=== PATIENT | male | born 1950 | race Caucasian/White ===

== ENCOUNTER 2023-10-03 12:11 | Outpatient (OUT) | payer MEDICARE, SELFPAY ==
[2023-10-03 14:02] LABS: Prostate Specific Antigen Dx <0.13 ng/mL (<=4.00)
== END 2023-10-03 12:12 | disposition home or self-care (01) ==
LOC: LAB 12:11
PROVIDERS: PCP Internal Medicine
DX: C61 Malignant neoplasm of prostate (principal)
CPT/HCPCS: 36415; 84153

== ENCOUNTER 2024-05-30 13:17 | Outpatient (OUT) | payer MEDICARE, SELFPAY ==
--- NOTE | 2024-05-30 | CT_ITS ---
[address] [address] Patient Name: BRIAN BARNARD MRN: [id number] date: 1950 Sex: M Assigned Patient Location: LAB Current Patient Location: Accession/Order Number: [id number] Exam Date: 05/30/2024 14:25 Report Date: 06/01/2024 10:20 At the request of: ADEBAYO CARVALHO Procedure: CT abdomen pelvis w con EXAMINATION: CT abdomen pelvis w con HISTORY: Distended abdomen COMPARISON: CT abdomen pelvis 03/16/2022 TECHNIQUE: Axial, Coronal, and Sagittal images were obtained without and/or with IV contrast as indicated by examination type. Dose reduction techniques were achieved by using automated exposure control and/or adjustment of mA and/or kV according to patient size and/or use of iterative reconstruction technique. FINDINGS: LUNG BASES: No visible pulmonary or pleural disease. LIVER: No enlargement, atrophy, suspicious density, or significant focal lesion. BILIARY: No dilatation or calcification. PANCREAS: No lesion, fluid collection, or abnormal duct dilatation. SPLEEN: No enlargement or focal lesion. ADRENALS: No mass or enlargement. KIDNEYS: No mass, obstruction, or calcification. BOWEL/MESENTERY: No visible mass, obstruction, or bowel wall thickening. AORTA/VASCULAR: No aneurysm or dissection. RETROPERITONEUM: No mass or adenopathy. LYMPH NODES: No adenopathy. URINARY BLADDER: No visible focal wall thickening, lesion, or calculus. PELVIC ORGANS: No visible mass. Pelvic organs appropriate for patient age. ABDOMINAL WALL: No mass or hernia. BONES: L5-S1 moderate disc space narrowing. No bony lesion or fracture. OTHER: Negative. CT/CT abdomen pelvis w con IMPRESSION: 1. No abnormal or suspicious findings to account for patient's symptoms. 2. L5-S1 moderate degenerative disc disease. Electronically authenticated by: BLAYNE YOUNG Date: 06/01/2024 10:20
--- NOTE | 2024-05-30 | XR_ITS ---
The [address] [address] Patient Name: BRIAN BARNARD MRN: [id number] date: 1950 Sex: M Assigned Patient Location: LAB Current Patient Location: LAB Accession/Order Number: [id number] Exam Date: 05/30/2024 14:20 Report Date: 06/02/2024 04:37 At the request of: ADEBAYO CARVALHO Procedure: XR chest 2V EXAMINATION: XR chest 2V HISTORY: COPD exacerbation J44.1 , shortness breath COMPARISON: XR chest 05/31/2019 FINDINGS: LUNGS: Hyperexpanded lungs with coarsening of interstitial markings compatible with COPD. VASCULATURE: No increased pulmonary vasculature. PLEURA: No pneumothorax, effusion, or pleural thickening. CARDIAC: No cardiomegaly or cardiac silhouette abnormality. MEDIASTINUM: No visible mass or adenopathy. BONES: No fracture or visible bone lesion. OTHER: Negative. XR/XR chest 2V IMPRESSION: 1. No acute cardiopulmonary process. 2. Grossly stable chronic changes compatible with COPD. Electronically authenticated by: BLAYNE YOUNG Date: 06/02/2024 04:37
--- OUTSIDE RECORDS SUMMARY | 2024-05-30 13:32 | XMS_ITS | CCD ---
Author Organization [facility] Inform ion Partnership [facility] Care Team Providers Care Rail Bender Name Role Phone Radames Mart MD Primary Care Provider MAYDA CASTRO Admitting Unavailable MAYDA CASTRO Attending Unavailable RADAMES MART Primary Care Unavailable MAYDA CASTRO Referring Unavailable RADAMES MART Primary Care Unavailable RADAMES MART Primary Care Unavailable MAYDA CASTRO Referring Unavailable Orlando Valencia Unavailable MISC, DR LAU Admitting Unavailable MAIA, DR FIORE Primary Care Unavailable MISC, DR LAU Attending Unavailable MISC, DR LAU Consulting Unavailable MAIA, DR FIORE Primary Care Unavailable MISC, DR LAU Attending Unavailable MISC, DR LAU Consulting Unavailable MISC, DR LAU Admitting Unavailable ZIEBER, DR BLAYNE Mendez Consulting Unavailable MISC, DR LAU Admitting Unavailable MAIA, DR FIORE Primary Care Unavailable MISC, DR LAU Attending Unavailable MISC, DR LAU Consulting Unavailable MISC, DR LAU Admitting Unavailable MAIA, DR FIORE Consulting Unavailable MART, DR FIORE Primary Care Unavailable MISC, DR LAU Attending Unavailable RADAMES MART Attending Unavailable Allergies Allergy Classification Reported Allergen(s) Allergy Type Date of Onset Reaction(s) Facility (1 source) Theophylline Drug Allergy [facility] Shoobs Other Medications Current Medications Medication Drug Class(es) Dates Sig (Normalized) Sig (Original) 30 actuat aclidinium bromide 0.4 mg/actuat dry powder inhaler (3 sources) take 1 puff(s) by mo uth twice daily aclidinium (TUDORZA PRESSAIR) 400 MCG/ACT AEPB inhaler INHALE 1 PUFF BY MOUTH 2 TIMES A DAY 0 Active take 1 puff(s) by inhalation at bedtime ACLIDINIUM BROMIDE IN Inhale 1 puff into the lungs in the morning and at bedtime 0 Active Aclidinium Hortense 400 MCG/ACT (1 source) take 1 puff(s) by inhalation once daily Aclidinium Hortense 400 MCG/ACT 1 puff Inhalation daily Active [id number] actuat albuterol 0.09 mg/actuat metered dose inhaler (3 sources) beta2-Adrenergic Agonist take 2 puff(s) by inhalation four times daily Albuterol Sulfate HFA 108 (90 Base) MCG/ACT 2 puffs Inhalation four times a day Active take 2 puff(s) by in halation every six hours as needed ALBUTEROL IN Inhale 2 puffs into the lungs every 6 hours PRN 0 Active bicalutamide 50 mg oral tablet (1 source) Androgen Receptor Inhibitor take 1 tablet by mouth every twenty-four hours Bicalutamide 50 MG 1 tablet Orally Once a day Active 120 actuat budesonide 0.16 mg/actuat / formoterol fumarate 0.0045 mg/actuat metered dose inhaler (1 source) Corticosteroid, beta2-Adrenergic Agonist take 2 puff(s) by inhalation twice daily Budesonide-Formotero l Fumarate 160-4.5 MCG/ACT 2 puffs Inhalation Twice a day Active calcium chloride 0.0014 meq/ml / potassium chloride 0.004 meq/ml / sodium chloride 0.103 meq/ml / sodium lactate 0.028 meq/ml injectable solution (1 source) Start: 05-04-20 lactated ringers infusion Start: 05-04-2022 lactated ringe rs infusion clopidogrel 75 mg oral tablet (3 sources) P2Y12 Platelet Inhibitor take 1 tablet by mouth every twenty-four hours Plavix 75 MG 1 tablet Orally Once a day Active Doxazosin (2 sources) alpha-Adrenergic Alex Start: DOXAZOSIN MESYLATE PO take 1 tablet by shirlene th every twenty-four hours Doxazosin Mesylate 2 MG 1 tablet Orally Once a day Active 60 actuat fluticasone propionate 0.25 mg/actuat / salmeterol 0.05 mg/actuat dry powder inhaler (2 sources) Corticosteroid, beta2-Adrenergic Agonist take 1 puff(s) by inhalation every twelve hours fluticasone-salmeterol (ADVAIR) 250-50 MCG/ACT AEPB diskus inhaler Inhale 1 puff into the lungs every 12 hours 0 Active 10 ml lidocaine hydrochloride 10 mg/ml injection (1 source) Antiarrhythmic, Amide Local Anesthetic Start : 05-04 End: 05-04 lidocaine PF 1 % injection 1 mL linaclotide (1 source) Guanylate Cyclase-C Agonist Linzess PRN Active mirtazapine 30 mg oral tablet (4 sources) take 1 tablet by mouth every twenty-four hours Mirtazapine 30 MG 1 tablet at bedtime Orally Once a day Active mirtazapine (REM JAYNA) 15 MG tablet 1 tablet 0 Active take 1 tablet by mouth once raya y mirtazapine (REMERON JESSE-TAB) 30 MG disintegrating tablet Take 30 mg by mouth nightly 0 Active omeprazole 20 mg delayed release oral capsule (3 sources) Proton Pump Inhibitor take 1 capsule by mouth once daily PriLOSEC 20 MG 1 capsule Orally Once a day for 30 day(s) Active Oxygen 2 liters (1 source) Oxygen 2 liters Active simvastatin 40 mg oral tablet (3 sources) HMG-CoA Reductase Inhibitor take 1 tablet by mouth once daily in the evening Simvastatin 40 MG 1 tablet in the evening Orally Once a day Active 5 ml sodium chloride 9 mg/ml injection (3 sources) Start: 0.9 % sodium chloride infusion Start: 05-03-2022 sodium chlorid e flush 0.9 % injection 5-40 mL Wixela Inhub 500-50 MCG/DOSE (1 source) Start: 05-02-2019 take 1 puff(s) by inhalation twice daily Wixela Inhub 500-50 MCG/DOSE 1 puff Inhalation Twice a day for 30 days Apr, Active Problems Problem Classification Problem Date Documented Da te Episodic/Chronic Cancer of prostate (4 sources) Malignant neoplasm of prostate; Translations: [MALIGNANT NEOPLASM OF PROSTATE] Onset: 04-04-2023 Chronic Chronic obstructive pulmonary disease and bronchiectasis (1 source) Emphysema; Translations: [Emphysema, unspecified] Chronic Immunizations and screening for infectious disease (1 source) Contact with and (suspected) exposure to tuberculosis; Translations: [Exposure to tuberculosis (event)] Episodic Other gastrointestinal disorders (1 source) Flatulence, eructation and gas pain; Translations: [Abdominal distension (gaseous)] Episodic Other gastrointestinal disorders (1 source) Constipation; Translations: [Constipation, unspecified] Episodic Other gastrointestinal disorders (1 source) Abdominal distension (gaseous) Episodic Other gastrointestinal disorders (1 source) Constipation, unspecified Episodic Other lower respiratory disease (1 source) Multiple nodules of lung; Translations: [Other nonspecific abnormal finding of lung field] Episodic Other screening for suspected conditions (not mental disorders or infectious disease) (1 source) Raised prostate specific antigen; Translations: [Elevated prostate specific antigen [PSA]] Episodic Results Test Name Value Interpretation Reference Range Facility [place] BONE SC BODYon 022 NM BONE [facility] BODY EXAMINATION: NM BONE SC BODY HISTORY: Primary malignant neoplasm of prostate COMPARISON: No relevant comparison available. TECHNIQUE: After obtaining the patient's consent, 25.5 mCi Technetium 99m MDP was injected intravenously. Images were obtained approximately two hours later. FINDINGS: ABNORMALITIES: No abnormal or suspicious radiotracer accumulation. OTHER: Negative. IMPRESSION: 1. No evidence of skeletal metastasis. Electronically authenticated by: BLAYNE YOUNG Date: 2022-07-26 14:47 Normal [facility] Surgical Pathologyon 022 Surgical Pathology (NOTE) -- Diagnosis -- A. PROSTATE, RIGHT BASE LATERAL, NEEDLE CORE BIOPSY: - BENIGN PROSTATIC TISSUE. B. PROSTATE, AREA OF INTEREST, NEEDLE CORE BIOPSIES: - PROSTATIC ADENOCARCINOMA, LACY SCORE 4+3 = 7 (GRADE GROUP 3), 3 FOCI (5, 5 AND 8 MM) IN 3 OF 3 NEEDLE CORE BIOPSIES (46%). - SEE COMMENT. C. PROSTATE, LEFT APEX MEDIAL, NEEDLE CORE BIOPSY: - BENIGN PROSTATIC TISSUE. D. PROSTATE, LEFT APEX LATERAL, NEEDLE CORE BIOPSY: - ATYPICAL SMALL ACINAR PROLIFERATION (BRADEN). E. PROSTATE, LEFT MID MEDIAL, NEEDLE CORE BIOPSY: - BENIGN PROSTATIC TISSUE. F. PROSTATE, LEFT MID LATERAL, NEEDLE CORE BIOPSY: - PROSTATIC ADENOCARCINOMA, LACY SCORE 4+3 = 7 (GRADE GROUP 3), 9 MM IN 1 NEEDLE CORE BIOPSY (75%). G. PROSTATE, LEFT BASE MEDIAL, NEEDLE CORE BIOPSY: - PROSTATIC ADENOCARCINOMA, LACY SCORE 3+4 = 7 (GRADE GROUP 2), 0.5 MM FOCUS IN 1 NEEDLE CORE BIOPSY (3%). H. PROSTATE, LEFT BASE LATERAL, NEEDLE CORE BIOPSY: - PROSTATIC ADENOCARCINOMA, LACY SCORE 4+3 = 7 (GRADE GROUP 3), 4.5 MM IN 1 NEEDLE CORE BIOPSY (30%). I. PROSTATE, RIGHT APEX MEDIAL, NEEDLE CORE BIOPSY: - BENIGN PROSTATIC TISSUE. J. PROSTATE, RIGHT BASE MEDIAL, NEEDLE CORE BIOPSY: - BENIGN PROSTATIC TISSUE. K. PROSTATE, RIGHT MID LATERAL, NEEDLE CORE BIOPSY: - BENIGN PROSTATIC TISSUE. L. PROSTATE, RIGHT APEX LATERAL, NEEDLE CORE BIOPSY: - BENIGN PROSTATIC TISSUE. M. PROSTATE, RIGHT MID MEDIAL, NEEDLE CORE BIOPSY: - BENIGN PROSTATIC TISSUE. -- Diagnosis Comment -- SPECIMEN B WAS EVALUATED WITH IMMUNOSTAIN FOR P504S/HMW CK/P63 (TRIPLE STAIN*, CONTROL APPROPRIATE), WHICH DEMONSTRATES RACEMASE EXPRESSION AND LACK OF A BASAL CELL LAYER IN THE ABNORMAL GLANDS, CONSISTENT WITH ADENOCARCINOMA. THE LACY GRADE 4 COMPONENT COMPRISES APPROXIMATELY 60-70% OF THE ADENOCARCINOMA IN THE INVOLVED BIOPSIES. FOR CARDING SUPERVISOR THE SLIDES OF SPECIMEN B WERE REVIEWED BY A SECOND PATHOLOGIST (FERNANDO). * THIS TEST WAS DEVELOPED AND ITS PERFORMANCE CHARACTERISTICS DETERMINED BY [facility]. IT HAS NOT BEEN CLEARED OR APPROVED BY THE [place] FOOD AND DRUG ADMINISTRATION. THE FDA HAS DETERMINED THAT SUCH CLEARANCE OR APPROVAL IS NOT NECESSARY. THIS TEST IS USED FOR CLINICAL PURPOSES. IT SHOULD NOT BE REGARDED INVESTIGATIONAL OR FOR RESEARCH. THIS LABORATORY IS CERTIFIED UNDER THE CLINICAL LABORATORY IMPROVEMENT AMENDMENTS OF 1988 (CLIA) QUALIFIED TO PERFORM HIGH COMPLEXITY CLINICAL LABORATORY TESTING. Jean-Pierre Gallardo M.D. Electronically Signed Out 05/05/2022 Clinical Information Pre-op Diagnosis: ELEVATED PSA Operative Findings: PROSTATE BIOPSIES Operation Performed: FUSION PROSTATE BIOPSY WITH ULTRASOUND Source of Specimen A: RIGHT BASE LATERAL B: AREA OF INTEREST C: LEFT APEX MEDIAL D: LEFT APEX LATERAL E: LEFT MID MEDIAL F: LEFT MID LATERAL G: LEFT BASE MEDIAL H: LEFT BASE LATERAL I: RIGHT APEX MEDIAL J: RIGHT BASE MEDIAL K: RIGHT MID LATERAL L: RIGHT APEX LATERAL M: RIGHT MID MEDIAL Gross Description BRIAN QUEZADA, PROSTATE BIOPSIES All specimens are received on sponges and are reid-white needle core biopsies less than < 0.1 cm in diameter with the following lengths: A. RIGHT BASE LATERAL Two cores, 0.5 and 0.6 cm in length. Entirely 1cs. B. AREA OF INTEREST Three cores, 1.0, 1.3 and 1.6 cm in length. Entirely 2cs. C. LEFT APEX MEDIAL One core, 1.5 cm in length. Entirely 1cs. D. LEFT APEX LATERAL One core, 0.8 cm in length. Entirely 1cs. E. LEFT MID MEDIAL One core, 1.3 cm in length. Entirely 1cs. F. LEFT MID LATERAL One fragmented core, 1.2 cm in length. Entirely 1cs. G. LEFT BASE MEDIAL One core, 1.5 cm in length. Entirely 1cs. H. LEFT BASE LATERAL One core, 1.5 cm in length. Entirely 1cs. I. RIGHT APEX MEDIAL Two cores, 0.4 and 0.6 cm in length. Entirely 1cs. J. RIGHT BASE MEDIAL One core, 1.5 cm in length. Entirely 1cs. K. RIGHT MID LATERAL Two cores, 0.5 and 0.7 cm in length. Entirely 1cs. L. RIGHT APEX LATERAL One core, 1.9 cm in length. Entirely 1cs. M. RIGHT MID MEDIAL Two core, 0.4 and 0.6 cm in length. Entirely 1cs. yr tm Microscopic Description A-M. Microscopic examination performed. SURGICAL PATHOLOGY CONSULTATION Patient Name: BRIAN QUEZADA [facility] Rec: [id number] Path Number: [id number] [facility] [address] [place] [id number] Normal [facility] Comment on above: Performed By: #### P PPVS #### [employer] [address] [place] [id number] Delivery Aide: Brady Wilkes MD EKG 12 LeadOrdered By: Ney Ferrara on 04-24-2022 Atrial Rate 91 BPM [employer] Phone: P Parchman 88 degrees [employer] Phone: P-R Interval 158 ms [employer] Phone: Q-T Interval 334 ms [employer] Phone: QRS Duration 90 ms [employer] Phone: QTc Calculation (Bazett) 410 ms [employer] Phone: R Parchman 42 degrees [employer] Phone: T Parchman 81 degrees [employer] Phone: Ventricular Rate 91 BPM KATHLEEN QUINONEZ [employer] Work Phone: [facility] [employer] Work Phone: EKG 12 Leadon 04-24-2022 Normal sinus rhythm Low voltage QRS Borderline ECG No previous ECGs available [facility] Ney Cohn MD - 04/24/2022 Normal sinus rhythm Low voltage QRS Borderline ECG No previous ECGs available [facility] [employer] Work Phone: BUN & Creatinineon 2 Creatinine [Mass/Vol] 0.93 mg/dL 0.70 - 1.20 mg/dL [facility] [employer] GFR >60 >60 mL/min [facility] GFR Non- >60 >60 mL/min [facility] GFR/1.73 sq M.predicted MDRD (S/P/Bld) [Vol rate/Area] [facility] Comment on above: Average GFR for 60-6 9 years old: 85 mL/min/1.73sq m Chronic Kidney Disease: <60 mL/min/1.73sq m Kidney failure: <15 mL/min/1.73sq m eGFR calculated using average adult body mass. Additional eGFR calculator available at: http://www.[employer]/multiple_crcl_2011.htm Urea nitrogen (BldV) [Mass/Vol] 10 mg/dL 8 - 23 mg/dL [facility] BUN + Creatinineon 2 (cont.) Normal [facility] Comment on above: Result Comment: Aver age GFR for 60-69 years old: 85 mL/min/1.73sq m Chronic Kidney Disease: <60 mL/min/1.73sq m Kidney failure: <15 mL/min/1.73sq m eGFR calculated using average adult body mass. Additional eGFR calculator available at: http://www.[employer]/multiple_crcl_2012.htm Performed By: #### C BC, BUNCRT, LYTE #### [facility] [address] [facility] [place] [address] Delivery Aide: Jean-Pierre Gallardo MD Creatinine [Mass/Vol] 0.93 mg/dL Normal 0.70-1.20 [facility] Comment on above: Performed By: #### C BC, BUNCRT, LYTE #### [facility] [address] [place] [address]. [place] [address] Delivery Aide: Jean-Pierre Gallardo MD GFR, Amer >60 Normal >60 [facility] Comment on above: Performed By: #### C BC, BUNCRT, LYTE #### [facility] [address] [place] [address]. [place] [address] Delivery Aide: Jean-Pierre Gallardo MD GFR,non Amer >60 Normal >60 [facility] Comment on above: Performed By: #### C BC, BUNCRT, LYTE #### [facility] [address] [place] [address]. [place] [address] Delivery Aide: Jean-Pierre Gallardo MD Urea nitrogen [Mass/Vol] 10 mg/dL Normal 8-23 [facility] Comment on above: Performed By: #### C BC, BUNCRT, LYTE #### [facility] [address] [place] [address]. [place] [address] Delivery Aide: Jean-Pierre Gallardo MD CBCon 04-23-2022 Erythrocyte distribution width (RBC) [Ratio] 11.9 % Normal 11.8-14.4 [facility] Comment on above: Performed By: #### C BC, BUNCRT, LYTE #### [facility] [address] [place] [address]. [place] [address] Delivery Aide: Jean-Pierre Gallardo MD Hematocrit (Bld) [Volume fraction] 45.0 % Normal 40.7-50.3 [facility] Comment on above: Performed By: #### C BC, BUNCRT, LYTE #### [facility] [address] [place] [address] Delivery Aide: Jean-Pierre Gallardo MD Hemoglobin (Bld) [Mass/Vol] 14.1 g/dL Normal 13.0-17.0 [facility] Comment on above: Performed By: #### Allan ROMERO BUNHEATHER, LYTE #### [facility] [address] [facility] [place] [address] Delivery Aide: Jean-Pierre Gallardo MD MCH (RBC) [Entitic mass] 30.5 pg Normal 25.2-33.5 [facility] Comment on above: Performed By: #### Allan ROMERO BUNCRT, LYTE #### [facility] [address] [place] [address]. [place] [address] Delivery Aide: Jean-Pierre Gallardo MD MCHC (RBC) [Mass/Vol] 31.3 g/dL Normal 28.4-34.8 [facility] Comment on above: Performed By: #### TONY HART LYTE #### [facility] [address] [place] [address]. [place] [address] Delivery Aide: Jean-Pierre Gallardo MD MCV (RBC) [Entitic vol] 97.4 fL Normal 82.6-102.9 [facility] Comment on above: Performed By: #### TONY HART, LYTE #### [facility] [facility] [place] [address] Delivery Aide: Jean-Pierre Gallardo MD NRBC Automated 0.0 per 100 WBC Normal 0.0 [facility] Comment on above: Performed By: #### Allan ROMERO BUNCRT, LYTE #### [facility] [address] [place] [address]. [place] [address] Delivery Aide: Jean-Pierre Gallardo MD Platelet mean volume (Bld) [Entitic vol] 9.9 fL Normal 8.1-13.5 [facility] Comment on above: Performed By: #### TONY HART LYTE #### [facility] [address] [place] [address] Delivery Aide: Jean-Pierre Gallardo MD Platelets (Bld) [#/Vol] 162 10*3/uL Normal 138-453 [facility] Comment on above: Performed By: #### TONY HART LYTE #### [facility] [address] [facility] [place] [address] Delivery Aide: Jean-Pierre Gallardo MD RBC (Bld) [#/Vol] 4.62 10*6/uL Normal 4.21-5.77 [facility] Comment on above: Performed By: #### TONY HART LYTE #### [facility] [address] [facility] [place] [address] Delivery Aide: Jean-Pierre Gallardo MD WBC (Bld) [#/Vol] 9.2 10*3/uL Normal 3.5-11.3 [facility] Comment on above: Performed By: #### TONY HART LYTE #### [facility] [facility] [place] [address] Delivery Aide: Jean-Pierre Gallardo MD Hematocrit (Bld) [Volume fraction] 45.0 % 40.7 - 50.3 % [facility] Hemoglobin.gastrointes tinal spec 1 Ql (Stl) 14.1 g/dL 13.0 - 17.0 g/dL [facility] MCH (RBC) [Entitic mass] 30.5 pg 25.2 - 33.5 pg [facility] MCHC (RBC) [Mass/Vol] 31.3 g/dL 28.4 - 34.8 g/dL [facility] MCV (RBC) [Entitic vol] 97.4 fL 82.6 - 102.9 fL [facility] NRBC Automated 0.0 0.0 per 100 WBC [facility] Platelet distribution width (Bld) [Ratio] 11.9 % 11.8 - 14.4 % [facility] Platelet mean volume (Bld) [Entitic vol] 9.9 fL 8.1 - 13.5 fL [facility] Platelets (Bld) [#/Vol] 162 10*3/uL [facility] RBC (Bld) [#/Vol] 4.62 10*6/uL 4.21 - 5.7 7 m/uL [facility] WBC (Bld) [#/Vol] 9.2 10*3/uL [facility] Electrolyte Panelon 04-23-20 Anion gap [Moles/Vol] 6 mmol/L Low 9 - 17 mmol/L [facility] Chloride [Moles/Vol] 101 mmol/L 98 - 10 7 mmol/L [facility] CO2 [Moles/Vol] 35 mmol/L High 20 - 31 mmol/L [facility] Interpretation and review of laboratory results Abnormal [facility] Potassium [Moles/Vol] 4.6 mmol/L 3.7 - 5.3 mmol/L [facility] Sodium [Moles/Vol] 142 mmol/L 135 - 144 mmol/L [facility] Electrolyteson 04-23-2022 Anion gap [Moles/Vol] 6 mmol/L Low 9-17 [facility] Comment on above: Performed By: #### C NICK BUNHEATHER, LYTE #### [facility] [address] [place] [address] Delivery Aide: Jean-Pierre Gallardo MD Chloride [Moles/Vol] 101 mmol/L Normal 98-107 [facility] Comment on above: Performed By: #### C NICK BUNCRT, LYTE #### [facility] [address] [place] [address] Delivery Aide: Jean-Pierre Gallardo MD CO2 [Moles/Vol] 35 mmol/L High 20-31 [facility] Comment on above: Performed By: #### TONY HART, LYTE #### [facility] [address] [place] [address] Delivery Aide: Jean-Pierre Gallardo MD Potassium [Moles/Vol] 4.6 mmol/L Normal 3.7-5.3 [facility] Comment on above: Performed By: #### C NICK BUNCRT, LYTE #### [facility] [address] [place] [address] Delivery Aide: Jean-Pierre Gallardo MD Sodium [Moles/Vol] 142 mmol/L Normal 135-144 [facility] Comment on above: Performed By: #### TONY HART LYTE #### [facility] [address] [place] [address] Delivery Aide: Jean-Pierre Gallardo MD No Panel Informationon 04-23 [facility] Chronic pulmonary change without acute cardiopulmonary process. [facility] RIS CONSOLIDATED EXAMINATION: TWO XRAY VIEWS OF THE CHEST 04/23/2022 9:14 am COMPARISON: None. HISTORY: ORDERING SYSTEM PROVIDED HISTORY: pre-op TECHNOLOGIST PROVIDED HISTORY: Pt in [facility] pre-op Reason for Exam: Pre op prostate surg, May 03, 2022. COPD FINDINGS: There is chronic pulmonary change. There is no acute consolidation or effusion. There is no pneumothorax. The mediastinal structures are unremarkable. The upper abdomen unremarkable. The extrathoracic soft tissues are unremarkable. [facility]IS [facility] Frank Roque MD - 04/23/2022 EXAMINATION: TWO XRAY VIEWS OF THE CHEST 04/23/2022 9:14 am COMPARISON: None. HISTORY: ORDERING SYSTEM PROVIDED HISTORY: pre-op TECHNOLOGIST PROVIDED HISTORY: Pt in [facility] pre-op Reason for Exam: Pre op prostate surg, May 03, 2022. COPD FINDINGS: There is chronic pulmonary change. There is no acute consolidation or effusion. There is no pneumothorax. The mediastinal structures are unremarkable. The upper abdomen unremarkable. The extrathoracic soft tissues are unremarkable. IMPRESSION: Chronic pulmonary change without acute cardiopulmonary process. [facility] [employer] Phone: Radiology Study observation (narrative) [facility] [employer] Phone: No Panel InformationOrdered By: Frank Roque on 04-23-2022 [email or web address] Phone: XR CHEST (2 VW)on 04-23-2022 XR CHEST (2 VW) EXAMINATION: TWO XRAY VIEWS OF THE CHEST 04/23/2022 9:14 am COMPARISON: None. HISTORY: ORDERING SYSTEM PROVIDED HISTORY: pre-op TECHNOLOGIST PROVIDED HISTORY: Pt in [facility] pre-op Reason for Exam: Pre op prostate surg, May 03, 2022. COPD FINDINGS: There is chronic pulmonary change. There is no acute consolidation or effusion. There is no pneumothorax. The mediastinal structures are unremarkable. The upper abdomen unremarkable. The extrathoracic soft tissues are unremarkable. IMPRESSION: Chronic pulmonary change without acute cardiopulmonary process. Interpreted by: Frank Roque MD Signed by: Frank Roque MD 04/23/22 Final result Normal [facility] Q - PSA (FREE AND TOTAL)on 0 02-02-2022 PSA, % FREE 13 % (calc) Low >25 [facility] Comment on above: Order Comment: [facility] Testing performed at: [employer], [address] [place] [address], [address] [place] [address], [phone], Manager Quality Systems: Fermín Aj MD [facility] Collection Date/Time: [id number] [facility] Results Received Date/Time: [id number] [facility] Reported Date/Time: Result Comment: PSA(ng/mL) Free PSA(%) Estimated(x) Probability of Cancer(as%) 0-2.5 (*) Approx. 1 2.6-4.0(1) 0-27(2) 24(3) 4.1-10(4) 0-10 56 11-15 28 16-20 20 21-25 16 >or =26 8 >10(+) N/A >50 References:(1)Kevin et al.:Urology 60: 469-474 (2002) (2)Kevin et al.:J.Urol 168: 922-925 (2001) Free PSA(%) Sensitivity(%) Specificity(%) < or = 25 85 19 < or = 30 93 9 (3)Hangona et al.:PAVAN 277: 7257-7389 (1996) (4)Catalona et al.:PAVAN 279: 6322-0327 (1997) (x)These estimates vary with age, ethnicity, family history and LEIF results. (*)The diagnostic usefulness of % Free PSA has not been established in patients with total PSA below 2.6 ng/mL (+)In men with PSA above 10 ng/mL, prostate cancer risk is determined by total PSA alone. The Total PSA value from this assay system is standardized against the equimolar PSA standard. The test result will be approximately 20% higher when compared to the WHO-standardized Total PSA (Siemens assay). Comparison of serial PSA results should be interpreted with this fact in mind. PSA was performed using the Jett Maggie Immunoassay method. Values obtained from different assay methods cannot be used interchangeably. PSA levels, regardless of value, should not be interpreted as absolute evidence of the presence or absence of disease. Performed By: #### 3 [id number] #### [facility] [address] [place] [address] PSA, FREE 0.9 ng/mL Normal [facility] [place] Comment on above: Order Comment: [facility] Testing performed at: [employer] [facility], [address] [place] [address], [address] [place] [address], [id number], Manager Quality Systems: Fermín Aj MD [facility] Collection Date/Time: [facility] Results Received Date/Time: [facility] Reported Date/Time: Performed By: #### 3 [id number] #### [facility] [address] [place] [address] PSA, TOTAL 7.0 ng/mL High < OR = 4.0 [facility] Comment on above: Order Comment: [facility] Testing performed at: [employer] [facility], [address] [place] [address], [address] [place], [address], Manager Quality Systems: Fermín Aj MD [facility] Collection Date/Time: [facility] Results Received Date/Time: [facility] Reported Date/Time: Performed By: #### 3 [id number] #### [facility] [address] [place] [address] Complete Blood Count with Au to Diffon 01-25-2022 Basophils (Bld) [#/Vol] 0.07 10*3/uL Normal 0.00-0.20 [facility] [place] Comment on above: Performed By: #### C BCAD, CMP, LIPD #### [facility] [address] [place], [place] [id number] Basophils/100 WBC (Bld) 1.0 % Normal [facility] [place] Comment on above: Performed By: #### C BCAD, CMP, LIPD #### [facility] [address] [place], [place] [id number] Eosinophils (Bld) [#/Vol] 0.23 10*3/uL Normal 0.02-0.50 [facility] [place] Comment on above: Performed By: #### C BCAD, CMP, LIPD #### [facility] [address] [place], [place] [id number] Eosinophils/100 WBC (Bld) 3.2 % Normal [facility] [place] Comment on above: Performed By: #### C BCAD, CMP, LIPD #### [facility] [address] [place], [place] [id number] Erythrocyte distribution width (RBC) [Ratio] 11.9 % Normal 11.0-15.0 [facility] [place] Comment on above: Performed By: #### C BCAD, CMP, LIPD #### [facility] [address] [place], [place] [id number] Hematocrit (Bld) [Volume fraction] 43.2 % Normal 38.5-50.0 [facility] [place] Comment on above: Performed By: #### C BCAD, CMP, LIPD #### [facility] [address] [place], [place] [id number] Hemoglobin (Bld) [Mass/Vol] 14.3 g/dL Normal 13.0-17.1 [facility] Comment on above: Performed By: #### C BCAD, CMP, LIPD #### [facility] [address] [place], [place] [id number] Lymphocytes (Bld) [#/Vol] 2.0 10*3/uL Normal 0.9-3.9 [facility] Comment on above: Performed By: #### C BCAD, CMP, LIPD #### [facility] [address] [place], [place] [id number] Lymphocytes/100 WBC (Bld) 28.0 % Normal [facility] Comment on above: Performed By: #### C BCAD, CMP, LIPD #### [facility] [address] [place], [place] [id number] MCH (RBC) [Entitic mass] 31.0 pg Normal 27.0-33.0 [facility] Comment on above: Performed By: #### C BCAD, CMP, LIPD #### [facility] [address] [place], [place] [id number] MCHC (RBC) [Mass/Vol] 33.1 g/dL Normal 32.0-36.0 [facility] Comment on above: Performed By: #### C BCAD, CMP, LIPD #### [facility] [address] [place], [place] [id number] MCV (RBC) [Entitic vol] 94 fL Normal 80-100 [facility] Comment on above: Performed By: #### C BCAD, CMP, LIPD #### [facility] [address] [place], [place] [id number] Monocytes (Bld) [#/Vol] 0.7 10*3/uL Normal 0.2-0.9 [facility] Comment on above: Performed By: #### C BCAD, CMP, LIPD #### [facility] [address] [place], [place] [id number] Monocytes/100 WBC (Bld) 9.3 % Normal [facility] Comment on above: Performed By: #### C BCAD, CMP, LIPD #### [facility] [address] [place], [place] [id number] Neutrophils (Bld) [#/Vol] 4.2 10*3/uL Normal 1.5-7.8 [facility] Comment on above: Performed By: #### C BCAD, CMP, LIPD #### [facility] [address] [place], [place] [id number] Neutrophils/100 WBC (Bld) 58.4 % Normal [facility] Comment on above: Performed By: #### C BCAD, CMP, LIPD #### [facility] [address] [place], [place] [id number] Platelet mean volume (Bld) [Entitic vol] 10.20 fL Normal 7.50-12.50 [facility] Comment on above: Performed By: #### C BCAD, CMP, LIPD #### [facility] [address] [place], [place] [id number] Platelets (Bld) [#/Vol] 151 10*3/uL Normal 140-400 [facility] Comment on above: Performed By: #### C BCAD, CMP, LIPD #### [facility] [address] [place], [place] [id number] RBC (Bld) [#/Vol] 4.61 10*6/uL Normal 4.20-5.80 [facility] [place] Comment on above: Performed By: #### C BCAD, CMP, LIPD #### [facility] [address] [place], [place] [id number] RDW-SD 41.6 fL Normal 37.0-50.0 [facility] Comment on above: Performed By: #### C BCAD, CMP, LIPD #### [facility] [address] [place], [place] [id number] WBC (Bld) [#/Vol] 7.2 10*3/uL Normal 3.8-11.0 [facility] [place] Comment on above: Performed By: #### C BCAD, CMP, LIPD #### [facility] [address] [place], [place] [id number] Comprehensive Metabolic Pane champ 01-25-2022 Albumin [Mass/Vol] 4.5 g/dL Normal 3.6-5.1 [place] [place] Comment on above: Performed By: #### C BCAD, CMP, LIPD #### [facility] [address] [place], [place] [id number] Albumin/Globulin [Mass ratio] 2.0 {ratio} Normal 1.0-2.5 [facility] Comment on above: Performed By: #### C BCAD, CMP, LIPD #### [facility] [address] [place], [place] [id number] ALP [Catalytic activity/Vol] 78 U/L Normal 40-129 [facility] Comment on above: Performed By: #### C BCAD, CMP, LIPD #### [facility] [address] [place], [place] [id number] ALT [Catalytic activity/Vol] 17 U/L Normal 9-46 [facility] Comment on above: Result Comment: 10/28 Female reference range changed. Performed By: #### C BCAD, CMP, LIPD #### [facility] [address] [place], [place] [id number] Anion gap [Moles/Vol] 15 mmol/L Normal 12-20 [facility] Comment on above: Result Comment: Effe ctive 12/03/2019 reference range changed. Performed By: #### C BCAD, CMP, LIPD #### [facility] [address] [place], [place] [id number] AST [Catalytic activity/Vol] 20 U/L Normal 10-40 [facility] Comment on above: Performed By: #### C BCAD, CMP, LIPD #### [facility] [address] [place], [place] [id number] Bilirubin [Mass/Vol] 0.53 mg/dL Normal 0.30-1.20 [facility] Comment on above: Performed By: #### C BCAD, CMP, LIPD #### [facility] [address] [place], [place] [id number] BUN/CREA 11 Ratio Normal 6-22 [facility] Comment on above: Performed By: #### C BCAD, CMP, LIPD #### [facility] [address] [place], [place] [id number] Calcium [Mass/Vol] 10.0 mg/dL Normal 8.6-10.2 [facility] [place] Comment on above: Performed By: #### C BCAD, CMP, LIPD #### [facility] [address] [place], [place] [id number] Chloride [Moles/Vol] 103 mmol/L Normal 98-107 [facility] Comment on above: Performed By: #### C BCAD, CMP, LIPD #### [facility] [address] [place], [place] [id number] CO2 [Moles/Vol] 30 mmol/L Normal 20-31 [facility] Comment on above: Performed By: #### C BCAD, CMP, LIPD #### [facility] [address] [place], [place] [id number] Creatinine [Mass/Vol] 1.1 mg/dL Normal 0.7-1.4 [facility] Comment on above: Performed By: #### C BCAD, CMP, LIPD #### [facility] [address] [place], [place] [id number] eGFRAA 81 mL/min/1.73m2 Normal >60 [facility] Comment on above: Performed By: #### C BCAD, CMP, LIPD #### [facility] [address] [place], [place] [id number] eGFRNAA 67 mL/min/1.73m2 Normal >60 [facility] Comment on above: Performed By: #### C BCAD, CMP, LIPD #### [facility] [address] [place], [place] [id number] Globulin (S) [Mass/Vol] 2.3 g/dL Normal 1.9-3.7 [facility] [place] Comment on above: Performed By: #### C BCAD, CMP, LIPD #### [facility] [address] [place], [place] [id number] Glucose [Mass/Vol] 96 mg/dL Normal 65-99 [facility] [place] Comment on above: Result Comment: For FASTING Glucose --- ADA reference ranges: Normal 65-99 mg/dl Prediabetes 100-125 Diabetes >/= 126 Performed By: #### C BCAD, CMP, LIPD #### [facility] [address] [place], [place] [id number] Potassium [Moles/Vol] 4.3 mmol/L Normal 3.5-5.5 [facility] Comment on above: Performed By: #### C BCAD, CMP, LIPD #### [facility] [address] [place], [place] [id number] Protein [Mass/Vol] 6.8 g/dL Normal 6.1-8.1 [facility] Specialist Comment on above: Performed By: #### C BCAD, CMP, LIPD #### [facility] [address] [facility] [place] [id number] Sodium [Moles/Vol] 143 mmol/L Normal 135-146 [facility] Specialist Comment on above: Performed By: #### C BCAD, CMP, LIPD #### [facility] [address] [place], [place] [id number] Urea nitrogen [Mass/Vol] 12 mg/dL Normal 7-25 [facility] Comment on above: Performed By: #### C BCAD, CMP, LIPD #### [facility] [address] [place], [place] [id number] Lipid Panelon 01-25-2022 Cholesterol [Mass/Vol] 162 mg/dL Normal 125-200 No [facility] Comment on above: Result Comment: Low risk < 200mg/dL Borderline risk 201-239 mg/dl High risk > or equal to 240 Performed By: #### C BCAD, CMP, LIPD #### [facility] [address] [place], [place] [id number] Cholesterol in HDL [Mass/Vol] 59 mg/dL Normal >40 [facility] Comment on above: Result Comment: High Cardiovascular Risk HDL <40 mg/dL Low Cardiovascular Risk HDL > or equal to 60 mg/dl Performed By: #### C BCAD, CMP, LIPD #### [facility] [address] [place], [place] [id number] Cholesterol in LDL [Mass/Vol] 79 mg/dL Normal [facility] Comment on above: Result Comment: LDL ATP III CLASSIFICATION LDL less than 100 mg/dl Optimal LDL 100-129 mg/dl Near or above optimal LDL 130-159 Borderline high LDL 160-189 High LDL greater than 189 mg/dl Very High Performed By: #### C BCAD, CMP, LIPD #### [facility] [address] [place], [place] [id number] Cholesterol in VLDL [Mass/Vol] 24 mg/dL Normal [facility] [place] Comment on above: Performed By: #### C BCAD, CMP, LIPD #### [facility] [address] [place], [place] [id number] Cholesterol.total/Chol esterol in HDL [Mass ratio] 3 {ratio} Normal [facility] [place] Comment on above: Performed By: #### C BCAD, CMP, LIPD #### [facility] [address] [place], [place] [id number] Triglyceride [Mass/Vol] 121 mg/dL Normal 30-150 [facility] [place] Comment on above: Result Comment: TRIG ATPIII CLASSIFICATIONS TRIG less than 150 mg/dl Normal TRIG 150-199 mg/dl Borderline High TRIG 200-500 mg/dl High TRIG greather than 500 mg/dl Very High Performed By: #### C BCAD, CMP, LIPD #### [facility] [address] [place], [place] [id number] PSA SCREEN (MEDICARE)on 12-30 TPSA 5.940 ng/mL High <4.000 [facility] [place] Comment on above: Result Comment: PSA Test Method: ECLIA/Gilberto e 601 Performed By: #### P SA MC #### [facility] [address] [place], [place] [id number] Vital Signs Date Time Vital Sign Value Performing Clinician Facility 08-24-2022 10:30-0400 Body height 177.8 cm Orlando Valencia Other [facility] Other 08-24-2022 10:30-0400 Body mass index (BMI) [Ratio] 22.67 kg/m2 Orlando Valencia Other [facility] Other 08-24-2022 10:30-0400 Body weight 71.67 kg Orlando Valencia Other [facility] Other 08-24-2022 10:30-0400 Diastolic blood pressure 86 mm[Hg] Orlando Valencia Other [facility] Other 08-24-2022 10:30-0400 Systolic blood pressure 118 mm[Hg] Orlando Valencia Other [facility] Other 05-03-2022 12:15-0400 Body temperature 98.2 [degF] Mayda Castro MD Work Phone: [facility] 05-03-2022 12:15-0400 Diastolic blood pressure 89 mm[Hg] Mayda Castro MD Work Phone: [facility] 05-03-2022 12:15-0400 Heart rate 77 /min Mayda Castro MD Work Phone: [facility] 05-03-2022 12:15-0400 Respiratory rate 15 /min Mayda Castro MD Work Phone: [facility] 05-03-2022 12:15-0400 SaO2% (BldA) [Mass fraction] 98 % Mayda Castro MD Work Phone: [facility] 05-03-2022 12:15-0400 Systolic blood pressure 115 mm[Hg] Mayda Castro MD Work Phone: [facility] 05-03-2022 10:06-0400 Body height 177.8 cm Mayda Castro MD Work Phone: [facility] 05-03-2022 10:06-0400 Body mass index (BMI) [Ratio] 22.96 kg/m2 Mayda Castro MD Work Phone: [employer] 05-03-2022 10:06-0400 Body weight 72.58 kg Mayda Castro MD Work Phone: [facility] 04-23-2022 08:05-0400 SaO2% (BldA) [Mass fraction] 95 % Sta 1 [facility] 04-23-2022 08:02-0400 Body height 177.8 cm Sta 1 [facility] 04-23-2022 08:02-0400 Body mass index (BMI) [Ratio] 22.96 kg/m2 Sta 1 [facility] 04-23-2022 08:02-0400 Body temperature 97.7 [degF] Sta 1 [facility] 04-23-2022 08:02-0400 Body weight 72.58 kg Sta 1 [facility] 04-23-2022 08:02-0400 Diastolic blood pressure 68 mm[Hg] Sta 1 [facility] 04-23-2022 08:02-0400 Heart rate 100 /min Sta 1 [facility] 04-23-2022 08:02-0400 Respiratory rate 24 /min Sta 1 [facility] [employer] 04-23-2022 08:02-0400 Systolic blood pressure 132 mm[Hg] Sta 1 [facility] Encounters Encounter Date Encounter Type Care Provider Facility Start: 05-23-2024 End: 05-23-2024 ambulatory RADAMES MART Not Available Start: 04-04-2023 End: 04-05-[address] DOCTOR GARZON Facility:[facility] Start: 02-05-2023 End: 02-06-[address] DOCTOR GARZON Facility:[facility] Start: 08-24-2022 End: 08-24-2022 ambulatory Orlando Erik Other [place] [employer] Other Start: 08-24-2022 [facility] visit new patient Orlando Valencia [facility] Start: 08-04-2022 End: 08-05-[address] DOCTOR GARZON Facility:[facility] Start: 07-26-2022 End: 07-27-[address] RADAMES MART Facility:[facility] Start: 05-03-2022 End: 05-03-2022 ambulatory MAYDA CASTRO [facility] Start: 05-03-2022 End: 05-03-2022 Subsequent hospital visit by physician Mayda Castro MD Work Phone: [facility] Comment on above: PSA elevation Start: 04-23-2022 End: 04-26-2022 [facility] Start: 04-23-2022 End: 04-28-2022 ambulatory RADAMES MART [facility] Start: 04-23-2022 End: 04-25-2022 Subsequent hospital visit by physician Rina X-Ray [facility] Comment on above: Arrived Start: 04-23-2022 End: 04-27-2022 Subsequent hospital visit by physician Rina Pat 1 [facility] PRE-ADMIT TESTING Procedures Date Procedure Procedure Detail Performing Clinician Start: 04-04-[address] DOCTOR GARZON Comment on above: Performed By: #### P SAD #### [facility] [address] [place] [address] Dr. Mireya Tabor Start: 02-05-[address] DOCTOR GARZON Comment on above: Performed By: #### P SAD #### [facility] [address] [address] [address] Mireya Tabor Start: 08-04-[address] DOCTOR GARZON Comment on above: Performed By: #### P SAD #### [facility] [address] [address] [address] Mireya Tabor Start: 04-23-2022 Radiologic exam ches t 2 views Fish Rider MD Work Phone: Start: 04-23-2022 Electrolyte panel Fish Rider MD Work Phone: Start: 04-23-2022 Ecg routine ecg w/le ast 12 lds w/i&r Fish Rider MD Work Phone: Plan of Treatment Date Care Activity Detail Author Start: 01-25-2023 Lipid panel Lipids [facility] Start: 07-29-2022 Influenza vaccination Flu vacc ine (Season Ended) [facility] Start: 05-03-2022 End: 05-03-2022 Admission to same day surgery center 05/03/2022 Surgery IP Unit Mayda Castro MD [address] [place] [address] FUSION PROSTATE BIOPSY WITH ULTRASOUND MRI WAS AT [facility] ON 03/12 [facility] Comment on above: FUSION PROSTATE BIOP SY WITH ULTRASOUND MRI WAS AT [facility] ON 03/12 Start: 05-03-2022 End: 05-03-2022 Anesthesia consultation 05/03/2022 Anesthesia Event IP Unit Fish Rider MD [address] [place] [address] [facility] Start: 05-03-2022 Subsequent hospital visit by physician 05/03/2022 Hospital Encounter IP Unit Mayda Castro MD [address] [place] [address] [facility] Start: 05-03-2022 End: 05-03-2022 Biopsy prostate incisional any approach [facility] Start: 05-31-2020 Pneumococcal 65+ yea rs Vaccine (2 - PCV) Pneumococcal 65+ years Vaccine (2 - PCV) [facility] Start: 2017 Abdominal aortic aneurysm screening AAA screen [facility] Start: 2002 Shingles vaccine (1 of 2) Shingles vaccine (1 of 2) [facility] Start: 1997 Screening for malign ant neoplasm of colon [facility] Start: 1992 Prostate specific antigen measurement Prostate Specific Antigen (PSA) Screening or Monitoring [facility] Start: 1971 DTaP/Tdap/Td vaccine (1 - Tdap) DTaP/Tdap/Td vaccine (1 - Tdap) [facility] Start: 1970 Hepatitis C screening Hepatitis C sc reen [facility] Start: 1964 Depression Screen Depression Screen [facility] Start: 1952 Annual Wellness Visi t (AWV) Annual Wellness Visit (AWV) [facility] Continuous pulse oximetry Pulse oximetry, continuous Respiratory Care Routine Every 4hr until discontinued starting 05/04/2022 [employer] Phone: Comment on above: Every 4hr until disc ontinued starting 05/04/2022 Surgical Pathology Surgical Path ology Lab Routine PSA elevation Release Upon Ordering for 1 Occurrences starting 05/03/2022 [employer] Phone: Comment on above: Release Upon Orderin g for 1 Occurrences starting 05/03/2022 End: 05-03-2022 SURGICAL PATHOLOGY REPORT SURGICAL PATHOLOGY REPORT Lab Routine Once for 1 Occurrences starting 05/03/2022 until 05/03/2022 [employer] [facility] Phone: Comment on above: Once for 1 Occurrenc es starting 05/03/2022 until 05/03/2022 Immunizations Immunization Date Immunization Notes Care Provider [facility] 02-02-2022 COVID-19, Pfizer Pur ple top, DILUTE for use, 12+ yrs, 30mcg/0.3mL dose Sta [facility] Phone: 01-29-2021 COVID-19, Pfizer Pur ple top, DILUTE for use, 12+ yrs, 30mcg/0.3mL dose Sta R[facility] Phone: 01-08-2021 COVID-19, Pfizer Pur ple top, DILUTE for use, 12+ yrs, 30mcg/0.3mL dose Sta Rm [employer] Phone: Payers Date Payer Category Payer Medicare [id number] 1959 Private Health Insurance [id number] 1950 Unknown [id number] 2.16.8 [id number] 1950 Unknown [id number] 2.16.8 [id number] 1950 Unknown [id number] 2.16.8 [id number] 1950 Unknown [id number] 2.16.84 [id number] 1950 Unknown [id number] 2.16.84 [id number] 1952 Unknown [id number] 2.16.84 [id number] 1950 Unknown [id number] 2.16.84 [id number] 1950 Unknown [id number] 2.16.84 [id number] Social History Date Type Detail Facility Start: 04-23-2022 Tobacco smoking status [facility] Ex-smoker [facility] Phone: End: 11-28-2006 History of tobacco use Current smoker [facility] Phone: Start: 04-23-2022 Tobacco use and exposure Smokeless tobacco non-user [facility] Phone: Start: 04-23-2022 End: 05-03-2022 Alcohol intake Current drinker of alcohol (finding) [facility] Phone: Start: 04-23-2022 End: 05-03-2022 Alcohol intake [facility] [employer] Phone: Start: 1950 Sex Assigned At Not on file [facility] [employer] Phone: Start: 04-23-2022 End: 05-03-2022 Exposure to SARS-CoV-2 (event) Not sure [facility] Phone: Sex Assigned At Sex Assigned At [facility] Other Evaluation note 08-24-2022 Note Date & Type Note Facility 08-24-2022 Evaluation note Encounter Date Diagnosis Assessment Notes Jul, Abdominal distension (ICD-10 - R14.0) Jul, Constipation (ICD-10 - K59.00) OBTAIN COLONOSCOPY FROM [facility] MAY USE LINZESS NEEDED F/U PRN [facility] Other Hospital Discharge instructions 05-03-2022 Instructions Note Date & Type Note Facility 05-03-2022 Hospital Discharg e instructions Mayda Castro MD - 05/03/2022 Patricio, Everything went excellent today. Biopsy results will come back in 1 to 1.5 weeks. We will sit down and discuss this in my office. Please resume your Plavix on Tuesday. Okay to resume all other home medications today. Regular activity. No restrictions. Regular diet. Best, Dr. Mayda Castro MD documented in this encounter [facility] [employer] Phone: History of Present illness Narrative 04-23-2022 Erin Mclaughlin, [employer] - 04/23/2022 8:00 AM EDT Note Date & Type Note Facility 04-23-2022 History of Present illness Narrative PAT Progress Note Pt Name: Brian Quezada Birthdate: 1950 Date of evaluation: 04/23/2022 [x] Called to PAT. I spoke to the patient, Brian Quezada, a 71 y.o. male, who is scheduled for an upcoming FUSION PROSTATE BIOPSY WITH ULTRASOUND MRI WAS AT [facility] ON 03/12 by Mayda Castro MD for DX ELEVATED PSA on 05/03/2022 at 1200. [x] I reviewed the hard copy urology progress note by Dr. Castro for an Interval History and Physical Note the day of surgery. History of coronary artery disease with 6 stents, COPD, hyperlipidemia. Patient uses 2L continuous home oxygen. Patient has shortness of breath with exertion. He states he uses inhaler and nebulizer as needed and has not used them in 3-4 months. Patient monitors his SpO2 at home and states it is in the 80's after getting up in the morning. After 10 minutes or so, it goes back up to low 90's. Patient has occasional palpitations with exertion. He states primary care manages his COPD. Patient denies chest pain, dizziness, syncope. Functional Capacity per pt: 1) Pt is not able to walk 2 city blocks on level ground without SOB. 2) Pt is not able to climb 2 flights of stairs without SOB. 3) Pt is not able to walk up a hill for 1-2 city blocks without SOB. Vital signs: BP 132/68 Pulse 100 Temp 97.7 F (36.5 C) (Temporal) Resp 24 Ht 5' 10 (1.778 m) Wt 160 lb (72.6 kg) SpO2 95% BMI 22.96 kg/m Physical Exam: General Appearance: Alert, well appearing, and in no acute distress. Mental status: Oriented to person, place, and time. Lungs: Inspiratory and expiratory wheezing, diminished to auscultation. Bilateral equal air entry, no rales or rhonchi, and normal effort. Cardiovascular: Normal rate, regular rhythm, no murmur, gallop, or rub. Investigations: Laboratory Testing: Recent Results (from the past 24 hour(s)) EKG 12 Lead Collection Time: 04/23/22 8:44 AM Result Value Ref Range Ventricular Rate 91 BPM Atrial Rate 91 BPM P-R Interval 158 ms QRS Duration 90 ms Q-T Interval 334 ms QTc Calculation (Bazett) 410 ms P Parch[place] 88 degrees R Parchman 42 degrees T Parch[place] 81 degrees CBC Collection Time: 04/23/22 9:11 AM Result Value Ref Range WBC 9.2 3.5 - 11.3 k/uL RBC 4.62 4.21 - 5.77 m/uL Hemoglobin 14.1 13.0 - 17.0 g/dL Hematocrit 45.0 40.7 - 50.3 % MCV 97.4 82.6 - 102.9 fL MCH 30.5 25.2 - 33.5 pg MCHC 31.3 28.4 - 34.8 g/dL RDW 11.9 11.8 - 14.4 % Platelets 162 138 - 453 k/uL MPV 9.9 8.1 - 13.5 fL NRBC Automated 0.0 0.0 per 100 WBC Electrolyte Panel Collection Time: 04/23/22 9:11 AM Result Value Ref Range Sodium 142 135 - 144 mmol/L Potassium 4.6 3.7 - 5.3 mmol/L Chloride 101 98 - 107 mmol/L CO2 35 (H) 20 - 31 mmol/L Anion Gap 6 (L) 9 - 17 mmol/L BUN & Creatinine Collection Time: 04/23/22 9:11 AM Result Value Ref Range BUN 10 8 - 23 mg/dL CREATININE 0.93 0.70 - 1.20 mg/dL GFR Non- >60 >60 mL/min GFR >60 >60 mL/min GFR Comment Recent Labs 04/23/22 0911 HGB 14.1 HCT 45.0 WBC 9.2 MCV 97.4 NA 142 K 4.6 CL 101 CO2 35* BUN 10 CREATININE 0.93 No results for input(s): COVID19 in the last 720 hours. Narrative EXAMINATION: TWO XRAY VIEWS OF THE CHEST 04/23/2022 9:14 am COMPARISON: None. HISTORY: ORDERING SYSTEM PROVIDED HISTORY: pre-op TECHNOLOGIST PROVIDED HISTORY: Pt in PAT pre-op Reason for Exam: Pre op prostate surg, May 03, 2022. COPD FINDINGS: There is chronic pulmonary change. There is no acute consolidation or effusion. There is no pneumothorax. The mediastinal structures are unremarkable. The upper abdomen unremarkable. The extrathoracic soft tissues are unremarkable. Impression Chronic pulmonary change without acute cardiopulmonary process. FAITH Negron CNP Electronically signed 04/23/2022 at 1:55 PM documented in this encounter [employer] Phone: Evaluation note Note Date & Type Note Facility Evaluation note Diagnosis PSA elevation Elevated prostate specific antigen (PSA) documented in this encounter [facility] [employer] Phone: History general Narrative - Reported Note Date & Type Note Facility History general Narrative - Reported Type Medical History Hypercholesterolemia Medical History Heart disease Medical History Anxiety Medical History Depression Medical History GERD (gastroesophageal reflux di sease) Medical History COPD (chronic obstru ctive pulmonary disease) Medical History emphysema Medical History lung chest nodule Medical History prostate cancer Surgical History hernia Surgical History cardiac stent Surgical History wisdom teeth Hospitalization History see above [facility] Other Reason for visit Narrative Auth/Cert Note Date & Type Note Facility Reason for visit Narrative Specialty Diagnoses / Procedures Referred By Dat yadav Referred To Contact Diagnoses Elevated PSA DX ELEVATED PSA Procedures WI BIOPSY OF PROSTATE,INCISIONAL FUSION PROSTATE BIOPSY WITH ULTRASOUND MRI WAS AT [facility] ON 03/12 Mayda Castro MD [address] [facility] [address] [place] [address] [employer] [address] [place] [address] Referral ID Status Reason Start Date Expiration Date Visits Re quested Visits Authorized [id number] 1 1 [employer] Work Phone: Summary Purpose Family History No Family History Records FoundNo Family History Records FoundNo Family History Records FoundNo Family History Records Found Advance Directives No Advanced Directives Records FoundNo Advanced Directives Records FoundNo Advanced Directives Records FoundNo Advanced Directives Records Found Additional Source Comments (unrecognized sect ion and content) No Status Records FoundNo Status Records FoundNo Status Records FoundNo Status Records Found INFORMATION SOURCE (unrecogn ized section and content) DATE CREATED AUTHOR 02/05/2022 [facility] Special[facility] DATE CREATED AUTHOR AUTHOR'S ORGANIZ ATION 05/07/2022 [facility] DATE CREATED AUTHOR AUTHOR'S ORGANIZ ATION 04/08/2023 [facility] DATE CREATED AUTHOR AUTHOR'S ORGANIZ ATION 05/25/2024 [facility] dical Specialists EPIC Care Teams (unrecognized sec tion and content) Rail Bender Relationship Specialty Start Date End Date Radames Mart MD [address] [facility] [address] [place] [address] PCP - General Internal Medicine 04/23/22 Rail Bender Relationship Specialty Start Date End Date Radames Mart MD [address] [facility] [address] [place] [address] PCP - General Internal Medicine 04/23/22 Rail Bender Relationship Specialty Start Date End Date Radames Mart MD [address] [place] [address] [address] [place] [address] PCP - General Internal Medicine 04/23/22 Scheduled Active and Recently Administ ered Medications (unrecognized section and content) Medication Order 05/01/2022 05/02/2022 05/03/2022 ceFAZolin (ANCEF) 2000 mg in dextrose 5 % 50 mL IVPB (COMPLETED) 2,000 mg, IntraVENous, ONCE, 1 dose, On Tue05/03/22 at 1130, Antimicrobial Indications: Surgical Prophylaxis, Pre-op (day of surgery), STAT 1120 (Given - Provid er: FAITH Stanton CRNA) sodium chloride flush 0.9 % injection 5-40 mL 5-40 mL, IntraVENous, EVERY 12 HOURS SCHEDULED (2 times per day), First dose on Tue05/03/22 at 1030, Until Discontinued, For Line Patency: Peripheral IV = 5 mL; Midline or Central Line = 10 mL/lumen. If following IV push medication, administer flush at same rate as the IV push. Flush volume is determined by type of infusion therapy being given. For non-viscous solutions use: Peripheral IV = 5 mL Midline or Central Line = 10 mL/lumen For viscous solutions (i.e. blood components, parenteral nutrition, contrast media, or after obtaining blood sample) use: Peripheral IV = 10 mL Midline or Central Line = 20 mL/lumen, Pre-op (day of surgery) 1030 (Due)2100 (Due) Continuous Medication Order 05/01/2022 05/02/2022 05/03/2022 lactated ringers infusion IntraVENous, at 50 mL/hr, CONTINUOUS, Starting on Tue05/04/22 at 0000, Substitute normal saline for patients with renal insufficiency/failure, Pre-op (day of surgery) 1035 (New Bag - Prov ider: Sofi Lemus RN)1115 (NoRateChange - Provider: FAITH Stanton CRNA)1133 (Rate/Dose Change - Provider: FAITH Stanton CRNA)1215 (Stopped - Provider: Drea Keyes RN) PRN Medication Order 05/01/2022 05/02/2022 05/03/2022 0.9 % sodium chloride infusion IntraVENous, at 5-250 mL/hr, PRN, if patient receiving piggyback infusions and maintenance fluids are not ordered OR KVO fluids to protect IV site / prevent frequent line interruptions/ long duration, Starting on Tue05/03/22 at 1009, For piggyback infusion, administer at same rate as piggyback for a total of 25 mL. Enter 25 mL into dose field and piggyback rate into rate field of order. If piggyback is infusing at a rate less than 100 mL/hr, enter 25 mL into dose field and 100 mL/hr into rate field of order. For KVO fluids, enter rate of 20 mL/hr or less into rate field of order., Pre-op (day of surgery) lidocaine PF 1 % injection 1 mL 1 mL, IntraDERmal, ONCE PRN, 1 dose, Starting on Tue05/04/22 at 0000, Until Tue05/04/22 at 2359, IV start, Pre-op (day of surgery) sodium chloride flush 0.9 % injection 5-40 mL 5-40 mL, IntraVENous, PRN, Starting on Tue05/03/22 at 1009, Until Discontinued, Line Care, After every IV line use, For Line Patency: Peripheral IV = 5 mL; Midline or Central Line = 10 mL/lumen. If following IV push medication, administer flush at same rate as the IV push. Flush volume is determined by type of infusion therapy being given. For non-viscous solutions use: Peripheral IV = 5 mL Midline or Central Line = 10 mL/lumen For viscous solutions (i.e. blood components, parenteral nutrition, contrast media, or after obtaining blood sample) use: Peripheral IV = 10 mL Midline or Central Line = 20 mL/lumen, Pre-op (day of surgery) REASON FOR VISIT (unrecogniz ed section and content) PATIENT HERE AT THE REQUEST OF DR MART FOR ABDOMINAL DISTENSTION AND CONSTIPATION FOR RECORDS PERTAINING TO PATIENTS WHO ARE OR HAVE BEEN ENROLLED IN A CHEMICAL DEPENDENCY/SUBSTANCEABUSE PROGRAM, SOME INFORMATION MAY BE OMITTED. This clinical summary was aggregated from multiple sources. Caution should be exercised in using it in the provision of clinical care. This summary normalizes information from multiple sources, and as a consequence, information in this document may materially change the coding, format and clinical context of patient data. In addition, data may be omitted in some cases. CLINICAL DECISIONS SHOULD BE BASED ON THE PRIMARY CLINICAL RECORDS. [facility] provides no warranty or guarantee of the accuracy or completeness of information in this document.
[2024-05-30 13:49] LABS: Alanine Aminotransferase 15 U/L (16-63); Albumin Globulin Ratio 0.9; Albumin Level 3.4 g/dL (3.4-5.0); Alkaline Phosphatase 76 U/L (46-116); Anion Gap 7.9; Aspartate Amino Transferase 13 U/L (15-37); BUN Creatinine Ratio 17.1; Bilirubin Total 0.6 mg/dL (0.2-1.0); Carbon Dioxide 37.1 mmol/L (21.0-32.0); Chloride 103 mmol/L (98-107); Estimated GFR (African America >60 (>=60); Estimated GFR (Non-African Ame >60 (>=60); Globulin 3.8 g/dL; Glucose 107 mg/dL (74-106); Sodium 144 mmol/L (136-145); Total Protein 7.2 g/dL (6.4-8.2)
[2024-05-30 13:59] LABS: TSH W/ REFLEX FT4 2.404 uIU/mL (0.358-3.740)
== END 2024-05-30 13:18 | disposition home or self-care (01) ==
LOC: LAB 13:19
PROVIDERS: PCP Internal Medicine; Visit Provider Internal Medicine
DX: R14.0 Abdominal distension (gaseous) (principal); J44.1 Chronic obstructive pulmonary disease with (acute) exacerbation
CPT/HCPCS: 36415; 71046; 74177; 80053; 84443; Q9967

== ENCOUNTER 2025-09-06 22:07 | Inpatient (IN) | payer MEDICARE, SELFPAY ==
--- OUTSIDE RECORDS SUMMARY | 2024-04-26 05:50 | XMS_ITS ---
Author Organization [facility] in [place] Address [address] [place] [address] Care Team Providers Care Parts Department Manager Name Role Phone Barron CARRION, Radames Primary Care Provider Unavailab Josue Vazquez [facility] [phone] REASON FOR VISIT 6 month f/u w/ PSA prior Encounters Encounter Location Date Provider Diagnosis Urology [facility] [address] [address] 04/26/2024 Josue Castro Plan Of Treatment No Information Progress Notes * Tunde BARNARD RDOB:1950 (75 yo M)Acc No.[id number]:04/26/2024 UNLOCKED PROGRESS NOTE Patient: Tunde KEATING Provider: Olimpia Castro MD :1950 A ge:73 Y S ex:Male Date:04/26/2024 Address:[address] [place] [id number] Pcp:Radames Mart MD Subjective: * Chief Complaints: * 1 . 6 month f/u w/ PSA prior. * Medical History: Objective: * Vitals: Assessment: Plan: * Treatment: * * Electronic signature of Rusty Castro MD, [id number] on 09/14/2025 at 11:18 AM EDT Sign off status: Pending Visit Status: R /S (Rescheduled) * Provider: Olimpia Castro MD Date: 04/26/2024 Generated for Printi /Maty/Shakila on: 1 11:18 AM EDT
--- OUTSIDE RECORDS SUMMARY | 2024-04-26 05:50 | XMS_ITS ---
Author Organization [facility] in [place] Address [address] [place] [address] Care Team Providers Care Travelift Operator Name Role Phone Barron CARRION, Radames Primary Care Provider Unavailab Josue Vazquez [phone] REASON FOR VISIT 6 month f/u w/ PSA prior Encounters Encounter Location Date Provider Diagnosis Urology [facility] [address] [address] 04/26/2024 Josue Castro Plan Of Treatment No Information Progress Notes * Tunde BARNARD RDOB:1950 (75 yo M)Acc No.[id number]:04/26/2024 UNLOCKED PROGRESS NOTE Patient:?Tunde BARNARD :?BUTCH AtkinsOB:1950???Age:73 Y ???Sex:MaleDate:4Phone:[phone]:[address] [place], [place] [phone]:Radames Mart MD Subjective: * Chief Complaints: * 1 . 6 month f/u w/ PSA prior. * Medical History: Objective: * Vitals: Assessment: Plan: * Treatment: * * Electronic signature of Josue Castro MD, [id number] on 09/17/2025 at 02:26 PM EDTSign off status: PendingVisit Status:?R/S (Rescheduled) * Provider: Olimpia Castro MD Date: 0 04/26/2024 Generated for Printing/Faxing/eTransmitting on:?09/17/2025 02:26 PM EDT
--- OUTSIDE RECORDS SUMMARY | 2024-05-07 10:10 | XMS_ITS ---
Author Organization [facility] in [place] Address [address] [place] [address] Care Team Providers Care Casting Sorter Name Role Phone Barron CARRION, Radames Primary Care Provider Unavailab Josue Vazquez [facility] [phone] REASON FOR VISIT 6 month f/u w/ PSA prior Encounters Encounter Location Date Provider Diagnosis U[facility] [address] [address] 05/07/2024 Josue Castro Plan Of Treatment No Information Progress Notes * Tunde BARNARD RDOB:1950 (75 yo M)Acc No.[id number]:05/07/2024 UNLOCKED PROGRESS NOTE Patient: Tunde KEATING Provider: Olimpia Castro MD :1950 A ge:73 Y S ex:Male Date:05/07/2024 Address:[address] [place] [phone] Pcp:Radames Mart MD Subjective: * Chief Complaints: * 1 . 6 month f/u w/ PSA prior. * Medical History: Objective: * Vitals: Assessment: Plan: * Treatment: * * Electronic signature of Rusty Castro MD, [id number] on 09/14/2025 at 11:18 AM EDT Sign off status: Pending Visit Status: R /S (Rescheduled) * Provider: Olimpia Castro MD Date: 0 05/07/2024 Generated for Printi /Maty/Shakila on: 1 11:18 AM EDT
--- OUTSIDE RECORDS SUMMARY | 2024-05-07 10:10 | XMS_ITS ---
Author Organization [facility] in [place] Address [address] [place] [address] Care Team Providers Care Emergency Dispatcher Name Role Phone Barron CARRION, Radames Primary Care Provider Unavailab Josue Vazquez [phone] REASON FOR VISIT 6 month f/u w/ PSA prior Encounters Encounter Location Date Provider Diagnosis U[facility] [address] [address] 05/07/2024 Josue Castro Plan Of Treatment No Information Progress Notes * Tunde BARNARD RDOB:1950 (75 yo M)Acc No.[id number]:05/07/2024 UNLOCKED PROGRESS NOTE Patient:?Tunde BARNARD :?BUTCH AtkinsOB:1950???Age:73 Y ???Sex:MaleDate:4Phone:[phone]:[address] [place], [place] [phone]:Radames Mart MD Subjective: * Chief Complaints: * 1 . 6 month f/u w/ PSA prior. * Medical History: Objective: * Vitals: Assessment: Plan: * Treatment: * * Electronic signature of Josue Castro MD, [id number] on 09/17/2025 at 02:26 PM EDTSign off status: PendingVisit Status:?R/S (Rescheduled) * Provider: Olimpia Castro MD Date: 0 05/07/2024 Generated for Printing/Faxing/eTransmitting on:?09/17/2025 02:26 PM EDT
--- OUTSIDE RECORDS SUMMARY | 2024-10-16 08:20 | XMS_ITS ---
Author Organization [facility] in [place] Address [address] [place] [address] Care Team Providers Care Founder President And Ceo Name Role Phone Barron CARRION, Radames Primary Care Provider Unavailab Josue Vazquez [phone] REASON FOR VISIT 4 mo w/ psa Encounters Encounter Location Date Provider Diagnosis [facility] [address] [address] 10/16/2024 Josue Castro Plan Of Treatment No Information Progress Notes * Tunde BARNARD RDOB:1950 (75 yo M)Acc No.[id number]:10/16/2024 UNLOCKED PROGRESS NOTE Patient:?Tunde BARNARD :?Josue Castro MDDOB:1950???Age:74 Y ???Sex:MaleDate:4Phone:[phone]:[address] [place], [place] [address]Pcp:Radames Mart MD Subjective: * Chief Complaints: * 1 . 4 mo w/ psa. * Medical History: Objective: * Vitals: Assessment: Plan: * Treatment: * * Electronic signature of Josue Castro MD, [id number] on 09/17/2025 at 02:30 PM EDTSign off status: PendingVisit Status:?R/S (Rescheduled) * Provider: Olimpia Castro MD Date: 12/16/2023 Generated for Printing/Faxing/eTransmitting on:?09/17/2025 02:30 PM EDT
--- OUTSIDE RECORDS SUMMARY | 2024-10-16 08:20 | XMS_ITS ---
Author Organization The [facility] in [place] Address [address] [place] [address] Care Team Providers Care Creative Project Manager Name Role Phone Barron CARRION, Radames Primary Care Provider Unavailab Josue Vazquez [phone] REASON FOR VISIT 4 mo w/ psa Encounters Encounter Location Date Provider Diagnosis [facility] [address] [address] 10/16/2024 Josue Castro Plan Of Treatment No Information Progress Notes * Tunde BARNARD RDOB:1950 (75 yo M)Acc No.[id number]:10/16/2024 UNLOCKED PROGRESS NOTE Patient: Tunde KEATING Provider: Olimpia Castro MD :1950 A ge:74 Y S ex:Male Date:10/16/2024 Address:[address] [place], [place] [phone] Pcp:Radames Mart MD Subjective: * Chief Complaints: * 1 . 4 mo w/ psa. * Medical History: Objective: * Vitals: Assessment: Plan: * Treatment: * * Electronic signature of Rusty Castro MD, [id number] on 09/14/2025 at 11:20 AM EDT Sign off status: Pending Visit Status: R /S (Rescheduled) * Provider: Olimpia Castro MD Date: 12/16/2023 Generated for Printi ng/Faxing/eTransmitting on: 1 11:20 AM EDT
--- OUTSIDE RECORDS SUMMARY | 2024-11-13 09:30 | XMS_ITS ---
Author Organization The [facility] in [place] Address [address] [place] [address] Care Team Providers Care Test Worker Name Role Phone Barron CARRION, Radames Primary Care Provider Unavailab Josue Vazquez [phone] REASON FOR VISIT 4 mo w/ psa Encounters Encounter Location Date Provider Diagnosis [facility] [address] [address] 11/13/2024 Josue Castro Plan Of Treatment No Information Progress Notes * Tunde BARNARD RDOB:1950 (75 yo M)Acc No.[id number]:11/13/2024 UNLOCKED PROGRESS NOTE Patient:?Tunde BARNARD :?Josue Castro MDDOB:1950???Age:74 Y ???Sex:MaleDate:4Phone:[phone]:[address] [place], [place] [phone]:Radames Mart MD Subjective: * Chief Complaints: * 1 . 4 mo w/ psa. * Medical History: Objective: * Vitals: Assessment: Plan: * Treatment: * * Electronic signature of Josue Castro MD, [id number] on 09/17/2025 at 02:26 PM EDTSign off status: PendingVisit Status:?R/S (Rescheduled) * Provider: Olimpia Castro MD Date: 1 01/14/2024 Generated for Printing/Faxing/eTransmitting on:?09/17/2025 02:26 PM EDT
--- OUTSIDE RECORDS SUMMARY | 2024-11-13 09:30 | XMS_ITS ---
Author Organization The [facility] in [place] Address [address] [place] [address] Care Team Providers Care Nursing Unit Coordinator Name Role Phone Barron CARRION, Radames Primary Care Provider Unavailab Josue Vazquez [phone] REASON FOR VISIT 4 mo w/ psa Encounters Encounter Location Date Provider Diagnosis [facility] [address] [address] 11/13/2024 Josue Castro Plan Of Treatment No Information Progress Notes * Tunde BARNARD RDOB:1950 (75 yo M)Acc No.[id number]:11/13/2024 UNLOCKED PROGRESS NOTE Patient: Tunde KEATING Provider: Olimpia Castro MD :1950 A ge:74 Y S ex:Male Date:11/13/2024 Address:[address] [place], [place] [phone] Pcp:Radames Mart MD Subjective: * Chief Complaints: * 1 . 4 mo w/ psa. * Medical History: Objective: * Vitals: Assessment: Plan: * Treatment: * * Electronic signature of Rusty Castro MD, [id number] on 09/14/2025 at 11:18 AM EDT Sign off status: Pending Visit Status: R /S (Rescheduled) * Provider: Olimpia Castro MD Date: 01/14/2024 Generated for Printi ng/Faxing/eTransmitting on: 1 11:18 AM EDT
--- OUTSIDE RECORDS SUMMARY | 2025-01-03 10:10 | XMS_ITS ---
Author Organization The [facility] in [place] Address [address] [place] [address] Care Team Providers Care Asphalt Tile Floor Layer Name Role Phone Barron CARRION, Radames Primary Care Provider Unavailab Josue Vazquez [facility] [phone] REASON FOR VISIT 4 mo w/ psa - NOMS Encounters Encounter Location Date Provider Diagnosis [facility] [address] [address] 01/03/2025 Josue Castro Plan Of Treatment No Information Progress Notes * Tunde BARNARD RDOB:1950 (75 yo M)Acc No.[id number]:01/03/2025 UNLOCKED PROGRESS NOTE Patient: Tunde KEATING Provider: Olimpia Castro MD :1950 A ge:74 Y S ex:Male Date:01/03/2025 Address:[address] [place], [place] [phone] Pcp:Radames Mart MD Subjective: * Chief Complaints: * 1 . 4 mo w/ psa - NOMS. * Medical History: Objective: * Vitals: Assessment: Plan: * Treatment: * * Electronic signature of Rusty Castro MD, [id number] on 09/14/2025 at 11:19 AM EDT Sign off status: Pending Visit Status: R /S (Rescheduled) * Provider: Olimpia Castro MD Date: 0 01/03/2025 Generated for Ashleigh garcía/Maty/Abbeitting on: 1 11:19 AM EDT
--- OUTSIDE RECORDS SUMMARY | 2025-01-03 10:10 | XMS_ITS ---
Author Organization The [facility] in [place] Address [address] [place] [address] Care Team Providers Care Crop Duster Helper Name Role Phone Barron CARRION, Radames Primary Care Provider Unavailab Josue Vazquez [phone] REASON FOR VISIT 4 mo w/ psa - NOMS Encounters Encounter Location Date Provider Diagnosis [facility] [address] [address] 01/03/2025 Josue Castro Plan Of Treatment No Information Progress Notes * Tunde BARNARD RDOB:1950 (75 yo M)Acc No.[id number]:01/03/2025 UNLOCKED PROGRESS NOTE Patient:?Tunde BARNARD :?BUTCH AtkinsOB:1950???Age:74 Y ???Sex:MaleDate:01/03/2025Phone:[phone]:[address] [place], [place] [phone]:Radames Mart MD Subjective: * Chief Complaints: * 1 . 4 mo w/ psa - NOMS. * Medical History: Objective: * Vitals: Assessment: Plan: * Treatment: * * Electronic signature of Josue Castro MD, [id number] on 09/17/2025 at 02:28 PM EDTSign off status: PendingVisit Status:?R/S (Rescheduled) * Provider: Olimpia Castro MD Date: 0 01/03/2025 Generated for Printing/Faxing/eTransmitting on:?09/17/2025 02:28 PM DONI
--- OUTSIDE RECORDS SUMMARY | 2025-02-12 08:30 | XMS_ITS ---
Author Organization The [facility] in [place] Address [address] [place] [address] Care Team Providers Care Chip Separator Name Role Phone Barron CARRION, Radames Primary Care Provider Unavailab Josue Vazquez [phone] REASON FOR VISIT 4 mo w/ psa - NOMS, verbally reminded PT of PSA 3/13 Encounters Encounter Location Date Provider Diagnosis Urology [facility] [place] [address] [place] [address] 02/12/2025 Josue Castro Plan Of Treatment No Information Progress Notes * Tunde BARNARD RDOB:1950 (75 yo M)Acc No.[id number]:02/12/2025 UNLOCKED PROGRESS NOTE Patient:?Tunde BARNARD :?Josue Castro, MDDOB:1950???Age:74 Y ???Sex:MaleDate:02/12/2025Phone:[phone]:[address] [place], [place] [address]Pcp:Radames Mart MD Subjective: * Chief Complaints: * 1 . 4 mo w/ psa - NOMS. 2. verbally reminded PT of PSA 3/13. * Medical History: Objective: * Vitals: Assessment: Plan: * Treatment: * * Electronic signature of Josue Castro MD, [id number] on 09/17/2025 at 02:29 PM EDTSign off status: PendingVisit Status:?R/S (Rescheduled) * Provider: Olimpia Castro MD Date: 0 02/12/2025 Generated for Printing/Faxing/eTransmitting on:?09/17/2025 02:29 PM EDT
--- OUTSIDE RECORDS SUMMARY | 2025-02-12 08:30 | XMS_ITS ---
Author Organization The [facility] in [place] Address [address] [place] [address] Care Team Providers Care Technical Artist Name Role Phone Barron CARRION, Radames Primary Care Provider Unavailab Josue Vazquez [facility] [phone] REASON FOR VISIT 4 mo w/ psa - NOMS, verbally reminded PT of PSA 3/ Encounters Encounter Location Date Provider Diagnosis Urology [facility] [place] [address] [place] [address] 02/12/2025 Josue Castro Plan Of Treatment No Information Progress Notes * Tunde BARNARD RDOB:1950 (75 yo M)Acc No.[id number]:02/12/2025 UNLOCKED PROGRESS NOTE Patient: Tunde KEATING Provider: Olimpia Castro MD :1950 A ge:74 Y S ex:Male Date:02/12/2025 Address:[address] [place] [address] Pcp:Radames Mart MD Subjective: * Chief Complaints: * 1 . 4 mo w/ psa - NOMS. 2. verbally reminded PT of PSA 313. * Medical History: Objective: * Vitals: Assessment: Plan: * Treatment: * * Electronic signature of Rusty Castro MD, [id number] on 09/14/2025 at 11:19 AM EDT Sign off status: Pending Visit Status: R /S (Rescheduled) * Provider: Olimpia Castro MD Date: 0 02/12/2025 Generated for Ashleigh garcía/Maty/Abbeitting on: 1 11:19 AM EDT
--- OUTSIDE RECORDS SUMMARY | 2025-03-28 10:10 | XMS_ITS ---
Author Organization The [facility] in [place] Address [address] [place] [address] Care Team Providers Care Stone Hand Name Role Phone Barron CARRION, Radaems Primary Care Provider Unavailab Josue Vazquez [phone] REASON FOR VISIT 4 mo w/ psa - NOMS, verbally reminded PT of PSA 3/13 Encounters Encounter Location Date Provider Diagnosis Urology [facility] [place] [address] [place] [address] 03/28/2025 Josue Castro Plan Of Treatment No Information Progress Notes * Tunde BARNARD RDOB:1950 (75 yo M)Acc No.[id number]:03/28/2025 UNLOCKED PROGRESS NOTE Patient:?Tunde BARNARD :?Josue Castro, MDDOB:1950???Age:74 Y ???Sex:MaleDate:03/28/2025Phone:[phone]:[address] [place], [place] [address]Pcp:Radames Mart MD Subjective: * Chief Complaints: * 1 . 4 mo w/ psa - NOMS. 2. verbally reminded PT of PSA 3/13. * Medical History: Objective: * Vitals: Assessment: Plan: * Treatment: * * Electronic signature of Josue Castro MD, [id number] on 09/17/2025 at 02:27 PM EDTSign off status: PendingVisit Status:?R/S (Rescheduled) * Provider: Olimpia Castro MD Date: 0 03/28/2025 Generated for Printing/Faxing/eTransmitting on:?09/17/2025 02:27 PM EDT
--- OUTSIDE RECORDS SUMMARY | 2025-03-28 10:10 | XMS_ITS ---
Author Organization The [facility] in [place] Address [address] [place] [address] Care Team Providers Care Assembler Mechanical Ordnance Name Role Phone Barron CARRION, Radames Primary Care Provider Unavailab Josue Vazquez [facility] [phone] REASON FOR VISIT 4 mo w/ psa - NOMS, verbally reminded PT of PSA 3/ Encounters Encounter Location Date Provider Diagnosis Urology [facility] [place] [address] [place] [address] 03/28/2025 Josue Castro Plan Of Treatment No Information Progress Notes * Tunde BARNARD RDOB:1950 (75 yo M)Acc No.[id number]:03/28/2025 UNLOCKED PROGRESS NOTE Patient: Tunde KEATING Provider: Olimpia Castro MD :1950 A ge:74 Y S ex:Male Date:03/28/2025 Address:[address] [place] [address] Pcp:Radames Mart MD Subjective: * Chief Complaints: * 1 . 4 mo w/ psa - NOMS. 2. verbally reminded PT of PSA 3/13. * Medical History: Objective: * Vitals: Assessment: Plan: * Treatment: * * Electronic signature of Rusty Castro MD, [id number] on 09/14/2025 at 11:19 AM EDT Sign off status: Pending Visit Status: R /S (Rescheduled) * Provider: Olimpia Castro MD Date: 0 03/28/2025 Generated for Ashleigh garcía/Maty/Shakila on: 1 11:19 AM EDT
--- OUTSIDE RECORDS SUMMARY | 2025-05-07 09:10 | XMS_ITS ---
Author Organization The [facility] in [place] Address [address] [place] [address] Care Team Providers Care Packaging Clerk Name Role Phone Barron CARRION, Radames Primary Care Provider Unavailab Josue Vazquez [phone] REASON FOR VISIT 4 mo w/ psa - NOMS, verbally reminded PT of PSA 3/13 Encounters Encounter Location Date Provider Diagnosis Urology [facility] [place] [address] [place] [address] 05/07/2025 Josue Castro Plan Of Treatment No Information Progress Notes * Tunde BARNARD RDOB:1950 (75 yo M)Acc No.[id number]:05/07/2025 UNLOCKED PROGRESS NOTE Patient:?Tunde BARNARD :?Josue Castro, MDDOB:1950???Age:74 Y ???Sex:MaleDate:05/07/2025Phone:[phone]:[address] [place], [place] [address]Pcp:Radames Mart MD Subjective: * Chief Complaints: * 1 . 4 mo w/ psa - NOMS. 2. verbally reminded PT of PSA 3/13. * Medical History: Objective: * Vitals: Assessment: Plan: * Treatment: * * Electronic signature of Josue Castro MD, [id number] on 09/17/2025 at 02:30 PM EDTSign off status: PendingVisit Status:?R/S (Rescheduled) * Provider: Olimpia Castro MD Date: 0 05/07/2025 Generated for Printing/Faxing/eTransmitting on:?09/17/2025 02:30 PM EDT
--- OUTSIDE RECORDS SUMMARY | 2025-05-07 09:10 | XMS_ITS ---
Author Organization The [facility] in [place] Address [address] [place] [address] Care Team Providers Care Paper Roller Name Role Phone Barron CARRION, Radames Primary Care Provider Unavailab Josue Vazquez [facility] [phone] REASON FOR VISIT 4 mo w/ psa - NOMS, verbally reminded PT of PSA 3/13 Encounters Encounter Location Date Provider Diagnosis Urology [facility] [place] [address] [place] [address] 05/07/2025 Josue Castro Plan Of Treatment No Information Progress Notes * Tunde BARNARD RDOB:1950 (75 yo M)Acc No.[id number]:05/07/2025 UNLOCKED PROGRESS NOTE Patient: Tunde KEATING Provider: Olimpia Castro MD :1950 A ge:74 Y S ex:Male Date:05/07/2025 Address:[address] [place] [address] Pcp:Radames Mart MD Subjective: * Chief Complaints: * 1 . 4 mo w/ psa - NOMS. 2. verbally reminded PT of PSA 3/13. * Medical History: Objective: * Vitals: Assessment: Plan: * Treatment: * * Electronic signature of Rusty Castro MD, [id number] on 09/14/2025 at 11:19 AM EDT Sign off status: Pending Visit Status: R /S (Rescheduled) * Provider: Olimpia Castro MD Date: 0 05/07/2025 Generated for Ashleigh garcía/Maty/Shakila on: 1 11:19 AM EDT
--- OUTSIDE RECORDS SUMMARY | 2025-07-16 09:20 | XMS_ITS ---
Author Organization The [facility] in [place] Address [address] [place] [address] Care Team Providers Care Consulting Actuary Name Role Phone Barron CARRION, Radames Primary Care Provider Unavailab Josue Vazquez [phone] REASON FOR VISIT 4 mo w/ psa - NOMS, verbally reminded PT of PSA 3/13 Encounters Encounter Location Date Provider Diagnosis Urology [facility] [place] [address] [place] [address] 07/16/2025 Josue Castro Plan Of Treatment No Information Progress Notes * Tunde BARNARD RDOB:1950 (75 yo M)Acc No.[id number]:07/16/2025 UNLOCKED PROGRESS NOTE Patient:?Tunde BARNARD :?Josue Castro, MDDOB:1950???Age:74 Y ???Sex:MaleDate:07/16/2025Phone:[phone]:[address] [place], [place] [address]Pcp:Radames Mart MD Subjective: * Chief Complaints: * 1 . 4 mo w/ psa - NOMS. 2. verbally reminded PT of PSA 3/13. * Medical History: Objective: * Vitals: Assessment: Plan: * Treatment: * * Electronic signature of Josue Castro MD, [id number] on 09/17/2025 at 02:28 PM EDTSign off status: PendingVisit Status:?CANC (Cancelled) * Provider: Olimpia Castro MD Date: 0 07/16/2025 Generated for Printing/Faxing/eTransmitting on:?09/17/2025 02:28 PM EDT
--- OUTSIDE RECORDS SUMMARY | 2025-07-16 09:20 | XMS_ITS ---
Author Organization The [facility] in [place] Address [address] [place] [address] Care Team Providers Care Classics Teacher Name Role Phone Barron CARRION, aRdames Primary Care Provider Unavailab Josue Vazquez [facility] [phone] REASON FOR VISIT 4 mo w/ psa - NOMS, verbally reminded PT of PSA 3/ Encounters Encounter Location Date Provider Diagnosis Urology [facility] [place] [address] [place] [address] 07/16/2025 Josue Castro Plan Of Treatment No Information Progress Notes * Tunde BARNARD RDOB:1950 (75 yo M)Acc No.[id number]:07/16/2025 UNLOCKED PROGRESS NOTE Patient: Tunde KEATING Provider: Olimpia Castro MD :1950 A ge:74 Y S ex:Male Date:07/16/2025 Address:[address] [place] [address] Pcp:Radames Mart MD Subjective: * Chief Complaints: * 1 . 4 mo w/ psa - NOMS. 2. verbally reminded PT of PSA 3/13. * Medical History: Objective: * Vitals: Assessment: Plan: * Treatment: * * Electronic signature of Rusty Castro MD, [id number] on 09/14/2025 at 11:19 AM EDT Sign off status: Pending Visit Status: C ANC (Cancelled) * Provider: Olimpia Castro MD Date: 0 07/16/2025 Generated for Ashleigh garcía/Maty/Abbeitting on: 1 11:19 AM EDT
[2025-09-06 22:11] VITALS: PULSE 101; RESP 14; O2SAT 96
--- NOTE | 2025-09-06 22:11 | XR_ITS ---
The [place] [id number] Patient Name: BRIAN BARNARD MRN: [id number] date: 1950 Sex: M Assigned Patient Location: ED.MAIN Current Patient Location: ED.MAIN Accession/Order Number: [id number] Exam Date: 09/06/2025 22:15 Report Date: 09/06/2025 22:35 At the request of: GOLDEN AUGUSTINE DO Procedure: XR chest 1V PA CHEST: CLINICAL HISTORY: SOB COMPARISON: 05/30/2024 Unremarkable cardiomediastinal silhouette. Left lung is clear. Minimal hazy right lung base opacity. No effusion or pneumothorax. XR/XR chest 1V IMPRESSION: Hazy right lung base opacity. Follow-up to resolution recommended. Impression dictated by: Atul Locke M.D. 09/06/2025 10:35 PM Dictation Location: [place] [address] Electronically authenticated by: [id number] Y Date: 09/06/2025 22:35
[2025-09-06 22:12] VITALS: BP 134/77; PULSE 101; TEMP 36.7; O2SAT 93; BMI 26.6
--- NOTE | 2025-09-06 22:12 | ECG_ITS ---
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 Measurements Intervals [place] Rate: 123 P: -[id number] MD: 150 QRS: 50 QRSD: 90 T: 74 QT: 340 QTc: 413 Interpretive Statements SINUS TACHYCARDIA ARTIFACT IN LEAD(S) Poor R wave progression abnormal ECG Compared to ECG 05/28/2019 12:15:17 Sinus tachycardia still present Electronically Signed On 09-07-2025 5:48:57 EDT by JUSTIN NASH M.D.
[2025-09-06 22:14] VITALS: O2SAT 97
--- OUTSIDE RECORDS SUMMARY | 2025-09-06 22:20 | XMS_ITS | CCD ---
Author Organization [facility] Care Team Providers Care 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 Name Role Phone Radames Mart MD Primary [...] Admitting Unavailable MAIA, DR FIORE Consulting Unavailable MAIA, DR FIORE Primary Care Unavailable MISC, DR LAU Attending Unavailable Radames Mart MD Unavailable Radames Mart MD Primary Care Provider [phone] IRINA BOWMAN Attending Unavailable RADAMES MART Attending Unavailable RADAMES MART Attending Unavailable Mayda Castro Attending Unavailable RADAMES MART Primary Care Unavailable Mayda Castro Attending Unavailable RADAMES MART Primary Care Unavailable RADAMES MART Primary Care Unavailable Mayda Castro Attending Unavailable Allergies Allergy Classification Reported Allergen(s) Allergy Type Date of Onset Reaction(s) Facility (1 source) Theophylline Drug Allergy [facility] Other (1 source) Dust; Translations: [Dust] Propensity to adverse reactions (disorder) [facility] Repository Medications Current Medications Medication Drug Class(es) Dates Sig (Normalized) Sig (Original) 30 actuat aclidinium bromide 0.4 mg/actuat dry powder inhaler (4 sources) Start: 02-09-2024 Tudorza Pressair 400 MCG/ACT inhaler Indications: Centrilobular emphysema (CMS/HCC) INHALE 1 PUFF BY MOUTH TWICE DAILY. *Discard inhaler ONCE EMPTY OR 45 DAYS AFTER opening from sealed bag* 3 each 4 02/09/2024 Active take 1 puff(s) by mouth twice da konstantin aclidinium (TUDORZA PRESSAIR) 400 MCG/ACT AEPB inhaler INHALE 1 PUFF BY MOUTH 2 TIMES A DAY 0 Active take 1 puff(s) by inhalation at bedtime ACLIDINIUM BROMIDE IN Inhale 1 puff into the lungs in the morning and at bedtime 0 Active Aclidinium [place] 400 MCG/ACT (1 source) take 1 puff(s) by inhalation once daily Aclidinium [place] 400 MCG/ACT 1 puff Inhalation daily Active albuterol 0.83 mg/ml inhalation solution (4 sources) beta2-Adrenergic Agonist Start: albuterol (2.5 MG/3ML) 0.083% nebulizer solution Indications: Centrilobular emphysema (CMS/HCC) INHALE 1 VIAL VIA NEBULIZER EVERY 6 HOURS NEEDED FOR WHEEZE 75 mL 2 01/28/2025 Active take 2 puff(s) by in halation four times daily Albuterol Sulfate HFA 108 (90 Base) MCG/ACT 2 puffs Inhalation four times a day Active take 2 puff(s) by in halation every six hours as needed ALBUTEROL IN Inhale 2 puffs into the lungs every 6 hours PRN 0 Active albuterol 0.833 mg/ml / ipratropium bromide 0.167 mg/ml inhalation solution (1 source) Anticholinergic, beta2-Adrenergic Agonist Start: 02-07-2025 ipratropium-albuterol (Duo-Neb) 0.5-2.5 mg/3 mL nebulizer solution Indications: Centrilobular emphysema (HCC) Take 3 mL by nebulization 4 (four) times a day as needed for wheezing or shortness of breath 150 mL 5 02/07/2025 Active bicalutamide 50 mg oral tablet (1 source) Androgen Receptor Inhibitor take 1 tablet by mouth every twenty-four hours Bicalutamide 50 MG 1 tablet Orally Once a day Active 120 actuat budesonide 0.16 mg/actuat / formoterol fumarate 0.0045 mg/actuat metered dose inhaler (1 source) Corticosteroid, beta2-Adrenergic Agonist take 2 puff(s) by inhalation twice daily Budesonide-Formoterol Fumarate 160-4.5 MCG/ACT 2 puffs Inhalation Twice a day Active 120 actuat budesonide 0.16 mg/actuat / formoterol fumarate 0.0048 mg/actuat / glycopyrrolate 0.009 mg/actuat metered dose inhaler (1 source) Corticosteroid, beta2-Adrenergic Agonist Start: 02-07-2025 take 2 puff(s) by inhalation in the morning Sqhuhsg-Ipfnprdxivg-Kvi moterol (Breztri Aerosphere) 160-9-4.8 MCG/ACT aerosol Indications: Chronic obstructive pulmonary disease, unspecified COPD type (HCC) Inhale 2 puffs in the morning and 2 puffs before bedtime. 10.7 g 5 02/07/2025 Active calcium chloride 0.0014 meq/ml / potassium chloride 0.004 meq/ml / sodium chloride 0.103 meq/ml / sodium lactate 0.028 meq/ml injectable solution (1 source) Start: 05-04-2022 lactated ringers infusion Start: 05-04-2022 lactated ringe rs infusion clopidogrel 75 mg oral tablet (5 sources) P2Y12 Platelet Inhibitor clopidogrel (Plavix) 75 MG tablet 1 (one) time each day at the same time. Active doxazosin 2 mg oral tablet (4 sources) alpha-Adrenergic Alex Start: take 1 tablet by mouth at bedtime doxazosin (Cardura) 2 MG tablet Take 2 mg by mouth at bedtime 02/03/2024 Active Start: 05-02-2022 DOXAZOSIN MESY LATE PO take 1 tablet by shirlene th every twenty-four hours Doxazosin Mesylate 2 MG 1 tablet Orally Once a day Active ezetimibe 10 mg / simvastatin 40 mg oral tablet (2 sources) HMG-CoA Reductase Inhibitor, Dietary Cholesterol Absorption Inhibitor ezetimibe-simvastati n (Vytorin) 10-40 MG tablet 1 (one) time each day at the same time. Active 60 actuat fluticasone propionate 0.25 mg/actuat / salmeterol 0.05 mg/actuat dry powder inhaler (2 sources) Corticosteroid, beta2-Adrenergic Agonist take 1 puff(s) by inhalation every twelve hours fluticasone-salmeterol (ADVAIR) 250-50 MCG/ACT AEPB diskus inhaler Inhale 1 puff into the lungs every 12 hours 0 Active 10 ml lidocaine hydrochloride 10 mg/ml injection (1 source) Antiarrhythmic, Amide Local Anesthetic Start: 2021 End: 2021 lidocaine PF 1 % injection 1 mL linaclotide 0.145 mg oral capsule (2 sources) Guanylate Cyclase-C Agonist Start: 2023 take 1 capsule by mouth before mealtime linaCLOtide (Linzess) 145 MCG capsule Indications: Chronic idiopathic constipation Take 1 capsule (145 mcg) by mouth in the morning. Take before meals. Do not crush or chew.. 30 capsule 11 01/24/2024 Active Linzess PRN Acti ve mirtazapine 30 mg oral tablet (6 sources) Start: 06-21-2023 take 1 tablet by mouth at bedtime mirtazapine (Remeron) 30 MG tablet Indications: Insomnia due to medical condition 1 tablet Orally at bedtime 90 tablet 3 06/21/2023 Active take 1 tablet by shirlene th every twenty-four hours Mirtazapine 30 MG 1 tablet at bedtime Orally Once a day Active mirtazapine (REM JAYNA) 15 MG tablet 1 tablet 0 Active take 1 tablet by mouth once raya y mirtazapine (REMERON JESSE-TAB) 30 MG disintegrating tablet Take 30 mg by mouth nightly 0 Active omeprazole 20 mg delayed release oral tablet (5 sources) Proton Pump Inhibitor Start: 02-03-2024 take 1 tablet by mouth before mealtime omeprazole OTC (PriLOSEC OTC) 20 MG EC tablet Take 20 mg by mouth in the morning. Take before meals. 02/03/2024 Active take 1 capsule by mouth once mavis ly PriLOSEC 20 MG 1 capsule Orally Once a day for 30 day(s) Active Oxygen (2 sources) oxygen (O2) gas Inhale 2 L/min continuously. Active Oxygen 2 liters (1 source) Oxygen 2 liters Active prazosin 5 mg oral capsule (1 source) alpha-Adrenergic Alex take 1 capsule by mouth at bedtime prazosin (Minipress) 5 MG capsule Take 5 mg by mouth at bedtime Active Respiratory Therapy Supplies (Nebulizer/Tubing/Mo uthpiece) kit (1 source) Start: 5 Respiratory Therapy Supplies (Nebulizer/Tubing/Mout hpiece) kit Indications: Centrilobular emphysema (HCC) 1 kit Daily 1 kit 03/25/2025 Active simvastatin 40 mg oral tablet (3 sources) HMG-CoA Reductase Inhibitor take 1 tablet by mouth once daily in the evening Simvastatin 40 MG 1 tablet in the evening Orally Once a day Active 5 ml sodium chloride 9 mg/ml injection (3 sources) Start: 2 0.9 % sodium chloride infusion Start: 05-03-2022 sodium chlorid e flush 0.9 % injection 5-40 mL triamcinolone acetonide 0.055 mg/actuat metered dose nasal spray (2 sources) Corticosteroid triamcinolone (Nasacort Allergy 24HR) 55 MCG/ACT nasal inhaler 1 (one) time each day at the same time. Active Wixela Inhub 500-50 MCG/DOSE (1 source) Start: 9 take 1 puff(s) by inhalation twice daily Wixela Inhub 500-50 MCG/DOSE 1 puff Inhalation Twice a day for 30 days Apr, Active Problems Active Problems Problem Classification Problem Date Documented Da te Episodic/Chronic Anxiety disorders (4 sources) Anxiety; Translations: [Anxiety disorder, unspecified] Onset: 3 06-15-2023 Chronic Cancer of prostate (7 sources) Malignant neoplasm of prostate; Translations: [Malignant tumor of prostate] Onset: 3 Chronic Cataract (2 sources) Bilateral age-related nuclear cataracts; Translations: [Age-related nuclear cataract, bilateral] Onset: 4 03-29-2024 Chronic Chronic obstructive pulmonary disease and bronchiectasis (5 sources) Emphysema; Translations: [Emphysema, unspecified] Onset: 3 06-15-2023 Chronic Coronary atherosclerosis and other heart disease (2 sources) Coronary atherosclerosis; Translations: [Atherosclerotic heart disease of [place] coronary artery without angina pectoris] Onset: 3 06-15-2023 Chronic Disorders of lipid metabolism (4 sources) Pure hypercholesterolemia; Translations: [Pure hypercholesterolemia, unspecified] Onset: 3 06-15-2023 Chronic Esophageal disorders (2 sources) Gastroesophageal reflux disease; Translations: [Gastro-esophageal reflux disease without esophagitis] Onset: 3 06-15-2023 Chronic Hyperplasia of prostate (1 source) Benign prostatic hyperplasia with lower urinary tract symptoms; Translations: [Benign prostatic hyperplasia with lower urinary tract symptoms] Onset: 5 Chronic Immunizations and screening for infectious disease (1 source) Contact with and (suspected) exposure to tuberculosis; Translations: [Exposure to tuberculosis (event)] Episodic Mood disorders (2 sources) Major depressive disorder; Translations: [Major depressive disorder, single episode, unspecified] Onset: 4 03-29-2024 Chronic Other connective tissue disease (2 sources) Cramp in lower limb; Translations: [Sleep related leg cramps] Onset: 3 06-15-2023 Chronic Other diseases of kidney and ureters (1 source) Other obstructive and reflux uropathy; Translations: [Other obstructive and reflux uropathy] Onset: 5 Episodic Other gastrointestinal disorders (1 source) Flatulence, eructation and gas pain; Translations: [Abdominal distension (gaseous)] Episodic Other gastrointestinal disorders (1 source) Abdominal distension (gaseous) Episodic Other gastrointestinal disorders (1 source) Constipation, unspecified Episodic Other lower respiratory disease (1 source) Multiple nodules of lung; Translations: [Other nonspecific abnormal finding of lung field] Episodic Peripheral and visceral atherosclerosis (2 sources) Peripheral vascular disease; Translations: [Peripheral vascular disease, unspecified] Onset: 3 06-15-2023 Chronic Respiratory failure; insufficiency; arrest (adult) (2 sources) Dependence on supplemental oxygen; Translations: [Dependence on supplemental oxygen] Onset: 3 06-15-2023 Chronic Past or Other Problems Problem Classification Problem Date Documented Da te Episodic/Chronic Other and unspecified benign neoplasm (2 sources) History of polyp of colon; Translations: [History of colonic polyps] Onset: 02-26-2022 06-28-2023 Episodic Other connective tissue disease (2 sources) Cramp in lower leg associated with rest; Translations: [Cramp and spasm] Onset: 06-27-2018 06-28-2023 Episodic Other gastrointestinal disorders (3 sources) Constipation; Translations: [Constipation, unspecified] Onset: 06-15-2023 06-15-2023 Episodic Other lower respiratory disease (2 sources) Nodule of lung; Translations: [Solitary pulmonary nodule] Onset: 06-15-2023 06-15-2023 Episodic Other screening for suspected conditions (not mental disorders or infectious disease) (3 sources) Raised prostate specific antigen; Translations: [Elevated prostate specific antigen [PSA]] Onset: 06-15-2023 Episodic Residual codes; unclassified (1 source) Contact with and (suspected) exposure to other hazardous substances; Translations: [Contact with and (suspected) exposure to other potentially hazardous substances] Onset: 02-07-2025 02-07-2025 Episodic Results Test Name Value Interpretation Reference Range Facility Lab - Other Lab [facility] Lab - Other Lab Results [id number] [facility] BODYon 022 [place] [facility] BODY EXAMINATION: [place] [facility] BODY HISTORY: Primary malignant neoplasm of prostate COMPARISON: No relevant comparison available. TECHNIQUE: After obtaining the patient's consent, 25.5 mCi Technetium 99m MDP was injected intravenously. Images were obtained approximately two hours later. FINDINGS: ABNORMALITIES: No abnormal or suspicious radiotracer accumulation. OTHER: Negative. IMPRESSION: 1. No evidence of skeletal metastasis. Electronically authenticated by: BLAYNE YOUNG Date: 2022-07-26 14:47 Normal [facility] Surgical Pathologyon 022 Surgical Pathology (NOTE) -- [...] THE ADENOCARCINOMA IN THE INVOLVED BIOPSIES. FOR INCIDENT RESPONSE COORDINATOR THE SLIDES OF SPECIMEN B WERE REVIEWED BY A SECOND PATHOLOGIST (FERNANDO). * THIS TEST WAS DEVELOPED AND ITS PERFORMANCE CHARACTERISTICS DETERMINED BY [facility] ANATOMIC PATHOLOGY. IT HAS NOT BEEN CLEARED [...] Name: BRIAN QUEZADA [facility] Rec: [id number] Path Number: [id number] [facility] ANATOMIC PATHOLOGY [address] [place] [id number] Normal [facility] Comment on above: Performed By: #### P PPVS #### [employer] [address] [place] [id number] Proofing Machine Operator: Brady Wilkes MD EKG 12 LeadOrdered By: Ney Ferrara on 04-24-2022 Atrial Rate 91 BPM KATHLEEN O-COD[employer] Work Phone: P [place] 88 degrees KATHLEEN O-CODES Work Phone: P-R Interval 158 ms [employer] Work Phone: Q-T Interval 334 ms [employer] Work Phone: QRS Duration 90 ms KATHLEEN O-CODES Work Phone: QTc Calculation (Bazett) 410 ms [employer] Work Phone: R [place] 42 degrees KATHLEEN O-CODES Work Phone: T [place] 81 degrees [employer] Work Phone: Ventricular Rate 91 BPM KATHLEEN EDANGlo [employer] Work Phone: [employer] Work Phone: EKG 12 Leadon 04-24-2022 Normal sinus rhythm Low voltage QRS Borderline ECG No previous ECGs available [facility] Ney Quezada MD - 04/24/2022 Normal sinus rhythm Low voltage QRS Borderline ECG No previous ECGs available [employer] Work Phone: BUN & Creatinineon 2 Creatinine [Mass/Vol] 0.93 mg/dL 0.70 - 1.20 mg/dL [employer] GFR >60 >60 mL/min [employer] GFR Non- >60 >60 mL/min [employer] GFR/1.73 sq M.predicted MDRD (S/P/Bld) [Vol rate/Area] [employer] Comment on above: Average GFR for 60-6 9 years old: 85 mL/min/1.73sq m Chronic Kidney Disease: <60 mL/min/1.73sq m Kidney failure: <15 mL/min/1.73sq m eGFR calculated using average adult body mass. Additional eGFR calculator available at: http://www.[employer]/multiple_crcl_2012.htm Urea nitrogen (BldV) [Mass/Vol] 10 mg/dL 8 - 23 mg/dL [facility] BUN + Creatinineon 2 (cont.) Normal [facility] Comment on above: Result Comment: Aver age GFR for 60-69 years old: 85 mL/min/1.73sq m Chronic Kidney Disease: <60 mL/min/1.73sq m Kidney failure: <15 mL/min/1.73sq m eGFR calculated using average adult body mass. Additional eGFR calculator available at: http://www.[employer]/multiple_crcl_2011.htm Performed By: #### C BC, BUNCRT, LYTE #### [facility] [address] [facility] [place] [address] Proofing Machine Operator: Jean-Pierre Gallardo MD Creatinine [Mass/Vol] 0.93 mg/dL Normal 0.70-1.20 [facility] Comment on above: Performed By: #### C BC, BUNCRT, LYTE #### [facility] [address] [facility] [place] [address] Proofing Machine Operator: Jean-Pierre Gallardo MD GFR, Amer >60 Normal >60 [facility] Comment on above: Performed By: #### C BC, BUNCRT, LYTE #### [facility] [address] [facility] [place] [address] Proofing Machine Operator: Jean-Pierre Gallardo MD GFR,non Amer >60 Normal >60 [facility] Comment on above: Performed By: #### C BC, BUNCRT, LYTE #### [facility] [address] [facility] [place] [address] Proofing Machine Operator: Jean-Pierre Gallardo MD Urea nitrogen [Mass/Vol] 10 mg/dL Normal 8-23 [facility] Comment on above: Performed By: #### C BC, BUNCRT, LYTE #### [facility] [address] [place] [address] Proofing Machine Operator: Jean-Pierre Gallardo MD CBCon 04-23-2022 Erythrocyte distribution width (RBC) [Ratio] 11.9 % Normal 11.8-14.4 [facility] Comment on above: Performed By: #### C NICK BUNCRT, LYTE #### [facility] [address] [place] [address] Proofing Machine Operator: Jean-Pierre Gallardo MD Hematocrit (Bld) [Volume fraction] 45.0 % Normal 40.7-50.3 [facility] Comment on above: Performed By: #### Allan ROMERO BUNCRT, LYTE #### [facility] [facility] [place] [address] Proofing Machine Operator: Jean-Pierre Gallardo MD Hemoglobin (Bld) [Mass/Vol] 14.1 g/dL Normal 13.0-17.0 [facility] Comment on above: Performed By: #### Allan ROMERO BUNCRT, LYTE #### [facility] [address] [place], [place] [address] [facility] [place] [address] Proofing Machine Operator: Jean-Pierre Gallardo MD MCH (RBC) [Entitic mass] 30.5 pg Normal 25.2-33.5 [facility] Comment on above: Performed By: #### Allan ROMERO BUNCRT, LYTE #### [facility] [place] [address] Proofing Machine Operator: Jean-Pierre Gallardo MD MCHC (RBC) [Mass/Vol] 31.3 g/dL Normal 28.4-34.8 [facility] Comment on above: Performed By: #### C NICK BUNCRT, LYTE #### [facility] [place] [address] Proofing Machine Operator: Jean-Pierre Gallardo MD MCV (RBC) [Entitic vol] 97.4 fL Normal 82.6-102.9 [facility] Comment on above: Performed By: #### C TONY ROMERO, LYTE #### [facility] [facility] [place] [address] Proofing Machine Operator: Jean-Pierre Gallardo MD NRBC Automated 0.0 per 100 WBC Normal 0.0 [facility] Comment on above: Performed By: #### C NICK BUNCRT, LYTE #### [facility] [address] [place] [address] Proofing Machine Operator: Jean-Pierre Gallardo MD Platelet mean volume (Bld) [Entitic vol] 9.9 fL Normal 8.1-13.5 [facility] Comment on above: Performed By: #### TONY HART, LYTE #### [facility] [address] [place] [address]. [place] [address] Proofing Machine Operator: Jean-Pierre Gallardo MD Platelets (Bld) [#/Vol] 162 10*3/uL Normal 138-453 [facility] Comment on above: Performed By: #### TONY HART, LYTE #### [facility] [address] [place] [address] Proofing Machine Operator: Jean-Pierre Gallardo MD RBC (Bld) [#/Vol] 4.62 10*6/uL Normal 4.21-5.77 [facility] Comment on above: Performed By: #### Allan ROMERO BUNCRT, LYTE #### [facility] [address] [place] [address]. [place] [address] Proofing Machine Operator: Jean-Pierre Gallardo MD WBC (Bld) [#/Vol] 9.2 10*3/uL Normal 3.5-11.3 [facility] Comment on above: Performed By: #### YOGI HARTCRT, LYTE #### [facility] [address] [place], [place] [id number] Proofing Machine Operator: Jean-Pierre Gallardo MD Hematocrit (Bld) [Volume fraction] 45.0 % 40.7 - 50.3 % [facility] Hemoglobin.gastrointes tinal spec 1 Ql (Stl) 14.1 g/dL 13.0 - 17.0 g/dL [facility] MCH (RBC) [Entitic mass] 30.5 pg 25.2 - 33.5 pg [facility] MCHC (RBC) [Mass/Vol] 31.3 g/dL 28.4 - 34.8 g/dL [facility] MCV (RBC) [Entitic vol] 97.4 fL 82.6 - 102.9 fL [facility] NRBC Automated 0.0 0.0 per 100 WBC [facility] Platelet distribution width (Bld) [Ratio] 11.9 % 11.8 - 14.4 % [facility] Platelet mean volume (Bld) [Entitic vol] 9.9 fL 8.1 - 13.5 fL [facility] Platelets (Bld) [#/Vol] 162 10*3/uL [facility] RBC (Bld) [#/Vol] 4.62 10*6/uL 4.21 - 5.7 7 m/uL [facility] WBC (Bld) [#/Vol] 9.2 10*3/uL [facility] Electrolyte Panelon 04-23-20 22 Anion gap [Moles/Vol] 6 mmol/L Low 9 - 17 mmol/L [facility] Chloride [Moles/Vol] 101 mmol/L 98 - 10 7 mmol/L [facility] CO2 [Moles/Vol] 35 mmol/L High 20 - 31 mmol/L [facility] Interpretation and review of laboratory results Abnormal [facility] Potassium [Moles/Vol] 4.6 mmol/L 3.7 - 5.3 mmol/L [facility] Sodium [Moles/Vol] 142 mmol/L 135 - 144 mmol/L [facility] Electrolyteson 04-23-2022 Anion gap [Moles/Vol] 6 mmol/L Low 9-17 [facility] Comment on above: Performed By: #### C TONY ROMERO, LYTE #### [facility] [address] [place] [address] Proofing Machine Operator: Jean-Pierre Gallardo MD Chloride [Moles/Vol] 101 mmol/L Normal 98-107 [facility] Comment on above: Performed By: #### C NICK BUNCRT, LYTE #### [facility] [address] [place] [address] Proofing Machine Operator: Jean-Pierre Gallardo MD CO2 [Moles/Vol] 35 mmol/L High 20-31 [facility] Comment on above: Performed By: #### TONY HART, LYTE #### [facility] [address] [place] [address] Proofing Machine Operator: Jean-Pierre Gallardo MD Potassium [Moles/Vol] 4.6 mmol/L Normal 3.7-5.3 [facility] Comment on above: Performed By: #### Allan ROMERO BUNCRT, LYTE #### [facility] [address] [place] [address] Proofing Machine Operator: Jean-Pierre Gallardo MD Sodium [Moles/Vol] 142 mmol/L Normal 135-144 [facility] Comment on above: Performed By: #### Allan ROMERO BUNCRT, LYTE #### [facility] [address] [place] [address] Proofing Machine Operator: Jean-Pierre Gallardo MD No Panel Informationon 04-23 [facility] Chronic pulmonary change without acute cardiopulmonary process. [facility] RIS CONSOLIDATED EXAMINATION: TWO XRAY VIEWS OF THE CHEST 04/23/2022 9:14 am COMPARISON: None. HISTORY: ORDERING SYSTEM PROVIDED HISTORY: pre-op TECHNOLOGIST PROVIDED HISTORY: Pt in [facility] pre-op Reason for Exam: Pre op prostate surg, May 03, 2022. COPD FINDINGS: There is chronic pulmonary change. There is no acute consolidation or effusion. There is no pneumothorax. The mediastinal structures are unremarkable. The upper abdomen unremarkable. The extrathoracic soft tissues are unremarkable. [facility] Frank Farrar MD - 04/23/2022 EXAMINATION: TWO XRAY VIEWS OF THE CHEST 04/23/2022 9:14 am COMPARISON: None. HISTORY: ORDERING SYSTEM PROVIDED HISTORY: pre-op TECHNOLOGIST PROVIDED HISTORY: Pt in [facility] pre-op Reason for Exam: Pre op prostate surg, May 03, 2022. COPD FINDINGS: There is chronic pulmonary change. There is no acute consolidation or effusion. There is no pneumothorax. The mediastinal structures are unremarkable. The upper abdomen unremarkable. The extrathoracic soft tissues are unremarkable. IMPRESSION: Chronic pulmonary change without acute cardiopulmonary process. [employer] Phone: Radiology Study observation (narrative) [employer] Phone: No Panel InformationOrdered By: Frank Roque on 04-23-2022 [employer] Phone: XR CHEST (2 VW)on 04-23-2022 XR CHEST (2 VW) EXAMINATION: TWO XRAY VIEWS OF THE CHEST 04/23/2022 9:14 am COMPARISON: None. HISTORY: ORDERING SYSTEM PROVIDED HISTORY: pre-op TECHNOLOGIST PROVIDED HISTORY: Pt in [facility] pre-op Reason for Exam: Pre op prostate [...] Frank Roque MD 04/23/22 Final result Normal [facility] Q - PSA (FREE AND TOTAL)on 0 02-02-2022 PSA, % FREE 13 % (calc) Low >25 [facility] Investigator Internal Revenue Comment on above: Order Comment: [facility] Testing performed at: [facility], [facility], [address], [address] [facility], [place], [address], Stock Dealer: Fermín Aj MD [facility] Collection Date/Time: [facility] Results Received Date/Time: [facility] Reported Date/Time: Result Comment: PSA(ng/mL) Free PSA(%) Estimated(x) Probability of Cancer(as%) 0-2.5 (*) Approx. 1 2.6-4.0(1) 0-27(2) 24(3) 4.1-10(4) 0-10 56 11-15 28 16-20 20 21-25 16 >or =26 8 >10(+) N/A >50 References:(1)Kevin et al.:Urology 60: 469-474 (2001) (2)Kevin et al.:J.Urol 168: 922-925 (2001) Free PSA(%) Sensitivity(%) Specificity(%) < or = 25 85 19 < or = 30 93 9 (3)Catalona et al.:PAVAN 277: 5292-2945 (1996) (4)Catalona et al.:PAVAN 279: 3498-1925 (1997) (x)These estimates vary with age, ethnicity, [...] mind. PSA was performed using the Jett Harts Immunoassay method. Values obtained from different assay methods cannot be used interchangeably. PSA levels, regardless of value, should not be interpreted as absolute evidence of the presence or absence of disease. Performed By: #### 3 [id number] #### [facility] Default [address] [place] [address] PSA, FREE 0.9 ng/mL Normal [facility] Investigator Internal Revenue Comment on above: Order Comment: [facility] Testing performed at: [facility], [employer] [facility], [address], [address] [place] [address], [id number], Stock Dealer: Fermín Aj MD [facility] Collection Date/Time: [facility] Results Received Date/Time: [facility] Reported Date/Time: Performed By: #### 3 [id number] #### [facility] Default [address] [place] [address] PSA, TOTAL 7.0 ng/mL High < OR = 4.0 [facility] Investigator Internal Revenue Comment on above: Order Comment: [facility] Testing performed at: [facility], [facility], [address] , [address] [place] [address], [phone], Stock Dealer: Fermín Aj MD [facility] Collection Date/Time: [facility] Results Received Date/Time: [facility] Reported Date/Time: Performed By: #### 3 [id number] #### [facility] Default [address] [place] [address] Complete Blood Count with Au to Diffon 01-25-2022 Basophils (Bld) [#/Vol] 0.07 10*3/uL Normal 0.00-0.20 [facility] Investigator Internal Revenue Comment on above: Performed By: #### C BCAD, CMP, LIPD #### [facility] [address] [place] [id number] Basophils/100 WBC (Bld) 1.0 % Normal [facility] Investigator Internal Revenue Comment on above: Performed By: #### C BCAD, CMP, LIPD #### [facility] [address] [place], [place] [id number] Eosinophils (Bld) [#/Vol] 0.23 10*3/uL Normal 0.02-0.50 [facility] Investigator Internal Revenue Comment on above: Performed By: #### C BCAD, CMP, LIPD #### [facility] [address] [place] [id number] Eosinophils/100 WBC (Bld) 3.2 % Normal [facility] Investigator Internal Revenue Comment on above: Performed By: #### C BCAD, CMP, LIPD #### [facility] [address] [place], [place] [id number] Erythrocyte distribution width (RBC) [Ratio] 11.9 % Normal 11.0-15.0 [facility] Comment on above: Performed By: #### C BCAD, CMP, LIPD #### [facility] [address] [place], [place] [id number] Hematocrit (Bld) [Volume fraction] 43.2 % Normal 38.5-50.0 [facility] Comment on above: Performed By: #### C BCAD, CMP, LIPD #### [facility] [address] [place], [place] [id number] Hemoglobin (Bld) [Mass/Vol] 14.3 g/dL Normal 13.0-17.1 [facility] Specialist Comment on above: Performed By: #### C BCAD, CMP, LIPD #### [facility] [address] [place], [place] [id number] Lymphocytes (Bld) [#/Vol] 2.0 10*3/uL Normal 0.9-3.9 [facility] Comment on above: Performed By: #### C BCAD, CMP, LIPD #### [facility] [address] [place], [place] [id number] Lymphocytes/100 WBC (Bld) 28.0 % Normal [facility] Comment on above: Performed By: #### C BCAD, CMP, LIPD #### [facility] [address] [place], [place] [id number] MCH (RBC) [Entitic mass] 31.0 pg Normal 27.0-33.0 [facility] Specialist Comment on above: Performed By: #### C BCAD, CMP, LIPD #### [facility] [address] [place], [place] [id number] MCHC (RBC) [Mass/Vol] 33.1 g/dL Normal 32.0-36.0 [facility] Comment on above: Performed By: #### C BCAD, CMP, LIPD #### [facility] [address] [place], [place] [id number] MCV (RBC) [Entitic vol] 94 fL Normal 80-100 [facility] Specialist Comment on above: Performed By: #### C BCAD, CMP, LIPD #### [facility] [address] [place], [place] [id number] Monocytes (Bld) [#/Vol] 0.7 10*3/uL Normal 0.2-0.9 [facility] Specialist Comment on above: Performed By: #### C BCAD, CMP, LIPD #### [facility] [address] [place], [place] [id number] Monocytes/100 WBC (Bld) 9.3 % Normal [facility] Specialist Comment on above: Performed By: #### C BCAD, CMP, LIPD #### [facility] [address] [place], [place] [id number] Neutrophils (Bld) [#/Vol] 4.2 10*3/uL Normal 1.5-7.8 [facility] Specialist Comment on above: Performed By: #### C BCAD, CMP, LIPD #### [facility] [address] [place], [place] [id number] Neutrophils/100 WBC (Bld) 58.4 % Normal [facility] Specialist Comment on above: Performed By: #### C BCAD, CMP, LIPD #### [facility] [address] [place], [place] [id number] Platelet mean volume (Bld) [Entitic vol] 10.20 fL Normal 7.50-12.50 [facility] Comment on above: Performed By: #### C BCAD, CMP, LIPD #### [facility] [address] [place], [place] [id number] Platelets (Bld) [#/Vol] 151 10*3/uL Normal 140-400 [facility] Specialist Comment on above: Performed By: #### C BCAD, CMP, LIPD #### [facility] [address] [place], [place] [id number] RBC (Bld) [#/Vol] 4.61 10*6/uL Normal 4.20-5.80 [facility] Specialist Comment on above: Performed By: #### C BCAD, CMP, LIPD #### [facility] [address] [place], [place] [id number] RDW-SD 41.6 fL Normal 37.0-50.0 [facility] Specialist Comment on above: Performed By: #### C BCAD, CMP, LIPD #### [facility] [address] [place], [place] [id number] WBC (Bld) [#/Vol] 7.2 10*3/uL Normal 3.8-11.0 [place] Investigator Internal Revenue Comment on above: Performed By: #### C BCAD, CMP, LIPD #### [facility] [address] [place], [place] [id number] Comprehensive Metabolic Pane champ 01-25-2022 Albumin [Mass/Vol] 4.5 g/dL Normal 3.6-5.1 [place] Investigator Internal Revenue Comment on above: Performed By: #### C BCAD, CMP, LIPD #### [facility] [address] [place], [place] [id number] Albumin/Globulin [Mass ratio] 2.0 {ratio} Normal 1.0-2.5 [facility] Investigator Internal Revenue Comment on above: Performed By: #### C BCAD, CMP, LIPD #### [facility] [address] [place], [place] [id number] ALP [Catalytic activity/Vol] 78 U/L Normal 40-129 [facility] Specialist Comment on above: Performed By: #### C BCAD, CMP, LIPD #### [facility] [address] [place], [place] [id number] ALT [Catalytic activity/Vol] 17 U/L Normal 9-46 [facility] Specialist Comment on above: Result Comment: 10/28 Female reference range changed. Performed By: #### C BCAD, CMP, LIPD #### [facility] [address] [place], [place] [id number] Anion gap [Moles/Vol] 15 mmol/L Normal 12-20 [facility] Specialist Comment on above: Result Comment: Effe ctive 12/03/2019 reference range changed. Performed By: #### C BCAD, CMP, LIPD #### [facility] [address] [place], [place] [id number] AST [Catalytic activity/Vol] 20 U/L Normal 10-40 [facility] Comment on above: Performed By: #### C BCAD, CMP, LIPD #### [facility] [address] [place], [place] [id number] Bilirubin [Mass/Vol] 0.53 mg/dL Normal 0.30-1.20 [facility] Comment on above: Performed By: #### C BCAD, CMP, LIPD #### [facility] [address] [place], [place] [id number] BUN/CREA 11 Ratio Normal 6-22 [facility] Comment on above: Performed By: #### C BCAD, CMP, LIPD #### [facility] [address] [place], [place] [id number] Calcium [Mass/Vol] 10.0 mg/dL Normal 8.6-10.2 [facility] Comment on above: Performed By: #### C BCAD, CMP, LIPD #### [facility] [address] [place], [place] [id number] Chloride [Moles/Vol] 103 mmol/L Normal 98-107 [facility] Comment on above: Performed By: #### C BCAD, CMP, LIPD #### [facility] [address] [place], [place] [id number] CO2 [Moles/Vol] 30 mmol/L Normal 20-31 [facility] Comment on above: Performed By: #### C BCAD, CMP, LIPD #### [facility] [address] [place], [place] [id number] Creatinine [Mass/Vol] 1.1 mg/dL Normal 0.7-1.4 [facility] Comment on above: Performed By: #### C BCAD, CMP, LIPD #### [facility] [address] [place], [place] [id number] eGFRAA 81 mL/min/1.73m2 Normal >60 [facility] Comment on above: Performed By: #### C BCAD, CMP, LIPD #### [facility] [address] [place], [place] [id number] eGFRNAA 67 mL/min/1.73m2 Normal >60 [place] Investigator Internal Revenue Comment on above: Performed By: #### C BCAD, CMP, LIPD #### [facility] [address] [place], [place] [id number] Globulin (S) [Mass/Vol] 2.3 g/dL Normal 1.9-3.7 [facility] Investigator Internal Revenue Comment on above: Performed By: #### C BCAD, CMP, LIPD #### [facility] [address] [place], [place] [id number] Glucose [Mass/Vol] 96 mg/dL Normal 65-99 [place] Investigator Internal Revenue Comment on above: Result Comment: For FASTING Glucose --- ADA reference ranges: Normal 65-99 mg/dl Prediabetes 100-125 Diabetes >/= 126 Performed By: #### C BCAD, CMP, LIPD #### [facility] [address] [place], [place] [id number] Potassium [Moles/Vol] 4.3 mmol/L Normal 3.5-5.5 [facility] Specialist Comment on above: Performed By: #### C BCAD, CMP, LIPD #### [facility] [address] [place], [place] [id number] Protein [Mass/Vol] 6.8 g/dL Normal 6.1-8.1 [place] Investigator Internal Revenue Comment on above: Performed By: #### C BCAD, CMP, LIPD #### [facility] [address] [place], [place] [id number] Sodium [Moles/Vol] 143 mmol/L Normal 135-146 [place] Investigator Internal Revenue Comment on above: Performed By: #### C BCAD, CMP, LIPD #### [facility] [address] [place], [place] [id number] Urea nitrogen [Mass/Vol] 12 mg/dL Normal 7-25 [facility] Investigator Internal Revenue Comment on above: Performed By: #### C BCAD, CMP, LIPD #### [facility] [address] [place], [place] [id number] Lipid Panelon 01-25-2022 Cholesterol [Mass/Vol] 162 mg/dL Normal 125-200 No [facility] Investigator Internal Revenue Comment on above: Result Comment: Low risk < 200mg/dL Borderline risk 201-239 mg/dl High risk > or equal to 240 Performed By: #### C BCAD, CMP, LIPD #### [facility] [address] [place], [place] [id number] Cholesterol in HDL [Mass/Vol] 59 mg/dL Normal >40 [facility] Specialist Comment on above: Result Comment: High Cardiovascular Risk HDL <40 mg/dL Low Cardiovascular Risk HDL > or equal to 60 mg/dl Performed By: #### C BCAD, CMP, LIPD #### [facility] [address] [place], [place] [id number] Cholesterol in LDL [Mass/Vol] 79 mg/dL Normal [facility] Specialist Comment on above: Result Comment: LDL ATP III CLASSIFICATION LDL less than 100 mg/dl Optimal LDL 100-129 mg/dl Near or above optimal LDL 130-159 Borderline high LDL 160-189 High LDL greater than 189 mg/dl Very High Performed By: #### C BCAD, CMP, LIPD #### [facility] [address] [place], [place] [id number] Cholesterol in VLDL [Mass/Vol] 24 mg/dL Normal [facility] Investigator Internal Revenue Comment on above: Performed By: #### C BCAD, CMP, LIPD #### [facility] [address] [place], [place] [id number] Cholesterol.total/Chol esterol in HDL [Mass ratio] 3 {ratio} Normal [facility] Specialist Comment on above: Performed By: #### C BCAD, CMP, LIPD #### [facility] [address] [place], [place] [id number] Triglyceride [Mass/Vol] 121 mg/dL Normal 30-150 [facility] Investigator Internal Revenue Comment on above: Result Comment: TRIG ATPIII CLASSIFICATIONS TRIG less than 150 mg/dl Normal TRIG 150-199 mg/dl Borderline High TRIG 200-500 mg/dl High TRIG greather than 500 mg/dl Very High Performed By: #### C BCAD, CMP, LIPD #### [facility] [address] [place], [place] [id number] PSA SCREEN (MEDICARE)on 12-30 TPSA 5.940 ng/mL High <4.000 [facility] Investigator Internal Revenue Comment on above: Result Comment: PSA Test Method: ECLIA/Gilberto e 601 Performed By: #### P #### [facility] [address] [facility] [place] [id number] Vital Signs Date Time Vital Sign Value Performing Clinician Facility 08-24-2022 10:30-0400 Body height 177.8 cm Orlando Reedgloria Other [facility] Other 08-24-2022 10:30-0400 Body mass index (BMI) [Ratio] 22.67 kg/m2 Orlando Reedgloria Other [facility] Other 08-24-2022 10:30-0400 Body weight 71.67 kg Orlando Valencia Other [facility] Other 08-24-2022 10:30-0400 Diastolic blood pressure 86 mm[Hg] Orlando Dittgloria Other [facility] Other 08-24-2022 10:30-0400 Systolic blood pressure 118 mm[Hg] Orlando Reedgloria Other [facility] Other 05-03-2022 12:15-0400 Body temperature 98.2 [degF] Mayda Castro MD Work Phone: [facility] 05-03-2022 12:15-0400 Diastolic blood pressure 89 mm[Hg] Mayda Castro MD Work Phone: [facility] 05-03-2022 12:15-0400 Heart rate 77 /min Mayda Castro MD Work Phone: [facility] 05-03-2022 12:15-0400 Respiratory rate 15 /min Mayda Castro MD Work Phone: [facility] 05-03-2022 12:15-0400 SaO2% (BldA) [Mass fraction] 98 % Mayda Castro MD Work Phone: [facility] 05-03-2022 12:15-0400 Systolic blood pressure 115 mm[Hg] Mayda Castro MD Work Phone: [facility] 05-03-2022 10:06-0400 Body height 177.8 cm Mayda Castro MD Work Phone: [facility] 05-03-2022 10:06-0400 Body mass index (BMI) [Ratio] 22.96 kg/m2 Mayda Castro MD Work Phone: [facility] 05-03-2022 10:06-0400 Body weight 72.58 kg Mayda Castro MD [facility] Phone: [facility] 04-23-2022 08:05-0400 SaO2% (BldA) [Mass fraction] 95 % Sta 1 [facility] 04-23-2022 08:02-0400 Body height 177.8 cm Sta 1 [facility] [email or web address] 04-23-2022 08:02-0400 Body mass index (BMI) [Ratio] 22.96 kg/m2 Sta 1 [facility] 04-23-2022 08:02-0400 Body temperature 97.7 [degF] Sta [facility] 04-23-2022 08:02-0400 Body weight 72.58 kg Sta 1 [email or web address] 04-23-2022 08:02-0400 Diastolic blood pressure 68 mm[Hg] Sta 1 [facility] 04-23-2022 08:02-0400 Heart rate 100 /min Sta 1 [facility] [email or web address] 04-23-2022 08:02-0400 Respiratory rate 24 /min Sta 1 [facility] [employer] 04-23-2022 08:02-0400 Systolic blood pressure 132 mm[Hg] Sta 1 [facility] Encounters Encounter Date Encounter Type Care Provider Facility Start: 08-01-2025 End: 08-01-2025 ambulatory Mayda Castro Facility: [facility] Start: 07-23-2025 ambulatory Mayda Castro Facility [facility] Start: 07-16-2025 End: 07-16-2025 ambulatory RADAMES MART Facility:[facility] Start: 05-13-2025 End: 05-29-2025 Telephone encounter Radames Mart MD Work Phone: [facility] Start: 02-07-2025 End: 02-07-2025 Bamboo flowsheet Irina Bowman PA Work Phone: [facility] Start: 02-07-2025 End: 02-07-2025 Bamboo flowsheet Irina Bowman PA Work Phone: [facility] Start: 02-07-2025 End: 02-07-2025 ambulatory IRINA BOWMAN Not Available Start: 06-04-2024 End: 06-04-2024 ambulatory RADAMES MART Not Available Start: 05-23-2024 End: 05-23-2024 ambulatory RADAMES MART Not Available Start: 04-04-2023 End: 04-05-[address] DOCTOR GARZON Facility:[facility] Start: 02-05-2023 End: 02-06-[address] DOCTOR GARZON Facility:[facility] Start: 08-24-2022 End: 08-24-2022 ambulatory Orlando Valencia Other [place] [facility] Other Start: 08-24-2022 [facility] visit new patient Orlando Valencia [facility] Start: 08-04-2022 End: 08-05-[address] DOCTOR GARZON Facility:[facility] Start: 07-26-2022 End: 07-27-[address] RADAMES MART Facility:[facility] Start: 05-03-2022 End: 05-03-2022 [facility]ulatory [facility] Start: 05-03-2022 End: 05-03-2022 Subsequent hospital visit by physician Mayda Castro MD Work Phone: [facility] Comment on above: PSA elevation Start: 04-23-2022 End: 04-26-2022 ambulatory MAYDA Donald [facility] Start: 04-23-2022 End: 04-28-2022 ambulatory RADAMES B MART [facility] Start: 04-23-2022 End: 04-25-2022 Subsequent hospital visit by physician Rina X-Ray [facility] Comment on above: Arrived Start: 04-23-2022 End: 04-27-2022 Subsequent hospital visit by physician Rina Pat Rm 1 [facility] PRE-ADMIT TESTING Procedures Date Procedure Procedure Detail Performing Clinician Start: 04-04-[address] DOCTOR GARZON Comment on above: Performed By: #### P SAD #### [facility] [address] [place] [address] Dr. Mireya Tabor Start: 02-05-[address] DOCTOR GARZON Comment on above: Performed By: #### P SAD #### [facility] [address] [place] [address] Dr. Mireya Tabor Start: 08-04-[address] DOCTOR GARZON Comment on above: Performed By: #### P SAD #### [facility] [address] [place] [address] Dr. Mrieya Tabor Start: 04-23-2022 Radiologic exam ches t 2 views Fish Rider MD Work Phone: Start: 04-23-2022 Electrolyte panel Fish Rider MD Work Phone: Start: 04-23-2022 Ecg routine ecg w/le ast 12 lds w/i&r Fsih Rider MD Work Phone: Start: 03-04-2022 Colonoscopy Irina OBRIEN Work Phone: Plan of Treatment Date Care Activity Detail Author Start: 03-04-2032 Screening for malign ant neoplasm of colon [facility] Start: 07-29-2025 Influenza vaccination Influenza Vacc ine (#1) [facility] Start: 02-07-2025 End: 02-07-2025 Patient encounter procedure 02/07/2025 1:00 PM EDT Office Visit [facility] [address] [place] [id number] Irina Bowman PA [address] [place] [address] Arrived [facility] Comment on above: Arrived Start: 07-29-2024 Influenza vaccination Influenza Vacc ine (#1) [facility] Start: 01-25-2023 Lipid panel Lipids [facility] Start: 07-29-2022 Influenza vaccination Flu vacc ine (Season Ended) [facility] Start: 05-03-2022 End: 05-03-2022 Admission to same day surgery center 05/03/2022 Surgery IP Unit Mayda Castro MD [address] [place] [address] FUSION PROSTATE BIOPSY WITH ULTRASOUND MRI WAS AT [facility] ON 03/12 [facility] Comment on above: FUSION PROSTATE BIOP SY WITH ULTRASOUND MRI WAS AT [facility] ON 03/12 Start: 05-03-2022 End: 05-03-2022 Anesthesia consultation 05/03/2022 Anesthesia Event IP Unit Fish Rider MD [address] [place] [address] [facility] Start: 05-03-2022 Subsequent hospital visit by physician 05/03/2022 Hospital Encounter IP Unit Mayda Castro MD [address] [place] [address] [facility] Start: 05-03-2022 End: 05-03-2022 Biopsy prostate incisional any approach [facility] Start: 05-31-2020 Pneumococcal 65+ yea rs Vaccine (2 - PCV) Pneumococcal 65+ years Vaccine (2 - PCV) [facility] Start: 2017 Abdominal aortic aneurysm screening AAA screen [facility] Start: 2002 Shingles vaccine (1 of 2) Shingles vaccine (1 of 2) [facility] Start: 1997 Screening for malign ant neoplasm of colon [facility] Start: 1992 Prostate specific antigen measurement Prostate Specific Antigen (PSA) Screening or Monitoring [facility] Start: 1971 DTaP/Tdap/Td vaccine (1 - Tdap) DTaP/Tdap/Td vaccine (1 - Tdap) [facility] Start: 1970 Hepatitis C screening Hepatitis C sc reen [facility] Start: 1964 Depression Screen Depression Screen [facility] [employer] Start: 1952 Annual Wellness Visi t (AWV) Annual Wellness Visit (AWV) [facility] Start: 1952 Screening for malign ant neoplasm of colon [facility] Continuous pulse oximetry Pulse oximetry, continuous Respiratory Care Routine Every 4hr until discontinued starting 05/04/2022 [facility] Work Phone: Comment on above: Every 4hr until disc ontinued starting 05/04/2022 Surgical Pathology Surgical Path ology Lab Routine PSA elevation Release Upon Ordering for 1 Occurrences starting 05/03/2022 [facility] Phone: Comment on above: Release Upon Orderin g for 1 Occurrences starting 05/03/2022 End: 05-03-2022 SURGICAL PATHOLOGY REPORT SURGICAL PATHOLOGY REPORT Lab Routine Once for 1 Occurrences starting 05/03/2022 until 05/03/2022 [facility] Work Phone: Comment on above: Once for 1 Occurrenc es starting 05/03/2022 until 05/03/2022 Immunizations Immunization Date Immunization Notes Care Provider [facility] 02-03-2024 Influenza, High-dose Seasonal, Quadrivalent, Preservative Free Irina OBRIEN Work Phone: [facility] 02-03-2024 Pneumococcal Conjuga te PCV 20 Irina OBRIEN Work Phone: [facility] 02-03-2024 influenza virus vacc ine, unspecified formulation Irina OBRIEN Work Phone: [facility] 10-19-2022 Influenza, Seasonal, Quadrivalent, Adjuvanted Irina OBRIEN Work Phone: [facility] 02-12-2022 Influenza, Seasonal, Quadrivalent, Adjuvanted Irina OBRIEN Work Phone: [facility] 02-02-2022 COVID-19, Pfizer Pur ple top, DILUTE for use, 12+ yrs, 30mcg/0.3mL dose Sta Rm [facility] [employer] Work Phone: 01-29-2021 COVID-19, Pfizer Pur ple top, DILUTE for use, 12+ yrs, 30mcg/0.3mL dose Sta Rm [facility] [employer] Work Phone: 01-08-2021 COVID-19, Pfizer Pur ple top, DILUTE for use, 12+ yrs, 30mcg/0.3mL dose Sta Rm [facility] [employer] Work Phone: 09-20-2020 influenza, high dose seasonal, preservative-free Irina Hemmer PA Work Phone: [facility] 09-20-2020 Influenza, High-dose Seasonal, Quadrivalent, Preservative Free Irina Hemmer PA Work Phone: [facility] 06-25-2020 zoster vaccine recombinant Irina Hemmer PA Work Phone: [facility] 01-28-2020 pneumococcal polysaccharide vaccine, 23 valent Irina Hemmer PA Work Phone: [facility] 01-28-2020 zoster vaccine recombinant Irina Hemmer PA Work Phone: [facility] 10-31-2019 influenza, high dose seasonal, preservative-free Irina Hemmer PA Work Phone: [facility] 10-31-2019 Influenza, High-dose Seasonal, Quadrivalent, Preservative Free Irina Hemmer PA Work Phone: [facility] 05-31-2019 pneumococcal polysaccharide vaccine, 23 valent Irina Hemmer PA Work Phone: [facility] 09-29-2017 influenza, high dose seasonal, preservative-free Irina Hemmer PA Work Phone: [facility] 09-14-2016 influenza, injectabl e, quadrivalent, contains preservative Irina Hemmer PA Work Phone: [facility] 09-14-2016 influenza, injectabl e, quadrivalent, preservative free Irina Hemadrien PA Work Phone: [facility] 09-06-2015 influenza virus vacc ine, unspecified formulation Irina Hemmer PA Work Phone: [facility] 08-28-2014 influenza virus vacc ine, unspecified formulation Irina Hemmer PA Work Phone: [facility] 11-08-2013 influenza virus vacc ine, unspecified formulation Irina Hemmer PA Work Phone: [facility] 10-28-2012 pneumococcal polysaccharide vaccine, 23 valent Irina Hemmer PA Work Phone: [facility] 02-27-1992 tetanus toxoid, redu franchesca diphtheria toxoid, and acellular pertussis vaccine, adsorbed Irina Hemmer PA Work Phone: [facility] Healthcare Payers Date Payer Category Payer Private Health Insurance [facility] [id number] 2017 Medicare MEDICARE .[id number] 1959 Medicare [id number] 1959 Private Health Insurance [id number] [id number] .[id number] 1952 Unknown [id number] 2.16.840.1.764359.3.579.2 .177 1952 Unknown [id number] 2.16.840.1.388633.3.579.2 .177 1952 Unknown [id number] 2.16.840.1.598705.3.579.2 .177 1952 Unknown [id number] 2.16.840.1.479031.3.579.2 .593 1952 Unknown [id number] 2.16.840.1.401695.3.579.2 .593 1952 Unknown [id number] 2.16.840.1.977558.3.579.2 .593 1952 Unknown [id number] 2.16.840.1.792153.3.579.2 .593 1952 Unknown [id number] 2.16.840.1.704296.3.579.2 .1259 1952 Unknown [id number] 2.16.840.1.945777.3.579.2 .1259 1952 Unknown [id number] 2.16.840.1.959057.3.579.2 .1259 1950 Unknown [id number] 2.16.840.1.661260.3.579.2 .718 1950 Unknown [id number] 2.16.840.1.120516.3.579.2 .718 1950 Unknown [id number] 2.16.840.1.954926.3.579.2 .718 Social History Date Type Detail Facility Start: 04-23-2022 End: 06-15-2023 Tobacco smoking status MNIS Ex-smoker [employer] Phone: End: 11-28-2006 History of tobacco use Current smoker [employer] Phone: Start: 04-23-2022 End: 06-15-2023 Tobacco use and exposure Smokeless tobacco non-user [employer] Phone: Start: 04-23-2022 End: 02-07-2025 Alcohol intake Current drinker of alcohol (finding) [employer] Phone: Start: 04-23-2022 End: 02-07-2025 Alcohol intake [employer] Phone: Start: 1950 Sex Assigned At Not on file B ON [employer] Phone: Start: 04-23-2022 End: 05-03-2022 Exposure to SARS-CoV-2 (event) Not sure [employer] Phone: Start: 05-23-2024 End: 02-07-2025 Sex Assigned At [facility] Other History of tobacco use Cigarette Smoker [facility] Start: 06-21-2023 Alcohol Comment caffeine 1-2 c ups per day [facility] Clinical Notes 04-23-2022 to 07-31-2025 Telephone Encounter - Lolita Mccoy - 05/29/2025 1:52 PM EDTTelephone Encounter - Lolita Allison - 05/29/2025 1:52 PM EDTTelephone Encounter - Lolita Allison - 05/20/2025 9:28 AM EDT Note Date & Type Note Facility 07-31-2025 Note - From: Drea Chopra (Urology Clinical Pool ([facility] Sent: 07/31/2025 14:24:29 EDT Subject: General Message Caller Name: BRIAN QUEZADA; Caller Number: H , M Pt called stated had not received medication Orgovyx sent to [facility]. Spoke with Pharmacist Arlette, who stated she was waiting for insurance coverage ID # and pt should be receiving medication soon by delivery. Pt called and notified. [facility] 07-17-2025 Note - From: Drea Chopra Sent: 07/17/2025 08:14:01 EDT Subject: General Message Caller Name: BRIAN QUEZADA; Caller Number: H , M Refill request Orgovyx (Relugolix) 120mg tablet, 1 tablet orally once a day, #30, 11 refills. Sent to [facility] Needs to be seen in office in 3-4 months. Pt next appointment must kept for more refills per Dr. Castro. [facility] 05-29-2025 Telephone encounter Note Form atting of this note might be different from the original. Lvm 3rd attempt to contact no contact letter sent [facility] 05-29-2025 Miscellaneous Notes Formattin g of this note might be different from the original. Lvm 3rd attempt to contact no contact letter sent Patient stated they will call back and schedule within the next couple of days Kenyt is overdue for sandeep middleton trying to schedule appt documented in this encounter [facility] 05-20-2025 Telephone encounter Note Form atting of this note might be different from the original. Patient stated they will call back and schedule within the next couple of days [facility] 05-13-2025 Telephone encounter Note Form atting of this note might be different from the original. Bryson is overdue for mawv - lvm trying to schedule appt [facility] 08-24-2022 Evaluation note Encounter Date Diagnosis Assessment Notes Jul, Abdominal distension (ICD-10 - R14.0) Jul, Constipation (ICD-10 - K59.00) OBTAIN COLONOSCOPY FROM [facility] MAY USE LINZESS NEEDED F/U PRN [facility] Other 06-06-2022 Hospital Discharge instructions* Instructions* Mayda Castro MD - 05/03/2022 Patricio, Everything went excellent today. Biopsy results will come back in 1 to 1.5 weeks. We will sit down and discuss this in my office. Please resume your Plavix on Tuesday. Okay to resume all other homemedications today. Regular activity. No restrictions. Regular diet. Best, Dr. Mayda Castro MD documented in this [facility] Work Phone: [phone]) 143-390405-27-2022 History of Present illness Narrative* Erin Mclaughlin, FAITH - SUPERVISOR [employer] - 04/23/2022 8:00 AM EDT PAT Progress Note Pt Name: Brian Quezada Birthdate: 1950 Date of evaluation: 04/23/2022 [x] Called to PAT. I spoke to the patient, Brian Quezada, a 71 y.o. male, who is scheduled for an upcoming FUSION PROSTATE BIOPSY WITH ULTRASOUND MRI WAS AT [facility] ON 03/12 by Mayda Castro MD for DX ELEVATED PSA on 05/03/2022 at 1200. [x] I reviewed the hard copy urology progress note by Dr. Castro for an Interval History and PhysicalNote the day of surgery. History of coronary [...] ms QTc Calculation (Bazett) 410 ms P [place] 88 degrees R [place] 42 degrees T [place] 81 degrees CBC Collection Time: 04/23/22 9:11 [...] 04/23/2022 at 1:55 PM [facility] [employer] Phone: evaluation note* Diagnosis PSA elevation Elevated prostate specific antigen (PSA) documented in this encounter [facility] [employer] Phone: History general Narrative - Reported* Type Description Date Medical History Hypercholesterolemia Medical History Heart disease Medical History Anxiety Medical History Depression Medical History GERD (gastroesophageal reflux di sease) Medical History COPD (chronic obstructive pulmon thor disease) Medical History emphysema Medical History lung chest nodule Medical History prostate cancer Surgical History hernia Surgical History cardiac stent Surgical History wisdom teeth Hospitalization History see above [facility] Other Reason for visit Narrative* Auth/Cert Specialty Diagnoses / Procedures Referred By Dat yadav Referred To Contact Diagnoses Elevated PSA DX ELEVATED PSA Procedures [place] BIOPSY OF PROSTATE,INCISIONAL FUSION PROSTATE BIOPSY WITH ULTRASOUND MRI WAS AT [facility] ON 03/12 Mayda Castro MD [address] [facility] [place] [address] [employer] [address] [place] [address] Referral ID Status Reason Start Date Expiration Date Visits Re quested Visits Authorized [employer] Work Phone: Summary Purpose Family History No [...] section and content) DATE CREATED AUTHOR 02/05/2022 [facility] dical Specialist DATE CREATED AUTHOR AUTHOR'S ORGANIZ ATION 05/07/2022 [facility] DATE CREATED AUTHOR AUTHOR'S ORGANIZ ATION 04/08/[address] 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 Relationship Specialty Start Date End Date Radames Mart MD [address] [facility] [address] [place] [address] PCP - General Internal Medicine 04/23/22 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 Relationship Specialty Start Date End Date Radames Mart MD [address] [place] [address] PCP - General Internal Medicine 04/23/22 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 Relationship Specialty Start Date End Date Radames Mart MD [address] [place] [address] PCP - ACO Reach 04/21/23 Radames Mart MD [address] [place] [address] PCP - General Internal Medicine 06/16/23 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 Relationship Specialty Start Date End Date Radames Mart MD [address] [place] [address] PCP - ACO Reach 04/21/23 Radames Mart MD [address] [facility] [address] [place] [address] PCP - General Internal Medicine 06/16/23 Scheduled Active and Recently Administ ered Medications (unrecognized section and content) Medication Order 05/01/2022 05/02/2022 05/03/2022 ceFAZolin (ANCEF) 2000 mg in dextrose 5 % 50 mL IVPB (COMPLETED) 2,000 mg, IntraVENous, ONCE, 1 dose, On Tue05/03/22 at 1130, Antimicrobial Indications: Surgical Prophylaxis, Pre-op (day of surgery), STAT 1120 (Given - Provid er: Luna Barfield, CT SCAN TECHNOLOGIST - SUPERVISOR PA[employer] DEPARTMENT) sodium chloride flush 0.9 % injection 5-40 [...] ider: Sofi Lemus RN)1115 (NoRateChange - Provider: Luna Barfield APRN - SUPERVISOR PA[employer] DE[employer]MENT)1133 (Rate/Dose Change - Provider: FAITH Stanton CRNA)1215 [...] BE BASED ON THE PRIMARY CLINICAL RECORDS. [employer] provides no warranty or guarantee of the accuracy or completeness of information in this document.
[2025-09-06 22:22] LABS: Hematocrit 41.0 % (42.0-54.0); Hemoglobin 12.8 g/dL (14.0-18.0); Immature Granulocytes Abs Auto 0.02 10^3/uL (0.00-0.03); Immature Granulocytes Pct Auto 0.2 % (0.0-0.5); Lymphocytes Absolute Auto 1.8 10^3/uL (1.2-3.8); Mean Corpuscular HGB Conc 31.2 g/dL (29.9-35.2); Mean Corpuscular Hemoglobin 29.4 pg (25.9-34.0); Mean Corpuscular Volume 94.0 fL (80.0-94.0); Platelet Count 190 10^3/uL (150-450); Red Blood Count 4.36 10^6/uL (4.70-6.10); White Blood Count 9.6 10^3/uL (4.0-11.0)
[2025-09-06 22:33] VITALS: PULSE 92; O2SAT 95
[2025-09-06] MEDS: IPRATROPIUM/ALBUTEROL SULFATE 3 ML AMPUL.NEB IH (22:35)
[2025-09-06 22:42] LABS: Alanine Aminotransferase 19 U/L (16-63); Albumin Globulin Ratio 0.7; Albumin Level 3.1 g/dL (3.4-5.0); Alkaline Phosphatase 71 U/L (46-116); Anion Gap 8.7; Aspartate Amino Transferase 16 U/L (15-37); Blood Urea Nitrogen 17.0 mg/dL (7.0-18.0); Calcium 9.2 mg/dL (8.5-10.1); Carbon Dioxide 36.7 mmol/L (21.0-32.0); Chloride 102 mmol/L (98-107); Estimated GFR (African America >60 (>=60 mL/min/1.73m^2); Estimated GFR (Non-African Ame >60 (>=60 mL/min/1.73m^2); Globulin 4.4 g/dL; Glucose 115 mg/dL (74-106); NT Pro B Type Natriuretic Pept 91.0 pg/mL (<=900.0); Potassium 4.4 mmol/L (3.5-5.1); Sodium 143 mmol/L (136-145); Total Protein 7.5 g/dL (6.4-8.2)
[2025-09-06 23:03] LABS: Lactate/Lactic Acid 1.1 mmol/L (0.4-2.0)
[2025-09-06] MEDS: METHYLPREDNISOLONE SOD SUCC PF 40 MG/ML VIAL IVP (23:03)
[2025-09-06 23:35] LABS: SARS-CoV-2 Ag NEGATIVE (NEGATIVE)
[2025-09-06] MEDS: 0.9 % SODIUM CHLORIDE 1,000 ML 1000 ML IV (23:51)
[2025-09-07] VITALS (89 sets, daily range): BP systolic 94–132; BP diastolic 75–87; PULSE 74–135; RESP 14; TEMP 36.1–36.8; O2SAT 82–99; BMI 25.1
[2025-09-07] MEDS: DOXYCYCLINE HYCLATE 100 MG in 0.9 % SODIUM CHLORIDE 100 ML IV ×2 (01:04→11:24)
--- NOTE | 2025-09-07 01:57 | PC.NURSE ---
Audible crackles noted
[2025-09-07 03:47] LABS: ABG PCO2 52.3 mmHg (35.0-45.0); PO2 ABG 77.9 mmHg (80.0-100.0)
[2025-09-07 03:48] LABS: Allen Test POSITIVE (POSITIVE); BIPAP Pressure 16/8; HCO3 ABG 31.2 mmol/L (22.0-26.0); O2 Mode BIPAP; Oxygen Saturation ABG 96.8 %; Puncture Site RR
--- NOTE | 2025-09-07 03:51 | PC.NURSE ---
aware of ABG results.
--- OUTSIDE RECORDS SUMMARY | 2025-09-07 03:58 | XMS_ITS | CCD ---
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 Name Role Phone Radames Mart MD Primary Care Provider [phone] MAYDA CASTRO Admitting Unavailable MAYDA CASTRO Attending [...] DR BLAYNE Mendez Consulting Unavailable MISC, DR LUA Admitting Unavailable MAIA, DR FIORE Primary Care Unavailable MISC, DR LAU Attending Unavailable MISC, DR LAU Consulting Unavailable MISC, DR LAU Admitting Unavailable MAIA, DR FIORE Consulting Unavailable MAIA, DR FIORE Primary Care Unavailable MISC, DR LAU Attending Unavailable Radames Mart MD Unavailable [phone] Radames Mart MD Primary Care Provider IRINA BOWMAN Attending Unavailable RADAMES MART Attending Unavailable RADAMES MART Attending Unavailable Mayda Castro Attending Unavailable RADAMES MART Primary Care Unavailable Mayda Castro Attending Unavailable RADAMES MART Primary Care Unavailable RADAMES MART Primary Care Unavailable Mayda Castro Attending Unavailable Allergies Allergy Classification Reported Allergen(s) Allergy Type Date of Onset Reaction(s) Facility (1 source) Theophylline Drug Allergy [facility] ESILLAGE Other (1 source) Dust; Translations: [Dust] Propensity to adverse reactions (disorder) [facility] Repository Medications Current Medications Medication Drug [...] morning and at bedtime 0 Active Aclidinium [place] 400 MCG/ACT (1 source) take 1 puff(s) by inhalation once daily Aclidinium [place] 400 MCG/ACT 1 puff Inhalation daily Active [...] 2 puff(s) by inhalation in the morning Dqxxsos-Hdvzpfblubl-Mbe moterol (Breztri Aerosphere) 160-9-4.8 MCG/ACT aerosol Indications: [...] Coronary atherosclerosis; Translations: [Atherosclerotic heart disease of [place] coronary artery without angina pectoris] Onset: 3 [...] [facility] - Other Lab Results [id number] [facility] BONE [facility] BODYon 022 HI BONE [facility] BODY EXAMINATION: HI BONE [facility] BODY HISTORY: Primary malignant neoplasm of prostate COMPARISON: No relevant comparison available. TECHNIQUE: After obtaining the patient's consent, 25.5 mCi Technetium 99m MDP was injected intravenously. Images were obtained approximately two hours later. FINDINGS: ABNORMALITIES: No abnormal or suspicious radiotracer accumulation. OTHER: Negative. IMPRESSION: 1. No evidence of skeletal metastasis. Electronically authenticated by: BLAYNE YOUNG Date: 2022-07-26 14:47 Normal [facility] Surgical Pathologyon 022 Surgical Pathology (NOTE) -- [...] THE ADENOCARCINOMA IN THE INVOLVED BIOPSIES. FOR MANAGER EQUIPMENT THE SLIDES OF SPECIMEN B WERE REVIEWED BY A SECOND PATHOLOGIST (FERNANDO). * THIS TEST WAS DEVELOPED AND ITS PERFORMANCE CHARACTERISTICS DETERMINED BY [facility] ANATOMIC PATHOLOGY. IT HAS NOT [...] SURGICAL PATHOLOGY CONSULTATION Patient Name: BRIAN QUEZADA [facility] Rec: [id number] Path Number: [id number] [employer] [facility] ANATOMIC PATHOLOGY [address] [place] [phone] Normal [facility] Comment on above: Performed By: #### P PPVS #### Consulted [address] [place] [address] Youth Care Professional: Brady Wilkes MD EKG 12 LeadOrdered By: Ney Ferrara on 04-24-2022 Atrial Rate 91 BPM KATHLEEN [employer] Work Phone: P [place] 88 degrees KATHLEEN [employer] Work Phone: P-R Interval 158 ms [employer] Work Phone: Q-T Interval 334 ms [employer] Work Phone: QRS Duration 90 ms KATHLEEN [employer] Work Phone: QTc Calculation (Bazett) 410 ms [employer] Work Phone: R [place] 42 degrees KATHLEEN [employer] Work Phone: T [place] 81 degrees [employer] Work Phone: Ventricular Rate 91 BPM KATHLEEN [employer] Work Phone: [employer] Work Phone: EKG 12 Leadon 04-24-2022 Normal sinus rhythm Low voltage QRS Borderline ECG No previous ECGs available [facility] Ney Quezada MD - 04/24/2022 Normal sinus rhythm Low voltage QRS Borderline ECG No previous ECGs available [employer] Work Phone: BUN & Creatinineon 2 Creatinine [Mass/Vol] 0.93 mg/dL 0.70 - 1.20 mg/dL [employer] GFR >60 >60 mL/min [employer] GFR Non- >60 >60 mL/min [employer] GFR/1.73 sq M.predicted MDRD (S/P/Bld) [Vol rate/Area] [employer] Comment on above: Average GFR for 60-6 9 years old: 85 mL/min/1.73sq m Chronic Kidney Disease: <60 mL/min/1.73sq m Kidney failure: <15 mL/min/1.73sq m eGFR calculated using average adult body mass. Additional eGFR calculator available at: http://www.Lamsa/multiple_crcl_2012.htm Urea nitrogen (BldV) [Mass/Vol] 10 mg/dL 8 - 23 mg/dL [facility] BUN + Creatinineon 2 (cont.) Normal [facility] Comment on above: Result Comment: Aver age GFR for 60-69 years old: 85 mL/min/1.73sq m Chronic Kidney Disease: <60 mL/min/1.73sq m Kidney failure: <15 mL/min/1.73sq m eGFR calculated using average adult body mass. Additional eGFR calculator available at: http://www.Lamsa/multiple_crcl_2011.htm Performed By: #### C BC, BUNCRT, LYTE #### [facility] [address] [facility] [place] [address] Youth Care Professional: Jean-Pierre Gallardo MD Creatinine [Mass/Vol] 0.93 mg/dL Normal 0.70-1.20 [facility] Comment on above: Performed By: #### C BC, BUNCRT, LYTE #### [facility] [address] [facility] [place] [address] Youth Care Professional: Jean-Pierre Gallardo MD GFR, Amer >60 Normal >60 [facility] Comment on above: Performed By: #### C BC, BUNCRT, LYTE #### [facility] [address] [facility] [place] [address] Youth Care Professional: Jean-Pierre Gallardo MD GFR,non Amer >60 Normal >60 [facility] Comment on above: Performed By: #### C BC, BUNCRT, LYTE #### [facility] [address] [facility] [place] [address] Youth Care Professional: Jean-Pierre Gallardo MD Urea nitrogen [Mass/Vol] 10 mg/dL Normal 8-23 [facility] Comment on above: Performed By: #### C BC, BUNCRT, LYTE #### [facility] [address] [place] [address] Youth Care Professional: Jean-Pierre Gallardo MD CBCon 04-23-2022 Erythrocyte distribution width (RBC) [Ratio] 11.9 % Normal 11.8-14.4 [facility] Comment on above: Performed By: #### C NICK BUNCRT, LYTE #### [facility] [address] [place] [address] Youth Care Professional: Jean-Pierre Gallarod MD Hematocrit (Bld) [Volume fraction] 45.0 % Normal 40.7-50.3 [facility] Comment on above: Performed By: #### Allan ROMERO BUNCRT, LYTE #### [facility] [facility] [place] [address] Youth Care Professional: Jean-Pierre Gallardo MD Hemoglobin (Bld) [Mass/Vol] 14.1 g/dL Normal 13.0-17.0 [facility] Comment on above: Performed By: #### Allan ROMERO BUNCRT, LYTE #### [facility] [address] [place], [place] [address]ia [facility] [place] [address] Youth Care Professional: Jean-Pierre Gallardo MD MCH (RBC) [Entitic mass] 30.5 pg Normal 25.2-33.5 [facility] Comment on above: Performed By: #### Allan ROMERO BUNCRT, LYTE #### [facility] [place] [address] Youth Care Professional: Jean-Pierre Gallardo MD MCHC (RBC) [Mass/Vol] 31.3 g/dL Normal 28.4-34.8 [facility] Comment on above: Performed By: #### C NICK BUNCRT, LYTE #### [facility] [place] [address] Youth Care Professional: Jean-Pierre Gallardo MD MCV (RBC) [Entitic vol] 97.4 fL Normal 82.6-102.9 [facility] Comment on above: Performed By: #### C TONY ROMERO, LYTE #### [facility] [place] [address] Youth Care Professional: Jean-Pierre Gallardo MD NRBC Automated 0.0 per 100 WBC Normal 0.0 [facility] Comment on above: Performed By: #### C NICK BUNCRT, LYTE #### [facility] [address] [place] [address] Youth Care Professional: Jean-Pierre Gallardo MD Platelet mean volume (Bld) [Entitic vol] 9.9 fL Normal 8.1-13.5 [facility] Comment on above: Performed By: #### TONY HART, LYTE #### [facility] [address] [place] [address]. [place] [address] Youth Care Professional: Jean-Pierre Gallardo MD Platelets (Bld) [#/Vol] 162 10*3/uL Normal 138-453 [facility] Comment on above: Performed By: #### TONY HART, LYTE #### [facility] [address] [place] [address] Youth Care Professional: Jean-Pierre Gallardo MD RBC (Bld) [#/Vol] 4.62 10*6/uL Normal 4.21-5.77 [facility] Comment on above: Performed By: #### Allan ROMERO BUNCRT, LYTE #### [facility] [address] [place] [address]. [place] [address] Youth Care Professional: Jean-Pierre Gallardo MD WBC (Bld) [#/Vol] 9.2 10*3/uL Normal 3.5-11.3 [facility] Comment on above: Performed By: #### YOGI HARTCRT, LYTE #### [facility] [address] [place], [place] [id number] Youth Care Professional: Jean-Pierre Gallardo MD Hematocrit (Bld) [Volume fraction] 45.0 % 40.7 - 50.3 % [facility] Hemoglobin.gastrointes tinal spec 1 Ql (Stl) 14.1 g/dL 13.0 - 17.0 g/dL [facility] MCH (RBC) [Entitic mass] 30.5 pg 25.2 - 33.5 pg [facility] MCHC (RBC) [Mass/Vol] 31.3 g/dL 28.4 - 34.8 g/dL [facility] MCV (RBC) [Entitic vol] 97.4 fL 82.6 - 102.9 fL [facility] NRBC Automated 0.0 0.0 per 100 WBC [facility] Platelet distribution width (Bld) [Ratio] 11.9 % 11.8 - 14.4 % [facility] Platelet mean volume (Bld) [Entitic vol] 9.9 fL 8.1 - 13.5 fL [facility] Platelets (Bld) [#/Vol] 162 10*3/uL [facility] RBC (Bld) [#/Vol] 4.62 10*6/uL 4.21 - 5.7 7 m/uL [facility] WBC (Bld) [#/Vol] 9.2 10*3/uL [facility] Electrolyte Panelon 04-23-20 22 Anion gap [Moles/Vol] 6 mmol/L Low 9 - 17 mmol/L [facility] Chloride [Moles/Vol] 101 mmol/L 98 - 10 7 mmol/L [facility] CO2 [Moles/Vol] 35 mmol/L High 20 - 31 mmol/L [facility] Interpretation and review of laboratory results Abnormal [facility] Potassium [Moles/Vol] 4.6 mmol/L 3.7 - 5.3 mmol/L [facility] Sodium [Moles/Vol] 142 mmol/L 135 - 144 mmol/L [facility] Electrolyteson 04-23-2022 Anion gap [Moles/Vol] 6 mmol/L Low 9-17 [facility] Comment on above: Performed By: #### C TONY ROMERO, LYTE #### [facility] [address] [place] [address] Youth Care Professional: Jean-Pierre Gallardo MD Chloride [Moles/Vol] 101 mmol/L Normal 98-107 [facility] Comment on above: Performed By: #### C NICK BUNCRT, LYTE #### [facility] [address] [place] [address] Youth Care Professional: Jean-Pierre Gallardo MD CO2 [Moles/Vol] 35 mmol/L High 20-31 [facility] Comment on above: Performed By: #### TONY HART, LYTE #### [facility] [address] [place] [address] Youth Care Professional: Jean-Pierre Gallardo MD Potassium [Moles/Vol] 4.6 mmol/L Normal 3.7-5.3 [facility] Comment on above: Performed By: #### Allan ROMERO BUNCRT, LYTE #### [facility] [address] [place] [address] Youth Care Professional: Jean-Pierre Gallardo MD Sodium [Moles/Vol] 142 mmol/L Normal 135-144 [facility] Comment on above: Performed By: #### Allan ROMERO BUNCRT, LYTE #### [facility] [address] [place] [address] Youth Care Professional: Jean-Pierre Gallardo MD No Panel Informationon 04-23 [facility] Chronic pulmonary change without acute cardiopulmonary process. [facility] RIS CONSOLIDATED EXAMINATION: TWO XRAY VIEWS OF THE CHEST 04/23/2022 9:14 am COMPARISON: None. HISTORY: ORDERING SYSTEM PROVIDED HISTORY: pre-op TECHNOLOGIST PROVIDED HISTORY: Pt in [facility] pre-op Reason for Exam: Pre op prostate surg, May 03, 2022. COPD FINDINGS: There is chronic pulmonary change. There is no acute consolidation or effusion. There is no pneumothorax. The mediastinal structures are unremarkable. The upper abdomen unremarkable. The extrathoracic soft tissues are unremarkable. [facility] Frank Farrar MD - 04/23/2022 EXAMINATION: TWO XRAY VIEWS OF THE CHEST 04/23/2022 9:14 am COMPARISON: None. HISTORY: ORDERING SYSTEM PROVIDED HISTORY: pre-op TECHNOLOGIST PROVIDED HISTORY: Pt in [facility] pre-op Reason for Exam: Pre op prostate surg, May 03, 2022. COPD FINDINGS: There is chronic pulmonary change. There is no acute consolidation or effusion. There is no pneumothorax. The mediastinal structures are unremarkable. The upper abdomen unremarkable. The extrathoracic soft tissues are unremarkable. IMPRESSION: Chronic pulmonary change without acute cardiopulmonary process. [facility] Phone: Radiology Study observation (narrative) [facility] Phone: No Panel InformationOrdered By: Frank Roque on 04-23-2022 [facility] Phone: XR CHEST (2 VW)on 04-23-2022 XR CHEST (2 VW) EXAMINATION: TWO XRAY VIEWS OF THE CHEST 04/23/2022 9:14 am COMPARISON: None. HISTORY: ORDERING SYSTEM PROVIDED HISTORY: pre-op TECHNOLOGIST PROVIDED HISTORY: Pt in [facility] pre-op Reason for Exam: Pre op [...] Frank Roque MD 04/23/22 Final result Normal [facility] Q - PSA (FREE AND TOTAL)on 0 02-02-2022 PSA, % FREE 13 % (calc) Low >25 [facility] Program Manager Comment on above: Order Comment: [facility] performed at: [employer], [employer] [facility] [facility], [address], [address], [place], [address], Wood And Hardware Outfitter: Fermín Aj MD [facility] Date/Time: [facility] [...] 30 93 9 (3)Catalona et al.:PAVAN 277: 6255-0949 (1996) (4)Catalona et al.:PAVAN 279: 3167-0675 (1997) (x)These estimates vary with age, ethnicity, [...] mind. PSA was performed using the [place] Immunoassay method. Values obtained from different assay methods cannot be used interchangeably. PSA levels, regardless of value, should not be interpreted as absolute evidence of the presence or absence of disease. Performed By: #### 3 [id number] #### [facility] Default [address] [place] [address] PSA, FREE 0.9 ng/mL Normal [facility] Program Manager Comment on above: Order Comment: [facility] performed at: [facility] [employer] [facility], [address], [address] [place] [address], [phone], Wood And Hardware Outfitter: Fermín Aj MD [facility] Date/Time: [facility] Results Received Date/Time: [facility] Reported Date/Time: Performed By: #### 3 [id number] #### [facility] [address] [place] [address] PSA, TOTAL 7.0 ng/mL High < OR = 4.0 [facility] Program Manager Comment on above: Order Comment: [facility] performed at: [facility], [employer] [facility], [address] [place] [address], [phone], Wood And Hardware Outfitter: Fermín Aj MD [facility] Date/Time: [facility] Results Received Date/Time: [facility] Reported Date/Time: Performed By: #### 3 [id number] #### [facility] [address] [place] [address] Complete Blood Count with Au to Diffon 01-25-2022 Basophils (Bld) [#/Vol] 0.07 10*3/uL Normal 0.00-0.20 [facility] Program Manager Comment on above: Performed By: #### C BCAD, CMP, LIPD #### [facility] [address] [place] [id number] Basophils/100 WBC (Bld) 1.0 % Normal [facility] Program Manager Comment on above: Performed By: #### C BCAD, CMP, LIPD #### [facility] [address] [place] [id number] Eosinophils (Bld) [#/Vol] 0.23 10*3/uL Normal 0.02-0.50 [facility] Program Manager Comment on above: Performed By: #### C BCAD, CMP, LIPD #### [facility] [address] [place] [id number] Eosinophils/100 WBC (Bld) 3.2 % Normal [facility] Program Manager Comment on above: Performed By: #### C BCAD, CMP, LIPD #### [facility] [address] [place], [place] [id number] Erythrocyte distribution width (RBC) [Ratio] 11.9 % Normal 11.0-15.0 [facility] Comment on above: Performed By: #### C BCAD, CMP, LIPD #### [facility] [address] [place], [place] [id number] Hematocrit (Bld) [Volume fraction] 43.2 % Normal 38.5-50.0 [facility] Comment on above: Performed By: #### C BCAD, CMP, LIPD #### [facility] [address] [place], [place] [id number] Hemoglobin (Bld) [Mass/Vol] 14.3 g/dL Normal 13.0-17.1 [facility] Comment on above: Performed By: #### C BCAD, CMP, LIPD #### [facility] [address] [place], [place] [id number] Lymphocytes (Bld) [#/Vol] 2.0 10*3/uL Normal 0.9-3.9 [facility] Comment on above: Performed By: #### C BCAD, CMP, LIPD #### [facility] [address] [place], [place] [id number] Lymphocytes/100 WBC (Bld) 28.0 % Normal [facility] Comment on above: Performed By: #### C BCAD, CMP, LIPD #### [facility] [address] [place], [place] [id number] MCH (RBC) [Entitic mass] 31.0 pg Normal 27.0-33.0 [facility] Comment on above: Performed By: #### C BCAD, CMP, LIPD #### [facility] [address] [place], [place] [id number] MCHC (RBC) [Mass/Vol] 33.1 g/dL Normal 32.0-36.0 [facility] Comment on above: Performed By: #### C BCAD, CMP, LIPD #### [facility] [address] [place], [place] [id number] MCV (RBC) [Entitic vol] 94 fL Normal 80-100 [facility] Comment on above: Performed By: #### C BCAD, CMP, LIPD #### [facility] [address] [place], [place] [id number] Monocytes (Bld) [#/Vol] 0.7 10*3/uL Normal 0.2-0.9 [facility] Comment on above: Performed By: #### C BCAD, CMP, LIPD #### [facility] [address] [place], [place] [id number] Monocytes/100 WBC (Bld) 9.3 % Normal [facility] Comment on above: Performed By: #### C BCAD, CMP, LIPD #### [facility] [address] [place], [place] [id number] Neutrophils (Bld) [#/Vol] 4.2 10*3/uL Normal 1.5-7.8 [facility] Comment on above: Performed By: #### C BCAD, CMP, LIPD #### [facility] [address] [place], [place] [id number] Neutrophils/100 WBC (Bld) 58.4 % Normal [facility] Comment on above: Performed By: #### C BCAD, CMP, LIPD #### [facility] [address] [place], [place] [id number] Platelet mean volume (Bld) [Entitic vol] 10.20 fL Normal 7.50-12.50 [facility] Comment on above: Performed By: #### C BCAD, CMP, LIPD #### [facility] [address] [place], [place] [id number] Platelets (Bld) [#/Vol] 151 10*3/uL Normal 140-400 [facility] Comment on above: Performed By: #### C BCAD, CMP, LIPD #### [facility] [address] [place], [place] [id number] RBC (Bld) [#/Vol] 4.61 10*6/uL Normal 4.20-5.80 [facility] Specialist Comment on above: Performed By: #### C BCAD, CMP, LIPD #### [facility] [address] [place], [place] [id number] RDW-SD 41.6 fL Normal 37.0-50.0 [facility] Comment on above: Performed By: #### C BCAD, CMP, LIPD #### [facility] [address] [place], [place] [id number] WBC (Bld) [#/Vol] 7.2 10*3/uL Normal 3.8-11.0 [facility] Program Manager Comment on above: Performed By: #### C BCAD, CMP, LIPD #### [facility] [address] [place], [place] [id number] Comprehensive Metabolic Pane champ 01-25-2022 Albumin [Mass/Vol] 4.5 g/dL Normal 3.6-5.1 [facility] Program Manager Comment on above: Performed By: #### C BCAD, CMP, LIPD #### [facility] [address] [place], [place] [id number] Albumin/Globulin [Mass ratio] 2.0 {ratio} Normal 1.0-2.5 [facility] Program Manager Comment on above: Performed By: #### C BCAD, CMP, LIPD #### [facility] [address] [place], [place] [id number] ALP [Catalytic activity/Vol] 78 U/L Normal 40-129 [facility] Comment on above: Performed By: #### C BCAD, CMP, LIPD #### [facility] [address] [place], [place] [id number] ALT [Catalytic activity/Vol] 17 U/L Normal 9-46 [facility] Comment on above: Result Comment: 10/28 Female reference range changed. Performed By: #### C BCAD, CMP, LIPD #### [facility] [address] [place], [place] [id number] Anion gap [Moles/Vol] 15 mmol/L Normal 12-20 [facility] Specialist Comment on above: Result Comment: Effe ctive 12/03/2019 reference range changed. Performed By: #### C BCAD, CMP, LIPD #### [facility] [address] [place], [place] [id number] AST [Catalytic activity/Vol] 20 U/L Normal 10-40 [facility] Comment on above: Performed By: #### C BCAD, CMP, LIPD #### [facility] [address] [place], [place] [id number] Bilirubin [Mass/Vol] 0.53 mg/dL Normal 0.30-1.20 [facility] Comment on above: Performed By: #### C BCAD, CMP, LIPD #### [facility] [address] [place], [place] [id number] BUN/CREA 11 Ratio Normal 6-22 [facility] Comment on above: Performed By: #### C BCAD, CMP, LIPD #### [facility] [address] [place], [place] [id number] Calcium [Mass/Vol] 10.0 mg/dL Normal 8.6-10.2 [facility] Comment on above: Performed By: #### C BCAD, CMP, LIPD #### [facility] [address] [place], [place] [id number] Chloride [Moles/Vol] 103 mmol/L Normal 98-107 [facility] Comment on above: Performed By: #### C BCAD, CMP, LIPD #### [facility] [address] [place], [place] [id number] CO2 [Moles/Vol] 30 mmol/L Normal 20-31 [facility] Comment on above: Performed By: #### C BCAD, CMP, LIPD #### [facility] [address] [place], [place] [id number] Creatinine [Mass/Vol] 1.1 mg/dL Normal 0.7-1.4 [facility] Comment on above: Performed By: #### C BCAD, CMP, LIPD #### [facility] [address] [place], [place] [id number] eGFRAA 81 mL/min/1.73m2 Normal >60 [facility] Comment on above: Performed By: #### C BCAD, CMP, LIPD #### [facility] [address] [place], [place] [id number] eGFRNAA 67 mL/min/1.73m2 Normal >60 [facility] Program Manager Comment on above: Performed By: #### C BCAD, CMP, LIPD #### [facility] [address] [place], [place] [id number] Globulin (S) [Mass/Vol] 2.3 g/dL Normal 1.9-3.7 [facility] Program Manager Comment on above: Performed By: #### C BCAD, CMP, LIPD #### [facility] [address] [place], [place] [id number] Glucose [Mass/Vol] 96 mg/dL Normal 65-99 [facility] [place] [facility] Program Manager Comment on above: Result Comment: For FASTING Glucose --- ADA reference ranges: Normal 65-99 mg/dl Prediabetes 100-125 Diabetes >/= 126 Performed By: #### C BCAD, CMP, LIPD #### [facility] [address] [place], [place] [id number] Potassium [Moles/Vol] 4.3 mmol/L Normal 3.5-5.5 [facility] Specialist Comment on above: Performed By: #### C BCAD, CMP, LIPD #### [facility] [address] [place], [place] [id number] Protein [Mass/Vol] 6.8 g/dL Normal 6.1-8.1 [facility] [place] [facility] Program Manager Comment on above: Performed By: #### C BCAD, CMP, LIPD #### [facility] [address] [place], [place] [id number] Sodium [Moles/Vol] 143 mmol/L Normal 135-146 [facility] [place] [facility] Program Manager Comment on above: Performed By: #### C BCAD, CMP, LIPD #### [facility] [address] [place], [place] [id number] Urea nitrogen [Mass/Vol] 12 mg/dL Normal 7-25 [facility] Program Manager Comment on above: Performed By: #### C BCAD, CMP, LIPD #### [facility] [address] [place], [place] [id number] Lipid Panelon 01-25-2022 Cholesterol [Mass/Vol] 162 mg/dL Normal 125-200 No [facility] Program Manager Comment on above: Result Comment: Low risk < 200mg/dL Borderline risk 201-239 mg/dl High risk > or equal to 240 Performed By: #### C BCAD, CMP, LIPD #### [facility] [address] [place], [place] [id number] Cholesterol in HDL [Mass/Vol] 59 mg/dL Normal >40 [facility] Comment on above: Result Comment: High Cardiovascular Risk HDL <40 mg/dL Low Cardiovascular Risk HDL > or equal to 60 mg/dl Performed By: #### C BCAD, CMP, LIPD #### [facility] [address] [place], [place] [id number] Cholesterol in LDL [Mass/Vol] 79 mg/dL Normal [facility] Comment on above: Result Comment: LDL ATP III CLASSIFICATION LDL less than 100 mg/dl Optimal LDL 100-129 mg/dl Near or above optimal LDL 130-159 Borderline high LDL 160-189 High LDL greater than 189 mg/dl Very High Performed By: #### C BCAD, CMP, LIPD #### [facility] [address] [place], [place] [id number] Cholesterol in VLDL [Mass/Vol] 24 mg/dL Normal [facility] Program Manager Comment on above: Performed By: #### C BCAD, CMP, LIPD #### [facility] [address] [place], [place] [id number] Cholesterol.total/Chol esterol in HDL [Mass ratio] 3 {ratio} Normal [facility] Comment on above: Performed By: #### C BCAD, CMP, LIPD #### [facility] [address] [place], [place] [id number] Triglyceride [Mass/Vol] 121 mg/dL Normal 30-150 [facility] Program Manager Comment on above: Result Comment: TRIG ATPIII CLASSIFICATIONS TRIG less than 150 mg/dl Normal TRIG 150-199 mg/dl Borderline High TRIG 200-500 mg/dl High TRIG greather than 500 mg/dl Very High Performed By: #### C BCAD, CMP, LIPD #### [facility] [address] [place], [place] [id number] PSA SCREEN (MEDICARE)on 12-30 TPSA 5.940 ng/mL High <4.000 [facility] Program Manager Comment on above: Result Comment: PSA Test Method: ECLIA/Gilberto e 601 Performed By: #### P #### [facility] [address] [facility] [place] [id number] Vital Signs Date Time Vital Sign Value Performing Clinician Facility 08-24-2022 10:30-0400 Body height 177.8 cm Orlando Reedgloria Other [facility] Other 08-24-2022 10:30-0400 Body mass index (BMI) [Ratio] 22.67 kg/m2 Orlando Reedgloria Other [facility] Other 08-24-2022 10:30-0400 Body weight 71.67 kg Orlando Valencia Other [facility] Other 08-24-2022 10:30-0400 Diastolic blood pressure 86 mm[Hg] Orlando Dittgloria Other [facility] Other 08-24-2022 10:30-0400 Systolic blood pressure 118 mm[Hg] Orlando Reedgloria Other [facility] Other 05-03-2022 12:15-0400 Body temperature 98.2 [degF] Mayda Castro MD Work Phone: [facility] 05-03-2022 12:15-0400 Diastolic blood pressure 89 mm[Hg] Mayda Castro MD Work Phone: [facility] 05-03-2022 12:15-0400 Heart rate 77 /min Mayda Castro MD Work Phone: [facility] 05-03-2022 12:15-0400 Respiratory rate 15 /min Mayda Castro MD Work Phone: [facility] 05-03-2022 12:15-0400 SaO2% (BldA) [Mass fraction] 98 % Mayda Castro MD Work Phone: [facility] [employer] 05-03-2022 12:15-0400 Systolic blood pressure 115 mm[Hg] Mayda Castro MD Work Phone: [facility] [employer] 05-03-2022 10:06-0400 Body height 177.8 cm Mayda Castro MD Work Phone: [facility] [employer] 05-03-2022 10:06-0400 Body mass index (BMI) [Ratio] 22.96 kg/m2 Mayda Castro MD Work Phone: [facility] [employer] 05-03-2022 10:06-0400 Body weight 72.58 kg Mayda Castro MD [facility] 04-23-2022 08:05-0400 SaO2% (BldA) [Mass fraction] 95 % Sta 1 [facility] 04-23-2022 08:02-0400 Body height 177.8 cm Sta 1 [facility] [employer] 04-23-2022 08:02-0400 Body mass index (BMI) [Ratio] 22.96 kg/m2 Sta 1 [facility] 04-23-2022 08:02-0400 Body temperature 97.7 [degF] Sta [facility] 04-23-2022 08:02-0400 Body weight 72.58 kg Sta 1 [employer] 04-23-2022 08:02-0400 Diastolic blood pressure 68 mm[Hg] Sta 1 [facility] [employer] 04-23-2022 08:02-0400 Heart rate 100 /min Sta 1 [facility] [employer] 04-23-2022 08:02-0400 Respiratory rate 24 /min Sta 1 [facility] [employer] 04-23-2022 08:02-0400 Systolic blood pressure 132 mm[Hg] Sta 1 [facility] Encounters Encounter Date Encounter Type Care Provider [...] 08-24-2022 End: 08-24-2022 ambulatory Orlando Valencia Other [place] Other Start: 08-24-2022 [facility] visit new patient Orlando Valencia [facility] Start: 08-04-2022 End: 08-05-[address] DOCTOR GARZON Facility:[facility] Start: 07-26-2022 End: 07-27-[address] RADAMES MART Facility:[facility] Start: 05-03-2022 End: 05-03-2022 [facility] Start: 05-03-2022 End: 05-03-2022 Subsequent hospital visit by physician Mayda Castro MD Work Phone: [facility] Comment on above: PSA elevation Start: 04-23-2022 End: 04-26-2022 ambulatory MAYDA Donald [facility] Start: 04-23-2022 End: 04-28-2022 ambulatory RADAMES B MART [facility] Start: 04-23-2022 End: 04-25-2022 Subsequent hospital visit by physician Rina X-Ray [facility] Comment on above: Arrived Start: 04-23-2022 End: 04-27-2022 Subsequent hospital visit by physician Rina Pat Rm 1 [facility] PRE-ADMIT TESTING Procedures Date Procedure Procedure Detail Performing Clinician Start: 04-04-[address] DOCTOR GARZON Comment on above: Performed By: #### P SAD #### [facility] [address] [place] [address] Dr. Mireya Tabor Start: 02-05-[address] DOCTOR GARZON Comment on above: Performed By: #### P SAD #### [facility] [address] [place] [address] Dr. Mireya Tabor Start: 08-04-[address] DOCTOR GARZON Comment on above: Performed By: #### P SAD #### [facility] [address] [place] [address] Dr. Mireya Tabor Start: 04-23-2022 Radiologic exam ches t 2 views Fish Rider MD Work Phone: Start: 04-23-2022 Electrolyte panel Fish Rider MD Work Phone: Start: 04-23-2022 Ecg routine ecg w/le ast 12 lds w/i&r Fish Rider MD Work Phone: Start: 03-04-2022 Colonoscopy Irina OBRIEN Work Phone: Plan of Treatment Date Care Activity Detail Author Start: 03-04-2032 Screening for malign ant neoplasm of colon [facility] Start: 07-29-2025 Influenza vaccination Influenza Vacc ine (#1) [facility] Start: 02-07-2025 End: 02-07-2025 Patient encounter procedure 02/07/2025 1:00 PM EDT Office Visit [facility] [address] [place] [id number] Irina Bowman PA [address] [place] [address] Arrived [facility] Comment on above: Arrived Start: 07-29-2024 Influenza vaccination Influenza Vacc ine (#1) [facility] Start: 01-25-2023 Lipid panel Lipids [facility] Start: 07-29-2022 Influenza vaccination Flu vacc ine (Season Ended) [facility] Start: 05-03-2022 End: 05-03-2022 Admission to same day surgery center 05/03/2022 Surgery IP Unit Mayda Castro MD [address] [place] [address] FUSION PROSTATE BIOPSY WITH ULTRASOUND MRI WAS AT [facility] ON 03/12 [facility] Comment on above: FUSION PROSTATE BIOP SY WITH ULTRASOUND MRI WAS AT [facility] ON 03/12 Start: 05-03-2022 End: 05-03-2022 Anesthesia consultation 05/03/2022 Anesthesia Event IP Unit Fish Rider MD [address] [place] [address] [facility] Start: 05-03-2022 Subsequent hospital visit by physician 05/03/2022 Hospital Encounter IP Unit Mayda Castro MD [address] [place] [address] [facility] Start: 05-03-2022 End: 05-03-2022 Biopsy prostate incisional any approach [facility] Start: 05-31-2020 Pneumococcal 65+ yea rs Vaccine (2 - PCV) Pneumococcal 65+ years Vaccine (2 - PCV) [facility] Start: 2017 Abdominal aortic aneurysm screening AAA screen [facility] Start: 2002 Shingles vaccine (1 of 2) Shingles vaccine (1 of 2) [facility] Start: 1997 Screening for malign ant neoplasm of colon [facility] Start: 1992 Prostate specific antigen measurement Prostate Specific Antigen (PSA) Screening or Monitoring [facility] Start: 1971 DTaP/Tdap/Td vaccine (1 - Tdap) DTaP/Tdap/Td vaccine (1 - Tdap) [facility] Start: 1970 Hepatitis C screening Hepatitis C sc reen [facility] [employer] Start: 1964 Depression Screen Depression Screen [facility] [employer] Start: 1952 Annual Wellness Visi t (AWV) Annual Wellness Visit (AWV) [facility] Start: 1952 Screening for malign ant neoplasm of colon [facility] Continuous pulse oximetry Pulse oximetry, continuous Respiratory Care Routine Every 4hr until discontinued starting 05/04/2022 [facility] Work Phone: Comment on above: Every 4hr until disc ontinued starting 05/04/2022 Surgical Pathology Surgical Path ology Lab Routine PSA elevation Release Upon Ordering for 1 Occurrences starting 05/03/2022 [facility] Phone: Comment on above: Release Upon Orderin g for 1 Occurrences starting 05/03/2022 End: 05-03-2022 SURGICAL PATHOLOGY REPORT SURGICAL PATHOLOGY REPORT Lab Routine Once for 1 Occurrences starting 05/03/2022 until 05/03/2022 [facility] Work Phone: Comment on above: Once for 1 Occurrenc es starting 05/03/2022 until 05/03/2022 Immunizations Immunization Date Immunization Notes Care Provider [facility] 02-03-2024 Influenza, High-dose Seasonal, Quadrivalent, Preservative Free Irina OBRIEN Work Phone: [facility] 02-03-2024 Pneumococcal Conjuga te PCV 20 Irina OBRIEN Work Phone: [facility] 02-03-2024 influenza virus vacc ine, unspecified formulation Irina OBRIEN Work Phone: [facility] 10-19-2022 Influenza, Seasonal, Quadrivalent, Adjuvanted Irina OBRIEN Work Phone: [facility] 02-12-2022 Influenza, Seasonal, Quadrivalent, Adjuvanted Irina OBRIEN Work Phone: [facility] 02-02-2022 COVID-19, Pfizer Pur ple top, DILUTE for use, 12+ yrs, 30mcg/0.3mL dose Sta Rm [facility] [employer] Work Phone: 01-29-2021 COVID-19, Pfizer Pur ple top, DILUTE for use, 12+ yrs, 30mcg/0.3mL dose Sta Rm [facility] [employer] Work Phone: 01-08-2021 COVID-19, Pfizer Pur ple top, DILUTE for use, 12+ yrs, 30mcg/0.3mL dose Sta Rm [facility] [employer] Work Phone: 09-20-2020 influenza, high dose seasonal, preservative-free Irina Hemmer PA Work Phone: [facility] 09-20-2020 Influenza, High-dose Seasonal, Quadrivalent, Preservative Free Irina Hemmer PA Work Phone: [facility] 06-25-2020 zoster vaccine recombinant Irina Hemmer PA Work Phone: [facility] 01-28-2020 pneumococcal polysaccharide vaccine, 23 valent Irina Hemmer PA Work Phone: [facility] 01-28-2020 zoster vaccine recombinant Irina Hemmer PA Work Phone: [facility] 10-31-2019 influenza, high dose seasonal, preservative-free Irina Hemmer PA Work Phone: [facility] 10-31-2019 Influenza, High-dose Seasonal, Quadrivalent, Preservative Free Irina Hemmer PA Work Phone: [facility] 05-31-2019 pneumococcal polysaccharide vaccine, 23 valent Irina Hemmer PA Work Phone: [facility] 09-29-2017 influenza, high dose seasonal, preservative-free Irina Hemmer PA Work Phone: [facility] 09-14-2016 influenza, injectabl e, quadrivalent, contains preservative Irina Hemmer PA Work Phone: [facility] 09-14-2016 influenza, injectabl e, quadrivalent, preservative free Irina Hemadrien PA Work Phone: [facility] 09-06-2015 influenza virus vacc ine, unspecified formulation Irina Hemmer PA Work Phone: [facility] 08-28-2014 influenza virus vacc ine, unspecified formulation Irina Hemmer PA Work Phone: [facility] 11-08-2013 influenza virus vacc ine, unspecified formulation Irina Hemmer PA Work Phone: [facility] 10-28-2012 pneumococcal polysaccharide vaccine, 23 valent Irina Hemmer PA Work Phone: [facility] 02-27-1992 tetanus toxoid, redu franchesca diphtheria toxoid, and acellular pertussis vaccine, adsorbed Irina Hemmer PA Work Phone: [facility] Healthcare Payers Date Payer Category Payer Private Health Insurance [facility] [id number] 2017 Medicare MEDICARE [id number] 1959 Medicare [id number] 1959 Private Health Insurance [id number] 1952 Unknown [id number] .177 1952 Unknown [id number] .177 1952 Unknown [id number] [id number] .177 1952 Unknown [id number] [id number] .593 1952 Unknown [id number] [id number] .593 1952 Unknown [id number] [id number] .593 1952 Unknown [id number] [id number] .593 1952 Unknown [id number] [id number] .1259 1952 Unknown [id number] [id number] .1259 1952 Unknown [id number] [id number] .1259 1952 Unknown [id number] [id number] .718 1950 Unknown [id number] [id number] .718 1950 Unknown [id number] .718 Social History Date Type Detail Facility Start: 04-23-2022 End: 06-15-2023 Tobacco smoking status HIIS Ex-smoker [facility] Phone: End: 11-28-2006 History of tobacco use Current smoker [facility] Phone: Start: 04-23-2022 End: 06-15-2023 Tobacco use and exposure Smokeless tobacco non-user [facility] Phone: Start: 04-23-2022 End: 02-07-2025 Alcohol intake Current drinker of alcohol (finding) [facility] Phone: Start: 04-23-2022 End: 02-07-2025 Alcohol intake [facility] Phone: Start: 1950 Sex Assigned At Not on file B ON [email or web address] Phone: Start: 04-23-2022 End: 05-03-2022 Exposure to SARS-CoV-2 (event) Not sure [facility] Phone: Start: 05-23-2024 End: 02-07-2025 Sex Assigned At [facility] [email or web address] Other History of tobacco use Cigarette Smoker [facility] Start: 06-21-2023 Alcohol Comment caffeine 1-2 c ups per day [facility] Clinical Notes 04-23-2022 to 07-31-2025 Telephone Encounter - Lolita Mccoy - 05/29/2025 1:52 PM EDTTelephone Encounter - Lolita Allison - 05/29/2025 1:52 PM EDTTelephone Encounter - Lolita Allison - 05/20/2025 9:28 AM EDT Note Date & Type Note Facility 07-31-2025 Note - From: Drea Chopra (Urology Clinical Pool ([facility] Sent: 07/31/2025 14:24:29 EDT Subject: General Message Caller Name: BRIAN QUEZADA; Caller Number: H , M Pt called stated had not received medication Orgovyx sent to [facility]. Spoke with Pharmacist Arlette, who stated she was waiting for insurance coverage ID # and pt should be receiving medication soon by delivery. Pt called and notified. [facility] 07-17-2025 Note - From: Drea Chopra Sent: 07/17/2025 08:14:01 EDT Subject: General Message Caller Name: BRIAN QUEZAAD; Caller Number: H , M Refill request Orgovyx (Relugolix) 120mg tablet, 1 tablet orally once a day, #30, 11 refills. Sent to [facility] Needs to be seen in office in 3-4 months. Pt next appointment must kept for more refills per Dr. Castro. [facility] 05-29-2025 Telephone encounter Note Form atting of this note might be different from the original. Lvm 3rd attempt to contact no contact letter sent [facility] 05-29-2025 Miscellaneous Notes Formattin g of this note might be different from the original. Lvm 3rd attempt to contact no contact letter sent Patient stated they will call back and schedule within the next couple of days Kenyt is overdue for sandeep middleton trying to schedule appt documented in this encounter [facility] 05-20-2025 Telephone encounter Note Form atting of this note might be different from the original. Patient stated they will call back and schedule within the next couple of days [facility] 05-13-2025 Telephone encounter Note Form atting of this note might be different from the original. Bryson is overdue for mawv - lvm trying to schedule appt [facility] 08-24-2022 Evaluation note Encounter Date Diagnosis Assessment Notes Jul, Abdominal distension (ICD-10 - R14.0) Jul, Constipation (ICD-10 - K59.00) OBTAIN COLONOSCOPY FROM [facility] MAY USE LINZESS NEEDED F/U PRN [facility] Other 06-06-2022 Hospital Discharge instructions* Instructions* Mayda [...] Mayda Castro MD documented in this encounterBON [employer] Work Phone: 1(290) 523-377305-27-2022 History of Present illness Narrative* Erin Mclaughlin, FAITH - PARKING ENFORCEMENT TECHNICIAN - 04/23/2022 8:00 AM EDT PAT Progress Note Pt Name: Brian Quezada Birthdate: 1950 Date of evaluation: 04/23/2022 [x] Called to PAT. I spoke to the patient, Brian Quezada, a 71 y.o. male, who is scheduled for an upcoming FUSION PROSTATE BIOPSY WITH ULTRASOUND MRI WAS AT [facility] ON 03/12 by Mayda Castro MD [...] ms QTc Calculation (Bazett) 410 ms P [place] 88 degrees R [place] 42 degrees T [place] 81 degrees CBC Collection Time: 04/23/22 9:11 [...] 04/23/2022 at 1:55 PM [facility] [email or web address] Phone: evaluation note* Diagnosis PSA elevation Elevated prostate specific antigen (PSA) documented in this encounter [facility] [email or web address] Phone: History general Narrative - Reported* Type [...] History wisdom teeth Hospitalization History see above [facility] Other Reason for visit Narrative* Auth/Cert Specialty Diagnoses / Procedures Referred By Dat yadav Referred To Contact Diagnoses Elevated PSA DX ELEVATED PSA Procedures SD BIOPSY OF PROSTATE,INCISIONAL FUSION PROSTATE BIOPSY WITH ULTRASOUND MRI WAS AT [facility] ON 03/12 Mayda Castro MD [address] [facility] [address] [place] [address] [facility] [address] [place] [address] Referral ID Status Reason Start Date Expiration Date Visits Re quested Visits Authorized [facility] Work Phone: Summary Purpose Family History No [...] section and content) DATE CREATED AUTHOR 02/05/2022 [facility] dical Specialist DATE CREATED AUTHOR AUTHOR'S ORGANIZ ATION 05/07/2022 [facility] DATE CREATED AUTHOR AUTHOR'S ORGANIZ ATION 04/08/2023 [facility] pital DATE CREATED AUTHOR AUTHOR'S ORGANIZ ATION 02/10/2025 [facility] dical Specialists EPIC DATE CREATED AUTHOR AUTHOR'S ORGANIZ ATION 08/02/2025 [facility] Care Teams (unrecognized sec tion and content) 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 Relationship Specialty Start Date End Date Radames Mart MD [address] [facility] [address] [place] [address] PCP - General Internal Medicine 04/23/22 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 Relationship Specialty Start Date End Date Radames Mart MD [address] [facility] [address] [place] [address] PCP - General Internal Medicine 04/23/22 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 Relationship Specialty Start Date End Date Radames Mart MD [address] [place] [address] PCP - General Internal Medicine 04/23/22 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 Relationship Specialty Start Date End Date Radames Mart MD [address] [place] [address] PCP - ACO Reach 04/21/23 Radames Mart MD [address] [place] [address] PCP - General Internal Medicine 06/16/23 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 Relationship Specialty Start Date End Date Radames Mart MD [address] [place] [address] PCP - ACO Reach 04/21/23 Radames Mart MD [address] [facility] [address] [place] [address] PCP - General Internal Medicine 06/16/23 Scheduled Active and Recently Administ ered Medications (unrecognized section and content) Medication Order 05/01/2022 05/02/2022 05/03/2022 ceFAZolin (ANCEF) 2000 mg in dextrose 5 % 50 mL IVPB (COMPLETED) 2,000 mg, IntraVENous, ONCE, 1 dose, On Tue05/03/22 at 1130, Antimicrobial Indications: Surgical Prophylaxis, Pre-op (day of surgery), STAT 1120 (Given - Provid er: Luna Barfield, BONE DRIER OPERATOR - PURIFYING PLANT OPERATOR) sodium chloride flush 0.9 % injection 5-40 [...] (NoRateChange - Provider: Luna Barfield APRN - PURIFYING PLANT OPERATOR)1133 (Rate/Dose Change - Provider: FAITH Stanton CRNA)1215 [...] BE BASED ON THE PRIMARY CLINICAL RECORDS. [employer] provides no warranty or guarantee of the accuracy or completeness of information in this document.
--- NOTE | 2025-09-07 04:34 | ED.GENADUL1 ---
HPI HPI - General Adult General Chief complaint: Shortness of Breath/Dyspnea Stated complaint: RESPIRATORY DISTRESS Time Seen by Provider: 09/06/25 22:11 Source: patient Mode of arrival: ambulance Limitations: no limitations History of Present Illness HPI narrative: Patient is a 75-year-old male, history significant for COPD on 3 L home oxygen and CAD s/p coronary stenting, presenting to the emergency department for evaluation of shortness of breath. The patient has been short of breath for the last 24 hours, worsening tonight. He states he has chronic lung problems secondary to agent orange. He no longer smokes. Other than feeling short of breath, he denies any other symptoms. He denies URI symptoms such as cough, congestion. He denies chest pain. No history of DVT/PE, hemoptysis, or recent surgical seizures or immobilizations. Denies being on anticoagulation, though he is on Plavix for his coronary stents. Related Data Home Medications ?Medication ?Instructions ?Recorded ?Confirmed albuterol sulfate 2.5 mg/3 mL 2.5 mg inhalation Q6H PRN 09/06/25 09/06/25 (0.083 %) solution for nebulization shortness of breath or wheezing budesonide 160 mcg-glycopyr 9 2 inh inhalation BID 09/06/25 09/06/25 mcg-formot 4.8 mcg/actuation HFA inhaler (Breztri Aerosphere) clopidogrel 75 mg tablet (Plavix) 75 mg PO DAILY 09/06/25 09/06/25 doxazosin 2 mg tablet (Cardura) 2 mg PO DAILY 09/06/25 09/06/25 ezetimibe 10 mg-simvastatin 40 mg 1 tab PO DAILY 09/06/25 09/06/25 tablet (Vytorin) ipratropium 0.5 mg-albuterol 3 mg 3 ml inhalation Q4H PRN shortness 09/06/25 09/06/25 (2.5 mg base)/3 mL nebulization of breath or wheezing soln linaclotide 145 mcg capsule 145 mcg PO DAILY 09/06/25 09/06/25 mirtazapine 30 mg tablet 30 mg PO HS 09/06/25 09/06/25 omeprazole 20 mg capsule,delayed 20 mg PO .unknown 09/06/25 09/06/25 release Allergies Allergy/AdvReac Type Severity Reaction Status Date / Time No Known Drug Allergies Allergy Verified 09/06/25 22:23 Review of Systems ROS Status of ROS 10 or more systems reviewed and unremarkable except as noted in history and below PFSH PFSH Social History Little interest or pleasure in doing things: not at all Feeling down, depressed, or hopeless: not at all Exam Narrative Exam Narrative: CONSTITUTIONAL: In mild distress secondary to shortness of breath, speaking in truncated sentences, answering questions and following commands appropriately SKIN: Was warm and dry. EYES: No scleral icterus. EARS, NOSE, THROAT: No JVD. RESPIRATORY: Bilateral expiratory wheezing. Positive use of accessory muscles and dyspneic. CARDIOVASCULAR: Tachycardic rate and regular rhythm. There is no S3, S4, murmur, rub. GASTROINTESTINAL: Abdomen was soft, non-tender, and non-distended. There is no guarding or rebound tenderness MUSCULOSKELETAL: There was no lower extremity edema, erythema, or tenderness. NEUROLOGIC: Patient is awake and alert. Facies were symmetrical. Constitutional Vital Signs, click to edit/add: Last Vital Signs Temp 97.7 F 09/07/25 00:21 Pulse 128 H 09/07/25 04:32 Resp 28 H 09/07/25 00:21 BP 112/86 09/07/25 00:21 Pulse Ox 94 L 09/07/25 04:32 O2 Del Method Nasal Cannula 09/07/25 03:20 O2 Flow Rate 4 09/07/25 03:20 FiO2 40 09/07/25 00:21 Course Vital Signs Vital signs: Vital Signs Pulse Rate 101 H 09/06/25 22:11 Pulse Oximetry 96 09/06/25 22:11 Fraction of Inspired Oxygen 40 09/06/25 22:11 Temperature 97.7 F 09/07/25 00:21 Pulse Rate 128 H 09/07/25 04:32 Respiratory Rate 28 H 09/07/25 00:21 Blood Pressure 112/86 09/07/25 00:21 Pulse Oximetry 94 L 09/07/25 04:32 Oxygen Delivery Method Nasal Cannula 09/07/25 03:20 Oxygen Delivery Flow Rate 4 09/07/25 03:20 Fraction of Inspired Oxygen 40 09/07/25 00:21 Medical Decision Making [facility] Narrative Medical decision making narrative: Patient is a 75-year-old male, history significant for COPD on 3 L home O2, presented to the emergency department via EMS for shortness of breath over the last 24 hours. Vital signs per EMS are significant for hypoxia to 74% on room air. On arrival to our ED, the patient was placed on the private tutor that demonstrated sinus tachycardia by my interpretation. He was tachypneic with significant use of accessory muscles. He was transition to BiPAP 16/8, 40%. Saturations improved to 94% and his work of breathing started to room as well. Differential diagnosis includes COPD exacerbation, pneumonia, pneumothorax, PE, interstitial lung disease, ACS, or other electrolyte/metabolic derangement. IV was established and laboratory studies were obtained. CT angiogram was ordered. He was given nebulized albuterol/ipratropium and IV Solu-Medrol. Laboratory studies were significant for mild anemia. No leukocytosis. No significant electrolyte or metabolic derangement. He has a chronically elevated bicarb secondary to his history of COPD. No lactic acidosis. No transaminitis or hyperbilirubinemia. Troponin and BNP not elevated. COVID and flu were negative. 12 Lead EKG: Sinus tachycardia at a rate of 115. Normal axis. No ST segment elevations. QRS, [place], and QTc interval within normal limits. Final impression: Sinus tachycardia without evidence of acute myocardial ischemia CT angiogram independently reviewed and interpreted myself and radiology was negative for acute PE, pneumothorax, or pneumonia. On reevaluation, the patient is awake and alert. He states he feels significant improved since his arrival to the ED. His work of breathing is improved. I did trial him off of BiPAP, however quickly desaturated and required 6 L of nasal cannula to maintain his saturation to 94%. Therefore, he was placed back on BiPAP. Arterial blood gas after 3 hours of BiPAP demonstrated a normal pH, elevated pCO2 (which may be chronic with his history of COPD), normal ABG O2 saturation, slightly low PaO2. I discussed the patient with hospitalist, Dr. Gomez, who accepted the patient to his service for further care. FINAL IMPRESSION: #Acute hypoxic respiratory failure secondary to COPD exacerbation DISPOSITION: Admitted to the hospital CONDITION: Fair Medical Records Medical records reviewed: Yes I reviewed the patient's medical records Lab Data Lab results reviewed: Yes I reviewed the patient's lab results Labs: Lab Results 09/06/25 09/06/25 09/07/25 Range/Units 22:14 23:20 02:20 WBC 9.6 (4.0-11.0) 10^3/uL RBC 4.36 L (4.70-6.10) 10^6/uL Hgb 12.8 L (14.0-18.0) g/dL Hct 41.0 L (42.0-54.0) % MCV 94.0 (80.0-94.0) fL MCH 29.4 (25.9-34.0) pg MCHC 31.2 (29.9-35.2) g/dL RDW 13.2 (11.0-15.0) % Plt Count 190 (150-450) 10^3/uL MPV 10.1 (9.5-13.5) fL Neut % (Auto) 71.3 (43.0-75.0) % Lymph % (Auto) 18.5 L (20.5-60.0) % [place] % (Auto) 7.9 (1.7-12.0) % Eos % (Auto) 1.6 (0.9-7.0) % Baso % (Auto) 0.5 (0.2-2.0) % Neut # (Auto) 6.9 H (1.4-6.5) 10^3/uL Lymph # (Auto) 1.8 (1.2-3.8) 10^3/uL [place] # (Auto) 0.8 (0.3-0.8) 10^3/uL Eos # (Auto) 0.2 (0.0-0.7) 10^3/uL Baso # (Auto) 0.1 (0.0-0.1) 10^3/uL Abs Immat Gran (auto) 0.02 (0.00-0.03) 10^3/uL Imm/Tot Granulo (auto) 0.2 (0.0-0.5) % Puncture Site Rr ABG pH 7.385 (7.350-7.450) ABG pCO2 52.3 H* (35.0-45.0) mmHg ABG pO2 77.9 L (80.0-100.0) mmHg ABG HCO3 31.2 H (22.0-26.0) mmol/L ABG O2 Saturation 96.8 % ABG Base Excess 6.2 H (-2.0-2.0) mmol/L Hemant Test Positive (POSITIVE) FiO2 40 % BiPAP 16/8 Sodium 143 (136-145) mmol/L Potassium 4.4 (3.5-5.1) mmol/L Chloride 102 (98-107) mmol/L Carbon Dioxide 36.7 H (21.0-32.0) mmol/L Anion Gap 8.7 BUN 17.0 (7.0-18.0) mg/dL Creatinine 0.98 (0.70-1.30) mg/dL Est GFR ( Amer) >60 (>=60 mL/min/1.73m^2) Est GFR (Non-Af Amer) >60 (>=60 mL/min/1.73m^2) BUN/Creatinine Ratio 17.3 Glucose 115 H (74-106) mg/dL Lactate 1.1 (0.4-2.0) mmol/L Calcium 9.2 (8.5-10.1) mg/dL Total Bilirubin 0.3 (0.2-1.0) mg/dL AST 16 (15-37) U/L ALT 19 (16-63) U/L Alkaline Phosphatase 71 (46-116) U/L Troponin I High Sens 5.4 (4.0-76.1) pg/mL NT-Pro-B Natriuret Pep 91.0 (<=900.0) pg/mL Total Protein 7.5 (6.4-8.2) g/dL Albumin 3.1 L (3.4-5.0) g/dL Globulin 4.4 g/dL Albumin/Globulin Ratio 0.7 Influenza Type A Ag Negative Influenza Type B Ag Negative SARS-CoV-2 Ag (CV2AG) Negative (NEGATIVE) Imaging Data CT angio chest: Attestation: I personally reviewed and interpreted this imaging study as follows: Radiologist's impression: ITS Impressions Chest X-Ray 09/06/25 22:11 IMPRESSION: Hazy right lung base opacity. Follow-up to resolution recommended. Impression dictated by: Atul Locke M.D. 09/06/2025 10:35 PM Dictation Location: [place] [id number] Electronically authenticated by: [id number] Y Date: 09/06/2025 22:35 ECG Data Attestation: I personally reviewed and interpreted this ECG as follows: Critical Care Time Critical Care Time Critical Care Time: Yes Total Critical Care Time: 32 Attestation: Due to a high probability of clinically significant, life threatening deterioration, the patient required my highest level of preparedness to intervene emergently and I personally spent this critical care time directly and personally managing the patient. This critical care time included obtaining a history; examining the patient; pulse oximetry; ordering and review of studies; arranging urgent treatment with development of a management plan; evaluation of patient's response to treatment; frequent reassessment; and, discussions with other providers. This critical care time was performed to assess and manage the high probability of imminent, life-threatening deterioration that could result in multi-organ failure. It was exclusive of separately billable procedures and treating other patients and teaching time. Discharge Plan Discharge Chief Complaint: Shortness of Breath/Dyspnea Clinical Impression: Hypoxic respiratory failure, COPD exacerbation Patient Disposition: Admitted As Inpatient Time of Disposition Decision: 04:36 Condition: Fair
[2025-09-07] MEDS: METHYLPREDNISOLONE SOD SUCC PF 40 MG/ML VIAL IVP ×3 (06:48→23:53)
[2025-09-07] MEDS: DILTIAZEM HCL 60 MG TABLET PO (06:48)
[2025-09-07] MEDS: DOXAZOSIN MESYLATE 2 MG TABLET PO (08:05)
[2025-09-07] MEDS: ENOXAPARIN SODIUM 80 MG/0.8 ML SYRINGE 75 MG SUBQ (08:05)
[2025-09-07] MEDS: CLOPIDOGREL BISULFATE 75 MG TABLET PO (08:05)
[2025-09-07] MEDS: ATORVASTATIN CALCIUM 20 MG TABLET PO (08:06)
[2025-09-07] MEDS: EZETIMIBE 10 MG TABLET PO (08:06)
[2025-09-07] MEDS: PANTOPRAZOLE SODIUM 40 MG TABLET.DR PO (08:06)
[2025-09-07] MEDS: IPRATROPIUM/ALBUTEROL SULFATE 3 ML AMPUL.NEB IH ×3 (09:04→20:36)
--- NOTE | 2025-09-07 10:58 | P.HP_ITS ---
HPI H&P: HPI History of Present Illness Chief complaint: exacerbation COPD Narrative: Mr. Donovan is a 75-year-old gentleman with a known diagnosis of COPD on oxygen. Came in with progressive cough, wheezing and congestion. Cough productive to whitish milky sputum. No fever or chills. No chest pain or palpitation. No abdominal pain. Patient has oxygen at home. He quit smoking 10 years ago after smoking for 40 years. He reported drinking alcohol when asked however he is very. He said sometimes he drinks 4-5 beer daily and sometimes only 1 or 2. Opioid HPI Opioid Management Most Recent Pain and Opioid Data: Last Pain Assessment Today, 05:00 Last ORT Total Score 0 Today, 04:32 Last ORT Risk Category Low Risk Today, 04:32 PFSH PFSH Medical History (Updated 09/07/25 @ 06:06 by Koko Garza RN) Cancer ?C80.1 - Malignant (primary) neoplasm, unspecified (ICD-10) Family History (Updated 09/07/25 @ 06:06 by Koko Garza RN) Son No problems noted. Sister Cancer Sister Cancer Stroke Mother Myocardial infarct Father Myocardial infarct Social History (Updated 09/07/25 @ 06:07 by Koko Garza RN) Within the past year, how often did you have a drink containing alcohol: never Within the past year, how often did you have six or more drinks on one occasion: never Score interpretation: A score less than 4 is consistent with normal alcohol consumption. 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 Known occupational exposures/hazards: Yes Highest level of school completed/degree received: GED or equivalent Are you now , , , , never or living with a partner: Little interest or pleasure in doing things: not at all Feeling down, depressed, or hopeless: not at all Meds Home Medications and Allergies Home Medications ?Medication ?Instructions ?Recorded ?Confirmed ?Type albuterol sulfate 2.5 mg/3 mL 2.5 mg inhalation Q6H DC N 09/06/25 09/06/25 History (0.083 %) solution for nebulization shortness of breat h or wheezing budesonide 160 mcg-glycopyr 9 2 inh inhalation BID 09/2109/06/25 History mcg-formot 4.8 mcg/actuation HFA inhaler (Breztri Aerosphere) clopidogrel 75 mg tablet (Plavix) 75 mg PO DAILY 09/0609/06/25 History doxazosin 2 mg tablet (Cardura) 2 mg PO DAILY 09/06/25 09/06/25 History ezetimibe 10 mg-simvastatin 40 mg 1 tab PO DAILY 09/0609/06/25 History tablet (Vytorin) ipratropium 0.5 mg-albuterol 3 mg 3 ml inhalation Q4H PRN shortness 09/06/25 09/06/25 History (2.5 mg base)/3 mL nebulization of breath or wheezing soln linaclotide 145 mcg capsule 145 mcg PO DAILY 09/06/25 09/06/25 History mirtazapine 30 mg tablet 30 mg PO HS 09/06/25 5 History omeprazole 20 mg capsule,delayed 20 mg PO .unknown 09/2109/06/25 History release Allergies Allergy/AdvReac Type Severity Reaction Status Date / Time No Known Drug Allergies Allergy Verified 09/06/25 22:23 Exam Narrative Exam Narrative: [pt is awake and alert. oriented to place, time and person, moderate respiratory distress. Cachectic and frail in appearance. HEENT: [place] conjunctiva and NL buccal mucosa. Bitemporal muscle wasting. Neck: Supple, no tenderness Endocrine: No Thyromegaly. Vascular: No JVD or carotid bruit. Lymphatic: No cervical lymphadenopathy. Chest: Bilateral wheezing or rhonchi. Heart regular and tachycardic. Abd: Soft, no tenderness, no rebound and no rigidity. Increase abd girth therefore clinically I could not exclude the possibility of intra abd mass or organomegaly. LE: No cyanosis or clubbing, no varices or edema. Upper and lower extremities muscle wasting atrophy. Neuro: A A O. Nl speech, comprehension and attention. Nl and symetrical motor and tone examination through out. []] Constitutional Vital Signs, click to edit/add: Last Vital Signs Temp 98.2 F 09/07/25 07:30 Pulse 80 09/07/25 10:00 Resp 20 09/07/25 09:06 BP 122/79 09/07/25 07:30 Pulse Ox 93 L 09/07/25 10:00 O2 Del Method Nasal Cannula 09/07/25 09:06 O2 Flow Rate 4 09/07/25 09:06 FiO2 40 09/07/25 00:21 Results Labs Labs: Short CBC 09/06/25 Range/Units 22:14 WBC 9.6 (4.0-11.0) 10^3/uL Hgb 12.8 L (14.0-18.0) g/dL Hct 41.0 L (42.0-54.0) % Plt Count 190 (150-450) 10^3/uL BMP 09/06/25 22:14 Sodium 143 Potassium 4.4 Chloride 102 Carbon Dioxide 36.7 H BUN 17.0 Creatinine 0.98 Glucose 115 H Calcium 9.2 Liver Function 09/06/25 Range/Units 22:14 Total Bilirubin 0.3 (0.2-1.0) mg/dL AST 16 (15-37) U/L ALT 19 (16-63) U/L Alkaline Phosphatase 71 (46-116) U/L Albumin 3.1 L (3.4-5.0) g/dL ABG ABG results: 09/07/25 02:20 ABG pH 7.385 ABG pCO2 52.3 H* ABG pO2 77.9 L ABG HCO3 31.2 H ABG O2 Saturation 96.8 ABG Base Excess 6.2 H Assessment and Plan Assessment and Plan (1) COPD exacerbation: (2) Hypoxic respiratory failure: Plan Acute COPD exacerbation. Basilar community-acquired pneumonia. Acute on chronic hypoxic respiratory failure. Acute on chronic hypercapnic respiratory failure. CTA showed extensive COPD, no pulmonary embolism. I reviewed CAT scan imaging. Patient has extensive upper lobe emphysema. Basilar infiltration. Start patient on albuterol, Atrovent, Solu-Medrol, ceftriaxone and doxycycline. Influenza and COVID are negative. Requested RSV. Other viruses such as adenovirus, parainfluenza, human [place] pneumo virus, others could not be tested at [place]. Thus far, patient is requiring high flow oxygen. Saturation drops to 88% on 6 L of oxygen. Patient may qualify for lung reduction surgery given the predominantly upper lobe severe emphysema. He does not follow-up with pulmonary. He may need the PFTs to assess the severity of his emphysema which I suspect is significant. Patient also is at risk having lung cancer. I would recommend the patient to have yearly low-dose radiation CAT scan of the chest to screen for lung cancer to be addressed by PCP. Alcohol consumption. Patient is vague about the amount of alcohol consumption he drinks. I suspect that the patient is minimizing his alcohol intake. I started patient on thiamine and folic acid. Thiamine intravenously 200 twice a day to reduce risk of having Warnicke encephalopathy. Cachexia, frailty, muscle wasting, failure to thrive, moderate protein calorie mentation. 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 Patient will likely require investigation for his cachexia and weight loss. This may include but not limited to cancer screening such as prostate exam, EGD, colonoscopy and others to be 100 in the outpatient setting. Meanwhile I would start patient on oral protein supplementation. Subtle hallucination. I suspect that this could be related to his hypoxemia and hypercapnia as well as decompensation of respiratory status I suspect that the patient may be having Warnicke or Korsakoff encephalopathy I started patient on thiamine intravenously as listed above. Requested CAT scan of the brain when patient is safe to go down to the department. Check urine tox screen. Tachycardia which is likely secondary to his respiratory compromise Hypertension I started patient Cardizem 60 mg 3 times daily with improvement of his heart rate. Continue to monitor and adjust accordingly. Discontinued alpha-jorge. CAD. History of cardiac stenting in 2005. Continue Plavix. No clinical evidence of ACS at this time. I suspect that the patient has had a progression of CAD since 2005.
[2025-09-07 11:12] LABS: Magnesium 2.0 mg/dL (1.8-2.4)
[2025-09-07] MEDS: DIAZEPAM 10 MG/2 ML SYRINGE 2 MG IV (11:23)
[2025-09-07] MEDS: THIAMINE HCL 200 MG/2 ML VIAL IVP ×2 (11:24→21:45)
[2025-09-07] MEDS: FOLIC ACID 50 MG/10 ML VIAL IVP (11:24)
--- NOTE | 2025-09-07 11:38 | PC.NURSE ---
patient very anxious and agitated. RR 36 with audible exp wheezes. Patient cont to hallucinate. Resp present. BIPAP applied
--- OUTSIDE RECORDS SUMMARY | 2025-09-07 12:11 | XMS_ITS | CCD ---
Author Organization [facility] Care Team Providers Care Senior Clinical Data Analyst Name Role Phone Radames Mart MD Primary [...] DR FIORE Primary Care Unavailable MISC, DR LUA Attending Unavailable Radames Mart MD Unavailable [phone] Radames Mart MD Primary Care Provider IRINA BOWMAN Attending Unavailable RADAMES MART Attending Unavailable RADAMES MART Attending Unavailable Mayda Castro Attending Unavailable RADAMES MART Primary Care Unavailable Mayda Castro Attending Unavailable RADAMES MART Primary Care Unavailable RADAMES MART Primary Care Unavailable Mayda Castro Attending Unavailable Allergies Allergy Classification Reported Allergen(s) Allergy Type Date of Onset Reaction(s) Facility (1 source) Theophylline Drug Allergy [facility] Other (1 source) Dust; Translations: [Dust] Propensity to adverse reactions (disorder) 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 TECHNIQUE: After obtaining the patient's consent, 25.5 mCi Technetium 99m MDP was injected intravenously. Images were obtained approximately two hours later. FINDINGS: ABNORMALITIES: No abnormal or suspicious radiotracer accumulation. OTHER: Negative. IMPRESSION: 1. No evidence of skeletal metastasis. Electronically authenticated by: BLAYNE YOUNG Date: 2022-07-26 14:47 Normal [facility] Surgical Pathologyon 022 Surgical Pathology [...] THE ADENOCARCINOMA IN THE INVOLVED BIOPSIES. FOR PROTOTYPE MACHINIST THE SLIDES OF SPECIMEN B WERE REVIEWED BY A SECOND PATHOLOGIST (FERNANDO). * THIS TEST WAS DEVELOPED AND ITS PERFORMANCE CHARACTERISTICS DETERMINED BY [facility] ANATOMIC PATHOLOGY. IT HAS NOT [...] SURGICAL PATHOLOGY CONSULTATION Patient Name: BRIAN QUEZADA [facility] Rec: [id number] Path Number: [id number] [facility] ANATOMIC PATHOLOGY [address] [place] [id number] Normal [facility] Comment on above: Performed By: #### P PPVS #### [employer] [address] [place] [address] Canvas Marker: Brady Wilkes MD EKG 12 LeadOrdered By: Ney Ferrara on 04-24-2022 Atrial Rate 91 BPM KATH[facility] [employer] Work Phone: P [place] 88 degrees [facility]ATH[facility] [employer] Work Phone: P-R Interval 158 ms [employer] Work Phone: Q-T Interval 334 ms [employer] Work Phone: QRS Duration 90 ms KATHLEEN [employer] Work Phone: QTc Calculation (Bazett) 410 ms [employer] Work Phone: R [place] 42 degrees KATHLEEN [employer] Work Phone: T [place] 81 degrees [employer] Work Phone: Ventricular Rate 91 BPM KATHLEEN [employer] Work Phone: [employer] Work Phone: EKG 12 Leadon 04-24-2022 Normal sinus rhythm Low voltage QRS Borderline ECG No previous ECGs available [facility] Ney Quezada MD - 04/24/2022 Normal sinus rhythm Low voltage QRS Borderline ECG No previous ECGs available [employer] Work Phone: BUN & Creatinineon 2 Creatinine [Mass/Vol] 0.93 mg/dL 0.70 - 1.20 mg/dL [employer] GFR >60 >60 mL/min [employer] GFR Non- >60 >60 mL/min [employer] GFR/1.73 sq M.predicted MDRD (S/P/Bld) [Vol rate/Area] [employer] Comment on above: Average GFR for 60-6 9 years old: 85 mL/min/1.73sq m Chronic Kidney Disease: <60 mL/min/1.73sq m Kidney failure: <15 mL/min/1.73sq m eGFR calculated using average adult body mass. Additional eGFR calculator available at: http://www.AdXpose/multiple_crcl_2012.htm Urea nitrogen (BldV) [Mass/Vol] 10 mg/dL 8 - 23 mg/dL [facility] BUN + Creatinineon 2 (cont.) Normal [facility] Comment on above: Result Comment: Aver age GFR for 60-69 years old: 85 mL/min/1.73sq m Chronic Kidney Disease: <60 mL/min/1.73sq m Kidney failure: <15 mL/min/1.73sq m eGFR calculated using average adult body mass. Additional eGFR calculator available at: http://www.AdXpose/multiple_crcl_2011.htm Performed By: #### C BC, BUNCRT, LYTE #### [facility] [address] [facility] [place] [address] Canvas Marker: Jean-Pierre Gallardo MD Creatinine [Mass/Vol] 0.93 mg/dL Normal 0.70-1.20 [facility] Comment on above: Performed By: #### C BC, BUNCRT, LYTE #### [facility] [address] [place] [address] Canvas Marker: Jean-Pierre Gallardo MD GFR, Amer >60 Normal >60 [facility] Comment on above: Performed By: #### C BC, BUNCRT, LYTE #### [facility] [address] [place] [address] Canvas Marker: Jean-Pierre Gallardo MD GFR,non Amer >60 Normal >60 [facility] Comment on above: Performed By: #### C BC, BUNCRT, LYTE #### [facility] [address] [place] [address] Canvas Marker: Jean-Pierre Gallardo MD Urea nitrogen [Mass/Vol] 10 mg/dL Normal 8-23 [facility] Comment on above: Performed By: #### C BC, BUNCRT, LYTE #### [facility] [address] [place] [address] Canvas Marker: Jean-Pierre Gallardo MD CBCon 04-23-2022 Erythrocyte distribution width (RBC) [Ratio] 11.9 % Normal 11.8-14.4 [facility] Comment on above: Performed By: #### C NICK BUNCRT, LYTE #### [facility] [address] [place] [address] Canvas Marker: Jean-Pierre Gallardo MD Hematocrit (Bld) [Volume fraction] 45.0 % Normal 40.7-50.3 [facility] Comment on above: Performed By: #### Allan ROMERO BUNCRT, LYTE #### [facility] [facility] [place] [address] Canvas Marker: Jean-Pierre Gallardo MD Hemoglobin (Bld) [Mass/Vol] 14.1 g/dL Normal 13.0-17.0 [facility] Comment on above: Performed By: #### Allan ROMERO BUNCRT, LYTE #### [facility] [address] [place], [place] [address]ia [facility] [place] [address] Canvas Marker: Jean-Pierre Gallardo MD MCH (RBC) [Entitic mass] 30.5 pg Normal 25.2-33.5 [facility] Comment on above: Performed By: #### Allan ROMERO BUNCRT, LYTE #### [facility] [place] [address] Canvas Marker: Jean-Pierre Gallardo MD MCHC (RBC) [Mass/Vol] 31.3 g/dL Normal 28.4-34.8 [facility] Comment on above: Performed By: #### C NICK BUNCRT, LYTE #### [facility] [place] [address] Canvas Marker: Jean-Pierre Gallardo MD MCV (RBC) [Entitic vol] 97.4 fL Normal 82.6-102.9 [facility] Comment on above: Performed By: #### C TONY ROMERO, LYTE #### [facility] [facility] [place] [address] Canvas Marker: Jean-Pierre Gallardo MD NRBC Automated 0.0 per 100 WBC Normal 0.0 [facility] Comment on above: Performed By: #### C NICK BUNCRT, LYTE #### [facility] [address] [place] [address] Canvas Marker: Jean-Pierre Gallardo MD Platelet mean volume (Bld) [Entitic vol] 9.9 fL Normal 8.1-13.5 [facility] Comment on above: Performed By: #### TONY HART, LYTE #### [facility] [address] [place] [address]. [place] [address] Canvas Marker: Jean-Pierre Gallardo MD Platelets (Bld) [#/Vol] 162 10*3/uL Normal 138-453 [facility] Comment on above: Performed By: #### TONY HART, LYTE #### [facility] [address] [place] [address] Canvas Marker: Jean-Pierre Gallardo MD RBC (Bld) [#/Vol] 4.62 10*6/uL Normal 4.21-5.77 [facility] Comment on above: Performed By: #### Allan ROMERO BUNCRT, LYTE #### [facility] [address] [place] [address]. [place] [address] Canvas Marker: Jean-Pierre Gallardo MD WBC (Bld) [#/Vol] 9.2 10*3/uL Normal 3.5-11.3 [facility] Comment on above: Performed By: #### YOGI HARTCRT, LYTE #### [facility] [address] [place], [place] [address] Canvas Marker: Jean-Pierre Gallardo MD Hematocrit (Bld) [Volume fraction] 45.0 % 40.7 - 50.3 % [facility] Hemoglobin.gastrointes tinal spec 1 Ql (Stl) 14.1 g/dL 13.0 - 17.0 g/dL [facility] MCH (RBC) [Entitic mass] 30.5 pg 25.2 - 33.5 pg [facility] MCHC (RBC) [Mass/Vol] 31.3 g/dL 28.4 - 34.8 g/dL [facility] MCV (RBC) [Entitic vol] 97.4 fL 82.6 - 102.9 fL [facility] NRBC Automated 0.0 0.0 per 100 WBC [facility] Platelet distribution width (Bld) [Ratio] 11.9 % 11.8 - 14.4 % [facility] Platelet mean volume (Bld) [Entitic vol] 9.9 fL 8.1 - 13.5 fL [facility] Platelets (Bld) [#/Vol] 162 10*3/uL [facility] RBC (Bld) [#/Vol] 4.62 10*6/uL 4.21 - 5.7 7 m/uL [facility] WBC (Bld) [#/Vol] 9.2 10*3/uL [facility] Electrolyte Panelon 04-23-20 22 Anion gap [Moles/Vol] 6 mmol/L Low 9 - 17 mmol/L [facility] Chloride [Moles/Vol] 101 mmol/L 98 - 10 7 mmol/L [facility] CO2 [Moles/Vol] 35 mmol/L High 20 - 31 mmol/L [facility] Interpretation and review of laboratory results Abnormal [facility] Potassium [Moles/Vol] 4.6 mmol/L 3.7 - 5.3 mmol/L [facility] Sodium [Moles/Vol] 142 mmol/L 135 - 144 mmol/L [facility] Electrolyteson 04-23-2022 Anion gap [Moles/Vol] 6 mmol/L Low 9-17 [facility] Comment on above: Performed By: #### C TONY ROMERO, LYTE #### [facility] [address] [place] [address] Canvas Marker: Jean-Pierre Gallardo MD Chloride [Moles/Vol] 101 mmol/L Normal 98-107 [facility] Comment on above: Performed By: #### C NICK BUNCRT, LYTE #### [facility] [address] [place] [address] Canvas Marker: Jean-Pierre Gallardo MD CO2 [Moles/Vol] 35 mmol/L High 20-31 [facility] Comment on above: Performed By: #### TONY HART, LYTE #### [facility] [address] [place] [address] Canvas Marker: Jean-Pierre Gallardo MD Potassium [Moles/Vol] 4.6 mmol/L Normal 3.7-5.3 [facility] Comment on above: Performed By: #### Allan ROMERO BUNCRT, LYTE #### [facility] [address] [place] [address] Canvas Marker: Jean-Pierre Gallardo MD Sodium [Moles/Vol] 142 mmol/L Normal 135-144 [facility] Comment on above: Performed By: #### Allan ROMERO BUNCRT, LYTE #### [facility] [address] [place] [address] Canvas Marker: Jean-Pierre Gallardo MD No Panel Informationon 04-23 [facility] Chronic pulmonary change without acute cardiopulmonary process. [facility] RIS CONSOLIDATED EXAMINATION: TWO XRAY VIEWS OF THE CHEST 04/23/2022 9:14 am COMPARISON: None. HISTORY: ORDERING SYSTEM PROVIDED HISTORY: pre-op TECHNOLOGIST PROVIDED HISTORY: Pt in [facility] pre-op Reason for Exam: Pre op prostate surg, May 03, 2022. COPD FINDINGS: There is chronic pulmonary change. There is no acute consolidation or effusion. There is no pneumothorax. The mediastinal structures are unremarkable. The upper abdomen unremarkable. The extrathoracic soft tissues are unremarkable. [facility] Frank Farrar MD - 04/23/2022 EXAMINATION: TWO XRAY VIEWS OF THE CHEST 04/23/2022 9:14 am COMPARISON: None. HISTORY: ORDERING SYSTEM PROVIDED HISTORY: pre-op TECHNOLOGIST PROVIDED HISTORY: Pt in [facility] pre-op Reason for Exam: Pre op prostate surg, May 03, 2022. COPD FINDINGS: There is chronic pulmonary change. There is no acute consolidation or effusion. There is no pneumothorax. The mediastinal structures are unremarkable. The upper abdomen unremarkable. The extrathoracic soft tissues are unremarkable. IMPRESSION: Chronic pulmonary change without acute cardiopulmonary process. [facility] Phone: Radiology Study observation (narrative) [facility] Phone: No Panel InformationOrdered By: Frank Roque on 04-23-2022 [facility] Phone: XR CHEST (2 VW)on 04-23-2022 XR CHEST (2 VW) EXAMINATION: TWO XRAY VIEWS OF THE CHEST 04/23/2022 9:14 am COMPARISON: None. HISTORY: ORDERING SYSTEM PROVIDED HISTORY: pre-op TECHNOLOGIST PROVIDED HISTORY: Pt in [facility] pre-op Reason for Exam: Pre op [...] Frank Roque MD 04/23/22 Final result Normal [facility] Q - PSA (FREE AND TOTAL)on 0 02-02-2022 PSA, % FREE 13 % (calc) Low >25 [facility] Big Data Software Engineer Comment on above: Order Comment: [facility] performed at: [employer] [employer], [address], [address] [facility], [place], [address], Envelope Machine Adjuster: Fermín Aj MD [facility] Collection Date/Time: [facility] [...] 30 93 9 (3)Catalona et al.:PAVAN 277: 4156-9878 (1996) (4)Catalona et al.:PAVAN 279: [phone] (1997) (x)These estimates vary with age, ethnicity, [...] mind. PSA was performed using the Jett Petty Immunoassay method. Values obtained from different assay methods cannot be used interchangeably. PSA levels, regardless of value, should not be interpreted as absolute evidence of the presence or absence of disease. Performed By: #### 3 [id number] #### [facility] [address] [place] [address] PSA, FREE 0.9 ng/mL Normal [facility] Big Data Software Engineer Comment on above: Order Comment: [facility] performed at: [employer] [facility], [address], [address] [place] [address], [phone], Envelope Machine Adjuster: Fermín Aj MD [facility] Date/Time: [facility] Results Received Date/Time: [facility] Reported Date/Time: Performed By: #### 3 [id number] #### [facility] [address] [place] [address] PSA, TOTAL 7.0 ng/mL High < OR = 4.0 [facility] Big Data Software Engineer Comment on above: Order Comment: [facility] performed at: [employer] [employer], [address] [place] [address], [phone], Envelope Machine Adjuster: Fermín Aj MD [facility] Date/Time: [facility] Results Received Date/Time: [facility] Reported Date/Time: Performed By: #### 3 [id number] #### [facility] [address] [place] [address] Complete Blood Count with Au to Diffon 01-25-2022 Basophils (Bld) [#/Vol] 0.07 10*3/uL Normal 0.00-0.20 [facility] [employer] Data [employer] Engineer Comment on above: Performed By: #### C BCAD, CMP, LIPD #### [facility] [address] [place] [id number] Basophils/100 WBC (Bld) 1.0 % Normal [facility] [employer] Data Software Engineer Comment on above: Performed By: #### C BCAD, CMP, LIPD #### [facility] [address] [place] [id number] Eosinophils (Bld) [#/Vol] 0.23 10*3/uL Normal 0.02-0.50 [facility] Big Data Software Engineer Comment on above: Performed By: #### C BCAD, CMP, LIPD #### [facility] [address] [place] [id number] Eosinophils/100 WBC (Bld) 3.2 % Normal [facility] Big Data Software Engineer Comment on above: Performed By: #### C BCAD, CMP, LIPD #### [facility] [address] [place], [place] [id number] Erythrocyte distribution width (RBC) [Ratio] 11.9 % Normal 11.0-15.0 [facility] Comment on above: Performed By: #### C BCAD, CMP, LIPD #### [facility] [address] [place], [place] [id number] Hematocrit (Bld) [Volume fraction] 43.2 % Normal 38.5-50.0 [facility] Comment on above: Performed By: #### C BCAD, CMP, LIPD #### [facility] [address] [place], [place] [id number] Hemoglobin (Bld) [Mass/Vol] 14.3 g/dL Normal 13.0-17.1 [facility] Specialist Comment on above: Performed By: #### C BCAD, CMP, LIPD #### [facility] [address] [place], [place] [id number] Lymphocytes (Bld) [#/Vol] 2.0 10*3/uL Normal 0.9-3.9 [facility] Comment on above: Performed By: #### C BCAD, CMP, LIPD #### [facility] [address] [place], [place] [id number] Lymphocytes/100 WBC (Bld) 28.0 % Normal [facility] Comment on above: Performed By: #### C BCAD, CMP, LIPD #### [facility] [address] [place], [place] [id number] MCH (RBC) [Entitic mass] 31.0 pg Normal 27.0-33.0 [facility] Specialist Comment on above: Performed By: #### C BCAD, CMP, LIPD #### [facility] [address] [place], [place] [id number] MCHC (RBC) [Mass/Vol] 33.1 g/dL Normal 32.0-36.0 [facility] Comment on above: Performed By: #### C BCAD, CMP, LIPD #### [facility] [address] [place], [place] [id number] MCV (RBC) [Entitic vol] 94 fL Normal 80-100 [facility] Specialist Comment on above: Performed By: #### C BCAD, CMP, LIPD #### [facility] [address] [place], [place] [id number] Monocytes (Bld) [#/Vol] 0.7 10*3/uL Normal 0.2-0.9 [facility] Specialist Comment on above: Performed By: #### C BCAD, CMP, LIPD #### [facility] [address] [place], [place] [id number] Monocytes/100 WBC (Bld) 9.3 % Normal [facility] Specialist Comment on above: Performed By: #### C BCAD, CMP, LIPD #### [facility] [address] [place], [place] [id number] Neutrophils (Bld) [#/Vol] 4.2 10*3/uL Normal 1.5-7.8 [facility] Specialist Comment on above: Performed By: #### C BCAD, CMP, LIPD #### [facility] [address] [place], [place] [id number] Neutrophils/100 WBC (Bld) 58.4 % Normal [facility] Specialist Comment on above: Performed By: #### C BCAD, CMP, LIPD #### [facility] [address] [place], [place] [id number] Platelet mean volume (Bld) [Entitic vol] 10.20 fL Normal 7.50-12.50 [facility] Comment on above: Performed By: #### C BCAD, CMP, LIPD #### [facility] [address] [place], [place] [id number] Platelets (Bld) [#/Vol] 151 10*3/uL Normal 140-400 [facility] Specialist Comment on above: Performed By: #### C BCAD, CMP, LIPD #### [facility] [address] [place], [place] [id number] RBC (Bld) [#/Vol] 4.61 10*6/uL Normal 4.20-5.80 [facility] Specialist Comment on above: Performed By: #### C BCAD, CMP, LIPD #### [facility] [address] [place], [place] [id number] RDW-SD 41.6 fL Normal 37.0-50.0 [facility] Specialist Comment on above: Performed By: #### C BCAD, CMP, LIPD #### [facility] [address] [place], [place] [id number] WBC (Bld) [#/Vol] 7.2 10*3/uL Normal 3.8-11.0 [place] [employer] Data Software Engineer Comment on above: Performed By: #### C BCAD, CMP, LIPD #### [facility] [address] [place], [place] [id number] Comprehensive Metabolic Pane champ 01-25-2022 Albumin [Mass/Vol] 4.5 g/dL Normal 3.6-5.1 [employer] [place] [employer] Data Software Engineer Comment on above: Performed By: #### C BCAD, CMP, LIPD #### [facility] [address] [place], [place] [id number] Albumin/Globulin [Mass ratio] 2.0 {ratio} Normal 1.0-2.5 [facility] Big Data Software Engineer Comment on above: Performed By: #### C BCAD, CMP, LIPD #### [facility] [address] [place], [place] [id number] ALP [Catalytic activity/Vol] 78 U/L Normal 40-129 [facility] Specialist Comment on above: Performed By: #### C BCAD, CMP, LIPD #### [facility] [address] [place], [place] [id number] ALT [Catalytic activity/Vol] 17 U/L Normal 9-46 [facility] Specialist Comment on above: Result Comment: 10/28 Female reference range changed. Performed By: #### C BCAD, CMP, LIPD #### [facility] [address] [place], [place] [id number] Anion gap [Moles/Vol] 15 mmol/L Normal 12-20 [facility] Specialist Comment on above: Result Comment: Effe ctive 12/03/2019 reference range changed. Performed By: #### C BCAD, CMP, LIPD #### [facility] [address] [place], [place] [id number] AST [Catalytic activity/Vol] 20 U/L Normal 10-40 [facility] Comment on above: Performed By: #### C BCAD, CMP, LIPD #### [facility] [address] [place], [place] [id number] Bilirubin [Mass/Vol] 0.53 mg/dL Normal 0.30-1.20 [facility] Comment on above: Performed By: #### C BCAD, CMP, LIPD #### [facility] [address] [place], [place] [id number] BUN/CREA 11 Ratio Normal 6-22 [facility] Comment on above: Performed By: #### C BCAD, CMP, LIPD #### [facility] [address] [place], [place] [id number] Calcium [Mass/Vol] 10.0 mg/dL Normal 8.6-10.2 [facility] Comment on above: Performed By: #### C BCAD, CMP, LIPD #### [facility] [address] [place], [place] [id number] Chloride [Moles/Vol] 103 mmol/L Normal 98-107 [facility] Comment on above: Performed By: #### C BCAD, CMP, LIPD #### [facility] [address] [place], [place] [id number] CO2 [Moles/Vol] 30 mmol/L Normal 20-31 [facility] Comment on above: Performed By: #### C BCAD, CMP, LIPD #### [facility] [address] [place], [place] [id number] Creatinine [Mass/Vol] 1.1 mg/dL Normal 0.7-1.4 [facility] Comment on above: Performed By: #### C BCAD, CMP, LIPD #### [facility] [address] [place], [place] [id number] eGFRAA 81 mL/min/1.73m2 Normal >60 [facility] Comment on above: Performed By: #### C BCAD, CMP, LIPD #### [facility] [address] [place], [place] [id number] eGFRNAA 67 mL/min/1.73m2 Normal >60 [place] Big Data Software Engineer Comment on above: Performed By: #### C BCAD, CMP, LIPD #### [facility] [address] [place], [place] [id number] Globulin (S) [Mass/Vol] 2.3 g/dL Normal 1.9-3.7 [facility] Big Data Software Engineer Comment on above: Performed By: #### C BCAD, CMP, LIPD #### [facility] [address] [place], [place] [id number] Glucose [Mass/Vol] 96 mg/dL Normal 65-99 [place] Big Data Software Engineer Comment on above: Result Comment: For FASTING Glucose --- ADA reference ranges: Normal 65-99 mg/dl Prediabetes 100-125 Diabetes >/= 126 Performed By: #### C BCAD, CMP, LIPD #### [facility] [address] [place], [place] [id number] Potassium [Moles/Vol] 4.3 mmol/L Normal 3.5-5.5 [facility] Specialist Comment on above: Performed By: #### C BCAD, CMP, LIPD #### [facility] [address] [place], [place] [id number] Protein [Mass/Vol] 6.8 g/dL Normal 6.1-8.1 [place] Big Data Software Engineer Comment on above: Performed By: #### C BCAD, CMP, LIPD #### [facility] [address] [place], [place] [id number] Sodium [Moles/Vol] 143 mmol/L Normal 135-146 [place] [employer] Data Software Engineer Comment on above: Performed By: #### C BCAD, CMP, LIPD #### [facility] [address] [place], [place] [id number] Urea nitrogen [Mass/Vol] 12 mg/dL Normal 7-25 [facility] Big Data Software Engineer Comment on above: Performed By: #### C BCAD, CMP, LIPD #### [facility] [address] [place], [place] [id number] Lipid Panelon 01-25-2022 Cholesterol [Mass/Vol] 162 mg/dL Normal 125-200 No [facility] Big Data Software Engineer Comment on above: Result Comment: Low risk < 200mg/dL Borderline risk 201-239 mg/dl High risk > or equal to 240 Performed By: #### C BCAD, CMP, LIPD #### [facility] [address], [place] [id number] Cholesterol in HDL [Mass/Vol] 59 mg/dL Normal >40 [facility] Specialist Comment on above: Result Comment: High Cardiovascular Risk HDL <40 mg/dL Low Cardiovascular Risk HDL > or equal to 60 mg/dl Performed By: #### C BCAD, CMP, LIPD #### [facility] [address], [place] [id number] Cholesterol in LDL [Mass/Vol] 79 mg/dL Normal [facility] Specialist Comment on above: Result Comment: LDL ATP III CLASSIFICATION LDL less than 100 mg/dl Optimal LDL 100-129 mg/dl Near or above optimal LDL 130-159 Borderline high LDL 160-189 High LDL greater than 189 mg/dl Very High Performed By: #### C BCAD, CMP, LIPD #### [facility] [address], [place] [id number] Cholesterol in VLDL [Mass/Vol] 24 mg/dL Normal [facility] [employer] Data Software Engineer Comment on above: Performed By: #### C BCAD, CMP, LIPD #### [facility] [address], [place] [id number] Cholesterol.total/Chol esterol in HDL [Mass ratio] 3 {ratio} Normal [facility] Specialist Comment on above: Performed By: #### C BCAD, CMP, LIPD #### [facility] [address], [place] [id number] Triglyceride [Mass/Vol] 121 mg/dL Normal 30-150 [facility] [employer] Software Engineer Comment on above: Result Comment: TRIG ATPIII CLASSIFICATIONS TRIG less than 150 mg/dl Normal TRIG 150-199 mg/dl Borderline High TRIG 200-500 mg/dl High TRIG greather than 500 mg/dl Very High Performed By: #### C BCAD, CMP, LIPD #### [facility] [address], [place] [id number] PSA SCREEN (MEDICARE)on 12-30 TPSA 5.940 ng/mL High <4.000 [facility] Big Data Software Engineer Comment on above: Result Comment: PSA Test Method: ECLIA/Gilberto e 601 Performed By: #### P #### [facility] [address] [facility] [place] [id number] Vital Signs Date Time Vital Sign Value Performing Clinician Facility 08-24-2022 10:30-0400 Body height 177.8 cm Orlando Reedgloria Other [facility] Other 08-24-2022 10:30-0400 Body mass index (BMI) [Ratio] 22.67 kg/m2 Orlando Reedgloria Other [facility] Other 08-24-2022 10:30-0400 Body weight 71.67 kg Orlando Valencia Other [facility] Other 08-24-2022 10:30-0400 Diastolic blood pressure 86 mm[Hg] Orlando Dittgloria Other [facility] Other 08-24-2022 10:30-0400 Systolic blood pressure 118 mm[Hg] Orlando Reedgloria Other [facility] Other 05-03-2022 12:15-0400 Body temperature 98.2 [degF] Mayda Castro MD Work Phone: [employer] 05-03-2022 12:15-0400 Diastolic blood pressure 89 mm[Hg] Mayda Castro MD Work Phone: [employer] 05-03-2022 12:15-0400 Heart rate 77 /min Mayda Castro MD Work Phone: [employer] 05-03-2022 12:15-0400 Respiratory rate 15 /min Mayda Castro MD Work Phone: [employer] 05-03-2022 12:15-0400 SaO2% (BldA) [Mass fraction] 98 % Mayda Castro MD Work Phone: [facility] 05-03-2022 12:15-0400 Systolic blood pressure 115 mm[Hg] Mayda Castro MD Work Phone: [facility] [employer] [facility] 05-03-2022 10:06-0400 Body height 177.8 cm Myada Castro MD Work Phone: [facility] [facility] 05-03-2022 10:06-0400 Body mass index (BMI) [Ratio] 22.96 kg/m2 Mayda Castro MD Work Phone: [facility] 05-03-2022 10:06-0400 Body weight 72.58 kg Mayda Castro MD [facility] 04-23-2022 08:05-0400 SaO2% (BldA) [Mass fraction] 95 % Sta 1 [employer] 04-23-2022 08:02-0400 Body height 177.8 cm Sta 1 [facility] [employer] 04-23-2022 08:02-0400 Body mass index (BMI) [Ratio] 22.96 kg/m2 Sta 1 [employer] 04-23-2022 08:02-0400 Body temperature 97.7 [degF] Sta 1 [facility] 04-23-2022 08:02-0400 Body weight 72.58 kg Sta 1 [employer] 04-23-2022 08:02-0400 Diastolic blood pressure 68 mm[Hg] Sta 1 [facility] 04-23-2022 08:02-0400 Heart rate 100 /min Sta 1 [facility] [employer] 04-23-2022 08:02-0400 Respiratory rate 24 /min Sta 1 [facility] [employer] 04-23-2022 08:02-0400 Systolic blood pressure 132 mm[Hg] Sta 1 [employer] Encounters Encounter Date Encounter Type Care Provider [...] 08-24-2022 End: 08-24-2022 ambulatory Orlando Valencia Other [employer] Other Start: 08-24-2022 [facility] visit new patient Orlando Valencia [facility] Start: 08-04-2022 End: 08-05-[address] DOCTOR GARZON Facility:[facility] Start: 07-26-2022 End: 07-27-[address] RADAMES MART Facility:[facility] Start: 05-03-2022 End: 05-03-2022 [facility] Start: 05-03-2022 End: 05-03-2022 Subsequent hospital visit by physician Mayda Castro MD Work Phone: [facility] Comment on above: PSA elevation Start: 04-23-2022 End: 04-26-2022 ambulatory MAYDA [facility] Start: 04-23-2022 End: 04-28-2022 ambulatory RADAMES B MART [facility] Start: 04-23-2022 End: 04-25-2022 Subsequent hospital visit by physician Rina X-Ray [facility] Radiology Comment on above: Arrived Start: 04-23-2022 End: 04-27-2022 Subsequent hospital visit by physician Rina Pat Rm 1 [facility] PRE-ADMIT TESTING Procedures Date Procedure Procedure Detail Performing Clinician Start: 04-04-[address] DOCTOR GARZON Comment on above: Performed By: #### P SAD #### [facility] [address] [place] [address] Dr. Mireya Tabor Start: 02-05-[address] DOCTOR GARZON Comment on above: Performed By: #### P SAD #### [facility] [address] [place] [address] Dr. Mireya Tabor Start: 08-04-[address] DOCTOR GARZON Comment on above: Performed By: #### P SAD #### [facility] [address] [place] [address] Dr. Mireya Tabor Start: 04-23-2022 Radiologic exam [...] CI [facility] [address] [place] [id number] Irina Bowman PA [address] [place] [address] Arrived [facility] Comment on above: Arrived Start: 07-29-2024 Influenza vaccination Influenza Vacc ine (#1) [facility] Start: 01-25-2023 [facility]id [facility] Start: 07-29-2022 Influenza vaccination Flu vacc ine (Season Ended) [facility] Start: 05-03-2022 End: 05-03-2022 Admission to same day surgery center 05/03/2022 Surgery IP Unit Mayda Castro MD [address] [place] [address] FUSION PROSTATE BIOPSY WITH ULTRASOUND MRI WAS AT [facility] ON 03/12 [facility] Comment on above: FUSION PROSTATE BIOP SY WITH ULTRASOUND MRI WAS AT [facility] ON 03/12 Start: 05-03-2022 End: 05-03-2022 Anesthesia consultation 05/03/2022 Anesthesia Event IP Unit Fish Rider MD [address] [place] [address] [facility] Start: 05-03-2022 Subsequent hospital visit by physician 05/03/2022 Hospital Encounter IP Unit Mayda Castro MD [address] [place] [address] [facility] Start: 05-03-2022 End: 05-03-2022 Biopsy prostate incisional any approach [facility] Start: 05-31-2020 Pneumococcal 65+ yea rs Vaccine (2 - PCV) Pneumococcal 65+ years Vaccine (2 - PCV) [facility] Start: 2017 Abdominal aortic aneurysm screening AAA screen [facility] Start: 2002 Shingles vaccine (1 of 2) Shingles vaccine (1 of 2) [facility] Start: 1997 Screening for malign ant neoplasm of colon [facility] Start: 1992 Prostate specific antigen measurement Prostate Specific Antigen (PSA) Screening or Monitoring [facility] Start: 1971 DTaP/Tdap/Td vaccine (1 - Tdap) DTaP/Tdap/Td vaccine (1 - Tdap) [facility] Start: 1970 Hepatitis C screening Hepatitis C sc reen [facility] Start: 1964 Depression Screen Depression Screen [facility] [employer] Start: 1952 Annual Wellness Visi t (AWV) Annual Wellness Visit (AWV) [facility] Start: 1952 Screening for malign ant neoplasm of colon [facility] Continuous pulse oximetry Pulse oximetry, continuous Respiratory Care Routine Every 4hr until discontinued starting 05/04/2022 [facility] Work Phone: Comment on above: Every 4hr until disc ontinued starting 05/04/2022 Surgical Pathology Surgical Path ology Lab Routine PSA elevation Release Upon Ordering for 1 Occurrences starting 05/03/2022 [facility] Phone: Comment on above: Release Upon Orderin g for 1 Occurrences starting 05/03/2022 End: 05-03-2022 SURGICAL PATHOLOGY REPORT SURGICAL PATHOLOGY REPORT Lab Routine Once for 1 Occurrences starting 05/03/2022 until 05/03/2022 [facility] Work Phone: Comment on above: Once for 1 Occurrenc es starting 05/03/2022 until 05/03/2022 Immunizations Immunization Date Immunization Notes Care Provider [facility] 02-03-2024 Influenza, High-dose Seasonal, Quadrivalent, Preservative Free Irina OBRIEN Work Phone: [facility] 02-03-2024 Pneumococcal Conjuga te PCV 20 Irina OBRIEN Work Phone: [facility] 02-03-2024 influenza virus vacc ine, unspecified formulation Irina OBRIEN Work Phone: [facility] 10-19-2022 Influenza, Seasonal, Quadrivalent, Adjuvanted Irina OBRIEN Work Phone: [facility] 02-12-2022 Influenza, Seasonal, Quadrivalent, Adjuvanted Irina OBRIEN Work Phone: [facility] 02-02-2022 COVID-19, Pfizer Pur ple top, DILUTE for use, 12+ yrs, 30mcg/0.3mL dose Sta Rm [facility] Work Phone: 01-29-2021 COVID-19, Pfizer Pur ple top, DILUTE for use, 12+ yrs, 30mcg/0.3mL dose Sta Rm [facility] Work Phone: 01-08-2021 COVID-19, Pfizer Pur ple top, DILUTE for use, 12+ yrs, 30mcg/0.3mL dose Sta Rm [facility] [employer] Work Phone: 09-20-2020 influenza, high dose seasonal, preservative-free Irina Hemmer PA Work Phone: [facility] 09-20-2020 Influenza, High-dose Seasonal, Quadrivalent, Preservative Free Irina Hemmer PA Work Phone: [facility] 06-25-2020 zoster vaccine recombinant Irina Hemmer PA Work Phone: [facility] 01-28-2020 pneumococcal polysaccharide vaccine, 23 valent Irina Hemmer PA Work Phone: [facility] 01-28-2020 zoster vaccine recombinant Irina Hemmer PA Work Phone: [facility] 10-31-2019 influenza, high dose seasonal, preservative-free Irina Hemmer PA Work Phone: [facility] 10-31-2019 Influenza, High-dose Seasonal, Quadrivalent, Preservative Free Irina Hemmer PA Work Phone: [facility] 05-31-2019 pneumococcal polysaccharide vaccine, 23 valent Irina Hemmer PA Work Phone: [facility] 09-29-2017 influenza, high dose seasonal, preservative-free Irina Hemmer PA Work Phone: [facility] 09-14-2016 influenza, injectabl e, quadrivalent, contains preservative Irina Hemmer PA Work Phone: [facility] 09-14-2016 influenza, injectabl e, quadrivalent, preservative free Irina Hemadrien PA Work Phone: [facility] 09-06-2015 influenza virus vacc ine, unspecified formulation Irina Hemmer PA Work Phone: [facility] 08-28-2014 influenza virus vacc ine, unspecified formulation Irina Hemmer PA Work Phone: [facility] 11-08-2013 influenza virus vacc ine, unspecified formulation Irina Hemmer PA Work Phone: [facility] 10-28-2012 pneumococcal polysaccharide vaccine, 23 valent Irina Hemmer PA Work Phone: [facility] 02-27-1992 tetanus toxoid, redu franchesca diphtheria toxoid, and acellular pertussis vaccine, adsorbed Irina Hemmer PA Work Phone: [facility] Healthcare Payers Date Payer Category Payer Private Health [facility] [id number] 2017 Medicare MEDICARE [id number] 1959 Medicare [id number] 1959 Private Health Insurance [id number] 1952 Unknown [id number] .177 1952 Unknown [id number] .177 1952 Unknown [id number] [id number] .177 1952 Unknown [id number] [id number] .593 1952 Unknown [id number] [id number] .593 1952 Unknown [id number] [id number] .593 1952 Unknown [id number] [id number] .593 1952 Unknown [id number] [id number] .1259 1952 Unknown [id number] [id number] .1259 1952 Unknown [id number] [id number] .1259 1952 Unknown [id number] [id number] .718 1952 Unknown [id number] [id number] .718 1950 Unknown [id number] .718 Social History Date Type Detail Facility Start: 04-23-2022 End: 06-15-2023 Tobacco smoking status HIIS Ex-smoker [facility] Phone: End: 11-28-2006 History of tobacco use Current smoker [facility] Phone: Start: 04-23-2022 End: 06-15-2023 Tobacco use and exposure Smokeless tobacco non-user [facility] Phone: Start: 04-23-2022 End: 02-07-2025 Alcohol intake Current drinker of alcohol (finding) [facility] Phone: Start: 04-23-2022 End: 02-07-2025 Alcohol intake [employer] Phone: Start: 1950 Sex Assigned At Not on file B ON [employer] Phone: Start: 04-23-2022 End: 05-03-2022 Exposure to SARS-CoV-2 (event) Not sure [facility] Phone: Start: 05-23-2024 End: 02-07-2025 Sex Assigned At [facility] [email or web address] Other History of tobacco use Cigarette Smoker [facility] Healthcare Start: 06-21-2023 Alcohol Comment caffeine 1-2 c ups per day [facility] Healthcare Clinical Notes 04-23-2022 to 07-31-2025 Telephone Encounter - Lolita Mccoy - 05/29/2025 1:52 PM EDTTelephone Encounter - Lolita Allison - 05/29/2025 1:52 PM EDTTelephone Encounter - Lolita Allison - 05/20/2025 9:28 AM EDT Note Date & Type Note Facility 07-31-2025 Note - From: Drea Chopra (Urology Clinical Pool ([facility] Sent: 07/31/2025 14:24:29 EDT Subject: General Message Caller Name: BRIAN QUEZADA; Caller Number: H , M Pt called stated had not received medication Orgovyx sent to [facility]. Spoke with Pharmacist Arlette, who stated she was waiting for insurance coverage ID # and pt should be receiving medication soon by delivery. Pt called and notified. [facility] 07-17-2025 Note - From: Drea Chopra Sent: 07/17/2025 08:14:01 EDT Subject: General Message Caller Name: BRIAN QUEZADA; Caller Number: H , M Refill request Orgovyx (Relugolix) 120mg tablet, 1 tablet orally once a day, #30, 11 refills. Sent to [facility] Needs to be seen in office in 3-4 months. Pt next appointment must kept for more refills per Dr. Castro. [facility] 05-29-2025 Telephone encounter Note Form atting of this note might be different from the original. Lvm 3rd attempt to contact no contact letter sent [facility] 05-29-2025 Miscellaneous Notes Formattin g of this note might be different from the original. Lvm 3rd attempt to contact no contact letter sent Patient stated they will call back and schedule within the next couple of days Kenyt is overdue for sandeep middleton trying to schedule appt documented in this encounter [facility] 05-20-2025 Telephone encounter Note Form atting of this note might be different from the original. Patient stated they will call back and schedule within the next couple of days [facility] 05-13-2025 Telephone encounter Note Form atting of this note might be different from the original. Bryson is overdue for mawv - lvm trying to schedule appt [facility] 08-24-2022 Evaluation note Encounter Date Diagnosis Assessment Notes Jul, Abdominal distension (ICD-10 - R14.0) Jul, Constipation (ICD-10 - K59.00) OBTAIN COLONOSCOPY FROM [facility] MAY USE LINZESS NEEDED F/U PRN [facility] Other 06-06-2022 Hospital Discharge instructions* Instructions* Mayda [...] Mayda Castro MD documented in this encounterBON [facility] Work Phone: 1(665) 643-945005-27-2022 History of Present illness Narrative* Erin Mclaughlin, FAITH - MANUFACTURING MACHINE OPERATOR - 04/23/2022 8:00 AM EDT PAT Progress Note Pt Name: Brian Quezada Birthdate: 1950 Date of evaluation: 04/23/2022 [x] Called to PAT. I spoke to the patient, Brian Quezada, a 71 y.o. male, who is scheduled for an upcoming FUSION PROSTATE BIOPSY WITH ULTRASOUND MRI WAS AT [facility] ON 03/12 by Mayda Castro MD [...] ms QTc Calculation (Bazett) 410 ms P [place] 88 degrees R [place] 42 degrees T [place] 81 degrees CBC Collection Time: 04/23/22 9:11 [...] 04/23/2022 at 1:55 PM [facility] [employer] Phone: evaluation note* Diagnosis PSA elevation Elevated prostate specific antigen (PSA) documented in this encounter [facility] [employer] Phone: History general Narrative - Reported* Type [...] History wisdom teeth Hospitalization History see above [facility] Other Reason for visit Narrative* Auth/Cert Specialty Diagnoses / Procedures Referred By Dat yadav Referred To Contact Diagnoses Elevated PSA DX ELEVATED PSA Procedures ME BIOPSY OF PROSTATE,INCISIONAL FUSION PROSTATE BIOPSY WITH ULTRASOUND MRI WAS AT [facility] ON 03/12 Mayda Castro MD [address] [facility] [address] [place] [address] [employer] [address] [place] [address] Referral ID Status Reason Start Date Expiration Date Visits Re quested Visits Authorized [employer] Work Phone: Summary Purpose Family History No [...] section and content) DATE CREATED AUTHOR 02/05/2022 [facility] dical Specialist DATE CREATED AUTHOR AUTHOR'S ORGANIZ ATION 05/07/2022 [facility] DATE CREATED AUTHOR AUTHOR'S ORGANIZ ATION 04/08/2023 [facility] pital DATE CREATED AUTHOR AUTHOR'S ORGANIZ ATION 02/10/2025 [facility] dical Specialists EPIC DATE CREATED AUTHOR AUTHOR'S ORGANIZ ATION 08/02/2025 [facility] Care Teams (unrecognized sec tion and content) Senior Clinical Data Analyst Relationship Specialty Start Date End Date Radames Mart MD [address] [facility] [address] [place] [address] PCP - General Internal Medicine 04/23/22 Senior Clinical Data Analyst Relationship Specialty Start Date End Date Radames Mart MD [address] [facility] [address] [place] [address] PCP - General Internal Medicine 04/23/22 Senior Clinical Data Analyst Relationship Specialty Start Date End Date Radames Mart MD [address] [place] [address] PCP - General Internal Medicine 04/23/22 Senior Clinical Data Analyst Relationship Specialty Start Date End Date Radames Mart MD [address] [place] [address] PCP - ACO Reach 04/21/23 Radames Mart MD [address] [place] [address] PCP - General Internal Medicine 06/16/23 Senior Clinical Data Analyst Relationship Specialty Start Date End Date Radames Mart MD [address] [place] [address] PCP - ACO Reach 04/21/23 Radames Mart MD [address] [facility] [address] [place] [address] PCP - General Internal Medicine 06/16/23 Scheduled Active and Recently Administ ered Medications (unrecognized section and content) Medication Order 05/01/2022 05/02/2022 05/03/2022 ceFAZolin (ANCEF) 2000 mg in dextrose 5 % 50 mL IVPB (COMPLETED) 2,000 mg, IntraVENous, ONCE, 1 dose, On Tue05/03/22 at 1130, Antimicrobial Indications: Surgical Prophylaxis, Pre-op (day of surgery), STAT 1120 (Given - Provid er: Luna Barfield, LANDSCAPER HELPER - NUCLEAR INSTRUCTOR) sodium chloride flush 0.9 % injection 5-40 [...] (NoRateChange - Provider: Luna Barfield APRN - NUCLEAR INSTRUCTOR)1133 (Rate/Dose Change - Provider: FAITH Stanton CRNA)1215 [...] BE BASED ON THE PRIMARY CLINICAL RECORDS. [employer] provides no warranty or guarantee of the accuracy or completeness of information in this document.
[2025-09-07] MEDS: 0.9 % SODIUM CHLORIDE 1,000 ML 65 ML IV (12:16)
[2025-09-07] MEDS: DILTIAZEM HCL 60 MG TABLET 30 MG PO ×2 (14:05→21:45)
[2025-09-07] MEDS: DIAZEPAM 2 MG TABLET PO ×2 (16:14→21:45)
[2025-09-07] MEDS: DOXYCYCLINE MONOHYDRATE 100 MG CAPSULE PO (21:45)
[2025-09-07] MEDS: MIRTAZAPINE 15 MG TABLET 30 MG PO (21:46)
[2025-09-07] MEDS: ENOXAPARIN SODIUM 40 MG/0.4 ML SYRINGE SUBQ (21:46)
[2025-09-07 23:48] LABS: Glucose Urine UA NEGATIVE (NEGATIVE)
[2025-09-08] VITALS (78 sets, daily range): BP systolic 90–121; BP diastolic 59–76; PULSE 57–131; RESP 14; TEMP 36.3–37.7; O2SAT 82–99
[2025-09-08 00:14] LABS: Cannabinoid Screen Urine NEGATIVE (NEGATIVE); Methamphetamines Screen Urine NEGATIVE (NEGATIVE); Tricyclic Antidepressant Urine NEGATIVE (NEGATIVE)
[2025-09-08 00:16] LABS: Cast Seen? NONE SEEN #/LPF (NONE SEEN); Crystals Seen? None Seen #/HPF (None Seen); Urine Culture Indicated NO
[2025-09-08] MEDS: 0.9 % SODIUM CHLORIDE 1,000 ML 65 ML IV (04:32)
[2025-09-08] MEDS: PANTOPRAZOLE SODIUM 40 MG TABLET.DR PO (06:10)
[2025-09-08] MEDS: ACETAMINOPHEN 325 MG TABLET 650 MG PO (06:10)
[2025-09-08] MEDS: METHYLPREDNISOLONE SOD SUCC PF 40 MG/ML VIAL IVP ×3 (06:10→21:16)
[2025-09-08] MEDS: DIAZEPAM 2 MG TABLET PO ×2 (06:10→13:02)
[2025-09-08] MEDS: DILTIAZEM HCL 60 MG TABLET 30 MG PO ×3 (06:12→21:17)
[2025-09-08 06:30] LABS: Hematocrit 37.4 % (42.0-54.0); Hemoglobin 11.4 g/dL (14.0-18.0); Mean Corpuscular HGB Conc 30.5 g/dL (29.9-35.2); Mean Corpuscular Hemoglobin 28.8 pg (25.9-34.0); Mean Corpuscular Volume 94.4 fL (80.0-94.0); Platelet Count 197 10^3/uL (150-450); Red Blood Count 3.96 10^6/uL (4.70-6.10); White Blood Count 6.6 10^3/uL (4.0-11.0)
[2025-09-08 06:36] LABS: Anion Gap 12.7; Blood Urea Nitrogen 17.0 mg/dL (7.0-18.0); Calcium 8.9 mg/dL (8.5-10.1); Carbon Dioxide 32.7 mmol/L (21.0-32.0); Chloride 104 mmol/L (98-107); Estimated GFR (African America >60 (>=60 mL/min/1.73m^2); Estimated GFR (Non-African Ame >60 (>=60 mL/min/1.73m^2); Glucose 122 mg/dL (74-106); Magnesium 2.1 mg/dL (1.8-2.4); Potassium 4.4 mmol/L (3.5-5.1); Sodium 145 mmol/L (136-145)
--- NOTE | 2025-09-08 08:00 | CT_ITS ---
The [address] [address] Patient Name: BRIAN BARNARD MRN: [id number] date: 1950 Sex: M Assigned Patient Location: [place] Current Patient Location: [place] Accession/Order Number: [id number] Exam Date: 09/08/2025 10:09 Report Date: 09/08/2025 11:36 At the request of: SOCO CHAHAL MD Procedure: CT head/brain wo con CT BRAIN WITHOUT CONTRAST: CLINICAL HISTORY: Confusion COMPARISON: None TECHNIQUE: Contiguous axial unenhanced images were obtained through the brain. This CT exam was performed using one or more following dose reduction techniques: Automated exposure control, adjustment of the mA and/or kV according to patient size, or use of iterative reconstruction technique. FINDINGS: There is no evidence of midline shift, intra or extra-axial fluid collection, hemorrhage or CT evidence central involutional changes and chronic small vessel ischemic disease. Intracranial vascular calcifications Visualized intraorbital contents appear unremarkable. Visualized paranasal sinuses are clear. The surrounding soft tissues are normal. CT/CT head/brain wo con IMPRESSION: NO ACUTE INTRACRANIAL ABNORMALITY. MILD CHRONIC SMALL VESSEL ISCHEMIC DISEASE Impression dictated by: Atul Locke M.D. 09/08/2025 11:36 AM Dictation Location: [place] [address] Electronically authenticated by: [id number] Y Date: 09/08/2025 11:36
--- NOTE | 2025-09-08 09:20 | PM.PN ---
Progress Note: Subjective Subjective Interval history: Uneventful night. Patient had BiPAP on for 6 hours then switch to Vapotherm. Saturation 94% on 40 L - 40%. Patient is arousable. He continues to have tremor. No focal weakness or numbness. He continues to be somewhat confused and hallucinating. Exam Narrative Exam Narrative: [pt is awake and alert. oriented to place, time and person, mild respiratory distress. Cachectic and frail in appearance. HEENT: [place] conjunctiva and NL buccal mucosa. Bitemporal muscle wasting. Neck: Supple, no tenderness Endocrine: No Thyromegaly. Vascular: No JVD or carotid bruit. Lymphatic: No cervical lymphadenopathy. Chest: Bilateral wheezing or rhonchi. Heart regular Abd: Soft, no tenderness, no rebound and no rigidity. Increase abd girth therefore clinically I could not exclude the possibility of intra abd mass or organomegaly. LE: No cyanosis or clubbing, no varices or edema. Upper and lower extremities muscle wasting atrophy. Neuro: Awake, arousable, able to answer yes and no questions nodding his head. He is moving all of his extremities. Nurse reported that patient has had hallucination yesterday. Somewhat restless. Resting tremor noted in his upper and lower extremities. []] Constitutional Vital Signs, click to edit/add: Last Vital Signs Temp 97.8 F 09/08/25 07:45 Pulse 64 09/08/25 07:52 Resp 25 H 09/08/25 07:30 BP 116/60 09/08/25 07:27 Pulse Ox 94 L 09/08/25 07:52 O2 Del Method Vapotherm 09/07/25 20:36 O2 Flow Rate 40 09/08/25 07:52 FiO2 50 09/08/25 07:52 Progress Note: Objective Labs Labs: Short CBC 09/08/25 Range/Units 06:09 WBC 6.6 (4.0-11.0) 10^3/uL Hgb 11.4 L (14.0-18.0) g/dL Hct 37.4 L (42.0-54.0) % Plt Count 197 (150-450) 10^3/uL BMP 09/08/25 06:09 Sodium 145 Potassium 4.4 Chloride 104 Carbon Dioxide 32.7 H BUN 17.0 Creatinine 0.94 Glucose 122 H Calcium 8.9 Urine 09/07/25 Range/Units 23:30 Urine Color Lt. yellow (YELLOW) Urine Clarity Clear (CLEAR) Urine pH 5.5 (5.0-9.0) Ur Specific [place] 1.015 (1.005-1.025) Urine Protein Negative (NEG/TRACE) mg/dL Urine Glucose (UA) Negative (NEGATIVE) mg/dL Progress Note: A&P Assessment and Plan (1) COPD exacerbation: (2) Hypoxic respiratory failure: Plan Acute COPD exacerbation. Basilar community-acquired pneumonia. ( Rt base on CT ) Acute on chronic hypoxic respiratory failure. Acute on chronic hypercapnic respiratory failure. CTA showed extensive COPD, no pulmonary embolism. I reviewed CAT scan imaging. Patient has extensive upper lobe emphysema. Rt basilar infiltration. Start patient on albuterol, Atrovent, Solu-Medrol, ceftriaxone and doxycycline. Influenza and COVID are negative. Requested RS, this came back negative. Other viruses such as adenovirus, parainfluenza, human [place] pneumo virus, others could not be tested at [place]. Thus far, patient is requiring high flow oxygen. Saturation drops to 88% on 6 L of oxygen. Continue to alternate between Vapotherm and BiPAP at night. Patient may qualify for lung reduction surgery given the predominantly upper lobe severe emphysema. He does not follow-up with pulmonary. He may need the PFTs to assess the severity of his emphysema which I suspect is significant. Patient also is at risk having lung cancer. I would recommend the patient to have yearly low-dose radiation CAT scan of the chest to screen for lung cancer to be addressed by PCP. Alcohol consumption. Patient is vague about the amount of alcohol consumption he drinks. I suspect that the patient is minimizing his alcohol intake. His stated that the patient has not had alcohol recently. I started patient on thiamine and folic acid. Thiamine intravenously 200 twice a day to reduce risk of having Warnicke encephalopathy. Cachexia, frailty, muscle wasting, failure to thrive, moderate protein calorie mentation. 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 Patient will likely require investigation for his cachexia and weight loss. This may include but not limited to cancer screening such as prostate exam, EGD, colonoscopy and others to be 100 in the outpatient setting. Meanwhile I would start patient on oral protein supplementation. Subtle hallucination. I suspect that this could be related to his hypoxemia and hypercapnia as well as decompensation of respiratory status I suspect that the patient may be having Warnicke or Korsakoff encephalopathy. stated that the patient has not had alcohol recently however he may still have Korsakoff encephalopathy. I started patient on thiamine intravenously as listed above. Requested CAT scan of the brain when patient is safe to go down to the department. Check urine tox screen which came back positive for benzo If CAT scan of the head is not revealing and the patient continues to have tremor and hallucination I would recommend neuro consultation, probable MRI of the brain. He may have some type of neurodegenerative disorder. Tachycardia which is likely secondary to his respiratory compromise Hypertension I started patient Cardizem 60 mg 3 times daily with improvement of his heart rate. Heart rate and high blood pressure had improved. Reduce Cardizem down to 30 mg 3 times daily with holding parameters Continue to monitor and adjust accordingly. Discontinued alpha-jorge. CAD. History of cardiac stenting in 2005. Continue Plavix. No clinical evidence of ACS at this time. I suspect that the patient has had a progression of CAD since 2005. Functional impairment. Patient is ataxic and unsteady. PT OT eval and treatment. Patient likely will require skilled care. Chronic, subacute medical conditions not listed above, abnormal labs and imaging. These would need to be addressed. Could be addressed later on or in the outpatient setting by PCP collaboration with other needed outpatient providers when time and condition are appropriate.
[2025-09-08] MEDS: ENSURE HP 237 ML LIQUID PO ×2 (09:27→21:16)
[2025-09-08] MEDS: DOXYCYCLINE MONOHYDRATE 100 MG CAPSULE PO ×2 (09:27→21:16)
[2025-09-08] MEDS: THIAMINE HCL 200 MG/2 ML VIAL IVP ×2 (09:28→21:17)
[2025-09-08] MEDS: CLOPIDOGREL BISULFATE 75 MG TABLET PO (09:28)
[2025-09-08] MEDS: ENOXAPARIN SODIUM 40 MG/0.4 ML SYRINGE SUBQ (09:28)
[2025-09-08] MEDS: ATORVASTATIN CALCIUM 20 MG TABLET PO (09:28)
[2025-09-08] MEDS: FOLIC ACID 1 MG TABLET PO (09:28)
[2025-09-08] MEDS: IPRATROPIUM/ALBUTEROL SULFATE 3 ML AMPUL.NEB IH ×3 (09:55→20:10)
[2025-09-08] MEDS: MIRTAZAPINE 15 MG TABLET 30 MG PO (21:16)
[2025-09-09] VITALS (31 sets, daily range): BP systolic 100–121; BP diastolic 60–72; PULSE 73–95; RESP 14; TEMP 36.6–36.9; O2SAT 73–97
[2025-09-09] MEDS: METHYLPREDNISOLONE SOD SUCC PF 40 MG/ML VIAL IVP ×3 (05:37→23:26)
[2025-09-09] MEDS: DILTIAZEM HCL 60 MG TABLET 30 MG PO ×2 (05:38→13:11)
[2025-09-09] MEDS: PANTOPRAZOLE SODIUM 40 MG TABLET.DR PO (05:39)
[2025-09-09 06:28] LABS: Thyroid Stimulating Hormone 0.322 uIU/mL (0.358-3.740)
[2025-09-09] MEDS: ENSURE HP 237 ML LIQUID PO ×2 (08:10→20:01)
[2025-09-09] MEDS: DOXYCYCLINE MONOHYDRATE 100 MG CAPSULE PO ×2 (08:10→20:01)
[2025-09-09] MEDS: ATORVASTATIN CALCIUM 20 MG TABLET PO (08:11)
[2025-09-09] MEDS: CLOPIDOGREL BISULFATE 75 MG TABLET PO (08:11)
[2025-09-09] MEDS: ENOXAPARIN SODIUM 40 MG/0.4 ML SYRINGE SUBQ (08:11)
[2025-09-09] MEDS: FOLIC ACID 1 MG TABLET PO (08:11)
[2025-09-09] MEDS: THIAMINE HCL 200 MG/2 ML VIAL IVP ×2 (08:11→20:01)
[2025-09-09] MEDS: IPRATROPIUM/ALBUTEROL SULFATE 3 ML AMPUL.NEB IH ×3 (09:44→20:44)
[2025-09-09] MEDS: BUDESONIDE 0.5 MG/2 ML AMPULE NEB IH ×2 (09:45→20:43)
--- NOTE | 2025-09-09 11:20 | CM.NOTE ---
Rounds made with Dr. Ernst, no discharge today. Pt continues to require vapotherm at 35%. RN will wean oxygen as tolerated. PT and OT will evaluate pt for discharge planning. Plan of care discussed with pt.
--- NOTE | 2025-09-09 11:30 | SWNOTE1 ---
SW consulted due to pt not feeling safe at home. SW met with pt to discuss the safety concerns and discuss dc needs. Pt sitting in chair and is on high flow oxygen. Pt voiced he does have a walker at home to use and he does wear home oxygen at 2-3 liters from a company in [place]. Pt told SW that he does not feel safe at home. SW asked who he lived with? He stated his . He stated him and his are having marital issues. They have been for 30+ years. Pt stated he just found out his had an 11 year old child. SW asked how old his was? He stated 72. SW then stated if she has an 11 year old child, she would have had that child when she was 61. Pt stated yes she did. SW did have concerns about his overall orientation. Pt is aware he is at the [facility], he came in on the , it is 2024 and the month is August. Pt is alert and oriented x3. SW did ask pt if his had harmed him physically in any way? He stated no. SW asked if he feared for his life. He stated no. He stated they are just having marital issues and once he is discharged from here, he would like to stay in a motel. SW did ask pt if he had money for a motel? He stated yes. SW did ask pt if his called, could we provide medical information to her? He stated yes. Pt's is coming today and pt would like to speak with her one more time today in regards to there marital issues to see what they can figure out. SW did ask him about his hallucinations he had been having during his stay? Pt stated he was told he was having those. He stated when he was at home and his friends were over, he had them as well. He had asked his friend if he saw the body in the corner? His friend did not. SW did ask pt if his was coming to hospital today? He stated yes. Pt did ask SW to not tell anyone about his marital issues. SW did have to make sure pt was safe. SW did ask pt again if his had harmed him in any way physically? He stated no. SW did ask if his was verbally abusive? He stated no. He stated he was not sure what to do or who to call in regards to feeling unsafe. SW did ask if he had any family/friends? He stated he has 2 sons, but they are busy with there own lives. He felt threatened by his 's family. SW asked if they have every harmed him in any way? He stated no. He again expressed that him and his are having marital issues and he was deeply hurt by his sneaking around. SW expressed that pt can always call the police so they can come and assess the home situation when he does feel threatened. He voiced understanding.Pt then spoke with SW about his drinking. He stated everyone is asking him about this. He stated he used to [place] [employer] [place] [employer] and drank 4x a week. If he drank beer it was 6 beers, if he drank liquor it was 3 shots and a Pepsi. Pt voiced he has not been healthy enough to do that. SW asked if he has been drinking at home? Pt stated if he drinks at home he drinks crown apple and he drinks about 1/5 per month/month and a half. SW and pt also spoke about discharge planning and if he is not strong enough to return home, the possibility of going to SNF for a short time. Pt unsure at this time. SW started reviewing Important Message from Medicare with pt. Pt then stated he does have [facility] and he would like everything billed through the VA. SW confirmed he would like VA as primary. SW let him know if we contact the VA and they have a bed available, he will get transferred to the [facility]. He voiced understanding and would like [facility] as primary. SW to update case management. Pt did ask for a pen and paper as he was going to start making calls around noon. SW provided pt with a pen and paper. SW advised pt that he can always ask for SW if he needs any assistance. ROB did update case management in regards to VA and in regards to pt's safety concerns. ROB also updated pt's nurse.
--- NOTE | 2025-09-09 12:00 | SWNOTE1 ---
SW called [facility] and pt does not have home 02 from them. SW called [employer] and pt does have home oxygen from. His last prescription for home oxygen is from Dr. Mart April 2025 for 2 liters continuous.
--- NOTE | 2025-09-09 13:07 | CM.NOTE ---
Addendum entered by Michelle Villegas 09/09/25 14:56: [id number] Original Note: I placed a call to the [facility] notification line and then the [facility] to see if they had any bed availability. They asked me to fax over clinical and they would be in touch. A face sheet and clinical were faxed to [phone].
[2025-09-09] MEDS: HYDROXYZINE HCL 25 MG TABLET PO (13:11)
--- NOTE | 2025-09-09 13:35 | PM.PN ---
Progress Note: Subjective Subjective Interval history: Pt was seen and evaluated at bedside, stable hemodynamics today. pt appears alert, awake, oriented to place, person, time (knows year and month) not exact date. knows day of the week and [place] president. paranoid as per nursing staff. communicative during my encounter, reports less cough and sputum production, still has some tremors, reports that he had them at home too. denies alcohol withdrawal in the past. reports that he does not drink much, maybe 2 shots a week according to him, he has had more aclohol drinking in the past but cut down. Exam Narrative Exam Narrative: pt is awake and alert. oriented to place, time (not exact date) and person, mild respiratory distress. Cachectic and frail in appearance. HEENT: [place] conjunctiva and NL buccal mucosa. Bitemporal muscle wasting. Neck: Supple, no tenderness Endocrine: No Thyromegaly. Vascular: No JVD or carotid bruit. Lymphatic: No cervical lymphadenopathy. Chest: Bilateral mild wheezing. Heart regular Abd: Soft, no tenderness, no rebound and no rigidity. Increase abd girth therefore clinically I could not exclude the possibility of intra abd mass or organomegaly. LE: No cyanosis or clubbing, no varices or edema. Upper and lower extremities muscle wasting atrophy. Neuro: Awake, alert, oriented, able to carry a conversation. follows commands appropriately. has some tremors, reports that he has had them at home. Constitutional Vital Signs, click to edit/add: Last Vital Signs Temp 98 F 09/09/25 11:24 Pulse 85 09/09/25 13:09 Resp 20 09/09/25 11:24 BP 121/69 09/09/25 13:11 Pulse Ox 92 L 09/09/25 13:09 O2 Del Method Vapotherm 09/09/25 13:09 O2 Flow Rate 40 09/09/25 13:09 FiO2 35 09/09/25 13:09 Progress Note: A&P Assessment and Plan (1) COPD exacerbation: (2) Hypoxic respiratory failure: Plan Acute COPD exacerbation. R Basilar community-acquired pneumonia. ( Rt base on CT ) Acute on chronic respiratory failure with hypoxia and hypercapnia CTA showed extensive COPD, no pulmonary embolism. I reviewed CAT scan imaging. Patient has extensive upper lobe emphysema. Rt basilar infiltration. Start patient on albuterol, Atrovent, Solu-Medrol, ceftriaxone and doxycycline. Influenza and COVID are negative. Requested RS, this came back negative. Other viruses such as adenovirus, parainfluenza, human [place] pneumo virus, others could not be tested at [place]. Thus far, patient is requiring high flow oxygen. Saturation drops to 88% on 6 L of oxygen. Continue to alternate between Vapotherm and BiPAP at night. Patient may qualify for lung reduction surgery given the predominantly upper lobe severe emphysema. He does not follow-up with pulmonary. He may need the PFTs to assess the severity of his emphysema which I suspect is significant. Patient also is at risk having lung cancer. I would recommend the patient to have yearly low-dose radiation CAT scan of the chest to screen for lung cancer to be addressed by PCP. for today: added Budesonide BID, PEP, Spirometry. Hypertonic saline nebs/IH Alcohol use disorder/withdrawal. Patient is vague about the amount of alcohol consumption he drinks. States that he is minimizing his alcohol intake. His stated that the patient has not had alcohol recently. patient on thiamine and folic acid. Thiamine intravenously 200 twice a day to reduce risk of having Wernicke encephalopathy. He is on Valium as needed as directed Cachexia, frailty, muscle wasting, failure to thrive, moderate protein calorie mentation. 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 Patient will likely require investigation for his cachexia and weight loss. This may include but not limited to cancer screening such as prostate exam, EGD, colonoscopy and others to be 100 in the outpatient setting. Meanwhile patient on oral protein supplementation. Subtle hallucination. suspect that this could be related to his hypoxemia and hypercapnia as well as decompensation of respiratory status suspect that the patient may be having Wernicke or Korsakoff encephalopathy. stated that the patient has not had alcohol recently however he may still have Korsakoff encephalopathy. patient on thiamine intravenously as listed above. CT head with no acute pathology urine tox screen came back positive for benzo If tremor continues, will consider MRI brain for further eval once he is more stable Tachycardia which is likely secondary to his respiratory compromise Hypertension patient was started on Cardizem 60 mg 3 times daily with improvement of his heart rate. Heart rate and high blood pressure had improved. Reduce Cardizem down to 30 mg 3 times daily with holding parameters Continue to monitor and adjust accordingly. Discontinued alpha-jorge. CAD. History of cardiac stenting in 2005. Continue Plavix. No clinical evidence of ACS at this time. suspect that the patient has had a progression of CAD since 2006. Functional impairment. Patient is ataxic and unsteady. PT OT eval > recs for SNF Chronic, subacute medical conditions not listed above, abnormal labs and imaging. These would need to be addressed. Could be addressed later on or in the outpatient setting by PCP collaboration with other needed outpatient providers when time and condition are appropriate. Discussed with pt at bedside, all questions answered Pt seems anxious, added hydroxyzine 25 mg TID Continue supportive care wean off oxygen as tolerated
--- NOTE | 2025-09-09 14:51 | SWNOTE1 ---
Pt's stopped on med/surge floor to speak with nurse. SW spoke with her and spoke with nurse at same time. SW did let her know that pt did tell SW that she has an 11 year old child and he was upset since they had been for 30+ years. Pt's did explain to SW that for the past few days, since about , pt has been very paranoid and has been hallucinating. She stated he also has not slept in a few days and he was getting upset and thought his pulse ox was broke because it kept saying 86%. 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 She stated this did make him upset as well. Pt had been seeing people in the home, and he was scared. He saw several men in the home. She stated she tried to keep him calm. Pt's was going to stay with her sister on Tuesday night, but did not feel like she should leave him home alone. Her sister came over and was able to calm him down and they eventually were able to convince pt to come to hospital. The again expressed to SW and nurse that this is all new. She stated he also does not drink anymore, years ago he did, but not anymore. Pt's did voiced she can't take him home like this. ROB assured pt's he is not ready for discharge at this time and he is still on high flow oxygen. We will re-assess daily and check on his needs daily for discharge. She voiced understanding. ROB did also ask her about his VA benefits and Medicare. She stated she wants his stay to be under his Medicare. She stated he has been here before and had the stay under Medicare and everything was covered. At this point pt's is going to return home and call back this evening to check on patient. Nurse is aware. She also let nurse and SW know that he can be a mouth breather as well.
--- NOTE | 2025-09-09 14:52 | CM.NOTE ---
Janny spoke with the patients and the does not have the patient to use his VA benefits for this admission. I did call the [facility] transfer center to let them know and she said that I did not need to do anything further.
--- NOTE | 2025-09-09 15:01 | SWNOTE1 ---
Important Message from Medicare reviewed and discussed with patient's , Xenia. Xenia verbalized understanding and signed the form. Original given to Xenia and copy placed in patient?s chart.
--- NOTE | 2025-09-09 16:06 | SWNOTE1 ---
Also per the pt has a ramp to get in to the home and he has a portable wheelchair and pt's is working on getting him an electric chair from the [place] as well.
[2025-09-09] MEDS: CLORDIAZEPOXIDE HCl 25 MG CAPSULE PO ×2 (17:34→23:27)
[2025-09-09] MEDS: DIAZEPAM 2 MG TABLET PO (19:49)
[2025-09-09] MEDS: SODIUM CHLORIDE 3% INHALATION 15 ML NEB 6 ML IH (20:44)
--- NOTE | 2025-09-09 23:02 | RESP.RT ---
Pt taken off of Vapotherm and placed on BIPAP for the night 13/07 Fi02 40%. Sp02 96%.
[2025-09-09] MEDS: MIRTAZAPINE 15 MG TABLET 30 MG PO (23:25)
[2025-09-10] VITALS (61 sets, daily range): BP systolic 106–127; BP diastolic 57–83; PULSE 55–108; RESP 14; TEMP 36.4–36.6; O2SAT 70–99
[2025-09-10 04:07] LABS: Vitamin B12 602 pg/mL (232-1245)
[2025-09-10] MEDS: CLORDIAZEPOXIDE HCl 25 MG CAPSULE PO (04:48)
[2025-09-10] MEDS: METHYLPREDNISOLONE SOD SUCC PF 40 MG/ML VIAL IVP ×3 (05:07→21:36)
[2025-09-10] MEDS: PANTOPRAZOLE SODIUM 40 MG TABLET.DR PO ×2 (05:08→06:01)
[2025-09-10 05:58] LABS: Hematocrit 35.3 % (42.0-54.0); Hemoglobin 10.9 g/dL (14.0-18.0); Immature Granulocytes Abs Auto 0.09 10^3/uL (0.00-0.03); Immature Granulocytes Pct Auto 1.0 % (0.0-0.5); Lymphocytes Absolute Auto 0.7 10^3/uL (1.2-3.8); Mean Corpuscular HGB Conc 30.9 g/dL (29.9-35.2); Mean Corpuscular Hemoglobin 29.5 pg (25.9-34.0); Mean Corpuscular Volume 95.7 fL (80.0-94.0); Platelet Count 217 10^3/uL (150-450); Red Blood Count 3.69 10^6/uL (4.70-6.10); White Blood Count 8.8 10^3/uL (4.0-11.0)
[2025-09-10 06:09] LABS: Alanine Aminotransferase 21 U/L (16-63); Albumin Globulin Ratio 0.8; Albumin Level 2.6 g/dL (3.4-5.0); Alkaline Phosphatase 48 U/L (46-116); Anion Gap 8.5; Aspartate Amino Transferase 16 U/L (15-37); Blood Urea Nitrogen 31.0 mg/dL (7.0-18.0); Calcium 8.6 mg/dL (8.5-10.1); Carbon Dioxide 36.3 mmol/L (21.0-32.0); Chloride 106 mmol/L (98-107); Estimated GFR (African America >60 (>=60 mL/min/1.73m^2); Estimated GFR (Non-African Ame >60 (>=60 mL/min/1.73m^2); Globulin 3.4 g/dL; Glucose 145 mg/dL (74-106); Potassium 4.8 mmol/L (3.5-5.1); Sodium 146 mmol/L (136-145); Total Protein 6.0 g/dL (6.4-8.2)
[2025-09-10] MEDS: BUDESONIDE 0.5 MG/2 ML AMPULE NEB IH ×2 (08:46→22:17)
[2025-09-10] MEDS: SODIUM CHLORIDE 3% INHALATION 15 ML NEB 6 ML IH ×2 (08:46→16:48)
[2025-09-10] MEDS: IPRATROPIUM/ALBUTEROL SULFATE 3 ML AMPUL.NEB IH (08:46)
[2025-09-10] MEDS: ATORVASTATIN CALCIUM 20 MG TABLET PO (08:53)
[2025-09-10] MEDS: ENOXAPARIN SODIUM 40 MG/0.4 ML SYRINGE SUBQ (08:53)
[2025-09-10] MEDS: CLOPIDOGREL BISULFATE 75 MG TABLET PO (08:53)
[2025-09-10] MEDS: DOXYCYCLINE MONOHYDRATE 100 MG CAPSULE PO ×2 (08:53→21:37)
[2025-09-10] MEDS: FOLIC ACID 1 MG TABLET PO (08:53)
[2025-09-10] MEDS: ENSURE HP 237 ML LIQUID PO ×2 (08:53→21:36)
[2025-09-10] MEDS: THIAMINE HCL 200 MG/2 ML VIAL IVP ×2 (08:53→21:36)
--- NOTE | 2025-09-10 10:59 | XR_ITS ---
[address] [address] Patient Name: BRIAN BARNARD MRN: [id number] date: 1950 Sex: M Assigned Patient Location: [place] Current Patient Location: [place] Accession/Order Number: [id number] Exam Date: 09/10/2025 12:55 Report Date: 09/10/2025 18:06 At the request of: OSMAR XIONG MD Procedure: XR chest 1V XR chest 1V 09/10/2025 1:12 PM SIGNS AND SYMPTOMS: ^SOB PROTOCOL: Frontal radiograph of the chest COMPARISON: 09/07/2025 FINDINGS: The trachea is midline. The heart and mediastinal structures are within normal limits. Diffuse interstitial and emphysematous changes are redemonstrated. No focal consolidation. The bony thorax is intact. XR/XR chest 1V IMPRESSION: No acute cardiopulmonary pathology. Diffuse chronic interstitial and emphysematous changes are redemonstrated. Impression dictated by: Ney Kuhn M.D. 09/10/2025 6:06 PM Dictation Location: [place] [address] Electronically authenticated by: [id number] Y Date: 09/10/2025 18:06
[2025-09-10] MEDS: CLORDIAZEPOXIDE HCl 25 MG CAPSULE 50 MG PO (11:45)
--- NOTE | 2025-09-10 12:55 | MR_ITS ---
[place] [id number] Patient Name: BRIAN BARNARD MRN: [id number] date: 1950 Sex: M Assigned Patient Location: [place] Current Patient Location: [place] Accession/Order Number: [id number] Exam Date: 09/10/2025 12:00 Report Date: 09/10/2025 13:50 At the request of: OSMAR XIONG MD Procedure: MR head/brain wo con EXAMINATION: MRI OF THE BRAIN WITHOUT CONTRAST CLINICAL HISTORY: Hallucinations, paranoia COMPARISON: CT head 09/08/2025 TECHNIQUE: Multiecho, multiplanar imaging of the brain was performed without contrast. FINDINGS: No restricted diffusion. Mild to moderate central involutional changes with prominence of the ventricles and sulci. Mild to moderate periventricular subcortical T2 prolongation identified suggest of chronic small vessel ischemic disease. Intracranial cranial arterial vascular flow voids are preserved. Mild ethmoid sinus thickening. MR/MR head/brain wo con IMPRESSION: [id number] chronic microvascular and central involutional changes without evidence acute intracranial process by MRI. Impression dictated by: Atul Locke M.D. 09/10/2025 1:50 PM Dictation Location: [place] [address] Electronically authenticated by: [id number] Y Date: 09/10/2025 13:50
--- NOTE | 2025-09-10 14:05 | P.PN_ITS ---
Progress Note: Subjective Subjective Interval history: Pt was seen and evaluated at bedside, remained stable hemodynamics today. oxygen requirement getting better. pt appears alert, awake, oriented person, time, could not tell the place. knows day of the week and [place] president. still paranoid as per nursing staff. reports of visual and audible hallucinations. pt reports mostly happens afternoon. However reports that he slept the best last night. less cough and sputum production today. Exam Narrative Exam Narrative: pt is awake and alert. oriented to time and person, not the place. HEENT: [place] conjunctiva and NL buccal mucosa. Bitemporal muscle wasting. Neck: Supple, no tenderness Vascular: No JVD or carotid bruit. Chest: diminished breath sounds, no crackles. Heart regular Abd: Soft, no tenderness, no rebound and no rigidity. Increase abd girth therefore clinically I could not exclude the possibility of intra abd mass or organomegaly. LE: No cyanosis or clubbing, no varices or edema. Upper and lower extremities muscle wasting atrophy. Neuro: Awake, alert, oriented, able to carry a conversation. follows commands appropriately. still has some tremors. Constitutional Vital Signs, click to edit/add: Last Vital Signs Temp 97.8 F 09/10/25 04:00 Pulse 91 H 09/10/25 13:15 Resp 29 H 09/10/25 13:15 BP 127/83 09/10/25 11:41 Pulse Ox 95 09/10/25 13:41 O2 Del Method Vapotherm 09/10/25 08:51 O2 Flow Rate 4 09/10/25 13:41 FiO2 40 09/10/25 08:51 Progress Note: Objective Labs Labs: Short CBC 09/10/25 Range/Units 05:30 WBC 8.8 (4.0-11.0) 10^3/uL Hgb 10.9 L (14.0-18.0) g/dL Hct 35.3 L (42.0-54.0) % Plt Count 217 (150-450) 10^3/uL BMP 09/10/25 05:30 Sodium 146 H Potassium 4.8 Chloride 106 Carbon Dioxide 36.3 H BUN 31.0 H Creatinine 0.76 Glucose 145 H Calcium 8.6 Liver Function 09/10/25 Range/Units 05:30 Total Bilirubin 0.2 (0.2-1.0) mg/dL AST 16 (15-37) U/L ALT 21 (16-63) U/L Alkaline Phosphatase 48 (46-116) U/L Albumin 2.6 L (3.4-5.0) g/dL Progress Note: A&P Assessment and Plan (1) COPD exacerbation: (2) Hypoxic respiratory failure: Plan Acute COPD exacerbation. R Basilar community-acquired pneumonia. ( Rt base on CT ) Acute on chronic respiratory failure with hypoxia and hypercapnia CTA showed extensive COPD, no pulmonary embolism. I reviewed CAT scan imaging. Patient has extensive upper lobe emphysema. Rt basilar infiltration. Start patient on albuterol, Atrovent, Solu-Medrol, ceftriaxone and doxycycline. Influenza and COVID are negative. Requested RS, this came back negative. Other viruses such as adenovirus, parainfluenza, human [place] pneumo virus, others could not be tested at [place]. Thus far, patient is requiring high flow oxygen. wean off as tolerated. Continue to alternate between Vapotherm and BiPAP at night. Patient may qualify for lung reduction surgery given the predominantly upper lobe severe emphysema. He does not follow-up with pulmonary. He may need the PFTs to assess the severity of his emphysema which I suspect is significant. Patient also is at risk having lung cancer. I would recommend the patient to h ave yearly low-dose radiation CAT scan of the chest to screen for lung cancer to be addressed by PCP. Continue Budesonide BID, PEP, vest therapy. Hypertonic saline nebs/IH Alcohol use disorder/withdrawal. Patient is vague about the amount of alcohol consumption he drinks. States that he is minimizing his alcohol intake. His stated that the patient has not had alcohol recently. patient on thiamine and folic acid. Thiamine intravenously 200 twice a day to reduce risk of having Wernicke encephalopathy. He is on Valium as needed as directed Cachexia, frailty, muscle wasting, failure to thrive, moderate protein calorie mentation. 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 Patient will likely require investigation for his cachexia and weight loss. Th is may include but not limited to cancer screening such as prostate exam, EGD, colonoscopy and others to be 100 in the outpatient setting. Meanwhile patient on oral protein supplementation. Visual and audible hallucinations. could be related to his hypoxemia and hypercapnia as well as decompensation of respiratory status. will recheck ABG in am. Could be having Wernicke or Korsakoff encephalopathy. stated that the patient has not had alcohol recently however he may still have Korsakoff encephalopathy. patient on thiamine intravenously as listed above. CT head with no acute pathology urine tox screen came back positive for benzo MRI brain done showed mild to moderate chronic microvascular changes. no acute pathology. CAD. History of cardiac stenting in 2005. Continue Plavix. No clinical evidence of ACS at this time. suspect that the patient has had a progression of CAD since 2005. Functional impairment. Patient is ataxic and unsteady. PT OT eval > recs for SNF Chronic, subacute medical conditions not listed above, abnormal labs and imaging. These would need to be addressed. Could be addressed later on or in the outpatient setting by PCP collaboration with other needed outpatient providers when time and condition are appropriate. Discussed with pt at bedside, all questions answered reported that pt has been paranoid with hallucinations about couple of weeks prior coming here? MRI brain done - no acute pathology ABG in am to assess Co2 level BiPAP at night as directed Adjusted CIWA score to Librium dosing, added Ativan as well if needed Will add low dose Seroquel 12.5 mg QHS
[2025-09-10] MEDS: IPRATROPIUM BROMIDE 0.5 MG/2.5 ML VIAL.NEB IH ×2 (16:48→22:16)
[2025-09-10] MEDS: MIRTAZAPINE 15 MG TABLET 30 MG PO (21:36)
[2025-09-10] MEDS: QUETIAPINE FUMARATE 25 MG TABLET 12.5 MG PO (21:36)
[2025-09-11] VITALS (86 sets, daily range): BP systolic 76–129; BP diastolic 54–85; PULSE 66–135; RESP 14–16; TEMP 36.4–36.8; O2SAT 78–98
[2025-09-11] MEDS: IPRATROPIUM BROMIDE 0.5 MG/2.5 ML VIAL.NEB IH ×4 (04:44→22:28)
[2025-09-11] MEDS: SODIUM CHLORIDE 3% INHALATION 15 ML NEB 6 ML IH ×2 (04:44→11:14)
[2025-09-11 04:52] LABS: HCO3 ABG 41.9 mmol/L (22.0-26.0)
[2025-09-11 04:53] LABS: Allen Test POSITIVE (POSITIVE); Liters per Minute 3L; O2 Mode NASAL CANNULA; Oxygen Saturation ABG 79.8 %; Puncture Site R RADIAL
[2025-09-11 04:54] LABS: ABG PCO2 80.0 mmHg (35.0-45.0); PO2 ABG 41.1 mmHg (80.0-100.0)
[2025-09-11 06:05] LABS: Anion Gap 4.8; Blood Urea Nitrogen 29.0 mg/dL (7.0-18.0); Calcium 9.2 mg/dL (8.5-10.1); Carbon Dioxide 40.8 mmol/L (21.0-32.0); Chloride 104 mmol/L (98-107); Estimated GFR (African America >60 (>=60 mL/min/1.73m^2); Estimated GFR (Non-African Ame >60 (>=60 mL/min/1.73m^2); Glucose 128 mg/dL (74-106); Potassium 4.6 mmol/L (3.5-5.1); Sodium 145 mmol/L (136-145)
[2025-09-11] MEDS: PANTOPRAZOLE SODIUM 40 MG TABLET.DR PO (06:37)
[2025-09-11] MEDS: ENSURE HP 237 ML LIQUID PO ×2 (08:17→21:02)
[2025-09-11] MEDS: ATORVASTATIN CALCIUM 20 MG TABLET PO (08:17)
[2025-09-11] MEDS: DOXYCYCLINE MONOHYDRATE 100 MG CAPSULE PO ×2 (08:17→23:33)
[2025-09-11] MEDS: ENOXAPARIN SODIUM 40 MG/0.4 ML SYRINGE SUBQ (08:18)
[2025-09-11] MEDS: THIAMINE MONONITRATE (VIT B1) 100 MG TABLET 200 MG PO (08:18)
[2025-09-11] MEDS: FOLIC ACID 1 MG TABLET PO (08:18)
[2025-09-11] MEDS: CLOPIDOGREL BISULFATE 75 MG TABLET PO (08:18)
--- NOTE | 2025-09-11 10:30 | CM.NOTE ---
Rounds made with Dr. Ernst, no discharge today. Discussed with RN regarding BIPAP changes on for 2 hrs and off for 2 hrs. Order updated. SW will discuss skilled therapy with pt.
[2025-09-11] MEDS: METHYLPREDNISOLONE SOD SUCC PF 40 MG/ML VIAL IVP ×2 (10:40→23:32)
[2025-09-11] MEDS: BUDESONIDE 0.5 MG/2 ML AMPULE NEB IH ×2 (11:16→22:27)
--- NOTE | 2025-09-11 14:32 | PT.DAILY ---
Physical Therapy Daily Note PT Daily Note/Assess Start: 09/10/25 10:12 Freq: Status: Active Protocol: Document 09/11/25 14:21 [id number] (Rec: 09/11/25 14:32 [id number] No Response) Physical Therapy Daily Note/Assessment Time In/Time Out Time In 01:51 Time Out 02:08 Pain In Pain Level 0 Pain Out Pain Level 0 Subjective Subjective Patient received in bed w/ HOB elevated on vapotherm at 40% Patient is agreeable to participate with PT. States he has no pain, just difficulty breathing. Nursing states he has been in bed for ~1 hour and sat up most of the morning. Nursing requests patient return to bed after PT treatment. Therapeutic Activity Time Therapeutic Activity 17 Minutes (minutes) Therapeutic Activity 1 Units Therapeutic Activity Treatment Bed Mobility Ability Contact Guard Assist Therapeutic Activity Supine to R side sit EOB w/ use or R handrail is CGA +1 Comments . Patient sits EOB without UE support with slouched posture. Able to correct with VC's, immediately returns to slouching. Transfer: sit to stand to 2WW is CGA +1. Seated RADHA LE ankle pumps, LAQ's, resisted hip ABD/ADD and marching times 10 reps to increase LE strength for walking. STS is CGA +1 to 2WW and stood ~ 1 minute w/ no sway or LOB. Patient returned to sitting EOB for seated therapeutic rest break. STS to 2WW is CGA +1, patient side step to L and R ~3 small steps x 2 reps with CGA +1 w/ 2WW. Patient returned to sitting EOB and is able to control descent to bed. Bed mobility: sit to supine is CGA +1. Patient is MAX A +2 to reposition up in bed. Patient left in care of SALINA Mittal to reapply Bi-pap. CBWR. Total Physical Therapy Time Total Therapy 17 Minutes Total Physical 1 Therapy Units Summary Daily Note Summary Patient is easily fatigued and experiences increased labored breathing with exertion. Patient requires less assist with bed mobility and transfers this date. Ambulation distance limited due to Vapotherm. Patient would benefit from skilled care upon D/C to address functional deficits for return to PLOF.
--- NOTE | 2025-09-11 14:39 | PM.PN ---
Progress Note: Subjective Subjective Interval history: Pt was seen and evaluated at bedside, stable hemodynamics today. States he feels better actually, less cough and sputum production. He is AAO x3. I do not see tremulous today. tolerating weaning off high flow. Noted with hypercapnia again on am blood gas. discussed with him to put on BiPAP, i did change settings of BiPAP. He said he still seeing some people faces here and there, but less. He has no hallucinations this morning or noon. Exam Narrative Exam Narrative: pt is awake and alert. oriented to time and person and place HEENT: [place] conjunctiva and NL buccal mucosa. Bitemporal muscle wasting. Neck: Supple, no tenderness Vascular: No JVD or carotid bruit. Chest: diminished breath sounds, no crackles. Heart regular Abd: Soft, no tenderness, no rebound and no rigidity. Increase abd girth therefore clinically I could not exclude the possibility of intra abd mass or organomegaly. LE: No cyanosis or clubbing, no varices or edema. Upper and lower extremities muscle wasting atrophy. Neuro: Awake, alert, oriented, able to carry a conversation. follows commands appropriately. no tremors. Constitutional Vital Signs, click to edit/add: Last Vital Signs Temp 97.9 F 09/11/25 11:48 Pulse 85 09/11/25 13:57 Resp 24 H 09/11/25 11:45 BP 103/68 09/11/25 11:44 Pulse Ox 94 L 09/11/25 13:57 O2 Del Method BIPAP 09/11/25 13:06 O2 Flow Rate 30 09/11/25 11:20 FiO2 40 09/11/25 13:06 Progress Note: Objective Labs Labs: [facility] 09/11/25 05:41 Sodium 145 Potassium 4.6 Chloride 104 Carbon Dioxide 40.8 H BUN 29.0 H Creatinine 0.76 Glucose 128 H Calcium 9.2 Progress Note: A&P Assessment and Plan (1) COPD exacerbation: (2) Hypoxic respiratory failure: Plan Acute COPD exacerbation. R Basilar community-acquired pneumonia. ( Rt base on CT ) Acute on chronic respiratory failure with hypoxia and hypercapnia CTA showed extensive COPD, no pulmonary embolism. I reviewed CAT scan imaging. Patient has extensive upper lobe emphysema. Rt basilar infiltration. Start patient on albuterol, Atrovent, Solu-Medrol, ceftriaxone and doxycycline. Influenza and COVID are negative. Requested RS, this came back negative. Other viruses such as adenovirus, parainfluenza, human [place] pneumo virus, others could not be tested at [place]. Thus far, patient is requiring high flow oxygen. wean off as tolerated. Continue to alternate between Vapotherm and BiPAP at night. Patient may qualify for lung reduction surgery given the predominantly upper lobe severe emphysema. He does not follow-up with pulmonary. He may need the PFTs to assess the severity of his emphysema which I suspect is significant. Patient also is at risk having lung cancer. I would recommend the patient to have yearly low-dose radiation CAT scan of the chest to screen for lung cancer to be addressed by PCP. Continue Budesonide BID, PEP, vest therapy. Hypertonic saline nebs/IH Alcohol use disorder/withdrawal. Patient is vague about the amount of alcohol consumption he drinks. States that he is minimizing his alcohol intake. His stated that the patient has not had alcohol recently. patient on thiamine and folic acid. Thiamine intravenously 200 twice a day to reduce risk of having Wernicke encephalopathy. He is on Valium as needed as directed Cachexia, frailty, muscle wasting, failure to thrive, moderate protein calorie mentation. 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 Patient will likely require investigation for his cachexia and weight loss. This may include but not limited to cancer screening such as prostate exam, EGD, colonoscopy and others to be 100 in the outpatient setting. Meanwhile patient on oral protein supplementation. Visual and audible hallucinations. could be related to his hypoxemia and hypercapnia as well as decompensation of respiratory status. will recheck ABG in am. Could be having Wernicke or Korsakoff encephalopathy. stated that the patient has not had alcohol recently however he may still have Korsakoff encephalopathy. patient on thiamine intravenously as listed above. CT head with no acute pathology urine tox screen came back positive for benzo MRI brain done showed mild to moderate chronic microvascular changes. no acute pathology. CAD. History of cardiac stenting in 2005. Continue Plavix. No clinical evidence of ACS at this time. suspect that the patient has had a progression of CAD since 2005. Functional impairment. Patient is ataxic and unsteady. PT OT eval > recs for SNF Chronic, subacute medical conditions not listed above, abnormal labs and imaging. These would need to be addressed. Could be addressed later on or in the outpatient setting by PCP collaboration with other needed outpatient providers when time and condition are appropriate. Discussed with pt at bedside, all questions answered MRI brain done - no acute pathology ABG showed still hypercapnia this am around 80s. Will do BiPAP q2 on, 2h off and QHS. Reassess ABG in am. Adjusted CIWA score to Librium dosing, added Ativan as well if needed Continue low dose Seroquel 12.5 mg QHS
--- NOTE | 2025-09-11 15:09 | SWNOTE1 ---
SW stopped in pt's room, pt was sleeping with Bipap on. SW called pt's . Pt's was just getting to hospital. SW to speak with her in the room. SW went to room and pt's was sitting in room beside pt. Pt was awake and talking to his . Pt's was asking why he was on the mask (bipap). She stated she has not been able to speak with nurse yet. SW to have nurse come in to discuss in more detail. SW did ask pt how he was feeling? He voiced alright. Pt's stated he does like when therapy comes in to work with him. He stated he wants his legs to work and thinks they will work, but it has been hard. SW did mention to pt and that there is a possibility he may need some rehab at long term facility to get stronger once he is stable for discharge from here. Pt and both shook there heads. They would like to see how pt is doing tomorrow and then go from there. SW in agreement and will stop back tomorrow. SW to message nurse to see if she can stop by and give medical update. Pt may need SNF that can manage high flow oxygen and may need to order bipap? SW to follow up tomorrow.
--- NOTE | 2025-09-11 15:41 | SWNOTE1 ---
ROB spoke with physician and planning on pt needing some kind of rehab at discharge. Likely somewhere that specializes in respiratory therapy, he will need Bipap at discharge. No discharge at this time. ROB spoke with pt and in room in regards to rehab at discharge and the benefit of going to a facility that has respiratory therapy. Pt and in agreement. ROB let them know that [facility] in [place] and [facility] in [place] have 24/7 respiratory therapists. They would like SW to look in to [facility] as they know someone who works there. They are in agreement to have SW send referral. Referral sent to [facility]. Referral included face sheet, ED note, H&P, provider notes, case management report , nursing notes, diagnostic imaging, med list, and PT/OT notes. ROB also emailed Cheryle at [facility] to let her know referral has been sent.
--- NOTE | 2025-09-11 19:30 | ECG_ITS ---
[facility] Test Date: 2025-09-11 Pat Name: BRIAN BARNARD Department: Room: [facility] Gender: Male [place] Report Developer: : 1950 Requested By: [id number] Order Number: [id number] Reading MD: DARIN BOYKIN Measurements Intervals [place] Rate: 134 P: -[id number] ID: [id number] QRS: 74 QRSD: 88 T: 90 QT: 276 QTc: 355 Interpretive Statements 91735 Atrial fibrillation with rapid ventricular response 8305 Short QTc interval 9150 abnormal ECG Compared to ECG 09/06/2025 23:50:18 Sinus tachycardia no longer present Poor R-wave progression no longer present Electronically Signed On 09-12-2025 9:35:19 EDT by DARIN BOYKIN
--- NOTE | 2025-09-11 20:07 | P.EN_ITS ---
Event Note Event Note: Remote night hospitalist coverage Pt developed A fib RVR 135. I started him on cardizem drip starting at 10 mg / hr after a dose of 5 mg IV cardizem push. ordered echo. cardiac consult. Changed Lovenox wt based for embolic CVA prevention. terminal operations manager A/c or the need for anti arrhythmia are to be addressed by card iology.
[2025-09-11] MEDS: DILTIAZEM HCL 25 MG/5 ML VIAL 5 MG IV (20:36)
[2025-09-11] MEDS: DIGOXIN 500 MCG/2 ML AMPUL 250 MCG IV ×2 (20:50→23:31)
[2025-09-11] MEDS: ENOXAPARIN SODIUM 80 MG/0.8 ML SYRINGE SUBQ (20:57)
[2025-09-11] MEDS: 0.9 % SODIUM CHLORIDE 500 ML IV (23:30)
[2025-09-11] MEDS: MIRTAZAPINE 15 MG TABLET 30 MG PO (23:32)
[2025-09-11] MEDS: QUETIAPINE FUMARATE 25 MG TABLET 12.5 MG PO (23:33)
[2025-09-11] MEDS: CLORDIAZEPOXIDE HCl 25 MG CAPSULE PO (23:34)
[2025-09-11] MEDS: ACETAMINOPHEN 325 MG TABLET 650 MG PO (23:38)
[2025-09-12] VITALS (87 sets, daily range): BP systolic 81–126; BP diastolic 51–82; PULSE 62–104; RESP 16; TEMP 36.3–36.9; O2SAT 74–97
--- NOTE | 2025-09-12 | ECG_ITS ---
[facility] Test Date: 2025-09-12 Pat Name: BRIAN BARNARD Department: Room: 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
[2025-09-12] MEDS: SODIUM CHLORIDE 3% INHALATION 15 ML NEB 6 ML IH ×2 (04:33→16:04)
[2025-09-12] MEDS: IPRATROPIUM BROMIDE 0.5 MG/2.5 ML VIAL.NEB IH ×4 (04:33→22:50)
[2025-09-12 04:55] LABS: Allen Test POSITIVE (POSITIVE); HCO3 ABG 41.8 mmol/L (22.0-26.0); O2 Mode BIPAP; Oxygen Saturation ABG 94.2 %; PO2 ABG 65.8 mmHg (80.0-100.0); Puncture Site R RADIAL
[2025-09-12 04:56] LABS: ABG PCO2 75.5 mmHg (35.0-45.0); BIPAP Pressure 20/5
[2025-09-12] MEDS: PANTOPRAZOLE SODIUM 40 MG TABLET.DR PO (05:55)
[2025-09-12 06:37] LABS: Anion Gap 5.2; Blood Urea Nitrogen 38.0 mg/dL (7.0-18.0); Calcium 8.6 mg/dL (8.5-10.1); Carbon Dioxide 38.4 mmol/L (21.0-32.0); Chloride 103 mmol/L (98-107); Estimated GFR (African America >60 (>=60 mL/min/1.73m^2); Estimated GFR (Non-African Ame >60 (>=60 mL/min/1.73m^2); Glucose 213 mg/dL (74-106); Potassium 4.6 mmol/L (3.5-5.1); Sodium 142 mmol/L (136-145)
--- NOTE | 2025-09-12 09:35 | SWNOTE1 ---
Cheryle from [facility] reached out asking the liter flow pt is on at this time. SW to find out. SW did ask if they had supervisor powder and primer canning? Cheryle did send SW a flier with Search Engine Marketing Specialist name and there is also a BALANCE WHEEL FACER as well.
--- NOTE | 2025-09-12 09:40 | SWNOTE1 ---
ROB faxed updated vitals from overnight to this morning to Cheryle at [facility]. Pt is on 40 liters at this time, vapotherm. ROB also advsied Cheryle that pt went in to A-Fib and sent the event note from Dr. Gomez and labs from this morning to Cheryle as well. ROB notified Cheryle at [facility] that Cardiology was also consulted.
[2025-09-12] MEDS: DOXYCYCLINE MONOHYDRATE 100 MG CAPSULE PO ×2 (09:55→20:59)
[2025-09-12] MEDS: ATORVASTATIN CALCIUM 20 MG TABLET PO (09:55)
[2025-09-12] MEDS: CLOPIDOGREL BISULFATE 75 MG TABLET PO (09:55)
[2025-09-12] MEDS: ENSURE HP 237 ML LIQUID PO ×2 (09:56→20:59)
[2025-09-12] MEDS: ENOXAPARIN SODIUM 80 MG/0.8 ML SYRINGE SUBQ ×2 (09:56→21:00)
[2025-09-12] MEDS: FOLIC ACID 1 MG TABLET PO (09:56)
[2025-09-12] MEDS: THIAMINE MONONITRATE (VIT B1) 100 MG TABLET 200 MG PO (09:56)
[2025-09-12] MEDS: METHYLPREDNISOLONE SOD SUCC PF 40 MG/ML VIAL IVP ×2 (09:57→17:03)
[2025-09-12] MEDS: BUDESONIDE 0.5 MG/2 ML AMPULE NEB IH ×2 (11:00→22:50)
[2025-09-12] MEDS: DILTIAZEM HCL 60 MG TABLET 30 MG PO ×3 (11:15→21:00)
[2025-09-12] MEDS: ACETAZOLAMIDE 250 MG TABLET PO ×2 (11:17→21:00)
--- NOTE | 2025-09-12 11:36 | PM.PN ---
Progress Note: Subjective Subjective Interval history: Pt was seen and evaluated at bedside, overnight patient went into Afib with RVR, given Cardizem bolus and digoxin IVP, converted back to NSR. Maintain NSR today. BP controlled and stable, started cardizem oral. No tremors today. Denies any hallucinations anymore. Denies nausea, vomiting. Feeling better overall. Exam Constitutional Vital Signs, click to edit/add: Last Vital Signs Temp 97.4 F L 09/12/25 07:49 Pulse 91 H 09/12/25 11:34 Resp 25 H 09/12/25 11:27 BP 112/69 09/12/25 11:27 Pulse Ox 97 09/12/25 11:34 O2 Del Method BIPAP 09/12/25 11:27 O2 Flow Rate 40 09/12/25 11:01 FiO2 40 09/12/25 11:25 Progress Note: Objective Labs Labs: BMP 09/12/25 06:02 Sodium 142 Potassium 4.6 Chloride 103 Carbon Dioxide 38.4 H BUN 38.0 H Creatinine 0.73 Glucose 213 H Calcium 8.6 Progress Note: A&P Assessment and Plan (1) COPD exacerbation: (2) Hypoxic respiratory failure: Plan Acute COPD exacerbation. R Basilar community-acquired pneumonia. ( Rt base on CT ) Acute on chronic respiratory failure with hypoxia and hypercapnia PE was ruled out on CTA CTA showed extensive COPD, no pulmonary embolism. I reviewed CAT scan imaging. Patient has extensive upper lobe emphysema. Rt basilar infiltration. Start patient on albuterol, Atrovent, Solu-Medrol, ceftriaxone and doxycycline. Influenza and COVID are negative. Requested RS, this came back negative. Other viruses such as adenovirus, parainfluenza, human [place] pneumo virus, others could not be tested at [place]. Thus far, patient is requiring high flow oxygen. wean off as tolerated. Continue to alternate between Vapotherm and BiPAP at night. Patient may qualify for lung reduction surgery given the predominantly upper lobe severe emphysema. He does not follow-up with pulmonary. He may need the PFTs to assess the severity of his emphysema which I suspect is significant. Patient also is at risk having lung cancer. I would recommend the patient to have yearly low-dose radiation CAT scan of the chest to screen for lung cancer to be addressed by PCP. Continue Budesonide BID, PEP, vest therapy. Hypertonic saline nebs/IH New onset Afib with RVR -Pt went into Afib RVR overnight, started on cardizem bolus followed by drip, however BP was soft, pt was given digoxin doses -Pt converted overnight to NSR, maintained NSR -Start Cardizem 30 mg QID , avoiding beta blockers given his severe advanced COPD -Echo ordered -Cardiology consult placed. -Pt was started on Full dose Lovenox for AC by overnight hospitalist coverage. Alcohol use disorder/withdrawal. Patient is vague about the amount of alcohol consumption he drinks. States that he is minimizing his alcohol intake. His stated that the patient has not had alcohol recently. patient on thiamine and folic acid supplements. He is on Valium as needed as directed According to patient's , he barely drinks alcohol these days Cachexia, frailty, muscle wasting, failure to thrive, moderate protein calorie mentation. 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 Patient will likely require investigation for his cachexia and weight loss. This may include but not limited to cancer screening such as prostate exam, EGD, colonoscopy and others to be 100 in the outpatient setting. Meanwhile patient on oral protein supplementation. Visual and audible hallucinations> resolved could be related to his hypoxemia and hypercapnia as well as decompensation of respiratory status. will recheck ABG in am. Could be having Wernicke or Korsakoff encephalopathy. stated that the patient has not had alcohol recently however he may still have Korsakoff encephalopathy. patient on thiamine intravenously as listed above. CT head with no acute pathology urine tox screen came back positive for benzo MRI brain done showed mild to moderate chronic microvascular changes. no acute pathology. After investigation and treatment as above, it seems to be related to his hypercapnia and hypoxia, as his hallucinations resolved with the improvement of his respiratory status and co2 levels. CAD. History of cardiac stenting in 2005. Continue Plavix. No clinical evidence of ACS at this time. suspect that the patient has had a progression of CAD since 2005. Functional impairment. Patient is ataxic and unsteady. PT OT eval > recs for SNF Chronic, subacute medical conditions not listed above, abnormal labs and imaging. These would need to be addressed. Could be addressed later on or in the outpatient setting by PCP collaboration with other needed outpatient providers when time and condition are appropriate. Discussed with pt at bedside, all questions answered Afib with RVR - currently in sinus ABG showed still hypercapnia this am around 75.5. Changed to AVAPS with settings as directed. Discontinue CIWA and Librium Continue low dose Seroquel 12.5 mg QHS Increased Steroids again to Q8h, continue Atrovent QID and Pulmicort nebs, vest therapy Added Diamox BID Serial ABG, will adjust settings as needed. Continue to monitor resp status pending Echo and cardio consult
[2025-09-12 13:21] LABS: HCO3 ABG 39.7 mmol/L (22.0-26.0); Oxygen Saturation ABG 96.2 %; PO2 ABG 75.9 mmHg (80.0-100.0)
[2025-09-12 13:22] LABS: Allen Test POSITIVE (POSITIVE)
[2025-09-12 13:23] LABS: Puncture Site RR
[2025-09-12 13:24] LABS: ABG PCO2 76.7 mmHg (35.0-45.0)
--- NOTE | 2025-09-12 15:04 | SWNOTE1 ---
SW stopped in and spoke with pt and pt's in room. SW let them know that [facility] is able to accept once pt is medically stable. SW did let them both know the highest liter flow they can do at [facility] is 10 liters. They voiced understanding. Pt and in agreement with plan.
--- NOTE | 2025-09-12 15:34 | SWNOTE1 ---
ROB faxed PT/OT and physician note to Cheryle at [facility].
--- NOTE | 2025-09-12 20:01 | CA_ITS ---
Patient Name: BRIAN BARNARD MR#: [id number] : 1950 Exam Date: 09/12/2025 Ordering Doctor: SOCO CHAHAL ECHOCARDIOGRAM REPORT PROCEDURE: CA ECHO DOPPLER COMPLETE INDICATIONS: Atrial fib COMPARISON: None. DESCRIPTION: COMPLETE ECHOCARDIOGRAM Real-time transthoracic echocardiography with 2D, M-mode, spectral and color flow Doppler performed. QUALITY: Technical quality was limited because of lung artifact. LEFT VENTRICLE: Normal chamber size. Borderline left ventricular hypertrophy. LV EF: Global left ventricular systolic function is hyperdynamic. Visual estimation of left ventricular ejection fraction is 70-75%. No significant wall motion abnormalities. DIASTOLIC: Diastolic function is indeterminate. ATRIAL SEPTUM: Inadequately seen. LEFT ATRIUM: Normal chamber size. RIGHT ATRIUM: Normal chamber size. RIGHT VENTRICLE: Normal chamber size. Normal right ventricular systolic function. TRICUSPID VALVE: Normal mobility and thickness. No stenosis with trivial regurgitation. Moderate pulmonary hypertension. RVSP 50mmHg. MITRAL VALVE: Normal mobility and thickness. No evidence of mitral valve stenosis. There is no mitral annular calcification. No mitral regurgitation. AORTIC VALVE: Normal trileaflet appearance. Mildly calcified aortic valve. Normal leaflet mobility. No evidence of aortic valve stenosis. No aortic regurgitation. AORTIC ROOT: Mildly dilated. Measuring 4.1cm. The ascending aorta measures 3.3cm. PULMONIC VALVE: Normal thickness and mobility. No stenosis. Trivial regurgitation. PERICARDIUM: Anterior free space; trivial effusion versus fat pad. IVC: Collapses with inspiration. Normal size. CONCLUSION: 1. Global left ventricular systolic function is hyperdynamic; visually estimated ejection fraction is 70 to 75% 2. Borderline left ventricular hypertrophy 3. The right ventricle is normal in size and systolic function 4. The left atrium is normal in size 5. Moderately elevated right ventricular systolic pressure; RVSP 50 mmHg; this may be inaccurate due to a faint tricuspid regurgitant jet 6. The aortic root is mildly dilated measuring 4.1 cm 7. Anterior free space; trivial effusion versus fat pad Adult Echocardiography Procedure Report Left Ventricle LVEDD (3.7 - 5.6 cm): 3.53 cm LVESD (2.2 - 4.0 cm): 2.42 cm LVIVS thickness (0.6 - 1.2 cm): 1.24 cm LVPW thickness (0.5 - 1.0 cm): 0.97 cm e': 0.04 m/s E - e': 11.66 LVOT Max Gradient: 2.71 mm[Hg] LVOT Area (cm2): 0.82 m/s Peak Velocity (LVOT): 0.82 m/s Mean Velocity (LVOT): 0.50 m/s LVOT Diameter 1.98 cm Left Atrium Left Atrium Systolic Dimension: 2.67 cm Mitral Valve MV E to A Ratio: 0.75 Mitral Valve A-Wave Peak Velocity: 0.70 m/s Mitral Valve E-Wave Peak Velocity: 0.52 m/s Right Ventricle RV Internal Diastolic Dimension: 3.61 cm Aorta AO Root Diam: 4.08 cm Ascending Ao Diam: 3.34 cm Aortic Valve AoV Area (Peak Stuart): 2.59 cm2, 2.59 cm2 AoV Area (VTI): 3.29 cm2, 3.29 cm2 Peak Velocity(Antegrade Flow): 0.98 m/s Peak Gradient(Antegrade Flow): 3.85 mm[Hg] Mean Velocity(Antegrade Flow): 0.57 m/s Mean Gradient(Antegrade Flow): 1.64 mm[Hg] Velocity Time Integral: 11.74 cm Tricuspid Valve Peak Velocity (Regurgitant Flow): 3.36 m/s, 3.41 m/s, 3.44 m/s, 3.18 m/s Pulmonic Valve Peak Velocity: 0.88 m/s Peak Gradient: 2.73 mm[Hg], 3.43 mm[Hg] Right Atrium Right Atrium Systolic Pressure: 36.32 ml, 36.32 ml Dictated by: Nataly Metz M.D. on 09/12/2025 at 15:49 Approved by: Nataly Metz M.D. on 09/12/2025 at 15:54
[2025-09-12] MEDS: MIRTAZAPINE 15 MG TABLET 30 MG PO (20:59)
[2025-09-12] MEDS: QUETIAPINE FUMARATE 25 MG TABLET 12.5 MG PO (21:00)
[2025-09-13] VITALS (74 sets, daily range): BP systolic 94–122; BP diastolic 63–79; PULSE 57–105; RESP 16; TEMP 35.9–36.6; O2SAT 78–98
[2025-09-13] MEDS: METHYLPREDNISOLONE SOD SUCC PF 40 MG/ML VIAL IVP ×3 (04:34→17:31)
[2025-09-13 04:44] LABS: Allen Test POSITIVE (POSITIVE); HCO3 ABG 37.5 mmol/L (22.0-26.0); O2 Mode AVAPS; Oxygen Saturation ABG 98.7 %; PO2 ABG 106.0 mmHg (80.0-100.0); Puncture Site LR
[2025-09-13 04:46] LABS: ABG PCO2 71.0 mmHg (35.0-45.0)
[2025-09-13] MEDS: IPRATROPIUM BROMIDE 0.5 MG/2.5 ML VIAL.NEB IH ×4 (05:02→23:03)
[2025-09-13] MEDS: SODIUM CHLORIDE 3% INHALATION 15 ML NEB 6 ML IH ×2 (05:02→16:26)
[2025-09-13 05:56] LABS: Anion Gap 6.6; Blood Urea Nitrogen 26.0 mg/dL (7.0-18.0); Calcium 8.9 mg/dL (8.5-10.1); Carbon Dioxide 36.9 mmol/L (21.0-32.0); Chloride 106 mmol/L (98-107); Estimated GFR (African America >60 (>=60 mL/min/1.73m^2); Estimated GFR (Non-African Ame >60 (>=60 mL/min/1.73m^2); Glucose 111 mg/dL (74-106); Potassium 4.5 mmol/L (3.5-5.1); Sodium 145 mmol/L (136-145)
[2025-09-13] MEDS: PANTOPRAZOLE SODIUM 40 MG TABLET.DR PO (06:29)
[2025-09-13] MEDS: DILTIAZEM HCL 60 MG TABLET 30 MG PO ×4 (06:29→22:59)
[2025-09-13] MEDS: DOXYCYCLINE MONOHYDRATE 100 MG CAPSULE PO ×2 (08:38→22:58)
[2025-09-13] MEDS: ENSURE HP 237 ML LIQUID PO ×2 (08:38→22:57)
[2025-09-13] MEDS: ACETAZOLAMIDE 250 MG TABLET PO ×2 (08:38→22:58)
[2025-09-13] MEDS: SENNOSIDES/DOCUSATE SODIUM 1 TAB TABLET PO (08:39)
[2025-09-13] MEDS: THIAMINE MONONITRATE (VIT B1) 100 MG TABLET 200 MG PO (08:39)
[2025-09-13] MEDS: FOLIC ACID 1 MG TABLET PO (08:39)
[2025-09-13] MEDS: ATORVASTATIN CALCIUM 20 MG TABLET PO (08:39)
[2025-09-13] MEDS: ENOXAPARIN SODIUM 80 MG/0.8 ML SYRINGE SUBQ ×2 (08:39→22:57)
[2025-09-13] MEDS: CLOPIDOGREL BISULFATE 75 MG TABLET PO (08:39)
--- NOTE | 2025-09-13 09:55 | PT.DAILY ---
Physical Therapy Daily Note PT Daily Note/Assess Start: 09/10/25 10:12 Freq: Status: Active Protocol: Document 09/13/25 09:50 CHRISTIANNE (Rec: 09/13/25 09:55 CHRISTIANNE [id number]) Physical Therapy Daily Note/Assessment Time In/Time Out Time In 09:20 Time Out 09:34 Pain In Pain N/A Pain Out Pain N/A Subjective Subjective Pt supine upon arrival. Off vapotherm today on NC. Pt agreeable to get into chair. Spo2 93% upon arrival. Therapeutic Exercise Time Therapeutic Exercise 4 Minutes (minutes) Therapeutic Exercise 0 Units Therapeutic Exercise Treatment Therapeutic Exercise Pt instructed to complete AP, heel slides, abduction Treatment slides, GS, and QS 10x ea prior to transfers. SpO2 drops to 87% with this. Therapeutic Activity Time Therapeutic Activity 8 Minutes (minutes) Therapeutic Activity 1 Units Therapeutic Activity Treatment Bed Mobility Ability Contact Guard Assist Chair Transfer Minimum Assist Ability Therapeutic Activity Supine>sit CGA with assist for O2 and pulse ox lines. Comments Sits EOB unsupported 3 min while DIRECTOR FURNITURE brushes pts hair. SpO2 79% initially but quickly recovers to 85% within 1 min. Pt sit>stand Alvino. Amb 4' with RW, CGA with short step length. Sits in BS chair upon completion and left under OT's care. Total Physical Therapy Time Total Therapy 12 Minutes Total Physical 1 Therapy Units Summary Daily Note Summary Bed mobility improving. Slow but steady gait to chair. SpO2 drops with activity.
--- NOTE | 2025-09-13 10:30 | CM.NOTE ---
Rounds made with Dr. Ernst, pt on 4L [place] at this time. Pt without hallucinations. Pt's discharge plan is for skilled care at [facility], no discharge today.
--- NOTE | 2025-09-13 10:32 | SWNOTE1 ---
SW stopped in and spoke to see hwo he was feeling. Pt was sitting up in chair. He voiced he was doing alright. Has not had a BM in 4 days or so, they are going to give him some medicine for this. Pt and SW spoke about [facility] for rehab. SW did let him know it will be a good place for him to go for rehab because they have Pulmonology and respiratory 20/06. At this time pt has no concerns or needs.
[2025-09-13] MEDS: BUDESONIDE 0.5 MG/2 ML AMPULE NEB IH ×2 (11:14→23:04)
--- NOTE | 2025-09-13 12:27 | CM.NOTE ---
CRF completed for possible discharge over the weekend.
--- NOTE | 2025-09-13 12:46 | P.PN_ITS ---
Progress Note: Subjective Subjective Interval history: Pt was seen and evaluated at bedside, remains in sinus rhythm, hemodynamically stable. He is out of bed to chair this morning, he slept well last night, tolerated BiPAP. Reports feeling better today, less cough and sputum production. He was successfully weaned off high flow down to 4 L nasal cannula today. continue current management. Exam Narrative Exam Narrative: Const General: cooperative HEENT Normal oropharyngeal mucosa without any ulcers or exudates Eyes: Conjunctiva normal Pulmonary Auscultation: Diminished breath sounds, no crackles, no wheezes Cardiovascular Rate: normal rate Rhythm: regular rhythm Heart Sounds: S1 normal, S2 normal and no murmurs GI Inspection: non-distended Palpation: soft, not firm and nontender. No rigidity or rebound. Deferred Neuro General: alert, awake and oriented x3. No obvious new focal deficit Musculoskeletal: normal range of motion Extrem General: no cyanosis, no pedal edema Psych Appearance: appropriate affect. Grossly normal. Pleasant Constitutional Vital Signs, click to edit/add: Last Vital Signs Temp 97.8 F 09/13/25 07:16 Pulse 64 09/13/25 12:00 Resp 27 H 09/13/25 10:45 BP 111/63 09/13/25 07:17 Pulse Ox 93 L 09/13/25 12:00 O2 Del Method Nasal Cannula 09/13/25 11:18 O2 Flow Rate 4 09/13/25 11:18 FiO2 40 09/13/25 07:00 Progress Note: Objective Labs Labs: [facility] 09/13/25 05:20 Sodium 145 Potassium 4.5 Chloride 106 Carbon Dioxide 36.9 H BUN 26.0 H Creatinine 0.94 Glucose 111 H Calcium 8.9 Progress Note: A&P Assessment and Plan (1) COPD exacerbation: (2) Hypoxic respiratory failure: Plan Acute COPD exacerbation. R Basilar community-acquired pneumonia. ( Rt base on CT ) Acute on chronic respiratory failure with hypoxia and hypercapnia PE was ruled out on CTA CTA showed extensive COPD, no pulmonary embolism. I reviewed CAT scan imaging. Patient has extensive upper lobe emphysema. Rt basilar infiltration. Start patient on albuterol, Atrovent, Solu-Medrol, ceftriaxone and doxycycline. Influenza and COVID are negative. Requested RS, this came back negative. Other viruses such as adenovirus, parainfluenza, human Henriette pneumo virus, others could not be tested at [place]. Thus far, patient is requiring high flow oxygen. wean off as tolerated. Continue to alternate between Vapotherm and BiPAP at night. Patient may qualify for lung reduction surgery given the predominantly upper lobe severe emphysema. He does not follow-up with pulmonary. He may need the PFTs to assess the severity of his emphysema which I suspect is significant. Patient also is at risk having lung cancer. I would recommend the patient to have yearly low-dose radiation CAT scan of the chest to screen for lung cancer to be addressed by PCP. Continue Budesonide BID, PEP, vest therapy. Hypertonic saline nebs/IH New onset Afib with RVR -Pt went into Afib RVR overnight, started on cardizem bolus followed by drip, however BP was soft, pt was given digoxin doses -Pt converted overnight to NSR, maintained NSR -Start Cardizem 30 mg QID , avoiding beta blockers given his severe advanced COPD -Echo ordered and reviewed. -Cardiology consult placed. -Pt was started on Full dose Lovenox for AC by overnight hospitalist coverage. Alcohol use disorder/withdrawal. Patient is vague about the amount of alcohol consumption he drinks. States that he is minimizing his alcohol intake. His stated that the patient has not had alcohol recently. patient on thiamine and folic acid supplements. He is on Valium as needed as directed According to patient's , he barely drinks alcohol these days Cachexia, frailty, muscle wasting, failure to thrive, moderate protein calorie mentation. 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 Patient will likely require investigation for his cachexia and weight loss. This may include but not limited to cancer screening such as prostate exam, EGD, colonoscopy and others to be 100 in the outpatient setting. Meanwhile patient on oral protein supplementation. Visual and auditory hallucinations> resolved could be related to his hypoxemia and hypercapnia as well as decompensation of respiratory status. Could be having Wernicke or Korsakoff encephalopathy. stated that the patient has not had alcohol recently however he may still have Korsakoff encephalopathy. patient on thiamine intravenously as listed above. CT head with no acute pathology urine tox screen came back positive for benzo MRI brain done showed mild to moderate chronic microvascular changes. no acute pathology. After investigation and treatment as above, it seems to be related to his hypercapnia and hypoxia, as his hallucinations resolved with the improvement of his respiratory status and co2 levels. CAD. History of cardiac stenting in 2005. Continue Plavix. No clinical evidence of ACS at this time. suspect that the patient has had a progression of CAD since 2006. Functional impairment. Patient is ataxic and unsteady. PT OT eval > recs for SNF Chronic, subacute medical conditions not listed above, abnormal labs and imaging. These would need to be addressed. Could be addressed later on or in the outpatient setting by PCP collaboration with other needed outpatient providers when time and condition are appropriate. Discussed with pt at bedside, all questions answered Afib with RVR - currently in sinus Continue AVAPS with settings as directed QHS discontinue Seroquel QHS Continue steroids, continue Atrovent QID and Pulmicort nebs, vest therapy Continue Diamox BID ABG in am Continue to monitor resp status Cardiology consult CM following disposition, SNF is the plan
--- NOTE | 2025-09-13 14:08 | SWNOTE1 ---
ROB completed PASRR online and sent the results to Cheryle at [facility] along with updates from today. ROB took packet to med/surge floor in case of discharge over the weekend.
--- NOTE | 2025-09-13 19:43 | PM.CACN ---
History of Present Illness History of Present Illness Consult date: 09/13/25 Requesting physician: OSMAR XIONG Consult reason: atrial fibrillation Chief complaint: exacerbation COPD Narrative: This is a 75-year-old man who is admitted with acute COPD exacerbation. He was noted to have atrial fibrillation with rapid ventricular response that reverted to sinus rhythm. Currently he has been maintained in sinus rhythm. He is being treated for his acute COPD exacerbation. His prior history is significant for coronary artery disease status post 6 stents as he reports, last time in 2005. He has not been following with a parts lister. He denies history of diabetes or hypertension. He is maintained on clopidogrel and atorvastatin. Currently he reports feeling better. He still has shortness of breath. No chest pain. No leg edema. No palpitations. Echocardiogram 09/12/2025 showed hyperdynamic left ventricular systolic function, no significant valvular dysfunction. There was elevated right-sided pressures with an RVSP of 50 mmHg. I reviewed his ECG in atrial fibrillation as well as in sinus rhythm. Review of Systems ROS Status of ROS 10 or more systems reviewed and unremarkable except as noted in history and below [facility] Medical History (Updated 09/13/25 @ 19:48 by JUSTIN NASH) History of bilevel positive airway pressure (BiPAP) therapy ?Z92.89 - Personal history of other medical treatment (ICD-10) Hallucination, visual ?R44.1 - Visual hallucinations (ICD-10) Hallucination ?R44.3 - Hallucinations, unspecified (ICD-10) New onset a-fib ?I48.91 - Unspecified atrial fibrillation (ICD-10) Cancer ?C80.1 - Malignant (primary) neoplasm, unspecified (ICD-10) Family History (Updated 09/07/25 @ 06:06 by Koko Garza RN) Son No problems noted. Sister Cancer Sister Cancer Stroke Mother Myocardial infarct Father Myocardial infarct Social History (Updated 09/07/25 @ 06:07 by Koko Graza RN) Within the past year, how often did you have a drink containing alcohol: never Within the past year, how often did you have six or more drinks on one occasion: never Score interpretation: A score less than 4 is consistent with normal alcohol consumption. 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 Known occupational exposures/hazards: Yes Highest level of school completed/degree received: GED or equivalent Are you now , , , , never or living with a partner: Little interest or pleasure in doing things: not at all Feeling down, depressed, or hopeless: not at all Meds Home Medications and Allergies Home Medications ?Medication ?Instructions ?Recorded ?Confirmed ?Type albuterol sulfate 2.5 mg/3 mL 2.5 mg inhalation Q6H PRN 09/06/25 09/06/25 History (0.083 %) solution for nebulization shortness of breath or wheezing budesonide 160 mcg-glycopyr 9 2 inh inhalation BID 09/06/25 09/06/25 History mcg-formot 4.8 mcg/actuation HFA inhaler (Breztri Aerosphere) clopidogrel 75 mg tablet (Plavix) 75 mg PO DAILY 09/06/25 09/06/25 History doxazosin 2 mg tablet (Cardura) 2 mg PO DAILY 09/06/25 09/06/25 History ezetimibe 10 mg-simvastatin 40 mg 1 tab PO DAILY 09/06/25 09/06/25 History tablet (Vytorin) ipratropium 0.5 mg-albuterol 3 mg 3 ml inhalation Q4H PRN shortness 09/06/25 09/06/25 History (2.5 mg base)/3 mL nebulization of breath or wheezing soln linaclotide 145 mcg capsule 145 mcg PO DAILY 09/06/25 09/06/25 History mirtazapine 30 mg tablet 30 mg PO HS 09/06/25 09/06/25 History omeprazole 20 mg capsule,delayed 20 mg PO .unknown 09/06/25 09/06/25 History release Allergies Allergy/AdvReac Type Severity Reaction Status Date / Time No Known Drug Allergies Allergy Verified 09/06/25 22:23 Exam Constitutional Vital Signs, click to edit/add: Last Vital Signs Temp 97.8 F 09/13/25 07:16 Pulse 84 09/13/25 17:52 Resp 24 H 09/13/25 16:00 BP 99/74 09/13/25 11:54 Pulse Ox 95 09/13/25 17:52 O2 Del Method Nasal Cannula 09/13/25 16:32 O2 Flow Rate 4 09/13/25 16:32 FiO2 40 09/13/25 07:00 Common normals: alert General appearance: cooperative and ill appearing Nutritional appearance: cachectic Orientation/consciousness: Yes awake, Yes oriented to person, Yes oriented to place and Yes oriented to time HENMT Common normals: normocephalic Eye Common normals: conjunctivae normal Chest Common normals: inspection of chest normal Respiratory Auscultation: diminished lung sounds Cardio Common normals: no JVD, regular rate, regular rhythm, S1 normal heart sound and S2 normal heart sound Peripheral pulses: radial pulses present GI Common normals: Normal to inspection, nondistended, normoactive bowel sounds present and soft to palpation Extremity General: no edema Neuro Common normals: oriented x3, moves all extremities and no focal motor deficits Psych Insight: insight good Judgement: judgment good Results Labs and Meds Lab results: Comprehensive Metabolic Panel 09/13/25 Range/Units 05:20 Sodium 145 (136-145) mmol/L Potassium 4.5 (3.5-5.1) mmol/L Chloride 106 (98-107) mmol/L Carbon Dioxide 36.9 H (21.0-32.0) mmol/L BUN 26.0 H (7.0-18.0) mg/dL Creatinine 0.94 (0.70-1.30) mg/dL Glucose 111 H (74-106) mg/dL Calcium 8.9 (8.5-10.1) mg/dL Intake and Output 09/13/25 09/13/25 09/13/25 07:59 15:59 23:59 Intake Total 50 / 50 Output Total 325 / 1620 500 / 500 Balance -325 / -730 -500 / -450 50 / -450 Intake: IV 50 / 50 Ceftriaxone 1,000 mg In 0.9 % 50 / 50 Sodium Chloride 50 ml @ 100 mls /hr IV Q[facility]H [facility] Rx#:[id number] Output: Urine 325 / 1620 500 / 500 Assessment and Plan Assessment and Plan (1) PAF (paroxysmal atrial fibrillation): (2) CAD (coronary artery disease): Qualifiers: Coronary Disease-Associated Artery/Lesion type: [place] artery [place] vs. transplanted heart: [place] heart Associated angina: without angina Qualified Code(s): I25.10 - Atherosclerotic heart disease of [place] coronary artery without angina pectoris (3) COPD exacerbation: (4) Hypoxic respiratory failure: Plan Paroxysmal atrial fibrillation: This was likely triggered by the COPD exacerbation. This is a new diagnosis for him. However given his advanced lung disease he is likely to have recurrence of atrial fibrillation. I agree with the current diltiazem treatment. He is maintained on Lovenox 80 mg SQ twice daily. His [id number] score is 2 due to age and coronary artery disease. Unless there is a contraindication for long-term anticoagulation, I recommend instituting oral anticoagulation on discharge with Eliquis or Xarelto. CAD, prior stenting procedures: No clear evidence of angina. Continue statin therapy. He had been maintained on clopidogrel. If anticoagulation therapy is to be started then clopidogrel should be changed to every other day. He has not seen a parts lister in many years. We will arrange a follow-up in our clinic following discharge.
[2025-09-13] MEDS: POLYETHYLENE GLYCOL 3350 17 GM POWDER PACKET PO (22:56)
[2025-09-13] MEDS: MIRTAZAPINE 15 MG TABLET 30 MG PO (22:57)
[2025-09-13] MEDS: BISACODYL 5 MG TABLET 10 MG PO (22:59)
[2025-09-14] VITALS (50 sets, daily range): BP systolic 108–145; BP diastolic 60–83; PULSE 56–91; RESP 20; TEMP 36.3–36.9; O2SAT 79–100
[2025-09-14] MEDS: METHYLPREDNISOLONE SOD SUCC PF 40 MG/ML VIAL IVP ×3 (01:23→19:35)
[2025-09-14] MEDS: SODIUM CHLORIDE 3% INHALATION 15 ML NEB 6 ML IH ×2 (04:53→16:21)
[2025-09-14] MEDS: IPRATROPIUM BROMIDE 0.5 MG/2.5 ML VIAL.NEB IH ×4 (04:54→22:54)
[2025-09-14] MEDS: PANTOPRAZOLE SODIUM 40 MG TABLET.DR PO (06:07)
[2025-09-14] MEDS: DILTIAZEM HCL 60 MG TABLET 30 MG PO ×4 (06:08→22:23)
[2025-09-14] MEDS: THIAMINE MONONITRATE (VIT B1) 100 MG TABLET 200 MG PO (08:31)
[2025-09-14] MEDS: DOXYCYCLINE MONOHYDRATE 100 MG CAPSULE PO ×2 (08:31→22:22)
[2025-09-14] MEDS: FOLIC ACID 1 MG TABLET PO (08:31)
[2025-09-14] MEDS: ATORVASTATIN CALCIUM 20 MG TABLET PO (08:32)
[2025-09-14] MEDS: ENOXAPARIN SODIUM 80 MG/0.8 ML SYRINGE SUBQ ×2 (08:32→22:22)
[2025-09-14] MEDS: ACETAZOLAMIDE 250 MG TABLET PO (08:32)
[2025-09-14] MEDS: CLOPIDOGREL BISULFATE 75 MG TABLET PO (08:32)
[2025-09-14] MEDS: ENSURE HP 237 ML LIQUID PO ×2 (08:32→22:23)
--- NOTE | 2025-09-14 08:39 | PT.DAILY ---
Physical Therapy Daily Note PT Daily Note/Assess Start: 09/10/25 10:12 Freq: Status: Active Protocol: Document 09/14/25 08:37 CHRISTIANNE (Rec: 09/14/25 08:39 CHRISTIANNE [id number]) Physical Therapy Daily Note/Assessment Time In/Time Out Time In 08:15 Time Out 08:27 Pain In Pain N/A Pain Out Pain N/A Subjective Subjective Pt supine upon arrival. Agrees to bed level ex but not ready to get up to chair yet. Therapeutic Exercise Time Therapeutic Exercise 8 Minutes (minutes) Therapeutic Exercise 1 Units Therapeutic Exercise Treatment Therapeutic Exercise Supine AP, QS, GS, heel slides, abd slides, SAQ, SLR Treatment 10x ea to improve LE strength and maintain mobility. Total Physical Therapy Time Total Therapy 8 Minutes Total Physical 1 Therapy Units Summary Daily Note Summary Able to complete all supine ex actively with increased time to complete.
[2025-09-14] MEDS: BUDESONIDE 0.5 MG/2 ML AMPULE NEB IH ×2 (10:40→22:54)
--- NOTE | 2025-09-14 11:16 | P.PN_ITS ---
Progress Note: Subjective Subjective Interval history: Pt was seen and evaluated at bedside, remains in sinus rhythm, hemodynamically stable. respiratory pat stable, on 4.5 L NC saturating well 97%. No more hallucinations. less cough and sputum production. Doing well so far. Exam Narrative Exam Narrative: Const General: cooperative HEENT Normal oropharyngeal mucosa without any ulcers or exudates Eyes: Conjunctiva normal Pulmonary Auscultation: Diminished breath sounds, no crackles, no wheezes Cardiovascular Rate: normal rate Rhythm: regular rhythm Heart Sounds: S1 normal, S2 normal and no murmurs GI Inspection: non-distended Palpation: soft, not firm and nontender. No rigidity or rebound. Deferred Neuro General: alert, awake and oriented x3. No obvious new focal deficit Musculoskeletal: normal range of motion Extrem General: no cyanosis, no pedal edema Psych Appearance: appropriate affect. Grossly normal. Pleasant Constitutional Vital Signs, click to edit/add: Last Vital Signs Temp 97.6 F 09/14/25 08:28 Pulse 69 09/14/25 10:40 Resp 18 09/14/25 08:28 BP 117/73 09/14/25 08:28 Pulse Ox 97 09/14/25 10:40 O2 Del Method Nasal Cannula 09/14/25 10:40 O2 Flow Rate 4.5 09/14/25 10:40 FiO2 30 09/14/25 04:57 Progress Note: A&P Assessment and Plan (1) PAF (paroxysmal atrial fibrillation): (2) CAD (coronary artery disease): Qualifiers: Coronary Disease-Associated Artery/Lesion type: [place] artery [place] vs. transplanted heart: [place] heart Associated angina: without angina Qualified Code(s): I25.10 - Atherosclerotic heart disease of [place] coronary artery without angina pectoris (3) COPD exacerbation: (4) Hypoxic respiratory failure: Plan Acute COPD exacerbation. R Basilar community-acquired pneumonia. ( Rt base on CT ) Acute on chronic respiratory failure with hypoxia and hypercapnia PE was ruled out on CTA CTA showed extensive COPD, no pulmonary embolism. I reviewed CAT scan imaging. Patient has extensive upper lobe emphysema. Rt basilar infiltration. Start patient on albuterol, Atrovent, Solu-Medrol, ceftriaxone and doxycycline. Influenza and COVID are negative. Requested RS, this came back negative. Other viruses such as adenovirus, parainfluenza, human [place] pneumo virus, others could not be tested at [facility]. Thus far, patient is requiring high flow oxygen. wean off as tolerated. Continue to alternate between Vapotherm and BiPAP at night. Patient may qualify for lung reduction surgery given the predominantly upper lobe severe emphysema. He does not follow-up with pulmonary. He may need the PFTs to assess the severity of his emphysema which I suspect is significant. Patient also is at risk having lung cancer. I would recommend the patient to have yearly low-dose radiation CAT scan of the chest to screen for lung cancer to be addressed by PCP. Continue Budesonide BID, PEP, vest therapy. Hypertonic saline nebs/IH New onset Afib with RVR -Pt went into Afib RVR overnight, started on cardizem bolus followed by drip, however BP was soft, pt was given digoxin doses -Pt converted overnight to NSR, maintained NSR -Start Cardizem 30 mg QID , avoiding beta blockers given his severe advanced COPD -Echo ordered and reviewed. -Cardiology consult placed. -Pt was started on Full dose Lovenox for AC by overnight hospitalist coverage. Alcohol use disorder/withdrawal. Patient is vague about the amount of alcohol consumption he drinks. States that he is minimizing his alcohol intake. His stated that the patient has not had alcohol recently. patient on thiamine and folic acid supplements. He is on Valium as needed as directed According to patient's , he barely drinks alcohol these days Cachexia, frailty, muscle wasting, failure to thrive, moderate protein calorie mentation. 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 Patient will likely require investigation for his cachexia and weight loss. This may include but not limited to cancer screening such as prostate exam, EGD, colonoscopy and others to be 100 in the outpatient setting. Meanwhile patient on oral protein supplementation. Visual and auditory hallucinations> resolved could be related to his hypoxemia and hypercapnia as well as decompensation of respiratory status. Could be having Wernicke or Korsakoff encephalopathy. stated that the patient has not had alcohol recently however he may still have Korsakoff encephalopathy. patient on thiamine intravenously as listed above. CT head with no acute pathology urine tox screen came back positive for benzo MRI brain done showed mild to moderate chronic microvascular changes. no acute pathology. After investigation and treatment as above, it seems to be related to his hypercapnia and hypoxia, as his hallucinations resolved with the improvement of his respiratory status and co2 levels. CAD. History of cardiac stenting in 2005. Continue Plavix. No clinical evidence of ACS at this time. suspect that the patient has had a progression of CAD since 2006. Functional impairment. Patient is ataxic and unsteady. PT OT eval > recs for SNF Chronic, subacute medical conditions not listed above, abnormal labs and imaging. These would need to be addressed. Could be addressed later on or in the outpatient setting by PCP collaboration with other needed outpatient providers when time and condition are appropriate. Discussed with pt at bedside, all questions answered Afib with RVR - currently in sinus Continue AVAPS with settings as directed QHS Continue steroids, continue Atrovent QID and Pulmicort nebs, vest therapy Continue Diamox daily Continue to monitor resp status Cardiology consulted. Inpt appreciated. Plan for Eliquis/Xarelto on discharge Okay to downgrade to Medsurg Continue tele Added Aggressive laxative, monitor for BM. CM following disposition, SNF is the plan
--- OUTSIDE RECORDS SUMMARY | 2025-09-14 11:17 | XMS_ITS | CCD ---
Author Organization [facility] Care Team Providers Care Mandarin Teacher Name Role Phone Radames Mart MD Primary [...] Unavailable Radames Mart MD Primary Care Provider IRINA BOWMAN Attending Unavailable RADAMES MART Attending Unavailable RADAMES MART Attending Unavailable Mayda Castro Attending Unavailable RADAMES MART Primary Care Unavailable Mayda Castro Attending Unavailable RADAMES MART Primary Care Unavailable RADAMES MART Primary Care Unavailable Mayda Castro Attending Unavailable Allergies Allergy Classification Reported Allergen(s) Allergy Type Date of Onset Reaction(s) Facility (1 source) Theophylline Drug Allergy dizziness [employer] Other (1 source) Dust; Translations: [Dust] Propensity to adverse reactions (disorder) [facility] Repository Medications Current Medications Medication Drug [...] morning and at bedtime 0 Active Aclidinium Orion 400 MCG/ACT (1 source) take 1 puff(s) by inhalation once daily Aclidinium Orion 400 MCG/ACT 1 puff Inhalation daily Active [...] / ipratropium bromide 0.167 mg/ml inhalation solution (2 sources) Anticholinergic, beta2-Adrenergic Agonist Start: 02-07-2025 ipratropium-albuterol (Duo-Neb) [...] / glycopyrrolate 0.009 mg/actuat metered dose inhaler (2 sources) Corticosteroid, beta2-Adrenergic Agonist Start: 02-07-2025 take 2 puff(s) by inhalation in the morning Elepgyk-Okohoehzmku-Ajf moterol (Breztri Aerosphere) 160-9-4.8 MCG/ACT aerosol Indications: [...] rs infusion clopidogrel 75 mg oral tablet (6 sources) P2Y12 Platelet Inhibitor clopidogrel (Plavix) 75 MG tablet 1 (one) time each day at the same time. Active doxazosin 2 mg oral tablet (5 sources) alpha-Adrenergic Alex Start: take 1 tablet by mouth at bedtime doxazosin (Cardura) 2 MG tablet Take 2 mg by mouth at bedtime 02/03/2024 Active Start: 05-02-2022 DOXAZOSIN MESY LATE PO take 1 tablet by shirlene th every twenty-four hours Doxazosin Mesylate 2 MG 1 tablet Orally Once a day Active ezetimibe 10 mg / simvastatin 40 mg oral tablet (3 sources) HMG-CoA Reductase Inhibitor, Dietary Cholesterol Absorption [...] Acti ve mirtazapine 30 mg oral tablet (7 sources) Start: 06-21-2023 take 1 tablet by [...] omeprazole 20 mg delayed release oral tablet (6 sources) Proton Pump Inhibitor Start: 02-03-2024 take 1 tablet by mouth before mealtime omeprazole OTC (PriLOSEC OTC) 20 MG EC tablet Take 20 mg by mouth in the morning. Take before meals. 02/03/2024 Active take 1 capsule by mouth once mavis ly PriLOSEC 20 MG 1 capsule Orally Once a day for 30 day(s) Active Oxygen (3 sources) oxygen (O2) gas Inhale 2 L/min continuously. Active Oxygen 2 liters (1 source) Oxygen 2 liters Active prazosin 5 mg oral capsule (2 sources) alpha-Adrenergic Alex take 1 capsule by mouth at bedtime prazosin (Minipress) 5 MG capsule Take 5 mg by mouth at bedtime Active Respiratory Therapy Supplies (Nebulizer/Tubing/Mo uthpiece) kit (2 sources) Start: 5 Respiratory Therapy Supplies (Nebulizer/Tubing/Mout hpiece) [...] acetonide 0.055 mg/actuat metered dose nasal spray (3 sources) Corticosteroid triamcinolone (Nasacort Allergy 24HR) 55 MCG/ACT nasal inhaler 1 (one) time each day at the same time. Active Wixela Inhub 500-50 MCG/DOSE (1 source) Start: 9 take 1 puff(s) by inhalation twice daily Wixela Inhub 500-50 MCG/DOSE 1 puff Inhalation Twice a day for 30 days Apr, Active Problems Active Problems Problem Classification Problem Date Documented Da te Episodic/Chronic Anxiety disorders (6 sources) Anxiety; Translations: [Anxiety disorder, unspecified] Onset: 3 06-15-2023 Chronic Cancer of prostate (8 sources) Malignant neoplasm of prostate; Translations: [Malignant tumor of prostate] Onset: 3 Chronic Cataract (3 sources) Bilateral age-related nuclear cataracts; Translations: [Age-related nuclear cataract, bilateral] Onset: 4 03-29-2024 Chronic Chronic obstructive pulmonary disease and bronchiectasis (7 sources) Emphysema; Translations: [Emphysema, unspecified] Onset: 3 06-15-2023 Chronic Coronary atherosclerosis and other heart disease (3 sources) Coronary atherosclerosis; Translations: [Atherosclerotic heart disease of [place] coronary artery without angina pectoris] Onset: 3 06-15-2023 Chronic Disorders of lipid metabolism (6 sources) Pure hypercholesterolemia; Translations: [Pure hypercholesterolemia, unspecified] Onset: 3 06-15-2023 Chronic Esophageal disorders (3 sources) Gastroesophageal reflux disease; Translations: [Gastro-esophageal reflux disease without esophagitis] Onset: 3 06-15-2023 Chronic Hyperplasia of prostate (1 source) Benign prostatic hyperplasia with lower urinary tract symptoms; Translations: [Benign prostatic hyperplasia with lower urinary tract symptoms] Onset: 5 Chronic Immunizations and screening for infectious disease (1 source) Contact with and (suspected) exposure to tuberculosis; Translations: [Exposure to tuberculosis (event)] Episodic Mood disorders (3 sources) Major depressive disorder; Translations: [Major depressive disorder, single episode, unspecified] Onset: 4 03-29-2024 Chronic Other connective tissue disease (3 sources) Cramp in lower limb; Translations: [Sleep [...] lung field] Episodic Peripheral and visceral atherosclerosis (3 sources) Peripheral vascular disease; Translations: [Peripheral vascular disease, unspecified] Onset: 3 06-15-2023 Chronic Respiratory failure; insufficiency; arrest (adult) (3 sources) Dependence on supplemental oxygen; Translations: [Dependence on supplemental oxygen] Onset: 3 06-15-2023 Chronic Past or Other Problems Problem Classification Problem Date Documented Da te Episodic/Chronic Other and unspecified benign neoplasm (3 sources) History of polyp of colon; Translations: [History of colonic polyps] Onset: 02-26-2022 06-28-2023 Episodic Other connective tissue disease (3 sources) Cramp in lower leg associated with rest; Translations: [Cramp and spasm] Onset: 06-27-2018 06-28-2023 Episodic Other gastrointestinal disorders (4 sources) Constipation; Translations: [Constipation, unspecified] Onset: 06-15-2023 06-15-2023 Episodic Other lower respiratory disease (3 sources) Nodule of lung; Translations: [Solitary pulmonary nodule] Onset: 06-15-2023 06-15-2023 Episodic Other screening for suspected conditions (not mental disorders or infectious disease) (4 sources) Raised prostate specific antigen; Translations: [Elevated prostate specific antigen [PSA]] Onset: 06-15-2023 Episodic Residual codes; unclassified (2 sources) Contact with and (suspected) exposure to other hazardous substances; Translations: [Contact with and (suspected) exposure to other potentially hazardous substances] Onset: 02-07-2025 02-07-2025 Episodic Results Test Name Value Interpretation Reference Range Facility Lab - Other Lab [facility] Lab - Other Lab Results [id number] [facility] BONE [facility] BODYon 022 PA BONE [facility] BODY EXAMINATION: PA BONE [facility] BODY HISTORY: Primary malignant neoplasm of prostate COMPARISON: No relevant comparison available. TECHNIQUE: After obtaining the patient's consent, 25.5 mCi Technetium 99m MDP was injected intravenously. Images were obtained approximately two hours later. FINDINGS: ABNORMALITIES: No abnormal or suspicious radiotracer accumulation. OTHER: Negative. IMPRESSION: 1. No evidence of skeletal metastasis. Electronically authenticated by: BLAYNE YOUNG Date: 2022-07-26 14:47 Normal [facility] Surgical Pathologyon 022 Surgical Pathology (NOTE) -- [...] THE ADENOCARCINOMA IN THE INVOLVED BIOPSIES. FOR FILLING MIXER THE SLIDES OF SPECIMEN B WERE REVIEWED BY A SECOND PATHOLOGIST (FERNANDO). * THIS TEST WAS DEVELOPED AND ITS PERFORMANCE CHARACTERISTICS DETERMINED BY [facility] ANATOMIC PATHOLOGY. IT HAS NOT BEEN [...] SURGICAL PATHOLOGY CONSULTATION Patient Name: BRIAN QUEZADA [facility] Rec: [id number] Path Number: [id number] [employer] [facility] ANATOMIC PATHOLOGY [address] [place] [id number] [facility] Comment on above: Performed By: #### P PPVS #### [employer] [address] [place] [address] Pharmacy Billing Adjudicator: Brady Wilkes MD EKG 12 LeadOrdered By: Ney Ferrara on 04-24-2022 Atrial Rate 91 BPM [employer] Work Phone: P Omak 88 degrees [employer] Work Phone: P-R Interval 158 ms [employer] Work Phone: Q-T Interval 334 ms [employer] Work Phone: QRS Duration 90 ms [employer] Work Phone: QTc Calculation (Bazett) 410 ms [employer] Work Phone: R Omak 42 degrees [employer] Work Phone: T Omak 81 degrees [employer] Work Phone: Ventricular Rate 91 BPM [employer] Work Phone: [employer] Work Phone: EKG 12 Leadon 04-24-2022 Normal sinus rhythm Low voltage QRS Borderline ECG No previous ECGs available [facility]ISH Ferrara, Ney Jhaveri MD - 04/24/2022 Normal sinus rhythm Low voltage QRS Borderline ECG No previous ECGs available [employer] Work Phone: BUN & Creatinineon 2 Creatinine [Mass/Vol] 0.93 mg/dL 0.70 - 1.20 mg/dL [employer] GFR >60 >60 mL/min [employer] GFR Non- >60 >60 mL/min [employer] GFR/1.73 sq M.predicted MDRD (S/P/Bld) [Vol rate/Area] [employer] Comment on above: Average GFR for 60-6 9 years old: 85 mL/min/1.73sq m Chronic Kidney Disease: <60 mL/min/1.73sq m Kidney failure: <15 mL/min/1.73sq m eGFR calculated using average adult body mass. Additional eGFR calculator available at: http://www.Accruit.Meta[employer] Software/multiple_crcl_2012.htm Urea nitrogen (BldV) [Mass/Vol] 10 mg/dL 8 - 23 mg/dL [facility] BUN + Creatinineon 2 (cont.) Normal [facility] Comment on above: Result Comment: Aver age GFR for 60-69 years old: 85 mL/min/1.73sq m Chronic Kidney Disease: <60 mL/min/1.73sq m Kidney failure: <15 mL/min/1.73sq m eGFR calculated using average adult body mass. Additional eGFR calculator available at: http://www.[employer].Meta[employer] Software/multiple_crcl_2011.htm Performed By: #### C BC, BUNCRT, LYTE #### [facility] [address] [place] [address] Pharmacy Billing Adjudicator: Jean-Pierre Gallardo MD Creatinine [Mass/Vol] 0.93 mg/dL Normal 0.70-1.20 [facility] Comment on above: Performed By: #### C BC, BUNCRT, LYTE #### [facility] [address] [place] [address] Pharmacy Billing Adjudicator: Jean-Pierre Gallardo MD GFR, Amer >60 Normal >60 [facility] Comment on above: Performed By: #### C BC, BUNCRT, LYTE #### [facility] [address] [place] [address] Pharmacy Billing Adjudicator: Jean-Pierre Gallardo MD GFR,non Amer >60 Normal >60 [facility] Comment on above: Performed By: #### C BC, BUNCRT, LYTE #### [facility] [address] [place] [address] Pharmacy Billing Adjudicator: Jean-Pierre Gallardo MD Urea nitrogen [Mass/Vol] 10 mg/dL Normal 8-23 [facility] Comment on above: Performed By: #### C BC, BUNCRT, LYTE #### [facility] [address] [place] [address] Pharmacy Billing Adjudicator: Jean-Pierre Gallardo MD CBCon 04-23-2022 Erythrocyte distribution width (RBC) [Ratio] 11.9 % Normal 11.8-14.4 [facility] Comment on above: Performed By: #### C NICK BUNCRT, LYTE #### [facility] [address] [place] [address] Pharmacy Billing Adjudicator: Jean-Pierre Gallardo MD Hematocrit (Bld) [Volume fraction] 45.0 % Normal 40.7-50.3 [facility] Comment on above: Performed By: #### Allan ROMERO BUNCRT, LYTE #### [facility] [address] [place] [address] Pharmacy Billing Adjudicator: Jean-Pierre Gallardo MD Hemoglobin (Bld) [Mass/Vol] 14.1 g/dL Normal 13.0-17.0 [facility] Comment on above: Performed By: #### Allan ROMERO BUNCRT, LYTE #### [facility] [address] [place] [address] Pharmacy Billing Adjudicator: Jean-Pierre Gallardo MD MCH (RBC) [Entitic mass] 30.5 pg Normal 25.2-33.5 [facility] Comment on above: Performed By: #### Allan ROMERO BUNCRT, LYTE #### [facility] [address] [place] [address] Pharmacy Billing Adjudicator: Jean-Pierre Gallardo MD MCHC (RBC) [Mass/Vol] 31.3 g/dL Normal 28.4-34.8 [facility] Comment on above: Performed By: #### Allan ROMERO BUNCRT, LYTE #### [facility] [address] [place] [address] Pharmacy Billing Adjudicator: Jean-Pierre Gallardo MD MCV (RBC) [Entitic vol] 97.4 fL Normal 82.6-102.9 [facility] Comment on above: Performed By: #### TONY HART LYTE #### [facility] [address] [place] [address] Pharmacy Billing Adjudicator: Jean-Pierre Gallardo MD NRBC Automated 0.0 per 100 WBC Normal 0.0 [facility] Comment on above: Performed By: #### Allan ROMERO BUNHEATHER, LYTE #### [facility] [place] [address] Pharmacy Billing Adjudicator: Jean-Pierre Gallardo MD Platelet mean volume (Bld) [Entitic vol] 9.9 fL Normal 8.1-13.5 [facility] Comment on above: Performed By: #### TONY HART LYTE #### [facility] [address] [place] [address]. [place] [address] Pharmacy Billing Adjudicator: Jean-Pierre Gallardo MD Platelets (Bld) [#/Vol] 162 10*3/uL Normal 138-453 [facility] Comment on above: Performed By: #### TONY HART LYTE #### [facility] [address] [place] [address]. [place] [address] Pharmacy Billing Adjudicator: Jean-Pierre Gallardo MD RBC (Bld) [#/Vol] 4.62 10*6/uL Normal 4.21-5.77 [facility] Comment on above: Performed By: #### TONY HART, LYTE #### [facility] [address] [place] [address]. [place] [address] Pharmacy Billing Adjudicator: Jean-Pierre Gallardo MD WBC (Bld) [#/Vol] 9.2 10*3/uL Normal 3.5-11.3 [facility] Comment on above: Performed By: #### C TONY ROMERO LYRENA #### [facility] [address] [place], [place] [id number] Pharmacy Billing Adjudicator: Jean-Pierre Gallardo MD Hematocrit (Bld) [Volume fraction] 45.0 % 40.7 - 50.3 % [facility] Hemoglobin.gastrointes tinal spec 1 Ql (Stl) 14.1 g/dL 13.0 - 17.0 g/dL [facility] MCH (RBC) [Entitic mass] 30.5 pg 25.2 - 33.5 pg [facility] MCHC (RBC) [Mass/Vol] 31.3 g/dL 28.4 - 34.8 g/dL [facility] MCV (RBC) [Entitic vol] 97.4 fL 82.6 - 102.9 fL [facility] NRBC Automated 0.0 0.0 per 100 WBC [facility] Platelet distribution width (Bld) [Ratio] 11.9 % 11.8 - 14.4 % [facility] Platelet mean volume (Bld) [Entitic vol] 9.9 fL 8.1 - 13.5 fL [facility] Platelets (Bld) [#/Vol] 162 10*3/uL [facility] RBC (Bld) [#/Vol] 4.62 10*6/uL 4.21 - 5.7 7 m/uL [facility] WBC (Bld) [#/Vol] 9.2 10*3/uL [facility] Electrolyte Panelon 04-23-20 22 Anion gap [Moles/Vol] 6 mmol/L Low 9 - 17 mmol/L [facility] Chloride [Moles/Vol] 101 mmol/L 98 - 10 7 mmol/L [facility] CO2 [Moles/Vol] 35 mmol/L High 20 - 31 mmol/L [facility] Interpretation and review of laboratory results Abnormal [facility] Potassium [Moles/Vol] 4.6 mmol/L 3.7 - 5.3 mmol/L [facility] Sodium [Moles/Vol] 142 mmol/L 135 - 144 mmol/L [facility] Electrolyteson 04-23-2022 Anion gap [Moles/Vol] 6 mmol/L Low 9-17 [facility] Comment on above: Performed By: #### TONY HART, LYTE #### [facility] [address] [place] [address] Pharmacy Billing Adjudicator: Jean-Pierre Gallardo MD Chloride [Moles/Vol] 101 mmol/L Normal 98-107 [facility] Comment on above: Performed By: #### C NICK BUNCRT, LYTE #### [facility] [address] [place] [address] Pharmacy Billing Adjudicator: Jean-Pierre Gallardo MD CO2 [Moles/Vol] 35 mmol/L High 20-31 [facility] Comment on above: Performed By: #### TONY HART, LYTE #### [facility] [address] [place] [address] Pharmacy Billing Adjudicator: Jean-Pierre Gallardo MD Potassium [Moles/Vol] 4.6 mmol/L Normal 3.7-5.3 [facility] Comment on above: Performed By: #### Allan ROMERO BUNCRT, LYTE #### [facility] [address] [place] [address] Pharmacy Billing Adjudicator: Jean-Pierre Gallardo MD Sodium [Moles/Vol] 142 mmol/L Normal 135-144 [facility] Comment on above: Performed By: #### TONY HART, LYTE #### [facility] [address] [place] [address] Pharmacy Billing Adjudicator: Jean-Pierre Gallardo MD No Panel Informationon 04-23 [facility] Chronic pulmonary change without acute cardiopulmonary process. [facility] RIS CONSOLIDATED EXAMINATION: TWO XRAY VIEWS OF THE CHEST 04/23/2022 9:14 am COMPARISON: None. HISTORY: ORDERING SYSTEM PROVIDED HISTORY: pre-op TECHNOLOGIST PROVIDED HISTORY: Pt in [facility] pre-op Reason for Exam: Pre op prostate surg, May 03, 2022. COPD FINDINGS: There is chronic pulmonary change. There is no acute consolidation or effusion. There is no pneumothorax. The mediastinal structures are unremarkable. The upper abdomen unremarkable. The extrathoracic soft tissues are unremarkable. [facility] Frank Farrar MD - 04/23/2022 EXAMINATION: TWO XRAY VIEWS OF THE CHEST 04/23/2022 9:14 am COMPARISON: None. HISTORY: ORDERING SYSTEM PROVIDED HISTORY: pre-op TECHNOLOGIST PROVIDED HISTORY: Pt in [facility] pre-op Reason for Exam: Pre op prostate surg, May 03, 2022. COPD FINDINGS: There is chronic pulmonary change. There is no acute consolidation or effusion. There is no pneumothorax. The mediastinal structures are unremarkable. The upper abdomen unremarkable. The extrathoracic soft tissues are unremarkable. IMPRESSION: Chronic pulmonary change without acute cardiopulmonary process. [employer] Phone: Radiology Study observation (narrative) [employer] Phone: No Panel InformationOrdered By: Frank Roque on 04-23-2022 [employer] Phone: XR CHEST (2 VW)on 04-23-2022 XR CHEST (2 VW) EXAMINATION: TWO XRAY VIEWS OF THE CHEST 04/23/2022 9:14 am COMPARISON: None. HISTORY: ORDERING SYSTEM PROVIDED HISTORY: pre-op TECHNOLOGIST PROVIDED HISTORY: Pt in [facility] pre-op Reason for Exam: Pre op prostate [...] Frank Roque MD 04/23/22 Final result Normal [facility] Q - PSA (FREE AND TOTAL)on 0 02-02-2022 PSA, % FREE 13 % (calc) Low >25 [facility] [employer] Comment on above: Order Comment: [facility] Testing performed at: QPT, [employer], [address] [facility], [address] [facility], [place], [address], Clay Transporter: Fermín Aj MD [facility] Collection Date/Time: [facility] [...] 30 93 9 (3)Catalona et al.:PAVAN 277: [phone] (1996) (4)Catalona et al.:PAVAN 279: [phone] (1997) (x)These estimates vary with age, ethnicity, [...] mind. PSA was performed using the Jett Anna Immunoassay method. Values obtained from different assay methods cannot be used interchangeably. PSA levels, regardless of value, should not be interpreted as absolute evidence of the presence or absence of disease. Performed By: #### 3 [id number] #### [facility] [address] [place] [address] PSA, FREE 0.9 ng/mL Normal [facility] [employer] Comment on above: Order Comment: [facility] performed at: [employer], [employer] [facility], [address] [facility], [address] [place] [address], [phone], Clay Transporter: Fermín Aj MD [facility] Collection Date/Time: [facility] Results Received Date/Time: [facility] Reported Date/Time: Performed By: #### 3 [id number] #### [facility] [address] [place] [address] PSA, TOTAL 7.0 ng/mL High < OR = 4.0 [facility] [employer] Comment on above: Order Comment: [facility] performed at: [employer], [employer] [facility], [address] [facility] [facility], [address] [place] [address], [phone], Clay Transporter: Fermín Aj MD [facility] Collection Date/Time: [facility] Results Received Date/Time: [facility] Reported Date/Time: Performed By: #### 3 [id number] #### [facility] [address] [place] [address] Complete Blood Count with Au to Diffon 01-25-2022 Basophils (Bld) [#/Vol] 0.07 10*3/uL Normal 0.00-0.20 [facility] [employer] Comment on above: Performed By: #### C BCAD, CMP, LIPD #### [facility] [address] [place] [id number] Basophils/100 WBC (Bld) 1.0 % Normal [facility] [employer] Comment on above: Performed By: #### C BCAD, CMP, LIPD #### [facility] [address] [place] [id number] Eosinophils (Bld) [#/Vol] 0.23 10*3/uL Normal 0.02-0.50 [facility] [employer] Comment on above: Performed By: #### C BCAD, CMP, LIPD #### [facility] [address] [place] [id number] Eosinophils/100 WBC (Bld) 3.2 % Normal [facility] [employer] Comment on above: Performed By: #### C BCAD, CMP, LIPD #### [facility] [address] [place], [place] [id number] Erythrocyte distribution width (RBC) [Ratio] 11.9 % Normal 11.0-15.0 [facility] Specialist Comment on above: Performed By: #### C BCAD, CMP, LIPD #### [facility] [address] [place], [place] [id number] Hematocrit (Bld) [Volume fraction] 43.2 % Normal 38.5-50.0 [facility] Specialist Comment on above: Performed By: #### C BCAD, CMP, LIPD #### [facility] [address] [place], [place] [id number] Hemoglobin (Bld) [Mass/Vol] 14.3 g/dL Normal 13.0-17.1 [facility] Specialist Comment on above: Performed By: #### C BCAD, CMP, LIPD #### [facility] [address] [place], [place] [id number] Lymphocytes (Bld) [#/Vol] 2.0 10*3/uL Normal 0.9-3.9 [facility] Specialist Comment on above: Performed By: #### C BCAD, CMP, LIPD #### [facility] [address] [place], [place] [id number] Lymphocytes/100 WBC (Bld) 28.0 % Normal [facility] Specialist Comment on above: Performed By: #### C BCAD, CMP, LIPD #### [facility] [address] [place], [place] [id number] MCH (RBC) [Entitic mass] 31.0 pg Normal 27.0-33.0 [facility] Specialist Comment on above: Performed By: #### C BCAD, CMP, LIPD #### [facility] [address] [place], [place] [id number] MCHC (RBC) [Mass/Vol] 33.1 g/dL Normal 32.0-36.0 [facility] Comment on above: Performed By: #### C BCAD, CMP, LIPD #### [facility] [address] [place], [place] [id number] MCV (RBC) [Entitic vol] 94 fL Normal 80-100 [facility] Specialist Comment on above: Performed By: #### C BCAD, CMP, LIPD #### [facility] [address] [place], [place] [id number] Monocytes (Bld) [#/Vol] 0.7 10*3/uL Normal 0.2-0.9 [facility] Specialist Comment on above: Performed By: #### C BCAD, CMP, LIPD #### [facility] [address] [place], [place] [id number] Monocytes/100 WBC (Bld) 9.3 % Normal [facility] Specialist Comment on above: Performed By: #### C BCAD, CMP, LIPD #### [facility] [address] [place], [place] [id number] Neutrophils (Bld) [#/Vol] 4.2 10*3/uL Normal 1.5-7.8 [facility] Specialist Comment on above: Performed By: #### C BCAD, CMP, LIPD #### [facility] [address] [place], [place] [id number] Neutrophils/100 WBC (Bld) 58.4 % Normal [facility] Specialist Comment on above: Performed By: #### C BCAD, CMP, LIPD #### [facility] [address] [place], [place] [id number] Platelet mean volume (Bld) [Entitic vol] 10.20 fL Normal 7.50-12.50 [facility] Comment on above: Performed By: #### C BCAD, CMP, LIPD #### [facility] [address] [place], [place] [id number] Platelets (Bld) [#/Vol] 151 10*3/uL Normal 140-400 [facility] Specialist Comment on above: Performed By: #### C BCAD, CMP, LIPD #### [facility] [address], [place] [id number] RBC (Bld) [#/Vol] 4.61 10*6/uL Normal 4.20-5.80 [facility] Specialist Comment on above: Performed By: #### C BCAD, CMP, LIPD #### [facility] [address], [place] [id number] RDW-SD 41.6 fL Normal 37.0-50.0 [facility] [employer] Comment on above: Performed By: #### C BCAD, CMP, LIPD #### [facility] [address], [place] [id number] WBC (Bld) [#/Vol] 7.2 10*3/uL Normal 3.8-11.0 [facility] [place] [employer] Comment on above: Performed By: #### C BCAD, CMP, LIPD #### [facility] [address], [place] [id number] Comprehensive Metabolic Pane champ 01-25-2022 Albumin [Mass/Vol] 4.5 g/dL Normal 3.6-5.1 [facility] [place] [employer] Comment on above: Performed By: #### C BCAD, CMP, LIPD #### [facility] [address], [place] [id number] Albumin/Globulin [Mass ratio] 2.0 {ratio} Normal 1.0-2.5 [facility] [employer] Comment on above: Performed By: #### C BCAD, CMP, LIPD #### [facility] [address], [place] [id number] ALP [Catalytic activity/Vol] 78 U/L Normal 40-129 [facility] [employer] Comment on above: Performed By: #### C BCAD, CMP, LIPD #### [facility] [address], [place] [id number] ALT [Catalytic activity/Vol] 17 U/L Normal 9-46 [facility] [employer] Comment on above: Result Comment: 10/28 Female reference range changed. Performed By: #### C BCAD, CMP, LIPD #### [facility] [address], [place] [id number] Anion gap [Moles/Vol] 15 mmol/L Normal 12-20 [facility] Specialist Comment on above: Result Comment: Effe ctive 12/03/2019 reference range changed. Performed By: #### C BCAD, CMP, LIPD #### [facility] [address], [place] [id number] AST [Catalytic activity/Vol] 20 U/L Normal 10-40 [facility] Comment on above: Performed By: #### C BCAD, CMP, LIPD #### [facility] [address], [place] [id number] Bilirubin [Mass/Vol] 0.53 mg/dL Normal 0.30-1.20 [facility] Comment on above: Performed By: #### C BCAD, CMP, LIPD #### [facility] [address], [place] [id number] BUN/CREA 11 Ratio Normal 6-22 [facility] Comment on above: Performed By: #### C BCAD, CMP, LIPD #### [facility] [address], [place] [id number] Calcium [Mass/Vol] 10.0 mg/dL Normal 8.6-10.2 [facility] Comment on above: Performed By: #### C BCAD, CMP, LIPD #### [facility] [address], [place] [id number] Chloride [Moles/Vol] 103 mmol/L Normal 98-107 [facility] Comment on above: Performed By: #### C BCAD, CMP, LIPD #### [facility] [address], [place] [id number] CO2 [Moles/Vol] 30 mmol/L Normal 20-31 [facility] Comment on above: Performed By: #### C BCAD, CMP, LIPD #### [facility] [address], [place] [id number] Creatinine [Mass/Vol] 1.1 mg/dL Normal 0.7-1.4 [facility] Comment on above: Performed By: #### C BCAD, CMP, LIPD #### [facility] [address], [place] [id number] eGFRAA 81 mL/min/1.73m2 Normal >60 [facility] Specialist Comment on above: Performed By: #### C BCAD, CMP, LIPD #### [facility] [address], [place] [id number] eGFRNAA 67 mL/min/1.73m2 Normal >60 [place] [employer] Comment on above: Performed By: #### C BCAD, CMP, LIPD #### [facility] [address], [place] [id number] Globulin (S) [Mass/Vol] 2.3 g/dL Normal 1.9-3.7 [facility] [employer] Comment on above: Performed By: #### C BCAD, CMP, LIPD #### [facility] [address], [place] [id number] Glucose [Mass/Vol] 96 mg/dL Normal 65-99 [facility] [employer] Comment on above: Result Comment: For FASTING Glucose --- ADA reference ranges: Normal 65-99 mg/dl Prediabetes 100-125 Diabetes >/= 126 Performed By: #### C BCAD, CMP, LIPD #### [facility] [address], [place] [id number] Potassium [Moles/Vol] 4.3 mmol/L Normal 3.5-5.5 [facility] Specialist Comment on above: Performed By: #### C BCAD, CMP, LIPD #### [facility] [address], [place] [id number] Protein [Mass/Vol] 6.8 g/dL Normal 6.1-8.1 [facility] [employer] Operator Comment on above: Performed By: #### C BCAD, CMP, LIPD #### [facility] [address] [place], [place] [id number] Sodium [Moles/Vol] 143 mmol/L Normal 135-146 [facility] [employer] Comment on above: Performed By: #### C BCAD, CMP, LIPD #### [facility] [address] [place], [place] [id number] Urea nitrogen [Mass/Vol] 12 mg/dL Normal 7-25 [facility] [employer] Comment on above: Performed By: #### C BCAD, CMP, LIPD #### [facility] [address] [place], [place] [id number] Lipid Panelon 01-25-2022 Cholesterol [Mass/Vol] 162 mg/dL Normal 125-200 No [facility] [employer] Comment on above: Result Comment: Low risk < 200mg/dL Borderline risk 201-239 mg/dl High risk > or equal to 240 Performed By: #### C BCAD, CMP, LIPD #### [facility] [address] [place], [place] [id number] Cholesterol in HDL [Mass/Vol] 59 mg/dL Normal >40 [facility] [employer] Comment on above: Result Comment: High Cardiovascular Risk HDL <40 mg/dL Low Cardiovascular Risk HDL > or equal to 60 mg/dl Performed By: #### C BCAD, CMP, LIPD #### [facility] [address], [place] [id number] Cholesterol in LDL [Mass/Vol] 79 mg/dL Normal [facility] Specialist Comment on above: Result Comment: LDL ATP III CLASSIFICATION LDL less than 100 mg/dl Optimal LDL 100-129 mg/dl Near or above optimal LDL 130-159 Borderline high LDL 160-189 High LDL greater than 189 mg/dl Very High Performed By: #### C BCAD, CMP, LIPD #### [facility] [address] [place], [place] [id number] Cholesterol in VLDL [Mass/Vol] 24 mg/dL Normal [facility] Specialist Comment on above: Performed By: #### C BCAD, CMP, LIPD #### [facility] [address] [place], [place] [id number] Cholesterol.total/Chol esterol in HDL [Mass ratio] 3 {ratio} Normal [facility] Specialist Comment on above: Performed By: #### C BCAD, CMP, LIPD #### [facility] [address] [place], [place] [id number] Triglyceride [Mass/Vol] 121 mg/dL Normal 30-150 [facility] [employer] Comment on above: Result Comment: TRIG ATPIII CLASSIFICATIONS TRIG less than 150 mg/dl Normal TRIG 150-199 mg/dl Borderline High TRIG 200-500 mg/dl High TRIG greather than 500 mg/dl Very High Performed By: #### C BCAD, CMP, LIPD #### [facility] [address] [place], [place] [id number] PSA SCREEN (MEDICARE)on 12-30 TPSA 5.940 ng/mL High <4.000 [facility] [employer] Comment on above: Result Comment: PSA Test Method: ECLIA/Gilberto e 601 Performed By: #### P #### [facility] [address] [place], [place] [id number] Vital Signs Date Time Vital Sign Value Performing Clinician Facility 08-24-2022 10:30-0400 Body height 177.8 cm Orlando Reedgloria Other [employer] Other 08-24-2022 10:30-0400 Body mass index (BMI) [Ratio] 22.67 kg/m2 Orlando Reedgloria Other [employer] Other 08-24-2022 10:30-0400 Body weight 71.67 kg Orlando Reedgloria Other [employer] Other 08-24-2022 10:30-0400 Diastolic blood pressure 86 mm[Hg] Orlando Dittgloria Other [employer] Other 08-24-2022 10:30-0400 Systolic blood pressure 118 mm[Hg] Orlando Reedgloria Other [employer] Other 05-03-2022 12:15-0400 Body temperature 98.2 [degF] Mayda Castro MD Work Phone: [employer] 05-03-2022 12:15-0400 Diastolic blood pressure 89 mm[Hg] Mayda Castro MD Work Phone: [employer] 05-03-2022 12:15-0400 Heart rate 77 /min Mayda Castro MD Work Phone: [employer] 05-03-2022 12:15-0400 Respiratory rate 15 /min Mayda Castro MD Work Phone: [employer] 05-03-2022 12:15-0400 SaO2% (BldA) [Mass fraction] 98 % Mayda Castro MD Work Phone: [employer] 05-03-2022 12:15-0400 Systolic blood pressure 115 mm[Hg] Mayda Castro MD Work Phone: [facility] [employer] 05-03-2022 10:06-0400 Body height 177.8 cm Mayda Castro MD Work Phone: [facility] [employer] 05-03-2022 10:06-0400 Body mass index (BMI) [Ratio] 22.96 kg/m2 Mayda Castro MD Work Phone: [facility] [employer] 05-03-2022 10:06-0400 Body weight 72.58 kg Mayda Castro MD [facility] Phone: [facility] 04-23-2022 08:05-0400 SaO2% (BldA) [Mass fraction] 95 % Sta 1 [employer] 04-23-2022 08:02-0400 Body height 177.8 cm Sta 1 [facility] [employer] 04-23-2022 08:02-0400 Body mass index (BMI) [Ratio] 22.96 kg/m2 Sta 1 [employer] 04-23-2022 08:02-0400 Body temperature 97.7 [degF] Sta 1 [facility] [employer] 04-23-2022 08:02-0400 Body weight 72.58 kg Sta 1 [employer] 04-23-2022 08:02-0400 Diastolic blood pressure 68 mm[Hg] Sta 1 [facility] [employer] 04-23-2022 08:02-0400 Heart rate 100 /min Sta 1 [employer] 04-23-2022 08:02-0400 Respiratory rate 24 /min Sta 1 [employer] 04-23-2022 08:02-0400 Systolic blood pressure 132 mm[Hg] Sta 1 [facility] [employer] Encounters Encounter Date Encounter Type Care Provider Facility Start: 09-06-2025 End: 09-08-2025 Clinisync Result Encounter Generic External Data Provider [facility] Department Unsolicited Start: 09-06-2025 End: 09-08-2025 [employer]inis[employer] Result Encounter Generic External Data Provider [facility] External Department Unsolicited Start: 08-01-2025 End: 08-01-2025 ambulatory Mayda Castro Facility: [facility] Start: 07-23-2025 ambulatory Mayda Castro Facility : [facility] Start: 07-16-2025 End: 07-16-2025 ambulatory RADAMES MART Facility: [facility] Start: 05-13-2025 End: 05-29-2025 [...] 08-24-2022 End: 08-24-2022 ambulatory Orlando Valencia Other [employer] Other Start: 08-24-2022 [facility] visit new patient Orlando Valencia [facility] G[facility] Start: 08-04-2022 End: 08-05-[address] DOCTOR GARZON Facility:[facility] Start: 07-26-2022 End: 07-27-[address] RADAMES MART Facility:[facility] Start: 05-03-2022 End: 05-03-2022 ambulatory MAYDA CASTRO [facility] Start: 05-03-2022 End: 05-03-2022 Subsequent hospital visit by physician Mayda Castro MD Work Phone: [facility] Comment on above: PSA elevation Start: 04-23-2022 End: 04-26-2022 ambulatory MAYDA CASTRO [facility] Start: 04-23-2022 End: 04-28-2022 ambulatory RADAMES MART [facility] Start: 04-23-2022 End: 04-25-2022 Subsequent hospital visit by physician Rina X-Ray [facility] Radiology Comment on above: Arrived Start: 04-23-2022 End: 04-27-2022 Subsequent hospital visit by physician Rina Pat 1 [facility] PRE-ADMIT TESTING Procedures Date Procedure Procedure Detail Performing Clinician Start: 09-06-2025 BLOOD CULTURE 2 Generic External Data Provider Start: 09-06-2025 BLOOD CULTURE 1 Generic External Data Provider Start: 04-04-[address] DOCTOR GARZON Comment on above: Performed By: #### P SAD #### [facility] [address] [place] [address] Dr. Mireya Tabor Start: 02-05-[address] DOCTOR GARZON Comment on above: Performed By: #### P SAD #### [facility] [address] [address] [address] Mireya Tabor Start: 08-04-[address] DOCTOR GARZON Comment on above: Performed By: #### P SAD #### [facility] [address] [place] [address] Dr. Mireya Tabor Start: 04-23-2022 Radiologic exam [...] ant neoplasm of colon [facility] Start: 09-01-2025 Influenza vaccination Influenza Vacc ine (#1) [facility] Start: 02-07-2025 End: 02-07-2025 Patient encounter procedure 02/07/2025 1:00 PM EDT Office Visit [facility] [address] [place] [address] Irina Bowman PA [address] [place] [address] Arrived [facility] Comment on above: Arrived Start: 07-29-2024 Influenza vaccination Influenza Vacc ine (#1) [facility] Start: 01-25-2023 Lipid panel Lipids [facility] Start: 07-29-2022 Influenza vaccination Flu vacc ine (Season Ended) [facility] Start: 05-03-2022 End: 05-03-2022 Admission to same day surgery center 05/03/2022 Surgery IP Unit Mayda Castro MD [address] [place] [address] FUSION PROSTATE BIOPSY WITH ULTRASOUND MRI WAS AT [facility] ON 03/12 [facility] Comment on above: FUSION PROSTATE BIOP SY WITH ULTRASOUND MRI WAS AT [facility] ON 03/12 Start: 05-03-2022 End: 05-03-2022 Anesthesia consultation 05/03/2022 Anesthesia Event IP Unit Fish Rider MD [address] [place] [address] [facility] Start: 05-03-2022 Subsequent hospital visit by physician 05/03/2022 Hospital Encounter IP Unit Mayda Castro MD [address] [place] [address] [facility] Start: 05-03-2022 End: 05-03-2022 Biopsy prostate incisional any approach [facility] Start: 05-31-2020 Pneumococcal 65+ yea rs Vaccine (2 - PCV) Pneumococcal 65+ years Vaccine (2 - PCV) [facility] Start: 2017 Abdominal aortic aneurysm screening AAA screen [employer] Start: 2002 Shingles vaccine (1 of 2) Shingles vaccine (1 of 2) [employer] Start: 1997 Screening for malign ant neoplasm of colon [facility] [employer] Start: 1992 Prostate specific antigen measurement Prostate Specific Antigen (PSA) Screening or Monitoring [facility] Start: 1971 DTaP/Tdap/Td vaccine (1 - Tdap) DTaP/Tdap/Td vaccine (1 - Tdap) [employer] Start: 1970 Hepatitis C screening Hepatitis C sc reen [facility] [employer] Start: 1964 Depression Screen Depression Screen [facility] Start: 1952 Annual Wellness Visi t (AWV) Annual Wellness Visit (AWV) [facility] Start: 1950 Screening for malign ant neoplasm of colon [facility] BLOOD CULTURE 1 BLOOD CULTURE 1 Lab Routine 09/06/2025 10:14 PM EDT [facility] BLOOD CULTURE 2 BLOOD CULTURE 2 Lab Routine 09/06/2025 11:10 PM EDT [facility] Continuous pulse oximetry Pulse oximetry, continuous Respiratory Care Routine Every 4hr until discontinued starting 05/04/2022 [employer] Work Phone: Comment on above: Every 4hr until disc ontinued starting 05/04/2022 Surgical Pathology Surgical Path ology Lab Routine PSA elevation Release Upon Ordering for 1 Occurrences starting 05/03/2022 [employer] Work Phone: Comment on above: Release Upon Orderin g for 1 Occurrences starting 05/03/2022 End: 05-03-2022 SURGICAL PATHOLOGY REPORT SURGICAL PATHOLOGY REPORT Lab Routine Once for 1 Occurrences starting 05/03/2022 until 05/03/2022 [employer] Work Phone: Comment on above: Once for 1 Occurrenc es starting 05/03/2022 until 05/03/2022 Immunizations Immunization Date Immunization Notes Care Provider Johnny wu 02-03-2024 Influenza, High-dose Seasonal, Quadrivalent, Preservative Free Irina Hemmer PA Work Phone: [facility] 02-03-2024 Pneumococcal Conjuga te PCV 20 Irina Hemmer PA Work Phone: [facility] 02-03-2024 influenza virus vacc ine, unspecified formulation Irina Hemmer PA Work Phone: [facility] 10-19-2022 Influenza, Seasonal, Quadrivalent, Adjuvanted Irina Hemmer PA Work Phone: [facility] 02-12-2022 Influenza, Seasonal, Quadrivalent, Adjuvanted Irina Hemmer PA Work Phone: [facility] 02-02-2022 COVID-19, Pfizer Pur ple top, DILUTE for use, 12+ yrs, 30mcg/0.3mL dose Sta Rm [employer] Work Phone: 01-29-2021 COVID-19, Pfizer Pur ple top, DILUTE for use, 12+ yrs, 30mcg/0.3mL dose Sta Rm [employer] Work Phone: 01-08-2021 COVID-19, Pfizer Pur ple top, DILUTE for use, 12+ yrs, 30mcg/0.3mL dose Sta Rm [employer] Work Phone: 09-20-2020 influenza, high dose seasonal, preservative-free Irina Hemmer PA Work Phone: [facility] 09-20-2020 Influenza, High-dose Seasonal, Quadrivalent, Preservative Free Irina Hemmer PA Work Phone: [facility] 06-25-2020 zoster vaccine recombinant Irina Hemmer PA Work Phone: [facility] 01-28-2020 pneumococcal polysaccharide vaccine, 23 valent Irina Hemmer PA Work Phone: [facility] 01-28-2020 zoster vaccine recombinant Irina Hemmer PA Work Phone: [facility] 10-31-2019 influenza, high dose seasonal, preservative-free Irina Hemmer PA Work Phone: [facility] 10-31-2019 Influenza, High-dose Seasonal, Quadrivalent, Preservative Free Irina Hemmer PA Work Phone: [facility] 05-31-2019 pneumococcal polysaccharide vaccine, 23 valent Irina Hemmer PA Work Phone: [facility] 09-29-2017 influenza, high dose seasonal, preservative-free Irina Hemmer PA Work Phone: [facility] 09-14-2016 influenza, injectabl e, quadrivalent, contains preservative Irina Hemmer PA Work Phone: [facility] 09-14-2016 influenza, injectabl e, quadrivalent, preservative free Irina Hemmer PA Work Phone: [facility] 09-06-2015 influenza virus vacc ine, unspecified formulation Irina Hemmer PA Work Phone: [facility] 08-28-2014 influenza virus vacc ine, unspecified formulation Irina Hemmer PA Work Phone: [facility] 11-08-2013 influenza virus vacc ine, unspecified formulation Irina Hemmer PA Work Phone: [facility] 10-28-2012 pneumococcal polysaccharide vaccine, 23 valent Irina Hemmer PA Work Phone: [facility] 02-27-1992 tetanus toxoid, redu franchesca diphtheria toxoid, and acellular pertussis vaccine, adsorbed Irina Hemmer PA Work Phone: [facility] Payers Date Payer Category Payer Private Health Insurance [employer] [id number] 2017 Medicare MEDICARE [id number] 1959 Medicare [id number] 1959 Private Health Insurance [id number] 1952 Unknown [id number] .177 1952 Unknown [id number] .177 1952 Unknown [id number] .177 1952 Unknown [id number] .593 1952 Unknown [id number] .593 1952 Unknown [id number] .593 1952 Unknown [id number] [id number] .593 1952 Unknown [id number] [id number] .1259 1952 Unknown [id number] [id number] .1259 1952 Unknown [id number] .1259 1952 Unknown [id number] .718 1950 Unknown [id number] 1950 Unknown [id number] .718 Social History Date Type Detail Facility Start: 04-23-2022 End: 06-15-2023 Tobacco smoking status [facility] Ex-smoker [employer] Phone: End: 11-28-2006 History of tobacco use Current smoker [employer] Phone: Start: 04-23-2022 End: 06-15-2023 Tobacco use and exposure Smokeless tobacco non-user [employer] Phone: Start: 04-23-2022 End: 02-07-2025 Alcohol intake Current drinker of alcohol (finding) [employer] Phone: Start: 04-23-2022 End: 02-07-2025 Alcohol intake [employer] Phone: Start: 1950 Sex Assigned At Not on file B ON [employer] Phone: Start: 04-23-2022 End: 05-03-2022 Exposure to SARS-CoV-2 (event) Not sure [employer] Phone: Start: 05-23-2024 End: 02-07-2025 Sex Assigned At [facility] I Had Cancer Other History of tobacco use Cigarette Smoker [facility] Start: 06-21-2023 Alcohol Comment caffeine 1-2 c ups per day [facility] Start: 02-09-2023 Sex Male [facility] Clinical Notes 04-23-2022 to 07-31-2025 Telephone Encounter - Lolita Allisonleif - 05/29/2025 1:52 PM EDTTelephone Encounter - Lolita Allisonleif - 05/29/2025 1:52 PM EDTTelephone Encounter - Lolita Allisonleif - 05/20/2025 9:28 AM EDT Note Date & Type Note Facility 07-31-2025 Note - From: Drea Chopra (Urology Clinical Pool ([facility])) Sent: 07/31/2025 14:24:29 EDT Subject: General Message Caller Name: BRIAN QUEZADA; Caller Number: Jey , M Pt called stated had not received medication Orgovyx sent to [facility]. Spoke with Pharmacist Arlette, who stated she was waiting for insurance coverage ID # and pt should be receiving medication soon by delivery. Pt called and notified. [facility] 07-17-2025 Note - From: Drea Chopra Sent: 07/17/2025 08:14:01 EDT Subject: General Message Caller Name: BRIAN QUEZADA; Caller Number: Jey , M Refill request Orgovyx (Relugolix) 120mg tablet, 1 tablet orally once a day, #30, 11 refills. [facility] Needs to be seen in office in 3-4 months. Pt next appointment must kept for more refills per Dr. Castro. [facility] 05-29-2025 Telephone encounter Note Form atting of this note might be different from the original. Lv 3rd attempt to contact no contact letter sent [facility] 05-29-2025 Miscellaneous Notes Formattin g of this note might be different from the original. Lv 3rd attempt to contact no contact letter sent Patient stated they will call back and schedule within the next couple of days Paitent is overdue for mawv - lvm trying to schedule appt documented in this encounter [facility] 05-20-2025 Telephone encounter Note Form atting of this note might be different from the original. Patient stated they will call back and schedule within the next couple of days [facility] 05-13-2025 Telephone encounter Note Form atting of this note might be different from the original. Paitent is overdue for mawv - lvm trying to schedule appt [facility] 08-24-2022 Evaluation note Encounter Date Diagnosis Assessment Notes Jul, Abdominal distension (ICD-10 - R14.0) Jul, Constipation (ICD-10 - K59.00) OBTAIN COLONOSCOPY FROM [facility] MAY USE LINZESS NEEDED F/U PRN [employer] Other 06-06-2022 Hospital Discharge instructions* Instructions* Mayda Castro MD - 05/03/2022 Patricio, Everything went excellent today. Biopsy results will come back in 1 to 1.5 weeks. We will sit down and discuss this in my office. Please resume your Plavix on Tuesday. Okay to resume all other homemedications today. Regular activity. No restrictions. Regular diet. Dr. Mayda Moralez MD documented in this encounterB[facility] Work Phone: [phone]) 304-390205-27-2022 History of Present illness Narrative* Erin Mclaughlin APRN - FLAVIA - 04/23/2022 8:00 AM EDT PAT Progress Note Pt Name: Brian Quezada Birthdate: 1950 Date of evaluation: 04/23/2022 [x] Called to PAT. I spoke to the patient, Brian Quezada, a 71 y.o. male, who is scheduled for an upcoming FUSION PROSTATE BIOPSY WITH ULTRASOUND MRI WAS AT [facility] ON 03/12 by Mayda Castro MD for [...] ms QTc Calculation (Bazett) 410 ms P Om[place] 88 degrees R Om[place] 42 degrees T Omak 81 degrees CBC Collection Time: 04/23/22 9:11 [...] Chronic pulmonary change without acute cardiopulmonary process. Erin Mclaughlin APRN - FLAVIA Electronically signed 04/23/2022 at 1:55 PM [facility] [employer] Phone: evaluation note* Diagnosis PSA elevation Elevated prostate specific antigen (PSA) documented in this encounter [employer] Phone: History general Narrative - Reported* Type [...] History wisdom teeth Hospitalization History see above [employer] Other Reason for visit Narrative* Auth/Cert Specialty Diagnoses / Procedures Referred By Dat t Referred To Contact Diagnoses Elevated PSA DX ELEVATED PSA Procedures MS BIOPSY OF PROSTATE,INCISIONAL FUSION PROSTATE BIOPSY WITH ULTRASOUND MRI WAS AT [facility] ON 03/12 Mayda Castro MD [address] [place] [address] [employer] [address] [place] [address] Referral ID Status Reason Start Date Expiration Date Visits Re quested Visits Authorized [id number] 1 1 [employer] Phone: Summary Purpose Family History No Family [...] section and content) DATE CREATED AUTHOR 02/05/2022 [facility] dical Specialist DATE CREATED AUTHOR AUTHOR'S ORGANIZ ATION 05/07/2022 [facility] DATE CREATED AUTHOR AUTHOR'S ORGANIZ ATION 04/08/2023 [facility] DATE CREATED AUTHOR AUTHOR'S ORGANIZ ATION 02/10/2025 [facility] dical Specialists EPIC DATE CREATED AUTHOR AUTHOR'S ORGANIZ ATION 08/02/2025 [facility] Care Teams (unrecognized sec tion and content) Mandarin Teacher Relationship Specialty Start Date End Date Radames Mart MD [address] [place] [address] PCP - General Internal Medicine 04/23/22 Mandarin Teacher Relationship Specialty Start Date End Date Radames Mart MD [address] [place] [address] PCP - General Internal Medicine 04/23/22 Mandarin Teacher Relationship Specialty Start Date End Date Radames Mart MD [address] [place] [address] PCP - General Internal Medicine 04/23/22 Mandarin Teacher Relationship Specialty Start Date End Date Radames Mart MD [address] [place] [address] PCP - ACO Reach 04/21/23 Radames Mart MD [address] [place] [address] PCP - General Internal Medicine 06/16/23 Mandarin Teacher Relationship Specialty Start Date End Date Radames Mart MD [address] [place] [address] PCP - ACO Reach 04/21/23 Radames Mart MD [address] [place] [address] PCP - General Internal Medicine 06/16/23 Mandarin Teacher Relationship Specialty Start Date End Date Radmaes Mart MD [address] [facility] [address] [place] [address] PCP - ACO Reach 04/21/23 Radames Mart MD [address] [facility] [address] [place] [address] PCP - General Internal Medicine 06/16/23 Scheduled [...] Sofi Lemus RN)[id number] (NoRateChange - Provider: Luna E Duracky, CORPORATE PLANNER - LOCKSTITCH BINDER)1133 (Rate/Dose Change - Provider: Luna Barfield APRN - RAMILA)1215 (Stopped - Provider: Drea Keyes RN) PRN [...] BE BASED ON THE PRIMARY CLINICAL RECORDS. [facility]. provides no warranty or guarantee of the accuracy or completeness of information in this document.
--- OUTSIDE RECORDS SUMMARY | 2025-09-14 11:18 | XMS_ITS | CCD ---
Author Organization [facility] Care Team Providers Care Architecture Drafter Name Role Phone Radames Mart MD Primary Care Provider [phone] MAYDA CASTRO Admitting Unavailable MAYDA CASTRO Attending [...] LAU Attending Unavailable Radames Mart MD Unavailable [phone] Radames Mart MD Primary Care Provider [phone] IRINA BOWMAN Attending Unavailable RADAMES MART Attending Unavailable RADAMES MART Attending Unavailable Mayda Castro Attending Unavailable RADAMES MART Primary Care Unavailable Mayda Castro Attending Unavailable RADAMES MART Primary Care Unavailable RADAMES MART Primary Care Unavailable Mayda Castro Attending Unavailable Allergies Allergy Classification Reported Allergen(s) Allergy Type Date of Onset Reaction(s) Facility (1 source) Theophylline Drug Allergy dizziness Spotwish Other (1 source) Dust; Translations: [Dust] Propensity to adverse reactions (disorder) [facility] Repository Medications Current Medications Medication Drug [...] morning and at bedtime 0 Active Aclidinium [place] 400 MCG/ACT (1 source) take 1 puff(s) by inhalation once daily Aclidinium [place] 400 MCG/ACT 1 puff Inhalation daily Active [...] 2 puff(s) by inhalation in the morning Ynttjmj-Yqvkdxcowor-Xhp moterol (Breztri Aerosphere) 160-9-4.8 MCG/ACT aerosol Indications: [...] Coronary atherosclerosis; Translations: [Atherosclerotic heart disease of [place] coronary artery without angina pectoris] Onset: 3 [...] [facility] - Other Lab Results [id number] [facility] BONE [facility] BODYon 022 [place] BONE [facility] BODY EXAMINATION: [place] BONE [facility] BODY HISTORY: Primary malignant neoplasm of prostate COMPARISON: No relevant comparison available. TECHNIQUE: After obtaining the patient's consent, 25.5 mCi Technetium 99m MDP was injected intravenously. Images were obtained approximately two hours later. FINDINGS: ABNORMALITIES: No abnormal or suspicious radiotracer accumulation. OTHER: Negative. IMPRESSION: 1. No evidence of skeletal metastasis. Electronically authenticated by: BLAYNE YOUNG Date: 2022-07-26 14:47 Normal [facility] Surgical Pathologyon 022 Surgical Pathology (NOTE) -- [...] THE ADENOCARCINOMA IN THE INVOLVED BIOPSIES. FOR FLARE MAKER THE SLIDES OF SPECIMEN B WERE REVIEWED BY A SECOND PATHOLOGIST (FERNANDO). * THIS TEST WAS DEVELOPED AND ITS PERFORMANCE CHARACTERISTICS DETERMINED BY [facility] ANATOMIC PATHOLOGY. IT HAS [...] SURGICAL PATHOLOGY CONSULTATION Patient Name: BRIAN QUEZADA [facility] Rec: [id number] Path Number: [id number] [facility] ANATOMIC PATHOLOGY [address] [place] [id number] [facility] Comment on above: Performed By: #### P PPVS #### [employer] [address] [place] [address] Millinery Designer: Brady Wilkes MD EKG 12 LeadOrdered By: Ney Ferrara on 04-24-2022 Atrial Rate 91 BPM [employer] Work Phone: P [place] 88 degrees KATHLEEN [employer] Work Phone: P-R Interval 158 ms [employer] Work Phone: Q-T Interval 334 ms [employer] Work Phone: QRS Duration 90 ms [employer] Work Phone: QTc Calculation (Bazett) 410 ms [employer] Work Phone: R [place] 42 degrees [employer] Work Phone: T [place] 81 degrees [employer] Work Phone: Ventricular Rate 91 BPM [employer] Work Phone: [employer] Work Phone: EKG 12 Leadon 04-24-2022 Normal sinus rhythm Low voltage QRS Borderline ECG No previous ECGs available [facility] HARISH Ferrara, Ney Jhaveri MD - 04/24/2022 Normal sinus rhythm Low voltage QRS Borderline ECG No previous ECGs available [employer] Work Phone: BUN & Creatinineon 2 Creatinine [Mass/Vol] 0.93 mg/dL 0.70 - 1.20 mg/dL [employer] GFR >60 >60 mL/min [employer] GFR Non- >60 >60 mL/min [employer] GFR/1.73 sq M.predicted MDRD (S/P/Bld) [Vol rate/Area] [employer] Comment on above: Average GFR for 60-6 9 years old: 85 mL/min/1.73sq m Chronic Kidney Disease: <60 mL/min/1.73sq m Kidney failure: <15 mL/min/1.73sq m eGFR calculated using average adult body mass. Additional eGFR calculator available at: http://www.Loosecubes.Creativity Software/multiple_crcl_2012.htm Urea nitrogen (BldV) [Mass/Vol] 10 mg/dL 8 - 23 mg/dL [facility] BUN + Creatinineon 2 (cont.) Normal [facility] Comment on above: Result Comment: Aver age GFR for 60-69 years old: 85 mL/min/1.73sq m Chronic Kidney Disease: <60 mL/min/1.73sq m Kidney failure: <15 mL/min/1.73sq m eGFR calculated using average adult body mass. Additional eGFR calculator available at: http://www.Loosecubes.Creativity Software/multiple_crcl_2011.htm Performed By: #### C BC, BUNCRT, LYTE #### [facility] [address] [place] [address] Millinery Designer: Jean-Pierre Gallardo MD Creatinine [Mass/Vol] 0.93 mg/dL Normal 0.70-1.20 [facility] Comment on above: Performed By: #### C BC, BUNCRT, LYTE #### [facility] [address] [place] [address] Millinery Designer: Jean-Pierre Gallardo MD GFR, Amer >60 Normal >60 [facility] Comment on above: Performed By: #### C BC, BUNCRT, LYTE #### [facility] [address] [place] [address] Millinery Designer: Jean-Pierre Gallardo MD GFR,non Amer >60 Normal >60 [facility] Comment on above: Performed By: #### C BC, BUNCRT, LYTE #### [facility] [address] [place] [address] Millinery Designer: Jean-Pierre Gallardo MD Urea nitrogen [Mass/Vol] 10 mg/dL Normal 8-23 [facility] Comment on above: Performed By: #### C BC, BUNCRT, LYTE #### [facility] [address] [place] [address] Millinery Designer: Jean-Pierre Gallardo MD CBCon 04-23-2022 Erythrocyte distribution width (RBC) [Ratio] 11.9 % Normal 11.8-14.4 [facility] Comment on above: Performed By: #### C NICK BUNCRT, LYTE #### [facility] [address] [place] [address] Millinery Designer: Jean-Pierre Gallardo MD Hematocrit (Bld) [Volume fraction] 45.0 % Normal 40.7-50.3 [facility] Comment on above: Performed By: #### Allan ROMERO BUNCRT, LYTE #### [facility] [address] [place] [address] Millinery Designer: Jean-Pierre Gallardo MD Hemoglobin (Bld) [Mass/Vol] 14.1 g/dL Normal 13.0-17.0 [facility] Comment on above: Performed By: #### Allan ROMERO BUNCRT, LYTE #### [facility] [address] [place] [address] Millinery Designer: Jean-Pierre Gallardo MD MCH (RBC) [Entitic mass] 30.5 pg Normal 25.2-33.5 [facility] Comment on above: Performed By: #### Allan ROMERO BUNCRT, LYTE #### [facility] [address] [place] [address] Millinery Designer: Jean-Pierre Gallardo MD MCHC (RBC) [Mass/Vol] 31.3 g/dL Normal 28.4-34.8 [facility] Comment on above: Performed By: #### Allan ROMERO BUNCRT, LYTE #### [facility] [address] [place] [address] Millinery Designer: Jean-Pierre Gallardo MD MCV (RBC) [Entitic vol] 97.4 fL Normal 82.6-102.9 [facility] Comment on above: Performed By: #### TONY HART LYTE #### [facility] [address] [place] [address] Millinery Designer: Jean-Pierre Gallardo MD NRBC Automated 0.0 per 100 WBC Normal 0.0 [facility] Comment on above: Performed By: #### Allan ROMERO BUNHEATHER, LYTE #### [facility] [place] [address] Millinery Designer: Jean-Pierre Gallardo MD Platelet mean volume (Bld) [Entitic vol] 9.9 fL Normal 8.1-13.5 [facility] Comment on above: Performed By: #### TONY HART LYTE #### [facility] [address] [place] [address]. [place] [address] Millinery Designer: Jean-Pierre Gallardo MD Platelets (Bld) [#/Vol] 162 10*3/uL Normal 138-453 [facility] Comment on above: Performed By: #### TONY HART LYTE #### [facility] [address] [place] [address]. [place] [address] Millinery Designer: Jean-Pierre Gallardo MD RBC (Bld) [#/Vol] 4.62 10*6/uL Normal 4.21-5.77 [facility] Comment on above: Performed By: #### TONY HART, LYTE #### [facility] [address] [place] [address]. [place] [address] Millinery Designer: Jean-Pierre Gallardo MD WBC (Bld) [#/Vol] 9.2 10*3/uL Normal 3.5-11.3 [facility] Comment on above: Performed By: #### C TONY ROMERO LYRENA #### [facility] [address] [place], [place] [id number] Millinery Designer: Jean-Pierre Gallardo MD Hematocrit (Bld) [Volume fraction] 45.0 % 40.7 - 50.3 % [facility] Hemoglobin.gastrointes tinal spec 1 Ql (Stl) 14.1 g/dL 13.0 - 17.0 g/dL [facility] MCH (RBC) [Entitic mass] 30.5 pg 25.2 - 33.5 pg [facility] MCHC (RBC) [Mass/Vol] 31.3 g/dL 28.4 - 34.8 g/dL [facility] MCV (RBC) [Entitic vol] 97.4 fL 82.6 - 102.9 fL [facility] NRBC Automated 0.0 0.0 per 100 WBC [facility] Platelet distribution width (Bld) [Ratio] 11.9 % 11.8 - 14.4 % [facility] Platelet mean volume (Bld) [Entitic vol] 9.9 fL 8.1 - 13.5 fL [facility] Platelets (Bld) [#/Vol] 162 10*3/uL [facility] RBC (Bld) [#/Vol] 4.62 10*6/uL 4.21 - 5.7 7 m/uL [facility] WBC (Bld) [#/Vol] 9.2 10*3/uL [facility] Electrolyte Panelon 04-23-20 22 Anion gap [Moles/Vol] 6 mmol/L Low 9 - 17 mmol/L [facility] Chloride [Moles/Vol] 101 mmol/L 98 - 10 7 mmol/L [facility] CO2 [Moles/Vol] 35 mmol/L High 20 - 31 mmol/L [facility] Interpretation and review of laboratory results Abnormal [facility] Potassium [Moles/Vol] 4.6 mmol/L 3.7 - 5.3 mmol/L [facility] Sodium [Moles/Vol] 142 mmol/L 135 - 144 mmol/L [facility] Electrolyteson 04-23-2022 Anion gap [Moles/Vol] 6 mmol/L Low 9-17 [facility] Comment on above: Performed By: #### TONY HART, LYTE #### [facility] [address] [place] [address] Millinery Designer: Jean-Pierre Gallardo MD Chloride [Moles/Vol] 101 mmol/L Normal 98-107 [facility] Comment on above: Performed By: #### C NICK BUNCRT, LYTE #### [facility] [address] [place] [address] Millinery Designer: Jean-Pierre Gallardo MD CO2 [Moles/Vol] 35 mmol/L High 20-31 [facility] Comment on above: Performed By: #### TONY HART, LYTE #### [facility] [address] [place] [address] Millinery Designer: Jean-Pierre Gallardo MD Potassium [Moles/Vol] 4.6 mmol/L Normal 3.7-5.3 [facility] Comment on above: Performed By: #### Allan ROMERO BUNCRT, LYTE #### [facility] [address] [place] [address] Millinery Designer: Jean-Pierre Gallardo MD Sodium [Moles/Vol] 142 mmol/L Normal 135-144 [facility] Comment on above: Performed By: #### TONY HART, LYTE #### [facility] [address] [place] [address] Millinery Designer: Jean-Pierre Gallardo MD No Panel Informationon 04-23 [facility] Chronic pulmonary change without acute cardiopulmonary process. [facility] RIS CONSOLIDATED EXAMINATION: TWO XRAY VIEWS OF THE CHEST 04/23/2022 9:14 am COMPARISON: None. HISTORY: ORDERING SYSTEM PROVIDED HISTORY: pre-op TECHNOLOGIST PROVIDED HISTORY: Pt in [facility] pre-op Reason for Exam: Pre op prostate surg, May 03, 2022. COPD FINDINGS: There is chronic pulmonary change. There is no acute consolidation or effusion. There is no pneumothorax. The mediastinal structures are unremarkable. The upper abdomen unremarkable. The extrathoracic soft tissues are unremarkable. [facility] Frank Farrar MD - 04/23/2022 EXAMINATION: TWO XRAY VIEWS OF THE CHEST 04/23/2022 9:14 am COMPARISON: None. HISTORY: ORDERING SYSTEM PROVIDED HISTORY: pre-op TECHNOLOGIST PROVIDED HISTORY: Pt in [facility] pre-op Reason for Exam: Pre op prostate surg, May 03, 2022. COPD FINDINGS: There is chronic pulmonary change. There is no acute consolidation or effusion. There is no pneumothorax. The mediastinal structures are unremarkable. The upper abdomen unremarkable. The extrathoracic soft tissues are unremarkable. IMPRESSION: Chronic pulmonary change without acute cardiopulmonary process. [employer] Phone: Radiology Study observation (narrative) [employer] Phone: No Panel InformationOrdered By: Frank Roque on 04-23-2022 [employer] Phone: XR CHEST (2 VW)on 04-23-2022 XR CHEST (2 VW) EXAMINATION: TWO XRAY VIEWS OF THE CHEST 04/23/2022 9:14 am COMPARISON: None. HISTORY: ORDERING SYSTEM PROVIDED HISTORY: pre-op TECHNOLOGIST PROVIDED HISTORY: Pt in [facility] pre-op Reason for Exam: Pre [...] Frank Roque MD 04/23/22 Final result Normal [facility] Q - PSA (FREE AND TOTAL)on 0 02-02-2022 PSA, % FREE 13 % (calc) Low >25 [facility] Director Of Personnel Comment on above: Order Comment: [facility] Testing performed at: [facility], [facility], [address] [facility], [address], [place], [address], Stone Gluer: Fermín Aj MD [facility] Collection Date/Time: [facility] [...] 30 93 9 (3)Catalona et al.:PAVAN 277: 4217-1014 (1996) (4)Catalona et al.:PAVAN 279: 4940-9173 (1997) (x)These estimates vary with age, ethnicity, [...] mind. PSA was performed using the Jett [place] Immunoassay method. Values obtained from different assay methods cannot be used interchangeably. PSA levels, regardless of value, should not be interpreted as absolute evidence of the presence or absence of disease. Performed By: #### 3 [id number] #### [facility] [address] [place] [address] PSA, FREE 0.9 ng/mL Normal [facility] Director Of Personnel Comment on above: Order Comment: [facility] performed at: [place] [employer], [address] [facility], [address] [place] [address], [phone], Stone Gluer: Fermín Aj MD [facility] Collection Date/Time: [facility] Results Received Date/Time: [facility] Reported Date/Time: Performed By: #### 3 [id number] #### [facility] [address] [place] [address] PSA, TOTAL 7.0 ng/mL High < OR = 4.0 [facility] Director Of Personnel Comment on above: Order Comment: [facility] performed at: [place] [employer], [address] [facility], [address] [place] [address], [phone], Stone Gluer: Fermín Aj MD [facility] Collection Date/Time: [facility] Results Received Date/Time: [facility] Reported Date/Time: Performed By: #### 3 [id number] #### [facility] [address] [place] [address] Complete Blood Count with Au to Diffon 01-25-2022 Basophils (Bld) [#/Vol] 0.07 10*3/uL Normal 0.00-0.20 [facility] Director Of Personnel Comment on above: Performed By: #### C BCAD, CMP, LIPD #### [facility] [address] [place] [id number] Basophils/100 WBC (Bld) 1.0 % Normal [facility] Director Of Personnel Comment on above: Performed By: #### C BCAD, CMP, LIPD #### [facility] [address] [place], [place] [id number] Eosinophils (Bld) [#/Vol] 0.23 10*3/uL Normal 0.02-0.50 [facility] Director Of Personnel Comment on above: Performed By: #### C BCAD, CMP, LIPD #### [facility] [address] [place] [id number] Eosinophils/100 WBC (Bld) 3.2 % Normal [facility] Director Of Personnel Comment on above: Performed By: #### C BCAD, CMP, LIPD #### [facility] [address] [place], [place] [id number] Erythrocyte distribution width (RBC) [Ratio] 11.9 % Normal 11.0-15.0 [facility] Specialist Comment on above: Performed By: #### C BCAD, CMP, LIPD #### [facility] [address] [place], [place] [id number] Hematocrit (Bld) [Volume fraction] 43.2 % Normal 38.5-50.0 [facility] Specialist Comment on above: Performed By: #### C BCAD, CMP, LIPD #### [facility] [address] [place], [place] [id number] Hemoglobin (Bld) [Mass/Vol] 14.3 g/dL Normal 13.0-17.1 [facility] Specialist Comment on above: Performed By: #### C BCAD, CMP, LIPD #### [facility] [address] [place], [place] [id number] Lymphocytes (Bld) [#/Vol] 2.0 10*3/uL Normal 0.9-3.9 [facility] Specialist Comment on above: Performed By: #### C BCAD, CMP, LIPD #### [facility] [address] [place], [place] [id number] Lymphocytes/100 WBC (Bld) 28.0 % Normal [facility] Specialist Comment on above: Performed By: #### C BCAD, CMP, LIPD #### [facility] [address] [place], [place] [id number] MCH (RBC) [Entitic mass] 31.0 pg Normal 27.0-33.0 [facility] Specialist Comment on above: Performed By: #### C BCAD, CMP, LIPD #### [facility] [address] [place], [place] [id number] MCHC (RBC) [Mass/Vol] 33.1 g/dL Normal 32.0-36.0 [facility] Comment on above: Performed By: #### C BCAD, CMP, LIPD #### [facility] [address] [place], [place] [id number] MCV (RBC) [Entitic vol] 94 fL Normal 80-100 [facility] Specialist Comment on above: Performed By: #### C BCAD, CMP, LIPD #### [facility] [address] [place], [place] [id number] Monocytes (Bld) [#/Vol] 0.7 10*3/uL Normal 0.2-0.9 [facility] Specialist Comment on above: Performed By: #### C BCAD, CMP, LIPD #### [facility] [address] [place], [place] [id number] Monocytes/100 WBC (Bld) 9.3 % Normal [facility] Specialist Comment on above: Performed By: #### C BCAD, CMP, LIPD #### [facility] [address] [place], [place] [id number] Neutrophils (Bld) [#/Vol] 4.2 10*3/uL Normal 1.5-7.8 [facility] Specialist Comment on above: Performed By: #### C BCAD, CMP, LIPD #### [facility] [address] [place], [place] [id number] Neutrophils/100 WBC (Bld) 58.4 % Normal [facility] Specialist Comment on above: Performed By: #### C BCAD, CMP, LIPD #### [facility] [address] [place], [place] [id number] Platelet mean volume (Bld) [Entitic vol] 10.20 fL Normal 7.50-12.50 [facility] Comment on above: Performed By: #### C BCAD, CMP, LIPD #### [facility] [address] [place], [place] [id number] Platelets (Bld) [#/Vol] 151 10*3/uL Normal 140-400 [facility] Specialist Comment on above: Performed By: #### C BCAD, CMP, LIPD #### [facility] [address] [place], [place] [id number] RBC (Bld) [#/Vol] 4.61 10*6/uL Normal 4.20-5.[address] [facility] Specialist Comment on above: Performed By: #### C BCAD, CMP, LIPD #### [facility] [address] [place], [place] [id number] RDW-SD 41.6 fL Normal 37.0-50.0 [facility] Director Of Personnel Comment on above: Performed By: #### C BCAD, CMP, LIPD #### [facility] [address] [place], [place] [id number] WBC (Bld) [#/Vol] 7.2 10*3/uL Normal 3.8-11.0 [facility] [place] Director Of Personnel Comment on above: Performed By: #### C BCAD, CMP, LIPD #### [facility] [address] [place], [place] [id number] Comprehensive Metabolic Pane champ 01-25-2022 Albumin [Mass/Vol] 4.5 g/dL Normal 3.6-5.1 [facility] [place] Director Of Personnel Comment on above: Performed By: #### C BCAD, CMP, LIPD #### [facility] [address] [place], [place] [id number] Albumin/Globulin [Mass ratio] 2.0 {ratio} Normal 1.0-2.5 [facility] Director Of Personnel Comment on above: Performed By: #### C BCAD, CMP, LIPD #### [facility] [address] [place], [place] [id number] ALP [Catalytic activity/Vol] 78 U/L Normal 40-129 [facility] Director Of Personnel Comment on above: Performed By: #### C BCAD, CMP, LIPD #### [facility] [address] [place], [place] [id number] ALT [Catalytic activity/Vol] 17 U/L Normal 9-46 [facility] Director Of Personnel Comment on above: Result Comment: 10/28 Female reference range changed. Performed By: #### C BCAD, CMP, LIPD #### [facility] [address] [place], [place] [id number] Anion gap [Moles/Vol] 15 mmol/L Normal 12-20 [facility] Specialist Comment on above: Result Comment: Effe ctive 12/03/2019 reference range changed. Performed By: #### C BCAD, CMP, LIPD #### [facility] [address] [place], [place] [id number] AST [Catalytic activity/Vol] 20 U/L Normal 10-40 [facility] Comment on above: Performed By: #### C BCAD, CMP, LIPD #### [facility] [address] [place], [place] [id number] Bilirubin [Mass/Vol] 0.53 mg/dL Normal 0.30-1.20 [facility] Comment on above: Performed By: #### C BCAD, CMP, LIPD #### [facility] [address] [place], [place] [id number] BUN/CREA 11 Ratio Normal 6-22 [facility] Comment on above: Performed By: #### C BCAD, CMP, LIPD #### [facility] [address] [place], [place] [id number] Calcium [Mass/Vol] 10.0 mg/dL Normal 8.6-10.2 [facility] Comment on above: Performed By: #### C BCAD, CMP, LIPD #### [facility] [address] [place], [place] [id number] Chloride [Moles/Vol] 103 mmol/L Normal 98-107 [facility] Comment on above: Performed By: #### C BCAD, CMP, LIPD #### [facility] [address] [place], [place] [id number] CO2 [Moles/Vol] 30 mmol/L Normal 20-31 [facility] Comment on above: Performed By: #### C BCAD, CMP, LIPD #### [facility] [address] [place], [place] [id number] Creatinine [Mass/Vol] 1.1 mg/dL Normal 0.7-1.4 [facility] Comment on above: Performed By: #### C BCAD, CMP, LIPD #### [facility] [address] [place], [place] [id number] eGFRAA 81 mL/min/1.73m2 Normal >60 [facility] Specialist Comment on above: Performed By: #### C BCAD, CMP, LIPD #### [facility] [address] [place], [place] [id number] eGFRNAA 67 mL/min/1.73m2 Normal >60 [place] Director Of Personnel Comment on above: Performed By: #### C BCAD, CMP, LIPD #### [facility] [address] [place], [place] [id number] Globulin (S) [Mass/Vol] 2.3 g/dL Normal 1.9-3.7 [facility] Director Of Personnel Comment on above: Performed By: #### C BCAD, CMP, LIPD #### [facility] [address] [place], [place] [id number] Glucose [Mass/Vol] 96 mg/dL Normal 65-99 [facility] Director Of Personnel Comment on above: Result Comment: For FASTING Glucose --- ADA reference ranges: Normal 65-99 mg/dl Prediabetes 100-125 Diabetes >/= 126 Performed By: #### C BCAD, CMP, LIPD #### [facility] [address] [place], [place] [id number] Potassium [Moles/Vol] 4.3 mmol/L Normal 3.5-5.5 [facility] Specialist Comment on above: Performed By: #### C BCAD, CMP, LIPD #### [facility] [address] [place], [place] [id number] Protein [Mass/Vol] 6.8 g/dL Normal 6.1-8.1 [facility] Director Of Personnel Comment on above: Performed By: #### C BCAD, CMP, LIPD #### [facility] [address] [place], [place] [id number] Sodium [Moles/Vol] 143 mmol/L Normal 135-146 [facility] Director Of Personnel Comment on above: Performed By: #### C BCAD, CMP, LIPD #### [facility] [address] [place], [place] [id number] Urea nitrogen [Mass/Vol] 12 mg/dL Normal 7-25 [facility] Director Of Personnel Comment on above: Performed By: #### C BCAD, CMP, LIPD #### [facility] [address] [place], [place] [id number] Lipid Panelon 01-25-2022 Cholesterol [Mass/Vol] 162 mg/dL Normal 125-200 No [facility] Director Of Personnel Comment on above: Result Comment: Low risk < 200mg/dL Borderline risk 201-239 mg/dl High risk > or equal to 240 Performed By: #### C BCAD, CMP, LIPD #### [facility] [address] [place], [place] [id number] Cholesterol in HDL [Mass/Vol] 59 mg/dL Normal >40 [facility] Director Of Personnel Comment on above: Result Comment: High Cardiovascular Risk HDL <40 mg/dL Low Cardiovascular Risk HDL > or equal to 60 mg/dl Performed By: #### C BCAD, CMP, LIPD #### [facility] [address] [place], [place] [id number] Cholesterol in LDL [Mass/Vol] 79 mg/dL Normal [facility] [facility] Comment on above: Result Comment: LDL ATP III CLASSIFICATION LDL less than 100 mg/dl Optimal LDL 100-129 mg/dl Near or above optimal LDL 130-159 Borderline high LDL 160-189 High LDL greater than 189 mg/dl Very High Performed By: #### C BCAD, CMP, LIPD #### [facility] [address], [place] [id number] Cholesterol in VLDL [Mass/Vol] 24 mg/dL Normal [facility] Specialist Comment on above: Performed By: #### C BCAD, CMP, LIPD #### [facility] [address], [place] [id number] Cholesterol.total/Chol esterol in HDL [Mass ratio] 3 {ratio} Normal [facility] Specialist Comment on above: Performed By: #### C BCAD, CMP, LIPD #### [facility] [address], [place] [id number] Triglyceride [Mass/Vol] 121 mg/dL Normal 30-150 [facility] Director Of Personnel Comment on above: Result Comment: TRIG ATPIII CLASSIFICATIONS TRIG less than 150 mg/dl Normal TRIG 150-199 mg/dl Borderline High TRIG 200-500 mg/dl High TRIG greather than 500 mg/dl Very High Performed By: #### C BCAD, CMP, LIPD #### [facility] [address], [place] [id number] PSA SCREEN (MEDICARE)on 12-30 TPSA 5.940 ng/mL High <4.000 [facility] Director Of Personnel Comment on above: Result Comment: PSA Test Method: ECLIA/Gilberto e 601 Performed By: #### P #### [facility] [address] [place], [place] [id number] Vital Signs Date Time Vital Sign Value Performing Clinician Facility 08-24-2022 10:30-0400 Body height 177.8 cm Orlando Reedgloria Other [facility] Other 08-24-2022 10:30-0400 Body mass index (BMI) [Ratio] 22.67 kg/m2 Orlando Reedgloria Other [facility] Other 08-24-2022 10:30-0400 Body weight 71.67 kg Orlando Reedgloria Other [facility] Other 08-24-2022 10:30-0400 Diastolic blood pressure 86 mm[Hg] Orlando Dittgloria Other [facility] Other 08-24-2022 10:30-0400 Systolic blood pressure 118 mm[Hg] Orlando Reedgloria Other [facility] Other 05-03-2022 12:15-0400 Body temperature 98.2 [degF] Mayda Castro MD Work Phone: [facility] 05-03-2022 12:15-0400 Diastolic blood pressure 89 mm[Hg] Mayda Castro MD Work Phone: [facility] 05-03-2022 12:15-0400 Heart rate 77 /min Mayda Castro MD Work Phone: [facility] 05-03-2022 12:15-0400 Respiratory rate 15 /min Mayda Castro MD Work Phone: [facility] 05-03-2022 12:15-0400 SaO2% (BldA) [Mass fraction] 98 % Mayda Castro MD Work Phone: [facility] 05-03-2022 12:15-0400 Systolic blood pressure 115 mm[Hg] Mayda Castro MD Work Phone: [facility] 05-03-2022 10:06-0400 Body height 177.8 cm Mayda Castro MD Work Phone: [facility] 05-03-2022 10:06-0400 Body mass index (BMI) [Ratio] 22.96 kg/m2 Mayda Castro MD Work Phone: [facility] 05-03-2022 10:06-0400 Body weight 72.58 kg Mayda Castro MD [facility] 04-23-2022 08:05-0400 SaO2% (BldA) [Mass fraction] 95 % Sta 1 [facility] 04-23-2022 08:02-0400 Body height 177.8 cm Sta 1 [facility] 04-23-2022 08:02-0400 Body mass index (BMI) [Ratio] 22.96 kg/m2 Sta 1 [facility] 04-23-2022 08:02-0400 Body temperature 97.7 [degF] Sta 1 [email or web address] 04-23-2022 08:02-0400 Body weight 72.58 kg Sta 1 [facility] 04-23-2022 08:02-0400 Diastolic blood pressure 68 mm[Hg] Sta 1 [facility] 04-23-2022 08:02-0400 Heart rate 100 /min Sta 1 [facility] 04-23-2022 08:02-0400 Respiratory rate 24 /min Sta 1 [facility] 04-23-2022 08:02-0400 Systolic blood pressure 132 mm[Hg] Sta 1 [facility] Encounters Encounter Date Encounter Type Care Provider [...] 08-24-2022 End: 08-24-2022 ambulatory Orlando Valencia Other [facility] Other Start: 08-24-2022 [facility] visit new patient Orlando Valencia [facility] Gastro[facility]ology Start: 08-04-2022 End: 08-05-[address] DOCTOR GARZON Facility:[facility] Start: 07-26-2022 End: 07-27-[address] RADAMES MART Facility:[facility] Start: 05-03-2022 End: 05-03-2022 ambulatory MAYDA CASTRO [facility] Start: 05-03-2022 End: 05-03-2022 Subsequent hospital visit by physician Mayda Castro MD Work Phone: [facility] Comment on above: PSA elevation Start: 04-23-2022 End: 04-26-2022 ambulatory MAYDA CASTRO [facility] Start: 04-23-2022 End: 04-28-2022 ambulatory RADAMES MART [facility] Start: 04-23-2022 End: 04-25-2022 Subsequent hospital visit by physician Rina X-Ray [facility] Radiology Comment on above: Arrived Start: 04-23-2022 End: 04-27-2022 Subsequent hospital visit by physician Rina Pat 1 [facility] PRE-ADMIT TESTING Procedures Date Procedure Procedure Detail Performing Clinician Start: 09-06-2025 BLOOD CULTURE 2 Generic External Data Provider Start: 09-06-2025 BLOOD CULTURE 1 Generic External Data Provider Start: 04-04-[address] DOCTOR GARZON Comment on above: Performed By: #### P SAD #### [facility] [address] [place] [address] Dr. Mireya Tabor Start: 02-05-[address] DOCTOR GARZON Comment on above: Performed By: #### P SAD #### [facility] [address] [address] [address] Mireya Tabor Start: 08-04-[address] DOCTOR GARZON Comment on above: Performed By: #### P SAD #### [facility] [address] [place] [address] Dr. Mireya Tabor Start: 04-23-2022 Radiologic exam [...] 09-01-2025 Influenza vaccination Influenza Vacc ine (#1) [facility] Start: 02-07-2025 End: 02-07-2025 Patient encounter procedure 02/07/2025 1:00 PM EDT Office Visit [facility] [address] [place] [address] Irina Bowman PA [address] [place] [address] Arrived [facility] Comment on above: Arrived Start: 07-29-2024 Influenza vaccination Influenza Vacc ine (#1) [facility] Start: 01-25-2023 Lipid panel Lipids [facility] Start: 07-29-2022 Influenza vaccination Flu vacc ine (Season Ended) [facility] Start: 05-03-2022 End: 05-03-2022 Admission to same day surgery center 05/03/2022 Surgery IP Unit Mayda Castro MD [address] [place] [address] FUSION PROSTATE BIOPSY WITH ULTRASOUND MRI WAS AT [facility] ON 03/12 [facility] Comment on above: FUSION PROSTATE BIOP SY WITH ULTRASOUND MRI WAS AT [facility] ON 03/12 Start: 05-03-2022 End: 05-03-2022 Anesthesia consultation 05/03/2022 Anesthesia Event IP Unit Fish Rider MD [address] [place] [address] [facility] Start: 05-03-2022 Subsequent hospital visit by physician 05/03/2022 Hospital Encounter IP Unit Mayda Castro MD [address] [place] [address] [facility] Start: 05-03-2022 End: 05-03-2022 Biopsy prostate incisional any approach [facility] Start: 05-31-2020 Pneumococcal 65+ yea rs Vaccine (2 - PCV) Pneumococcal 65+ years Vaccine (2 - PCV) [facility] Start: 2017 Abdominal aortic aneurysm screening AAA screen [facility] Start: 2002 Shingles vaccine (1 of 2) Shingles vaccine (1 of 2) [facility] Start: 1997 Screening for malign ant neoplasm of colon [facility] Start: 1992 Prostate specific antigen measurement Prostate Specific Antigen (PSA) Screening or Monitoring [facility] Start: 1971 DTaP/Tdap/Td vaccine (1 - Tdap) DTaP/Tdap/Td vaccine (1 - Tdap) [facility] Start: 1970 Hepatitis C screening Hepatitis C sc reen [facility] Start: 1964 Depression Screen Depression Screen [facility] Start: 1952 Annual Wellness Visi t (AWV) Annual Wellness Visit (AWV) [facility] Start: 1952 Screening for malign ant neoplasm of colon [facility] BLOOD CULTURE 1 BLOOD CULTURE 1 Lab Routine 09/06/2025 10:14 PM EDT [facility] BLOOD CULTURE 2 BLOOD CULTURE 2 Lab Routine 09/06/2025 11:10 PM EDT [facility] Continuous pulse oximetry Pulse oximetry, continuous Respiratory Care Routine Every 4hr until discontinued starting 05/04/2022 [facility] Work Phone: Comment on above: Every 4hr until disc ontinued starting 05/04/2022 Surgical Pathology Surgical Path ology Lab Routine PSA elevation Release Upon Ordering for 1 Occurrences starting 05/03/2022 [facility] Work Phone: Comment on above: Release Upon Orderin g for 1 Occurrences starting 05/03/2022 End: 05-03-2022 SURGICAL PATHOLOGY REPORT SURGICAL PATHOLOGY REPORT Lab Routine Once for 1 Occurrences starting 05/03/2022 until 05/03/2022 [facility] Work Phone: Comment on above: Once for 1 Occurrenc es starting 05/03/2022 until 05/03/2022 Immunizations Immunization Date Immunization Notes Care Provider Johnny wu 02-03-2024 Influenza, High-dose Seasonal, Quadrivalent, Preservative Free Irina Hemmer PA Work Phone: [facility] 02-03-2024 Pneumococcal Conjuga te PCV 20 Irina Hemmer PA Work Phone: [facility] 02-03-2024 influenza virus vacc ine, unspecified formulation Irina Hemmer PA Work Phone: [facility] 10-19-2022 Influenza, Seasonal, Quadrivalent, Adjuvanted Irina Hemmer PA Work Phone: [facility] 02-12-2022 Influenza, Seasonal, Quadrivalent, Adjuvanted Irina Hemmer PA Work Phone: [facility] 02-02-2022 COVID-19, Pfizer Pur ple top, DILUTE for use, 12+ yrs, 30mcg/0.3mL dose Sta Rm [facility] Work Phone: 01-29-2021 COVID-19, Pfizer Pur ple top, DILUTE for use, 12+ yrs, 30mcg/0.3mL dose Sta Rm [facility] Work Phone: 01-08-2021 COVID-19, Pfizer Pur ple top, DILUTE for use, 12+ yrs, 30mcg/0.3mL dose Sta Rm [facility] Work Phone: 09-20-2020 influenza, high dose seasonal, preservative-free Irina Hemmer PA Work Phone: [facility] 09-20-2020 Influenza, High-dose Seasonal, Quadrivalent, Preservative Free Irina Hemmer PA Work Phone: [facility] 06-25-2020 zoster vaccine recombinant Irina Hemmer PA Work Phone: [facility] 01-28-2020 pneumococcal polysaccharide vaccine, 23 valent Irina Hemmer PA Work Phone: [facility] 01-28-2020 zoster vaccine recombinant Irina Hemmer PA Work Phone: [facility] 10-31-2019 influenza, high dose seasonal, preservative-free Irina Hemmer PA Work Phone: [facility] 10-31-2019 Influenza, High-dose Seasonal, Quadrivalent, Preservative Free Irina Hemmer PA Work Phone: [facility] 05-31-2019 pneumococcal polysaccharide vaccine, 23 valent Irina Hemmer PA Work Phone: [facility] 09-29-2017 influenza, high dose seasonal, preservative-free Irina Hemmer PA Work Phone: [facility] 09-14-2016 influenza, injectabl e, quadrivalent, contains preservative Irina Hemmer PA Work Phone: [facility] 09-14-2016 influenza, injectabl e, quadrivalent, preservative free Irina Hemmer PA Work Phone: [facility] 09-06-2015 influenza virus vacc ine, unspecified formulation Irina Hemmer PA Work Phone: [facility] 08-28-2014 influenza virus vacc ine, unspecified formulation Irina Hemmer PA Work Phone: [facility] 11-08-2013 influenza virus vacc ine, unspecified formulation Irina Hemmer PA Work Phone: [facility] 10-28-2012 pneumococcal polysaccharide vaccine, 23 valent Irina Hemmer PA Work Phone: [facility] 02-27-1992 tetanus toxoid, redu franchesca diphtheria toxoid, and acellular pertussis vaccine, adsorbed Irina Hemmer PA Work Phone: [facility] Payers Date Payer Category Payer Private Health Insurance AARDonna Md mber [id number] 2017 Medicare MEDICARE [id number] 1959 Medicare [id number] 1959 Private Health Insurance [id number] 1952 Unknown [id number] .177 1952 Unknown [id number] .177 1952 Unknown [id number] .177 1952 Unknown [id number] .593 1952 Unknown [id number] [id number] .593 1952 Unknown [id number] [id number] .593 1952 Unknown [id number] [id number] .593 1952 Unknown [id number] [id number] .1259 1952 Unknown [id number] [id number] .1259 1952 Unknown [id number] [id number] .1259 1952 Unknown [id number] .718 1950 Unknown [id number] .718 1950 Unknown [id number] .718 Social History Date Type Detail Facility Start: 04-23-2022 End: 06-15-2023 Tobacco smoking status [facility] Ex-smoker [facility] Phone: End: 11-28-2006 History of tobacco use Current smoker [facility] Phone: Start: 04-23-2022 End: 06-15-2023 Tobacco use and exposure Smokeless tobacco non-user [facility] Phone: Start: 04-23-2022 End: 02-07-2025 Alcohol intake Current drinker of alcohol (finding) [facility] Phone: Start: 04-23-2022 End: 02-07-2025 Alcohol intake [facility] Phone: Start: 1950 Sex Assigned At Not on file B ON [facility] Phone: Start: 04-23-2022 End: 05-03-2022 Exposure to SARS-CoV-2 (event) Not sure [facility] Phone: Start: 05-23-2024 End: 02-07-2025 Sex Assigned At [facility] [employer] Other History of tobacco use Cigarette Smoker [...] - From: Drea Chopra (Urology Clinical Pool ([facility] Sent: 07/31/2025 14:24:29 EDT Subject: General Message Caller Name: BRIAN QUEZADA; Caller Number: Jey , M Pt called stated had not received medication Orgovyx sent to [facility]. Spoke with Pharmacist Arlette, who stated she was waiting for insurance coverage ID # and pt should be receiving medication soon by delivery. Pt called and notified. [facility] 07-17-2025 Note - From: Drea Chopra Sent: 07/17/2025 08:14:01 EDT Subject: General Message Caller Name: BRIAN QUEZADA; Caller Number: Jey , M Refill request Orgovyx (Relugolix) 120mg tablet, 1 tablet orally once a day, #30, 11 refills. [facility] Needs to be seen in office in 3-4 months. Pt next appointment must kept for more refills per Dr. Castro. [facility] 05-29-2025 Telephone encounter Note Form atting of this note might be different from the original. Lv 3rd attempt to contact no contact letter sent [facility] 05-29-2025 Miscellaneous Notes Formattin g of this note might be different from the original. Lv 3rd attempt to contact no contact letter sent Patient stated they will call back and schedule within the next couple of days Paitent is overdue for mawv - lvm trying to schedule appt documented in this encounter [facility] 05-20-2025 Telephone encounter Note Form atting of this note might be different from the original. Patient stated they will call back and schedule within the next couple of days [facility] 05-13-2025 Telephone encounter Note Form atting of this note might be different from the original. Paitent is overdue for mawv - lvm trying to schedule appt [facility] 08-24-2022 Evaluation note Encounter Date Diagnosis Assessment Notes Jul, Abdominal distension (ICD-10 - R14.0) Jul, Constipation (ICD-10 - K59.00) OBTAIN COLONOSCOPY FROM [facility] MAY USE LINZESS NEEDED F/U PRN [facility] Other 06-06-2022 Hospital Discharge instructions* Instructions* Mayda Castro MD - 05/03/2022 Patricio, Everything went excellent today. Biopsy results will come back in 1 to 1.5 weeks. We will sit down and discuss this in my office. Please resume your Plavix on Tuesday. Okay to resume all other homemedications today. Regular activity. No restrictions. Regular diet. Dr. Mayda Moralez MD documented [facility] Work Phone: [phone]) 415-418705-27-2022 History of Present illness Narrative* Erin Mclaughlin APRN - FLAVIA - 04/23/2022 8:00 AM EDT PAT Progress Note Pt Name: Brian Quezada Birthdate: 1950 Date of evaluation: 04/23/2022 [x] Called to PAT. I spoke to the patient, Brian Quezada, a 71 y.o. male, who is scheduled for an upcoming FUSION PROSTATE BIOPSY WITH ULTRASOUND MRI WAS AT [facility] ON 03/12 by Mayda Castro MD [...] ms QTc Calculation (Bazett) 410 ms P [place] 88 degrees R [place] 42 degrees T [place] 81 degrees CBC Collection Time: 04/23/22 9:11 [...] 04/23/2022 at 1:55 PM [facility] Phone: evaluation note* Diagnosis PSA elevation Elevated prostate specific antigen (PSA) documented in this encounter [facility] Phone: History general Narrative - Reported* Type [...] History wisdom teeth Hospitalization History see above [facility] Other Reason for visit Narrative* Auth/Cert Specialty Diagnoses / Procedures Referred By Dat t Referred To Contact Diagnoses Elevated PSA DX ELEVATED PSA Procedures UT BIOPSY OF PROSTATE,INCISIONAL FUSION PROSTATE BIOPSY WITH ULTRASOUND MRI WAS AT [facility] ON 03/12 Mayda Castro MD [address] [facility] [address] [place] [address] [facility] [address] [place] [address] Referral ID Status Reason Start Date Expiration Date Visits Re quested Visits Authorized [id number] 1 1 [facility] Phone: Summary Purpose Family History No Family [...] section and content) DATE CREATED AUTHOR 02/05/2022 [facility] dical Specialist DATE CREATED AUTHOR AUTHOR'S ORGANIZ ATION 05/07/2022 [facility] DATE CREATED AUTHOR AUTHOR'S ORGANIZ ATION 04/08/2023 [facility] DATE CREATED AUTHOR AUTHOR'S ORGANIZ ATION 02/10/2025 [facility] dical Specialists EPIC DATE CREATED AUTHOR AUTHOR'S ORGANIZ ATION 08/02/2025 [facility] Care Teams (unrecognized sec tion and content) Architecture Drafter Relationship Specialty Start Date End Date Radames Mart MD [address] [place] [address] PCP - General Internal Medicine 04/23/22 Architecture Drafter Relationship Specialty Start Date End Date Radames Mart MD [address] [place] [address] PCP - General Internal Medicine 04/23/22 Architecture Drafter Relationship Specialty Start Date End Date Radames Mart MD [address] [place] [address] PCP - General Internal Medicine 04/23/22 Architecture Drafter Relationship Specialty Start Date End Date Radames Mart MD [address] [place] [address] PCP - ACO Reach 04/21/23 Radames Mart MD [address] [place] [address] PCP - General Internal Medicine 06/16/23 Architecture Drafter Relationship Specialty Start Date End Date Radames Mart MD [address] [place] [address] PCP - ACO Reach 04/21/23 Radames Mart MD [address] [place] [address] PCP - General Internal Medicine 06/16/23 Architecture Drafter Relationship Specialty Start Date End Date Radames Mart MD [address] [facility] [address] [place] [address] PCP - ACO Reach 04/21/23 Radames Mart MD [address] [facility] [address] [place] [address] PCP - General Internal Medicine 06/16/23 Scheduled [...] RN)[id number] (NoRateChange - Provider: Luna E Duracky, ELECTRODYNAMICIST - CAFE MANAGER)[phone] (Rate/Dose Change - Provider: Luna Barfield APRN [...] BE BASED ON THE PRIMARY CLINICAL RECORDS. [facility] [employer] [facility]. provides no warranty or guarantee of the accuracy or completeness of information in this document.
--- OUTSIDE RECORDS SUMMARY | 2025-09-14 11:19 | XMS_ITS | Encounter Summary ---
Author Organization [facility] Address [address] [facility] [place] [address] Care Team Providers Care Consumer Relations Complaint Clerk Name Role Phone Radames Mart MD Unavailable [phone] Radames Mart MD Primary Care Provider [phone] Encounter Details Date Type Department Care Team (Late st Contact Info) Description 10/12/2023 Abstract [facility] [address] [facility] [address] [place] [id number] Radames Mart MD [address] [facility] [address] [place] [address] Social History Tobacco Use Types Packs/Day Years Used Date Smoking Tobacco: Former Cigarettes Smokeless Tobacco: Never Alcohol Use Standard Drinks/Week Comments Yes 0 (1 standard drink = 0.6 oz pur e alcohol) caffeine 1-2 cups per day Sex and Gender Information Value Date Recorded Sex Assigned at Not on file Legal Sex Male 7:16 PM EDT Gender Identity Not on file Sexual Orientation Not on file documented as of this encounter Plan of Treatment Not on file documented as of this encounter Visit Diagnoses Not on filedocumented in this encounter Care Teams Consumer Relations Complaint Clerk Relationship Specialty Start Date End Date Radames Mart MD [address] [facility] [address] [place] [address] PCP - ACO Reach 04/21/23 Radames Mart MD [address] [facility] [address] [place] [address] PCP - General Internal Medicine 06/16/23 documented as of this encounter
--- OUTSIDE RECORDS SUMMARY | 2025-09-14 11:19 | XMS_ITS | Encounter Summary ---
Author Organization [facility] Address [address] [facility] [place] [address] Care Team Providers Care Land Development Project Manager Name Role Phone Radames Mart MD Unavailable [phone] Radames Mart MD Primary Care Provider [phone] Encounter Details Date Type Department Care Team (Late st Contact Info) Description 10/15/2024 Abstract [facility] [address] [facility] [address] [place] [phone] Radames Mart MD [address] [facility] [address] [place] [address] Social History Tobacco Use Types Packs/Day Years [...] on filedocumented in this encounter Care Teams Land Development Project Manager Relationship Specialty Start Date End Date Radames Mart MD [address] [facility] [address] [place] [address] PCP - ACO Reach 04/21/23 Radames Mart MD [address] [facility] [address] [place] [address] PCP - General Internal Medicine 06/16/23 documented as of this encounter
--- OUTSIDE RECORDS SUMMARY | 2025-09-14 11:19 | XMS_ITS | Encounter Summary ---
Author Organization [facility] Address [address] [facility] [place] [address] Care Team Providers Care Census Clerk Name Role Phone Radames Mart MD Unavailable [phone] Radames Mart MD Primary Care Provider [phone] Encounter Details Date Type Department Care Team (Late st Contact Info) Description 05/15/2024 Abstract [facility] [address] [facility] [address] [place] [phone] Radames Mart MD [address] [facility] [address] [place] [address] Social History Tobacco Use Types Packs/Day Years [...] on filedocumented in this encounter Care Teams Census Clerk Relationship Specialty Start Date End Date Radames Mart MD [address] [facility] [address] [place] [address] PCP - ACO Reach 04/21/23 Radames Mart MD [address] [facility] [address] [place] [address] PCP - General Internal Medicine 06/16/23 documented as of this encounter
--- OUTSIDE RECORDS SUMMARY | 2025-09-14 11:19 | XMS_ITS | Encounter Summary ---
Author Organization [facility] Address [address] [facility] [place] [address] Care Team Providers Care Financial Coordinator Name Role Phone Radames Mart MD Unavailable Radames Mart MD Primary Care Provider [phone] Encounter Details Date Type Department Care Team (Late st Contact Info) Description 06/21/2023 Orders Only [facility] [address] [place] [address] Rose Winters, SUPERINTENDENT MARINE [employer] TERMINAL [address] [facility] [address] [place], [place] [id number] Social History Tobacco Use Types Packs/Day Years [...] on filedocumented in this encounter Care Teams Financial Coordinator Relationship Specialty Start Date End Date Radames Mart MD [address] [place], [place] [id number] PCP - ACO Reach 04/21/23 Radames Mart MD [address] [place], [place] [id number] PCP - General Internal Medicine 06/16/23 documented as of this encounter
--- OUTSIDE RECORDS SUMMARY | 2025-09-14 11:19 | XMS_ITS | Encounter Summary ---
Author Organization [facility] Address [address] [facility] [place] [address] Care Team Providers Care Certified Pharmacy Technician Name Role Phone Radames Mart MD Unavailable [phone] Radames Mart MD Primary Care Provider [phone] Encounter Details Date Type Department Care Team (Late st Contact Info) Description 02/02/2024 Abstract [facility] [address] [facility] 110 [place] [phone] Radames Mart MD [address] [facility] 110 [place] [address] Social History Tobacco Use Types Packs/Day Years [...] on filedocumented in this encounter Care Teams Certified Pharmacy Technician Relationship Specialty Start Date End Date Radames Mart MD [address] [facility] 110 [place] [address] PCP - ACO Reach 04/21/23 Radames Mart MD [address] [facility] 110 [place] [address] PCP - General Internal Medicine 06/16/23 documented as of this encounter
--- OUTSIDE RECORDS SUMMARY | 2025-09-14 11:19 | XMS_ITS | Encounter Summary ---
Author Organization [facility] Address [address] [facility] [place] [address] Care Team Providers Care Reference Data Expert Name Role Phone Radames Mart MD Unavailable [phone] Radames Mart MD Primary Care Provider [phone] Encounter Details Date Type Department Care Team (Late st Contact Info) Description 04/15/2025 Abstract [facility] [address] [facility] 110 [place] [phone] Radames Mart MD [address] [facility] 110 [place] [address] Social History Tobacco Use Types Packs/Day Years Used Date Smoking Tobacco: Former Cigarettes Smokeless Tobacco: Never Alcohol Use Standard Drinks/Week Comments Yes 0 (1 standard drink = 0.6 oz pur e alcohol) caffeine 1-2 cups per day PHQ-2 Answer Date Recorded Patient Health Questionnaire-2 Score 0 02/07/2025 Sex and Gender Information Value Date Recorded Sex Assigned at Not on file Legal Sex Male 7:16 PM EDT Gender Identity Not on file Sexual Orientation Not on file documented as of this encounter Plan of Treatment Not on file documented as of this encounter Visit Diagnoses Not on filedocumented in this encounter Care Teams Reference Data Expert Relationship Specialty Start Date End Date Radames Mart MD [address] [facility] 110 [place] [address] PCP - ACO Reach 04/21/23 Radames Mart MD [address] [facility] 110 [place] [address] PCP - General Internal Medicine 06/16/23 documented as of this encounter
--- OUTSIDE RECORDS SUMMARY | 2025-09-14 11:19 | XMS_ITS | Clinical Summary ---
Author Organization [facility] Address [address] [facility] [place] [address] Care Team Providers Care Activity Director Name Role Phone Radames Mart MD Primary Care Provider [phone] Allergies No known active allergies Medications clopidogrel (PLAVIX) 75 MG tablet Take 75 mg by mouth daily Active ACLIDINIUM BROMIDE IN Inhale 1 puff into the lungs in the morning and at bedtime Active ALBUTEROL IN Inhale 2 puffs into the lungs every 6 hours PRN Active fluticasone-salmete rol (ADVAIR) 250-50 MCG/ACT AEPB diskus inhaler Inhale 1 puff into the lungs every 12 hours Active simvastatin (ZOCOR) 40 MG tablet Take 40 mg by mouth nightly Active mirtazapine (REMERON JESSE-TAB) 30 MG disintegrating tablet Take 30 mg by mouth nightly Active omeprazole (PRILOSEC) 20 MG delayed release capsule Take 20 mg by mouth daily Active DOXAZOSIN MESYLATE PO 2 Active mirtazapine (REMERON) 15 MG tablet 1 tablet Active aclidinium (TUDORZA PRESSAIR) 400 MCG/ACT AEPB inhaler INHALE 1 PUFF BY MOUTH 2 TIMES A DAY Active Immunizations Immunization Administration Dates Next Due COVID-19, Inactive, PFIZER P URPLE top, DILUTE for use, (age 12 y+) 02/02/2022,01/29/2021,01/08/2021 Social History Tobacco Use Types Packs/Day Years Used Date Smoking Tobacco: Former Cigarettes Q uit: 2006 Smokeless Tobacco: Never Alcohol Use Standard Drinks/Week Comments Yes 6 (1 standard drink = 0.6 oz pur e alcohol) Sex and Gender Information Value Date Recorded Sex Assigned at Not on file Legal Sex Male 6:40 PM EST Gender Identity Not on file Sexual Orientation Not on file Last Filed Vital Signs Vital Sign Reading Time Taken Comments Blood Pressure 115/89 05/03/2022 12:15 PM EDT Pulse 77 05/03/2022 12:15 PM EDT Temperature 36.8 C (98.2 F) 05/03/2022 12:15 PM EDT Respiratory Rate 15 05/03/2022 12:15 PM EDT Oxygen Saturation 98% 05/03/2022 12:15 PM EDT Inhaled Oxygen Concentration - - Weight 72.6 kg (160 lb) 05/03/2022 10:06 AM EDT Height 177.8 cm (5' 10 ) 05/03/2022 10:06 AM EDT Body Mass Index 22.96 05/03/2022 10:06 AM EDT Plan of Treatment Health Maintenance Due Date Last Done Comments Lipids 1962 Depression Screen 1964 Hepatitis C screen 1970 DTaP/Tdap/Td vaccine (1 - Tdap) 1971 Colonoscopy 1997 Colorectal Cancer Screen 1997 FIT/FOBT: Average risk 1997 Fecal-DNA (Cologuard): Merrick ge risk 1997 Sigmoidoscopy/CT colonography 1997 Shingles vaccine (1 of 2) 2002 AAA screen 2017 Pneumococcal 50+ years Vacci ne (2 of 2 - PCV) 05/31/2020 05/31/2019 Flu vaccine (#1) 06/28/2025 09/20/2020, 10/31/2019, 09/14/2016 COVID-19 Vaccine (4 - 2024-2 6 season) 2025 02/02/2022, 01/29/2021, 01/08/2021 Respiratory Syncytial Virus (RSV) or age 60 yrs+ (1 - 1-dose 75+ series) 2027 Hepatitis A vaccine Aged Out No longe r eligible based on patient's age to complete this topic Hepatitis B vaccine Aged Out No longe r eligible based on patient's age to complete this topic Hib vaccine Aged Out No longer eligi ble based on patient's age to complete this topic Meningococcal (ACWY) vaccine Aged Out No longer eligible based on patient's age to complete this topic Meningococcal B vaccine Aged Out No l onger eligible based on patient's age to complete this topic Polio vaccine Aged Out No longer elig ible based on patient's age to complete this topic Insurance MEDICARE [employer] MEDICARE SUPP Care Teams Activity Director Relationship Specialty Start Date End Date Radames Mart MD [address] [facility] 110 [place] [address] PCP - General Internal Medicine 04/23/22
--- OUTSIDE RECORDS SUMMARY | 2025-09-14 11:19 | XMS_ITS | Clinical Summary ---
Author Organization [facility] Address [address] [place] [address] Care Team Providers Care Cloth Winder Name Role Phone Radames Mart MD Unavailable [phone] Radames Mart MD Primary Care Provider [phone] Allergies No known active allergies Medications clopidogrel (Plavix) 75 MG tablet 1 (one) time each day at the same time. Active ezetimibe-simvas tatin (Vytorin) 10-40 MG tablet 1 (one) time each day at the same time. Active triamcinolone (Nasacort Allergy 24HR) 55 MCG/ACT nasal inhaler 1 (one) time each day at the same time. Active oxygen (O2) gas Inhale 2 L/min continuously. Active mirtazapine (Remeron) 30 MG tabletIndication s:Insomnia due to medical condition 1 tablet Orally at bedtime 90 tablet 3 3 Active linaCLOtide (Linzess) 145 MCG capsuleIndicatio ns:Chronic idiopathic constipation Take 1 capsule (145 mcg) by mouth in the morning. Take before meals. Do not crush or chew.. 30 capsule 11 4 Active omeprazole OTC (PriLOSEC OTC) 20 MG EC tablet Take 20 mg by mouth in the morning. Take before meals. 4 Active doxazosin (Cardura) 2 MG tablet Take 2 mg by mouth at bedtime 4 Active prazosin (Minipress) 5 MG capsule Take 5 mg by mouth at bedtime Active Budeson-Glycopyr rol-Formoterol (Breztri Aerosphere) 160-9-4.8 MCG/ACT aerosolIndicatio ns:Chronic obstructive pulmonary disease, unspecified COPD type (HCC) Inhale 2 puffs in the morning and 2 puffs before bedtime. 10.7 g 5 5 Active ipratropium-albu terol (Duo-Neb) 0.5-2.5 mg/3 mL nebulizer solutionIndicati ons:Centrilobula r emphysema (HCC) Take 3 mL by nebulization 4 (four) times a day as needed for wheezing or shortness of breath 150 mL 5 5 Active Respiratory Therapy Supplies (Nebulizer/Tubin g/Mouthpiece) kitIndications:C entrilobular emphysema (HCC) 1 kit Daily 1 kit 5 Active Active Problems Problem Noted Date Diagnosed Date Exposure to potentially hazardous substance 01/26 Age-related nuclear cataract, bilateral 03/29/20 Hyperlipidemia 03/29/2024 Major depressive disorder 03/29/2024 Posttraumatic stress disorder 03/29/2024 Anxiety 06/15/2023 Centrilobular emphysema 06/15/2023 Chronic obstructive pulmonary disease 06/15/2023 Constipation 06/15/2023 Coronary atherosclerosis 06/15/2023 Elevated PSA 06/15/2023 GERD (gastroesophageal reflux disease) 3 Lung nodule 06/15/2023 Malignant tumor of prostate 06/15/2023 Nocturnal leg cramps 06/15/2023 Oxygen dependent 06/15/2023 Peripheral vascular disease 06/15/2023 Pure hypercholesterolemia 06/15/2023 History of colonic polyps 02/26/2022 Cramp in lower leg associated with rest 06/27/20 18 Encounters Date Type Department Care Team Description 09/06/2025 Clinisync Result Encounter [facility] External Department Unsolicited Provider, Generic External Data from Last 3 Months Immunizations Immunization Administration Dates Next Due Influenza, High Dose Seasona l, Preservative Free 09/20/2020,10/31/2019,09/29/2017 Influenza, High-dose Seasona l, Quadrivalent, Preservative Free 02/03/2024,09/20/2020,10/31/2019 Influenza, Seasonal, Quadriv alent, Adjuvanted 10/19/2022,02/12/2022 Influenza, Unspecified 09/06/2015,08/28/2014,10/2013 Influenza, injectable, quadrivalent 09/14/2016 Influenza, injectable, quadr ivalent, preservative free 09/14/2016 Pfizer Purple Cap SARS-CoV-2 Vaccination 022,01/29/2021,01/08/2021 Pneumococcal Conjugate PCV 20 02/03/2024 Pneumococcal Polysaccharide PPSV23 01/28/2020,,10/28/2012 Tdap 02/27/1992 Zoster, Recombinant 06/25/2020,01/28/2020 Social History Tobacco Use Types Packs/Day Years Used Date Smoking Tobacco: Former Cigarettes Smokeless Tobacco: Never Tobacco Cessation:Counseling Given: Not Answered Alcohol Use Standard Drinks/Week Comments Yes 0 [...] Sign Reading Time Taken Comments Blood Pressure 120/72 02/07/2025 1:14 PM EDT Pulse 83 06/04/2024 3:44 PM EDT Temperature 37.4 C (99.3 F) 02/07/2025 1:14 PM EDT Respiratory Rate 16 02/07/2025 1:14 PM EDT Oxygen Saturation 86% 02/07/2025 1:14 PM EDT Inhaled Oxygen Concentration - - Weight 85.9 kg (189 lb 6.4 oz) 02/07/2025 1:14 P M EDT Height 177.8 cm (5' 10 ) 02/07/2025 1:14 PM EDT Body Mass Index 27.18 02/07/2025 1:14 PM EDT Plan of Treatment Health Maintenance Due Date Last Done Comments CT Colonography 1952 FIT-DNA 1952 FIT 1952 FOBT 1952 Sigmoidoscopy 1952 Influenza Vaccine (#1) 2025 4, 10/19/2022, 02/12/2022, Additional history exists Colonoscopy 03/04/2032 03/04/2022, 10/13/2015 Colorectal Cancer Screening 03/04/2032 Pneumococcal Vaccine: 65+ Years Completed 02/03/2024, 01/28/2020, 05/31/2019, Additional history exists Procedures Procedure Name Priority Date/Time Associated Diagnosis Comments BLOOD CULTURE 2 Routine 09/06/2025 11:10 PM EDT BLOOD CULTURE 1 Routine 09/06/2025 10:14 PM EDT COLONOSCOPY Routine 03/04/2022 12:00 PM EDT Personal history of colonic polyps Hemorrhage of anus and rectum from Last 3 Months or Most Recently Relevant to Health Maintenance Results * BLOOD CULTURE 2 (09/06/2025 11:10 PM EDT) BLOOD CULTURE 2 Blood Culture 2 NG5D NO GROWTH AT 5 DAYS.^NO GROWTH AT 5 DAYS. [facility] 09/06/2025 11:1 0 PM EDT 09/06/2025 11:13 PM EDT Narrative [facility] - 09/12/2025 3:05 PM EDT Generic External Data Provider LAB BLOOD ORDERAB LES Final Result Performing Organization Address [facility] Co de Phone Number [facility] * BLOOD CULTURE 1 (09/06/2025 10:14 PM EDT) BLOOD CULTURE 1 Blood Culture 1 NG5D NO GROWTH AT 5 DAYS.^NO GROWTH AT 5 DAYS. [facility] 09/06/2025 10:1 4 PM EDT 09/06/2025 10:47 PM EDT Narrative [facility] - 09/12/2025 3:04 PM EDT Generic External Data Provider LAB BLOOD ORDERAB LES Final Result Performing Organization Address [facility] Co de Phone Number [facility] * Colonoscopy (03/04/2022 12:00 PM EDT) Anatomical Region Laterality Modality Endoscopy 03/04/2022 12:0 0 PM EDT Narrative 03/04/2022 12:00 PM EDT PERFORMED AT [facility] LOCATION:[id number] Procedure Note CONVERSION, GENERIC - 06/08/2023 PERFORMED AT [facility] LOCATION:[id number] Ish Kinsey MD ENDOSCOPY PROCEDURE ORDERABL ES Final Result from Last 3 Months or Most Recently Relevant to Health Maintenance Insurance MEDICARE [facility] Care Teams Cloth Winder Relationship Specialty Start Date End Date Radames Mart MD [address] [facility] 110 [place] [address] PCP - ACO Reach 04/21/23 Radames Mart MD [address] [facility] 110 [place] [address] PCP - General Internal Medicine 06/16/23
--- OUTSIDE RECORDS SUMMARY | 2025-09-14 11:19 | XMS_ITS | Encounter Summary ---
Author Organization [facility] Address [address] [facility] [place] [address] Care Team Providers Care Tour Actor Name Role Phone Radames Mart MD Unavailable [phone] Radames Mart MD Primary Care Provider [phone] Encounter Details Date Type Department Care Team (Late st Contact Info) Description 05/03/2024 Abstract [facility] [place] [facility] [address] [facility] 110 [place] [phone] Radames Mart MD [address] [place] [address] [place] [address] Social History Tobacco Use Types Packs/Day Years [...] on filedocumented in this encounter Care Teams Tour Actor Relationship Specialty Start Date End Date Radames Mart MD [address] [place] [address] [place] [address] PCP - ACO Reach 04/21/23 Radames Mart MD [address] [place] [address] [place] [address] PCP - General Internal Medicine 06/16/23 documented as of this encounter
--- OUTSIDE RECORDS SUMMARY | 2025-09-14 11:19 | XMS_ITS | Encounter Summary ---
Author Organization [facility] Address [address] [facility] [place] [address] Care Team Providers Care Barrel Dedenting Machine Operator Name Role Phone Radames Mart MD Unavailable [phone] Radames Mart MD Primary Care Provider [phone] Encounter Details Date Type Department Care Team (Late st Contact Info) Description 03/08/2024 Abstract [facility] [place] [facility] [address] [facility] 110 [place] [phone] Radames Mart MD [address] [facility] 110 [place] [address] Social History Tobacco Use Types Packs/Day Years [...] on filedocumented in this encounter Care Teams Barrel Dedenting Machine Operator Relationship Specialty Start Date End Date Radames Mart MD [address] [facility] 110 [place] [address] PCP - ACO Reach 04/21/23 Radames Mart MD [address] [facility] 110 [place] [address] PCP - General Internal Medicine 06/16/23 documented as of this encounter
--- OUTSIDE RECORDS SUMMARY | 2025-09-14 11:19 | XMS_ITS | Encounter Summary ---
Author Organization [facility] Address [address] [facility] [place] [address] Care Team Providers Care Office Technologist Name Role Phone Radames Mart MD Unavailable [phone] Radames Mart MD Primary Care Provider [phone] Encounter Details Date Type Department Care Team (Late st Contact Info) Description 12/27/2023 Abstract [facility] [address] [facility] 110 [place] [phone] Radames Mrat MD [address] [facility] 110 [place] [address] Social History Tobacco Use Types Packs/Day Years [...] on filedocumented in this encounter Care Teams Office Technologist Relationship Specialty Start Date End Date Radames Mart MD [address] [facility] 110 [place] [address] PCP - ACO Reach 04/21/23 Radames Mart MD [address] [facility] 110 [place] [address] PCP - General Internal Medicine 06/16/23 documented as of this encounter
--- OUTSIDE RECORDS SUMMARY | 2025-09-14 11:19 | XMS_ITS | Encounter Summary ---
Author Organization [facility] Address [address] [place] [address] Care Team Providers Care Local Flatbed Driver Name Role Phone Radames Mart MD Unavailable [phone] Radames Mart MD Primary Care Provider [phone] Encounter Details Date Type Department Care Team (Late st Contact Info) Description 09/06/2025 Clinisync Result Encounter [facility] External Department Unsolicited Provider, Generic External Data Social History Tobacco Use Types Packs/Day Years [...] on file documented as of this encounter Procedures Procedure Name Priority Date/Time Associated Diagnosis Comments BLOOD CULTURE 2 Routine 09/06/2025 11:10 PM EDT BLOOD CULTURE 1 Routine 09/06/2025 10:14 PM EDT documented in this encounter Results * BLOOD CULTURE 2 (09/06/2025 11:10 PM EDT) BLOOD CULTURE 2 Blood Culture 2 NG5D NO GROWTH AT 5 DAYS.^NO GROWTH AT 5 DAYS. [facility] 09/06/2025 11:1 0 PM EDT 09/06/2025 11:13 PM EDT Narrative [facility] - 09/12/2025 3:05 PM EDT us Generic External Data Provider LAB BLOOD ORDERAB LES Final Result Performing Organization Address City/[facility]/ZIP Co de Phone Number [facility] * BLOOD CULTURE 1 (09/06/2025 10:14 PM EDT) BLOOD CULTURE 1 Blood Culture 1 NG5D NO GROWTH AT 5 DAYS.^NO GROWTH AT 5 DAYS. [facility] 09/06/2025 10:1 4 PM EDT 09/06/2025 10:47 PM EDT Narrative [facility] - 09/12/2025 3:04 PM EDT us Generic External Data Provider LAB BLOOD ORDERAB LES Final Result Performing Organization Address [facility] Co de Phone Number [facility] documented in this encounter Visit Diagnoses Not on filedocumented in this encounter Care Teams Local Flatbed Driver Relationship Specialty Start Date End Date Radames Mart MD [address] [facility] 110 [place] [address] PCP - ACO Reach 04/21/23 Radames Mart MD [address] [place] [address] PCP - General Internal Medicine 06/16/23 documented as of this encounter
--- OUTSIDE RECORDS SUMMARY | 2025-09-14 11:19 | XMS_ITS | Encounter Summary ---
Author Organization [facility] Address [address] [facility] [place] [address] Care Team Providers Care Project Development Manager Name Role Phone Radames Mart MD Unavailable [phone] Radames Mart MD Primary Care Provider [phone] Encounter Details Date Type Department Care Team (Late st Contact Info) Description 05/02/2025 Abstract [facility] [place] [facility] [address] [facility] 110 [place] [phone] Radames Mart MD [address] [facility] 110 [place] [address] Social History Tobacco Use Types Packs/Day Years [...] on filedocumented in this encounter Care Teams Project Development Manager Relationship Specialty Start Date End Date Radames Mart MD [address] [facility] 110 [place] [address] PCP - ACO Reach 04/21/23 Radames Mart MD [address] [facility] 110 [place] [address] PCP - General Internal Medicine 06/16/23 documented as of this encounter
--- OUTSIDE RECORDS SUMMARY | 2025-09-14 11:20 | XMS_ITS | Encounter Summary ---
Author Organization [facility] Address [address] [facility] [place] [address] Care Team Providers Care Greeting Card Editor Name Role Phone Radames Mart MD Unavailable [phone] Radames Mart MD Primary Care Provider [phone] Encounter Details Date Type Department Care Team (Late st Contact Info) Description 06/27/2024 Abstract [facility] [place] [facility] [address] [facility] 110 [place] [phone] Radames Mart MD [address] [facility] 110 [place] [address] Social History Tobacco Use Types Packs/Day Years [...] on filedocumented in this encounter Care Teams Greeting Card Editor Relationship Specialty Start Date End Date Radames Mart MD [address] [facility] 110 [place] [address] PCP - ACO Reach 04/21/23 Radames Mart MD [address] [facility] 110 [place] [address] PCP - General Internal Medicine 06/16/23 documented as of this encounter
--- OUTSIDE RECORDS SUMMARY | 2025-09-14 11:20 | XMS_ITS | Patient Health Record ---
Author Organization [facility] [place] Address [address] [place] [address] Care Team Providers Care Distillery Miller Name Role Phone Radames Mart MD Primary Care Provider Josue Rincon [phone] Allergies Allergen (clinical drug ingredient) Drug/Non Drug Allergy documented on EMR Reaction Allergy Type Onset Date Status dust (uncoded) Unknown Allergy Activ e Results Component Value Reference Range Notes PSA, TOTAL (Not yet reviewed by provider) Interpretation: Performing Lab: Notes/Report: Reason For Referral No Information Medications Medication SIG (Take, Route, Frequency, Duration) Notes Start Date End Date Status Simvastatin Active Casodex 50 MG 1 tablet Orally Once a day; Duration: 90 days 08/12/2022 Not-Taking Omeprazole Active Orgovyx 120 MG 1 tablet Orally Once a day; Duration: 30 day(s) 07/12/2023 Active Mirtazapine Active Doxazosin Mesylate A ctive Fluticasone-Salmete rol 250-50 MCG/DOSE 1 puff Inhalation Twice a day prn Active Albuterol Sulfate HFA Active Orgovyx 120 MG 1 tablet Orally Once a day; Duration: 30 days 06/19/2024 Active Clopidogrel Bisulfate Active Orgovyx 120 MG 1 tablet - sample Orally Once a day; Duration: 30 day(s) * Lot # [id number], Expiration Date: 04/27/2025 03/10/2023 Not-Taking Orgovyx 120 MG 1 tablet Orally Once a day; Duration: 30 day(s) 04/07/2023 Not-Taking Social History Tobacco Use: Social History Observation Description Date Details (start date - stop date) Former Smoker NA - 11/28/2008 Tobacco Use/Smoking Question Answer Notes Patient is a former smoker When did you stop smoking? 11/28/2008 Alcohol Screen (Audit-C) Question Answer Notes Did you have a drink containing alcohol in the p ast year? Yes How often did you have a dri nk containing alcohol in the past year? Weekly (3 points) Points 3 Interpretation Negative AUDIT-C (Standard) Question Answer Notes Did you have a drink contain ing alcohol in the past year? Yes How often did you have six o r more drinks on one occasion in the past year? Never (0 point) How many drinks did you have on a typical day when you were drinking in the past year? 1 or 2 drinks (0 point) How often did you have a dri nk containing alcohol in the past year? 2 to 3 times a week (3 points) Points 3 Interpretation Negative Problems Problem Type SNOMED Code ICD Code Onset Dates Problem Status W/U Status Risk Notes Problem Malignant tumor of prostate (010577259) Prostate cancer (C61) Active confirmed Problem Benign prostatic hypertrophy with outflow obstruction (049166036) BPH loc w urin obs/LUTS (N40.1) Active confirmed Encounters Encounter Location Date Provider Diagnosis [facility] [address] [place] [address] 06/10/2025 Josue Castro Elevated PSA R97.20 Assessments Encounter Date Diagnosis (ICD Code) Assessment Notes Treatment Notes Treatment Clinical Notes Section Notes 06/10/2025 Elevated PSA (ICD-10 - R97.20) Plan Of Treatment Future Test Test Name Order Date PSA, TOTAL 08/13/2022 PSA, TOTAL 10/20/2024 Insurance Providers Payer Name Payer Address Payer Phone Subscriber Number Group Number Insured Name Patient Relationship to Insured Coverage Start Date Coverage End Date [place] [address] [place] [address] [id number] Tunde Quezada Self - patient is the insured 7 [facility] [address] [place] [address] [phone] [id number] Tunde Quezada Self - patient is the insured 7 Medical (General) History Medical History History ICD Code Covid-16 December 2020 COPD- on oxygen Depression high cholesterol History of DVT BPH loc w urin obs/LUTS N40.1 Elevated PSA R97.20 Prostate cancer C61 Surgical History Surgery Date(Month/Year) heart stents hernia surgery Fusion prostate biopsy
--- OUTSIDE RECORDS SUMMARY | 2025-09-14 11:20 | XMS_ITS | Encounter Summary ---
Author Organization [facility] Address [address] [place] [address] Care Team Providers Care Strategic Sourcing Specialist Name Role Phone Adebayo Mart MD Unavailable [phone] Adebayo Mart MD Primary Care Provider [phone] Encounter Details Date Type Department Care Team (Late st Contact Info) Description 06/02/2024 Clinisync Result Encounter [facility] External Department Unsolicited Adebayo Mart MD [address] [facility] [address] [place] [address] Social History Tobacco Use Types Packs/Day Years [...] Procedure Name Priority Date/Time Associated Diagnosis Comments XR CHEST 2V 06/02/2024 4:37 AM EDT documented in this encounter Results * XR CHEST 2V (06/02/2024 4:37 AM EDT) Anatomical Region Laterality Modality Other 06/02/2024 4:37 AM EDT Narrative 06/02/2024 4:39 AM EDT [facility] [address] [place] [address] XRay Report Signed Patient: TUNDE BARNARD MR#: [id number] : 1950 Acct:[id number] Age/Sex: 73 / M ADM Date: 05/30/24 Loc: LAB Attending Dr: ADEBAYO MART Ordering Physician: ADEBAYO MART Date of Service: 05/30/24 Procedure(s): XR chest 2V Accession Number(s): [id number] cc: ADEBAYO MART [place] [address] Patient Name: TUNDE BARNARD MRN: [id number] date: 1950 Sex: M Assigned Patient Location: LAB Current Patient Location: LAB Accession/Order Number: [id number] Exam Date: 05/30/2024 14:20 Report Date: 06/02/2024 04:37 At the request of: ADEBAYO MART Procedure: XR chest 2V EXAMINATION: XR chest 2V HISTORY: COPD exacerbation J44.1 , shortness breath COMPARISON: XR chest 05/31/2019 FINDINGS: LUNGS: Hyperexpanded lungs with coarsening of interstitial markings compatible with COPD. VASCULATURE: No increased pulmonary vasculature. PLEURA: No pneumothorax, effusion, or pleural thickening. CARDIAC: No cardiomegaly or cardiac silhouette abnormality. MEDIASTINUM: No visible mass or adenopathy. BONES: No fracture or visible bone lesion. OTHER: Negative. XR/XR chest 2V IMPRESSION: 1. No acute cardiopulmonary process. 2. Grossly stable chronic changes compatible with COPD. Electronically authenticated by: GILMER CHOU Date: 06/02/2024 04:37 Dictated By: Gilmer Chou M.D. Signed By: 06/02/249 DD/ 6 TD/TT: Pump Tender: Procedure Note Radiology, Radiologist, MD - 06/02/2024 [place] [address] XRay Report Signed Patient: TUNDE BARNARD RMR#: [id number] : 1950cct:[id number] Age/Sex: 73 / MADM Date: 05/30/24 Loc: LAB Attending Dr: ADEBAYO MART Ordering Physician: ADEBAYO MART Date of Service: 05/30/24 Procedure(s): XR chest 2V Accession Number(s): [id number] cc: ADEBAYO MART [address] [address] Patient Name: TUNDE BARNARD MRN: [id number] date: 1950 Sex: M Assigned Patient Location: LAB Current Patient Location: LAB Accession/Order Number: [id number] Exam Date: 05/30/2024 14:20 Report Date: 06/02/2024 04:37 At the request of: ADEBAYO MART Procedure: XR chest 2V EXAMINATION: XR chest 2V HISTORY: COPD exacerbation J44.1 , shortness breath COMPARISON: XR chest 05/31/2019 FINDINGS: LUNGS: Hyperexpanded lungs with coarsening of interstitial markingscompatible with COPD. VASCULATURE: No increased pulmonary vasculature. PLEURA: No pneumothorax, effusion, or pleural thickening. CARDIAC: No cardiomegaly or cardiac silhouette abnormality. MEDIASTINUM: No visible mass or adenopathy. BONES: No fracture or visible bone lesion. OTHER: Negative. XR/XR chest 2V IMPRESSION: 1. No acute cardiopulmonary process. 2. Grossly stable chronic changes compatible with COPD. Electronically authenticated by: GILMER CHOU Date: 06/02/2024 04:37 Dictated By: Gilmer Chou M.D. Signed By:06/02/249 DD/ 6 TD/TT: Pump Tender: Adebayo Mart MD [facility] Final Result documented in this encounter Visit Diagnoses Not on filedocumented in this encounter Care Teams Strategic Sourcing Specialist Relationship Specialty Start Date End Date Adebayo Mart MD [address] [facility] [address] [place] [address] PCP - ACO Reach 04/21/23 Adebayo Mart MD [address] [facility] [address] [place] [address] PCP - General Internal Medicine 06/16/23 documented as of this encounter
--- OUTSIDE RECORDS SUMMARY | 2025-09-14 11:20 | XMS_ITS | Encounter Summary ---
Author Organization [facility] Address [address] [place] [address] Care Team Providers Care Yield Engineer Name Role Phone Adebayo Mart MD Unavailable Adebayo Mart MD Primary Care Provider [phone] Encounter Details Date Type Department Care Team (Late st Contact Info) Description 06/01/2024 Clinisync Result Encounter [facility] External Department Unsolicited Adebayo Mart MD [address] [facility] [address] [place] [address] Social History Tobacco Use Types Packs/Day Years [...] Procedure Name Priority Date/Time Associated Diagnosis Comments CT ABDOMEN PELVIS W CON 06/01/2024 10:20 AM EDT documented in this encounter Results * CT ABDOMEN PELVIS W CON (06/01/2024 10:20 AM EDT) Anatomical Region Laterality Modality Other 06/01/2024 10:2 0 AM EDT Narrative 06/01/2024 10:23 AM EDT [facility] [address] [place] [address] CT Scan Report Signed Patient: TUNDE BARNARD MR#: [id number] : 1950 Acct:[id number] Age/Sex: 73 / M ADM Date: 05/30/24 Loc: LAB Attending Dr: ADEBAYO MART Ordering Physician: ADEBAYO MART Date of Service: 05/30/24 Procedure(s): CT abdomen pelvis w con Accession Number(s): [id number] cc: ADEBAYO MART [place] [address] [place] [address] Patient Name: TUNDE BARNARD MRN: [id number] date: 1950 Sex: M Assigned Patient Location: LAB Current Patient Location: Accession/Order Number: [id number] Exam Date: 05/30/2024 14:25 Report Date: 06/01/2024 10:20 At the request of: ADEBAYO MART Procedure: CT abdomen pelvis w con EXAMINATION: CT abdomen pelvis w con HISTORY: Distended abdomen COMPARISON: CT abdomen pelvis 03/16/2022 TECHNIQUE: Axial, Coronal, and Sagittal images were obtained without and/or with IV contrast as indicated by examination type. Dose reduction techniques were achieved by using automated exposure control and/or adjustment of mA and/or kV according to patient size and/or use of iterative reconstruction technique. FINDINGS: LUNG BASES: No visible pulmonary or pleural disease. LIVER: No enlargement, atrophy, suspicious density, or significant focal lesion. BILIARY: No dilatation or calcification. PANCREAS: No lesion, fluid collection, or abnormal duct dilatation. SPLEEN: No enlargement or focal lesion. ADRENALS: No mass or enlargement. KIDNEYS: No mass, obstruction, or calcification. BOWEL/MESENTERY: No visible mass, obstruction, or bowel wall thickening. AORTA/VASCULAR: No aneurysm or dissection. RETROPERITONEUM: No mass or adenopathy. LYMPH NODES: No adenopathy. URINARY BLADDER: No visible focal wall thickening, lesion, or calculus. PELVIC ORGANS: No visible mass. Pelvic organs appropriate for patient age. ABDOMINAL WALL: No mass or hernia. BONES: L5-S1 moderate disc space narrowing. No bony lesion or fracture. OTHER: Negative. CT/CT abdomen pelvis w con IMPRESSION: 1. No abnormal or suspicious findings to account for patient's symptoms. 2. L5-S1 moderate degenerative disc disease. Electronically authenticated by: GILMER CHOU Date: 06/01/2024 10:20 Dictated By: Gilmer Chou M.D. Signed By: 06/01/24 1023 DD/ 1020 TD/TT: Rn Birthing: Procedure Note Radiology, Radiologist, - 06/01/2024 [place] [address] CT Scan Report Signed Patient: TUNDE BARNARD RMR#: [id number] : 1950cct:[id number] Age/Sex: 73 / MADM Date: 05/30/24 Loc: LAB Attending Dr: ADEBAYO MART Ordering Physician: ADEBAYO MART Date of Service: 05/30/24 Procedure(s): CT abdomen pelvis w con Accession Number(s): [id number] cc: ADEBAYO MART [place] [id number] Patient Name: TUNDE BARNARD MRN: [id number] date: 1950 Sex: M Assigned Patient Location: LAB Current Patient Location: Accession/Order Number: [id number] Exam Date: 05/30/2024 14:25 Report Date: 06/01/2024 10:20 At the request of: ADEBAYO MART Procedure: CT abdomen pelvis w con EXAMINATION: CT abdomen pelvis w con HISTORY: Distended abdomen COMPARISON: CT abdomen pelvis 03/16/2022 TECHNIQUE: Axial, Coronal, and Sagittal images were obtained withoutand/or with IV contrast as indicated by examination type. Dose reductiontechniques were achieved by using automated exposure control and/or adjustment of mA and/or kV according to patient size and/or use of iterative reconstruction technique. FINDINGS: LUNG BASES: No visible pulmonary or pleural disease. LIVER: No enlargement, atrophy, suspicious density, or significant focal lesion. BILIARY: No dilatation or calcification. PANCREAS: No lesion, fluid collection, or abnormal duct dilatation. SPLEEN: No enlargement or focal lesion. ADRENALS: No mass or enlargement. KIDNEYS: No mass, obstruction, or calcification. BOWEL/MESENTERY: No visible mass, obstruction, or bowel wall thickening. AORTA/VASCULAR: No aneurysm or dissection. RETROPERITONEUM: No mass or adenopathy. LYMPH NODES: No adenopathy. URINARY BLADDER: No visible focal wall thickening, lesion, or calculus. PELVIC ORGANS: No visible mass. Pelvic organs appropriate for patient age. ABDOMINAL WALL: No mass or hernia. BONES: L5-S1 moderate disc space narrowing. No bony lesion or fracture. OTHER: Negative. CT/CT abdomen pelvis w con IMPRESSION: 1. No abnormal or suspicious findings to account for patient's symptoms. 2. L5-S1 moderate degenerative disc disease. Electronically authenticated by: GILMER COHU Date: 06/01/2024 10:20 Dictated By: Gilmer Chou M.D. Signed By:06/01/24 1023 DD/ 1020 TD/TT: Rn Birthing: us Adebayo Mart MD [facility] Final Result documented in this encounter Visit Diagnoses Not on filedocumented in this encounter Care Teams Yield Engineer Relationship Specialty Start Date End Date Adebayo Mart MD [address] [facility] [address] [place] [address] PCP - ACO Reach 04/21/23 Adebayo Mart MD [address] [facility] [address] [place] [address] PCP - General Internal Medicine 06/16/23 documented as of this encounter
--- OUTSIDE RECORDS SUMMARY | 2025-09-14 11:20 | XMS_ITS | Clinical Summary ---
Author Organization [employer] [facility] Address [id number] [address] [place] [address] Care Team Providers Care Scientific Affairs Manager Name Role Phone Unavailable Primary Care Provider Unavailabl e Social History Tobacco Use Types Packs/Day Years Used Date Smoking Tobacco: Never Assessed Childcare Answer Date Recorded Childcare Unknown 05/09/2019 Employment Answer Date Recorded Employment Unknown 05/09/2019 Purpose - Life Answer Date Recorded Purpose and direction in life Unknown Sex and Gender Information Value Date Recorded Sex Assigned at Not on file Legal Sex Male 12:03 PM EDT Gender Identity Not on file Sexual Orientation Not on file Last Filed Vital Signs Vital Sign Reading Time Taken Comments Blood Pressure - - Pulse - - Temperature - - Respiratory Rate - - Oxygen Saturation - - Inhaled Oxygen Concentration - - Weight 70.3 kg (155 lb) 03/10/2022 1:00 AM EDT Height - - Body Mass Index - - Plan of Treatment Health Maintenance Due Date Last Done Comments Depression Screening 1964 Tobacco Screening 1964 Adult BMI Screening 1970 DTaP,Tdap and Td Vaccines (1 - Tdap) 1971 Zoster (Shingles) Vaccine (1 of 2) 2002 Fall Risk Screening 2017 Influenza Vaccine 07/29/2025 09/20/2020, , 10/31/2019, Additional history exists Medical Devices Not on file Insurance MEDICARE [facility]
[2025-09-14] MEDS: PEG PREP PO (13:05)
[2025-09-14] MEDS: BISACODYL 5 MG TABLET 10 MG PO (22:21)
[2025-09-14] MEDS: MIRTAZAPINE 15 MG TABLET 30 MG PO (22:22)
[2025-09-14] MEDS: POLYETHYLENE GLYCOL 3350 17 GM POWDER PACKET PO (22:23)
[2025-09-15] VITALS (28 sets, daily range): BP systolic 102–132; BP diastolic 58–73; PULSE 55–79; RESP 20; TEMP 36.3–36.9; O2SAT 77–97
[2025-09-15] MEDS: METHYLPREDNISOLONE SOD SUCC PF 40 MG/ML VIAL IVP ×3 (02:40→21:38)
[2025-09-15] MEDS: IPRATROPIUM BROMIDE 0.5 MG/2.5 ML VIAL.NEB IH ×4 (04:50→23:12)
[2025-09-15] MEDS: SODIUM CHLORIDE 3% INHALATION 15 ML NEB 6 ML IH ×2 (04:50→17:02)
[2025-09-15] MEDS: PANTOPRAZOLE SODIUM 40 MG TABLET.DR PO (06:28)
[2025-09-15] MEDS: DILTIAZEM HCL 60 MG TABLET 30 MG PO ×4 (06:28→21:38)
[2025-09-15 06:40] LABS: Anion Gap 4.7; Blood Urea Nitrogen 31.0 mg/dL (7.0-18.0); Calcium 8.8 mg/dL (8.5-10.1); Carbon Dioxide 39.8 mmol/L (21.0-32.0); Chloride 105 mmol/L (98-107); Estimated GFR (African America >60 (>=60 mL/min/1.73m^2); Estimated GFR (Non-African Ame >60 (>=60 mL/min/1.73m^2); Glucose 151 mg/dL (74-106); Potassium 4.5 mmol/L (3.5-5.1); Sodium 145 mmol/L (136-145)
[2025-09-15] MEDS: ATORVASTATIN CALCIUM 20 MG TABLET PO (09:44)
[2025-09-15] MEDS: THIAMINE MONONITRATE (VIT B1) 100 MG TABLET 200 MG PO (09:45)
[2025-09-15] MEDS: DOXYCYCLINE MONOHYDRATE 100 MG CAPSULE PO ×2 (09:45→21:37)
[2025-09-15] MEDS: ACETAZOLAMIDE 250 MG TABLET PO (09:45)
[2025-09-15] MEDS: CLOPIDOGREL BISULFATE 75 MG TABLET PO (09:46)
[2025-09-15] MEDS: ENOXAPARIN SODIUM 80 MG/0.8 ML SYRINGE SUBQ ×2 (09:46→21:37)
[2025-09-15] MEDS: ENSURE HP 237 ML LIQUID PO ×2 (09:46→21:38)
[2025-09-15] MEDS: FOLIC ACID 1 MG TABLET PO (09:46)
[2025-09-15] MEDS: BUDESONIDE 0.5 MG/2 ML AMPULE NEB IH ×2 (10:43→23:12)
--- NOTE | 2025-09-15 12:01 | P.PN_ITS ---
Progress Note: Subjective Subjective Interval history: Pt was seen and evaluated at bedside, remains in sinus rhythm, hemodynamically stable. respiratory pat stable, on 4 L NC saturating well. No more hallucinations. minimal cough and sputum production. Doing well so far. Slept well last night. has not had BM so far. Continue aggressive Bowel regimen. Exam Narrative Exam Narrative: Const General: cooperative, comfortable HEENT Normal oropharyngeal mucosa without any ulcers or exudates Eyes: Conjunctiva normal Pulmonary Auscultation: Diminished breath sounds bilaterally, no crackles, no wheezes Cardiovascular Rate: normal rate Rhythm: regular rhythm Heart Sounds: S1 normal, S2 normal and no murmurs GI Inspection: non-distended Palpation: soft, not firm and nontender. No rigidity or rebound. Deferred Neuro General: alert, awake and oriented x3. No obvious new focal deficit Musculoskeletal: normal range of motion Extrem General: no cyanosis, no pedal edema Psych Appearance: appropriate affect. Grossly normal. Pleasant Constitutional Vital Signs, click to edit/add: Last Vital Signs Temp 97.4 F L 09/15/25 08:04 Pulse 70 09/15/25 11:54 Resp 18 09/15/25 10:51 BP 102/59 09/15/25 08:04 Pulse Ox 91 L 09/15/25 11:54 O2 Del Method Nasal Cannula 09/15/25 10:52 O2 Flow Rate 4 09/15/25 08:26 FiO2 30 09/15/25 04:53 Progress Note: Objective Labs Labs: [facility] 09/15/25 05:41 Sodium 145 Potassium 4.5 Chloride 105 Carbon Dioxide 39.8 H BUN 31.0 H Creatinine 0.84 Glucose 151 H Calcium 8.8 Progress Note: A&P Assessment and Plan (1) PAF (paroxysmal atrial fibrillation): (2) CAD (coronary artery disease): Qualifiers: Coronary Disease-Associated Artery/Lesion type: [place] artery [place] vs. transplanted heart: [place] heart Associated angina: without angina Qualified Code(s): I25.10 - Atherosclerotic heart disease of [place] coronary artery without angina pectoris (3) COPD exacerbation: (4) Hypoxic respiratory failure: Plan Acute COPD exacerbation R Basilar community-acquired pneumonia. ( Rt base on CT ) Acute on chronic respiratory failure with hypoxia and hypercapnia PE was ruled out on CTA Advanced COPD on home oxygen about 2.5-3 L NC CTA showed extensive COPD, no pulmonary embolism. I reviewed CAT scan imaging. Patient has extensive upper lobe emphysema. Rt basilar infiltration. Start patient on albuterol, Atrovent, Solu-Medrol, ceftriaxone and doxycycline. Influenza and COVID are negative. Requested RS, this came back negative. Other viruses such as adenovirus, parainfluenza, human [place] pneumo virus, others could not be tested at [facility]. Thus far, patient is requiring high flow oxygen. wean off as tolerated. Continue to alternate between Vapotherm and BiPAP at night. Patient may qualify for lung reduction surgery given the predominantly upper lobe severe emphysema. He does not follow-up with pulmonary. He may need the PFTs to assess the severity of his emphysema which I suspect is significant. Patient also is at risk having lung cancer. would recommend the patient to have yearly low-dose radiation CAT scan of the chest to screen for lung cancer to be addressed by PCP. Continue Budesonide BID, PEP, vest therapy. Hypertonic saline nebs/IH New onset Afib with RVR- resolved- currently in sinus -Pt went into Afib RVR overnight, started on cardizem bolus followed by drip, however BP was soft, pt was given digoxin doses -Pt converted overnight to NSR, maintained NSR -Continue Cardizem 30 mg QID , avoiding beta blockers given his severe advanced COPD -Echo ordered and reviewed. -Cardiology consult placed. -Pt was started on Full dose Lovenox for AC by overnight hospitalist coverage.Transition to oral on discharge Alcohol use disorder/withdrawal. Patient is vague about the amount of alcohol consumption he drinks. States that he is minimizing his alcohol intake. His stated that the patient has not had alcohol recently. patient on thiamine and folic acid supplements. He is on Valium as needed as directed According to patient's , he barely drinks alcohol these days Stopped CIWA Cachexia, frailty, muscle wasting, failure to thrive, moderate protein calorie mentation. 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 Patient will likely require investigation for his cachexia and weight loss. This may include but not limited to cancer screening such as prostate exam, EGD, colonoscopy and others to be 100 in the outpatient setting. Meanwhile patient on oral protein supplementation. Visual and auditory hallucinations> resolved could be related to his hypoxemia and hypercapnia as well as decompensation of respiratory status. Could be having Wernicke or Korsakoff encephalopathy. stated that the patient has not had alcohol recently however he may still have Korsakoff encephalopathy. patient on thiamine intravenously as listed above. CT head with no acute pathology urine tox screen came back positive for benzo MRI brain done showed mild to moderate chronic microvascular changes. no acute pathology. After investigation and treatment as above, it seems to be related to his hypercapnia and hypoxia, as his hallucinations resolved with the improvement of his respiratory status and co2 levels. CAD. History of cardiac stenting in 2005. Continue Plavix. No clinical evidence of ACS at this time. suspect that the patient has had a progression of CAD since 2005. Functional impairment. Patient is ataxic and unsteady. PT OT eval > recs for SNF Chronic, subacute medical conditions not listed above, abnormal labs and imaging. These would need to be addressed. Could be addressed later on or in the outpatient setting by PCP collaboration with other needed outpatient providers when time and condition are appropriate. Discussed with pt at bedside, all questions answered Continue AVAPS with settings as directed QHS Continue steroids, continue Atrovent QID and Pulmicort nebs, vest therapy Continue Diamox daily Continue to monitor resp status Cardiology consulted. Inpt appreciated. Plan for Eliquis/Xarelto on discharge Continue tele Added Aggressive laxative, monitor for BM. No BM as of today. Added GoLytely and Dulcolax CM following disposition, SNF is the plan, possibly tomorrow
[2025-09-15] MEDS: MIRTAZAPINE 15 MG TABLET 30 MG PO (21:38)
[2025-09-16] VITALS (27 sets, daily range): BP systolic 103–120; BP diastolic 59–79; PULSE 55–112; RESP 20; TEMP 36.4–36.9; O2SAT 89–98
[2025-09-16] MEDS: IPRATROPIUM BROMIDE 0.5 MG/2.5 ML VIAL.NEB IH ×4 (04:46→22:05)
[2025-09-16] MEDS: SODIUM CHLORIDE 3% INHALATION 15 ML NEB 6 ML IH ×2 (04:46→16:08)
[2025-09-16] MEDS: DILTIAZEM HCL 60 MG TABLET 30 MG PO ×4 (05:48→22:26)
[2025-09-16] MEDS: PANTOPRAZOLE SODIUM 40 MG TABLET.DR PO (05:48)
[2025-09-16 05:56] LABS: Anion Gap 3.8; Blood Urea Nitrogen 33.0 mg/dL (7.0-18.0); Calcium 8.8 mg/dL (8.5-10.1); Carbon Dioxide 38.7 mmol/L (21.0-32.0); Chloride 105 mmol/L (98-107); Estimated GFR (African America >60 (>=60 mL/min/1.73m^2); Estimated GFR (Non-African Ame >60 (>=60 mL/min/1.73m^2); Glucose 169 mg/dL (74-106); Potassium 4.5 mmol/L (3.5-5.1); Sodium 143 mmol/L (136-145)
[2025-09-16] MEDS: DOXYCYCLINE MONOHYDRATE 100 MG CAPSULE PO ×2 (08:57→22:24)
[2025-09-16] MEDS: ACETAZOLAMIDE 250 MG TABLET PO (08:57)
[2025-09-16] MEDS: ENSURE HP 237 ML LIQUID PO ×2 (08:57→22:25)
[2025-09-16] MEDS: FOLIC ACID 1 MG TABLET PO (08:57)
[2025-09-16] MEDS: CLOPIDOGREL BISULFATE 75 MG TABLET PO (08:57)
[2025-09-16] MEDS: ATORVASTATIN CALCIUM 20 MG TABLET PO (08:58)
[2025-09-16] MEDS: ENOXAPARIN SODIUM 80 MG/0.8 ML SYRINGE SUBQ ×2 (08:58→22:24)
[2025-09-16] MEDS: THIAMINE MONONITRATE (VIT B1) 100 MG TABLET 200 MG PO (08:58)
[2025-09-16] MEDS: METHYLPREDNISOLONE SOD SUCC PF 40 MG/ML VIAL IVP ×2 (09:02→22:25)
[2025-09-16] MEDS: BUDESONIDE 0.5 MG/2 ML AMPULE NEB IH ×2 (10:20→22:05)
--- NOTE | 2025-09-16 10:30 | CM.NOTE ---
Rounds made with Dr. Russell, no discharge today. Pt will continue AVAP at . Pt c/o difficulty sleeping last night. Pt will discharge to [facility] when medically stable.
--- NOTE | 2025-09-16 12:34 | P.PN_ITS ---
Progress Note: Subjective Subjective Interval history: Patient seen and examined at bedside. I received this patient with my colleague. He is on 40 nasal cannula not able to speak in full sentence however I was told by the nursing team of the people ongoing for the last few days under his long hospitalization that the patient is at not to say better than his baseline. He also had a rough night as he mentions to me as well as very anxious working with the BiPAP. He is on 4 L nasal cannula as a set. No fever no chills no leukocytosis on his labs. CMP stable. Is going to SNF with BiPAP in house Exam Narrative Exam Narrative: General: cooperative, pt in mild respiratory distress, pleasant and cooperative, at baseline mental status HEENT Normal oropharyngeal mucosa without any ulcers or exudates Eyes: Conjunctiva normal Pulmonary Auscultation: Diminished breath sounds bilaterally, he does have some expiratory wheezes, he is saturating well on 4 L nasal cannula with somewhat labored breathing which appears to be his baseline where he does not speak in full sentences and he has slight tachypnea. Cardiovascular Rate: normal rate Rhythm: regular rhythm Heart Sounds: S1 normal, S2 normal and no murmurs GI Inspection: non-distended Palpation: soft, not firm and nontender. No rigidity or rebound. Neuro General: alert, awake and oriented x3. No obvious new focal deficit Musculoskeletal: normal range of motion Extrem General: no cyanosis, no pedal edema Constitutional Vital Signs, click to edit/add: Last Vital Signs Temp 97.8 F 09/16/25 12:00 Pulse 74 09/16/25 12:00 Resp 18 09/16/25 12:00 BP 117/79 09/16/25 12:00 Pulse Ox 93 L 09/16/25 12:00 O2 Del Method Nasal Cannula 09/16/25 12:00 O2 Flow Rate 4 09/16/25 12:00 FiO2 30 09/16/25 04:49 Progress Note: Objective Labs Labs: [facility] 09/16/25 05:17 Sodium 143 Potassium 4.5 Chloride 105 Carbon Dioxide 38.7 H BUN 33.0 H Creatinine 0.76 Glucose 169 H Calcium 8.8 Progress Note: A&P Assessment and Plan (1) PAF (paroxysmal atrial fibrillation): (2) CAD (coronary artery disease): (3) COPD exacerbation: (4) Hypoxic respiratory failure: Plan Acute COPD exacerbation. Basilar community-acquired pneumonia. Acute on chronic hypoxic respiratory failure. Acute on chronic hypercapnic respiratory failure. CTA showed extensive COPD, no pulmonary embolism. I reviewed CAT scan imaging. Patient has extensive upper lobe emphysema. Basilar infiltration. Start patient on albuterol, Atrovent, Solu-Medrol, ceftriaxone and doxycycline. Influenza and COVID are negative. Requested RSV. Other viruses such as adenovirus, parainfluenza, human [place] pneumo virus, others could not be tested at [facility]. Thus far, patient is requiring high flow oxygen. Saturation drops to 88% on 6 L of oxygen. Patient may qualify for lung reduction surgery given the predominantly upper lobe severe emphysema. He does not follow-up with pulmonary. He may need the PFTs to assess the severity of his emphysema which I suspect is significant. Patient also is at risk having lung cancer. I would recommend the patient to have yearly low-dose radiation CAT scan of the chest to screen for lung cancer to be addressed by PCP. Alcohol consumption. Patient is vague about the amount of alcohol consumption he drinks. I suspect that the patient is minimizing his alcohol intake. I started patient on thiamine and folic acid. Thiamine intravenously 200 twice a day to reduce risk of having Warnicke encephalopathy. Cachexia, frailty, muscle wasting, failure to thrive, moderate protein calorie mentation. 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 Patient will likely require investigation for his cachexia and weight loss. This may include but not limited to cancer screening such as prostate exam, EGD, colonoscopy and others to be 100 in the outpatient setting. Meanwhile I would start patient on oral protein supplementation. Subtle hallucination. I suspect that this could be related to his hypoxemia and hypercapnia as well as decompensation of respiratory status I suspect that the patient may be having Warnicke or Korsakoff encephalopathy I started patient on thiamine intravenously as listed above. Requested CAT scan of the brain when patient is safe to go down to the department. Check urine tox screen. Tachycardia which is likely secondary to his respiratory compromise Hypertension I started patient Cardizem 60 mg 3 times daily with improvement of his heart rate. Continue to monitor and adjust accordingly. Discontinued alpha-jorge. CAD. History of cardiac stenting in 2005. Continue Plavix. No clinical evidence of ACS at this time. I suspect that the patient has had a progression of CAD since 2005. 09/16/2025 I am receiving Carleen Damien today from my colleague. He is all [facility]. He did have a large bowel movement yesterday after his bowel regimen was started by my colleague. He continues to be on L ovenox subcutaneous. His mentation is much better back to his baseline however he still has some increased work of breathing which appears to be his chronic COPD that is almost end-stage. That being said I will give another day with IV steroids as well as Symbicort to add to his regimen. If he improves I will discharge him tomorrow with the plan mentioned above. He is on IV ceftriaxone 1 g every 24 hours and p.o. doxycycline 100 mg p.o. twice daily. I will switch him to DOAC possibly Eliquis on discharge. Continues to be on DuoNebs. For his anxiety working with the BiPAP at night I stopped his Ativan and his diazepam. I am not concerned about him being withdrawing as his CIWA score has been consistently almost 0. I started him alprazolam 0.25 mg nightly as needed as well as hydroxyzine 10 mg every 8 hour as needed for anxiety. This will hopefully help him work with the BiPAP at night. I discussed the plan with the patient is more comfortable with this plan than being discharged today. Discussed the plan also with the nursing team at bedside
[2025-09-16] MEDS: HYDROXYZINE HCL 10 MG TABLET PO ×2 (13:47→22:27)
[2025-09-16] MEDS: MIRTAZAPINE 15 MG TABLET 30 MG PO (22:27)
[2025-09-17] VITALS (11 sets, daily range): BP systolic 105–121; BP diastolic 64–67; PULSE 63–79; TEMP 36.4–36.6; O2SAT 91–98
[2025-09-17] MEDS: SODIUM CHLORIDE 3% INHALATION 15 ML NEB 6 ML IH (05:20)
[2025-09-17] MEDS: IPRATROPIUM BROMIDE 0.5 MG/2.5 ML VIAL.NEB IH ×2 (05:20→11:25)
[2025-09-17 06:18] LABS: Hematocrit 38.8 % (42.0-54.0); Hemoglobin 11.8 g/dL (14.0-18.0); Immature Granulocytes Abs Auto 0.56 10^3/uL (0.00-0.03); Immature Granulocytes Pct Auto 5.0 % (0.0-0.5); Lymphocytes Absolute Auto 0.9 10^3/uL (1.2-3.8); Mean Corpuscular HGB Conc 30.4 g/dL (29.9-35.2); Mean Corpuscular Hemoglobin 29.1 pg (25.9-34.0); Mean Corpuscular Volume 95.8 fL (80.0-94.0); Platelet Count 189 10^3/uL (150-450); Red Blood Count 4.05 10^6/uL (4.70-6.10); White Blood Count 11.2 10^3/uL (4.0-11.0)
[2025-09-17 06:32] LABS: Anion Gap 3.8; Blood Urea Nitrogen 35.0 mg/dL (7.0-18.0); Calcium 8.8 mg/dL (8.5-10.1); Carbon Dioxide 38.6 mmol/L (21.0-32.0); Chloride 105 mmol/L (98-107); Estimated GFR (African America >60 (>=60 mL/min/1.73m^2); Estimated GFR (Non-African Ame >60 (>=60 mL/min/1.73m^2); Glucose 168 mg/dL (74-106); Magnesium 2.3 mg/dL (1.8-2.4); Potassium 4.4 mmol/L (3.5-5.1); Sodium 143 mmol/L (136-145)
[2025-09-17] MEDS: HYDROXYZINE HCL 10 MG TABLET PO (06:44)
[2025-09-17] MEDS: DILTIAZEM HCL 60 MG TABLET 30 MG PO ×2 (06:44→12:37)
[2025-09-17] MEDS: PANTOPRAZOLE SODIUM 40 MG TABLET.DR PO (06:45)
[2025-09-17] MEDS: ENSURE HP 237 ML LIQUID PO (09:35)
[2025-09-17] MEDS: ACETAZOLAMIDE 250 MG TABLET PO (09:35)
[2025-09-17] MEDS: ENOXAPARIN SODIUM 80 MG/0.8 ML SYRINGE SUBQ (09:35)
[2025-09-17] MEDS: FOLIC ACID 1 MG TABLET PO (09:36)
[2025-09-17] MEDS: THIAMINE MONONITRATE (VIT B1) 100 MG TABLET 200 MG PO (09:36)
[2025-09-17] MEDS: ATORVASTATIN CALCIUM 20 MG TABLET PO (09:36)
[2025-09-17] MEDS: CLOPIDOGREL BISULFATE 75 MG TABLET PO (09:36)
[2025-09-17] MEDS: METHYLPREDNISOLONE SOD SUCC PF 40 MG/ML VIAL IVP (09:36)
[2025-09-17] MEDS: DOXYCYCLINE MONOHYDRATE 100 MG CAPSULE PO (09:36)
--- NOTE | 2025-09-17 10:44 | PT.DAILY ---
Physical Therapy Daily Note PT Daily Note/Assess Start: 09/10/25 10:12 Freq: Status: Active Protocol: Document 09/17/25 10:05 JACQUELINE (Rec: 09/17/25 10:44 JACQUELINE [id number]) Physical Therapy Daily Note/Assessment Time In/Time Out Time In 10:06 Time Out 10:33 Subjective Subjective Patient reports feeling stronger. Not sleep well, the machine they put me on at night makes me feel like I am drowning, and I just can't rest. Patient does not complaint of pain. Therapeutic Exercise Time Therapeutic Exercise 10 Minutes (minutes) Therapeutic Exercise 1 Units Therapeutic Exercise Treatment Therapeutic Exercise Seated exercise with AROM in all planes. SPO2 at 92 Treatment percent, does drop to 89 percent post exercise but increases with rest and instructed breathing techniques . Therapeutic Activity Time Therapeutic Activity 13 Minutes (minutes) Therapeutic Activity 1 Units Therapeutic Activity Treatment Chair Transfer Standby Assistance Ability Therapeutic Activity sit to stand 3x with SBA. Gait 20' with RW CGA. Static Comments standing 3 min with UE support. SPO2 decreases to 82 percent with limited functional activity. Once seated and instructed with breathing techniques SPO2 rises to 91 percent over a course of 2-3 minutes. Total Physical Therapy Time Total Therapy 23 Minutes Total Physical 2 Therapy Units Summary Daily Note Summary Patient demonstrates improved RX tolerance today, but still requires frequent therapeutic rest breaks due to drop in SPO2 with O2 on. Patient also becomes visibly SOB with fatigue after 20' of ambulation. Patient denies increase in pain post RX, just complaints of moderate fatigue. Patient in chair with alarm placed, call light in reach and all needs met.
--- NOTE | 2025-09-17 10:55 | CM.NOTE ---
Rounds made with Dr. Russell, discussed with pt about discharge to [place] today. 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
--- NOTE | 2025-09-17 11:00 | CM.NOTE ---
CRF completed and SW will reach out to [place] for discharge and update on new medication Eliquis.
--- NOTE | 2025-09-17 11:06 | PM.DS1 ---
DS: Providers Provider Date of admission: 09/07/25 12:00 Primary care physician: ADEBAYO CARVALHO Consults: 09/07/25 Consult to [employer] Developer Routine Reason for consult:: Other Other reason:: Patient does not feel safe at home. 09/08/25 09:25 Occupational Therapy Eval and Treat Routine Reason for consultation: Weakness Physical Therapy Eval and Treat Routine Reason for consultation: Weakness 09/11/25 20:01 Consult to Cardiology Routine Reason for consultation: A fib RVR Anticipated date of discharge: 09/17/25 DS: Diagnosis Discharge Diagnosis (1) PAF (paroxysmal atrial fibrillation): (2) CAD (coronary artery disease): Qualifiers: Coronary Disease-Associated Artery/Lesion type: [place] artery [place] vs. transplanted heart: [place] heart Associated angina: without angina Qualified Code(s): I25.10 - Atherosclerotic heart disease of [place] coronary artery without angina pectoris (3) COPD exacerbation: (4) Hypoxic respiratory failure: DS: Summary Hospital Course Hospital Course: Mr. Donovan is a 75-year-old gentleman with a known diagnosis of COPD on oxygen. Came in with progressive cough, wheezing and congestion. Cough productive to whitish milky sputum. No fever or chills. No chest pain or palpitation. No abdominal pain. Patient has oxygen at home. He quit smoking 10 years ago after smoking for 40 years. He reported drinking alcohol when asked however he is very. He said sometimes he drinks 4-5 beer daily and sometimes only 1 or 2. Acute COPD exacerbation R Basilar community-acquired pneumonia. ( Rt base on CT ) Acute on chronic respiratory failure with hypoxia and hypercapnia PE was ruled out on CTA Advanced COPD on home oxygen about 2.5-3 L NC CTA showed extensive COPD, no pulmonary embolism. I reviewed CAT scan imaging. Patient has extensive upper lobe emphysema. Rt basilar infiltration. Start patient on albuterol, Atrovent, Solu-Medrol, ceftriaxone and doxycycline. Influenza and COVID are negative. Requested RS, this came back negative. Other viruses such as adenovirus, parainfluenza, human [place] pneumo virus, others could not be tested at [place]. Thus far, patient is requiring high flow oxygen. wean off as tolerated. Continue to alternate between Vapotherm and BiPAP at night. Patient may qualify for lung reduction surgery given the predominantly upper lobe severe emphysema. He does not follow-up with pulmonary. He may need the PFTs to assess the severity of his emphysema which I suspect is significant. Patient also is at risk having lung cancer. would recommend the patient to have yearly low-dose radiation CAT scan of the chest to screen for lung cancer to be addressed by PCP. Continue Budesonide BID, PEP, vest therapy. Hypertonic saline nebs/IH New onset Afib with RVR- resolved- currently in sinus -Pt went into Afib RVR overnight, started on cardizem bolus followed by drip, however BP was soft, pt was given digoxin doses -Pt converted overnight to NSR, maintained NSR -Continue Cardizem 30 mg QID , avoiding beta blockers given his severe advanced COPD -Echo ordered and reviewed. -Cardiology consult placed. -Pt was started on Full dose Lovenox for AC by overnight hospitalist coverage.Transition to oral on discharge Alcohol use disorder/withdrawal. Patient is vague about the amount of alcohol consumption he drinks. States that he is minimizing his alcohol intake. His stated that the patient has not had alcohol recently. patient on thiamine and folic acid supplements. He is on Valium as needed as directed According to patient's , he barely drinks alcohol these days Stopped CIWA Cachexia, frailty, muscle wasting, failure to thrive, moderate protein calorie mentation. 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 Patient will likely require investigation for his cachexia and weight loss. This may include but not limited to cancer screening such as prostate exam, EGD, colonoscopy and others to be 100 in the outpatient setting. Meanwhile patient on oral protein supplementation. Visual and auditory hallucinations> resolved could be related to his hypoxemia and hypercapnia as well as decompensation of respiratory status. Could be having Wernicke or Korsakoff encephalopathy. stated that the patient has not had alcohol recently however he may still have Korsakoff encephalopathy. patient on thiamine intravenously as listed above. CT head with no acute pathology urine tox screen came back positive for benzo MRI brain done showed mild to moderate chronic microvascular changes. no acute pathology. After investigation and treatment as above, it seems to be related to his hypercapnia and hypoxia, as his hallucinations resolved with the improvement of his respiratory status and co2 levels. CAD. History of cardiac stenting in 2005. Continue Plavix. No clinical evidence of ACS at this time. suspect that the patient has had a progression of CAD since 2005. Functional impairment. Patient is ataxic and unsteady. PT OT eval > recs for SNF Chronic, subacute medical conditions not listed above, abnormal labs and imaging. These would need to be addressed. Could be addressed later on or in the outpatient setting by PCP collaboration with other needed outpatient providers when time and condition are appropriate. Discussed with pt at bedside, all questions answered Continue AVAPS with settings as directed QHS Continue steroids, continue Atrovent QID and Pulmicort nebs, vest therapy Continue Diamox daily Continue to monitor resp status Cardiology consulted. Inpt appreciated. Plan for Eliquis/Xarelto on discharge Continue tele Added Aggressive laxative, monitor for BM. No BM as of today. Added GoLytely and Dulcolax CM following disposition, SNF is the plan, possibly tomorrow 09/16/2025 I am receiving Mr. Quezada today from my colleague. He [facility] all [facility]. He did have a large bowel movement yesterday after his bowel regimen was started by my colleague. He continues to be on Lovenox subcutaneous. His mentation is much better back to his baseline however he still has some increased work of breathing which appears to be his chronic COPD that is almost end-stage. That being said I will give another day with IV steroids as well as Symbicort to add to his regimen. If he improves I will discharge him tomorrow with the plan mentioned above. He is on IV ceftriaxone 1 g every 24 hours and p.o. doxycycline 100 mg p.o. twice daily. I will switch him to DOAC possibly Eliquis on discharge. Continues to be on DuoNebs. For his anxiety working with the BiPAP at night I stopped his Ativan and his diazepam. I am not concerned about him being withdrawing as his CIWA score has been consistently almost 0. I started him alprazolam 0.25 mg nightly as needed as well as hydroxyzine 10 mg every 8 hour as needed for anxiety. This will hopefully help him work with the BiPAP at night. I discussed the plan with the patient is more comfortable with this plan than being discharged today. Discussed the plan also with the nursing team at bedside 09/17/2025 today, the patient is not in any respiratory distress. He is using his BiPAP at night said that he does have some anxiety which I am going to give him Xanax for. Otherwise he is saturating well on 40 nasal cannula which is his baseline. Patient does not show any signs of exposure or distress. His A-fib is well-controlled. I will discharge on Eliquis 5 mg p.o. twice daily as well as on a steroid taper. Also I will discharge him on Augmentin and doxycycline for another 5 days. Discussed the plan with him and the importance of compliance with BiPAP. I also called his and discussed with the plan of management. Answered all her questions. Status at Discharge Overall status at discharge: patient is back to baseline Time Spent with Patient Time attestation: Total time spent providing and/or coordinating discharge services: Exam Narrative Exam Narrative: General: cooperative, not in acute distress, pleasant and cooperative, at baseline mental status HEENT Normal oropharyngeal mucosa without any ulcers or exudates Eyes: Conjunctiva normal Pulmonary Auscultation: Diminished breath sounds bilaterally, patient wheezes improved compared to yesterday. He is able to speak in full sentences not in acute distress at his baseline oxygen 4 L nasal cannula saturating 94 to 95%. Cardiovascular Rate: normal rate Rhythm: regular rhythm Heart Sounds: S1 normal, S2 normal and no murmurs GI Inspection: non-distended Palpation: soft, not firm and nontender. No rigidity or rebound. Neuro General: alert, awake and oriented x3. No obvious new focal deficit Musculoskeletal: normal range of motion Extrem General: no cyanosis, no pedal edema Constitutional Vital Signs, click to edit/add: Last Vital Signs Temp 97.9 F 09/17/25 06:59 Pulse 64 09/17/25 09:50 Resp 18 09/17/25 06:59 BP 121/67 09/17/25 06:59 Pulse Ox 95 09/17/25 09:50 O2 Del Method Nasal Cannula 09/17/25 06:59 O2 Flow Rate 4 09/17/25 06:59 FiO2 30 09/16/25 22:11 DS: Data Data Completed and Pending Labs on day of discharge: Labs from last 24 hours 09/17/25 05:54 WBC 11.2 H RBC 4.05 L Hgb 11.8 L Hct 38.8 L MCV 95.8 H MCH 29.1 MCHC 30.4 RDW 13.1 Plt Count 189 MPV 10.3 Neut % (Auto) 82.0 H Lymph % (Auto) 8.1 L [place] % (Auto) 4.6 Eos % (Auto) 0.0 L Baso % (Auto) 0.3 Neut # (Auto) 9.2 H Lymph # (Auto) 0.9 L [place] # (Auto) 0.5 Eos # (Auto) 0.0 Baso # (Auto) 0.0 Abs Immat Gran (auto) 0.56 H Imm/Tot Granulo (auto) 5.0 H Sodium 143 Potassium 4.4 Chloride 105 Carbon Dioxide 38.6 H Anion Gap 3.8 BUN 35.0 H Creatinine 0.84 Est GFR ( Amer) >60 Est GFR (Non-Af Amer) >60 BUN/Creatinine Ratio 41.7 Glucose 168 H Calcium 8.8 Magnesium 2.3 Discharge Plan Discharge Disposition: Xfer SNF Condition: Fair Discharge Medications: New atorvastatin 20 mg Tablet 20 mg PO DAILY 30 Days Qty: 30 0RF sennosides-docusate sodium 8.6-50 mg Tablet 1 tab PO QD PRN (Reason: Constipation) 10 Days Qty: 10 0RF acetazolamide 250 mg Tablet 250 mg PO DAILY 3 Days Qty: 3 0RF alprazolam 0.25 mg Tablet 0.25 mg PO QHS PRN (Reason: anxiety) 3 Days Qty: 3 0RF doxycycline monohydrate 100 mg Capsule 100 mg PO BID 5 Days Qty: 10 0RF budesonide 0.5 mg/2 mL Suspension For Nebulization 0.5 mg inhalation RTBID@1100,2300 30 Days Qty: 60 0RF diltiazem HCl 60 mg Tablet 30 mg PO QID 30 Days Qty: 60 0RF guaifenesin [Mucinex] 600 mg Tablet Extended Release 12hr 1,200 mg PO BID 10 Days Qty: 40 0RF amoxicillin-pot clavulanate 875-125 mg tablet 1 tab PO BID 5 Days Qty: 10 0RF prednisone 10 mg tablets,dose pack See Rx Instructions .ROUTE .COMPLEX Qty: 39 0RF Rx Instructions: take 60 mg daily (6 tablets) for 3 days followed by 40 mg daily (4 tablets) daily for another 3 days followed by 20 mg daily (2 tablets) for another 3 days followed by 10 mg daily (1 tablet ) for another 3 days Eliquis 5 mg tablet 5 mg PO BID 30 Days Qty: 60 1RF alprazolam [Xanax] 0.25 mg tablet 0.25 mg PO .qhs prn Qty: 3 0RF Continued albuterol sulfate 2.5 mg /3 mL (0.083 %) solution for nebulization 2.5 mg inhalation Q6H PRN (Reason: shortness of breath or wheezing) Breztri Aerosphere 160-9-4.8 mcg/actuation HFA aerosol inhaler 2 inh INHALATION BID ipratropium-albuterol 0.5 mg-3 mg(2.5 mg base)/3 mL solution for nebulization 3 ml INHALATION Q4H PRN (Reason: shortness of breath or wheezing) linaclotide 145 mcg capsule 145 mcg PO DAILY mirtazapine 30 mg tablet 30 mg PO HS omeprazole 20 mg capsule,delayed release(DR/EC) 20 mg PO .unknown ezetimibe-simvastatin [Vytorin 10-40] 10-40 mg tablet 1 tab PO DAILY Changed clopidogrel [Plavix] 75 mg tablet 75 mg PO .qod Qty: 0 0RF Rx Instructions: Every other day Discontinued doxazosin [Cardura] 2 mg tablet 2 mg PO DAILY Print Language: Malay 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 [phone]igan
[2025-09-17] MEDS: BUDESONIDE 0.5 MG/2 ML AMPULE NEB IH (11:25)
--- NOTE | 2025-09-17 11:36 | SWNOTE1 ---
Pt is stable for discharge today. Pt will be discharged on Eliquis and this is new to him. ROB called Cheryle at [facility] and let her know, she requested SW send over dc med rec and she will run it by the DON. ROB faxed dc med rec. ROB also let her know that pt was frustrated with the AVAPS last night, but he did keep it on. ROB advised he was doing it 2 hours on and 2 hours off. There respiratory team and head irrigator will follow patient at [facility].
--- NOTE | 2025-09-17 11:38 | SWNOTE1 ---
Cheryle did send SW an email and they are good with [facility].
--- NOTE | 2025-09-17 12:07 | SWNOTE1 ---
ROB spoke to pt and and they are aware of discharge today. ROB spoke with them about transport. Pt prefers to go by wheelchair over stretcher. SW to call trips. SW did speak with pt and about Eliquis. is aware that Eliquis is expensive, SW did recommend having the SW assist when closer to discharge from [facility]. She voiced understanding. ROB called and set up trips for 12:45-1:00. ROB notified Cheryle at [facility], pt and , and nurse of time. ROB already completed PASRR. ROB faxed dc med rec to Cheryle at [facility]. Pt is going skilled.
--- OUTSIDE RECORDS SUMMARY | 2025-09-17 14:25 | XMS_ITS | Clinical Summary ---
Author Organization [facility] tem Address [id number] 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 Role Phone Unavailable Primary Care Provider Unavailabl e Social History Tobacco UseTypesPacks/DayYears UsedDateSmoking Tobacco: Never AssessedChildcare AnswerDate RxledtqiIhsqkbzhlBlooqhm00/12/2019EmploymentAnswerDate Recorded PvkfikbfwdCvxoqdb99/12/2019Purpose - LifeAnswerDate RecordedPurpose and direction in fzadVgpdovo02/11/2021ex and Gender InformationValueDate Recorded Sex Assigned at BirthNot on fileLegal GvoPawo8707/03/2015 12:03 PM EDTGender IdentityNot on fileSexual OrientationNot on file Last Filed Vital Signs Vital SignReadingTime TakenCommentsBlood Pressure--Pulse--Temperature-- Respiratory Rate--Oxygen Saturation--Inhaled Oxygen Concentration--Hzaypn31.3 kg (155 lb)03/10/2022 1:00 AM EDTHeight--Body Mass Index-- Plan of Treatment Health MaintenanceDue DateLast DoneCommentsDepression Ebxqpaeih81/25/1964Tobacco Pnrqrpfhs85/25/1964Adult BMI Ehahaixgo78/25/1970DTaP,Tdap and Td Vaccines (1 - Tdap)1971Zoster (Shingles) Vaccine (1 of 2)2002Fall Risk Screening 2017Influenza Ectkfxx89/01/465229/, 10/31/2019, 10/31/2019, Additional history exists Medical Devices Not on file Insurance * Guarantor: Tunde Quezad[place]ochika TypeRelation to PatientDate of BirthPhone Billing AddressPersonal/BdmqakBecy1950 [address] [place] [address]
--- OUTSIDE RECORDS SUMMARY | 2025-09-17 14:27 | XMS_ITS | Clinical Summary ---
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 Name Role Phone Radames Mart MD Unavailable [phone] Radames Mart MD Primary Care Provider [phone] Allergies No known active allergies Medications MedicationSigDispense QuantityRefillsLast FilledStart DateEnd DateStatus clopidogrel (Plavix) 75 MG tablet 1 (one) time each day at the same time.Active ezetimibe-simvastatin (Vytorin) 10-40 MG tablet 1 (one) time each day at the same time.Active triamcinolone (Nasacort Allergy 24HR) 55 MCG/ACT nasal inhaler 1 (one) time each day at the same time.Active oxygen (O2) gas Inhale 2 L/min continuously.Active mirtazapine (Remeron) 30 MG tablet Indications:Insomnia due to medical condition1 tablet Orally at bedtime 90 tablet ctive linaCLOtide (Linzess) 145 MCG capsule Indications:Chronic idiopathic constipationTake 1 capsule (145 mcg) by mouth in the morning. Take before meals. Do not crush or chew.. 30 capsule 11001/24/2024ctive omeprazole OTC (PriLOSEC OTC) 20 MG EC tablet Take 20 mg by mouth in the morning. Take before meals.02/03/2024ctive doxazosin (Cardura) 2 MG tablet Take 2 mg by mouth at vrhmmif2602/03/2024ctive prazosin (Minipress) 5 MG capsule Take 5 mg by mouth at bedtimeActive Qjjouza-Ustddtdgpme-Khvfihgjyl (Breztri Aerosphere) 160-9-4.8 MCG/ACT aerosol Indications:Chronic obstructive pulmonary disease, unspecified COPD type (HCC) Inhale 2 puffs in the morning and 2 puffs before bedtime. 10.7 g 5Active ipratropium-albuterol (Duo-Neb) 0.5-2.5 mg/3 mL nebulizer solution Indications:Centrilobular emphysema (HCC)Take 3 mL by nebulization 4 (four) times a day as needed for wheezing or shortness of breath 150 mL 5Active Respiratory Therapy Supplies (Nebulizer/Tubing/Mouthpiece) kit Indications:Centrilobular emphysema (HCC)1 kit Daily 1 kit 5Active Active Problems ProblemNoted DateDiagnosed DateExposure to potentially hazardous substance 5Age-related nuclear cataract, lskkbnfax81/02/2024Hyperlipidemia 03/29/2024Major depressive bysffbtk62/02/2024Posttraumatic stress disorder 0240Ykqqedi08/19/2023Centrilobular xukhwjpkp37/19/2023Chronic obstructive pulmonary /19/0024Gsaaboaunpaj69/19/2023Coronary atherosclerosis 06/15/2023Elevated PSA06/15/2023ERD (gastroesophageal reflux disease)06/15/2023 Lung yqnjpt3406/15/2023Malignant tumor of eijedjuc49/19/2023Nocturnal leg cramps 06/15/2023Oxygen havyzktbk25/19/2023Peripheral vascular nexazgl91/19/2023Pure lhjudyskfcdckoroohns23/19/2023History of colonic jmttlr6102/26/2022ramp in lower leg associated with rest06/27/2018 Encounters DateTypeDepartmentCare YexxOcuvfoxkhhh02/10/2025Clinisync Result Encounter [facility] External [facility] Unsolicited Provider, Generic External Data from Last 3 Months Immunizations ImmunizationAdministration DatesNext DueInfluenza, High Dose Seasonal, Preservative Free09/20/2020,10/31/2019,09/29/2017Influenza, High-dose Seasonal, Quadrivalent, Preservative Free02/03/2024,09/20/2020,10/31/2019Influenza, Seasonal, Quadrivalent, Vzxzzqkzhi18/22/2022,02/12/2022Influenza, Unspecified 09/06/2015,08/28/2014,11/08/2013Influenza, injectable, zwrncqbutsbm89/18/2016 Influenza, injectable, quadrivalent, preservative free09/14/2016Pfizer Purple Cap SARS-CoV-2 Aobdigxazky21/08/2022,01/29/2021,1Pneumococcal Conjugate PCV 4Pneumococcal Polysaccharide GZTI4202,05/31/2019, 10/28/2012Tdap04Zoster, Cdrsgtsycih74/29/2020,01/28/2020 Social History Tobacco UseTypesPacks/DayYears UsedDateSmoking Tobacco: FormerCigarettes Smokeless Tobacco: Never Tobacco Cessation:Counseling Given: Not Answered Alcohol UseStandard Drinks/WeekCommentsYes0 (1 standard drink = 0.6 oz pure alcohol)caffeine 1-2 cups per dayPHQ-2AnswerDate RecordedPatient Health Questionnaire-2 Fumuk950Sex and Gender InformationValueDate RecordedSex Assigned at BirthNot on fileLegal KzjVank1602/09/2023 7:16 PM EDTGender Identity Not on fileSexual OrientationNot on file Last Filed Vital Signs Vital SignReadingTime TakenCommentsBlood Cplaszcp712/72002/07/2025 1:14 PM EDT Paqhv322406/04/2024 3:44 PM SKKLfglgzfuvuc15.4 ??C (99.3 ??F)02/07/2025 1:14 PM EDTRespiratory Vrey462102/07/2025 1:14 PM EDTOxygen Yxraownpcr62%02/07/2025 1:14 PM EDTInhaled Oxygen Concentration--Pmybfg39.9 kg (189 lb 6.4 oz)02/07/2025 1:14 PM UHRGeybjg099.8 cm (5' 10 )02/07/2025 1:14 PM EDTBody Mass Index27.18 02/07/2025 1:14 PM EDT Plan of Treatment Health MaintenanceDue DateLast DoneCommentsCT Fkjxenefbnyy1952FIT-DNA 1950FIT1950FOBT1950 7873Lusoqfiagpdri1952Influenza Vaccine (#1)503/06/2024, 10/19/2022, 02/12/2022, Additional history exists Zndpzdolqoc02/07/203204/05/2022, 10/13/2015Colorectal Cancer Czlxekjvw91/07/2032 Pneumococcal Vaccine: 65+ QmhgvAxwoesnrf95/08/2024, 01/28/2020, 05/31/2019, Additional history exists Procedures Procedure NamePriorityDate/TimeAssociated DiagnosisCommentsBLOOD CULTURE 2 Sqauycx8309/06/2025 11:10 PM EDT BLOOD CULTURE 3Meibaex12/10/2025 10:14 PM EDT UCUCGULVKWWXmeatqd54/07/2022 12:00 PM EDT Personal history of colonic polyps Hemorrhage of anus and rectum from Last 3 Months or Most Recently Relevant to Health Maintenance Results * BLOOD CULTURE 2 (09/06/2025 11:10 PM EDT)ComponentValueRef RangeTest Method Analysis TimePerformed AtPathologist SignatureBLOOD CULTURE 2 ??Blood Culture 2 NG5D NO GROWTH AT 5 DAYS.^NO GROWTH AT 5 DAYS. TBHSpecimen (Source)Anatomical Location / LateralityCollection Method / Volume Collection TimeReceived Time09/06/2025 11:10 PM EDT1 11:13 PM EDT Narrative BLAZENC - 09/12/2025 3:05 PM EDT Authorizing ProviderResult TypeResult StatusGeneric External Data ProviderLAB BLOOD ORDERABLESFinal ResultPerforming OrganizationAddressCity/State/ZIP Code Phone Number [facility] * BLOOD CULTURE 1 (09/06/2025 10:14 PM EDT)ComponentValueRef RangeTest Method Analysis TimePerformed AtPathologist SignatureBLOOD CULTURE 1 ??Blood Culture 1 NG5D NO GROWTH AT 5 DAYS.^NO GROWTH AT 5 DAYS. TBHSpecimen (Source)Anatomical Location / LateralityCollection Method / Volume Collection TimeReceived Time09/06/2025 10:14 PM EDT1 10:47 PM EDT Narrative [facility] - 09/12/2025 3:04 PM EDT Authorizing ProviderResult TypeResult StatusGeneric External Data ProviderLAB BLOOD ORDERABLESFinal ResultPerforming OrganizationAddressCity/State/ZIP Code Phone Number [facility] * Colonoscopy (03/04/2022 12:00 PM EDT)Anatomical RegionLateralityModality EndoscopySpecimen (Source)Anatomical Location / LateralityCollection Method / VolumeCollection TimeReceived Time03/04/2022 12:00 PM EDT Narrative 03/04/2022 12:00 PM EDT PERFORMED AT [facility] LOCATION:[id number] Procedure Note CONVERSION, GENERIC - 06/08/2023 PERFORMED AT [facility] LOCATION:[id number] Authorizing ProviderResult TypeResult StatusIsh Kinsey MDENDOSCOPY PROCEDURE ORDERABLESFinal Result from Last 3 Months or Most Recently Relevant to Health Maintenance Insurance Care Teams Team MemberRelationshipSpecialtyStart DateEnd Date Radames Mart MD [address] [address] PCP - ACO [facility]04/21/23 Radames Mart MD [address] [facility] [address] [place] [address] [facility]06/16/23
--- OUTSIDE RECORDS SUMMARY | 2025-09-17 14:28 | XMS_ITS | Encounter Summary ---
Author Organization [facility] Address [address] [place] [address] Care Team Providers Care Manual Winder Name Role Phone Radames Mart MD Unavailable [phone] Radames Mart MD Primary Care Provider [phone] Encounter Details DateTypeDepartmentCare Team (Latest Contact Info)Bemqfnyinfy53/10/2025linisync Result Encounter [facility] External [facility] Unsolicited Provider, Generic External Data Social History Tobacco UseTypesPacks/DayYears UsedDateSmoking Tobacco: FormerCigarettes Smokeless Tobacco: NeverAlcohol UseStandard Drinks/WeekCommentsYes0 (1 standard drink = 0.6 oz pure alcohol)caffeine 1-2 cups per dayPHQ-2AnswerDate Recorded Patient Health Questionnaire-2 Qawrp342Sex and Gender InformationValue Date RecordedSex Assigned at BirthNot on fileLegal KzoBgax8902/09/2023 7:16 PM EDT Gender IdentityNot on fileSexual OrientationNot on filedocumented as of this encounter Plan of Treatment Not on file documented as of this encounter Procedures Procedure NamePriorityDate/TimeAssociated DiagnosisCommentsBLOOD CULTURE 2 Mqpagjq9609/06/2025 11:10 PM EDT BLOOD CULTURE 8Ktvgivh72/10/2025 10:14 PM EDT documented in this encounter Results * BLOOD CULTURE 2 (09/06/2025 11:10 PM EDT)ComponentValueRef RangeTest Method Analysis TimePerformed AtPathologist SignatureBLOOD CULTURE 2 ??Blood Culture 2 NG5D NO GROWTH AT 5 DAYS.^NO GROWTH AT 5 DAYS. TBHSpecimen (Source)Anatomical Location / LateralityCollection Method / Volume Collection TimeReceived Time09/06/2025 11:10 PM EDT1 11:13 PM EDT Narrative [facility] - 09/12/2025 3:05 PM EDT Authorizing ProviderResult TypeResult StatusGeneric External Data ProviderLAB BLOOD ORDERABLESFinal ResultPerforming OrganizationAddressty/State/ZIP Code Phone Number [facility] * BLOOD CULTURE 1 (09/06/2025 10:14 PM EDT)ComponentValueRef RangeTest Method Analysis TimePerformed AtPathologist SignatureBLOOD CULTURE 1 ??Blood Culture 1 NG5D NO GROWTH AT 5 DAYS.^NO GROWTH AT 5 DAYS. TBHSpecimen (Source)Anatomical Location / LateralityCollection Method / Volume Collection TimeReceived Time09/06/2025 10:14 PM EDT1 10:47 PM EDT Narrative [facility] - 09/12/2025 3:04 PM EDT Authorizing ProviderResult TypeResult StatusGeneric External Data ProviderLAB BLOOD ORDERABLESFinal ResultPerforming OrganizationAddressCity/State/ZIP Code Phone Number [facility] documented in this encounter Visit Diagnoses Not on filedocumented in this encounter Care Teams Team MemberRelationshipSpecialtyStart DateEnd Radames Mart MD [address] [place] [address] PCP - [facility]04/21/23 Radames Mart MD [address] [place] [address] PCP - GeneralInternal Medicine06/16/23documented as of this encounter
--- OUTSIDE RECORDS SUMMARY | 2025-09-17 14:28 | XMS_ITS | CCD ---
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 Name Role Phone Radames Mart MD Primary Care Provider MAYDA CASTRO Admitting Unavailable MAYDA CASTRO Attending Unavailable RADAMES MART Primary Care Unavailable MAYDA CASTRO Referring Unavailable RADAMES MART Primary Care Unavailable RADAMES MART Primary Care Unavailable MAYAD CASTRO Referring Unavailable Orlando Valencia Unavailable MISC, [...] Unavailable Mayda Castro Attending Unavailable Allergies Allergy ClassificationReported Allergen(s)Allergy TypeDate of OnsetReaction(s) Facility (1 source)TheophyllineDrug AllergydizzinessNorth [place] Other (1 source)Dust; Translations: [Dust]Propensity to adverse reactions (disorder) [facility] Repository Medications Current Medications MedicationDrug Class(es)DatesSig (Normalized)Sig (Original)30 actuat aclidinium bromide 0.4 mg/actuat dry powder inhaler (4 sources)Start: 19-60-2727Qoixktt Pressair 400 MCG/ACT inhaler Indications: Centrilobular emphysema (CMS/HCC) INHALE 1 PUFF BY MOUTH TWICE DAILY. *Discard inhaler ONCE EMPTY OR 45 DAYS AFTER opening from sealed bag* 3 each 4 02/09/2024 Activetake 1 puff(s) by mouth twice dailyaclidinium (TUDORZA PRESSAIR) 400 MCG/ACT AEPB inhaler INHALE 1 PUFF BY MOUTH 2 TIMES A DAY 0 Activetake 1 puff(s) by inhalation at bedtimeACLIDINIUM BROMIDE IN Inhale 1 puff into the lungs in the morning and at bedtime 0 ActiveAclidinium Sandy 400 MCG/ACT (1 source)take 1 puff(s) by inhalation once dailyAclidinium Sandy 400 MCG/ACT 1 puff Inhalation daily Activealbuterol 0.83 mg/ml inhalation solution (4 sources)beta2-Adrenergic AgonistStart: 47-21-0579oumiqzotj (2.5 MG/3ML) 0.083% nebulizer solution Indications: Centrilobular emphysema (CMS/HCC) INHALE 1 VIAL VIA NEBULIZER EVERY 6 HOURS NEEDED FOR WHEEZE 75 mL 2 01/28/2025 Activetake 2 puff(s) by inhalation four times dailyAlbuterol Sulfate HFA 108 (90 Base) MCG/ACT 2 puffs Inhalation four times a day Activetake 2 puff(s) by inhalation every six hours as neededALBUTEROL IN Inhale 2 puffs into the lungs every 6 hours PRN 0 Activealbuterol 0.833 mg/ml / ipratropium bromide 0.167 mg/ml inhalation solution (2 sources)Anticholinergic, beta2-Adrenergic AgonistStart: 02-07-2025 ipratropium-albuterol (Duo-Neb) 0.5-2.5 mg/3 mL nebulizer solution Indications: Centrilobular emphysema (HCC) Take 3 mL by nebulization 4 (four) times a day as needed for wheezing or shortness of breath 150 mL 5 02/07/2025 Active bicalutamide 50 mg oral tablet (1 source)Androgen Receptor Inhibitortake 1 tablet by mouth every twenty-four hoursBicalutamide 50 MG 1 tablet Orally Once a day Fpzvqi496 actuat budesonide 0.16 mg/actuat / formoterol fumarate 0.0045 mg/actuat metered dose inhaler (1 source)Corticosteroid, beta2-Adrenergic Agonisttake 2 puff(s) by inhalation twice dailyBudesonide-Formoterol Fumarate 160-4.5 MCG/ACT 2 puffs Inhalation Twice a day Waqedy934 actuat budesonide 0.16 mg/actuat / formoterol fumarate 0.0048 mg/actuat / glycopyrrolate 0.009 mg/actuat metered dose inhaler (2 sources)Corticosteroid, beta2-Adrenergic AgonistStart: 58-71-1418srda 2 puff(s) by inhalation in the dmgpywgQlxfigt-Dgzybaqxuof-Kiycgopysz (Breztri Aerosphere) 160-9-4.8 MCG/ACT aerosol Indications: Chronic obstructive pulmonary disease, unspecified COPD type (HCC) Inhale 2 puffs in the morning and 2 puffs before bedtime. 10.7 g 5 02/07/2025 Activecalcium chloride 0.0014 meq/ml / potassium chloride 0.004 meq/ml / sodium chloride 0.103 meq/ml / sodium lactate 0.028 meq/ml injectable solution (1 source)Start: 83-02-4591zyktvesg ringers infusionStart: 95-87-2461ibiuawqn ringers infusionclopidogrel 75 mg oral tablet (6 sources)P2Y12 Platelet Inhibitorclopidogrel (Plavix) 75 MG tablet 1 (one) time each day at the same time. Activedoxazosin 2 mg oral tablet (5 sources)alpha-Adrenergic BlockerStart: 72-09-2474eirq 1 tablet by mouth at bedtimedoxazosin (Cardura) 2 MG tablet Take 2 mg by mouth at bedtime 02/03/2024 ActiveStart: 48-42-5608XTZVHQNOE MESYLATE POtake 1 tablet by mouth every twenty- four hoursDoxazosin Mesylate 2 MG 1 tablet Orally Once a day Activeezetimibe 10 mg / simvastatin 40 mg oral tablet (3 sources)HMG-CoA Reductase Inhibitor, Dietary Cholesterol Absorption Inhibitor ezetimibe-simvastatin (Vytorin) 10-40 MG tablet 1 (one) time each day at the same time. Mhyqsu80 actuat fluticasone propionate 0.25 mg/actuat / salmeterol 0.05 mg/actuat dry powder inhaler (2 sources)Corticosteroid, beta2-Adrenergic Agonisttake 1 puff(s) by inhalation every twelve hoursfluticasone-salmeterol (ADVAIR) 250-50 MCG/ACT AEPB diskus inhaler Inhale 1 puff into the lungs every 12 hours 0 Uzcxld66 ml lidocaine hydrochloride 10 mg/ml injection (1 source)Antiarrhythmic, Amide Local AnestheticStart: 05-04-2022 End: 52-81-1351jclbotdkj PF 1 % injection 1 mLlinaclotide 0.145 mg oral capsule (2 sources)Guanylate Cyclase-C AgonistStart: 18-68-8298eqmv 1 capsule by mouth before mealtimelinaCLOtide (Linzess) 145 MCG capsule Indications: Chronic idiopathic constipation Take 1 capsule (145 mcg) by mouth in the morning. Take before meals. Do not crush or chew.. 30 capsule 11 01/24/2024ctiveLinzess PRN Activemirtazapine 30 mg oral tablet (7 sources)Start: 75-19-5926xahv 1 tablet by mouth at bedtimemirtazapine (Remeron) 30 MG tablet Indications: Insomnia due to medical condition 1 tablet Orally at bedtime 90 tablet 3 06/21/2023 Activetake 1 tablet by mouth every twenty-four hoursMirtazapine 30 MG 1 tablet at bedtime Orally Once a day Active mirtazapine (REMERON) 15 MG tablet 1 tablet 0 Activetake 1 tablet by mouth once dailymirtazapine (REMERON JESSE-TAB) 30 MG disintegrating tablet Take 30 mg by mouth nightly 0 Activeomeprazole 20 mg delayed release oral tablet (6 sources)Proton Pump InhibitorStart: 89-91-3626pjeq 1 tablet by mouth before mealtimeomeprazole OTC (PriLOSEC OTC) 20 MG EC tablet Take 20 mg by mouth in the morning. Take before meals. 02/03/2024 Activetake 1 capsule by mouth once daily PriLOSEC 20 MG 1 capsule Orally Once a day for 30 day(s) ActiveOxygen (3 sources)oxygen (O2) gas Inhale 2 L/min continuously. ActiveOxygen 2 liters (1 source)Oxygen 2 liters Activeprazosin 5 mg oral capsule (2 sources)alpha-Adrenergic Blockertake 1 capsule by mouth at bedtimeprazosin (Minipress) 5 MG capsule Take 5 mg by mouth at bedtime ActiveRespiratory Therapy Supplies (Nebulizer/Tubing/Mouthpiece) kit (2 sources)Start: 49-73-5775Uxiidpntfwx Therapy Supplies (Nebulizer/Tubing/Mouthpiece) kit Indications: Centrilobular emphysema(HCC) 1 kit Daily 1 kit 03/25/2025 Activesimvastatin 40 mg oral tablet (3 sources)HMG-CoA Reductase Inhibitortake 1 tablet by mouth once daily in the eveningSimvastatin 40 MG 1 tablet in the evening Orally Once a day Active5 ml sodium chloride 9 mg/ml injection (3 sources)Start: .9 % sodium chloride infusionStart: 05-03-2022 sodium chloride flush 0.9 % injection 5-40 mLtriamcinolone acetonide 0.055 mg/actuat metered dose nasal spray (3 sources)Corticosteroidtriamcinolone (Nasacort Allergy 24HR) 55 MCG/ACT nasal inhaler 1 (one) time each day at the same time. ActiveWixela Inhub 500-50 MCG/DOSE (1 source)Start: 38-74-3599nfrr 1 puff(s) by inhalation twice dailyWixela Inhub 500-50 MCG/DOSE 1 puff Inhalation Twice a day for 30 days Apr, Active Problems Active Problems Problem ClassificationProblemDateDocumented DateEpisodic/ChronicAnxiety disorders (6 sources)Anxiety; Translations: [Anxiety disorder, unspecified]Onset: 797145-67-9701WqvzlplFsxrzt of prostate (8 sources)Malignant neoplasm of prostate; Translations: [Malignant tumor of prostate]Onset: 88-30-4451MxdxvnwWhlwvcrh (3 sources)Bilateral age-related nuclear cataracts; Translations: [Age-related nuclear cataract, bilateral]Onset: 929217-18-5210DgsjkdzDgalqjq obstructive pulmonary disease and bronchiectasis (7 sources)Emphysema; Translations: [Emphysema, unspecified]Onset: 06-15-2023 38-97-7317RnqauylJeskaulq atherosclerosis and other heart disease (3 sources)Coronary atherosclerosis; Translations: [Atherosclerotic heart disease of [place] coronary artery without angina pectoris]Onset: 06-15-2023 47-97-6536MgtfgylWzfstejzc of lipid metabolism (6 sources)Pure hypercholesterolemia; Translations: [Pure hypercholesterolemia, unspecified]Onset: 224709-34-9416HwicbomDnvtncutrb disorders (3 sources)Gastroesophageal reflux disease; Translations: [Gastro-esophageal reflux disease without esophagitis]Onset: 422737-67-9408YpdpzhqYvwxsjmunhb of prostate (1 source)Benign prostatic hyperplasia with lower urinary tract symptoms; Translations: [Benign prostatic hyperplasia with lower urinary tract symptoms] Onset: 05-45-5739QbeanapQuikwojaeudvq and screening for infectious disease (1 source)Contact with and (suspected) exposure to tuberculosis; Translations: [Exposure to tuberculosis (event)]EpisodicMood disorders (3 sources)Major depressive disorder; Translations: [Major depressive disorder, single episode, unspecified]Onset: 474490-43-7293OnueatnCdnhk connective tissue disease (3 sources)Cramp in lower limb; Translations: [Sleep related leg cramps]Onset: 805584-10-4444VttgvsbMgqkz diseases of kidney and ureters (1 source)Other obstructive and reflux uropathy; Translations: [Other obstructive and reflux uropathy]Onset: 90-52-7753IofjmhkzCvtpy gastrointestinal disorders (1 source)Flatulence, eructation and gas pain; Translations: [Abdominal distension (gaseous)]EpisodicOther gastrointestinal disorders (1 source)Abdominal distension (gaseous)EpisodicOther gastrointestinal disorders (1 source)Constipation, unspecifiedEpisodicOther lower respiratory disease (1 source)Multiple nodules of lung; Translations: [Other nonspecific abnormal finding of lung field]EpisodicPeripheral and visceral atherosclerosis (3 sources)Peripheral vascular disease; Translations: [Peripheral vascular disease, unspecified]Onset: 065959-11-5270AexhyrqFnzkejrewin failure; insufficiency; arrest (adult) (3 sources)Dependence on supplemental oxygen; Translations: [Dependence on supplemental oxygen]Onset: hronic Past or Other Problems Problem ClassificationProblemDateDocumented DateEpisodic/ChronicOther and unspecified benign neoplasm (3 sources)History of polyp of colon; Translations: [History of colonic polyps] Onset: 552738-86-0447HawxvbdtFgepx connective tissue disease (3 sources)Cramp in lower leg associated with rest; Translations: [Cramp and spasm]Onset: 734982-88-5911AsfmmnmcQdkqk gastrointestinal disorders (4 sources)Constipation; Translations: [Constipation, unspecified]Onset: 979899-83-7562SgnpeqyeFsmxv lower respiratory disease (3 sources)Nodule of lung; Translations: [Solitary pulmonary nodule]Onset: 120265-97-0053YiynhgdgKdxxz screening for suspected conditions (not mental disorders or infectious disease) (4 sources)Raised prostate specific antigen; Translations: [Elevated prostate specific antigen [PSA]]Onset: 75-74-6060PsikhhdvCsnvcsbh codes; unclassified (2 sources)Contact with and (suspected) exposure to other hazardous substances; Translations: [Contact with and (suspected) exposure to other potentially hazardous substances]Onset: 186636-29-9758Ygctrdbt Results Test NameValueInterpretationReference RangeFacilityLab - Other Lab Resultson [id number] - Other Lab Results [id number]#[id number]. Francis Hospital [facility] BODYon 62-78-5374ZSST. [facility] BODYEXAMINATION: [place] [facility] BODY HISTORY: Primary malignant neoplasm of prostate COMPARISON: No relevant comparison available. TECHNIQUE: After obtaining the patient's consent, 25.5 mCi Technetium 99m MDP was injected intravenously. Images were obtained approximately two hours later. FINDINGS: ABNORMALITIES: No abnormal or suspicious radiotracer accumulation. OTHER: Negative. IMPRESSION: 1. No evidence of skeletal metastasis. Electronically authenticated by: BLAYNE YOUNG Date: 2022-07-26 14:[address] [place], [place] [address]urgical Pathologyon [id number] Pathology(NOTE) -- Diagnosis -- A. PROSTATE, RIGHT BASE [...] THE ADENOCARCINOMA IN THE INVOLVED BIOPSIES. 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 * THIS TEST WAS DEVELOPED AND ITS PERFORMANCE CHARACTERISTICS DETERMINED BY [facility] ANATOMIC PATHOLOGY. IT HAS [...] SURGICAL PATHOLOGY CONSULTATION Patient Name: BRIAN QUEZADA [facility] Rec: [id number] Path Number: [id number] [facility]ITALVerifcient Technologies [facility] ANATOMIC PATHOLOGY [address] [place] [id number] NormalMercy Health Anderson HospitalComment on above:Performed By: #### PPPVS #### [employer] [address] [place] [address] Tracing Lathe Set Up Operator: Brady Wilkes MDEKG 12 LeadOrdered By: Ney Ferrara on 57-56-6454Tddptp Cqqi17LXGDNP [employer] Work Phone: P Okyd25vckzprzMEH [employer] Work Phone: [phone]-R Rsumhlpn989 msBON [employer] Work Phone: Q-T Spsqegwh857 [employer] Work Phone: QRS Lbpzrmsm19 msBON [employer] Work Phone: QTc Calculation (Bazett)410 msBON [employer] Work Phone: R Dbpl98jfheikuMOD [employer] Work Phone: T Hpuu35iidgtlkHBRVMIX Media Work Phone: [phone] Mapz05ESYHFJ [employer] Work Phone: BON [employer] Work Phone: [phone] 12 Leadon 57-22-7850Vxbova sinus rhythm Low voltage QRS Borderline ECG No previous ECGs availablePAOLI [facility] Ney Mims MD - 04/24/2022 Normal sinus rhythm Low voltage QRS Borderline ECG No previous ECGs availableBON [employer] Work Phone: bUN & Creatinineon 54-54-6772Kldnqnhwpk [Mass/Vol]0.93 mg/dL0.70 - 1.20 mg/dLBON Infused Medical TechnologyGFR >60>60 mL/min BON Infused Medical TechnologyGFR Non->60>60 mL/minBON Infused Medical TechnologyGFR/1.73 sq M.predicted MDRD (S/P/Bld) [Vol rate/Area]BON [facility]ENTERCommunson medical center on above:Average GFR for 60-69 years old: 85 mL/min/1.73sq m Chronic Kidney Disease: <60 mL/min/1.73sq m Kidney failure: <15 mL/min/1.73sq m eGFR calculated using average adult body mass. Additional eGFR calculator available at: http://www.[employer]/multiple_crcl_2012.htm Urea nitrogen (BldV) [Mass/Vol]10 mg/dL8 - 23 mg/dLBON UN[facility] MEDICAL CENTERBUN + Creatinineon 04-23-2022(cont.)NormalMercy Health Anderson HospitalCommunson medical center on above: Result Comment: Average GFR for 60-69 years old: 85 mL/min/1.73sq m Chronic Kidney Disease: <60 mL/min/1.73sq m Kidney failure: <15 mL/min/1.73sq m eGFR calculated using average adult body mass. Additional eGFR calculator available at: http://www.[employer]/multiple_crcl_2012.htmPerformed By: #### CBC, BUNCRT, LYTE #### [facility] [address] [place] [address] Tracing Lathe Set Up Operator: JAYDE uSbramanianreatinine [Mass/Vol]0.93 mg/dLNormal0.70-1.20 [facility] Anderson HospitalCommunson medical center on above:Performed By: #### CBC, BUNCRT, LYTE #### [facility] [address] [place] [address] Tracing Lathe Set Up Operator: ERIC Subramanian, Amer>60Normal>60MerLourdes Counseling CenterCommunson medical center on above:Performed By: #### CBC, BUNCRT, LYTE #### [facility] [address] [place] [address] Tracing Lathe Set Up Operator: ERIC Subramanian,non Amer>60Normal>60Mer[facility]madge HospitalComment on above:Performed By: #### CBC, BUNCRT, LYTE #### [facility] [address] [place] [address] Tracing Lathe Set Up Operator: Jean-Pierre Gallardo MDUrea nitrogen [Mass/Vol]10 mg/dLNormal8-23MerLourdes Counseling CenterComment on above:Performed By: #### CBC, BUNCRT, LYTE #### [facility] [address] [place] [address] Tracing Lathe Set Up Operator: Bob Subramanian 04-00-8473Xkmtbjlsvlw distribution width (RBC) [Ratio]11.9 %Uuzypc22.8-14.4Mer[facility] Health Anderson HospitalComment on above: Performed By: #### CBC, BUNCRT, LYTE #### [facility] [address] [place] [address] Tracing Lathe Set Up Operator: Jean-Pierre Gallardo MDHematocrit (Bld) [Volume fraction]45.0 %Normal 40.7-50.3Mcity hospitaly Forks Community HospitalComment on above:Performed By: #### CBC, BUNCRT, LYTE #### [facility] [address] [place] [address] Tracing Lathe Set Up Operator: Jean-Pierre Gallardo MDHemoglobin (Bld) [Mass/Vol]14.1 g/dLNormal 13.0-17.0Mer[facility] Health Anderson HospitalComment on above:Performed By: #### CBC, BUNCRT, LYTE #### [facility] [address] [place] [address] Tracing Lathe Set Up Operator: PAVAN SubramanianCH (RBC) [Entitic mass]30.5 tiRibmko40.2-33.5 [facility] Anderson HospitalComment on above:Performed By: #### CBC, BUNCRT, LYTE #### [facility] [address] [place], [place] [address] [address] Tracing Lathe Set Up Operator: PAVAN SubramanianCHC (RBC) [Mass/Vol]31.3 g/yHAtcqyt19.4-34.8 [facility] HospitalCommunson medical center on above:Performed By: #### CBC, BUNCRT, LYTE #### [facility] [address] [place] [address]. [place] [address] Tracing Lathe Set Up Operator: PAVAN SubramanianCV (RBC) [Entitic vol]97.4 tUHxinvu94.6-102.9 [facility] HospitalCommunson medical center on above:Performed By: #### CBC, BUNCRT, LYTE #### [facility] [address] [place] [address]. [place] [address] Tracing Lathe Set Up Operator: TIMOTHY SubramanianBC Automated0.0 per 100 WBCNormal0.0Mer[facility] Health Anderson HospitalCommunson medical center on above:Performed By: #### CBC, BUNCRT, LYTE #### [facility] [address] [place] [address]. [place] [address] Tracing Lathe Set Up Operator: Sarah Subramanian mean volume (Bld) [Entitic vol]9.9 fL Normal8.1-13.5Mer[facility] Anderson HospitalCommunson medical center on above:Performed By: #### JAZMINE, BUNCRT, LYTE #### [facility] [address] [place] [address]. [place] [address] Tracing Lathe Set Up Operator: Srinivas Subramanian (Bld) [#/Vol]162 10*3/uOYmyhtg300-843 [facility] HospitalCommunson medical center on above:Performed By: #### CBC, BUNCRT, LYTE #### [facility] [address] [place] [address]. [place] [address] Tracing Lathe Set Up Operator: KAYLEE SubramanianBC (Bld) [#/Vol]4.62 10*6/uLNormal4.21-5.77 [facility] Anderson HospitalComment on above:Performed By: #### CBC, BUNCRT, LYTE #### [facility] [address] [place], [place] [address] Tracing Lathe Set Up Operator: Jean-Pierre Gallardo MDWBC (Bld) [#/Vol]9.2 10*3/uLNormal3.5-11.3Mcity hospitaly Forks Community HospitalComment on above:Performed By: #### CBC, BUNCRT, LYTE #### [facility] [address] [place] [address] Tracing Lathe Set Up Operator: Jean-Pierre Gallardo MDHematocrit (Bld) [Volume fraction]45.0 %40.7 - 50.3 %CAR[facility] MEM[facility]IAL HOSPITALHemoglobin.gastrointestinal spec 1 Ql (Stl)14.1 g/dL13.0 - 17.0 g/dLBON [facility] HOSPITALH (RBC) [Entitic mass]30.5 pg25.2 - 33.5 pgBON [facility]OWER HOSPITALHC (RBC) [Mass/Vol]31.3 g/dL28.4 - 34.8 g/dL [facility]ENTERV (RBC) [Entitic vol]97.4 fL82.6 - 102.9 fLCARILION ROANOKE MEMORIAL HOSPITALNRBC Automated0.00.0 per 100 WBCBON [facility] MEDICAL CENTERPlatelet distribution width (Bld) [Ratio]11.9 %11.8 - 14.4 %[facility] Platelet mean volume (Bld) [Entitic vol]9.9 fL8.1 - 13.5 fLCARILION ROANOKE MEMORIAL HOSPITALPlatelets (Bld) [#/Vol]162 10*3/uLBON [facility]OS[facility] TR[facility] MEDICAL CENTERRBC (Bld) [#/Vol]4.62 10*6/uL4.21 - 5.77 m/uLBON [facility] HOSPIT[facility] TRIP[facility]INT MEDICAL CENTERWBC (Bld) [#/Vol]9.2 10*3/uLBON [facility] UNIVERS[facility] HEALTH CENTERElectrolyte Panelon 69-94-9837Wfyxa gap [Moles/Vol]6 mmol/LLow9 - 17 mmol/LBON [facility] Chloride [Moles/Vol]101 mmol/L98 - 107 mmol/LBON [facility] MEDICAL CENTERCO2 [Moles/Vol]35 mmol/LHigh20 - 31 mmol/LBON [facility] MEDICAL CENTERInterpretation and review of laboratory resultsAbnormalBON [facility] MEDICAL CENTERPotassium [Moles/Vol]4.6 mmol/L3.7 - 5.3 mmol/LBON [facility] TR[facility] MEDICAL CENTERSodium [Moles/Vol] 142 mmol/L135 - 144 mmol/LBON [facility] TR[facility] MEDICAL CENTERElectrolyteson 27-58-8783Rmtek gap [Moles/Vol]6 mmol/LLow9-17[facility] HospitalComment on above:Performed By: #### JAZMINE, BUNCRT, LYTE #### [facility] [address] [place] [address] Tracing Lathe Set Up Operator: JAYDE Subramanianhloride [Moles/Vol]101 mmol/XWhobub43-487JunxnMercy Health Anderson HospitalComment on above:Performed By: #### JAZMINE, BUNCRT, LYTE #### [facility] [address] [place] [address] Tracing Lathe Set Up Operator: Jean-Pierre Gallardo MDCO2 [Moles/Vol]35 mmol/TTtlv58-08JbkvbMercy Health Anderson HospitalComment on above:Performed By: #### CBC, BUNCRT, LYTE #### [facility] [address] [place] [address] Tracing Lathe Set Up Operator: Jean-Pierre Gallardo MDPotassium [Moles/Vol]4.6 mmol/LNormal3.7-5.3 [facility] HospitalCommunson medical center on above:Performed By: #### CBC, BUNCRT, LYTE #### [facility] [address] [facility] [place] [address] Tracing Lathe Set Up Operator: SATISH Subramanianodium [Moles/Vol]142 mmol/KUirbvp735-695Mrdwj Forks Community HospitalComment on above:Performed By: #### CBC, BUNCRT, LYTE #### [facility] [address] [place] [address] Tracing Lathe Set Up Operator: Loretta Subramanian Panel Informationon 79-57-7019XOZ [facility] MEDICAL CENTERChronic pulmonary change without acute cardiopulmonary process. [facility] CONSOLIDATEDEXAMINATION: TWO XRAY VIEWS OF THE CHEST 04/23/2022 [...] unremarkable. The extrathoracic soft tissues are unremarkable. [facility] Frank Armijo MD - 04/23/2022 EXAMINATION: TWO XRAY VIEWS [...] Chronic pulmonary change without acute cardiopulmonary process. [facility] [employer] Phone: radiology Study observation (narrative)[employer] Phone: No Panel InformationOrdered By: Farnk Roque on 18-21-9175FRG [employer] Phone: XR CHEST (2 VW)on 70-84-9461GF CHEST (2 VW) EXAMINATION: TWO XRAY VIEWS [...] Signed by: Frank Roque MD 04/23/22 Final resultNormalMercy Forks Community HospitalQ - PSA (FREE AND TOTAL)on 02-02-2022 PSA, % FREE13 % (calc)Low>25[facility] SpecialistComment on above: Order Comment: [facility] Testing performed at: [facility], [facility], [address] [place] [address], [address] [place] [address], [phone], Sales Relationship Manager: Fermín Aj MD [facility] Collection Date/Time: [facility] Results Received Date/Time: [facility] Reported Date/Time: [id number] Comment: PSA(ng/mL) Free PSA(%) Estimated(x) Probability of Cancer(as%) 0-2.5 (*) Approx. 1 2.6-4.0(1) 0-27(2) 24(3) 4.1-10(4) 0-10 56 11-15 28 16-20 20 21-25 16 >or =26 8 >10(+) N/A >50 References:(1)Hangona et al.:Urology 60: 469-474 (2001) (2)Kevin et al.:J.Urol 168: 922-925 (2001) Free PSA(%) Sensitivity(%) Specificity(%) < or = 25 85 19 < or = 30 93 9 (3)Catalona et al.:PAVAN 277: 7811-5685 (1996) (4)Catalona et al.:PAVAN 279: [id number] (1997) (x)These estimates vary with age, ethnicity, [...] evidence of the presence or absence of disease.Performed By: #### [id number] #### [facility] Default [address] [place], [place] [address]ZCV, FREE0.9 ng/mLNormalNortdignity health arizona specialty hospitaln [facility] SpecialistComment on above:Order Comment: [facility] Testing performed at: [employer], [employer] [facility], [address] [place] [address], [address] [place] [address], [address] [place] [address], Sales Relationship Manager: Fermín Aj MD [facility] Collection Date/Time: [facility] Results Received Date/Time: [facility] Reported Date/Time: [id number] By: #### [id number] #### [facility] Default [address] [place], [place] [address]RZX, TOTAL7.0 ng/mLHigh< OR = 4.0Nonovant health medical park hospitaln [facility] VanderbiltDigital Media Director Comment on above:Order Comment: [facility] Testing performed at: [facility], [employer] [facility], [address] [place] [address], [address] [place] [address], [phone], Sales Relationship Manager: Fermín Aj MD [facility] Collection Date/Time: [facility] Results Received Date/Time: [facility] Reported Date/Time: [id number] By: #### [id number] #### [facility] Default [address] [place], [place] [address]Hmucrxrf Blood Count with Auto Diffon 89-93-4527Nkwlnjzvr (Bld) [#/Vol]0.07 10*3/uLNormal0.00-0.20NoCoshocton Regional [facility] Center SpecialistComment on above:Performed By: #### CBCAD, CMP, LIPD #### [facility] [address] [place], [place] [id number]/100 WBC (Bld)1.0 %NormalCherrington Hospital SpecialistComment on above:Performed By: #### CBCAD, CMP, LIPD #### [facility] [address] [place], [place] [id number] (Bld) [#/Vol]0.23 10*3/uLNormal0.02-0.50[facility] SpecialistComment on above:Performed By: #### CBCAD, CMP, LIPD #### [facility] [address], [place] [id number]/100 WBC (Bld)3.2 %[facility] SpecialistComment on above:Performed By: #### CBCAD, CMP, LIPD #### [facility] [address], [place] [id number] distribution width (RBC) [Ratio]11.9 %Normal 11.0-15.0[facility] SpecialistComment on above:Performed By: #### CBCAD, CMP, LIPD #### [facility] [address] [place], [place] [id number] (Bld) [Volume fraction]43.2 %Cniujf60.5-50.0 [facility] SpecialistComment on above:Performed By: #### CBCAD, CMP, LIPD #### [facility] [address] [place], [place] [id number] (Bld) [Mass/Vol]14.3 g/yTKabslo66.0-17.1[facility] SpecialistComment on above:Performed By: #### CBCAD, CMP, LIPD #### [facility] [address] [place], [place] [id number] (Bld) [#/Vol]2.0 10*3/uLNormal0.9-3.9NoCoshocton Regional Medical Center SpecialistComment on above:Performed By: #### CBCAD, CMP, LIPD #### [facility] [address], [place] [id number]/100 WBC (Bld)28.0 %NormalNoCoshocton Regional Medical Center SpecialistComment on above:Performed By: #### CBCAD, CMP, LIPD #### [facility] [address], [place] [id number] (RBC) [Entitic mass]31.0 tyWyiebq53.0-33.0NoCoshocton Regional Medical Center SpecialistComment on above:Performed By: #### CBCAD, CMP, LIPD #### [facility] [address], [place] [id number] (RBC) [Mass/Vol]33.1 g/zLDghrkd76.0-36.0NoCoshocton Regional Medical Center SpecialistComment on above:Performed By: #### CBCAD, CMP, LIPD #### [facility] [address], [place] [id number] (RBC) [Entitic vol]94 tBXxzedp72-819Mbojrvqe [facility] SpecialistComment on above:Performed By: #### CBCAD, CMP, LIPD #### [facility] [address], [place] [id number] (Bld) [#/Vol]0.7 10*3/uLNormal0.2-0.9NoCoshocton Regional Medical Center SpecialistComment on above:Performed By: #### CBCAD, CMP, LIPD #### [facility] [address], [place] [id number]/100 WBC (Bld)9.3 %NormalNoCoshocton Regional Medical Center SpecialistComment on above:Performed By: #### CBCAD, CMP, LIPD #### [facility] [address], [place] [id number] (Bld) [#/Vol]4.2 10*3/uLNormal1.5-7.8NoCoshocton Regional Medical Center SpecialistComment on above:Performed By: #### CBCAD, CMP, LIPD #### [facility] [address], [place] [id number]/100 WBC (Bld)58.4 %NormalNoCoshocton Regional Medical Center SpecialistComment on above:Performed By: #### CBCAD, CMP, LIPD #### [facility] [address], [place] [id number] mean volume (Bld) [Entitic vol]10.20 fLNormal 7.50-12.50NortWood County Hospital SpecialistComment on above:Performed By: #### CBCAD, CMP, LIPD #### [facility] [address], [place] [id number] (Bld) [#/Vol]151 10*3/gWMjjdbv605-273Mqymkjxi [facility] SpecialistComment on above:Performed By: #### CBCAD, CMP, LIPD #### [facility] [address], [place] [id number] (Bld) [#/Vol]4.61 10*6/uLNormal4.20-5.80NortWood County Hospital SpecialistComment on above:Performed By: #### CBCAD, CMP, LIPD #### [facility] [address] [place], [place] [id number]-XS72.6 dAXbandx96.0-50.0NoCoshocton Regional Medical Center Specialist Comment on above:Performed By: #### CBCAD, CMP, LIPD #### [facility] [address] [place], [place] [id number] (Bld) [#/Vol]7.2 10*3/uLNormal3.8-11.0NoCoshocton Regional Medical Center SpecialistComment on above:Performed By: #### CBCAD, CMP, LIPD #### [facility] [address] [place], [place] [id number] Metabolic Panelon 35-86-3522Fmdnudb [Mass/Vol] 4.5 g/dLNormal3.6-5.1NortherChildren's Hospital for Rehabilitation SpecialistComment on above:Performed By: #### CBCAD, CMP, LIPD #### [facility] [address] [place], [place] [id number]/Globulin [Mass ratio]2.0 {ratio}Normal1.0-2.5NoCoshocton Regional Medical Center SpecialistComment on above:Performed By: #### CBCAD, CMP, LIPD #### [facility] [address] [place], [place] [id number] [Catalytic activity/Vol]78 U/WFpwskl42-694Djrfagiz [facility] SpecialistComment on above:Performed By: #### CBCAD, CMP, LIPD #### [facility] [address] [place], [place] [id number] [Catalytic activity/Vol]17 U/LNormal9-46NortWood County Hospital SpecialistComment on above:Result Comment: 10/28/2021 Female reference range changed.Performed By: #### CBCAD, CMP, LIPD #### [facility] [address], [place] [id number] gap [Moles/Vol]15 mmol/AKdnwri63-04Etsukawh [facility] SpecialistComment on above:Result Comment: Effective 12/03/2019 reference range changed.Performed By: #### CBCAD, CMP, LIPD #### [facility] [address], [place] [id number] [Catalytic activity/Vol]20 U/OBiqaia51-61Rgmwwoer [facility] SpecialistComment on above:Performed By: #### CBCAD, CMP, LIPD #### [facility] [address], [place] [id number] [Mass/Vol]0.53 mg/dLNormal0.30-1.20NortWood County Hospital SpecialistComment on above:Performed By: #### CBCAD, CMP, LIPD #### [facility] [address] [place], [place] [id number]/CREA11 RatioNormal6-22NoCoshocton Regional [facility] Center Specialist Comment on above:Performed By: #### CBCAD, CMP, LIPD #### [facility] [address], [place] [id number] [Mass/Vol]10.0 mg/dLNormal8.6-10.2[facility] SpecialistComment on above:Performed By: #### RAEGAN, CMP, LIPD #### [facility] [address] [place], [place] [id number] [Moles/Vol]103 mmol/CEogpjx96-717Edasygbq [facility] SpecialistComment on above:Performed By: #### RAEGAN CMP, LIPD #### [facility] [address], [place] [id number] [Moles/Vol]30 mmol/VHzbeea90-01Oflmfynv [facility] SpecialistComment on above:Performed By: #### RAEGAN CMP, LIPD #### [facility] [address] [place], [place] [id number] [Mass/Vol]1.1 mg/dLNormal0.7-1.4Nortdignity health arizona specialty hospitaln [facility] SpecialistComment on above:Performed By: #### RAEGAN, CMP, LIPD #### [facility] [address] [place], [place] [id number] mL/min/1.67k0Thbduq>60Nortdignity health arizona specialty hospitaln [facility] SpecialistComment on above:Performed By: #### RAEGAN, CMP, LIPD #### [facility] [address] [place], [place] [id number] mL/min/1.03k3Jwdlgl>60Nortdignity health arizona specialty hospitaln [facility] SpecialistComment on above:Performed By: #### CBCNA, CMP, LIPD #### [facility] [address] [place], [place] [id number] (S) [Mass/Vol]2.3 g/dLNormal1.9-3.7Nortdignity health arizona specialty hospitaln [facility] SpecialistComment on above:Performed By: #### CBCNA, CMP, LIPD #### [facility] [address] [place], [place] [id number] [Mass/Vol]96 mg/qZJcbhmu18-30Pidexxse [facility] SpecialistComment on above:Result Comment: For FASTING Glucose --- ADA reference ranges: Normal 65-99 mg/dl Prediabetes 100-125 Diabetes >/= 126Performed By: #### CBCAD, CMP, LIPD #### [facility] [address] [place], [place] [id number] [Moles/Vol]4.3 mmol/LNormal3.5-5.5NoCoshocton Regional [facility] Center SpecialistComment on above:Performed By: #### CBCAD, CMP, LIPD #### [facility] [address], [place] [id number] [Mass/Vol]6.8 g/dLNormal6.1-8.1Northern [facility] SpecialistComment on above:Performed By: #### CBCAD, CMP, LIPD #### [facility] [address], [place] [id number] [Moles/Vol]143 mmol/TJdplgd131-443Pkgffwoy [facility] SpecialistComment on above:Performed By: #### CBCAD, CMP, LIPD #### [facility] [address], [place] [id number] nitrogen [Mass/Vol]12 mg/dLNormal7-25NoCoshocton [facility] SpecialistComment on above:Performed By: #### CBCAD, CMP, LIPD #### [facility] [address], [place] [id number] Panelon 28-57-0624Dltjoqutdjv [Mass/Vol]162 mg/dLNormal 125-200NoCoshocton [facility] SpecialistComment on above:Result Comment: Low risk < 200mg/dL Borderline risk 201-239 mg/dl High risk > or equal to 240Performed By: #### CBCAD, CMP, LIPD #### [facility] [address] [place], [place] [id number] in HDL [Mass/Vol]59 mg/dLNormal>40NoCoshocton [facility] Center SpecialistComment on above:Result Comment: High Cardiovascular Risk HDL <40 mg/dL Low Cardiovascular Risk HDL > or equal to 60 mg/dlPerformed By: #### CBCAD, CMP, LIPD #### [facility] [address], [place] [id number] in LDL [Mass/Vol]79 mg/dLNoMemorial [facility] System SpecialistComment on above:Result Comment: LDL ATP III CLASSIFICATION LDL less than 100 mg/dl Optimal LDL 100-129 mg/dl Near or above optimal LDL 130-159 Borderline high LDL 160-189 High LDL greater than 189 mg/dl Very HighPerformed By: #### CBCAD, CMP, LIPD #### [facility] [address], [place] [id number] in VLDL [Mass/Vol]24 mg/dLNormKettering Health [facility] SpecialistComment on above:Performed By: #### CBCAD, CMP, LIPD #### [facility] [address], [place] [id number].total/Cholesterol in HDL [Mass ratio]3 {ratio} NormalNortWood County Hospital SpecialistComment on above:Performed By: #### CBCAD, CMP, LIPD #### [facility] [address] [place], [place] [id number] [Mass/Vol]121 mg/vYDyypzx10-191Avamhmxn [facility] SpecialistComment on above:Result Comment: TRIG ATPIII CLASSIFICATIONS TRIG less than 150 mg/dl Normal TRIG 150-199 mg/dl Borderline High TRIG 200-500 mg/dl High TRIG greather than 500 mg/dl Very HighPerformed By: #### CBCAD, CMP, LIPD #### [facility] [address] [place], [place] [id number] SCREEN (MEDICARE)on 87-03-9243QHZW7.940 ng/mLHigh<4.000 [facility] SpecialistComment on above:Result Comment: PSA Test Method: ECLIA/Gilberto e 601Performed By: #### PSA #### [facility] [address] [place], [place] [id number] Vital Signs Date TimeVital SignValuePerforming HpavyiltzBheoqxer11-16-0686 10:30-0400Body qyhobw081.8 Juana Valencia Other No9DIAMOND Other 09-27-2022 10:30-0400Body mass index (BMI) [Ratio] 22.67 kg/o6RmpwlrdOrlando Valencia Other [facility] Other 09-27-2022 10:30-0400Body cesljs97.67 kgOrlando Valencia Other [facility] Other 09-27-2022 10:30-0400Diastolic blood hxrugmic43 mm[Hg] Orlando Valencia Other [facility] Other 09-27-2022 10:30-0400Systolic blood xafdettf858 mm[Hg] Orlando Valencia Other [facility] Other 06-06-2022 12:15-0400Body wasevzrkooz93.2 [degF] Mayda Castro MD Work Phone: [employer]06-06-2022 12:15-0400Diastolic blood lpielspc53 mm[Hg]Mayda Castro MD Work Phone: [employer]06-06-2022 12:15-0400Heart rate77 /minMayda Castro MD Work Phone: [employer]06-06-2022 12:15-0400 Respiratory rate15 /minMayda Castro MD Work Phone: [employer]06-06-2022 12:15-9714GiS5% (BldA) [Mass fraction]98 %Mayda Castro MD Work Phone: [employer]06-06-2022 12:15-0400Systolic blood riwbjmfr387 mm[Hg]Mayda Castro MD Work Phone: [employer]06-06-2022 10:06-0400Body .8 cmMayda Castro MD Work Phone: [facility]06-06-2022 10:06-0400Body mass index (BMI) [Ratio]22.96 kg/j2XkreerdMayda Castro MD Work Phone: [facility]06-06-2022 10:06-0400Body ymesjz75.58 kgMayda Castro MD Work Phone: [facility]05-27-2022 08:05-9415PrQ7% (BldA) [Mass fraction]95 %Sta [facility]05-27-2022 08:02-0400Body .8 cmSta [facility]05-27-2022 08:02-0400Body mass index (BMI) [Ratio]22.96 kg/m2Sta [address] [place], [place] [address]-27-2022 08:02-0400Body ietrdhtyszb85.7 [degF]Sta [facility]05-27-2022 08:02-0400Body rolirq16.[address] [place], [place] [address]105-27-2022 08:02-0400Diastolic blood kzgudeui44 mm[Hg][address]05-27-2022 08:02-0400Heart ddmt508 /minSta [facility]05-27-2022 08:02-0400Respiratory rate24 /min Sta [address] [place], [place] [address]105-27-2022 08:02-0400Systolic blood cjyqphey810 mm[Hg]Sta [address] [place] [address] Encounters Encounter DateEncounter TypeCare ProviderFacilityStart: 09-06-2025 End: 02-27-0839Lyelqihec Result EncounterGeneric External Data ProviderNOMS External Department UnsolicitedStart: 09-06-2025 End: 72-56-3645Xbfstrqor Result EncounterGeneric External Data ProviderNOMS External Department UnsolicitedStart: 08-01-2025 End: 44-94-7845wieaaafeyuJlqiyrl J BuckFacility: SURG CLINICStart: 07-23-2025 ambulatoryMayda CastroFacility: SURG CLINICStart: 07-16-2025 End: 75-44-5501mshqzckgoaVWVERY BERRYFacility: SURG CLINICStart: 05-13-2025 End: 88-27-4666Fhrajgujl Naida Mart MD Work Phone: [facility] CI FMStart: 02-07-2025 End: 37-16-0608Bimpav Rosangela Bowman PA Work Phone: [facility] CI FMStart: 02-07-2025 End: 33-65-8936Iaykwn Rosangela Bowman PA Work Phone: [facility] CI FMStart: 02-07-2025 End: 38-82-9357dtoeomyzssXAFJF M HEMMERNot AvailableStart: 06-04-2024 End: 96-58-2445hbqaohgwtaMSVUBR B BERRYNot AvailableStart: 05-23-2024 End: 06-35-1536mmnlzykqwnRDFCAF B BERRYNot AvailableStart: 04-04-2023 End: 59-31-6786zoqjysqkudVM DOCTOR MISCFacility:S6Ybgwz: 02-05-2023 End: 92-19-7615oansrfnxdgMU DOCTOR MISCFacility:N8Gizki: 08-24-2022 End: 25-83-9748nhtsvudoynCwcbjyn Ditty Other [facility] Other Start: 09-52-9647IJJI visit [facility] patientOrlando Valencia [facility] [place] GastroenterologyStart: 08-04-2022 End: 03-13-5392wcrszxsohsFB DOCTOR MISCFacility:P3Uzbcn: 07-26-2022 End: 80-51-0486cbvsurfvimTJ RADAMES Boothecility:J8Iojvq: 05-03-2022 End: 62-84-0542pusvumhqmbCIFCJYP BUCKMercy Astria Toppenish Hospitaltart: 05-03-2022 End: 96-61-6468Jxopadrmdn hospital visit by physicianMayda Castro MD Work Phone: stAZ ORComment on above:PSA elevationStart: 04-23-2022 End: 30-20-2465worbpinwuyJLIJDPO [facility] Centertart: 04-23-2022 End: 86-33-0805koyqsbootvCTBFBP [facility] HospitalStart: 04-23-2022 End: 38-64-6881Mqcphdrwyh hospital visit by physicianSta [facility] RadiologyComment on above:ArrivedStart: 04-23-2022 End: 92-97-6130Hcxmqkauyo hospital visit by physicianSta Pat [address] PRE-ADMIT TESTING Procedures DateProcedureProcedure DetailPerforming ClinicianStart: 52-27-6144DWGZI CULTURE 2Generic External Data ProviderStart: 39-95-1361SJSKD CULTURE 1Generic External Data ProviderStart: 97-61-1862GTW screeningDR DOCTOR MISCComment on above: Performed By: #### PSAD #### [facility] [address] [place] [address] Dr. Mireya TaborStart: 79-22-5423AMU screeningDR DOCTOR MISCComment on above: Performed By: #### PSAD #### [facility] [address] [place] [address] Dr. Mireya TaborStart: 94-65-2946XRC screeningDR DOCTOR MISCComment on above: Performed By: #### PSAD #### [facility] [address] [place] [address] Dr. Mireya TaborStart: 00-97-1456Cixulciakf exam chest 2 viewsNdysabel Rider MD Work Phone: Start: 15-55-1372Swxvggklwau panelNdysabel Rider MD Work Phone: Start: 94-24-9655Psw routine ecg w/least 12 lds w/i&r Fish Rider MD Work Phone: Start: 48-97-7554SmxkpzajrgdWkcjv Hemmer PA Work Phone: Plan of Treatment DateCare ActivityDetailAuthorStart: 85-33-4736Emfuisquv for malignant neoplasm of colonNOMS HealthcareStart: 38-96-9349Gigjohhkm vaccinationInfluenza Vaccine (#1)NOMS HealthcareStart: 02-07-2025 End: 28-64-8277Rqsdisf encounter xhhclbubx33/13/2025 1:00 PM EDT Office Visit [facility] [address] [place] [address] Irina Bowman PA [address] [place] [address] ArrivedNOMS CI FMComment on above:ArrivedStart: 64-44-6274Xlaudewad vaccinationInfluenza Vaccine (#1)NOM HealthcareStart: 77-28-8183Ravfv panelLipidsBON UNIV[facility]ITY H[facility]PITALS [facility] MEDICAL CENTERStart: 88-77-0962Hyrfhkalv vaccinationFlu vaccine (Season Ended)[facility]ENTERStart: 05-03-2022 End: 44-83-4895Niqxuwpoh to same day surgery ijmrjw5305/03/2022 Surgery IP Unit Mayda Castro MD [address] [place], [place] [address] FUSION PROSTATE BIOPSY WITH ULTRASOUND [facility] ON ORComment on above:FUSION PROSTATE BIOPSY WITH ULTRASOUND MRI WAS AT [facility] ON art: 05-03-2022 End: 25-24-1354Rnncgustae /06/2022 Anesthesia Event IP Unit Fish Rider MD [address] [place] [address] STAZ ORStart: 20-04-5305Ldraydnjkm hospital visit by xydlttimf31/06/2022 Hospital Encounter IP Unit Mayda Castro MD [address] [place] [address] STAZ ORStart: 05-03-2022 End: 25-21-3104Epvxuk prostate incisional any [facility] Hospitaltart: 05-95-5471Tvbimbcphiim 65+ years Vaccine (2 - PCV)Pneumococcal 65+ years Vaccine (2 - PCV)[facility]Start: 03-08-7937Skwvmlfbv aortic aneurysm screeningAAA screenBon Secours Memorial Regional Medical Centerart: 2002 Shingles vaccine (1 of 2)Shingles vaccine (1 of 2)[facility]ITALStart: 13-29-8790Yphybllms for malignant neoplasm of colonHOSPITAL CORPORATION OF AMERICA [employer] Start: 86-42-1348Liyqysms specific antigen measurementProstate Specific Antigen (PSA) Screening or MonitoringBon Secours Memorial Regional Medical Centerart: 1971 DTaP/Tdap/Td vaccine (1 - Tdap)DTaP/Tdap/Td vaccine (1 - Tdap)[facility]ITALStart: 39-83-5248Shfgpzbbl C screeningHepatitis C screenBon Secours Memorial Regional Medical Centerart: 49-77-9025Uttmdsuhwr ScreenDepression [facility]: 61-26-4795Tzeawi Wellness Visit (AWV)Annual Wellness Visit (AWV)[facility] Centerart: 59-81-4958Ymkzxydxw for malignant neoplasm of colon [facility] HealthcareBLOOD CULTURE 1BLOOD CULTURE 1 Lab Routine 09/06/2025 10:14 PM EDTNOMS HealthcareBLOOD CULTURE 2BLOOD CULTURE 2 Lab Routine 09/06/2025 11:10 PM EDTNOMS HealthcareContinuous pulse oximetryPulse oximetry, continuous Respiratory Care Routine Every 4hr until discontinued starting 05/04/2022[facility] [employer] [facility] Phone: Comment on above:Every 4hr until discontinued starting 05/04/2022urgical PathologySurgical Pathology Lab Routine PSA elevation Release Upon Ordering for 1 Occurrences starting 05/03/2022[facility]ING [facility] [employer] Phone: Comment on above:Release Upon Ordering for 1 Occurrences starting 05/03/2022 End: 14-31-4010APFUTNWI PATHOLOGY REPORTSURGICAL PATHOLOGY REPORT Lab Routine Once for 1 Occurrences starting 05/03/2022 until 2[employer] Work Phone: comment on above:Once for 1 Occurrences starting 05/03/2022 until 05/03/2022 Immunizations Immunization DateImmunizationNotesCare VrwkzszxAprlsvlh82-44-3938Vnulinxvw, High-dose Seasonal, Quadrivalent, Preservative FreeKaren Hemmer PA Work Phone: [facility] CenterKkcfbwozrj15-91-5341Yugtlupnbxot Conjugate PCV 20 Irina Hemmer PA Work Phone: [facility] CenterWrgrriyorf22-90-1602kyozaatox virus vaccine, unspecified formulationKaren Hemmer PA Work Phone: [facility] CenterEpzdvzoaix05-27-0239Jajxboumw, Seasonal, Quadrivalent, AdjuvantedKaren Hemmer PA Work Phone: noMer[facility] Hospital St. LouisSgxeqnkbdz68-10-6556Cffuxemgl, Seasonal, Quadrivalent, AdjuvantedKaren Hemmer PA Work Phone: noMercy Hospital St. LouisCbyjowfyyn57-69-2365GAKZT-50, Pfizer Purple top, DILUTE for use, 12+ yrs, 30mcg/0.3mL doseSta [employer] Work Phone: [phone]-73, Pfizer Purple top, DILUTE for use, 12+ yrs, 30mcg/0.3mL doseSta [employer] Work Phone: [phone]-98, Pfizer Purple top, DILUTE for use, 12+ yrs, 30mcg/0.3mL doseSta [employer] Work Phone: [phone]e, high dose seasonal, preservative-freeKaren Hemmer PA Work Phone: noMercy Hospital St. LouisLhmmvyssun01-79-3794Ogdinzvpe, High-dose Seasonal, Quadrivalent, Preservative FreeKaren Hemmer PA Work Phone: noMercy Hospital St. LouisYzdzjlrcpb60-69-8757toauix vaccine recombinant Irina Hemmer PA Work Phone: [facility] CenterWdmlxgtbjc68-34-2337qevovnzlxium polysaccharide vaccine, 23 valentKaren Hemmer PA Work Phone: [phone] [place], [place] [address]Hdcwtjbsvc80-54-7407zdlfbf vaccine recombinant Irina Hemmer PA Work Phone: [phone] [place], [place] [address]Peidamdwzx30-80-6675noqdjjhzu, high dose seasonal, preservative-freeKaren Hemmer PA Work Phone: [phone] [place], [place] [address]Vtyxrcsysl74-36-0854Usishesyv, High-dose Seasonal, Quadrivalent, Preservative FreeKaren Hemmer PA Work Phone: [phone] [place], [place] [address]Rdkaalpdoq44-79-0195ejyidzaknabw polysaccharide vaccine, 23 valentKaren Hemmer PA Work Phone: [phone] [place], [place] [address]Tzfwbxjjfu53-55-9630uujotevim, high dose seasonal, preservative-freeKaren Hemmer PA Work Phone: [phone] [place], [place] [address]Vueeoaiicr29-79-7840hwgrnonoh, injectable, quadrivalent, contains preservativeKaren Hemmer PA Work Phone: [facility] CenterRhhcynarsn66-46-8609orczuzxmx, injectable, quadrivalent, preservative freeKaren Hemmer PA Work Phone: [facility] CenterGxuilscwlp71-76-2536lotavbsru virus vaccine, unspecified formulationKaren Hemmer PA Work Phone: [facility] CenterSonwnqxnec75-77-1656tjqgmonhk virus vaccine, unspecified formulationKaren Hemmer PA Work Phone: [phone] [place], [place] [address]Bkcoczyhzo22-55-4154rpvjnlvec virus vaccine, unspecified formulationKaren Hemmer PA Work Phone: [phone] [place], [place] [address]Cpqednavsp48-43-4318jpwaiigjlmzq polysaccharide vaccine, 23 valentKaren Hemmer PA Work Phone: [phone] [place], [place] [address]Bmvkmgetnp63-32-2657wkdkoor toxoid, reduced diphtheria toxoid, and acellular pertussis vaccine, adsorbedKaren Hemmer PA Work Phone: [facility] Payers DatePayer CategoryPayerPolicy [id number] Health InsuranceAARP [id number] 2017[place] [address] [id number] [id number] [id number] Health Insurance [id number] [id number] 2.0.1.169073.3.57[id number] 2.0.1.980867.3.57[id number] 2..1.434831.3.579.2.61479-40-4573Aybljay1560000 2..1.134269.3.57[id number] 2.16.840.1.975588.3.57[id number] 2.16.840.1.659546.3.57[id number] 2.16.840.1.941656.3.57[id number] 2.16.840.1.786949.3.57[id number] 2.16.840.1.387821.3.57[id number] 2.16.840.1.786759.3.57[id number] 2.16.840.1.433437.3.57[id number] 2.16.840.1.091073.3.57[id number] 2.16.840.1.719237.3.579.2.718 Social History DateTypeDetailFacilityStart: 04-23-2022 End: 55-85-0252Jpgrojj smoking status NHISEx-[facility] [place] [employer] Phone: End: 01-75-0402Khhqdvt of tobacco useCurrent smokerTAUNTON STATE HOSPITALStopford Projects Phone: start: 04-23-2022 End: 01-06-7658Ylmttro use and exposureSmokeless tobacco non-userTAUNTON STATE HOSPITALStopford Projects Phone: start: 04-23-2022 End: 17-07-7939Cgkfruf intakeCurrent drinker of alcohol (finding)[facility] [employer] Phone: start: 04-23-2022 End: 71-23-3642Bhhimcu intakeBON [employer] Phone: start: 69-43-2793Jzq Assigned At BirthNot on [facility] Phone: start: 04-23-2022 End: 22-33-0026Hodgndrw to SARS-CoV-2 (event)Not sureC[facility] OF [facility], [place] [employer] Phone: start: 05-23-2024 End: 05-85-2312Jhe Assigned At [facility] Cl[facility] Other History of tobacco useCigarette SmokerMOUNTAINSTAR HEALTHCARE [facility] Start: 34-14-8877Qyqxakq Commentcaffeine 1-2 cups per dayOzarks Medical CenterStart: 33-37-6879McvXzzgOLFB Healthcare Clinical Notes 04-23-2022 to 07-31-2025 Note Date & YfliSckoFytxlnab65-27-8895 Note From: Drea Chopra (Urology Clinical Pool ([facility]_ID)) Sent: 07/31/2025 14:24:29 EDT Subject: General Message Caller Name: BRIAN QUEZADA; Caller Number: H , M Pt called stated had not received medication Orgovyx sent to [facility]. Spoke with Pharmacist Arlette, who stated she was waiting for insurance coverage ID # and pt should be receiving medication soon by delivery. Pt called and notified. [facility] CenterWczufeui36-99-4194 Note From: Drea Chopra Sent: 07/17/2025 08:14:01 EDT Subject: General Message Caller Name: BRIAN QUEZADA; Caller Number: H , M Refill request Orgovyx (Relugolix) 120mg tablet, 1 tablet orally once a day, #30, 11 refills. Sent to [facility] ([facility]). Needs to be seen in office in 3-4 months. Pt next appointment must kept for more refills per Dr. Castro.[facility] Medical CenterRqegflva72-69-8228 Telephone encounter Note* Telephone Encounter - Lolita Mccoy - 05/29/2025 1:52 PM EDT Lvm 3rd attempt to contact no contact letter sent [facility] CenterWttayyvktn10-74-2237 Miscellaneous Notes* Telephone Encounter - Lolita Nadine - 05/29/2025 1:52 PM EDT Lvm 3rd attempt to contact no contact letter sent * [facility] 05/20/2025 9:28 AM EDT Patient stated they will call back and schedule within the next couple of days * Telephone Encounter - Lolita Nadine - 05/13/2025 3:38 PM EDT Paitent is overdue for mawv - lvm trying to schedule appt documented in this encounterOzarks Medical CenterNzvwhfehfi27-78-6769 Telephone encounter Note* Telephone Encounter - Lolita Nadine - 05/20/2025 9:28 AM EDT Patient stated they will call back and schedule within the next couple of days [facility] CenterFvutjwdywj33-57-1968 Telephone encounter Note* Telephone Encounter - Lolita Nadine - 05/13/2025 3:38 PM EDT Paitent is overdue for mawv - lvm trying to schedule appt [facility] Fpgshsozrz08-74-3330 Evaluation note* Encounter Date Diagnosis Assessment Notes Treatment Notes Treatment Clinical Notes Jul, Abdominal distension (ICD-10 - R 14.0) Jul,onstipation (ICD-10 - K59.00)OBTAIN COLONOSCOPY FROM [facility] MAY USE LINZESS NEEDED F/U PRN [employer] Other 06-06-2022 Hospital Discharge instructions* Instructions* Mayda [...] Mayda Castro MD documented in this encounterBON [employer] Work Phone: 1(727) 470-542105-27-2022 History of Present illness Narrative* Erin Mclaughlin, FAITH - FISCAL SERVICES DIRECTOR - 04/23/2022 8:00 AM EDT PAT Progress Note Pt Name: Brian Quezada Birthdate: 1950 Date of evaluation: 04/23/2022 [x] Called to PAT. I spoke to the patient, Brian Quezada, a 71 y.o. male, who is scheduled for an upcoming FUSION PROSTATE BIOPSY WITH ULTRASOUND MRI WAS AT [facility] ON 03/12 by Mayda Castro MD [...] ms QTc Calculation (Bazett) 410 ms P Henderson 88 degrees R Henderson 42 degrees T Henderson 81 degrees CBC Collection Time: 04/23/22 9:11 [...] 04/23/2022 at 1:55 PM documented in this encounterC[facility] [place] [employer] Phone: evaluation note* Diagnosis PSA elevation Elevated prostate specific antigen (PSA) documented in this encounter [facility] [employer] Phone: History general Narrative - Reported* Type Description Date Medical History Hypercholesterolemia Medical HistoryHeart diseaseMedical HistoryAnxietyMedical HistoryDepression Medical HistoryGERD (gastroesophageal reflux disease)Medical HistoryCOPD (chronic obstructive pulmonary disease)Medical HistoryemphysemaMedical History lung chest noduleMedical Historyprostate cancerSurgical HistoryherniaSurgical Historycardiac stentSurgical Historywisdom teethHospitalization Historysee above [employer] Other Reason for visit Narrative* Auth/CertSpecialty Diagnoses / ProceduresReferred By ContactReferred To Contact Diagnoses Elevated PSA DX ELEVATED PSA Procedures [place] BIOPSY OF PROSTATE,INCISIONAL FUSION PROSTATE BIOPSY WITH ULTRASOUND MRI WAS AT [facility] ON 03/12 Mayda Castro MD [address] [place] [address] [facility] [employer] [address] [place] [address] Referral IDStatusReasonStart DateExpiration DateVisits RequestedVisits [id number] [employer] Work Phone: Summary Purpose Family History No [...] section and content) DATE CREATED AUTHOR 02/05/2022 [facility] Digital Media Director DATE CREATED AUTHOR AUTHOR'S ORGANIZ ATION 05/07/2022 [facility] DATE CREATED AUTHOR AUTHOR'S ORGANIZ ATION 04/08/2023 [facility] DATE CREATED AUTHOR AUTHOR'S ORGANIZ ATION 02/10/2025 [facility] Medical Specialists [facility] DATE CREATED AUTHOR AUTHOR'S ORGANIZ ATION 08/02/2025 [facility] Care Teams (unrecognized sec tion and content) Team MemberRelationshipSpecialtyStart DateEnd Date Radames Mart MD [address] [facility] [facility] [address] [place] [address] PCP - GeneralInternal Medicine04/23/22Team MemberRelationshipSpecialtyStart Date End Date Radames Mart MD [address] [facility] [facility] [address] [place] [address] PCP - GeneralInternal Medicine04/23/22Team MemberRelationshipSpecialtyStart Date End Date Radames Mart MD [address] [place] [address] PCP - GeneralArizona [facility] Hospitalnal [facility]04/23/22Team MemberRelationshipSpecialtyStart Date End Date Radames Mart MD [address] [place] [address] PCP - [facility]04/21/23 Radames Mart MD [address] [place] [address] PCP - GeneralM[facility]06/16/23Team MemberRelationshipSpecialtyStart Date End Date Radames Mart MD [address] [place] [address] PCP - [facility]04/21/23 Radames Mart MD [address] [place] [address] PCP - [facility]06/16/23Team MemberRelationshipSpecialtyStart Date End Date Radames Matr MD [address] [place] [address] PCP - [facility]04/21/23 Radames Mart MD [address] [place] [address] PCP - GeneralArizona State Hospitalnal Medicine06/16/23 Scheduled Active and Recently Administ ered Medications (unrecognized section and content) Medication Order//04/2022 ceFAZolin (ANCEF) 2000 mg in dextrose 5 % 50 mL IVPB (COMPLETED) 2,000 mg, IntraVENous, ONCE, 1 dose, On Tue05/03/22 at 1130, Antimicrobial Indications: Surgical Prophylaxis, Pre-op (day of surgery), STAT * 1120 (Given - Provider: FAITH Stanton CRNA) sodium chloride flush 0.9 % injection 5-40 mL 5-40 mL, IntraVENous, EVERY 12 HOURS SCHEDULED (2 times per day), First dose on Tue05/03/22 at 1030,Until Discontinued, For Line Patency: Peripheral IV = [...] = 20 mL/lumen, Pre-op (day of surgery) * 1030 (Due) * 2100 (Due) Medication Order// lactated ringers infusion IntraVENous, at 50 mL/hr, CONTINUOUS, Starting on Tue05/04/22 at 0000, Substitute normal saline for patients with renal insufficiency/failure, Pre-op (day of surgery) * 1035 (New Bag - Provider: Sofi Lemus RN) * 1115 (NoRateChange - Provider: FAITH Stanton CRNA) * 1133 (Rate/Dose Change - Provider: FAITH Stanton CRNA) * 1215 (Stopped - Provider: Drea Kyees, SALINA) Medication Order// 0.9 % sodium chloride infusion IntraVENous, at 5-250 mL/hr, PRN, if patient receiving piggyback infusions and maintenance fluids are not ordered OR KVO fluids to protect IV site / prevent frequent line interruptions/ long duration, Starting on Tue05/03/22 at 1009, For piggyback infusion, administer at same rate as piggyback for atotal of 25 mL. Enter 25 mL into [...] as the IV push. Flush volume is determinedby type of infusion therapy being given. For [...] BE BASED ON THE PRIMARY CLINICAL RECORDS. [employer]. provides no warranty or guarantee of the accuracy or completeness of information in this document.
--- OUTSIDE RECORDS SUMMARY | 2025-09-17 14:29 | XMS_ITS | Clinical Summary ---
Author Organization [facility] Address [address], [address] [place] [address] Care Team Providers Care Cool Roofing Installer Name Role Phone Radames Mart MD Primary Care Provider [phone] Allergies No known active allergies Medications MedicationSigDispense QuantityRefillsLast FilledStart DateEnd DateStatus clopidogrel (PLAVIX) 75 MG tablet Take 75 mg by mouth dailyActive ACLIDINIUM BROMIDE IN Inhale 1 puff into the lungs in the morning and at bedtimeActive ALBUTEROL IN Inhale 2 puffs into the lungs every 6 hours PRNActive fluticasone-salmeterol (ADVAIR) 250-50 MCG/ACT AEPB diskus inhaler Inhale 1 puff into the lungs every 12 hoursActive simvastatin (ZOCOR) 40 MG tablet Take 40 mg by mouth nightlyActive mirtazapine (REMERON JESSE-TAB) 30 MG disintegrating tablet Take 30 mg by mouth nightlyActive omeprazole (PRILOSEC) 20 MG delayed release capsule Take 20 mg by mouth dailyActive DOXAZOSIN MESYLATE PO 05/02/2022ctive mirtazapine (REMERON) 15 MG tablet 1 tabletActive aclidinium (TUDORZA PRESSAIR) 400 MCG/ACT AEPB inhaler INHALE 1 PUFF BY MOUTH 2 TIMES A DAYActive Immunizations ImmunizationAdministration DatesNext DueCOVID-19, Inactive, PFIZER PURPLE top, DILUTE for use, (age 12 y+)02/02/2022,01/29/2021,01/08/2021 Social History Tobacco UseTypesPacks/DayYears UsedDateSmoking Tobacco: FormerCigarettesQuit: 2007Smokeless Tobacco: NeverAlcohol UseStandard Drinks/WeekCommentsYes6 (1 standard drink = 0.6 oz pure alcohol)Sex and Gender InformationValueDate RecordedSex Assigned at BirthNot on fileLegal QkmLiko5501/07/2013 6:40 PM EST Gender IdentityNot on fileSexual OrientationNot on file Last Filed Vital Signs Vital SignReadingTime TakenCommentsBlood Orcdrkjh576/8906 12:15 PM EDT Hyhdy5141 12:15 PM TGAFhhjcslwand93.8 ??C (98.2 ??F)05/03/2022 12:15 PM EDTRespiratory Gmmv5971 12:15 PM EDTOxygen Gufsrfzkkt54%05/03/2022 12:15 PM EDTInhaled Oxygen Concentration--Pplfph88.6 kg (160 lb)05/03/2022 10:06 AM SLDDrsxfm541.8 cm (5' 10 )05/03/2022 10:06 AM EDTBody Mass Index22.9605/03/2022 10:06 AM EDT Plan of Treatment Health MaintenanceDue DateLast NgsdTpxhdzpmJuiokd20/25/1962Depression Screen 1964Hepatitis C orhqzm1407/22/1970DTaP/Tdap/Td vaccine (1 - Tdap)1971 Asgkgxcxzqi20/25/1997Colorectal Cancer Rjdjpk5307/22/1997FIT/FOBT: Average risk 1997Fecal-DNA (Cologuard): Average risk1997Sigmoidoscopy/CT /25/1997Shingles vaccine (1 of 2)2002AAA primef2807/22/2017 Pneumococcal 50+ years Vaccine (2 of 2 - PCV)Flu vaccine (#1)510/, 10/31/2019, 09/14/2016COVID-19 Vaccine (4 - 2024- season)503/06/2022, 01/29/2021, 01/08/2021espiratory Syncytial Virus (RSV) or age 60 yrs+ (1 - 1-dose 75+ series)2027Hepatitis A vaccineAged OutNo longer eligible based on patient's age to complete this topic Hepatitis B vaccineAged OutNo longer eligible based on patient's age to complete this topicHib vaccineAged OutNo longer eligible based on patient's age to complete this topicMeningococcal (ACWY) vaccineAged OutNo longer eligible based on patient's age to complete this topicMeningococcal B vaccineAged OutNo longer eligible based on patient's age to complete this topicPolio vaccineAged OutNo longer eligible based on patient's age to complete this topic Insurance Care Teams Team MemberRelationshipSpecialtyStart DateEnd Radames Mart MD [address] [facility] [address] [place] [address] PCP - GeneralInternal Medicine04/23/22
--- OUTSIDE RECORDS SUMMARY | 2025-09-17 14:30 | XMS_ITS | Clinical Summary ---
Author Organization [facility] Address [address] [place] [address] Care Team Providers Care Hospice Office Coordinator Name Role Phone Radames Mart MD Primary Care Provider [phone] Social History Tobacco UseTypesPacks/DayYears UsedDateSmoking Tobacco: Never AssessedSex and Gender InformationValueDate RecordedSex Assigned at BirthNot on fileLegal Sex Male05/26/2022 10:58 PM EDTGender IdentityNot on fileSexual OrientationNot on file Plan of Treatment DateTypeDepartmentCare Team (Latest Contact Info)Rbgiuotitfp76/04/2025 1:00 PM ESTOffice Visit [facility] [address] [place] [address] Sunil Mulligan MD [address] [place] [address] Health MaintenanceDue DateLast DoneCommentsCT Zkqyxdrnxfyi1952FIT-DNA 1950FIT1950FOBT1950 2015Jtyiraybfwosp1952Depression Screening 1964Adult Bwhjfwo06Fall Risk Uwdilnypf37/25/2017COVID-19 Vaccine ( season)5112/19/2021, 02/02/2022, 01/29/2021, Additional history existsInfluenza Vaccine (#1)503/06/2024, 10/19/2022, 02/12/2022, Additional history uxliiqWvglshwwzoz07/07/203204/2Colorectal Cancer Fthmcutfa17/07/2032Zoster YbulolnuUudpimmed25/29/2020, 01/28/2020 Pneumococcal Vaccine: 50+ XuuhqRfifcvuiu14/08/2024, 01/28/2020, 05/31/2019, Additional history existsHIB VaccinesAged OutNo longer eligible based on patient's age to complete this topicHPV VaccinesAged OutNo longer eligible based on patient's age to complete this topicIPV VaccinesAged OutNo longer eligible based on patient's age to complete this topicMeningococcal B VaccineAged OutNo longer eligible based on patient's age to complete this topicMeningococcal VaccineAged OutNo longer eligible based on patient's age to complete this topic Rotavirus VaccinesAged OutNo longer eligible based on patient's age to complete this topic Care Teams Team MemberRelationshipSpecialtyStart DateEnd Date Radames Mart MD [address] [address] PCP - GeneralInternal Duhxvvgw92/20/25
--- OUTSIDE RECORDS SUMMARY | 2025-09-17 14:31 | XMS_ITS | Patient Health Record ---
Author Organization [facility] [place] Address [address] [place] [address] Care Team Providers Care Bone Grinder Name Role Phone Radames Mart MD Primary Care Provider Josue Rincon [phone] Allergies Allergen (clinical drug ingredient) Drug/Non Drug Allergy documented on EMR Reaction Allergy Type Onset Date Status dust (uncoded)UnknownAllergyActive Results Component Value Reference Range Notes PSA, TOTAL (Not yet reviewed by provider) Interpretation: Performing Lab: Notes/Report: Reason For Referral No Information Medications Medication SIG (Take, Route, Frequency, Duration) Notes Start Date End Date Status Simvastatin ActiveCasodex 50 MG1 tablet Orally Once a day; Duration: 90 days08/12/2022 Not-TakingOmeprazoleActiveOrgovyx 120 MG1 tablet Orally Once a day; Duration: 30 day(s)07/12/2023ctiveMirtazapineActiveDoxazosin MesylateActiveFluticasone- Salmeterol 250-50 MCG/DOSE1 puff Inhalation Twice a day prnActiveAlbuterol Sulfate HFAActiveOrgovyx 120 MG1 tablet Orally Once a day; Duration: 30 days 06/19/2024ctiveClopidogrel BisulfateActiveOrgovyx 120 MG1 tablet - sample Orally Once a day; Duration: 30 day(s)* Lot # [id number], Expiration Date: Not-TakingOrgovyx 120 MG1 tablet Orally Once a day; Duration: 30 day(s)04/07/2023Not-Taking Social History Tobacco Use: Social History Observation Description Date Details (start date - stop date) Former Smoker NA - 11/28/2008 Tobacco Use/Smoking Question Answer Notes Patient is a former smoker When did you stop smoking?11/28/2008lcohol Screen (Audit-C) Question Answer Notes Did you have a drink containing alcohol in the p ast year? Yes How often did you have a drink containing alcohol in the past year?Weekly (3 points)Ktpeva4LtuvpccmtvsrgtPghabtsiLYFSH-S (Standard) Question Answer Notes Did you have a drink containing alcohol in the p ast year? Yes How often did you have six or more drinks on one occasion in the past year?Never (0 point)How many drinks did you have on a typical day when you were drinking in the past year?1 or 2 drinks (0 point)How often did you have a drink containing alcohol in the past year?2 to 3 times a week (3 points)Augozd1Ldookygiexsbbs Negative Problems Problem Type SNOMED Code ICD Code Onset Dates Problem Status W/U Status Risk Notes Problem Malignant tumor of prostate (686253091) P rostate cancer (C61) ActiveconfirmedProblemBenign prostatic hypertrophy with outflow obstruction (499906740)BPH loc w urin obs/LUTS (N40.1)Activeconfirmed Encounters Encounter Location Date Provider Diagnosis [address]rology [address] [place] [address] 06/10/2025 Josue Castro Elevated PSA R97.20 Assessments [...] End Date [place]IC[place] [address] [place] [address] [id number] Cecily Quezadaf - patient is the xygnzmf63 [address] [address] [place] [id number], Danny Self - patient is the mzgiupc49 2017 Medical (General) History Medical History History ICD Code Covid-16 December 2020 COPD- on oxygenDepressionhigh cholesterolHistory of DVTBPH loc w urin obs/LUTS N40.1Elevated PSAR97.20Prostate hpondzE90Syzqbbmg History Surgery Date(Month/Year) heart stents hernia surgeryFusion prostate biopsy
== END 2025-09-17 13:01 | DRG 190 ==
LOC: ER 22:27 → MS 09-07 04:36
PROVIDERS: Internal Medicine; Admitting Provider Internal Medicine; Emergency Provider Student in an Organized Health Care Education/Training Program; PCP Internal Medicine; Visit Provider Student in an Organized Health Care Education/Training Program
DX: J43.9 Emphysema, unspecified (principal); J18.9 Pneumonia, unspecified organism; J96.22 Acute and chronic respiratory failure with hypercapnia; J96.21 Acute and chronic respiratory failure with hypoxia; R64 Cachexia; E44.0 Moderate protein-calorie malnutrition; R44.0 Auditory hallucinations; F10.939 Alcohol use, unspecified with withdrawal, unspecified; I25.10 Atherosclerotic heart disease of native coronary artery without angina pectoris; Z95.5 Presence of coronary angioplasty implant and graft; Z99.81 Dependence on supplemental oxygen; Z79.02 Long term (current) use of antithrombotics/antiplatelets; Z87.891 Personal history of nicotine dependence; Z79.899 Other long term (current) drug therapy; R54 Age-related physical debility; M62.58 Muscle wasting and atrophy, not elsewhere classified, other site; R62.7 Adult failure to thrive; R00.0 Tachycardia, unspecified; I10 Essential (primary) hypertension; R44.1 Visual hallucinations; R25.1 Tremor, unspecified; R27.0 Ataxia, unspecified; I48.0 Paroxysmal atrial fibrillation; Z68.25 Body mass index [BMI] 25.0-25.9, adult
CPT/HCPCS: 36415; 36600; 70450; 70551; 71045; 71275; 80048; 80053; 80307; 81001; 82306; 82607; 82805; 83605; 83735; 83880; 84100; 84443; 84484; 85025; 85027; 87040; 87420; 87804; 87811; 93005; 93306; 94640; 94660; 94667; 94668; 94761; 94799; 96365; 96367; 96375; 97110; 97161; 97165; 97530; 97535; 99285; J0696; J1160; J1650; J2919; J3360; J3411; Q9967

== ENCOUNTER 2025-10-17 18:24 | Inpatient (IN) | payer MEDICARE, SELFPAY ==
--- OUTSIDE RECORDS SUMMARY | 2024-04-26 04:50 | XMS_ITS ---
Author Organization [facility] in [place] Address [address] [place] [address] Care Team Providers Care Vending Machine Mechanic Name Role Phone Barron CARRION, Radames Primary Care Provider Unavailab Josue Vazquez [phone] REASON FOR VISIT 6 month f/u w/ PSA prior Encounters Encounter Location Date Provider Diagnosis Urology [facility] [address] [address] 04/26/2024 Josue Castro Plan Of Treatment No Information Progress Notes * Tunde BARNARD RDOB:1950 (75 yo M)Acc No.[id number]:04/26/2024 UNLOCKED PROGRESS NOTE Patient:?Tunde BARNARD :?BUTCH AtkinsOB:1950???Age:73 Y ???Sex:MaleDate:4Phone:[phone]:[address] [place], [place] [phone]:Radames Mart MD Subjective: * Chief Complaints: * 1 . 6 month f/u w/ PSA prior. * Medical History: Objective: * Vitals: Assessment: Plan: * Treatment: * * Electronic signature of Josue Castro MD, [id number] on 10/17/2025 at 07:08 PM ESTSign off status: PendingVisit Status:?R/S (Rescheduled) * Provider: Olimpia Castro MD Date: 0 04/26/2024 Generated for Printing/Faxing/eTransmitting on:?10/17/2025 07:08 PM EST
--- OUTSIDE RECORDS SUMMARY | 2024-05-07 09:10 | XMS_ITS ---
Author Organization [facility] in [place] Address [address] [place] [address] Care Team Providers Care Dry Chain Operator Name Role Phone Barron CARRION, Radames Primary Care Provider Unavailab Josue Vazquez [phone] REASON FOR VISIT 6 month f/u w/ PSA prior Encounters Encounter Location Date Provider Diagnosis Urology [facility] [address] [address] 05/07/2024 Josue Castro Plan Of Treatment No Information Progress Notes * Tunde BARNARD RDOB:1950 (75 yo M)Acc No.[id number]:05/07/2024 UNLOCKED PROGRESS NOTE Patient:?Tunde BARNARD :?BUTCH AtkinsOB:1950???Age:73 Y ???Sex:MaleDate:4Phone:[phone]:[address] [place], [place] [phone]:Radames Mart MD Subjective: * Chief Complaints: * 1 . 6 month f/u w/ PSA prior. * Medical History: Objective: * Vitals: Assessment: Plan: * Treatment: * * Electronic signature of Josue Castro MD, [id number] on 10/17/2025 at 07:08 PM ESTSign off status: PendingVisit Status:?R/S (Rescheduled) * Provider: Olimpia Castro MD Date: 0 05/07/2024 Generated for Printing/Faxing/eTransmitting on:?10/17/2025 07:08 PM EST
--- OUTSIDE RECORDS SUMMARY | 2024-10-16 07:20 | XMS_ITS ---
Author Organization [facility] in [place] Address [address] [place] [address] Care Team Providers Care Service Person Name Role Phone Barron CARRION, Radames Primary Care Provider Unavailab Josue Vazquez [phone] REASON FOR VISIT 4 mo w/ psa Encounters Encounter Location Date Provider Diagnosis [facility] [address] [address] 10/16/2024 Josue Castro Plan Of Treatment No Information Progress Notes * Tunde BARNARD RDOB:1950 (75 yo M)Acc No.[id number]:10/16/2024 UNLOCKED PROGRESS NOTE Patient:?Tunde BARNARD :?Josue Castro MDDOB:1950???Age:74 Y ???Sex:MaleDate:4Phone:[phone]:[address] [place] [address]Pcp:Radames Mart MD Subjective: * Chief Complaints: * 1 . 4 mo w/ psa. * Medical History: Objective: * Vitals: Assessment: Plan: * Treatment: * * Electronic signature of Josue Castro MD, [id number] on 10/17/2025 at 07:10 PM ESTSign off status: PendingVisit Status:?R/S (Rescheduled) * Provider: Olimpia Castro MD Date: 12/16/2023 Generated for Printing/Faxing/eTransmitting on:?10/17/2025 07:10 PM EST
--- OUTSIDE RECORDS SUMMARY | 2024-11-13 08:30 | XMS_ITS ---
Author Organization The [facility] in [place] Address [address] [place] [address] Care Team Providers Care Legal Internship Name Role Phone Barron CARIRON, Radames Primary Care Provider Unavailab Josue Vazquez [phone] REASON FOR VISIT 4 mo w/ psa Encounters Encounter Location Date Provider Diagnosis U[facility] [address] [address] 11/13/2024 Josue Castro Plan Of Treatment No Information Progress Notes * Tunde BARNARD RDOB:1950 (75 yo M)Acc No.[id number]:11/13/2024 UNLOCKED PROGRESS NOTE Patient:?Tunde BARNARD :?Josue Castro MDDOB:1950???Age:74 Y ???Sex:MaleDate:4Phone:[phone]:[address] [place] [address]Pcp:Radames Mart MD Subjective: * Chief Complaints: * 1 . 4 mo w/ psa. * Medical History: Objective: * Vitals: Assessment: Plan: * Treatment: * * Electronic signature of Josue Castro MD, [id number] on 10/17/2025 at 07:08 PM ESTSign off status: PendingVisit Status:?R/S (Rescheduled) * Provider: Olimpia Castro MD Date: 1 01/14/2024 Generated for Printing/Faxing/eTransmitting on:?10/17/2025 07:08 PM EST
--- OUTSIDE RECORDS SUMMARY | 2025-01-03 09:10 | XMS_ITS ---
Author Organization The [facility] in [place] Address [address] [place] [address] Care Team Providers Care Scoop Driver Name Role Phone Barron CARRION, Radames Primary Care Provider Unavailab Josue Vazquez [facility] [phone] REASON FOR VISIT 4 mo w/ psa - NOMS Encounters Encounter Location Date Provider Diagnosis [facility] [address] [address] 01/03/2025 Josue Castro Plan Of Treatment No Information Progress Notes * Tunde BARNARD RDOB:1950 (75 yo M)Acc No.[id number]:01/03/2025 UNLOCKED PROGRESS NOTE Patient:?Tunde BARNARD :?BUTCH AtkinsOB:1950???Age:74 Y ???Sex:MaleDate:01/03/2025Phone:[phone]:[address] [place], [place] [address]Pcp:Radames Mart MD Subjective: * Chief Complaints: * 1 . 4 mo w/ psa - NOMS. * Medical History: Objective: * Vitals: Assessment: Plan: * Treatment: * * Electronic signature of Josue Castro MD, [id number] on 10/17/2025 at 07:09 PM ESTSign off status: PendingVisit Status:?R/S (Rescheduled) * Provider: Olimpia Castro MD Date: 0 01/03/2025 Generated for Printing/Fakenneyg/eTnakulsmitting on:?10/17/2025 07:09 PM EST
--- OUTSIDE RECORDS SUMMARY | 2025-02-12 07:30 | XMS_ITS ---
Author Organization The [facility] in [place] Address [address] [place] [address] Care Team Providers Care Combatant Diver Officer Name Role Phone Barron CARRION, Radames Primary Care Provider Unavailab Josue Vazquez [phone] REASON FOR VISIT 4 mo w/ psa - NOMS, verbally reminded PT of PSA 3/13 Encounters Encounter Location Date Provider Diagnosis Urology [facility] [place] [address] [place] [address] 02/12/2025 Josue Castro Plan Of Treatment No Information Progress Notes * Tunde BARNARD RDOB:1950 (75 yo M)Acc No.[id number]:02/12/2025 UNLOCKED PROGRESS NOTE Patient:?Tunde BARNARD :?Josue Castro, MDDOB:1950???Age:74 Y ???Sex:MaleDate:02/12/2025Phone:[phone]:[address] [place], [place] [phone]:Radames Mart MD Subjective: * Chief Complaints: * 1 . 4 mo w/ psa - NOMS. 2. verbally reminded PT of PSA 3/13. * Medical History: Objective: * Vitals: Assessment: Plan: * Treatment: * * Electronic signature of Josue Castro MD, [id number] on 10/17/2025 at 07:09 PM ESTSign off status: PendingVisit Status:?R/S (Rescheduled) * Provider: Olimpia Castro MD Date: 0 02/12/2025 Generated for Printing/Faxing/eTransmitting on:?10/17/2025 07:09 PM EST
--- OUTSIDE RECORDS SUMMARY | 2025-03-28 09:10 | XMS_ITS ---
Author Organization The [facility] in [place] Address [address] [place] [address] Care Team Providers Care Campaign Assistant Name Role Phone Barron CARRION, Radames Primary Care Provider Unavailab Josue Vazquez [phone] REASON FOR VISIT 4 mo w/ psa - NOMS, verbally reminded PT of PSA 3/13 Encounters Encounter Location Date Provider Diagnosis Urology [facility] [place] [address] [place] [address] 03/28/2025 Josue Castro Plan Of Treatment No Information Progress Notes * Tunde BARNARD RDOB:1950 (75 yo M)Acc No.[id number]:03/28/2025 UNLOCKED PROGRESS NOTE Patient:?Tunde BARNARD :?Josue Castro, MDDOB:1950???Age:74 Y ???Sex:MaleDate:03/28/2025Phone:[phone]:[address] [place], [place] [address]Pcp:Radames Mart MD Subjective: * Chief Complaints: * 1 . 4 mo w/ psa - NOMS. 2. verbally reminded PT of PSA 3/13. * Medical History: Objective: * Vitals: Assessment: Plan: * Treatment: * * Electronic signature of Josue Castro MD, [id number] on 10/17/2025 at 07:08 PM ESTSign off status: PendingVisit Status:?R/S (Rescheduled) * Provider: Olimpia Castro MD Date: 0 03/28/2025 Generated for Printing/Faxing/eTransmitting on:?10/17/2025 07:08 PM EST
--- OUTSIDE RECORDS SUMMARY | 2025-05-07 08:10 | XMS_ITS ---
Author Organization The [facility] in [place] Address [address] [place] [address] Care Team Providers Care Wireless Engineer Name Role Phone Barron CARRION, Radames Primary Care Provider Unavailab Josue Vazquez [phone] REASON FOR VISIT 4 mo w/ psa - NOMS, verbally reminded PT of PSA 3/13 Encounters Encounter Location Date Provider Diagnosis [facility] [place] [address] [place] [address] 05/07/2025 Josue Castro Plan Of Treatment No Information Progress Notes * Tunde BARNARD RDOB:1950 (75 yo M)Acc No.[id number]:05/07/2025 UNLOCKED PROGRESS NOTE Patient:?Tunde BARNARD :?Josue Castro, MDDOB:1950???Age:74 Y ???Sex:MaleDate:05/07/2025Phone:[phone]:[address] [place], [place] [address]Pcp:Radames Mart MD Subjective: * Chief Complaints: * 1 . 4 mo w/ psa - NOMS. 2. verbally reminded PT of PSA 3/13. * Medical History: Objective: * Vitals: Assessment: Plan: * Treatment: * * Electronic signature of Josue Castro MD, [id number] on 10/17/2025 at 07:09 PM ESTSign off status: PendingVisit Status:?R/S (Rescheduled) * Provider: Olimpia Castro MD Date: 0 05/07/2025 Generated for Printing/Faxing/eTransmitting on:?10/17/2025 07:09 PM EST
--- OUTSIDE RECORDS SUMMARY | 2025-07-16 08:20 | XMS_ITS ---
Author Organization The [facility] in [place] Address [address] [place] [address] Care Team Providers Care Mill Dresser Name Role Phone Barron CARRION, Radames Primary Care Provider Unavailab Josue Vazquez [phone] REASON FOR VISIT 4 mo w/ psa - NOMS, verbally reminded PT of PSA 3/13 Encounters Encounter Location Date Provider Diagnosis Urology [facility] [place] [address] [place] [address] 07/16/2025 Josue Castro Plan Of Treatment No Information Progress Notes * Tunde BARNARD RDOB:1950 (75 yo M)Acc No.[id number]:07/16/2025 UNLOCKED PROGRESS NOTE Patient:?Tunde BARNARD :?Josue Castro, MDDOB:1950???Age:74 Y ???Sex:MaleDate:07/16/2025Phone:[phone]:[address] [place], [place] [address]Pcp:Radames Mart MD Subjective: * Chief Complaints: * 1 . 4 mo w/ psa - NOMS. 2. verbally reminded PT of PSA 3/13. * Medical History: Objective: * Vitals: Assessment: Plan: * Treatment: * * Electronic signature of Josue Castro MD, [id number] on 10/17/2025 at 07:09 PM ESTSign off status: PendingVisit Status:?CANC (Cancelled) * Provider: Olimpia Castro MD Date: 0 07/16/2025 Generated for Printing/Faxing/eTransmitting on:?10/17/2025 07:09 PM EST
[2025-10-17] VITALS (16 sets, daily range): BP systolic 98–128; BP diastolic 56–69; PULSE 83–138; RESP 14; TEMP 37.2–37.6; O2SAT 84–96; BMI 26.6; BMI 26.5
--- NOTE | 2025-10-17 18:29 | ECG_ITS ---
[facility] Test Date: 2025-10-17 Pat Name: BRINA BARNARD Department: Room: - Gender: Male Wireless Telegrapher: : 1950 Requested By: 1030 Order Number: [id number] Reading MD: JUSTIN NASH M.D. Measurements Intervals [place] Rate: 81 P: 106 [place]: 176 QRS: 32 QRSD: 80 T: 46 QT: 360 QTc: 398 Interpretive Statements 1100 Sinus rhythm 1570 with occasional ventricular premature complexes 9140 abnormal rhythm ECG Compared to ECG 09/12/2025 00:24:33 Ventricular premature complex(es) now present Electronically Signed On 10-17-2025 19:26:12 EST by JUSTIN NASH M.D.
--- NOTE | 2025-10-17 18:35 | ED.GENADUL1 ---
HPI HPI - General Adult General Chief complaint: Shortness of Breath/Dyspnea Stated complaint: SOB Time Seen by Provider: 10/17/25 18:29 Source: EMR Mode of arrival: ambulance History of Present Illness HPI narrative: Patient is a 75-year-old male with a PMH of COPD, CAD, and A-fib that presents to the emergency department via EMS with complaints of shortness of breath all day. Patient baseline wears 3 L oxygen and his states that she had been turning his O2 up all day. EMS reports on their arrival he was on 5 L and was in the 80s O2 saturation. They did place him on CPAP en route and gave him albuterol, a DuoNeb, and he was given 1mg Versed for anxiety. Related Data Home Medications ?Medication ?Instructions ?Recorded ?Confirmed albuterol sulfate 2.5 mg/3 mL 2.5 mg inhalation Q6H PRN 09/06/25 10/17/25 (0.083 %) solution for nebulization shortness of breath or wheezing budesonide 160 mcg-glycopyr 9 2 inh inhalation BID 09/06/25 10/17/25 mcg-formot 4.8 mcg/actuation HFA inhaler (Breztri Aerosphere) ezetimibe 10 mg-simvastatin 40 mg 1 tab PO DAILY 09/06/25 10/17/25 tablet (Vytorin) ipratropium 0.5 mg-albuterol 3 mg 3 ml inhalation Q4H PRN shortness 09/06/25 09/06/25 (2.5 mg base)/3 mL nebulization of breath or wheezing soln linaclotide 145 mcg capsule 145 mcg PO DAILY 09/06/25 09/06/25 mirtazapine 30 mg tablet 30 mg PO HS 09/06/25 10/17/25 omeprazole 20 mg capsule,delayed 20 mg PO .unknown 09/06/25 10/17/25 release Previous Rx's ?Medication ?Instructions ?Recorded acetazolamide 250 mg tablet 250 mg PO DAILY 3 days #3 tabs 09/17/25 alprazolam 0.25 mg tablet 0.25 mg PO QHS PRN anxiety 3 days 09/17/25 #3 tabs alprazolam 0.25 mg tablet (Xanax) 0.25 mg PO .qhs prn #3 tabs 09/17/25 apixaban 5 mg tablet (Eliquis) 5 mg PO BID 30 days #60 tabs 09/17/25 atorvastatin 20 mg tablet 20 mg PO DAILY 30 days #30 tabs 09/17/25 budesonide 0.5 mg/2 mL suspension 0.5 mg (2 mL) inhalation 09/17/25 for nebulization RTBID@1100,2300 30 days #60 mL diltiazem HCl 60 mg tablet 30 mg (1/2 x 60 mg) PO QID 30 days 09/17/25 #60 tabs guaifenesin 600 mg tablet, 1,200 mg (2 x 600 mg) PO BID 10 09/17/25 extended release 12 hr (Mucinex) days #40 tabs prednisone 10 mg tablets in a dose See Rx Instructions .Route 09/17/25 pack .COMPLEX #39 ea sennosides 8.6 mg-docusate sodium 1 tab PO QD PRN Constipation 10 09/17/25 50 mg tablet days #10 tabs Allergies Allergy/AdvReac Type Severity Reaction Status Date / Time No Known Drug Allergies Allergy Verified 10/17/25 18:32 Opioid HPI Opioid Management Most Recent Opioid Data: Last Pain Scale 0 09/17/25, 12:21 Last Pain Intensity 0 09/16/25, 10:15 Last ORT Total Score 0 09/07/25, 04:32 Last ORT Risk Category Low Risk 09/07/25, 04:32 Ur Phencyclidine Scrn, (NEGATIVE) Negative 09/07/25, 23:30 Review of Systems ROS Status of ROS 10 or more systems reviewed and unremarkable except as noted in history and below [facility] Medical History (Updated 10/17/25 @ 21:41 by MICAH Ashley) History of bilevel positive airway pressure (BiPAP) therapy ?Z92.89 - Personal history of other medical treatment (ICD-10) Hallucination, visual ?R44.1 - Visual hallucinations (ICD-10) Hallucination ?R44.3 - Hallucinations, unspecified (ICD-10) New onset a-fib ?I48.91 - Unspecified atrial fibrillation (ICD-10) Cancer ?C80.1 - Malignant (primary) neoplasm, unspecified (ICD-10) Family History (Updated 09/07/25 @ 06:06 by Koko Garza RN) Son No problems noted. Sister Cancer Sister Cancer Stroke Mother Myocardial infarct Father Myocardial infarct Social History (Updated 09/07/25 @ 06:07 by Koko Garza RN) Within the past year, how often did you have a drink containing alcohol: never Within the past year, how often did you have six or more drinks on one occasion: never Score interpretation: A score less than 4 is consistent with normal alcohol consumption. Smoking status: Former smoker Non-prescribed substance use: denies use Previous occupational history: [employer] Known occupational exposures/hazards: Yes Highest level of school completed/degree received: GED or equivalent Are you now , , , , never or living with a partner: Little interest or pleasure in doing things: not at all Feeling down, depressed, or hopeless: not at all Exam Narrative Exam Narrative: General: Moderate respiratory distress, age-appropriate Skin: Warm, dry, no pallor. No rash. Head: Normocephalic, atraumatic. Neck: Supple, non-tender. Eye: Pupils are equal, round and EOMI. No scleral icterus. Ears, Nose, Mouth, and Throat: No nasal mucosal hypertrophy. Oral mucosa is moist, no posterior oropharynx erythema, uvula is mid-line Cardiovascular: Regular Rate and Rhythm without murmur, gallop or rub. Respiratory: Accessory muscle use or respiratory distress. Lungs with breath sounds diminished bilaterally with inspiratory/expiratory wheezing and crackles at the bilateral posterior bases. Chest Wall: no tenderness Back: No midline thoracic or lumbar vertebral tenderness. Musculoskeletal: Full ROM of all extremities, no calf or popliteal tenderness GI: Abdomen is soft, non-distended, non tender to palpation. No masses appreciated. No rebound, guarding, or rigidity noted. Neurological: A&O x4. No cranial nerve dysfunction observed. No truncal ataxia. Moves all extremities. Sensation intact. Psychiatric: Cooperative and interactive. Normal mood and affect. Constitutional Vital Signs, click to edit/add: Last Vital Signs Temp 98.9 F 10/17/25 18:27 Pulse 86 10/17/25 21:15 Resp 22 H 10/17/25 21:15 BP 101/68 10/17/25 18:27 Pulse Ox 91 L 10/17/25 21:15 O2 Del Method Vapotherm 10/17/25 21:15 O2 Flow Rate 40 10/17/25 21:15 FiO2 50 10/17/25 21:15 Course Vital Signs Vital signs: Vital Signs Pulse Rate 93 H 10/17/25 18:24 Pulse Oximetry 94 L 10/17/25 18:24 Fraction of Inspired Oxygen 40 10/17/25 18:24 Temperature 98.9 F 10/17/25 18:27 Pulse Rate 86 10/17/25 21:15 Respiratory Rate 22 H 10/17/25 21:15 Blood Pressure 101/68 10/17/25 18:27 Pulse Oximetry 91 L 10/17/25 21:15 Oxygen Delivery Method Vapotherm 10/17/25 21:15 Oxygen Delivery Flow Rate 40 10/17/25 21:15 Fraction of Inspired Oxygen 50 10/17/25 21:15 Medical Decision Making MDM Narrative Medical decision making narrative: 75-year-old male with history of COPD, CAD, and A-fib presented with acute shortness of breath and hypoxia below baseline. Initial evaluation showed moderate respiratory distress with ABG consistent with acute on chronic hypercapnic respiratory failure (pH 7.30, pCO2 72.3). CXR demonstrated mild pulmonary congestion and BNP was mildly elevated, suggesting a possible mild CHF component. Troponins were negative ?2 and EKG showed no ischemic changes. Patient was treated with BiPAP, albuterol, DuoNeb, IV Solu-Medrol, magnesium, and IV Lasix with gradual clinical improvement. Repeat ABG after 2 hours on BiPAP showed improving ventilation with a decrease in pCO2 to 64.8. Patient was then transitioned to high-flow nasal cannula and maintained oxygen saturations in the mid-90s without increased work of breathing. COVID and influenza testing were negative. Given ongoing need for respiratory support and risk of decompensation, I discussed the case with the hospitalist,Dr Gomez, who agrees with admission to the stepdown unit. Patient and were updated on results and plan and are agreeable. Patient remained stable, vitals and mentation, while in the emergency department and was transferred to the floor for further treatment. Differential Diagnosis Differential Diagnosis: COPD exacerbation, CHF, ACS, PNA, A-fib with RVR Lab Data Lab results reviewed: Yes I reviewed the patient's lab results Labs: Lab Results 10/17/25 10/17/25 10/17/25 Range/Units 18:30 18:37 18:45 WBC 6.5 (4.0-11.0) 10^3/uL RBC 3.55 L (4.70-6.10) 10^6/uL Hgb 10.4 L (14.0-18.0) g/dL Hct 35.4 L (42.0-54.0) % MCV 99.7 H (80.0-94.0) fL MCH 29.3 (25.9-34.0) pg MCHC 29.4 L (29.9-35.2) g/dL RDW 13.7 (11.0-15.0) % Plt Count 269 (150-450) 10^3/uL MPV 9.9 (9.5-13.5) fL Neut % (Auto) 60.0 (43.0-75.0) % Lymph % (Auto) 26.2 (20.5-60.0) % O'Brien % (Auto) 10.0 (1.7-12.0) % Eos % (Auto) 2.1 (0.9-7.0) % Baso % (Auto) 0.8 (0.2-2.0) % Neut # (Auto) 3.9 (1.4-6.5) 10^3/uL Lymph # (Auto) 1.7 (1.2-3.8) 10^3/uL O'Brien # (Auto) 0.7 (0.3-0.8) 10^3/uL Eos # (Auto) 0.1 (0.0-0.7) 10^3/uL Baso # (Auto) 0.1 (0.0-0.1) 10^3/uL Abs Immat Gran (auto) 0.06 H (0.00-0.03) 10^3/uL Imm/Tot Granulo (auto) 0.9 H (0.0-0.5) % Puncture Site Rr ABG pH 7.340 L (7.350-7.450) ABG pCO2 72.3 H* (35.0-45.0) mmHg ABG pO2 65.6 L (80.0-100.0) mmHg ABG HCO3 38.9 H (22.0-26.0) mmol/L ABG O2 Saturation 93.0 % ABG Base Excess 13.2 H (-2.0-2.0) mmol/L Hemant Test Positive (POSITIVE) FiO2 40 % BiPAP 12/6 Sodium 148 H (136-145) mmol/L Potassium 4.3 (3.5-5.1) mmol/L Chloride 106 (98-107) mmol/L Carbon Dioxide 42.7 H (21.0-32.0) mmol/L Anion Gap 3.6 BUN 17.0 (7.0-18.0) mg/dL Creatinine 0.98 (0.70-1.30) mg/dL Est GFR ( Amer) >60 (>=60 mL/min/1.73m^2) Est GFR (Non-Af Amer) >60 (>=60 mL/min/1.73m^2) BUN/Creatinine Ratio 17.3 Glucose 92 (74-106) mg/dL Lactate 0.8 (0.4-2.0) mmol/L Calcium 8.6 (8.5-10.1) mg/dL Troponin I High Sens 13.7 (4.0-76.1) pg/mL NT-Pro-B Natriuret Pep 550.0 (<=900.0) pg/mL Influenza Type A Ag Negative Influenza Type B Ag Negative SARS-CoV-2 Ag (CV2AG) Negative (NEGATIVE) 10/17/25 10/17/25 Range/Units 20:38 20:43 WBC (4.0-11.0) 10^3/uL RBC (4.70-6.10) 10^6/uL Hgb (14.0-18.0) g/dL Hct (42.0-54.0) % MCV (80.0-94.0) fL MCH (25.9-34.0) pg MCHC (29.9-35.2) g/dL RDW (11.0-15.0) % Plt Count (150-450) 10^3/uL MPV (9.5-13.5) fL Neut % (Auto) (43.0-75.0) % Lymph % (Auto) (20.5-60.0) % O'Brien % (Auto) (1.7-12.0) % Eos % (Auto) (0.9-7.0) % Baso % (Auto) (0.2-2.0) % Neut # (Auto) (1.4-6.5) 10^3/uL Lymph # (Auto) (1.2-3.8) 10^3/uL O'Brien # (Auto) (0.3-0.8) 10^3/uL Eos # (Auto) (0.0-0.7) 10^3/uL Baso # (Auto) (0.0-0.1) 10^3/uL Abs Immat Gran (auto) (0.00-0.03) 10^3/uL Imm/Tot Granulo (auto) (0.0-0.5) % Puncture Site Rr ABG pH 7.385 (7.350-7.450) ABG pCO2 64.8 H* (35.0-45.0) mmHg ABG pO2 62.7 L (80.0-100.0) mmHg ABG HCO3 38.7 H (22.0-26.0) mmol/L ABG O2 Saturation 93.2 % ABG Base Excess 13.7 H (-2.0-2.0) mmol/L Hemant Test Positive (POSITIVE) FiO2 40 % BiPAP 16/8 Sodium (136-145) mmol/L Potassium (3.5-5.1) mmol/L Chloride (98-107) mmol/L Carbon Dioxide (21.0-32.0) mmol/L Anion Gap BUN (7.0-18.0) mg/dL Creatinine (0.70-1.30) mg/dL Est GFR ( Amer) (>=60 mL/min/1.73m^2) Est GFR (Non-Af Amer) (>=60 mL/min/1.73m^2) BUN/Creatinine Ratio Glucose (74-106) mg/dL Lactate (0.4-2.0) mmol/L Calcium (8.5-10.1) mg/dL Troponin I High Sens 14.9 (4.0-76.1) pg/mL NT-Pro-B Natriuret Pep (<=900.0) pg/mL Influenza Type A Ag Influenza Type B Ag SARS-CoV-2 Ag (CV2AG) (NEGATIVE) Imaging Data Chest x-ray: Attestation: I have reviewed the pertinent imaging results. Radiologist's impression: ITS Impressions Chest X-Ray 11/20/25 19:17 IMPRESSION: Mild failure. Impression dictated by: Baldev Perez M.D. 10/17/2025 7:44 PM Dictation Location: [employer] Electronically authenticated by: [id number] Y Date: 10/17/2025 19:44 ECG Data Attestation: ?I have reviewed the pertinent ECG results. Discharge Plan Discharge Chief Complaint: Shortness of Breath/Dyspnea Clinical Impression: Hypoxic respiratory failure, COPD exacerbation Patient Disposition: Admitted As Inpatient Time of Disposition Decision: 21:41 Condition: Fair
[2025-10-17 18:39] LABS: Hematocrit 35.4 % (42.0-54.0); Hemoglobin 10.4 g/dL (14.0-18.0); Immature Granulocytes Abs Auto 0.06 10^3/uL (0.00-0.03); Immature Granulocytes Pct Auto 0.9 % (0.0-0.5); Lymphocytes Absolute Auto 1.7 10^3/uL (1.2-3.8); Mean Corpuscular HGB Conc 29.4 g/dL (29.9-35.2); Mean Corpuscular Hemoglobin 29.3 pg (25.9-34.0); Mean Corpuscular Volume 99.7 fL (80.0-94.0); Platelet Count 269 10^3/uL (150-450); Red Blood Count 3.55 10^6/uL (4.70-6.10); White Blood Count 6.5 10^3/uL (4.0-11.0)
[2025-10-17] MEDS: ALBUTEROL SULFATE 2.5 MG/3 ML VIAL NEB IH (18:42)
[2025-10-17] MEDS: METHYLPREDNISOLONE SOD SUCC PF 125 MG/2 ML VIAL IVP (18:43)
[2025-10-17 18:46] LABS: PO2 ABG 65.6 mmHg (80.0-100.0)
[2025-10-17 18:47] LABS: Allen Test POSITIVE (POSITIVE); HCO3 ABG 38.9 mmol/L (22.0-26.0); O2 Mode BIPAP; Oxygen Saturation ABG 93.0 %; Puncture Site RR; Rate 14
[2025-10-17 18:48] LABS: ABG PCO2 72.3 mmHg (35.0-45.0)
[2025-10-17 18:58] LABS: Lactate/Lactic Acid 0.8 mmol/L (0.4-2.0)
[2025-10-17 18:59] LABS: Anion Gap 3.6; Blood Urea Nitrogen 17.0 mg/dL (7.0-18.0); Calcium 8.6 mg/dL (8.5-10.1); Carbon Dioxide 42.7 mmol/L (21.0-32.0); Chloride 106 mmol/L (98-107); Estimated GFR (African America >60 (>=60 mL/min/1.73m^2); Estimated GFR (Non-African Ame >60 (>=60 mL/min/1.73m^2); Glucose 92 mg/dL (74-106); Potassium 4.3 mmol/L (3.5-5.1); Sodium 148 mmol/L (136-145)
[2025-10-17 19:01] LABS: NT Pro B Type Natriuretic Pept 550.0 pg/mL (<=900.0)
--- OUTSIDE RECORDS SUMMARY | 2025-10-17 19:08 | XMS_ITS | CCD ---
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 Name Role Phone Radames Mart MD Primary Care Provider [phone] JOSUE CASTRO Admitting Unavailable JOSUE CASTRO Attending Unavailable RADAMES MART Primary Care Unavailable JOSUE CASTRO Referring Unavailable RADAMES MART Primary Care Unavailable RADAMES MART Primary Care Unavailable JOSUE CASTRO Referring Unavailable Orlando Valencia Unavailable MISC, [...] LAU Attending Unavailable Radames Mart MD Unavailable [phone] Radames Mart MD Primary Care Provider [phone] Josue Castro Attending Unavailable RADAMES MART Primary Care Unavailable Josue Castro Attending Unavailable RADAMES MART Primary Care Unavailable RADAMES MART Primary Care Unavailable Josue Castro Attending Unavailable IRINA BOWMAN Attending Unavailable IRINA BOWMAN Attending Unavailable Allergies Allergy ClassificationReported Allergen(s)Allergy TypeDate of OnsetReaction(s) Facility (1 source)TheophyllineDrug AllergydizzinessNorth Seafile Other (1 source)Dust; Translations: [Dust]Propensity to adverse reactions (disorder) [facility]ository (2 sources)House dust miteAllergy to vokyrawqh97-47-3772[facility] Work Phone: Medications Current Medications MedicationDrug Class(es)DatesSig (Normalized)Sig (Original)30 actuat aclidinium bromide 0.4 mg/actuat dry powder inhaler (4 sources)Start: 59-03-6552Ccmukhw Pressair 400 MCG/ACT inhaler Indications: Centrilobular emphysema [...] the morning and at bedtime 0 ActiveAclidinium [place] 400 MCG/ACT (1 source)take 1 puff(s) by inhalation once dailyAclidinium [place] 400 MCG/ACT 1 puff Inhalation daily Activealbuterol 0.833 mg/ml / ipratropium bromide 0.167 mg/ml inhalation solution (5 sources)Anticholinergic, beta2-Adrenergic AgonistStart: 02-07-2025 ipratropium-albuterol (Duo-Neb) 0.5-2.5 mg/3 mL nebulizer solution Indications: Centrilobular emphysema (HCC) Take 3 mL by nebulization 4 (four) times a day as needed for wheezing or shortness of breath 150 mL 5 02/07/2025 ActiveALPRAZolam 0.25 mg oral tablet (2 sources)BenzodiazepineStart: 09-30-2025 End: 36-30-0408teor 1 tablet by mouth every twenty-four hours as needed for anxiety and anxiety and anxietyALPRAZolam (Xanax) 0.25 MG tablet Indications: Anxiety Take 1 tablet (0.25 mg) by mouth Daily as needed for anxiety 30 tablet 09/30/2025 10/30/2025 Activebicalutamide 50 mg oral tablet (1 source)Androgen Receptor Inhibitortake 1 tablet by mouth every twenty-four hoursBicalutamide 50 MG 1 tablet Orally Once a day Nqvkau358 actuat budesonide 0.16 mg/actuat / formoterol fumarate 0.0045 mg/actuat metered dose inhaler (1 source)Corticosteroid, beta2-Adrenergic Agonisttake 2 puff(s) by inhalation twice dailyBudesonide-Formoterol Fumarate 160-4.5 MCG/ACT 2 puffs Inhalation Twice a day Mjzjxn313 actuat budesonide 0.16 mg/actuat / formoterol fumarate 0.0048 mg/actuat / glycopyrrolate 0.009 mg/actuat metered dose inhaler (7 sources)Corticosteroid, beta2-Adrenergic AgonistStart: 55-58-6295jkgn 2 puff(s) by inhalation in the oeqyrifWfddgkt-Odujfoojbev-Lubplhnkwx (Breztri Aerosphere) 160-9-4.8 MCG/ACT aerosol Indications: Chronic obstructive pulmonary disease, unspecified COPD type (HCC) Inhale 2 puffs in the morning and 2 puffs before bedtime. 09/30/2025 ActiveStart: 02-07-2025 End: 89-75-7642wphq 2 puff(s) by inhalation in the morning Bwevdpf-Chucuebhcyj-Fwecjecvkq (Breztri Aerosphere) 160-9-4.8 MCG/ACT aerosol Indications: Chronic obstructive pulmonary disease, unspecified COPD type (HCC) Inhale 2 puffs in the morning and 2 puffsbefore bedtime. 10.7 g 5 02/07/2025 09/30/2025 Discontinued (Reorder)calcium chloride 0.0014 meq/ml / potassium chloride 0.004 meq/ml / sodium chloride 0.103 meq/ml / sodium lactate 0.028 meq/ml injectable solution (1 source)Start: 27-93-9894tehlsvcq ringers infusionStart: 04-92-5496kxxjuywo ringers infusionclopidogrel 75 mg oral tablet (11 sources)P2Y12 Platelet Inhibitorclopidogrel (Plavix) 75 MG tablet 1 (one) time each day at the same time. ActivedilTIAZem hydrochloride 60 mg oral tablet (3 sources)Calcium Channel BlockerdilTIAZem (Cardizem) 60 MG immediate release tablet Take 30 mg by mouth in the morning and 30 mg atnoon and 30 mg in the evening and 30 mg before bedtime. Activedoxazosin 2 mg oral tablet (10 sources)alpha-Adrenergic BlockerStart: 77-08-8110zyom 1 tablet by mouth at bedtimedoxazosin (Cardura) 2 MG tablet Take 2 mg by mouth at bedtime 02/03/2024 ActiveStart: 98-21-4772RLSHUSLDR MESYLATE POtake 1 tablet by mouth every twenty- four hoursDoxazosin Mesylate 2 MG 1 tablet Orally Once a day Activeezetimibe 10 mg / simvastatin 40 mg oral tablet (8 sources)HMG-CoA Reductase Inhibitor, Dietary Cholesterol Absorption Inhibitor ezetimibe-simvastatin (Vytorin) 10-40 MG tablet 1 (one) time each day at the same time. Jrzsba15 actuat fluticasone propionate 0.25 mg/actuat / salmeterol 0.05 mg/actuat dry powder inhaler (2 sources)Corticosteroid, beta2-Adrenergic Agonisttake 1 puff(s) by inhalation every twelve hoursfluticasone-salmeterol (ADVAIR) 250-50 MCG/ACT AEPB diskus inhaler Inhale 1 puff into the lungs every 12 hours 0 Cvtbqp77 ml lidocaine hydrochloride 10 mg/ml injection (1 source)Antiarrhythmic, Amide Local AnestheticStart: 05-04-2022 End: 66-21-1792nzjzyjhdp PF 1 % injection 1 mLnitroglycerin 0.4 mg sublingual tablet (3 sources)Nitrate VasodilatorStart: 55-16-1706injsqcpdzgwrt (Nitrostat) 0.[address] 0.4 mg under the tongue every 5 (five) minutes if needed for chest pain 09/05/2025 ActiveOxygen (8 sources)oxygen (O2) gas Inhale 2 L/min continuously. ActiveOxygen 2 liters (1 source)Oxygen 2 liters Activepantoprazole 40 mg delayed release oral tablet (2 sources)Proton Pump InhibitorStart: 24-01-3875bbyz 1 tablet by mouth in the morningpantoprazole (ProtoNix) 40 MG EC tablet Indications: Gastroesophageal reflux disease without esophagitis Take 1 tablet (40 mg) by mouth in the morning. Do not crush, chew, or split. 90 tablet 3 09/30/2025 Activerelugolix (Orgovyx) 120 MG tablet (3 sources)Start: 76-89-0920ssre 1 tablet by mouth once dailyrelugolix (Orgovyx) 120 MG tablet Take 120 mg by mouth Daily. 07/17/2025 ActiveRespiratory Therapy Supplies (Nebulizer/Tubing/Mouthpiece) kit (5 sources)Start: 03-68-4387Xfbegxpxpfn Therapy Supplies (Nebulizer/Tubing/Mouthpiece) kit Indications: Centrilobular emphysema(HCC) [...] sodium chloride flush 0.9 % injection 5-40 mLWixela Inhub 500-50 MCG/DOSE (1 source)Start: 09-45-7756otil 1 puff(s) by inhalation twice dailyWixela Inhub 500-50 MCG/DOSE 1 puff Inhalation Twice a day for 30 days Apr, Active Completed/Discontinued Medications MedicationDrug Class(es)DatesSig (Normalized)Sig (Original)albuterol 0.83 mg/ml inhalation solution (7 sources)beta2-Adrenergic AgonistStart: 07-10-2025 End: 49-16-3940qgmaxpvin (2.5 MG/3ML) 0.083% nebulizer solution Take 2.5 mg by nebulization every 6 (six) hours ifneeded for wheezing or shortness of breath 07/10/2025 09/30/2025 DiscontinuedStart: 22-45-5168smdzdfzva (2.5 MG/3ML) 0.083% nebulizer solution Indications: Centrilobular [...] the lungs every 6 hours PRN 0 Activeapixaban 5 mg oral tablet (3 sources)Factor Xa InhibitorStart: 09-24-2025 End: 29-77-3315ibhl 1 tablet by mouth in the morningEliquis 5 MG tablet Take 5 mg by mouth in the morning and 5 mg before bedtime. 09/24/2025 09/30/2025 Discontinued (Cost of medication)linaclotide 0.145 mg oral capsule (7 sources)Guanylate Cyclase-C AgonistStart: 01-24-2024 End: 17-89-3780ajcl 1 capsule by mouth before mealtimelinaCLOtide (Linzess) 145 MCG capsule Indications: Chronic idiopathic constipation Take 1 capsule (145 mcg) by mouth in the morning. Take before meals. Do not crush or chew.. 30 capsule 11 Discontinued (Cost of medication)Linzess PRN Activemirtazapine 15 mg oral tablet (14 sources)Start: 09-24-2025 End: 68-80-2987lsol 1 tablet by mouth at bedtimemirtazapine (Remeron) 15 MG tablet Take 15 mg by mouth at bedtime 09/24/2025 09/30/2025 Discontinued (Therapy completed)Start: 65-95-3987qslh 1 tablet by mouth at bedtimemirtazapine (Remeron) [...] Activeomeprazole 20 mg delayed release oral tablet (11 sources)Proton Pump InhibitorStart: 02-03-2024 End: 73-34-6932gliw 1 tablet by mouth before mealtimeomeprazole OTC (PriLOSEC OTC) 20 MG EC tablet Take 20 mg by mouth in the morning. Take before meals. 02/03/2024 09/30/2025 Discontinuedtake 1 capsule by mouth once dailyPriLOSEC 20 MG 1 capsule Orally Once a day for 30 day(s) Activeprazosin 5 mg oral capsule (5 sources)alpha-Adrenergic Alex End: 48-83-7503iwfg 1 capsule by mouth at bedtimeprazosin (Minipress) 5 MG capsule Take 5 mg by mouth at bedtime 09/30/2025 Discontinuedtriamcinolone acetonide 0.055 mg/actuat metered dose nasal spray (8 sources)Corticosteroid End: 04-08-0383wzbqgkwveuosh (Nasacort Allergy 24HR) 55 MCG/ACT nasal inhaler 1 (one) time each day at the same time. 09/30/2025 Discontinued (Therapy completed) Problems Active Problems Problem ClassificationProblemDateDocumented DateEpisodic/ChronicAnxiety disorders (18 sources)Anxiety; Translations: [Anxiety disorder, unspecified]Onset: 211625-94-1939PbbcizdMtlqnbwnv and vision defects (3 sources)Diplopia; Translations: [Diplopia]Onset: 376897-24-1271Lghfwuqa Cancer of prostate (13 sources)Malignant neoplasm of prostate; Translations: [Malignant tumor of prostate]Onset: 96-46-6092UwfmwxsNsyjhzi dysrhythmias (4 sources)Paroxysmal atrial fibrillation; Translations: [Paroxysmal atrial fibrillation]Onset: 478014-72-3113OwhomrwQwfobylk (8 sources)Bilateral age-related nuclear cataracts; Translations: [Age-related nuclear cataract, bilateral]Onset: 546828-50-1219GyvrsznQsjitid obstructive pulmonary disease and bronchiectasis (20 sources)Emphysema; Translations: [Emphysema, unspecified]Onset: 06-15-2023 76-05-1673EnzxbkcTofcltvl atherosclerosis and other heart disease (10 sources)Coronary atherosclerosis; Translations: [Atherosclerotic heart disease of [place] coronary artery without angina pectoris]Onset: 06-15-2023 72-81-8435QoaoddaBoxbpjpsg of lipid metabolism (16 sources)Pure hypercholesterolemia; Translations: [Pure hypercholesterolemia, unspecified]Onset: 700119-05-5977FtlokayOjcerxybiz disorders (10 sources)Gastroesophageal reflux disease; Translations: [Gastro-esophageal reflux disease without esophagitis]Onset: 921509-08-4052PpfaafdIewicastsbi of prostate (1 source)Benign prostatic hyperplasia with lower urinary tract symptoms; Translations: [Benign prostatic hyperplasia with lower urinary tract symptoms] Onset: 22-79-8655PnanwpqMrboxlqahpcns and screening for infectious disease (1 source)Contact with and (suspected) exposure to tuberculosis; Translations: [Exposure to tuberculosis (event)]EpisodicMood disorders (10 sources)Major depressive disorder; Translations: [Major depressive disorder, single episode, unspecified]Onset: 970838-42-0502ZdvbznlZmyfm connective tissue disease (8 sources)Cramp in lower limb; Translations: [Sleep related leg cramps]Onset: 066510-01-4809CgjmcijSrzfe diseases of kidney and ureters (1 source)Other obstructive and reflux uropathy; Translations: [Other obstructive and reflux uropathy]Onset: 47-69-9024VzlfktarHghla gastrointestinal disorders (2 sources)Chronic idiopathic constipation; Translations: [Chronic idiopathic constipation]30-21-7399ExhllebXoajw gastrointestinal disorders (1 source)Flatulence, eructation and gas pain; Translations: [Abdominal distension (gaseous)]EpisodicOther gastrointestinal disorders (1 source)Abdominal distension (gaseous)EpisodicOther gastrointestinal disorders (1 source)Constipation, unspecifiedEpisodicOther lower respiratory disease (1 source)Multiple nodules of lung; Translations: [Other nonspecific abnormal finding of lung field]EpisodicPeripheral and visceral atherosclerosis (8 sources)Peripheral vascular disease; Translations: [Peripheral vascular disease, unspecified]Onset: 216764-88-1320PbfstwnJsxsubkzehi failure; insufficiency; arrest (adult) (14 sources)Dependence on supplemental oxygen; Translations: [Dependence on supplemental oxygen]Onset: 682364-12-0788NwciupoSoyfsooezlg failure; insufficiency; arrest (adult) (2 sources)Acute respiratory failure; Translations: [Acute respiratory failure with hypoxia]15-53-8189Dhfbetco Past or Other Problems Problem ClassificationProblemDateDocumented DateEpisodic/ChronicOther and unspecified benign neoplasm (8 sources)History of polyp of colon; Translations: [History of colonic polyps] Onset: 465533-49-8392BvzmchcmGqjlr connective tissue disease (8 sources)Cramp in lower leg associated with rest; Translations: [Cramp and spasm]Onset: 663489-31-6153KdyqosouHmout gastrointestinal disorders (9 sources)Constipation; Translations: [Constipation, unspecified]Onset: 170408-07-9252TjxjcovsUkevy lower respiratory disease (8 sources)Nodule of lung; Translations: [Solitary pulmonary nodule]Onset: 446417-20-5590XqrfktwpHyzfa screening for suspected conditions (not mental disorders or infectious disease) (9 sources)Raised prostate specific antigen; Translations: [Elevated prostate specific antigen [PSA]]Onset: 03-18-6554HzxixxhyMoivdwjx codes; unclassified (7 sources)Contact with and (suspected) exposure to other hazardous substances; Translations: [Contact with and (suspected) exposure to other potentially hazardous substances]Onset: 711178-95-4016Vmogjbth Results Test NameValueInterpretationReference RangeFacilityLab - Other Lab Resultson 91-54-5784Ngf - Other Lab Results [id number]#1.00OTTwin City HospitalXR CHEST 2Von 64-40-7[address] [address] XRay Report Signed Patient: BRIAN QUEZADA MR#: [id number] : 1950 Acct:[id number] Age/Sex: 73 / M ADM Date: 05/30/24 Loc: LAB Attending Dr: RADAMES MART Ordering Physician: RADAMES MART Date of Service: 05/30/24 Procedure(s): XR chest 2V Accession Number(s): [id number] cc: RADAMES MART [address] [address] Patient Name: BRIAN QUEZADA MRN: [id number] date: 1950 Sex: M Assigned Patient Location: LAB Current Patient Location: LAB Accession/Order Number: [id number] Exam Date: 05/30/2024 14:20 Report Date: 06/02/2024 04:37 At the request of: RADAMES MART Procedure: XR chest 2V EXAMINATION: XR [...] changes compatible with COPD. Electronically authenticated by: BLAYNE CHOU Date: 06/02/2024 04:37 Dictated By: Blayne Chou M.D. Signed By: 06/02/249 DD/ 6 TD/TT: Middleware Architect:TBHRadiology, Radiologist, - 06/02/2024 [place] [address] XRay Report Signed Patient: BRIAN QUEZADA MR#: [id number] : 1950 Acct:[id number] Age/Sex: 73 / M ADM Date: 05/30/24 Loc: LAB Attending Dr: RADAMES MART Ordering Physician: RADAMES MART Date of Service: 05/30/24 Procedure(s): XR chest 2V Accession Number(s): [id number] cc: RADAMES MART [place] [address] Patient Name: BRIAN QEUZADA MRN: [id number] date: 1950 Sex: M Assigned Patient Location: LAB Current Patient Location: LAB Accession/Order Number: [id number] Exam Date: 05/30/2024 14:20 Report Date: 06/02/2024 04:37 At the request of: RADAMES MART Procedure: XR chest 2V EXAMINATION: XR [...] changes compatible with COPD. Electronically authenticated by: BLAYNE CHOU Date: 06/02/2024 04:37 Dictated By: Blayne Chou M.D. Signed By: 06/02/24438 DD/ 6 TD/TT: Middleware Architect: LYNN HealthcareRadiology Study observation (narrative)[facility] HealthcareXR CHEST 2V Ordered By: Radiologist Radiology on 18-70-0982VQJG Healthcare Work Phone: ct ABDOMEN PELVIS W CONon 89-44[place], [place] [address] [place] Scan Report Signed Patient: BRIAN QUEZADA MR#: [id number] : 1950 Acct:[id number] Age/Sex: 73 / M ADM Date: 05/30/24 Loc: LAB Attending Dr: RADAMES MART Ordering Physician: RADAMES MART Date of Service: 05/30/24 Procedure(s): CT abdomen pelvis w con Accession Number(s): [id number] cc: RADAMES MART [place] [address] Patient Name: BRIAN QUEZADA MRN: [id number] date: 1950 Sex: M Assigned Patient Location: LAB Current Patient Location: Accession/Order Number: [id number] Exam Date: 05/30/2024 14:25 Report Date: 06/01/2024 10:20 At the request of: RADAMES MART Procedure: CT abdomen pelvis w con [...] moderate degenerative disc disease. Electronically authenticated by: BLAYNE CHOU Date: 06/01/2024 10:20 Dictated By: Blayne Chou M.D. Signed By: 06/01/24 1023 DD/ 1020 TD/TT: Middleware Architect:DEANAadiologglroia, Radiologist, - 06/01/2024 [place] [address] CT Scan Report Signed Patient: BRIAN QUEZADA MR#: [id number] : 1950 Acct:[id number] Age/Sex: 73 / M ADM Date: 05/30/24 Loc: LAB Attending Dr: RADAMES MART Ordering Physician: RADAMES MART Date of Service: 05/30/24 Procedure(s): CT abdomen pelvis w con Accession Number(s): [id number] cc: RADAMES MART [place] [address] Patient Name: BRIAN QUEZADA MRN: [id number] date: 1950 Sex: M Assigned Patient Location: LAB Current Patient Location: Accession/Order Number: [id number] Exam Date: 05/30/2024 14:25 Report Date: 06/01/2024 10:20 At the request of: RADAMES MART Procedure: CT abdomen pelvis w con [...] moderate degenerative disc disease. Electronically authenticated by: BLAYNE CHOU Date: 06/01/2024 10:20 Dictated By: Blayne Chou M.D. Signed By: 06/01/24 1023 DD/ 1020 TD/TT: Middleware Architect: LYNN HealthcareRadiology Study observation (narrative)[facility] HealthcareCT ABDOMEN PELVIS W CONOrdered By: Radiologist Radiology on 41-02-9541FTWA U-NOTE Work Phone: nm BONE SC WH BODYon 34-46-3975UJ BONE SC WH BODY EXAMINATION: NM BONE SC WH BODY HISTORY: Primary malignant neoplasm of prostate COMPARISON: No relevant comparison available. TECHNIQUE: After obtaining the patient's consent, 25.5 mCi Technetium 99m MDP was injected intravenously. Images were obtained approximately two hours later. FINDINGS: ABNORMALITIES: No abnormal or suspicious radiotracer accumulation. OTHER: Negative. IMPRESSION: 1. No evidence of skeletal metastasis. Electronically authenticated by: BLAYNE CHOU Date: 2022-07-26 14:[address] [place], [place] [address]urgical Pathologyon 12-30-2223Uqaampbw Pathology(NOTE) -- Diagnosis -- A. PROSTATE, RIGHT [...] THE ADENOCARCINOMA IN THE INVOLVED BIOPSIES. FOR PROPERTY OFFICER THE SLIDES OF SPECIMEN B WERE REVIEWED BY A SECOND PATHOLOGIST (FERNANDO). * THIS TEST WAS DEVELOPED AND ITS PERFORMANCE CHARACTERISTICS DETERMINED BY [facility] ANATOMIC [facility]OLOG[facility]. IT HAS NOT BEEN [...] SURGICAL PATHOLOGY CONSULTATION Patient Name: BRIAN QUEZADA Rec: [id number] Path Number: [id number] [facility] ANATOMIC PATHOLOG[facility] [address] [place] [phone] NoMetroHealth Main Campus Medical CenterComment on above:Performed By: #### PPPVS #### [employer] [address] [place] [address] [id number] Senior Information Security Architect: Brady Wilkes MDEKG 12 LeadOrdered By: Ney Ferrara on 96-65-6246Mvilrs Depk59EEWYAY [employer] Work Phone: P Ozuj31dluasvcNYSOffermatic Work Phone: P-R Fpephxjb803 [employer] Work Phone: Q-T Kdenzwmh945 [employer] Work Phone: QRS Svemawwj62 [employer] Work Phone: [phone] Calculation (Bazett)410 msBON [employer] Work Phone: R Wqwl89nrkqaeuTKWblinkbox music Work Phone: T Vjgf27hqgstblZYPblinkbox music Work Phone: Ventricular Pklr59ZDPQNM [employer] Work Phone: BON [employer] Work Phone: [phone] 12 Leadon 06-32-4486Nrqplv sinus rhythm Low voltage QRS Borderline ECG No previous ECGs availableUPPER ALLEGHENY [facility] Ney Mims MD - 04/24/2022 Normal sinus rhythm Low voltage QRS Borderline ECG No previous ECGs availableHENRICO DOCT[facility] [employer] Work Phone: bUN & Creatinineon 61-00-2934Zjcgtihbzt [Mass/Vol]0.93 mg/dL0.70 - 1.20 mg/dLBON [facility] [employer] TechnologyGFR >60>60 mL/min [facility] CENTERGFR Non->60>60 mL/minBON [facility] A[facility]UM MEDICAL CENTERGFR/1.73 sq M.predicted MDRD (S/P/Bld) [Vol rate/Area][facility] HEALTH CENTERComment on above:Average GFR for 60-69 years old: 85 mL/min/1.73sq m Chronic Kidney Disease: <60 mL/min/1.73sq m Kidney failure: <15 mL/min/1.73sq m eGFR calculated using average adult body mass. Additional eGFR calculator available at: http://www.Mobjoy/multiple_crcl_2012.htm Urea nitrogen (BldV) [Mass/Vol]10 mg/dL8 - 23 mg/dLBON PREMI[facility] HE[facility] ATRIUM MEDICAL CENTERBUN + Creatinineon 04-23-2022(cont.)NormalTogus Va Medical CenterComment on above: Result Comment: Average GFR for 60-69 years old: 85 mL/min/1.73sq m Chronic Kidney Disease: <60 mL/min/1.73sq m Kidney failure: <15 mL/min/1.73sq m eGFR calculated using average adult body mass. Additional eGFR calculator available at: http://www.Mobjoy/multiple_crcl_2012.htmPerformed By: #### CBC, BUNCRT, LYTE #### [facility] [address] [place] [address] Senior Information Security Architect: JAYDE Subramanianreatinine [Mass/Vol]0.93 mg/dLNormal0.70-1.20 [facility] Medical CenterComment on above:Performed By: #### CBC, BUNCRT, LYTE #### [facility] [address] [facility] [place] [address] Senior Information Security Architect: Jean-Pierre Gallardo MDGFR, Amer>60Normal>60[facility] HospitalCommclaren caro region on above:Performed By: #### CBC, BUNCRT, LYTE #### [facility] [address] [place] [address] Senior Information Security Architect: Jean-Pierre Gallardo MDGFR,non Amer>60Normal>60[facility] HospitalCommclaren caro region on above:Performed By: #### JAZMINE, BUNCRT, LYTE #### [facility] [address] [place] [address] Senior Information Security Architect: Jean-Pierre Gallardo MDUrea nitrogen [Mass/Vol]10 mg/dLNormal8-23[facility] HospitalCommclaren caro region on above:Performed By: #### CBC, BUNCRT, LYTE #### [facility] [address] [place] [address]. [place] [address] Senior Information Security Architect: Bob Subramanian 77-29-2685Vvaynbyyxxe distribution width (RBC) [Ratio]11.9 %Gzvptp31.8-14.4[facility] HospitalComment on above: Performed By: #### JAZMINE, BUNCRT, LYTE #### [facility] [address] [place] [address] Senior Information Security Architect: Jean-Pierre Gallardo MDHematocrit (Bld) [Volume fraction]45.0 %Normal 40.7-50.3[facility] HospitalCommclaren caro region on above:Performed By: #### CBC, BUNCRT, LYTE #### [facility] [address] [place] [address] Senior Information Security Architect: Jean-Pierre Gallardo MDHemoglobin (Bld) [Mass/Vol]14.1 g/dLNormal 13.0-17.0[facility] Medical CenterCommclaren caro region on above:Performed By: #### CBC, BUNCRT, LYTE #### [facility] [address] [place] [address]. [place] [address] Senior Information Security Architect: PAVAN SubramanianCH (RBC) [Entitic mass]30.5 haWyekbg43.2-33.5 [facility] on above:Performed By: #### CBC, BUNCRT, LYTE #### [facility] [address] [place] [address]. [place] [address] Senior Information Security Architect: BHAVNA SubramanianC (RBC) [Mass/Vol]31.3 g/bEPlzfan13.4-34.8 [facility] on above:Performed By: #### JAZMINE, BUNCRT, LYTE #### [facility] [address] [place] [address]. [place] [address] Senior Information Security Architect: PAVAN SubramanianCV (RBC) [Entitic vol]97.4 yTDknoji04.6-102.9 [facility] on above:Performed By: #### CBC, BUNCRT, LYTE #### [facility] [address] [place] [address]. [place] [address] Senior Information Security Architect: KWESI Subramanian Automated0.0 per 100 WBCNormal0.0[facility] on above:Performed By: #### CBC, BUNCRT, LYTE #### [facility] [address] [place] [address]. [place] [address] Senior Information Security Architect: Aren Subramanianlet mean volume (Bld) [Entitic vol]9.9 fL Normal8.1-13.5[facility] Va Medical CenterCommclaren caro region on above:Performed By: #### CBC, BUNCRT, LYTE #### [facility] [address] [facility] [place] [address] Senior Information Security Architect: Srinivas Subramanian (Bld) [#/Vol]162 10*3/nOGauivs389-124 [facility] Va Medical CenterComment on above:Performed By: #### CBC, BUNCRT, LYTE #### [facility] [address] [place] [address]. [place] [address] Senior Information Security Architect: MANE Subramanian (Bld) [#/Vol]4.62 10*6/uLNormal4.21-5.77 [facility] Va Medical CenterComment on above:Performed By: #### JAZMINE, BUNCRT, LYTE #### [facility] [address] [place] [address]. [place] [address] Senior Information Security Architect: ANASTASIA Subramanian (Bld) [#/Vol]9.2 10*3/uLNormal3.5-11.3MFormerly Kittitas Valley Community HospitalComment on above:Performed By: #### JAZMINE, BUNCRT, LYTE #### [facility] [address] [place] [address]. [place] [address] Senior Information Security Architect: Jean-Pierre Gallardo MDHematocrit (Bld) [Volume fraction]45.0 %40.7 - 50.3 %[facility] HEALTH CENTERHemoglobin.gastrointestinal spec 1 Ql (Stl)14.1 g/dL13.0 - 17.0 g/dLBON [facility]H (RBC) [Entitic mass]30.5 pg25.2 - 33.5 pgBON [facility]OS[facility] SOUTHHC (RBC) [Mass/Vol]31.3 g/dL28.4 - 34.8 g/dL [facility]V (RBC) [Entitic vol]97.4 fL82.6 - 102.9 fLBON PRE[facility] ATRIUM MEDICAL CENTERNRBC Automated0.00.0 per 100 WBCBON SECOURS MERCY HEALTHPlatelet distribution width (Bld) [Ratio]11.9 %11.8 - 14.4 %[facility] Platelet mean volume (Bld) [Entitic vol]9.9 fL8.1 - 13.5 fLBON [facility] HEALTHPlatelets (Bld) [#/Vol]162 10*3/uLBON [facility] HEALTHRBC (Bld) [#/Vol]4.62 10*6/uL4.21 - 5.77 m/uLBON [facility] ATRIUM MEDICAL CENTERWBC (Bld) [#/Vol]9.2 10*3/uLBON [facility] HEALTHBON [facility] HEALTHElectrolyte Panelon 01-35-5250Sbtdx gap [Moles/Vol]6 mmol/LLow9 - 17 mmol/LBON [facility] Chloride [Moles/Vol]101 mmol/L98 - 107 mmol/LBON [facility] MEDICAL CENTERCO2 [Moles/Vol]35 mmol/LHigh20 - 31 mmol/LBON [facility] HEALTHInterpretation and review of laboratory resultsAbnormalBON [facility] HEALTHPotassium [Moles/Vol]4.6 mmol/L3.7 - 5.3 mmol/LBON [facility] HEALTHSodium [Moles/Vol] 142 mmol/L135 - 144 mmol/LBON [facility] MEDICAL CENTERElectrolyteson 35-02-4818Ifhyw gap [Moles/Vol]6 mmol/LLow9-17MerAstria Toppenish HospitalComment on above:Performed By: #### TONY LUCERO LYTE #### [facility] [address] [place] [address] Senior Information Security Architect: JAYDE Subramanianhloride [Moles/Vol]101 mmol/YQwqnby50-083EdrniTogus Va Medical CenterCommclaren caro region on above:Performed By: #### TONY LUCERO LYTE #### [facility] [address] [facility] [place] [address] Senior Information Security Architect: JAYDE SubramanianO2 [Moles/Vol]35 mmol/THaah04-00FkvgfTogus Va Medical CenterComment on above:Performed By: #### CBC, BUNCRT, LYTE #### [facility] [address] [place] [address] Senior Information Security Architect: STEPHANIE Subramanianotassium [Moles/Vol]4.6 mmol/LNormal3.7-5.3 [facility] Va Medical CenterComment on above:Performed By: #### CBC, BUNCRT, LYTE #### [facility] [address] [place] [address] Senior Information Security Architect: Jean-Pierre Gallardo MDSodium [Moles/Vol]142 mmol/SCwzsps681-481CgrdcTogus Va Medical CenterComment on above:Performed By: #### CBC, BUNCRT, LYTE #### [facility] [address] [place] [address] Senior Information Security Architect: Jean-Pierre Gallardo MDNovant Health Franklin [facility] Informationon [id number] BEDFORD MEMORIAL HOSPITALChronic pulmonary change without acute cardiopulmonary process. [facility] RIS CONSOLIDATEDEXAMINATION: TWO XRAY VIEWS OF THE CHEST [...] unremarkable. The extrathoracic soft tissues are unremarkable. [facility] Frank Armijo MD - 04/23/2022 EXAMINATION: TWO [...] Chronic pulmonary change without acute cardiopulmonary process. [employer] Phone: radiology Study observation (narrative)[employer] Phone: No Panel InformationOrdered By: Frank Roque on [phone] [employer] Phone: XR CHEST (2 VW)on [phone] CHEST (2 VW) EXAMINATION: TWO XRAY VIEWS [...] Signed by: Frank Roque MD 04/23/22 Final resultNormalMerAstria Toppenish HospitalQ - PSA (FREE AND TOTAL)on 02-02-2022 PSA, % FREE13 % (calc)Low>25[place] [facility] SpecialistComment on above: Order Comment: [facility] Testing performed at: [facility], [facility], [address] [place] [address], [address] [place] [address], [phone], Foot Orthopedist: Fermín Aj MD [facility] Collection Date/Time: [id number] [facility] Results Received Date/Time: [id number] [facility] Reported Date/Time: [id number] Comment: PSA(ng/mL) Free PSA(%) Estimated(x) Probability of Cancer(as%) 0-2.5 (*) Approx. 1 2.6-4.0(1) 0-27(2) 24(3) 4.1-10(4) 0-10 56 11-15 28 16-20 20 21-25 16 >or =26 8 >10(+) N/A >50 References:(1)Kevin et al.:Urology 60: 469-474 (2002) (2)Kevin et al.:J.Urol 168: 922-925 (2001) Free PSA(%) Sensitivity(%) Specificity(%) < or = 25 85 19 < or = 30 93 9 (3)Kevin et al.:PAVAN 277: 6898-8618 (1996) (4)Catalona et al.:PAVAN 279: 6401-5260 (1997) (x)These estimates vary with age, ethnicity, [...] mind. PSA was performed using the [place] Immunoassay method. Values obtained from different assay methods cannot be used interchangeably. PSA levels, regardless of value, should not be interpreted as absolute evidence of the presence or absence of disease.Performed By: #### [id number] #### [facility] Default [address] [place], [place] [address]CVJ, FREE0.9 ng/mLNormalNorttuba city regional health care corporationn [facility] SpecialistComment on above:Order Comment: [facility] performed at: [employer], [facility], [address] [place] [address], [address] [place] [address], [phone], Foot Orthopedist: Fermín Aj MD [facility] Collection Date/Time: [facility] Results Received Date/Time: [id number] [facility] Reported Date/Time: [id number] By: #### [id number] #### [facility] Default [address] [place], [place] [address]CWN, TOTAL7.0 ng/mLHigh< OR = 4.0Norttuba city regional health care corporationn [facility] AssociationCommercial Relief Driver Comment on above:Order Comment: [facility] performed at: [employer], [facility], [address] [place] [address], [address] [place] [address], [phone], Foot Orthopedist: Fermín Aj MD [facility] Collection Date/Time: [facility] Results Received Date/Time: [facility] Reported Date/Time: [id number] By: #### [id number] #### [facility] Default [address] [place], [place] [address]Vekbjjkp Blood Count with Auto Diffon 91-42-5249Sxjnnqefc (Bld) [#/Vol]0.07 10*3/uLNormal0.00-0.20[facility] Medical CenterComment on above:Performed By: #### CBCAD, CMP, LIPD #### [facility] [address] [place], [place] [id number]/100 WBC (Bld)1.0 %NormalUniversity Hospitals Lake West Medical CenterComment on above:Performed By: #### CBCAD, CMP, LIPD #### [facility] [address] [place], [place] [id number] (Bld) [#/Vol]0.23 10*3/uLNormal0.02-0.50[facility] Medical CenterComment on above:Performed By: #### CBCAD, CMP, LIPD #### [facility] [address] [place], [place] [id number]/100 WBC (Bld)3.2 %[facility] SpecialistComment on above:Performed By: #### CBCAD, CMP, LIPD #### [facility] [address] [place], [place] [id number] distribution width (RBC) [Ratio]11.9 %Normal 11.0-15.0[facility] Medical CenterComment on above:Performed By: #### CBCAD, CMP, LIPD #### [facility] [address] [place], [place] [id number] (Bld) [Volume fraction]43.2 %Fljtgs87.5-50.0 [facility] Medical CenterComment on above:Performed By: #### CBCAD, CMP, LIPD #### [facility] [address] [place], [place] [id number] (Bld) [Mass/Vol]14.3 g/nHZbgvug10.0-17.1NortherCleveland Clinic SpecialistComment on above:Performed By: #### CBCAD, CMP, LIPD #### [facility] [address] [place], [place] [id number] (Bld) [#/Vol]2.0 10*3/uLNormal0.9-3.9NoRegency Hospital Cleveland East SpecialistComment on above:Performed By: #### CBCAD, CMP, LIPD #### [facility] [address] [place], [place] [id number]/100 WBC (Bld)28.0 %NormalNoRegency Hospital Cleveland East SpecialistComment on above:Performed By: #### CBCAD, CMP, LIPD #### [facility] [address] [place], [place] [id number] (RBC) [Entitic mass]31.0 ckImngtf46.0-33.0NoRegency Hospital [facility] East SpecialistComment on above:Performed By: #### CBCAD, CMP, LIPD #### [facility] [address] [place], [place] [id number] (RBC) [Mass/Vol]33.1 g/tZYamdxx21.0-36.0NoRegency Hospital [facility] East SpecialistComment on above:Performed By: #### CBCAD, CMP, LIPD #### [facility] [address] [place], [place] [id number] (RBC) [Entitic vol]94 yCGsxjdz54-956Awdwppgx [facility] SpecialistComment on above:Performed By: #### CBCAD, CMP, LIPD #### [facility] [address] [place], [place] [id number] (Bld) [#/Vol]0.7 10*3/uLNormal0.2-0.9NoRegency Hospital [facility] East SpecialistComment on above:Performed By: #### CBCAD, CMP, LIPD #### [facility] [address] [place], [place] [id number]/100 WBC (Bld)9.3 %NormalUniversity Hospitals Lake West Medical Center SpecialistComment on above:Performed By: #### CBCAD, CMP, LIPD #### [facility] [address] [place], [place] [id number] (Bld) [#/Vol]4.2 10*3/uLNormal1.5-7.8NortThe [facility] SpecialistComment on above:Performed By: #### CBCAD, CMP, LIPD #### [facility] [address] [place], [place] [id number]/100 WBC (Bld)58.4 %NormalNoRegency Hospital Cleveland East SpecialistComment on above:Performed By: #### CBCAD, CMP, LIPD #### [facility] [address] [place], [place] [id number] mean volume (Bld) [Entitic vol]10.20 fLNormal 7.50-12.50NoRegency Hospital [facility] SpecialistComment on above:Performed By: #### CBCAD, CMP, LIPD #### [facility] [address] [place], [place] [id number] (Bld) [#/Vol]151 10*3/jRTztznk626-029Offpvyoz [place] [facility] SpecialistComment on above:Performed By: #### CBCAD, CMP, LIPD #### [facility] [address] [place], [place] [id number] (Bld) [#/Vol]4.61 10*6/uLNormal4.20-5.80NortThe [facility] System SpecialistComment on above:Performed By: #### CBCAD, CMP, LIPD #### [facility] [address] [place], [place] [id number]-YT18.6 yGOyqvge90.0-50.0NoRegency Hospital [facility] Specialist Comment on above:Performed By: #### CBCAD, CMP, LIPD #### [facility] [address] [place], [place] [id number] (Bld) [#/Vol]7.2 10*3/uLNormal3.8-11.0NoRegency Hospital [facility] East SpecialistComment on above:Performed By: #### CBCAD, CMP, LIPD #### [facility] [address] [place], [place] [id number] Metabolic Panelon 39-15-6794Pzilodg [Mass/Vol] 4.5 g/dLNormal3.6-5.1[facility] SpecialistComment on above:Performed By: #### CBCAD, CMP, LIPD #### [facility] [address] [place], [place] [id number]/Globulin [Mass ratio]2.0 {ratio}Normal1.0-2.5NoRegency Hospital [facility] SpecialistComment on above:Performed By: #### CBCAD, CMP, LIPD #### [facility] [address] [place], [place] [id number] [Catalytic activity/Vol]78 U/IEliast95-902Wcbhqijf [place] [facility] SpecialistComment on above:Performed By: #### CBCAD, CMP, LIPD #### [facility] [address] [place], [place] [id number] [Catalytic activity/Vol]17 U/LNormal9-46NoRegency Hospital [facility] SpecialistComment on above:Result Comment: 10/28/2021 Female reference range changed.Performed By: #### CBCAD, CMP, LIPD #### [facility] [address] [place], [place] [id number] gap [Moles/Vol]15 mmol/DSylnph80-65Tvymuhho [place] [facility] SpecialistComment on above:Result Comment: Effective 12/03/2019 reference range changed.Performed By: #### CBCAD, CMP, LIPD #### [facility] [address] [place], [place] [id number] [Catalytic activity/Vol]20 U/TYnfjlw78-42Eqlxzvyp [place] [facility] SpecialistComment on above:Performed By: #### CBCAD, CMP, LIPD #### [facility] [address] [place], [place] [id number] [Mass/Vol]0.53 mg/dLNormal0.30-1.20[place] [facility] SpecialistComment on above:Performed By: #### CBCAD, CMP, LIPD #### [facility] [address] [place], [place] [id number]/CREA11 RatioNormal6-22[place] [employer] Driver Comment on above:Performed By: #### CBCAD, CMP, LIPD #### [facility] [address] [place], [place] [id number] [Mass/Vol]10.0 mg/dLNormal8.6-10.2[place] [facility] SpecialistComment on above:Performed By: #### CBCAD, CMP, LIPD #### [facility] [address] [place], [place] [id number] [Moles/Vol]103 mmol/KTriiyi66-382Tbnsscqv [place] Medical SpecialistComment on above:Performed By: #### CBCAD, CMP, LIPD #### [facility] [address] [place], [place] [id number] [Moles/Vol]30 mmol/ODsiewf91-38Nsafsmsd [place] Medical SpecialistComment on above:Performed By: #### CBCAD, CMP, LIPD #### [facility] [address] [place], [place] [id number] [Mass/Vol]1.1 mg/dLNormal0.7-1.4[place] [facility] SpecialistComment on above:Performed By: #### CBCAD, CMP, LIPD #### [facility] [address] [place], [place] [id number] mL/min/1.56e7Vnctcn>60[place] [facility] SpecialistComment on above:Performed By: #### CBCAD, CMP, LIPD #### [facility] [address] [place], [place] [id number] mL/min/1.30u7Cvdxeo>60[place] [facility] SpecialistComment on above:Performed By: #### CBCAD, CMP, LIPD #### [facility] [address] [place], [place] [id number] (S) [Mass/Vol]2.3 g/dLNormal1.9-3.7NoRegency Hospital [facility] SpecialistComment on above:Performed By: #### RAEGAN, CMP, LIPD #### [facility] [address] [place], [place] [id number] [Mass/Vol]96 mg/nZPokjkp65-11Hvpxfcgk [place] [facility] SpecialistComment on above:Result Comment: For FASTING Glucose --- ADA reference ranges: Normal 65-99 mg/dl Prediabetes 100-125 Diabetes >/= 126Performed By: #### RAEGAN, CMP, LIPD #### [facility] [address] [place], [place] [id number] [Moles/Vol]4.3 mmol/LNormal3.5-5.5NoRegency Hospital [facility] SpecialistComment on above:Performed By: #### RAEGAN, CMP, LIPD #### [facility] [address] [place], [place] [id number] [Mass/Vol]6.8 g/dLNormal6.1-8.1NortherCleveland Clinic SpecialistComment on above:Performed By: #### RAEGAN, CMP, LIPD #### [facility] [address] [place], [place] [id number] [Moles/Vol]143 mmol/KHzridx873-023Sirjpxkd [place] [facility] SpecialistComment on above:Performed By: #### RAEGAN, CMP, LIPD #### [facility] [address] [place], [place] [id number] nitrogen [Mass/Vol]12 mg/dLNormal7-25NortThe [facility] SpecialistComment on above:Performed By: #### RAEGAN, CMP, LIPD #### [facility] [address] [place], [place] [id number] Panelon 50-82-7698Fmhbwnnzalf [Mass/Vol]162 mg/dLNormal 125-200NortThe [facility] SpecialistComment on above:Result Comment: Low risk < 200mg/dL Borderline risk 201-239 mg/dl High risk > or equal to 240Performed By: #### CBCAD, CMP, LIPD #### [facility] [address] [place], [place] [id number] in HDL [Mass/Vol]59 mg/dLNormal>40NoRegency Hospital [facility] SpecialistComment on above:Result Comment: High Cardiovascular Risk HDL <40 mg/dL Low Cardiovascular Risk HDL > or equal to 60 mg/dlPerformed By: #### CBCAD, CMP, LIPD #### [facility] [address] [place], [place] [id number] in LDL [Mass/Vol]79 mg/dLNormalNoRegency [facility] SpecialistComment on above:Result Comment: LDL ATP III CLASSIFICATION LDL less than 100 mg/dl Optimal LDL 100-129 mg/dl Near or above optimal LDL 130-159 Borderline high LDL 160-189 High LDL greater than 189 mg/dl Very HighPerformed By: #### CBCAD, CMP, LIPD #### [facility] [address] [place], [place] [id number] in VLDL [Mass/Vol]24 mg/dLNormalNoRegency Hospital [facility] SpecialistComment on above:Performed By: #### CBCAD, CMP, LIPD #### [facility] [address] [place], [place] [id number].total/Cholesterol in HDL [Mass ratio]3 {ratio} NormalNoRegency Hospital [facility] SpecialistComment on above:Performed By: #### CBCAD, CMP, LIPD #### [facility] [address] [place], [place] [id number] [Mass/Vol]121 mg/cUHisuyx15-255Oasgijjo [place] [facility] SpecialistComment on above:Result Comment: TRIG ATPIII CLASSIFICATIONS TRIG less than 150 mg/dl Normal TRIG 150-199 mg/dl Borderline High TRIG 200-500 mg/dl High TRIG greather than 500 mg/dl Very HighPerformed By: #### CBCAD, CMP, LIPD #### [facility] [address] [place], [place] [id number] SCREEN (MEDICARE)on 92-53-7100UHRY7.940 ng/mLHigh<4.000 [facility] Medical SpecialistComment on above:Result Comment: PSA Test Method: ECLIA/Gilberto e 601Performed By: #### PSA #### [facility] [address] [place], [place] [id number] Vital Signs Date TimeVital SignValuePerforming HkfprexnwGysxetxi56-41-3230 11:19-0500Body sgpias598.8 cmKaren Hemmer PA Work Phone: [facility] [phone] 11:19-0500Body mass index (BMI) [Ratio]26.4 kg/g6Vrgps Hemmer PA Work Phone: [facility] JosephVjrfqtrmab39-77-4295 11:19-0500Body jbqrgy41.46 kgKaren Hemmer PA Work Phone: [facility] JosephDiptarmuye50-81-1305 11:19-0500Diastolic blood aesxeutg67 mm[Hg]Irina Hemmer PA Work Phone: [facility] JosephLzfuixevgt54-35-1637 11:19-0500Heart rate84 /min Irina Hemmer PA Work Phone: [facility] JosephWtveaoifbf01-67-1186 11:19-0500Respiratory rate16 /minKaren Hemmer PA Work Phone: [facility] JosephOdyrjmkxqq75-77-0460 11:19-7744JkD2% (BldA) [Mass fraction]93 %Irina Hemmer PA Work Phone: [facility] JosephJklcxhmddx22-03-5089 11:19-0500Systolic blood nfembgvg114 mm[Hg]Irina Hemmer PA Work Phone: [facility] [phone] 10:30-0400Body icdlfl630.8 cmCameron Livemochagloria Other [facility] [employer] Other 09-27-2022 10:30-0400Body mass index (BMI) [Ratio] 22.67 kg/v2Ucbzrpb Distew Other [facility] [employer] Other 09-27-2022 10:30-0400Body qvafnc10.67 kgOrlando Valencia Other nort [employer] Other 09-27-2022 10:30-0400Diastolic blood mm[Hg] Orlando Valencia Other [facility] [employer] Other 09-27-2022 10:30-0400Systolic blood dokufebv206 mm[Hg] Orlando Valencia Other [facility] [employer] Other 06-06-2022 12:15-0400Body tiruwnbqlak85.2 [degF] Josue Castro MD Work Phone: [facility] [employer]06-06-2022 12:15-0400Diastolic blood fupnoipd29 mm[Hg]Josue Csatro MD Work Phone: [facility] [employer] [employer]06-06-2022 12:15-0400Heart rate77 /minJosue Castro MD Work Phone: [facility] [employer] [employer]06-06-2022 12:15-0400 Respiratory rate15 /minJosue Castro MD Work Phone: [facility] [employer] [employer]06-06-2022 12:15-5892NyQ8% (BldA) [Mass fraction]98 %Josue Castro MD Work Phone: [facility] [employer] [employer]06-06-2022 12:15-0400Systolic blood mm[Hg]Josue Castro MD Work Phone: [facility] [employer] [employer]06-06-2022 10:06-0400Body glaezp845.8 cmJosue Castro MD Work Phone: [facility] [employer] [employer]06-06-2022 10:06-0400Body mass index (BMI) [Ratio]22.96 kg/f7PkujaxnJosue Castro MD Work Phone: [facility]06-06-2022 10:06-0400Body setdfd77.58 kgJosue Castro MD Work Phone: [facility]05-27-2022 08:05-0142WoI8% (BldA) [Mass fraction]95 %Sta [facility]05-27-2022 08:02-0400Body lkgaor966.8 cmSta [facility]05-27-2022 08:02-0400Body mass index (BMI) [Ratio]22.96 kg/m2Sta [address] [place], [place] [address]05-27-2022 08:02-0400Body raisisvlvlk88.7 [degF]Sta [facility]05-27-2022 08:02-0400Body hujxol27.[address] [place], [place] [address]05-27-2022 08:02-0400Diastolic blood qpijhwgz66 mm[Hg]Sta [address] [place], [place] [address]05-27-2022 08:02-0400Heart svyd034 /minSta [address] [place], [place] [address]05-27-2022 08:02-0400Respiratory rate24 /min Sta [address] [place], [place] [address]05-27-2022 08:02-0400Systolic blood rgfeygzq109 mm[Hg]Sta [address] [place] [address] Encounters Encounter DateEncounter TypeCare ProviderFacilityStart: 09-30-2025 End: 03-14-2663Fzuqesmarianne OBRIEN Work Phone: [facility] MedinceStart: 09-30-2025 End: 13-85-6276Grdygpmarianne OBRIEN Work Phone: [facility] MedinceStart: 09-30-2025 End: 00-85-4223Ctinwtmjpubi care manage srvc 14 day dischargeIrina OBRIEN Work Phone: [facility] on above:Paroxysmal atrial fibrillation (HCC) (Primary Dx); Atherosclerosis of [place] coronary artery of [place] heart without angina pectoris; Centrilobular emphysema (HCC); Acute respiratory failure with hypoxia (HCC); Chronic obstructive pulmonary disease, unspecified COPD type (HCC); Oxygen dependent; Anxiety; Gastroesophageal reflux disease without esophagitis; Chronic respiratory failure with hypoxia (HCC); Major depressive disorder, recurrent, moderate (HCC); Chronic idiopathic constipationStart: 09-30-2025 End: 07-55-0170rvaepgoamtRGKCT M HEMMERNot AvailableStart: 09-06-2025 End: 32-28-3707Rjovxvrrr Result EncounterGeneric External Data ProviderNOMS External Department UnsolicitedStart: 09-06-2025 End: 75-72-5329Mpoiffedw Result EncounterGeneric External Data ProviderNOMS External Department UnsolicitedStart: 08-01-2025 End: 54-14-9750zfhhjhesuyVqriuhn J BuckFacility: SURG CLINICStart: 07-23-2025 ambulatoryJosue CastroFacility: SURG CLINICStart: 07-16-2025 End: 72-68-5996uoqpsurmxrGFBFRW BERRYFacility: SURG CLINICStart: 05-13-2025 End: 15-42-4412Biecoargn encounterDacedric Mart MD Work Phone: [facility] CI FMStart: 02-07-2025 End: 42-61-1527Qxgecjlin OBRIEN Work Phone: [facility] CI FMStart: 02-07-2025 End: 42-84-3205Zssnwj Rosangela OBRIEN Work Phone: [facility] CI FMStart: 02-07-2025 End: 45-73-0913olahbapsbwRGYGZJono Shay AvailableStart: 06-02-2024 End: 85-98-8785Mnogapvvi Result EncounterRadames Mart MD Work Phone: [facility] External Department UnsolicitedStart: 06-02-2024 End: 45-33-5407Rsrsdsicf Result EncounterRadames Mart MD Work Phone: noms External Department UnsolicitedStart: 06-01-2024 End: 50-59-1668Crfhnmtaa Result EncounterRadames Mart MD Work Phone: noms External Department UnsolicitedStart: 06-01-2024 End: 91-05-8690Urzmxfznm Result EncounterRadames Mart MD Work Phone: noms External Department UnsolicitedStart: 04-04-2023 End: 29-54-4162apnujaogbvLK DOCTOR MISCFacility:A1Kyywf: 02-05-2023 End: 31-83-8778zrzrqiawpnTI DOCTOR MISCFacility:G1Wjraf: 08-24-2022 End: 73-36-0087vscgzpnyenTpomlvw Ditty Other [facility] [employer] Other Start: 56-02-2283KUCA visit new patientCamjoseline Valencia [facility] GastroenterologyStart: 08-04-2022 End: 48-11-9785prgzgkvriyFJ DOCTOR MISCFacility:H6Zgtzj: 07-26-2022 End: 64-39-1742urerzsfhbxHT RADAMES MARTFacility:H1Mssrb: 05-03-2022 End: 31-88-5282ixihghlfsbUURIFJWKindred Hospital Dayton HospitalStart: 05-03-2022 End: 78-97-9167Oehsqsdkil hospital visit by physicianJosue Castro MD Work Phone: stAZ ORComment on above:PSA elevationStart: 04-23-2022 End: 84-02-7436ibktsygjogGLZUAFV [facility] HospitalStart: 04-23-2022 End: 54-89-5613ruimnvdwrsEEHUQO B [facility] HospitalStart: 04-23-2022 End: 37-04-2135Zrehsqwjxt hospital visit by physicianSta X-Ray [facility] RadiologyComment on above:ArrivedStart: 04-23-2022 End: 38-60-6550Dzhvutkgdc hospital visit by physicianSta Pat 1STAZ PRE-ADMIT TESTING Procedures DateProcedureProcedure DetailPerforming ClinicianStart: 38-12-2517YCSTF CULTURE 2Generic External Data ProviderStart: 06-30-5764GAMQU CULTURE 1Generic External Data ProviderStart: 78-21-8157CL CHEST 2Gaye Mart MD Work Phone: Start: 81-80-6543GV ABDOMEN PELVIS W Virgilio Mart MD Work Phone: Start: 09-67-8917WBH screeningDR DOCTOR MISCComment on above:Performed By: #### PSAD #### [facility] [address] [place] [address] Dr. Mireya Joyner: 86-73-3116PBP screeningDR DOCTOR MISCComment on above: Performed By: #### PSAD #### [facility] [address] [place] [address] Dr. Mireya Joyner: 90-96-4231OPE screeningDR DOCTOR MISCComment on above: Performed By: #### PSAD #### [facility] [address] [place] [address] Dr. Mireya Joyner: 50-74-5378Bhuiixmzjj exam chest 2 viewsNdysabel Rider MD Work Phone: Start: 14-83-1858Gxdueqnefcr panelNdysabel Rider MD Work Phone: Start: 11-82-7907Yfb routine ecg w/least 12 lds w/i&r Ndal Ashu Rider MD Work Phone: Start: 71-59-0866VrpeydjukajChdsb Hemmer PA Work Phone: Plan of Treatment DateCare ActivityDetailAuthorStart: 85-89-3427Owhglxsbp for malignant neoplasm of colonNOMS HealthcareStart: 11-25-2025 End: 16-91-8242Ueiwwuq encounter shvkogoby53/29/2025 2:00 PM EST Office Visit [facility] [place] [facility] [address] [place] [id number] Radames Mart MD [address] [place] [address] NOMVince Burgess MedinceStart: 09-30-2025 End: 56-78-2336Mlqkogu encounter gkdnynavf52/03/2025 11:00 AM EST Office Visit [facility] [place] [facility] [address] [place] [address] Irina Bowman PA [address] [place] [address] ArrivedNOMS [place] Burgess MedinceComment on above:ArrivedStart: 48-07-7215PURYS-19 Vaccine ( season)COVID-19 Vaccine ( season)NOMS HealthcareStart: 37-42-7139Odnzbnpdz vaccinationInfluenza Vaccine (#1)NOMS HealthcareStart: 02-07-2025 End: 69-76-5139Gfxcnvc encounter cnpejssyz01/13/2025 1:00 PM EDT Office Visit [facility] [address] [facility] [address] [place] [address] Irina Bowman, PA [address] [facility] [address] [place] [address] ArrivedNOMS CI FMComment on above:ArrivedStart: 83-33-5540Mtbpszjci vaccinationInfluenza Vaccine (#1)NOMS HealthcareStart: 24-51-6784Avkns panelLipidsBON PREMIER HEALTH ATRIUM MEDICAL CENTERStart: 40-33-0582Fikipwssv vaccinationFlu vaccine (Season Ended)[facility] CENTERStart: 05-03-2022 End: 22-66-5365Mfxoidilq to same day surgery wkuhut1305/03/2022 Surgery IP Unit Josue Castro MD [address] [facility] [address] [place], [place] [address] FUSION PROSTATE BIOPSY WITH ULTRASOUND MRI WAS AT [facility] ON [place] ORComment on above:FUSION PROSTATE BIOPSY WITH ULTRASOUND MRI WAS AT [facility] ON art: 05-03-2022 End: 24-73-4024Wdmxziixor bggqzlydioue81/06/2022 Anesthesia Event IP Unit Fish Rider MD [address] [place] [address] STABryant ORStart: 72-66-1506Ayirncbrqu hospital visit by shbytvapr11/06/2022 Hospital Encounter IP Unit Josue Castro MD [address] [facility] [address] [place] [address] JESSICA ORStart: 05-03-2022 End: 61-91-3747Mudsym prostate incisional any [facility] Centertart: 32-55-8570Goevspsveaqa 65+ years Vaccine (2 - PCV)Pneumococcal 65+ years Vaccine (2 - PCV)[facility]ENTERStart: 68-43-5884Vxoaedmri aortic aneurysm screeningAAA screenChildren's Hospital of The King's Daughtersart: 2002 Shingles vaccine (1 of 2)Shingles vaccine (1 of 2)[facility] CENTERStart: 49-27-9842Yvcceihfm for malignant neoplasm of colonR[facility]ERSIDE [facility]AL [facility] Start: 07-70-2736Cysaqfax specific antigen measurementProstate Specific Antigen (PSA) Screening or MonitoringChildren's Hospital of The King's Daughtersart: 03[birth year]-1992 DTaP/Tdap/Td Vaccines (2 - Td or Tdap)DTaP/Tdap/Td Vaccines (2 - Td or Tdap)[facility] JosephStart: 43-51-2794UTtN/Tdap/Td vaccine (1 - Tdap)DTaP/Tdap/Td vaccine (1 - Tdap)[facility] CENTERStart: 16-40-7741Iihgilakq C screening Hepatitis C screenSpotsylvania Regional Medical Center: 53-30-2455Vzmwixqbcy Screen Depression ScreenChildren's Hospital of The King's Daughtersart: 99-32-7143Uadvqr Wellness Visit (AWV)Annual Wellness Visit (AWV)[facility]ERVINE ASYLUMCameron & WildingStart: 1950 Screening for malignant neoplasm of colonNOMS HealthcareBLOOD CULTURE 1BLOOD CULTURE 1 Lab Routine 09/06/2025 10:14 PM EDTNOMS HealthcareBLOOD CULTURE 2BLOOD CULTURE 2 Lab Routine 09/06/2025 11:10 PM EDTNOMS HealthcareContinuous pulse oximetryPulse oximetry, continuous Respiratory Care Routine Every 4hr until discontinued starting 05/04/2022[facility]ITALC[facility] Wilding Work Phone: Comment on above:Every 4hr until discontinued starting 05/04/2022urgical PathologySurgical Pathology Lab Routine PSA elevation Release Upon Ordering for 1 Occurrences starting 05/03/2022[facility]ITALO[facility]othe[facility] Phone: Comment on above:Release Upon Ordering for 1 Occurrences starting 05/03/2022 End: 22-57-0392DMQDBSKM PATHOLOGY REPORTSURGICAL PATHOLOGY REPORT Lab Routine Once for 1 Occurrences starting 05/03/2022 until 05/03/2022[facility]ITAL[facility] Wild[facility] Work Phone: comment on above:Once for 1 Occurrences starting 05/03/2022 until 05/03/2022 Immunizations Immunization DateImmunizationNotesCare IvkgbaknNlvvsynz48-99-3295Jwgkkjds trivalent influenza vaccine, adjuvanted, preservative freeIrina Bowman PA Work Phone: noCoxHealthCqoosfnnwy39-59-0274Xzohwbwwn, High-dose Seasonal, Quadrivalent, Preservative FreeIrina Bowman PA Work Phone: NOCoxHealthPgexiqfton66-15-5763Qiovhhwusjkd Conjugate PCV 20 Irina Hemmer PA Work Phone: noCoxHealthBykkcscqpv31-99-9699esitxbwux virus vaccine, unspecified formulationYimien Hemmer PA Work Phone: NOCoxHealthAllniwscyn98-01-6422Xiccfivuj, Seasonal, Quadrivalent, AdjuvantedYimien Hemmer PA Work Phone: NOCoxHealthGvcenpwwgt29-84-9652Waezbnfab, Seasonal, Quadrivalent, AdjuvantedKaren Hemmer PA Work Phone: [facility]. JosephAmgkswclxs31-66-8479CFYHT-12, Pfizer Purple top, DILUTE for use, 12+ yrs, 30mcg/0.3mL doseSta [facility] Work Phone: [phone]-78, Pfizer Purple top, DILUTE for use, 12+ yrs, 30mcg/0.3mL doseSta [facility] Work Phone: [phone]-88, Pfizer Purple top, DILUTE for use, 12+ yrs, 30mcg/0.3mL doseSta [facility] Work Phone: [phone]g, high dose seasonal, preservative-freeKaren Hemmer PA Work Phone: [facility] JosephMlqjfbaueg19-42-5180Sqnmgblxr, High-dose Seasonal, Quadrivalent, Preservative FreeKaren Hemmer PA Work Phone: [facility]. JosephQkijzdiiii37-02-2990fsajim vaccine recombinant Irina Hemmer PA Work Phone: [facility]. JosephCexpramocg71-15-7993mqnwkqvfryzj polysaccharide vaccine, 23 valentKaren Hemmer PA Work Phone: [facility]. JosephSttfoneoxi18-02-7646hemazq vaccine recombinant Irina Hemmer PA Work Phone: [facility] JosephWcvyhwpbpw98-87-3014inpehuykc, high dose seasonal, preservative-freeKaren Hemmer PA Work Phone: [facility]. JosephRaslaygmvg64-25-9085Xlrkimaox, High-dose Seasonal, Quadrivalent, Preservative FreeKaren Hemmer PA Work Phone: [facility]. JosephHddvflfzxx18-09-5039cgecoxhcsjxx polysaccharide vaccine, 23 valentKaren Hemmer PA Work Phone: [facility]. JosephZsocklxtdx55-99-7106sunwuhvud, high dose seasonal, preservative-freeKaren Hemmer PA Work Phone: [facility]. JosephYrxuluxdhy44-89-7856wsrqawjrw, injectable, quadrivalent, contains preservativeKaren Hemmer PA Work Phone: [facility]. JosephQemwwwadej31-92-9114elccdnnpj, injectable, quadrivalent, preservative freeKaren Hemmer PA Work Phone: VibryntCoxHealthJfnfpsrkvv27-67-8357turuuhqbo virus vaccine, unspecified formulationKaren Hemmer PA Work Phone: VibryntCoxHealthIjjizqntja97-66-9944ijfiaszwz virus vaccine, unspecified formulationKaren Hemmer PA Work Phone: [facility] JosephOlkegmacxo88-96-0509yljjlleoi virus vaccine, unspecified formulationKaren Hemmer PA Work Phone: VibryntCoxHealthVqunpdfnia09-69-1152giefpzmcfmjs polysaccharide vaccine, 23 valentKaren Hemmer PA Work Phone: VibryntCoxHealthDjkwdlvigx98-55-2846egbouwg toxoid, reduced diphtheria toxoid, and acellular pertussis vaccine, adsorbedKaren Hemmer PA Work Phone: [facility] Payers DatePayer CategoryPayerPolicy [id number] Health InsuranceAARP .[id number] 2017MedicareMEDICARE [id number] [id number] Health Insurance [id number] [id number] 2.16.840.1.593066.3.57[id number] 2.16.840.1.464679.3.57[id number] 2.16840.1.998893.3.57[id number] 2.16.840.1.771888.3.57[id number] 2.16.840.1.856061.3.57[id number] 2.16.840.1.868859.3.57[id number] 2.16.840.1.452075.3.57[id number] 2.16.840.1.383375.3.57[id number] 2.16.840.1.308376.3.57[id number] 2.16.840.1.047786.3.57[id number] 2.16840.1.626664.3.57[id number] 2.16.840.1.914499.3.579.2.1259 Social History DateTypeDetailFacilityStart: 04-23-2022 End: 78-73-3318Fefcvzt smoking status NHISEx-smokerAdama Materials Phone: End: 36-43-2479Zrxkkjs of tobacco useCurrent smokerPHOENIX CHILDR[facility]'S [facility] [employer] Phone: start: 04-23-2022 End: 40-81-6437Puxrohp use and exposureSmokeless tobacco non-userAdama Materials Phone: start: 04-23-2022 End: 59-98-5900Xmegemr intakeCurrent drinker of alcohol (finding)[facility] [employer] Phone: start: 04-23-2022 End: 30-33-5203Zqvfqjr intakePHOENIX CHILDREN'S HOSPITAL [employer] Phone: start: 11-35-4576Uqs Assigned At BirthNot on fileAdama Materials Phone: start: 04-23-2022 End: 27-17-2455Kjamwfkg to SARS-CoV-2 (event)Not sureAdama Materials Phone: start: 05-23-2024 End: 11-28-9351Ovb [facility]igned [facility] [employer] Other History of tobacco useCigarette SmokerNOHI Healthcare Start: 21-43-2520Azawwxc Commentcaffeine 1-2 cups per dayGUNNISON VALLEY HOSPITAL HealthcareStart: 12-21-2189UusYnneKMKG Healthcare Functional Status XpucQwolkcxyooIcowxfPttdywnp53-97-5648Eistlqb Health Questionnaire 2 item (PHQ- 2) [Reported][facility]. JosephGseuidusqe71-94-1197Mmlhdgl Health Questionnaire 2 item (PHQ- 2) [Reported][facility] Clinical Notes 04-23-2022 to 09-30-2025 Note Date & EgwzWchpUhsuiykw68-36-7661 History of Present illness Narrative* MICAH Taylor - 09/30/2025 11:00 AM EST Images from the original note were not included. Subjective Patient ID: Brian Quezada is a 75 y.o. male who presents for TB and long-term follow up. Flowsheet Row Patient Outreach from 09/27/2025 in [facility] with Michela Palmer LPN Hospital Information ED, Hospital or Senior Care Facility Discharge? Senior Care Facility Patient has been contacted within two business days of discharge Yes Have two attempts been made to contact the patient within two business days of being discharged? Yes Discharge Date 09/25/25 Discharged To: Home Setting Senior Care Facilities [facility] Engagement Admission Date 09/17/25 Medications Discharge medications reviewed and reconciled from hospital? No Prescription Comments Xenia states that she is looking at both the meds from [facility] list and from the [place] I advised her to bring in the med list from [facility] and [facility] to his appt on tuesday Is the patient taking all medications as directed (includes completed medication regime)? Yes Appointments Does the patient have a primary care provider? Yes Nursing Interventions Verified appointment date/time/provider [09/30-Irina Bowman] Self Management Does patient have home health? no [ opted out] Patient Teaching Does the patient have access to their discharge instructions? Yes What is the patient's perception of their health status since discharge? Same Wrap Up Dx. A-fib, CAD, COPD exacerbation, hypoxic respiratory failure. Here with his for a follow up today. States he is not feeling too bad today, 70% good and 30% like crap. Did PT while he was inpatient. Thinks it was too short of a program, was at [place]. Has completed the Prednisone. States cannot afford to continue the Eliquis. Wants to go back to the Plavix. States it worked wellfor him for years and he would like to just continue with the Plavix. Did have one BM the whole time he was in [facility]. Only one while at [place]. States has had two BM's since being home. Did get a bedsore while at [facility], using Silvex Wound Gel. Per , it is healing. Couldn't Tolerate the BiPAP. Using the Oxygen only at this time. [facility] Over the past 2 weeks, how often have you been bothered by any of the following problems? Little interest or pleasure in doing things: Not at all Feeling down, depressed, or hopeless: Not at all Patient Health Questionnaire-2 Score: 0 Current Outpatient Medications on File Prior to Visit Medication Sig Dispense Refill ipratropium-albuterol (Duo-Neb) 0.5-2.5 mg/3 mL nebulizer solution Take 3 mL by nebulization 4 (four) times a day as needed for wheezing or shortness of breath 150 mL 5 nitroglycerin (Nitrostat) 0.[address] 0.4 mg under the tongue every 5 (five) minutes if needed for chest pain [DISCONTINUED] albuterol (2.5 MG/3ML) 0.083% nebulizer solution Take 2.5 mg by nebulization every 6(six) hours if needed for wheezing or shortness of breath [DISCONTINUED] mirtazapine (Remeron) 15 MG tablet Take 15 mg by mouth at bedtime clopidogrel (Plavix) 75 MG tablet 1 (one) time each day at the same time. dilTIAZem (Cardizem) 60 MG immediate release tablet Take 30 mg by mouth in the morning and 30 mg atnoon and 30 mg in the evening and 30 mg before bedtime. doxazosin (Cardura) 2 MG tablet Take 2 mg by mouth at bedtime ezetimibe-simvastatin (Vytorin) 10-40 MG tablet 1 (one) time each day at the same time. mirtazapine (Remeron) 30 MG tablet 1 tablet Orally at bedtime 90 tablet 3 oxygen (O2) gas Inhale 2 L/min continuously. relugolix (Orgovyx) 120 MG tablet Take 120 mg by mouth Daily. (Patient not taking: Reported on 09/30/2025) Respiratory Therapy Supplies (Nebulizer/Tubing/Mouthpiece) kit 1 kit Daily 1 kit 0 [DISCONTINUED] Qtmjvrr-Aytuuhmjydh-Ftjemutijw (Breztri Aerosphere) 160-9-4.8 MCG/ACT aerosol Inhale2 puffs in the morning and 2 puffs before bedtime. (Patient not taking: Reported on 09/30/2025) 10.7g 5 [DISCONTINUED] Eliquis 5 MG tablet Take 5 mg by mouth in the morning and 5 mg before bedtime. (Patient not taking: Reported on 09/30/2025) [DISCONTINUED] linaCLOtide (Linzess) 145 MCG capsule Take 1 capsule (145 mcg) by mouth in the morning. Take before meals. Do not crush or chew.. 30 capsule 11 [DISCONTINUED] omeprazole OTC (PriLOSEC OTC) 20 MG EC tablet Take 20 mg by mouth in the morning. Take before meals. [DISCONTINUED] prazosin (Minipress) 5 MG capsule Take 5 mg by mouth at bedtime (Patient not taking:Reported on 09/30/2025) [DISCONTINUED] triamcinolone (Nasacort Allergy 24HR) 55 MCG/ACT nasal inhaler 1 (one) time each dayat the same time. (Patient not taking: Reported on 09/30/2025) No current facility-administered medications on file prior to visit. I have reviewed and reconciled the history and medication list with the patient today. Allergies Allergen Reactions Dust Mite Extract Social History Tobacco Use Smoking status: Former Types: Cigarettes Smokeless tobacco: Never Vaping Use Vaping status: Never Used Substance Use Topics Alcohol use: Yes Comment: caffeine 1-2 cups per day No family history on file. Past Medical History: Diagnosis Date Asthma (HCC) COPD (chronic obstructive pulmonary disease) (HCC) Coronary atherosclerosis COVID-19 Depression GERD (gastroesophageal reflux disease) H/O chronic ischemic heart disease Heart disease Hypercholesteremia Primary prostate adenocarcinoma (HCC) Primary prostate adenocarcinoma (HCC) Past Surgical History: Procedure Laterality Date APPENDECTOMY CORONARY ANGIOPLASTY WITH STENT PLACEMENT 2005 OTHER SURGICAL HISTORY 2017 evacuation hematoma right thigh Visit Vitals BP 100/62 Pulse 84 Resp 16 Ht 5' 10 Wt 184 lb SpO2 93% BMI 26.40 kg/m Smoking Status Former BSA 2.03 m Review of Systems Constitutional: Positive for fatigue. Negative for chills and fever. Respiratory: Positive for shortness of breath. Negative for cough and wheezing. Cardiovascular: Negative for chest pain, palpitations and leg swelling. Gastrointestinal: Positive for constipation. Negative for abdominal pain, diarrhea, nausea and vomiting. Skin: Negative for rash. Psychiatric/Behavioral: The patient is nervous/anxious. Objective Physical Exam Constitutional: General: He is not in acute distress. Appearance: He is ill-appearing (Chronically). HENT: Head: Normocephalic and atraumatic. Eyes: General: No scleral icterus. Cardiovascular: Rate and Rhythm: Normal rate and regular rhythm. Heart sounds: No murmur heard. Pulmonary: Effort: No respiratory distress. Breath sounds: Decreased air movement present. Decreased breath sounds and wheezing (Inspiratory, mild) present. No rhonchi or rales. Comments: On O2 via nasal cannula. Markedly diminished breath sounds in the lung bases. Musculoskeletal: General: No swelling. Skin: General: Skin is warm and dry. Neurological: General: No focal deficit present. Mental Status: He is alert and oriented to person, place, and time. Gait: Gait abnormal (Wheelchair). Psychiatric: Mood and Affect: Mood normal. Behavior: Behavior normal. Assessment/Plan Diagnoses and all orders for this visit: Paroxysmal atrial fibrillation (HCC) RRR in the office today. Converted while in patient. Currently on Cardizem four times a day, not onBeta Alex due to concern regarding bronchospasm. They will check with Cardiology to be sure going back to Plavix after finishing the Eliquis is ok to do. Advised them that the two are not equivalent, but that it is understandable that Eliquis is too expensive for them to continue, one prescription costing > $400. Do not change Cardizem until he follows with Cardiology, taking four times a day currently. Atherosclerosis of [place] coronary artery of [place] heart without angina pectoris Continue nitroglycerin as needed for acute chest pain. Follow up with Cardiology as scheduled. Centrilobular emphysema (HCC) Continue Duo-nebs as needed. Supplemental oxygen. Acute respiratory failure with hypoxia (HCC) Symptoms are improving since being hospitalized. Continues with marked limitations. Chronic obstructive pulmonary disease, unspecified COPD type (HCC) - Bhhrocf-Cyabczbtumq-Ckrexxghdj (Breztri Aerosphere) 160-9-4.8 MCG/ACT aerosol; Inhale 2 puffs in the morning and 2 puffs before bedtime. Encouraged him to continue the Duo-nebs as needed. Ok to continue Breztri. Was given a few different inhalers at the hospital. However, the Breztri will be easier than using multiple inhalers. He agrees he would like to continue with just one inhaler. Oxygen dependent Continues on O2 via nasal cannula. He cannot tolerate the BiPAP and is not using one. Anxiety - ALPRAZolam (Xanax) 0.25 MG tablet; Take 1 tablet (0.25 mg) by mouth Daily as needed for anxiety Does have some panic moments. Encouraged him to take the xanax only as needed. Cautioned him regarding potentially habit forming nature of this medication. OARRS report generated and reviewed. Gastroesophageal reflux disease without esophagitis - pantoprazole (ProtoNix) 40 MG EC tablet; Take 1 tablet (40 mg) by mouth in the morning. Do not crush, chew, or split. Due to wanting to go back on Plavix, will change Omeprazole to Pantoprazole. Chronic respiratory failure with hypoxia (HCC) No rhonchi noted on exam today. Continue supplemental oxygen. Per patient's , Cardiology is to determine if pt needs to see Pulmonology. Major depressive disorder, recurrent, moderate (HCC) Continue Remeron at the 30 mg dosage. Depression is stable at this time. Chronic idiopathic constipation Cannot afford Linzess. Advised once they finish the Linzess they have at home, they can change him back to Colace as needed. Encouraged him tos adilson hydrated. Majority of today's visit today was spent on Medication Reconciliation and answering questions regarding past, current, and new medications. The patient was seen today in follow up of recent hospital stay. All available hospital records were reviewed and discussed with the patient. Hospital discharge meds were reviewed. Any changes are asnoted. Summary of hospital stay as follows: Patient was seen at [facility] ER on 09/07/2025. Was admitted for paroxysmal atrial fibrillation, COPD exacerbation, CAD, and hypoxic respiratory failure. Right basilar infiltrate was seen on CT with extensive upper lobe emphysema. Was given Albuterol, Atrovent, Solu-Medrol, Ceftriaxone and Doxycycline. While inpatient, he developed A fib with RVR, wasplaced on Cardizem drip, digoxin, did convert overnight. Was told to continue Cardizem 30 mg QID. Was on Lovenox. MRI brain showed mild to moderate chronic microvascular changes, no acute pathology. Hallucinationsresolved with improvement in hypercapnia and hypoxia. Had an ECHO completed, EF 70-75%, see hospital records for full report. TSH while inpatient was mildly low. He was discharged on 09/17/2025. Was on Budesonide BID, PEP, vest therapy, hypertonic saline nebs, Atrovent QID, and Diamox daily. Was changed to Eliquis on discharge. Told to continue BiPAP. Ativan and Diazepam were discontinued, Xanax was given. Follow up with MICAH Redmond or their team in 1 month (on 10/30/[address] Mart). documented in this encounterMosaic Life Care at St. [id number] Note From: Drea Chopra (Urology Clinical [place] ([facility])) Sent: 07/31/2025 14:24:29 EDT Subject: General Message Caller Name: EVON BRIAN Mendez; Caller Number: H , M Pt called stated had not received medication Orgovyx sent to [facility]. Spoke with Pharmacist Arlette, who stated she was waiting for insurance coverage ID # and pt should be receiving medication soon by delivery. Pt called and notified. [facility] [id number] Note From: Drea Chopra Sent: 07/17/2025 08:14:01 EDT Subject: General Message Caller Name: KYLER QUEZADANY Vanessa; Caller Number: H , M Refill request Orgovyx (Relugolix) 120mg tablet, 1 tablet orally once a day, #30, 11 refills. Sent to [facility] ([facility]). Needs to be seen in office in 3-4 months. Pt next appointment must kept for more refills per Dr. Castro.[facility] [id number] Telephone encounter Note* Telephone Encounter - Lolita Mccoy - 05/29/2025 1:52 PM EDT Lvm 3rd attempt to contact no contact letter sent [facility] [phone] Miscellaneous Notes* Telephone Encounter - Lolita Infantejohn - 05/29/2025 1:52 PM EDT Lvm 3rd attempt to contact no contact letter sent * Telephone Encounter - Lolita Allisonleif - 05/20/2025 9:28 AM EDT Patient stated they will call back and schedule within the next couple of days * Telephone Encounter - Lolita Infantemeryl - 05/13/2025 3:38 PM EDT Paitent is overdue for mawv - lvm trying to schedule appt documented in this encounterMosaic Life Care at St. [phone] Telephone encounter Note* Telephone Encounter - Lolita Allisonleif - 05/20/2025 9:28 AM EDT Patient stated they will call back and schedule within the next couple of days [facility] [phone] Telephone encounter Note* Telephone Encounter - Lolita Infantejohn - 05/13/2025 3:38 PM EDT Paitent is overdue for mawv - lvm trying to schedule [facility]t [id number] Evaluation note* Encounter Date Diagnosis Assessment Notes Treatment Notes Treatment Clinical Notes Jul, Abdominal distension (ICD-10 - R 14.0) Jul,onstipation (ICD-10 - K59.00)OBTAIN COLONOSCOPY FROM [facility] MAY USE LINZESS NEEDED F/U PRN [employer] Other 06-06-2022 Hospital Discharge instructions* Instructions* Josue Castro MD - 05/03/2022 Kyler, Everything went excellent today. Biopsy results will come back in 1 to 1.5 weeks. We will sit down and discuss this in my office. Please resume your Plavix on Tuesday. Okay to resume all other homemedications today. Regular activity. No restrictions. Regular diet. Best, Dr. Josue Castro MD documented in this encounterB[facility]ITALIAS[facility] Work Phone: 1(927) 340-154605-27-2022 History of Present illness Narrative* Erin Mclaughlin, BUILDING CERTIFIER - DISABILITY EXAMINER - 04/23/2022 8:00 AM EDT PAT Progress Note Pt Name: Brian Quezada Birthdate: 1950 Date of evaluation: 04/23/2022 [x] Called to PAT. I spoke to the patient, Brian Quezada, a 71 y.o. male, who is scheduled for an upcoming FUSION PROSTATE BIOPSY WITH ULTRASOUND MRI WAS AT [facility] ON 03/12 by Josue Castro MD for DX ELEVATED PSA on [...] ms QTc Calculation (Bazett) 410 ms P Grant 88 degrees R Grant 42 degrees T Grant 81 degrees CBC Collection Time: 04/23/22 9:11 [...] 04/23/2022 at 1:55 PM documented [facility] [employer] Phone: evaluation note* Diagnosis PSA elevation Elevated prostate specific antigen (PSA) documented in this encounter [facility] [employer] Phone: evaljwlnkr note* Diagnosis Paroxysmal atrial fibrillation (HCC)- Primary Atrial fibrillation Atherosclerosis of [place] coronary artery of [place] heart without angina pectoris Centrilobular emphysema (HCC) Acute respiratory failure with hypoxia (HCC) Chronic obstructive pulmonary disease, unspecified COPD type (HCC) Oxygen dependent Dependence on supplemental oxygen Anxiety Anxiety state, unspecified Gastroesophageal reflux disease without esophagitis Esophageal reflux Chronic respiratory failure with hypoxia (HCC) Major depressive disorder, recurrent, moderate (HCC) Major depressive disorder, recurrent episode, moderate Chronic idiopathic constipation Unspecified constipation documented in this encounter [facility] Narrative - Reported* Type Description Date Medical History Hypercholesterolemia Medical HistoryHeart diseaseMedical HistoryAnxietyMedical HistoryDepression Medical HistoryGERD (gastroesophageal reflux disease)Medical HistoryCOPD (chronic obstructive pulmonary disease)Medical HistoryemphysemaMedical History lung chest noduleMedical Historyprostate cancerSurgical HistoryherniaSurgical Historycardiac stentSurgical Historywisdom teethHospitalization Historysee above [employer] Other Reason for visit Narrative* Auth/CertSpecialty Diagnoses / ProceduresReferred By ContactReferred To Contact Diagnoses Elevated PSA DX ELEVATED PSA Procedures IN BIOPSY OF PROSTATE,INCISIONAL FUSION PROSTATE BIOPSY WITH ULTRASOUND MRI WAS AT [facility] ON 03/12 Josue Castro MD [address] [place] [address] [facility] [employer] [address] [place] [address] Referral IDStatusReasonStart DateExpiration DateVisits RequestedVisits [id number] [employer] Work Phone: Summary Purpose Family History No [...] section and content) DATE CREATED AUTHOR 02/05/2022 [facility] Commercial Relief Driver DATE CREATED AUTHOR AUTHOR'S ORGANIZ ATION 05/07/2022 [facility] DATE CREATED AUTHOR AUTHOR'S ORGANIZ ATION 04/08/2023 [facility] DATE CREATED AUTHOR AUTHOR'S ORGANIZ ATION 08/02/2025 [facility] DATE CREATED AUTHOR AUTHOR'S ORGANIZ ATION 10/01/2025 [facility] EPIC Care Teams (unrecognized sec tion and content) Team MemberRelationshipSpecialtyStart DateEnd Date Radames Mart MD [address] [place] [address] PCP - GeneralInternal Medicine04/23/22Team MemberRelationshipSpecialtyStart Date End Date Radames Mart MD [address] [place] [address] PCP - GeneralInternal Medicine04/23/22Team MemberRelationshipSpecialtyStart Date End Date Radames Mart MD [address] [place] [address] [facility]CP - [facility] Cent[facility]04/23/22Team MemberRelationshipSpecialtyStart Date End Date Radames Mart MD [address] [place] [address] PCP - [facility]04/21/23 Radames Mart MD [address] [place] [address] [facility] - [facility]06/16/23Team MemberRelationshipSpecialtyStart Date End Date Radames Mart MD [address] [place] [address] PCP - [facility]04/21/23 Radames Mart MD [address] [place] [address] [facility] - [facility]06/16/23Team MemberRelationshipSpecialtyStart Date End Date Radames Mart MD [address] [place] [address] PCP - [facility]04/21/23 Radames Mart MD [address] [place] [address] PCP - [facility]06/16/23Team MemberRelationshipSpecialtyStart Date End Date Radames Mart MD [address] [place] [address] PCP - [facility]04/21/23 Radames Mart MD [address] [facility] [address] [place] [address] [facility]06/16/23Team MemberRelationshipSpecialtyStart Date End Date Radames Mart MD [address] [facility] [address] [place] [address] [facility]04/21/23 Radames Mart MD [address] [facility] [address] [place] [address] [facility]06/16/23Team MemberRelationshipSpecialtyStart Date End Date Radames Mart MD [address] [facility] [address] [place] [address] [facility]04/21/23 Radames Mart MD [address] [facility] [address] [place] [address] [facility]06/16/23 Scheduled Active and Recently Administ ered Medications (unrecognized section and content) Medication Order//04/2022 ceFAZolin (ANCEF) 2000 mg in dextrose 5 % 50 mL IVPB (COMPLETED) 2,000 mg, IntraVENous, ONCE, 1 dose, On Tue05/03/22 at 1130, Antimicrobial Indications: Surgical Prophylaxis, Pre-op (day of surgery), STAT * 1120 (Given - Provider: Luna Barfield, BUILDING CERTIFIER - SUPERVISOR [employer]) sodium chloride flush 0.9 % injection 5-40 [...] * 1115 (NoRateChange - Provider: FAITH Stanton SUPERVISOR [employer]) * 1133 (Rate/Dose Change - Provider: FAITH Stanton SUPERVISOR [employer]) * 1215 (Stopped - Provider: Drea Keyes RN) Medication Order/ 0.9 % sodium chloride infusion IntraVENous, at [...] BE BASED ON THE PRIMARY CLINICAL RECORDS. [employer] provides no warranty or guarantee of the accuracy or completeness of information in this document.
--- NOTE | 2025-10-17 19:09 | PC.NURSE ---
i walked into this patient to find this patient awake and alert sitting upright the bed with BiPaP on, this patient complains of being shortness of breath for a while . this patient lives at home with his , Dr Bull at bedside talking this patient
--- OUTSIDE RECORDS SUMMARY | 2025-10-17 19:09 | XMS_ITS | Clinical Summary ---
Author Organization [facility] Address [address] [place] [address] Care Team Providers Care Store Loss Prevention Manager Name Role Phone Radames Mart MD Unavailable [phone] Radames Mart MD Primary Care Provider [phone] Allergies Active AllergyReactionsCriticalityNoted DateCommentsDust Mite Zekaqfs2409/30/2025 Medications MedicationSigDispense QuantityRefillsLast FilledStart DateEnd DateStatus clopidogrel (Plavix) 75 MG tablet 1 (one) time each day at the same time.Active ezetimibe-simvastatin (Vytorin) 10-40 MG tablet 1 (one) time each day at the same time.Active oxygen (O2) gas Inhale 2 L/min continuously.Active mirtazapine (Remeron) 30 MG tablet Indications:Insomnia due to medical condition1 tablet Orally at bedtime 90 tablet 3Active doxazosin (Cardura) 2 MG tablet Take 2 mg by mouth at efcsqvc01/08/2024Active ipratropium-albuterol (Duo-Neb) 0.5-2.5 mg/3 mL nebulizer solution Indications:Centrilobular emphysema (HCC)Take 3 mL by nebulization 4 (four) times a day as needed for wheezing or shortness of breath 150 mL 5Active Respiratory Therapy Supplies (Nebulizer/Tubing/Mouthpiece) kit Indications:Centrilobular emphysema (HCC)1 kit Daily 1 kit 5Active dilTIAZem (Cardizem) 60 MG immediate release tablet Take 30 mg by mouth in the morning and 30 mg at noon and 30 mg in the evening and 30 mg before bedtime.Active nitroglycerin (Nitrostat) 0.[address] 0.4 mg under the tongue every 5 (five) minutes if needed for chest pain 09/05/2025tive relugolix (Orgovyx) 120 MG tablet Take 120 mg by mouth Daily.07/17/2025tive Ekwrncu-Zqhhewlthgw-Hawywsmomz (Breztri Aerosphere) 160-9-4.8 MCG/ACT aerosol Indications:Chronic obstructive pulmonary disease, unspecified COPD type (HCC) Inhale 2 puffs in the morning and 2 puffs before bedtime.09/30/2025tive ALPRAZolam (Xanax) 0.25 MG tablet Indications:AnxietyTake 1 tablet (0.25 mg) by mouth Daily as needed for anxiety 30 tablet tive pantoprazole (ProtoNix) 40 MG EC tablet Indications:Gastroesophageal reflux disease without esophagitisTake 1 tablet (40 mg) by mouth in the morning. Do not crush, chew, or split. 90 tablet tive triamcinolone (Nasacort Allergy 24HR) 55 MCG/ACT nasal inhaler 1 (one) time each day at the same time.09/30/2025Discontinued(Therapy completed) linaCLOtide (Linzess) 145 MCG capsule Indications:Chronic idiopathic constipationTake 1 capsule (145 mcg) by mouth in the morning. Take before meals. Do not crush or chew.. 30 capsule 110Discontinued(Cost of medication) omeprazole OTC (PriLOSEC OTC) 20 MG EC tablet Take 20 mg by mouth in the morning. Take before meals. Discontinued prazosin (Minipress) 5 MG capsule Take 5 mg by mouth at jlhwrqg0909/30/2025Discontinued Mugxdvk-Ofexjuhgjru-Yvhabhlqlc (Breztri Aerosphere) 160-9-4.8 MCG/ACT aerosol Indications:Chronic obstructive pulmonary disease, unspecified COPD type (HCC) Inhale 2 puffs in the morning and 2 puffs before bedtime. 10.7 g Discontinued(Reorder) albuterol (2.5 MG/3ML) 0.083% nebulizer solution Take 2.5 mg by nebulization every 6 (six) hours if needed for wheezing or shortness of vidfsc18Discontinued Eliquis 5 MG tablet Take 5 mg by mouth in the morning and 5 mg before bedtime. Discontinued(Cost of medication) mirtazapine (Remeron) 15 MG tablet Take 15 mg by mouth at qfgwuxn50Discontinued(Therapy completed) Active Problems ProblemNoted DateDiagnosed DateChronic post-traumatic stress disorder (PTSD) after doitcc9209/30/2025 Overview (09/30/2025): Mar 18, 2025 Entered By: BHARAT CROWDER Comment: 50% Major depressive disorder, recurrent, ltvvqluu25/03/6903Xfosazcv68/03/2025 Paroxysmal atrial mkqczcgfiwvm90/03/2025hronic respiratory mulacns3509/30/2025 Exposure to potentially hazardous yqotnivjr11/13/2025ge-related nuclear cataract, ruwtlzsmx82/02/1193Fnwhycdhchussf34/02/6528Doolkzu81/19/2023 Centrilobular nlwyxkdhy93/19/2023hronic obstructive pulmonary pqzenop8006/15/2023 Aumbjdidyjiw41/19/2023oronary ganiymbyfcslisg29/19/2023Elevated PSA06/15/2023 GERD (gastroesophageal reflux disease)06/15/2023Lung kdvjjc8906/15/2023Malignant tumor of lggazvqb51/19/2023Nocturnal leg prgchu4506/15/2023Oxygen dependent 06/15/2023eripheral vascular unhfztv2306/15/2023ure hypercholesterolemia 06/15/2023History of colonic unrqhy0102/26/2022ramp in lower leg associated with rest06/27/2018 Encounters DateTypeDepartmentCare EsqzPbiwzviouoj21/19/2025Telephone [facility] [address] [place] [address] Radames Mart MD request for home veoxri97/14/2025Patient Outreach [facility] [address] [place] [address] Michela Palmer LPN 10/03/2025bstract [facility] [place] [address] [place] [address] Radames Mart MD 10/01/2025bstract [facility] [place] [place] [address] Radames Mart MD 09/30/2025 11:00 AM ESTOffice Visit [facility] [place] [address] [place] [address] Irina Tillman PA Paroxysmal atrial fibrillation (HCC) (Primary Dx); Atherosclerosis of [place] coronary artery of [place] heart without angina pectoris; Centrilobular emphysema (HCC); Acute respiratory failure with hypoxia (HCC); Chronic obstructive pulmonary disease, unspecified COPD type (HCC); Oxygen dependent; Anxiety; Gastroesophageal reflux disease without esophagitis; Chronic respiratory failure with hypoxia (HCC); Major depressive disorder, recurrent, moderate (HCC); Chronic idiopathic flrppnzutfwg10/03/2025amboo flowsheet [facility] [place] [address] [place] [address] Irina Tillman PA 09/30/20259808Uxpuhv05/31/2025Patient Outreach [facility] [address] [place] [address] Michela Palmer LPN 09/27/2025Patient Outreach [facility] [address] [place] [address] Michela Palmer LPN 09/19/2025Patient Outreach [facility] [address] [place] [address] Michela Palmer LPN 09/06/2025linisync Result Encounter [facility] External Department Unsolicited Provider, Generic External Data from Last 3 Months Immunizations ImmunizationAdministration DatesNext DueInfluenza, High Dose Seasonal, Preservative Free09/20/2020,10/31/2019,09/29/2017Influenza, High-dose Seasonal, Quadrivalent, Preservative Free02/03/2024,09/20/2020,10/31/2019Influenza, Seasonal, Quadrivalent, Cvpxxwemro73/22/2022,02/12/2022Influenza, Unspecified 09/06/2015,08/28/2014,11/08/2013Influenza, injectable, pspravtoucyf46/18/2016 Influenza, injectable, quadrivalent, preservative free09/14/2016Influenza, trivalent, /01/2025Pfizer Purple Cap SARS-CoV-2 Vaccination 02/02/2022,01/29/2021,1Pneumococcal Conjugate PCV Pneumococcal Polysaccharide GSJC4396,05/31/2019,10/28/2012Tdap04/11/1991 Zoster, Anrzudexiqm54/29/2020,01/28/2020 Social History Tobacco UseTypesPacks/DayYears UsedDateSmoking Tobacco: FormerCigarettes Smokeless Tobacco: Never Tobacco Cessation:Counseling Given: Not Answered Alcohol UseStandard Drinks/WeekCommentsYes0 (1 standard drink = 0.6 oz pure alcohol)caffeine 1-2 cups per dayPHQ-2AnswerDate RecordedPatient Health Questionnaire-2 Vynln77211/30/2024Sex and Gender InformationValueDate RecordedSex Assigned at BirthNot on fileLegal AjxUwru3302/09/2023 7:16 PM EDTGender Identity Not on fileSexual OrientationNot on file Last Filed Vital Signs Vital SignReadingTime TakenCommentsBlood Lbybrzsx166/6211 11:19 AM EST Kweiv271509/30/2025 11:19 AM NMTTdchsnlrvny91.4 ??C (99.3 ??F)02/07/2025 1:14 PM EDTRespiratory Ptea232011/30/2024 11:19 AM ESTOxygen Yqufybqfrw05%09/30/2025 11:19 AM ESTInhaled Oxygen Concentration--Ouckrt79.5 kg (184 lb)09/30/2025 11:19 AM KAHHvkccn421.8 cm (5' 10 )09/30/2025 11:19 AM ESTBody Mass Index26. 11:19 AM EST Plan of Treatment DateTypeDepartmentCare Team (Latest Contact Info)Xeeyqmszmql53/29/2025 2:00 PM ESTOffice Visit [facility] [place] [facility] [address] [facility] [address] [place] [address] Radames Mart MD [address] [facility] [address] [place] [address] Health MaintenanceDue DateLast DoneCommentsCT Kxgiynltrpvd1952FIT-DNA 1950FIT1950FOBT1950 7478Gvgbwekcksvfc1952OVID-19 Vaccine ( season)503/06/2022, 01/29/2021, 01/08/2021olonoscopy /05/2022, 10/13/2015Colorectal Cancer Kjrbetiye70/07/2032 Pneumococcal Vaccine: 65+ LntkrOxymoimaw28/08/2024, 01/28/2020, 05/31/2019, Additional history existsInfluenza UptoofgJhqxkdunc30/01/2025, 02/03/2024, 10/19/2022, Additional history exists Procedures Procedure NamePriorityDate/TimeAssociated DiagnosisCommentsBLOOD CULTURE 2 Cnnkbzf7509/06/2025 11:10 PM EDT BLOOD CULTURE 6Mchrxcq08/10/2025 10:14 PM EDT RXBRKNMGQICPpavdhf22/07/2022 12:00 PM EDT Personal history of colonic [...] 11:10 PM EDT1 11:13 PM EDT Narrative [facility] - 09/12/2025 3:05 PM EDT Authorizing ProviderResult TypeResult StatusGeneric External Data ProviderLAB BLOOD ORDERABLESFinal ResultPerforming OrganizationAddressty/State/ZIP Code Phone Number [facility] * BLOOD CULTURE 1 (09/06/2025 10:14 PM EDT)ComponentValueRef RangeTest Method Analysis TimePerformed AtPathologist SignatureBLOOD CULTURE 1 ??Blood Culture 1 NG5D NO GROWTH AT 5 DAYS.^NO GROWTH AT 5 DAYS. TBHSpecimen (Source)Anatomical Location / LateralityCollection Method / Volume Collection TimeReceived Time09/06/2025 10:14 PM EDT1 10:47 PM EDT Narrative [facility] - 09/12/2025 3:04 PM EDT Authorizing ProviderResult TypeResult StatusGeneric External Data ProviderLAB BLOOD ORDERABLESFinal ResultPerforming OrganizationAddressCity/State/ZIP Code Phone Number [facility] * Colonoscopy (03/04/2022 12:00 PM EDT)Anatomical RegionLateralityModality EndoscopySpecimen (Source)Anatomical Location / LateralityCollection Method / VolumeCollection TimeReceived Time03/04/2022 12:00 PM EDT Narrative 03/04/2022 12:00 PM EDT PERFORMED AT [facility] LOCATION:[id number] Procedure Note CONVERSION, GENERIC - 06/08/2023 PERFORMED AT [facility] LOCATION:[id number] Authorizing ProviderResult TypeResult StatusIsh Kinsey MDENDOSCOPY PROCEDURE ORDERABLESFinal Result from Last 3 Months or Most Recently Relevant to Health Maintenance Insurance Care Teams Team MemberRelationshipSpecialtyStart DateEnd Radames Mart MD [address] [place] [address] PCP - [facility]04/21/23 Radames Mart MD [address] [place] [address] PCP - GeneralInternal Medicine06/16/23
--- OUTSIDE RECORDS SUMMARY | 2025-10-17 19:09 | XMS_ITS | Clinical Summary ---
Author Organization [facility] Address [address], [address] [place] [address] Care Team Providers Care Signal Worker Helper Name Role Phone Radames Mart MD Primary Care Provider [phone] Allergies No known active allergies Medications MedicationSigDispense [...] InformationValueDate RecordedSex Assigned at BirthNot on fileLegal ZlqPoqt2201/07/2013 6:40 PM EST Gender IdentityNot on fileSexual OrientationNot on file Last Filed Vital Signs Vital SignReadingTime TakenCommentsBlood Gbvehwuu494/8906 12:15 PM EDT Fqqlk4097 12:15 PM JGSFhnkjmaquya28.8 ??C (98.2 ??F)05/03/2022 12:15 PM EDTRespiratory Gzev4351 12:15 PM EDTOxygen Lwjkakftqt36%05/03/2022 12:15 PM EDTInhaled Oxygen Concentration--Mwdkpd36.6 kg (160 lb)05/03/2022 10:06 AM PHUXxdjzm746.8 cm (5' 10 )05/03/2022 10:06 AM EDTBody Mass Index22.9605/03/2022 10:06 AM EDT Plan of Treatment Health MaintenanceDue DateLast SdbiNbdkhvgvEybtmi56/25/1962Depression Screen 1964Hepatitis C awtzfa5907/22/1970DTaP/Tdap/Td vaccine (1 - Tdap)1971 Nziyacxpzrb03/25/1997Colorectal Cancer Jsitpp7507/22/1997FIT/FOBT: Average risk 1997Fecal-DNA (Cologuard): Average risk1997Sigmoidoscopy/CT pqkgnuuaofwb86/25/1997Shingles vaccine (1 of 2)2002AAA kxkmpt3007/22/2017 Pneumococcal 50+ years Vaccine (2 of 2 [...] Team MemberRelationshipSpecialtyStart DateEnd Radames Mart MD [address] [facility] [address] [place] [address] PCP - GeneralInternal Medicine04/23/22
--- OUTSIDE RECORDS SUMMARY | 2025-10-17 19:09 | XMS_ITS | Encounter Summary ---
Author Organization [facility] Address [address] [place] [address] Care Team Providers Care Pet Caregiver Name Role Phone Radames Mart MD Unavailable [phone] Radames Mart MD Primary Care Provider [phone] Reason for Visit * ReasonOnset DateCommentsrequest for home otbdcb4510/16/2025 Encounter Details DateTypeDepartmentCare Team (Latest Contact Info)Ldhotrpxerc84/19/2025Telephone [facility] [place] [facility] [address] [place] [address] Radames Mart MD [address] [place] [address] request for home health Social History Tobacco UseTypesPacks/DayYears UsedDateSmoking Tobacco: FormerCigarettes Smokeless Tobacco: NeverAlcohol UseStandard Drinks/WeekCommentsYes0 (1 standard drink = 0.6 oz pure alcohol)caffeine 1-2 cups per dayPHQ-2AnswerDate Recorded Patient Health Questionnaire-2 Ibika09311/30/2024Sex and Gender InformationValue Date RecordedSex Assigned at BirthNot on fileLegal BrjBaqx9102/09/2023 7:16 PM EDT Gender IdentityNot on fileSexual OrientationNot on filedocumented as of this encounter Miscellaneous Notes * Telephone Encounter - Luna Peterson LPN - 10/16/2025 3:51 PM EST FAXED ORDER AND MOST RECENT OFFICE NOTE TO FAX # LISTED * Telephone Encounter - Lolita Estefanyleif - 10/16/2025 3:34 PM EST Hi, my name is Kika and I am calling from [place] and [facility]. I am calling in regards to a patient of Dr Keith's Tunde Quezada. Date of is a [id number] just spoke with his him. And they are interested in getting home care services set up. She did mention that she was going back between home health care and hospice and she at this time is going the home health route. So I was just seeing if Dr. Keith could initiate a referral to us for home care services so we can get out to start seeing the patient, if possible, if you can fax over the most recent office visit Note in order to [phone]. And then if you do have any questions, you can call me at [phone], option 1. Again, my name is Mary and I am calling from [place] and some [facility]. Thank Have a great day. Gina. documented in this encounter Plan of Treatment DateTypeDepartmentCare Team (Latest Contact Info)Euznpquorhq83/29/2025 2:00 PM ESTOffice Visit [facility] [place] [facility] [address] [facility] [address] [place] [address] Radames Mart MD [address] [place] [address] documented as of this encounter Visit Diagnoses Not on filedocumented in this encounter Care Teams Team MemberRelationshipSpecialtyStart DateEnd Date Radames Mart MD [address] [place] [address] PCP - [facility]04/21/23 Radames Mart MD [address] [place] [address] PCP - GeneralInternal Medicine06/16/23documented as of this encounter
--- OUTSIDE RECORDS SUMMARY | 2025-10-17 19:09 | XMS_ITS | Encounter Summary ---
Author Organization [facility] Address [address] [place] [address] Care Team Providers Care Sonography Technologist Name Role Phone Radames Mart MD Unavailable [phone] Radames Mart MD Primary Care Provider [phone] Encounter Details DateTypeDepartmentCare Team (Latest Contact Info)Bbhzhycdgje35/14/2025Patient Outreach [facility] [address] [place] [address] Michela Palmer LPN Social History Tobacco UseTypesPacks/DayYears UsedDateSmoking Tobacco: FormerCigarettes Smokeless Tobacco: NeverAlcohol UseStandard Drinks/WeekCommentsYes0 (1 standard drink = 0.6 oz pure alcohol)caffeine 1-2 cups per dayPHQ-2AnswerDate Recorded Patient Health Questionnaire-2 Oipbx29711/30/2024Sex and Gender InformationValue Date RecordedSex Assigned at BirthNot on fileLegal OuuLmvc8102/09/2023 7:16 PM EDT Gender IdentityNot on fileSexual OrientationNot on filedocumented as of this encounter Progress Notes * Michela Palmer LPN - 10/11/2025 11:11 AM EST <October 11, 2025, 11:11 - Michela Palmer LPN> Megan called stating that he is not wanting to take anymore medications he is not wanting to do anything she is wanting to possible get hospice care for him possibly. I did give her numbers to [facility] and [facility] as well and she is going to talk with him regarding the referral. He has no appetite he does not want to get up he sits on the side of the bed but that is it. She states she did give him a xanax last night and he did sleep better. She states she will call me back when she decides what he wants to do. Flowsheet Row Patient Outreach from 10/11/2025 in [facility]NOTE 3] with Michela Palmer LPN Week Number Call Week 1 Call Was patient contacted successfully? Yes Have you had any urgent care/ED/Hospital visits since discharge? No Any medication changes since last contact? Yes If yes, medications reconciled this encounter? No Is the patient taking all medications as directed? No What is preventing the patient from taking all medications as directed? he does not want to take anymore medication so he does take them but not all the time Have you visited your PCP since discharge? Yes What is the patient's perception of their health status since discharge? Worsening * MICAH Taylor - 10/11/2025 11:11 AM EST Acknowledged documented in this encounter Plan of Treatment DateTypeDepartmentCare Team (Latest Contact Info)Lsllrzijhzf74/29/2025 2:00 PM ESTOffice Visit [facility] [address] [facility] [address] [place] [address] Radames Mart MD [address] [facility] [address] [place] [address] documented as of this encounter Visit Diagnoses Not on filedocumented in this encounter Care Teams Team MemberRelationshipSpecialtyStart DateEnd Date Radames Mart MD [address] [facility] [address] [place] [address] PCP - ACO Reach04/21/23 Radames Mart MD [address] [place] [address] [place] [address] PCP - GeneralInternal Medicine06/16/23documented as of this encounter
--- OUTSIDE RECORDS SUMMARY | 2025-10-17 19:09 | XMS_ITS | Encounter Summary ---
Author Organization [facility] Address [address] [facility] [place] [address] Care Team Providers Care Storage Architect Name Role Phone Radames Mart MD Unavailable [phone] Radames Mart MD Primary Care Provider [phone] Encounter Details DateTypeDepartmentCare Team (Latest Contact Info)Pumdxwjtvif77/06/2025bstract [facility] [place] [facility] [address] [place] [address] [place] [address] Radames Mart MD [address] [place] [address] [place], [place] [id number] Social History Tobacco UseTypesPacks/DayYears UsedDateSmoking Tobacco: FormerCigarettes Smokeless Tobacco: NeverAlcohol UseStandard Drinks/WeekCommentsYes0 (1 standard drink = 0.6 oz pure alcohol)caffeine 1-2 cups per dayPHQ-2AnswerDate Recorded Patient Health Questionnaire-2 Njdqv75611/30/2024Sex and Gender InformationValue Date RecordedSex Assigned at BirthNot on fileLegal KdwQgbc7402/09/2023 7:16 PM EDT Gender IdentityNot on fileSexual OrientationNot on filedocumented as of this encounter Plan of Treatment DateTypeDepartmentCare Team (Latest Contact Info)Tqomemqyzwc58/29/2025 2:00 PM ESTOffice Visit [facility] [place] [facility] [address] [place] [address] [place] [phone] Radames Mart MD [address] [place] [address] [place], [place] [address] documented as of this encounter Visit Diagnoses Not on filedocumented in this encounter Care Teams Team MemberRelationshipSpecialtyStart DateEnd Date Radames Mart MD [address] [facility] [address] [place] [address] PCP - ACO Reach04/21/23 Radames Mart MD [address] [facility] [address] [place] [address] PCP - GeneralInternal Medicine06/16/23documented as of this encounter
--- OUTSIDE RECORDS SUMMARY | 2025-10-17 19:10 | XMS_ITS | Patient Health Record ---
Author Organization [facility] Address [address] [place] [address] [address] [place] [address] Care Team Providers Care Wet Pan Mixer Name Role Phone KAI JOSE Unavailable [phone] RAMON DOS SANTOS Unavailable [phone] BHARAT JOSE ANTONIO Unavailable [phone] Allergies No Known Allergies Reason For Referral No Information Problems Problem Type SNOMED Code ICD Code Onset Dates Problem Status W/U Status Risk Notes Problem Chronic obstructive pulmonary disease (19710106) Chronic obstructive pulmonary disease, unspecified (J44.9) ActiveconfirmedProblemChronic respiratory failure (35833224)Chronic respiratory failure with hypoxia (J96.11)ActiveconfirmedProblemChronic respiratory failure (45632153)Chronic respiratory failure with hypercapnia (J96.12)Activeconfirmed ProblemDependence on supplemental oxygen (781909945192)Dependence on supplemental oxygen (Z99.81)Activeconfirmed Encounters Encounter Location Date Provider Diagnosis [address] [place] [address] 09/19/2025 JOSE ANTONIO NICHOLSON Chronic respiratory failure with hypoxia J96.11 ; Chronic respiratory failure with hypercapnia J96.12 ; Dependence on supplemental oxygen Z99.81 and Chronic obstructive pulmonary disease, unspecified J44.[address] [place] [address] 09/22/2025 JOSE QUINN Chronic respiratory failure with hypoxia J96.11 ; Chronic respiratory failure with hypercapnia J96.12 ; Dependence on supplemental oxygen Z99.81 and Chronic obstructive pulmonary disease, unspecified J44.[address] [place] [address] 09/24/2025 RAMON DOS SANTOS Chronic respiratory failure with hypoxia J96.11 ; Chronic respiratory failure with hypercapnia J96.12 ; Dependence on supplemental oxygen Z99.81 and Chronic obstructive pulmonary disease, unspecified J44.9 Assessments Encounter Date Diagnosis (ICD Code) Assessment Notes Treatment Notes Treatment Clinical Notes Section Notes 09/19/2025 Chronic respiratory failure with hypoxia (ICD-10 - J96.11) 09/19/2025hronic respiratory failure with hypercapnia (ICD-10 - J96.12) 09/22/2025hronic respiratory failure with hypoxia (ICD-10 - J96.11)09/24/2025 Chronic respiratory failure with hypoxia (ICD-10 - J96.11)09/24/2025hronic respiratory failure with hypercapnia (ICD-10 - J96.12)09/22/2025hronic respiratory failure with hypercapnia (ICD-10 - J96.12)09/19/2025Dependence on supplemental oxygen (ICD-10 - Z99.81)09/22/2025Dependence on supplemental oxygen (ICD-10 - Z99.81)09/24/2025Dependence on supplemental oxygen (ICD-10 - Z99.81) 09/19/2025hronic obstructive pulmonary disease, unspecified (ICD-10 - J44.9) 09/24/2025hronic obstructive pulmonary disease, unspecified (ICD-10 - J44.9) 09/22/2025hronic obstructive pulmonary disease, unspecified (ICD-10 - J44.9) 09/24/2025OtherSeen in collaboration and discussed plan of care with Dr. Jose Quinn Plan Of Treatment No Information Insurance Providers Payer Name Payer Address Payer Phone Subscriber Number Group Number Insured Name Patient Relationship to Insured Coverage Start Date Coverage End Date [employer] [place] [place] [address] [id number] Jeffy Quezada - patient is the insured Medical (General) History Medical History History ICD Code COPD, malignancy, PNA, depre ssion, emphysema, CAD, O2 dependence, malnutrition, EtOH use, acute on chronic hypoxic and hypercapnic respiratory failure, anemia, and HTN Surgical History Surgery Date(Month/Year) Records reviewed Hospitalization History Reason Date(Month/Year) Records reviewed
--- OUTSIDE RECORDS SUMMARY | 2025-10-17 19:10 | XMS_ITS | Patient Health Record ---
Author Organization [facility] Address [address] [place] [address] Care Team Providers Care Treasurer Name Role Phone Radames Mart MD Primary Care Provider Josue Rincon [phone] Allergies Allergen (clinical drug ingredient) Drug/Non Drug [...] a day; Duration: 30 day(s)* Lot # [id number], Expiration Date: Not-TakingOrgovyx 120 MG1 tablet Orally [...] containing alcohol in the past year?Weekly (3 points)Uxgizv3KdtbdlccnzgxpzJyphjnqaUCMTW-J (Standard) Question Answer Notes Did you have [...] year?2 to 3 times a week (3 points)Xcwnvo0Awvjhxvtlbfkbb Negative Problems Problem Type SNOMED Code ICD Code Onset Dates Problem Status W/U Status Risk Notes Problem Malignant tumor of prostate (717935051) P rostate cancer (C61) ActiveconfirmedProblemBenign prostatic hypertrophy with outflow obstruction (933708055)BPH loc w urin obs/LUTS (N40.1)Activeconfirmed Encounters Encounter Location Date Provider Diagnosis [facility] [address] [place] [place] [address] 06/10/2025 Josue Castro Elevated PSA R97.20 Assessments [...] End Date [place]IC[place] [address] [place] [address] [id number] Cecily Quezadaf - patient is the [id number] [facility] [address] [place] [id number], Danny Self - patient is the [id number] 2017 Medical (General) History Medical History History ICD Code Covid-16 December 2020 COPD- on oxygenDepressionhigh cholesterolHistory of DVTBPH loc w urin obs/LUTS N40.1Elevated PSAR97.20Prostate ylukwvX83Vxqofoov History Surgery Date(Month/Year) heart stents hernia surgeryFusion prostate biopsy
--- OUTSIDE RECORDS SUMMARY | 2025-10-17 19:10 | XMS_ITS | Clinical Summary ---
Author Organization [facility] Address [address] [place] [address] Care Team Providers Care Infant Toddler Lead Teacher Name Role Phone Radames Mart MD Primary Care Provider [phone] Medications MedicationSigDispense QuantityRefillsLast FilledStart DateEnd DateStatus dabigatran etexilate (Pradaxa) 150 mg capsule Indications:Paroxysmal atrial fibrillation (CMS/HCC)Take 1 capsule (150 mg) by mouth two times daily. Do not crush or chew. 180 capsule 5Active Active Problems ProblemNoted DateDiagnosed DateChronic post-traumatic stress disorder (PTSD) after yfdvju7409/30/2025 Overview (09/30/2025): Mar 18, 2025 Entered By: BHARAT CROWDER Comment: 50% Chronic respiratory aitvauu5709/30/20252099Ivzsgcfa29/03/2025Major depressive disorder, recurrent, dsftdple22/03/2025Paroxysmal atrial lvheveygkrnl44/03/2025 Exposure to potentially hazardous vnnlbhyfy61/13/2025ge-related nuclear cataract, dskrxexkk70/02/6583Qcljdzvcfiskph10/02/0065Rfcxvyi00/19/2023 Centrilobular dvazqilfj56/19/2023hronic obstructive pulmonary jrfeqvu2106/15/2023 Pvzxmtrtmggk31/19/2023oronary glhbbjvzliznwrl12/19/2023Elevated PSA06/15/2023 GERD (gastroesophageal reflux disease)06/15/2023Lung ofaakb3406/15/2023Malignant tumor of fgmdxqyw55/19/2023Nocturnal leg gcubit7306/15/2023Oxygen dependent 06/15/2023eripheral vascular jqihgjq27/19/2023Pure hypercholesterolemia 06/15/2023History of colonic rboprc1402/26/2022ramp in lower leg associated with rest06/27/2018 Encounters DateTypeDepartmentCare VvtrXtycdfcygzy13/06/2025Orders Only [facility] [address] [place] [address] Angela Noe MA Paroxysmal atrial fibrillation (CMS/HCC) (Primary Dx)from Last 3 Months Social History Tobacco UseTypesPacks/DayYears UsedDateSmoking Tobacco: Never AssessedSex and Gender InformationValueDate RecordedSex Assigned at RcttlXffr67/30/2025 2:37 PM EDTLegal VrkRlkw7505/26/2022 10:58 PM EDTGender QswjqxamZvmi95/30/2025 2:37 PM EDT Sexual OrientationHeterosexual or Fvhasozx03/30/2025 2:37 PM EDT Plan of Treatment DateTypeDepartmentCare Team (Latest Contact Info)Qhoglwirqde87/25/2025 2:30 PM ESTOffice Visit [facility] [address] [place] [address] Sunil Mulligan MD [address] [place] [address] Health MaintenanceDue DateLast DoneCommentsCT Qvzjhwezguth1952FIT-DNA 1950FIT1950FOBT1950Medicare Annual Wellness (AWV)1950 Jbubdsofylhvi1952Depression Wjiiqswwo92/25/1964Adult Tiphjtm7002/26/2002 02/27/1992Fall Risk Oyvegifbi52/25/2017COVID-19 Vaccine ( season) , 02/02/2022, 01/29/2021, Additional history exists Woasigiedji91/07/203204/2Colorectal Cancer Gvaqkgcpc61/07/2032Zoster NisjtaxjFwekzzpoc70/29/2020, 01/28/2020Pneumococcal Vaccine: 50+ YearsCompleted 02/03/2024, 01/28/2020, 05/31/2019, Additional history existsInfluenza Vaccine Trennbjaa08/01/2025, 02/03/2024, 10/19/2022, Additional history existsHIB VaccinesAged OutNo longer eligible based on patient's age to complete this topic HPV VaccinesAged OutNo longer eligible based on patient's age to complete this topicIPV VaccinesAged OutNo longer eligible based on patient's age to complete this topicMeningococcal B VaccineAged OutNo longer eligible based on patient's age to complete this topicMeningococcal VaccineAged OutNo longer eligible based on patient's age to complete this topicRotavirus VaccinesAged OutNo longer eligible based on patient's age to complete this topic Insurance Care Teams Team MemberRelationshipSpecialtyStart DateEnd Radames Mart MD [address] [facility] [address] [place] [address] PCP - GeneralInternal Rfmlgutn77/20/25
--- OUTSIDE RECORDS SUMMARY | 2025-10-17 19:10 | XMS_ITS | Encounter Summary ---
Author Organization [facility] Address [address] [place] [address] Care Team Providers Care Grades 7 And 8 Visiting Teacher Name Role Phone Radames Mart MD Primary Care Provider Encounter Details DateTypeDepartmentCare Team (Latest Contact Info)Ycaufoenqno78/06/2025Orders Only [place] [address] [place] [address] Angela Noe MA Paroxysmal atrial fibrillation (CMS/HCC) (Primary Dx) Social History Tobacco UseTypesPacks/DayYears UsedDateSmoking Tobacco: Never AssessedSex and Gender InformationValueDate RecordedSex Assigned at VozbwSdrz60/30/2025 2:37 PM EDTLegal AbwDhmj9205/26/2022 10:58 PM EDTGender MruibnklAlpv49/30/2025 2:37 PM EDT Sexual OrientationHeterosexual or Zxnscubj89/30/2025 2:37 PM EDTdocumented as of this encounter Plan of Treatment DateTypeDepartmentCare Team (Latest Contact Info)Mfjvkovyauz69/25/2025 2:30 PM ESTOffice Visit [facility] [address] [place] [address] Sunil Mulligan MD [address] [place] [address] documented as of this encounter Visit Diagnoses Diagnosis Paroxysmal atrial fibrillation (CMS/HCC)- Primary Atrial fibrillation documented in this encounter Care Teams Team MemberRelationshipSpecialtyStart DateEnd Date Radames Mart MD [address] [facility] [address] [place] [address] PCP - GeneralInternal Vikjrlnu04/20/25documented as of this encounter
[2025-10-17 19:17] LABS: SARS-CoV-2 Ag NEGATIVE (NEGATIVE)
--- NOTE | 2025-10-17 19:17 | XR_ITS ---
[address] [address] Patient Name: BRIAN BARNARD MRN: [id number] date: 1950 Sex: M Assigned Patient Location: ER Current Patient Location: ER Accession/Order Number: [id number] Exam Date: 10/17/2025 19:22 Report Date: 10/17/2025 19:44 At the request of: FLIP OBRIEN Procedure: XR chest 1V Plain film chest Single view HISTORY: Shortness of breath COMPARISON: 09/10/2025 FINDINGS: SUPPORT DEVICES: None POSTSURGICAL CHANGES: None HEART: Within normal limits PULMONARY [place]RO[place]: Hilar vascular prominence MEDIASTINUM: Unremarkable LUNGS AND PLEURA: Mild basilar pleural-parenchymal changes. BONY STRUCTURES: Intact ADDITIONAL FINDINGS None XR/XR chest 1V IMPRESSION: Mild failure. Impression dictated by: Baldev Perez M.D. 10/17/2025 7:44 PM Dictation Location: [place] [address] Electronically authenticated by: [id number] Y Date: 10/17/2025 19:44
[2025-10-17 20:49] LABS: Allen Test POSITIVE (POSITIVE); BIPAP Pressure 16/8; HCO3 ABG 38.7 mmol/L (22.0-26.0); O2 Mode BIPAP; Oxygen Saturation ABG 93.2 %; PO2 ABG 62.7 mmHg (80.0-100.0); Puncture Site RR; Rate 14
[2025-10-17 20:51] LABS: ABG PCO2 64.8 mmHg (35.0-45.0)
[2025-10-17] MEDS: FUROSEMIDE 40 MG/4 ML VIAL IVP (20:57)
[2025-10-17] MEDS: MAGNESIUM SULFATE IN WATER 2 GM/50 ML PREMIX IV (20:57)
--- NOTE | 2025-10-17 22:17 | PC.NURSE ---
this patient and his informed of the patient 's room will be 222, but waiting a nurse that the warehouse specialist call in. this patient and his voices no concerns, needs and the patient shows no signs of distress. this patient's will take the patient's clothing, but the patient will keep his phone, phone manager car and reading glasses
--- OUTSIDE RECORDS SUMMARY | 2025-10-17 23:20 | XMS_ITS | CCD ---
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 Steamer Name Role Phone Radaems Mart MD Primary Care Provider [phone] JOSUE CASTRO Admitting Unavailable JOSUE CASTRO Attending Unavailable RADAMES MART Primary Care Unavailable JOSUE CASTRO Referring Unavailable ARDAMES MART Primary Care Unavailable RADAMES MART Primary [...] LAU Attending Unavailable Radames Mart MD Unavailable [phone] Radames Mart MD Primary Care Provider Josue Castro Attending Unavailable RADAMES MART Primary Care Unavailable Josue Castro Attending Unavailable RADAMES MART Primary Care Unavailable RADAMES MART Primary Care Unavailable Josue Castro Attending Unavailable IRINA BOWMAN Attending Unavailable IRINA BOWMAN Attending Unavailable Allergies Allergy ClassificationReported Allergen(s)Allergy TypeDate of OnsetReaction(s) Facility (1 source)TheophyllineDrug AllergydizzinessNorth [employer] Other (1 source)Dust; Translations: [Dust]Propensity to adverse reactions (disorder) [facility]ository (2 sources)House dust miteAllergy to prpmiqluv85-39-5469[facility] Work Phone: Medications Current Medications MedicationDrug Class(es)DatesSig (Normalized)Sig (Original)30 actuat aclidinium bromide 0.4 mg/actuat dry powder inhaler (4 sources)Start: 76-74-7728Zzhrscv Pressair 400 MCG/ACT inhaler Indications: Centrilobular emphysema [...] the morning and at bedtime 0 ActiveAclidinium Hibbs 400 MCG/ACT (1 source)take 1 puff(s) by inhalation once dailyAclidinium Hibbs 400 MCG/ACT 1 puff Inhalation daily Activealbuterol 0.833 mg/ml / ipratropium bromide 0.167 mg/ml inhalation solution (5 sources)Anticholinergic, beta2-Adrenergic AgonistStart: 02-07-2025 ipratropium-albuterol (Duo-Neb) 0.5-2.5 mg/3 mL nebulizer solution Indications: Centrilobular emphysema (HCC) Take 3 mL by nebulization 4 (four) times a day as needed for wheezing or shortness of breath 150 mL 5 02/07/2025 ActiveALPRAZolam 0.25 mg oral tablet (2 sources)BenzodiazepineStart: 09-30-2025 End: 70-31-6571xjrt 1 tablet by mouth every twenty-four hours as needed for anxiety and anxiety and anxietyALPRAZolam (Xanax) 0.25 MG tablet Indications: Anxiety Take 1 tablet (0.25 mg) by mouth Daily as needed for anxiety 30 tablet 09/30/2025 10/30/2025 Activebicalutamide 50 mg oral tablet (1 source)Androgen Receptor Inhibitortake 1 tablet by mouth every twenty-four hoursBicalutamide 50 MG 1 tablet Orally Once a day Ldpxgm666 actuat budesonide 0.16 mg/actuat / formoterol fumarate 0.0045 mg/actuat metered dose inhaler (1 source)Corticosteroid, beta2-Adrenergic Agonisttake 2 puff(s) by inhalation twice dailyBudesonide-Formoterol Fumarate 160-4.5 MCG/ACT 2 puffs Inhalation Twice a day Gyyoqd581 actuat budesonide 0.16 mg/actuat / formoterol fumarate 0.0048 mg/actuat / glycopyrrolate 0.009 mg/actuat metered dose inhaler (7 sources)Corticosteroid, beta2-Adrenergic AgonistStart: 16-24-5042llwz 2 puff(s) by inhalation in the tmxtvffRoxkkqy-Vpolyhnqksq-Ytblnflqsb (Breztri Aerosphere) 160-9-4.8 MCG/ACT aerosol Indications: Chronic obstructive pulmonary disease, unspecified COPD type (HCC) Inhale 2 puffs in the morning and 2 puffs before bedtime. 09/30/2025 ActiveStart: 02-07-2025 End: 55-94-0261uhny 2 puff(s) by inhalation in the morning Gacicma-Bwlqrwecdpv-Lfwuexwexb (Breztri Aerosphere) 160-9-4.8 MCG/ACT aerosol Indications: Chronic obstructive pulmonary disease, unspecified COPD type (HCC) Inhale 2 puffs in the morning and 2 puffsbefore bedtime. 10.7 g 5 02/07/2025 09/30/2025 Discontinued (Reorder)calcium chloride 0.0014 meq/ml / potassium chloride 0.004 meq/ml / sodium chloride 0.103 meq/ml / sodium lactate 0.028 meq/ml injectable solution (1 source)Start: 18-68-6253fuggoicc ringers infusionStart: 79-34-3283idifizza ringers infusionclopidogrel 75 mg oral tablet (11 [...] 2 mg oral tablet (10 sources)alpha-Adrenergic BlockerStart: 30-81-4637niap 1 tablet by mouth at bedtimedoxazosin (Cardura) 2 MG tablet Take 2 mg by mouth at bedtime 02/03/2024 ActiveStart: 32-78-1725CDQLOTOAB MESYLATE POtake 1 tablet by mouth every twenty- four hoursDoxazosin Mesylate 2 MG 1 tablet Orally Once a day Activeezetimibe 10 mg / simvastatin 40 mg oral tablet (8 sources)HMG-CoA Reductase Inhibitor, Dietary Cholesterol Absorption Inhibitor ezetimibe-simvastatin (Vytorin) 10-40 MG tablet 1 (one) time each day at the same time. Anosez84 actuat fluticasone propionate 0.25 mg/actuat / salmeterol 0.05 mg/actuat dry powder inhaler (2 sources)Corticosteroid, beta2-Adrenergic Agonisttake 1 puff(s) by inhalation every twelve hoursfluticasone-salmeterol (ADVAIR) 250-50 MCG/ACT AEPB diskus inhaler Inhale 1 puff into the lungs every 12 hours 0 Eqawgo17 ml lidocaine hydrochloride 10 mg/ml injection (1 source)Antiarrhythmic, Amide Local AnestheticStart: 05-04-2022 End: 94-26-1493wiethekdc PF 1 % injection 1 mLnitroglycerin 0.4 mg sublingual tablet (3 sources)Nitrate VasodilatorStart: 48-05-3739ipoclomhgvvwu (Nitrostat) 0.[address] 0.4 mg under the tongue every 5 (five) minutes if needed for chest pain 09/05/2025 ActiveOxygen (8 sources)oxygen (O2) gas Inhale 2 L/min continuously. ActiveOxygen 2 liters (1 source)Oxygen 2 liters Activepantoprazole 40 mg delayed release oral tablet (2 sources)Proton Pump InhibitorStart: 18-29-3983gors 1 tablet by mouth in the morningpantoprazole (ProtoNix) 40 MG EC tablet Indications: Gastroesophageal reflux disease without esophagitis Take 1 tablet (40 mg) by mouth in the morning. Do not crush, chew, or split. 90 tablet 3 09/30/2025 Activerelugolix (Orgovyx) 120 MG tablet (3 sources)Start: 18-00-2372sook 1 tablet by mouth once dailyrelugolix (Orgovyx) 120 MG tablet Take 120 mg by mouth Daily. 07/17/2025 ActiveRespiratory Therapy Supplies (Nebulizer/Tubing/Mouthpiece) kit (5 sources)Start: 32-90-1678Kghphoxdrfm Therapy Supplies (Nebulizer/Tubing/Mouthpiece) kit Indications: Centrilobular emphysema(HCC) [...] 5-40 mLWixela Inhub 500-50 MCG/DOSE (1 source)Start: 41-21-2960vxsy 1 puff(s) by inhalation twice dailyWixela Inhub 500-50 MCG/DOSE 1 puff Inhalation Twice a day for 30 days Apr, Active Completed/Discontinued Medications MedicationDrug Class(es)DatesSig (Normalized)Sig (Original)albuterol 0.83 mg/ml inhalation solution (7 sources)beta2-Adrenergic AgonistStart: 07-10-2025 End: 21-22-7391eikurjqsy (2.5 MG/3ML) 0.083% nebulizer solution Take 2.5 mg by nebulization every 6 (six) hours ifneeded for wheezing or shortness of breath 07/10/2025 09/30/2025 DiscontinuedStart: 13-30-8592luoohbqnd (2.5 MG/3ML) 0.083% nebulizer solution Indications: Centrilobular [...] tablet (3 sources)Factor Xa InhibitorStart: 09-24-2025 End: 60-45-7830pamt 1 tablet by mouth in the morningEliquis 5 MG tablet Take 5 mg by mouth in the morning and 5 mg before bedtime. 09/24/2025 09/30/2025 Discontinued (Cost of medication)linaclotide 0.145 mg oral capsule (7 sources)Guanylate Cyclase-C AgonistStart: 01-24-2024 End: 76-54-4788ykxl 1 capsule by mouth before mealtimelinaCLOtide (Linzess) 145 MCG capsule Indications: Chronic idiopathic constipation Take 1 capsule (145 mcg) by mouth in the morning. Take before meals. Do not crush or chew.. 30 capsule 11 Discontinued (Cost of medication)Linzess PRN Activemirtazapine 15 mg oral tablet (14 sources)Start: 09-24-2025 End: 89-03-7819henb 1 tablet by mouth at bedtimemirtazapine (Remeron) 15 MG tablet Take 15 mg by mouth at bedtime 09/24/2025 09/30/2025 Discontinued (Therapy completed)Start: 60-52-8522fbbn 1 tablet by mouth at bedtimemirtazapine (Remeron) [...] tablet (11 sources)Proton Pump InhibitorStart: 02-03-2024 End: 04-52-1157nhfr 1 tablet by mouth before mealtimeomeprazole OTC (PriLOSEC OTC) 20 MG EC tablet Take 20 mg by mouth in the morning. Take before meals. 02/03/2024 09/30/2025 Discontinuedtake 1 capsule by mouth once dailyPriLOSEC 20 MG 1 capsule Orally Once a day for 30 day(s) Activeprazosin 5 mg oral capsule (5 sources)alpha-Adrenergic Alex End: 69-13-1856muye 1 capsule by mouth at bedtimeprazosin (Minipress) 5 MG capsule Take 5 mg by mouth at bedtime 09/30/2025 Discontinuedtriamcinolone acetonide 0.055 mg/actuat metered dose nasal spray (8 sources)Corticosteroid End: 77-42-2502mopbtnbbhawqa (Nasacort Allergy 24HR) 55 MCG/ACT nasal inhaler 1 (one) time each day at the same time. 09/30/2025 Discontinued (Therapy completed) Problems Active Problems Problem ClassificationProblemDateDocumented DateEpisodic/ChronicAnxiety disorders (18 sources)Anxiety; Translations: [Anxiety disorder, unspecified]Onset: 938140-54-5372MgaurqcLymdelhpv and vision defects (3 sources)Diplopia; Translations: [Diplopia]Onset: 667520-62-5560Cotrthbh Cancer of prostate (13 sources)Malignant neoplasm of prostate; Translations: [Malignant tumor of prostate]Onset: 58-19-0477VhgfsclAjchyqi dysrhythmias (4 sources)Paroxysmal atrial fibrillation; Translations: [Paroxysmal atrial fibrillation]Onset: 967864-57-0707XfbctgfUctdzpdc (8 sources)Bilateral age-related nuclear cataracts; Translations: [Age-related nuclear cataract, bilateral]Onset: 912807-92-0472SjwuezkUjvqkvh obstructive pulmonary disease and bronchiectasis (20 sources)Emphysema; Translations: [Emphysema, unspecified]Onset: 06-15-2023 32-97-4079FullubbDvsuyvij atherosclerosis and other heart disease (10 sources)Coronary atherosclerosis; Translations: [Atherosclerotic heart disease of [place] coronary artery without angina pectoris]Onset: 06-15-2023 57-33-1715JqvkcqcVvoillpne of lipid metabolism (16 sources)Pure hypercholesterolemia; Translations: [Pure hypercholesterolemia, unspecified]Onset: 307713-56-7634WzumdorTqaxepqpyl disorders (10 sources)Gastroesophageal reflux disease; Translations: [Gastro-esophageal reflux disease without esophagitis]Onset: 386551-98-1410RtsiqxaDtxcawczbqo of prostate (1 source)Benign prostatic hyperplasia with lower urinary tract symptoms; Translations: [Benign prostatic hyperplasia with lower urinary tract symptoms] Onset: 41-76-9158JkztsrxUopnadljnabee and screening for infectious disease (1 source)Contact with and (suspected) exposure to tuberculosis; Translations: [Exposure to tuberculosis (event)]EpisodicMood disorders (10 sources)Major depressive disorder; Translations: [Major depressive disorder, single episode, unspecified]Onset: 634680-80-1142NfklltgGgjij connective tissue disease (8 sources)Cramp in lower limb; Translations: [Sleep related leg cramps]Onset: 020994-02-7832NgdmwgcVcytb diseases of kidney and ureters (1 source)Other obstructive and reflux uropathy; Translations: [Other obstructive and reflux uropathy]Onset: 46-48-1695FscgrfswOuvvg gastrointestinal disorders (2 sources)Chronic idiopathic constipation; Translations: [Chronic idiopathic constipation]09-44-6287FtiljoiGxlig gastrointestinal disorders (1 source)Flatulence, eructation and gas pain; Translations: [Abdominal distension (gaseous)]EpisodicOther gastrointestinal disorders (1 source)Abdominal distension (gaseous)EpisodicOther gastrointestinal disorders (1 source)Constipation, unspecifiedEpisodicOther lower respiratory disease (1 source)Multiple nodules of lung; Translations: [Other nonspecific abnormal finding of lung field]EpisodicPeripheral and visceral atherosclerosis (8 sources)Peripheral vascular disease; Translations: [Peripheral vascular disease, unspecified]Onset: 376706-07-4200ApcupjaRibvdqldesk failure; insufficiency; arrest (adult) (14 sources)Dependence on supplemental oxygen; Translations: [Dependence on supplemental oxygen]Onset: 059472-66-1009GrsvhzjStscujpcagy failure; insufficiency; arrest (adult) (2 sources)Acute respiratory failure; Translations: [Acute respiratory failure with hypoxia]72-35-5206Zfbvkrbo Past or Other Problems Problem ClassificationProblemDateDocumented DateEpisodic/ChronicOther and unspecified benign neoplasm (8 sources)History of polyp of colon; Translations: [History of colonic polyps] Onset: 256831-91-0659VkqwknujGjkoo connective tissue disease (8 sources)Cramp in lower leg associated with rest; Translations: [Cramp and spasm]Onset: 450219-38-0601FnxoajycFqvrf gastrointestinal disorders (9 sources)Constipation; Translations: [Constipation, unspecified]Onset: 387667-33-3750FjyqpesqNhucg lower respiratory disease (8 sources)Nodule of lung; Translations: [Solitary pulmonary nodule]Onset: 120713-21-2126BvoptcduZpfho screening for suspected conditions (not mental disorders or infectious disease) (9 sources)Raised prostate specific antigen; Translations: [Elevated prostate specific antigen [PSA]]Onset: 53-93-4201QjhuqcmuNqbcwoaw codes; unclassified (7 sources)Contact with and (suspected) exposure to other hazardous substances; Translations: [Contact with and (suspected) exposure to other potentially hazardous substances]Onset: 930755-33-9760Efythkko Results Test NameValueInterpretationReference RangeFacilityLab - Other Lab Resultson 13-58-4434Lvd - Other Lab Results [id number]#1.00OTMercy HealthXR CHEST 2Von 71-22-8603[address] [address] XRay Report Signed Patient: BRIAN QUEZADA MR#: [id number] : 1950 Acct:[id number] Age/Sex: 73 / M ADM Date: 05/30/24 Loc: LAB Attending Dr: RADAMES MART Ordering Physician: RADAMES MART Date of Service: 05/30/24 Procedure(s): XR chest 2V Accession Number(s): [id number] cc: RADAMES MART [address] [address] Patient Name: BRIAN QUEZADA MRN: [id number] date: 1950 Sex: M Assigned Patient Location: LAB Current Patient Location: LAB Accession/Order Number: [id number] Exam Date: 05/30/2024 14:20 Report Date: 06/02/2024 [...] M.D. Signed By: 06/02/249 DD/ 6 TD/TT: Internet Marketing Director:TBHRadiology, Radiologist, - 06/02/2024 [place] [address] XRay Report Signed Patient: BRIAN QUEZADA MR#: [id number] : 1950 Acct:[id number] Age/Sex: 73 / M ADM Date: 05/30/24 Loc: LAB Attending Dr: RADAMES MART Ordering Physician: RADAMES MART Date of Service: 05/30/24 Procedure(s): XR chest 2V Accession Number(s): [id number] cc: RADAMES MART [place] [address] Patient Name: BRIAN QUEZADA MRN: [id number] date: 1950 Sex: M Assigned Patient Location: LAB Current Patient Location: LAB Accession/Order Number: [id number] Exam Date: 05/30/2024 14:20 Report Date: 06/02/2024 [...] M.D. Signed By: 06/02/24438 DD/ 6 TD/TT: Internet Marketing Director: LYNN HealthcareRadiology Study observation (narrative)[facility] HealthcareXR CHEST 2V Ordered By: Radiologist Radiology on 26-99-6367[facility] Work Phone: ct ABDOMEN PELVIS W CONon 83-51-1304[place] [address] [place] Scan Report Signed Patient: BRIAN QUEZADA MR#: [id number] : 1950 Acct:[id number] Age/Sex: 73 / M ADM Date: 05/30/24 Loc: LAB Attending Dr: RADAMES MART Ordering Physician: RADAMES MART Date of Service: 05/30/24 Procedure(s): CT abdomen pelvis w con Accession Number(s): [id number] cc: RADAMES MART [place] [address] Patient Name: BRIAN QUEZADA MRN: [id number] date: 1950 Sex: M Assigned Patient Location: LAB Current Patient Location: Accession/Order Number: [id number] Exam Date: 05/30/2024 14:25 Report Date: 06/01/2024 [...] Signed By: 06/01/24 1023 DD/ 1020 TD/TT: Internet Marketing Director:DEANAadiologgloria, Radiologist, - 06/01/2024 [place] [address] CT Scan Report Signed Patient: BRIAN QUEZADA MR#: [id number] : 1950 Acct:[id number] Age/Sex: 73 / M ADM Date: 05/30/24 Loc: LAB Attending Dr: RADAMES MART Ordering Physician: RADAMES MART Date of Service: 05/30/24 Procedure(s): CT abdomen pelvis w con Accession Number(s): [id number] cc: RADAMES MART [place] [address] Patient Name: BRIAN QUEZADA MRN: [id number] date: 1950 Sex: M Assigned Patient Location: LAB Current Patient Location: Accession/Order Number: [id number] Exam Date: 05/30/2024 14:25 Report Date: 06/01/2024 [...] Signed By: 06/01/24 1023 DD/ 1020 TD/TT: Internet Marketing Director: LYNN HealthcareRadiology Study observation (narrative)[facility] HealthcareCT ABDOMEN PELVIS W CONOrdered By: Radiologist Radiology on 43-81-7971MWTR [employer] Work Phone: nm BONE SC WH BODYon 13-73-8722GV BONE SC WH BODY EXAMINATION: NM BONE [...] Electronically authenticated by: BLAYNE CHOU Date: 2022-07-26 14:[address] [place], [place] [address]urgical Pathologyon 88-99-1528Zmggrfyb Pathology(NOTE) -- Diagnosis -- A. PROSTATE, RIGHT [...] THE ADENOCARCINOMA IN THE INVOLVED BIOPSIES. FOR STAIN WIPER THE SLIDES OF SPECIMEN B WERE REVIEWED [...] PATHOLOGY CONSULTATION Patient Name: BRIAN QUEZADA Rec: [id number] Path Number: [id number] [employer] ANATOMIC PATHOLOGY [address] [place] [phone] NoSt. Francis HospitalComment on above:Performed By: #### PPPVS #### [employer] [address] [place] [address] [id number] Barrel Cap Setter: Brady Wilkes MDEKG 12 LeadOrdered By: Ney Ferrara on 50-63-6692Mvrprv Fylp09BTJZWH [employer] Work Phone: P Wknt66hkfvxaqIDCAktivito Work Phone: P-R Omtwvpxz885 [employer] Work Phone: Q-T Spndknsn300 [employer] Work Phone: QRS Vumurfmm34 [employer] Work Phone: [phone] Calculation (Bazett)410 msBON [employer] Work Phone: R Lmzu50dfnuqdeIEHVamp Communications Work Phone: T Wvdy99mdovgdmKEAVamp Communications Work Phone: Ventricular Mpey41IYUUPB SECWe[employer] Work Phone: BON [employer] Work Phone: [phone] 12 Leadon 24-15-0216Iyiezm sinus rhythm Low voltage QRS Borderline ECG No previous ECGs availableOSS HEALTH Ney Mims MD - 04/24/2022 Normal sinus rhythm Low voltage QRS Borderline ECG No previous ECGs availableJOHN RANDOLPH [facility] ncyclo Work Phone: bUN & Creatinineon 31-65-8392Wqxllqvukz [Mass/Vol]0.93 mg/dL0.70 - 1.20 mg/dLBON [facility] ncycloGFR >60>60 mL/min COMMUNITY HEALTH SYSTEMSGFR Non->60>60 mL/minBON MEMORIAL HOSPITALGFR/1.73 sq M.predicted MDRD (S/P/Bld) [Vol rate/Area]COMMUNITY HEALTH SYSTEMSComment on above:Average GFR for 60-69 years old: 85 mL/min/1.73sq m Chronic Kidney Disease: <60 mL/min/1.73sq m Kidney failure: <15 mL/min/1.73sq m eGFR calculated using average adult body mass. Additional eGFR calculator available at: http://www.XTWIP/multiple_crcl_2012.htm Urea nitrogen (BldV) [Mass/Vol]10 mg/dL8 - 23 mg/dLBON MEMORIAL HOSPITALBUN + Creatinineon 04-23-2022(cont.)NormalChildren'S Hospital For RehabilitationComment on above: Result Comment: Average GFR for 60-69 years old: 85 mL/min/1.73sq m Chronic Kidney Disease: <60 mL/min/1.73sq m Kidney failure: <15 mL/min/1.73sq m eGFR calculated using average adult body mass. Additional eGFR calculator available at: http://www.XTWIP/multiple_crcl_2012.htmPerformed By: #### CBC, BUNCRT, LYTE #### [facility] [address] [place] [address] Barrel Cap Setter: JAYDE Subramanianreatinine [Mass/Vol]0.93 mg/dLNormal0.70-1.20 [facility] For RehabilitationComment on above:Performed By: #### CBC, BUNCRT, LYTE #### [facility] [address] [facility] [place] [address] Barrel Cap Setter: Jean-Pierre Gallardo MDGFR, Amer>60Normal>60[facility] on above:Performed By: #### CBC, BUNCRT, LYTE #### [facility] [address] [facility] [place] [address] Barrel Cap Setter: Jean-Pierre Gallardo MDGFR,non Amer>60Normal>60[facility]Comkal[facility] on above:Performed By: #### JAZMINE, BUNCRT, LYTE #### [facility] [address] [place] [address] Barrel Cap Setter: Jean-Pierre Gallardo MDUrea nitrogen [Mass/Vol]10 mg/dLNormal8-23[facility] HospitalComkal[facility] hospital on above:Performed By: #### CBC, BUNCRT, LYTE #### [facility] [address] [place] [address]. [place] [address] Barrel Cap Setter: Bob Subramanian 25-34-4681Tnpymzaskki distribution width (RBC) [Ratio]11.9 %Jlzchl72.8-14.4[facility] HospitalComment on above: Performed By: #### JAZMINE, BUNCRT, LYTE #### [facility] [address] [facility] [place] [address] Barrel Cap Setter: Jean-Pierre Gallardo MDHematocrit (Bld) [Volume fraction]45.0 %Normal 40.7-50.3[facility]Com[facility] on above:Performed By: #### CBC, BUNCRT, LYTE #### [facility] [address] [facility] [place] [address] Barrel Cap Setter: Jean-Pierre Gallardo MDHemoglobin (Bld) [Mass/Vol]14.1 g/dLNormal 13.0-17.0[facility] RehabilitationComkalamazoo psychiatric hospital on above:Performed By: #### CBC, BUNCRT, LYTE #### [facility] [address] [place] [address]. [place] [address] Barrel Cap Setter: PAVAN SubramanianCH (RBC) [Entitic mass]30.5 hxNpliqc01.2-33.5 [facility] on above:Performed By: #### CBC, BUNCRT, LYTE #### [facility] [address] [place] [address]. [place] [address] Barrel Cap Setter: BHAVNA SubramanianC (RBC) [Mass/Vol]31.3 g/lCYeusek99.4-34.8 [facility] on above:Performed By: #### JAZMINE, BUNCRT, LYTE #### [facility] [address] [place] [address]. [place] [address] Barrel Cap Setter: PAVAN SubramanianCV (RBC) [Entitic vol]97.4 gHQwjgsg91.6-102.9 [facility] on above:Performed By: #### CBC, BUNCRT, LYTE #### [facility] [address] [place] [address]. [place] [address] Barrel Cap Setter: KWESI Subramanian Automated0.0 per 100 WBCNormal0.0[facility] on above:Performed By: #### CBC, BUNCRT, LYTE #### [facility] [address] [place] [address]. [place] [address] Barrel Cap Setter: Aren Subramanianlet mean volume (Bld) [Entitic vol]9.9 fL Normal8.1-13.5[facility] RehabilitationComkalamazoo psychiatric hospital on above:Performed By: #### CBC, BUNCRT, LYTE #### [facility] [address] [facility] [place] [address] Barrel Cap Setter: Srinivas Subramanian (Bld) [#/Vol]162 10*3/sCCtidvo608-248 [facility] For RehabilitationComment on above:Performed By: #### CBC, BUNCRT, LYTE #### [facility] [address] [place] [address]. [place] [address] Barrel Cap Setter: MANE Subramanian (Bld) [#/Vol]4.62 10*6/uLNormal4.21-5.77 [facility] For RehabilitationComment on above:Performed By: #### JAZMINE, BUNCRT, LYTE #### [facility] [address] [place] [address]. [place] [address] Barrel Cap Setter: ANASTASIA Subramanian (Bld) [#/Vol]9.2 10*3/uLNormal3.5-11.3MSt. Francis HospitalComment on above:Performed By: #### JAZMINE, BUNCRT, LYTE #### [facility] [address] [place] [address]. [place] [address] Barrel Cap Setter: Jean-Pierre Gallardo MDHematocrit (Bld) [Volume fraction]45.0 %40.7 - 50.3 %COMMUNITY HEALTH SYSTEMSHemoglobin.gastrointestinal spec 1 Ql (Stl)14.1 g/dL13.0 - 17.0 g/dLBON HOCKING VALLEY COMMUNITY HOSPITALH (RBC) [Entitic mass]30.5 pg25.2 - 33.5 pgBON HOCKING VALLEY COMMUNITY HOSPITALHC (RBC) [Mass/Vol]31.3 g/dL28.4 - 34.8 g/dL [facility]ENTERV (RBC) [Entitic vol]97.4 fL82.6 - 102.9 fLBON MEMORIAL HOSPITALNRBC Automated0.00.0 per 100 WBCBON SECOURS MERCY HEALTHPlatelet distribution width (Bld) [Ratio]11.9 %11.8 - 14.4 %[facility] Platelet mean volume (Bld) [Entitic vol]9.9 fL8.1 - 13.5 fLBON HOAG [facility]IAL HOSPITAL [facility]IAN HEALTHPlatelets (Bld) [#/Vol]162 10*3/uLBON HO[facility] HOSP[facility] HEALTHRBC (Bld) [#/Vol]4.62 10*6/uL4.21 - 5.77 m/uLBON MEMORIAL HOSPITALWBC (Bld) [#/Vol]9.2 10*3/uLBON [facility]OS[facility] HEALTHBON [facility] HEALTHElectrolyte Panelon 29-33-2124Wfozc gap [Moles/Vol]6 mmol/LLow9 - 17 mmol/LB[facility] Chloride [Moles/Vol]101 mmol/L98 - 107 mmol/LBON MEMORIAL HOSPITALCO2 [Moles/Vol]35 mmol/LHigh20 - 31 mmol/LBON [facility] HEALTHInterpretation and review of laboratory resultsAbnormalBON [facility] HEALTHPotassium [Moles/Vol]4.6 mmol/L3.7 - 5.3 mmol/LBON [facility] HEALTHSodium [Moles/Vol] 142 mmol/L135 - 144 mmol/LBON MEMORIAL HOSPITALElectrolyteson 44-60-1193Oawyw gap [Moles/Vol]6 mmol/LLow9-17MerWhitman Hospital and Medical CenterComment on above:Performed By: #### TONY LUCERO LYTE #### [facility] [address] [place] [address] Barrel Cap Setter: JAYDE Subramanianhloride [Moles/Vol]101 mmol/RXbmqyh59-714QyzxgChildren'S Hospital For RehabilitationComkalamazoo psychiatric hospital on above:Performed By: #### TONY LUCERO LYTE #### [facility] [address] [facility] [place] [address] Barrel Cap Setter: JAYDE SubramanianO2 [Moles/Vol]35 mmol/TFgfw22-38FwrdpChildren'S Hospital For RehabilitationComment on above:Performed By: #### CBC, BUNCRT, LYTE #### [facility] [address] [place] [address] Barrel Cap Setter: STEPHANIE Subramanianotassium [Moles/Vol]4.6 mmol/LNormal3.7-5.3 [facility] Hospital For RehabilitationComment on above:Performed By: #### CBC, BUNCRT, LYTE #### [facility] [address] [place] [address] Barrel Cap Setter: Jean-Pierre Gallardo MDSodium [Moles/Vol]142 mmol/XMtwvfm407-366HjcyrChildren'S Hospital For RehabilitationComment on above:Performed By: #### CBC, BUNCRT, LYTE #### [facility] [address] [place] [address] Barrel Cap Setter: Jean-Pierre Gallardo MDCaromont Health Informationon 84-37-2790KLDWYTHE COUNTY COMMUNITY HOSPITALChronic pulmonary change without acute cardiopulmonary process. [facility] RIS CONSOLIDATEDEXAMINATION: TWO XRAY VIEWS OF THE [...] unremarkable. The extrathoracic soft tissues are unremarkable. [facility] Frank Armijo MD - 04/23/2022 EXAMINATION: [...] Chronic pulmonary change without acute cardiopulmonary process. [employer] Phone: radiology Study observation (narrative)[employer] Phone: No Panel InformationOrdered By: Frank Roque on 61-99-7649[employer] Phone: XR CHEST (2 VW)on 34-56-2351RY CHEST (2 VW) EXAMINATION: TWO XRAY VIEWS [...] Signed by: Frank Roque MD 04/23/22 Final resultNormalMerWhitman Hospital and Medical CenterQ - PSA (FREE AND TOTAL)on 02-02-2022 PSA, % FREE13 % (calc)Low>25[place] Medical SpecialistComment on above: Order Comment: [facility] Testing performed at: [facility], [facility], [address] [place] [address], [address] [place] [address], [phone], Marshmallow Maker: Fermín Aj MD [facility] Collection Date/Time: [id number] [facility] Results Received Date/Time: [id number] [facility] Reported Date/Time: [id number] Comment: PSA(ng/mL) Free PSA(%) Estimated(x) Probability of Cancer(as%) 0-2.5 (*) Approx. 1 2.6-4.0(1) 0-27(2) 24(3) 4.1-10(4) 0-10 56 11-15 28 16-20 20 21-25 16 >or =26 8 >10(+) N/A >50 References:(1)Kevin et al.:Urology 60: 469-474 (2002) (2)Kevin et al.:J.Urol 168: 922-925 (2001) Free PSA(%) Sensitivity(%) Specificity(%) < or = 25 85 19 < or = 30 93 9 (3)Kevin et al.:PAVAN 277: 2858-1215 (1996) (4)Catalona et al.:PAVAN 279: 3372-1144 (1997) (x)These estimates vary with age, ethnicity, [...] mind. PSA was performed using the Jett Randolph Immunoassay method. Values obtained from different assay methods cannot be used interchangeably. PSA levels, regardless of value, should not be interpreted as absolute evidence of the presence or absence of disease.Performed By: #### [id number] #### [facility] Default [address] [place], [place] [address]YGY, FREE0.9 ng/mLNormalNortbannern Baptist Memorial Hospital SpecialistComment on above:Order Comment: [facility] Testing performed at: [email or web address], [address] [facility], [address] [place] [address], [address] [place] [address], [phone], Marshmallow Maker: Fermín Aj MD [facility] Collection Date/Time: [facility] Results Received Date/Time: [id number] [facility] Reported Date/Time: [id number] By: #### [id number] #### [facility] Default [address] [place], [place] [address]XZP, TOTAL7.0 ng/mLHigh< OR = 4.0Nortbannern Baptist Memorial HospitalProperty Insurance Agent Comment on above:Order Comment: [facility] Testing performed at: [email or web address], [address] [facility], [address] [place] [address], [address] [place] [address], [phone], Marshmallow Maker: Fermín Aj MD [facility] Collection Date/Time: [facility] Results Received Date/Time: [facility] Reported Date/Time: [id number] By: #### [id number] #### [facility] Default [address] [place], [place] [address]Fnxgqwfc Blood Count with Auto Diffon 36-31-9871Fhtbnxwgy (Bld) [#/Vol]0.07 10*3/uLNormal0.00-0.20Day[facility] Va Medical CenterComment on above:Performed By: #### CBCAD, CMP, LIPD #### [facility] [address] [place], [place] [id number]/100 WBC (Bld)1.0 %NormalDayton Va Medical CenterComment on above:Performed By: #### CBCAD, CMP, LIPD #### [facility] [address] [place], [place] [id number] (Bld) [#/Vol]0.23 10*3/uLNormal0.02-0.50Day[facility] Va Medical CenterComment on above:Performed By: #### CBCAD, CMP, LIPD #### [facility] [address] [place], [place] [id number]/100 WBC (Bld)3.2 %[facility] SpecialistComment on above:Performed By: #### CBCAD, CMP, LIPD #### [facility] [address] [place], [place] [id number] distribution width (RBC) [Ratio]11.9 %Normal 11.0-15.0[facility] Va Medical CenterComment on above:Performed By: #### CBCAD, CMP, LIPD #### [facility] [address] [place], [place] [id number] (Bld) [Volume fraction]43.2 %Umesuw20.5-50.0 [facility] Va Medical CenterComment on above:Performed By: #### CBCAD, CMP, LIPD #### [facility] [address] [place], [place] [id number] (Bld) [Mass/Vol]14.3 g/mBUnawfg90.0-17.1NortherBlanchard Valley Health [facility] SpecialistComment on above:Performed By: #### CBCAD, CMP, LIPD #### [facility] [address] [place], [place] [id number] (Bld) [#/Vol]2.0 10*3/uLNormal0.9-3.9NoProtestant Deaconess Hospital SpecialistComment on above:Performed By: #### CBCAD, CMP, LIPD #### [facility] [address] [place], [place] [id number]/100 WBC (Bld)28.0 %NormalNoProtestant Deaconess Hospital SpecialistComment on above:Performed By: #### CBCAD, CMP, LIPD #### [facility] [address] [place], [place] [id number] (RBC) [Entitic mass]31.0 ivQztxra71.0-33.0NoProtestant Deaconess Hospital SpecialistComment on above:Performed By: #### CBCAD, CMP, LIPD #### [facility] [address] [place], [place] [id number] (RBC) [Mass/Vol]33.1 g/cKBetxqv72.0-36.0NoProtestant Deaconess Hospital SpecialistComment on above:Performed By: #### CBCAD, CMP, LIPD #### [facility] [address] [place], [place] [id number] (RBC) [Entitic vol]94 uNRjdqhw62-305Dlabdlor [place] Medical SpecialistComment on above:Performed By: #### CBCAD, CMP, LIPD #### [facility] [address] [place], [place] [id number] (Bld) [#/Vol]0.7 10*3/uLNormal0.2-0.9NoProtestant Deacon[facility] Hospital SpecialistComment on above:Performed By: #### CBCAD, CMP, LIPD #### [facility] [address] [place], [place] [id number]/100 WBC (Bld)9.3 %NormalLouis Stokes Cleveland Va Medical Center SpecialistComment on above:Performed By: #### CBCAD, CMP, LIPD #### [facility] [address] [place], [place] [id number] (Bld) [#/Vol]4.2 10*3/uLNormal1.5-7.8NortSalem Regional Medical Center SpecialistComment on above:Performed By: #### CBCAD, CMP, LIPD #### [facility] [address] [place], [place] [id number]/100 WBC (Bld)58.4 %NormalNoProtestant Deaconess Hospital SpecialistComment on above:Performed By: #### CBCAD, CMP, LIPD #### [facility] [address] [place], [place] [id number] mean volume (Bld) [Entitic vol]10.20 fLNormal 7.50-12.50NoProtestant Deaconess Hospital SpecialistComment on above:Performed By: #### CBCAD, CMP, LIPD #### [facility] [address] [place], [place] [id number] (Bld) [#/Vol]151 10*3/dQCterpi882-180Zegsbymg [place] Medical SpecialistComment on above:Performed By: #### CBCAD, CMP, LIPD #### [facility] [address] [place], [place] [id number] (Bld) [#/Vol]4.61 10*6/uLNormal4.20-5.80NortSalem Regional Medical Center SpecialistComment on above:Performed By: #### CBCAD, CMP, LIPD #### [facility] [address] [place], [place] [id number]-KG98.6 iVCnrdbr61.0-50.0NoProtestant Deaconess Hospital Specialist Comment on above:Performed By: #### CBCAD, CMP, LIPD #### [facility] [address] [place], [place] [id number] (Bld) [#/Vol]7.2 10*3/uLNormal3.8-11.0NoProtestant Deacon[facility] Hospital SpecialistComment on above:Performed By: #### CBCAD, CMP, LIPD #### [facility] [address] [place], [place] [id number] Metabolic Panelon 26-86-5052Affqtzj [Mass/Vol] 4.5 g/dLNormal3.6-5.1[facility] SpecialistComment on above:Performed By: #### CBCAD, CMP, LIPD #### [facility] [address] [place], [place] [id number]/Globulin [Mass ratio]2.0 {ratio}Normal1.0-2.5NoProtestant Deaconess Hospital SpecialistComment on above:Performed By: #### CBCAD, CMP, LIPD #### [facility] [address] [place], [place] [id number] [Catalytic activity/Vol]78 U/NUlxuhh04-237Bjnwvdza [place] [facility] SpecialistComment on above:Performed By: #### CBCAD, CMP, LIPD #### [facility] [address] [place], [place] [id number] [Catalytic activity/Vol]17 U/LNormal9-46NoProtestant Deaconess Hospital SpecialistComment on above:Result Comment: 10/28/2021 Female reference range changed.Performed By: #### CBCAD, CMP, LIPD #### [facility] [address] [place], [place] [id number] gap [Moles/Vol]15 mmol/JUlyahp60-60Spjljheo [place] [facility] SpecialistComment on above:Result Comment: Effective 12/03/2019 reference range changed.Performed By: #### CBCAD, CMP, LIPD #### [facility] [address] [place], [place] [id number] [Catalytic activity/Vol]20 U/IPrinti11-88Pfovibil [place] [facility] SpecialistComment on above:Performed By: #### CBCAD, CMP, LIPD #### [facility] [address] [place], [place] [id number] [Mass/Vol]0.53 mg/dLNormal0.30-1.20[place] Medical SpecialistComment on above:Performed By: #### CBCAD, CMP, LIPD #### [facility] [address] [place], [place] [id number]/CREA11 RatioNormal6-22[place] Property Insurance Agent Comment on above:Performed By: #### CBCAD, CMP, LIPD #### [facility] [address] [place], [place] [id number] [Mass/Vol]10.0 mg/dLNormal8.6-10.2[place] Medical SpecialistComment on above:Performed By: #### CBCAD, CMP, LIPD #### [facility] [address] [place], [place] [id number] [Moles/Vol]103 mmol/YBygyvg50-214Uruditxx [place] Medical SpecialistComment on above:Performed By: #### CBCAD, CMP, LIPD #### [facility] [address] [place], [place] [id number] [Moles/Vol]30 mmol/AZbklnm38-21Vlgoxloy [place] Medical SpecialistComment on above:Performed By: #### CBCAD, CMP, LIPD #### [facility] [address] [place], [place] [id number] [Mass/Vol]1.1 mg/dLNormal0.7-1.4[place] Medical SpecialistComment on above:Performed By: #### CBCAD, CMP, LIPD #### [facility] [address] [place], [place] [id number] mL/min/1.16b3Daledh>60[place] Medical SpecialistComment on above:Performed By: #### CBCAD, CMP, LIPD #### [facility] [address] [place], [place] [id number] mL/min/1.72k8Btembg>60[place] Medical SpecialistComment on above:Performed By: #### CBCAD, CMP, LIPD #### [facility] [address] [place], [place] [id number] (S) [Mass/Vol]2.3 g/dLNormal1.9-3.7NoProtestant [facility]acon[facility] SpecialistComment on above:Performed By: #### RAEGAN, CMP, LIPD #### [facility] [address] [place], [place] [id number] [Mass/Vol]96 mg/bNNbnkyo39-61Noeorqpo [place] Medical SpecialistComment on above:Result Comment: For FASTING Glucose --- ADA reference ranges: Normal 65-99 mg/dl Prediabetes 100-125 Diabetes >/= 126Performed By: #### RAEGAN, CMP, LIPD #### [facility] [address] [place], [place] [id number] [Moles/Vol]4.3 mmol/LNormal3.5-5.5NoPro[facility]ant [facility]acon[facility] SpecialistComment on above:Performed By: #### RAEGAN, CMP, LIPD #### [facility] [address] [place], [place] [id number] [Mass/Vol]6.8 g/dLNormal6.1-8.1NortherBlanchard Valley [facility] SpecialistComment on above:Performed By: #### RAEGAN, CMP, LIPD #### [facility] [address] [place], [place] [id number] [Moles/Vol]143 mmol/YLmbdqp221-343Pbmrqkww [place] [facility] SpecialistComment on above:Performed By: #### RAEGAN, CMP, LIPD #### [facility] [address] [place], [place] [id number] nitrogen [Mass/Vol]12 mg/dLNormal7-25NortSalem Regional Medical Center SpecialistComment on above:Performed By: #### RAEGAN, CMP, LIPD #### [facility] [address] [place], [place] [id number] Panelon 93-15-3046Usjftqjjusd [Mass/Vol]162 mg/dLNormal 125-200NortSalem Regional Medical Center SpecialistComment on above:Result Comment: Low risk < 200mg/dL Borderline risk 201-239 mg/dl High risk > or equal to 240Performed By: #### CBCAD, CMP, LIPD #### [facility] [address] [place], [place] [id number] in HDL [Mass/Vol]59 mg/dLNormal>40NoProtestant [facility] SpecialistComment on above:Result Comment: High Cardiovascular Risk HDL <40 mg/dL Low Cardiovascular Risk HDL > or equal to 60 mg/dlPerformed By: #### CBCAD, CMP, LIPD #### [facility] [address] [place], [place] [id number] in LDL [Mass/Vol]79 mg/dLNormalNoProtestant [facility] SpecialistComment on above:Result Comment: LDL ATP III CLASSIFICATION LDL less than 100 mg/dl Optimal LDL 100-129 mg/dl Near or above optimal LDL 130-159 Borderline high LDL 160-189 High LDL greater than 189 mg/dl Very HighPerformed By: #### CBCAD, CMP, LIPD #### [facility] [address] [place], [place] [id number] in VLDL [Mass/Vol]24 mg/dLNormalNoPro[facility] SpecialistComment on above:Performed By: #### CBCAD, CMP, LIPD #### [facility] [address] [place], [place] [id number].total/Cholesterol in HDL [Mass ratio]3 {ratio} NormalNoProtestant [facility] SpecialistComment on above:Performed By: #### CBCAD, CMP, LIPD #### [facility] [address] [place], [place] [id number] [Mass/Vol]121 mg/sQFippsp03-175Kwbwmtlp [place] Medical SpecialistComment on above:Result Comment: TRIG ATPIII CLASSIFICATIONS TRIG less than 150 mg/dl Normal TRIG 150-199 mg/dl Borderline High TRIG 200-500 mg/dl High TRIG greather than 500 mg/dl Very HighPerformed By: #### CBCAD, CMP, LIPD #### [facility] [address] [place], [place] [id number] SCREEN (MEDICARE)on 56-75-6791RPSF6.940 ng/mLHigh<4.000 [facility] Medical SpecialistComment on above:Result Comment: PSA Test Method: ECLIA/Gilberto e 601Performed By: #### PSA #### [facility] [address] [place], [place] [id number] Vital Signs Date TimeVital SignValuePerforming HdudlgnzgReozqnql28-66-4522 11:19-0500Body .8 cmKaren Hemmer PA Work Phone: [facility] HospitalYrqsjrwaal66-63-7846 11:19-0500Body mass index (BMI) [Ratio]26.4 kg/c3Xiqrj Hemmer PA Work Phone: [facility] HospitalFdhfcohyse03-00-8145 11:19-0500Body hjkxya89.46 kgKaren Hemmer PA Work Phone: [facility] HospitalBwpuwkeohf43-94-0232 11:19-0500Diastolic blood azmrkbvc15 mm[Hg]Irina Hemmer PA Work Phone: [facility] HospitalRvntimmzxj36-12-7079 11:19-0500Heart rate84 /min Irina Hemmer PA Work Phone: [facility] HospitalEoloxnswub22-94-2072 11:19-0500Respiratory rate16 /minKaren Hemmer PA Work Phone: [facility] HospitalIcagoeskvy76-71-7414 11:19-5616JvV2% (BldA) [Mass fraction]93 %Irina Hemmer PA Work Phone: [facility] HospitalKhqlayqpcw07-43-0431 11:19-0500Systolic blood ybwfadrj322 mm[Hg]Irina Hemmer PA Work Phone: [facility] HospitalWwadeodwst39-10-4168 10:30-0400Body dzydhx364.8 cmCameron Leftronicgloria Other [employer] Other 09-27-2022 10:30-0400Body mass index (BMI) [Ratio] 22.67 kg/u6Uyouunz Distew Other [facility] [employer] Other 09-27-2022 10:30-0400Body zdxron20.67 kgOrlando Valencia Other [place] [employer] Other 09-27-2022 10:30-0400Diastolic blood nuscpuwe81 mm[Hg] Orlando Valencia Other [facility] [employer] Other 09-27-2022 10:30-0400Systolic blood exaglayu600 mm[Hg] Orlando Valencia Other [facility] [employer] Other 06-06-2022 12:15-0400Body fddjtxxitpz25.2 [degF] Josue Castro MD Work Phone: [employer]06-06-2022 12:15-0400Diastolic blood mm[Hg]Josue Castro MD Work Phone: [employer]06-06-2022 12:15-0400Heart rate77 /minJosue Castro MD Work Phone: [employer]06-06-2022 12:15-0400 Respiratory rate15 /minJosue Castro MD Work Phone: [employer]06-06-2022 12:15-8146MfA7% (BldA) [Mass fraction]98 %Josue Castro MD Work Phone: [employer]06-06-2022 12:15-0400Systolic blood rdxjzvie842 mm[Hg]Josue Castro MD Work Phone: [employer]06-06-2022 10:06-0400Body wphykk145.8 cmJosue Castro MD Work Phone: [employer]06-06-2022 10:06-0400Body mass index (BMI) [Ratio]22.96 kg/h1XcmoymoJosue Castro MD Work Phone: [facility]06-06-2022 10:06-0400Body nibgar20.58 kgJosue Castro MD Work Phone: [facility]05-27-2022 08:05-3042WnU0% (BldA) [Mass fraction]95 %Sta [facility]05-27-2022 08:02-0400Body kprafn506.8 cmSta [facility]05-27-2022 08:02-0400Body mass index (BMI) [Ratio]22.96 kg/m2Sta [address] [place], [place] [address]05-27-2022 08:02-0400Body kynvvznfujn19.7 [degF]Sta [facility]05-27-2022 08:02-0400Body cxlbio05.[address] [place], [place] 209[address]05-27-2022 08:02-0400Diastolic blood voaizzpx60 mm[Hg]Sta [address] [place], [place] [address]05-27-2022 08:02-0400Heart uwvb405 /minSta [address] [place], [place] [address]05-27-2022 08:02-0400Respiratory rate24 /min Sta [address] [place], [place] [address]05-27-2022 08:02-0400Systolic blood mm[Hg]Sta [address] [place] [address] Encounters Encounter DateEncounter TypeCare ProviderFacilityStart: 09-30-2025 End: 41-72-9780Lbnhlnmarianne OBRIEN Work Phone: [facility] [place] [facility] MedinceStart: 09-30-2025 End: 29-58-2251Whfsbjmarianne OBRIEN Work Phone: NO[facility] [place] [facility] MedinceStart: 09-30-2025 End: 68-25-5780Hwuwiauuronc care manage srvc 14 day dischargeIrina OBRIEN Work Phone: [facility] on above:Paroxysmal atrial fibrillation (HCC) (Primary Dx); Atherosclerosis of cloverdale coronary artery of cloverdale heart without angina pectoris; Centrilobular emphysema (HCC); Acute respiratory failure with hypoxia (HCC); Chronic obstructive pulmonary disease, unspecified COPD type (HCC); Oxygen dependent; Anxiety; Gastroesophageal reflux disease without esophagitis; Chronic respiratory failure with hypoxia (HCC); Major depressive disorder, recurrent, moderate (HCC); Chronic idiopathic constipationStart: 09-30-2025 End: 96-44-1139shhpeejnxtZAPDE M HEMMERNot AvailableStart: 09-06-2025 End: 36-78-6634Zylwidbbs Result EncounterGeneric External Data ProviderNOMS External Department UnsolicitedStart: 09-06-2025 End: 74-34-4354Anvfgzrus Result EncounterGeneric External Data ProviderNOMS External Department UnsolicitedStart: 08-01-2025 End: 61-01-7729mgnllgvvowScgalyu J BuckFacility: SURG CLINICStart: 07-23-2025 ambulatoryJosue CastroFacility: SURG CLINICStart: 07-16-2025 End: 80-72-4410pwrcvruahkNMTHDZ BERRYFacility: SURG CLINICStart: 05-13-2025 End: 33-84-1690Gdyfmvsnv encounterDacedric Mart MD Work Phone: [facility] CI FMStart: 02-07-2025 End: 61-65-0564Yjsjlelin OBRIEN Work Phone: [facility] FMStart: 02-07-2025 End: 32-24-9614Gbicje Rosangela OBRIEN Work Phone: [facility] CI FMStart: 02-07-2025 End: 28-28-7061sbpnozlyttCTUCAJono Shay AvailableStart: 06-02-2024 End: 33-26-4737Hfgehdjks Result EncounterRadames Mart MD Work Phone: [facility] External Department UnsolicitedStart: 06-02-2024 End: 19-53-4978Hhyrgfgii Result EncounterRadames Mart MD Work Phone: noms External Department UnsolicitedStart: 06-01-2024 End: 15-05-0240Bvjkkizwp Result EncounterRadames Mart MD Work Phone: noms External Department UnsolicitedStart: 06-01-2024 End: 26-28-6186Smmxyeugy Result EncounterRadames Mart MD Work Phone: noms External Department UnsolicitedStart: 04-04-2023 End: 83-57-8065kxitslegomYB DOCTOR MISCFacility:K3Eixsm: 02-05-2023 End: 52-43-2229rwlnxfsijdVS DOCTOR MISCFacility:P1Wjgha: 08-24-2022 End: 18-13-7106bjgqezrvweNyqkdpa Ditty Other [facility] [employer] Other Start: 99-70-6282YESH visit new patientCamjoseline [facility] GastroenterologyStart: 08-04-2022 End: 90-34-6441bzgttieanlEH DOCTOR MISCFacility:C2Eizvm: 07-26-2022 End: 72-35-6754rbtrjdujmoBX RADAMES MARTFacility:M6Chdvh: 05-03-2022 End: 96-45-8453piacxksasfHACFQSCGeorgetown Behavioral Hospital HospitalStart: 05-03-2022 End: 30-46-5370Vcyjmgseev hospital visit by physicianJosue Castro MD Work Phone: stAZ ORComment on above:PSA elevationStart: 04-23-2022 End: 49-11-6724ewqbbdmfldJYPJRUC [facility] HospitalStart: 04-23-2022 End: 42-08-0419ojyafnegtnEOJCKK B [facility] HospitalStart: 04-23-2022 End: 28-29-1841Vvprfrdkwa hospital visit by physicianSta [facility] RadiologyComment on above:ArrivedStart: 04-23-2022 End: 07-17-0685Nrhenuyvmk hospital visit by physicianSta Pat 1STAZ PRE-ADMIT TESTING Procedures DateProcedureProcedure DetailPerforming ClinicianStart: 85-02-8854MUPRL CULTURE 2Generic External Data ProviderStart: 15-91-7684SYFOM CULTURE 1Generic External Data ProviderStart: 20-64-4294HX CHEST 2Gaye Mart MD Work Phone: Start: 05-61-4807MY ABDOMEN PELVIS W Virgilio Mart MD Work Phone: Start: 99-22-7934IKE screeningDR DOCTOR MISCComment on above:Performed By: #### PSAD #### [facility] [address] [place] [address] Dr. Mireya Joyner: 54-05-9235VPE screeningDR DOCTOR MISCComment on above: Performed By: #### PSAD #### [facility] [address] [place] [address] Dr. Mireya Joyner: 14-79-6389MEV screeningDR DOCTOR MISCComment on above: Performed By: #### PSAD #### [facility] [address] [place] [address] Dr. Mireya Joyner: 15-81-2493Wdsgforsgq exam chest 2 viewsNdysabel Rider MD Work Phone: Start: 46-29-5813Fafodfkeisr panelNdysabel Rider MD Work Phone: Start: 30-12-5549Nmx routine ecg w/least 12 lds w/i&r Ndal Ashu Rider MD Work Phone: Start: 60-37-6865WpompvxuogmNyxgc Hemmer PA Work Phone: Plan of Treatment DateCare ActivityDetailAuthorStart: 14-84-5413Wyuvrsjei for malignant neoplasm of colonNOMS HealthcareStart: 11-25-2025 End: 49-87-9480Htmicdc encounter gxzybsyov42/29/2025 2:00 PM EST Office Visit [facility] [address] [place] [phone] Radames Mart MD [address] [place] [address] NOMVince Burgess MedinceStart: 09-30-2025 End: 03-40-5773Ymymvri encounter zfmvlyptd01/03/2025 11:00 AM EST Office [facility] [place] [facility] [address] [place] [address] Irina Bowman PA [address] [place] [address] ArrivedNOMS [place] Burgess MedinceComment on above:ArrivedStart: 78-96-5461GJLWO-19 Vaccine ( season)COVID-19 Vaccine ( season)NOMS HealthcareStart: 12-57-6690Zsjqaayij vaccinationInfluenza Vaccine (#1)[facility] HealthcareStart: 02-07-2025 End: 45-44-4096Nitpaki encounter iwpdfgnpm75/13/2025 1:00 PM EDT Office Visit [facility] [address] [facility] [address] [place] [address] Irina Bowman, PA [address] [facility] [address] [place] [address] ArrivedNOMS CI FMComment on above:ArrivedStart: 69-28-0406Qcaxyckzk vaccinationInfluenza Vaccine (#1)[facility]OM[facility] HealthcareStart: 76-98-9959Orfam panelLipidsBON MEMORIAL HOSPITALStart: 61-85-8067Glpjtissz vaccinationFlu vaccine (Season Ended)[facility]ITALStart: 05-03-2022 End: [id number] to same day surgery dnplat1205/03/2022 Surgery IP Unit Josue Castro MD [address] [facility] [address] [place], [place] [id number] FUSION PROSTATE BIOPSY WITH ULTRASOUND MRI WAS AT [facility] ON [place] ORComment on above:FUSION PROSTATE BIOPSY WITH ULTRASOUND MRI WAS AT [facility] ON art: 05-03-2022 End: 98-76-4009Nbbwicdfdq bugretdmwntr39/06/2022 Anesthesia Event IP Unit Fish Rider MD [address] [place] [address] STABryant ORStart: 08-23-1596Kuqdmbgthg hospital visit by cfuddtsjb80/06/2022 Hospital Encounter IP Unit Josue Castro MD [address] [facility] [address] [place] [address] JESSICA ORStart: 05-03-2022 End: 20-95-3151Suytvy prostate incisional any [facility]: 35-20-9134Ixsrcvdgzplo 65+ years Vaccine (2 - PCV)Pneumococcal 65+ years Vaccine (2 - PCV)[facility]Start: 49-43-2957Nsicyhdkf aortic aneurysm screeningAAA screenPoplar Springs Hospitalart: 2002 Shingles vaccine (1 of 2)Shingles vaccine (1 of 2)[facility]SStart: 87-84-8716Edqkwskmt for malignant neoplasm of colonCOMMUNITY HEALTH SYSTEMS Start: 89-14-8185Usugewbn specific antigen measurementProstate Specific Antigen (PSA) Screening or MonitoringPoplar Springs Hospitalart: 03-26-1992 DTaP/Tdap/Td Vaccines (2 - Td or Tdap)DTaP/Tdap/Td Vaccines (2 - Td or Tdap)[facility] HospitalStart: 67-64-3140VLeK/Tdap/Td vaccine (1 - Tdap)DTaP/Tdap/Td vaccine (1 - Tdap)[facility]Start: 01-10-8235Ukkvbodqh C screening Hepatitis C screenNaval Medical Center Portsmouth: 46-64-9349Wrkstlymtk Screen Depression ScreenPoplar Springs Hospitalart: 50-57-8053Vilsqv Wellness Visit (AWV)Annual Wellness Visit (AWV)[facility] HOSPITALWeLinkStart: 1950 Screening for malignant neoplasm of colonNOMS HealthcareBLOOD CULTURE 1BLOOD CULTURE 1 Lab Routine 09/06/2025 10:14 PM EDTNOMS HealthcareBLOOD CULTURE 2BLOOD CULTURE 2 Lab Routine 09/06/2025 11:10 PM EDTNOMS HealthcareContinuous pulse oximetryPulse oximetry, continuous Respiratory Care Routine Every 4hr until discontinued starting 05/04/2022[facility]We[facility] Work Phone: Comment on above:Every 4hr until discontinued starting 05/04/2022urgical PathologySurgical Pathology Lab Routine PSA elevation Release Upon Ordering for 1 Occurrences starting 05/03/2022FIRSTHEALTHARKeX Phone: Comment on above:Release Upon Ordering for 1 Occurrences starting 05/03/2022 End: 22-16-3067QUVTPCUY PATHOLOGY REPORTSURGICAL PATHOLOGY REPORT Lab Routine Once for 1 Occurrences starting 05/03/2022 until 05/03/2022[facility]ALTHWe[facility] Work Phone: comment on above:Once for 1 Occurrences starting 05/03/2022 until 05/03/2022 Immunizations Immunization DateImmunizationNotesCare QaomzknqBddwhkfl33-24-2094Tjatyutv trivalent influenza vaccine, adjuvanted, preservative freeIrina Bowman PA Work Phone: noResearch Medical Center-Brookside CampusGybadparlt32-50-9154Uagqpgweu, High-dose Seasonal, Quadrivalent, Preservative FreeIrina Bowman PA Work Phone: NOResearch Medical Center-Brookside CampusMqeltnfxlp07-50-1837Rlaunzcrplcv Conjugate PCV 20 Irina Hemmer PA Work Phone: noResearch Medical Center-Brookside CampusGolkncyvxl34-55-4483gdpihqvrr virus vaccine, unspecified formulationYimien Hemmer PA Work Phone: NOResearch [facility]ok[facility] CampusPbxgbuwrex44-01-8676Vbzuqssjr, Seasonal, Quadrivalent, AdjuvantedYimien Hemmer PA Work Phone: NORes[facility]ok[facility] CampusFhezrgizqx01-25-2517Udhzscsfz, Seasonal, Quadrivalent, AdjuvantedKaren Hemmer PA Work Phone: [facility] HospitalOatwuaaaju27-17-1816ANOOU-59, Pfizer Purple top, DILUTE for use, 12+ yrs, 30mcg/0.3mL doseSta [facility] Work Phone: [phone]-05, Pfizer Purple top, DILUTE for use, 12+ yrs, 30mcg/0.3mL doseSta [facility] Work Phone: [phone]-01, Pfizer Purple top, DILUTE for use, 12+ yrs, 30mcg/0.3mL doseSta [facility] Work Phone: [phone]m, high dose seasonal, preservative-freeKaren Hemmer PA Work Phone: [facility] HospitalSsngqsbkns81-03-2014Gurclartp, High-dose Seasonal, Quadrivalent, Preservative FreeKaren Hemmer PA Work Phone: [facility] HospitalBhqvheefef44-60-7649ahwdbq vaccine recombinant Irina Hemmer PA Work Phone: [facility] HospitalWrcbeftepc97-67-2360dfbrrlfufqcd polysaccharide vaccine, 23 valentKaren Hemmer PA Work Phone: [facility] HospitalJwbkslqyhn08-11-0819dlqeco vaccine recombinant Irina Hemmer PA Work Phone: [facility] HospitalXusxfnhdge80-15-4359byjnfphwm, high dose seasonal, preservative-freeKaren Hemmer PA Work Phone: [facility] HospitalSvgeilxnyz45-75-5269Xxwejuxrs, High-dose Seasonal, Quadrivalent, Preservative FreeKaren Hemmer PA Work Phone: [facility] HospitalUvkxcanwmy28-38-3587xvlblxopfzwg polysaccharide vaccine, 23 valentKaren Hemmer PA Work Phone: [facility] HospitalCkazyvmzte18-20-7725yxrgprqsi, high dose seasonal, preservative-freeKaren Hemmer PA Work Phone: [facility] HospitalLilxbkclew66-50-5234fgripfqji, injectable, quadrivalent, contains preservativeKaren Hemmer PA Work Phone: [facility] HospitalMoexyaupmv12-14-4688jqabdartx, injectable, quadrivalent, preservative freeKaren Hemmer PA Work Phone: [facility] NetworkResearch Medical Center-Brookside CampusCwuwdeodwf33-62-7938xipuljzbt virus vaccine, unspecified formulationKaren Hemmer PA Work Phone: [facility] NetworkResearch Medical Center-Brookside CampusKqezidginv08-35-4813oeqqasofm virus vaccine, unspecified formulationKaren Hemmer PA Work Phone: [facility] HospitalQsnuurromn93-93-2904hbshwqcpv virus vaccine, unspecified formulationKaren Hemmer PA Work Phone: [facility] NetworkResearch Medical Center-Brookside CampusFkwjjufprq52-08-8814gqtbraryyugp polysaccharide vaccine, 23 valentKaren Hemmer PA Work Phone: [facility] NetworkResearch Medical Center-Brookside CampusLnsqbfbfsr32-06-3214orlqqqm toxoid, reduced diphtheria toxoid, and acellular pertussis vaccine, adsorbedKaren Hemmer PA Work Phone: [facility] Payers DatePayer CategoryPayerPolicy [id number] Health InsuranceAARP [id number] 2017MedicareMEDICARE [id number] [id number] Health Insurance [id number] [id number] 2.16.840.1.696488.3.57[id number] 2.16.840.1.530793.3.57[id number] 2.16840.1.741387.3.57[id number] 2.16.840.1.666189.3.57[id number] 2.16.840.1.267164.3.57[id number] 2.16.840.1.916768.3.57[id number] 2.16.840.1.890741.3.57[id number] 2.16.840.1.798933.3.57[id number] 2.16.840.1.645266.3.57[id number] 2.16.840.1.687858.3.57[id number] 2.16840.1.464863.3.57[id number] 2.16.840.1.770004.3.579.2.1259 Social History DateTypeDetailFacilityStart: 04-23-2022 End: 78-18-3210Ypicspt smoking status NHISEx-smokerDisclosureNet Inc. Phone: End: 79-84-7363Jwlxort of tobacco useCurrent smokerBANNER Chatterous Phone: start: 04-23-2022 End: 70-84-2364Losrlfn use and exposureSmokeless tobacco non-userDisclosureNet Inc. Phone: start: 04-23-2022 End: 73-90-8061Blqcbdj intakeCurrent drinker of alcohol (finding)[employer] Phone: start: 04-23-2022 End: 00-20-7455Jyfwpwy intakeBANNER Chatterous Phone: start: 09-81-4960Pte Assigned At BirthNot on fileDisclosureNet Inc. Phone: start: 04-23-2022 End: 79-31-1954Cjrgdivb to SARS-CoV-2 (event)Not sureDisclosureNet Inc. Phone: start: 05-23-2024 End: 36-93-3106Wkl Assigned At [facility] [employer] Other History of tobacco useCigarette SmokerNOIN Healthcare Start: 27-85-2963Pdhfcta Commentcaffeine 1-2 cups per dayUTAH STATE HOSPITAL HealthcareStart: 10-14-8166DraFzkxTFPF Healthcare Functional Status WjchDndyshgwklAekbaeYrhipqnx14-08-4510Ysezutr Health Questionnaire 2 item (PHQ- 2) [Reported][facility] HospitalSatgcannlm01-61-5291Dyycjrd Health Questionnaire 2 item (PHQ- 2) [Reported][facility] Clinical Notes 04-23-2022 to 09-30-2025 Note Date & ApphTerbQlerocif47-92-2080 History of Present illness Narrative* MICAH Taylor - 09/30/2025 11:00 AM EST Images from the original note were not included. Subjective Patient ID: Brian Quezada is a 75 y.o. male who presents for TB and alf follow up. Flowsheet Row Patient Outreach from 09/27/2025 in [facility] with Michela Palmer LPN Hospital Information ED, Hospital or Care Home Facility Discharge? Care Home Facility Patient has been contacted within two business days of discharge Yes Have two attempts been made to contact the patient within two business days of being discharged? Yes Discharge Date 09/25/25 Discharged To: Home Setting Care Home Facilities [facility] Engagement Admission Date 09/17/25 Medications Discharge medications reviewed and reconciled from hospital? No Prescription Comments Xenia states that she is looking at both the meds from [facility] list and from the [place] I advised her to bring in the med list from [facility] and [facility] to his appt on tuesday Is the [...] too short of a program, was at [facility] [place]. Has completed the Prednisone. States cannot afford to continue the Eliquis. Wants to go back to the Plavix. States it worked wellfor him for years and he would like to just continue with the Plavix. Did have one BM the whole time he was in [facility]. Only one while at [facility]. States has had two BM's since being home. Did get a bedsore while at [facility], using Silvex Wound Gel. Per , it [...] 1 kit Daily 1 kit 0 [DISCONTINUED] Kvsswal-Xcwysnwpyec-Zegcutrerb (Breztri Aerosphere) 160-9-4.8 MCG/ACT aerosol Inhale2 puffs [...] four times a day currently. Atherosclerosis of cloverdale coronary artery of [place] heart without angina pectoris Continue nitroglycerin as needed for acute chest pain. Follow up with Cardiology as scheduled. Centrilobular emphysema (HCC) Continue Duo-nebs as needed. Supplemental oxygen. Acute respiratory failure with hypoxia (HCC) Symptoms are improving since being hospitalized. Continues with marked limitations. Chronic obstructive pulmonary disease, unspecified COPD type (HCC) - Dtvrwhr-Xpzqzszorky-Aamfvfgfny (Breztri Aerosphere) 160-9-4.8 MCG/ACT aerosol; Inhale 2 [...] stay as follows: Patient was seen at [facility] ER on 09/07/2025. Was admitted for [...] Up with Dr. Mart). documented in this encounterSaint John's Aurora Community HospitalGupmvgwetl79-20-6000 Note From: Drea Chopra (Urology Clinical [place] ([facility])) Sent: 07/31/2025 14:24:29 EDT Subject: General Message Caller Name: EVON BRIAN Mendez; Caller Number: H , M Pt called stated had not received medication Orgovyx sent to [facility]. Spoke with Pharmacist Arlette, who stated she was waiting for insurance coverage ID # and pt should be receiving medication soon by delivery. Pt called and notified. [facility] HospitalGnddvdtb35-50-1370 Note From: Drea Chopra Sent: 07/17/2025 08:14:01 EDT Subject: General Message Caller Name: KYLER QUEZADANY Vanessa; Caller Number: H , M Refill request Orgovyx (Relugolix) 120mg tablet, 1 tablet orally once a day, #30, 11 refills. Sent to [facility] ([facility]). Needs to be seen in office in 3-4 months. Pt next appointment must kept for more refills per Dr. Castro.[facility] HospitalPjzbrbgu57-02-1810 Telephone encounter Note* Telephone Encounter - Lolita Mccoy - 05/29/2025 1:52 PM EDT Lvm 3rd attempt to contact no contact letter sent [facility] HospitalXkkohmwavj39-26-7732 Miscellaneous Notes* Telephone Encounter - Lolita Infantejhon - 05/29/2025 1:52 PM EDT Lvm 3rd [...] trying to schedule appt documented in this encounterSaint John's Aurora Community HospitalTvetofqywy45-51-0699 Telephone encounter Note* Telephone Encounter - Lolita Allisonleif - 05/20/2025 9:28 AM EDT Patient stated they will call back and schedule within the next couple of days [facility] HospitalHcaoyakocv99-12-6203 Telephone encounter Note* Telephone Encounter - Lolita Infantejohn - 05/13/2025 3:38 PM EDT Paitent is overdue for mawv - lvm trying to schedule appt [facility] HospitalQextccfnhn56-66-7890 Evaluation note* Encounter Date Diagnosis Assessment Notes Treatment Notes Treatment Clinical Notes Jul, Abdominal distension (ICD-10 - R 14.0) Jul,onstipation (ICD-10 - K59.00)OBTAIN COLONOSCOPY FROM [facility] MAY USE LINZESS NEEDED F/U PRN [employer] Other 06-06-2022 Hospital Discharge instructions* Instructions* Josue [...] Josue Castro MD documented in this encounterBON HENRY MAYO NEWHALL MEMORIAL HOSPITALEncompass Office Solutions Work Phone: 1(257) 779-276005-27-2022 History of Present illness Narrative* Erin Mclaughlin, ELECTRICAL TRANSMISSION ENGINEER - OFFICE COORDINATOR - 04/23/2022 8:00 AM EDT PAT Progress Note Pt Name: Brian Quezada Birthdate: 1950 Date of evaluation: 04/23/2022 [x] Called to PAT. I spoke to the patient, Brian Quezada, a 71 y.o. male, who is scheduled for an upcoming FUSION PROSTATE BIOPSY WITH ULTRASOUND MRI WAS AT [facility] ON 03/12 by Josue Castro MD for [...] ms QTc Calculation (Bazett) 410 ms P [place] 88 degrees R [place] 42 degrees T [place] 81 degrees CBC Collection Time: 04/23/22 9:11 [...] 04/23/2022 at 1:55 PM documented in this encounterBANNER Chatterous Phone: evaluation note* Diagnosis PSA elevation Elevated prostate specific antigen (PSA) documented in this encounter [employer] Phone: evalxeirde note* Diagnosis Paroxysmal atrial fibrillation (HCC)- Primary Atrial fibrillation Atherosclerosis of cl[place]dale coronary artery of [place] heart without angina pectoris Centrilobular emphysema (HCC) [...] HistoryherniaSurgical Historycardiac stentSurgical Historywisdom teethHospitalization Historysee above [employer] Other Reason for visit Narrative* Auth/CertSpecialty Diagnoses / ProceduresReferred By ContactReferred To Contact Diagnoses Elevated PSA DX ELEVATED PSA Procedures DC BIOPSY OF PROSTATE,INCISIONAL FUSION PROSTATE BIOPSY WITH ULTRASOUND MRI WAS AT [facility] ON 03/12 Josue Castro MD [address] [place] [address] [employer] [address] [place] [address] Referral IDStatusReasonStart DateExpiration DateVisits RequestedVisits [id number] [employer] Work Phone: Summary Purpose Family History No [...] section and content) DATE CREATED AUTHOR 02/05/2022 [facility] Property Insurance Agent DATE CREATED AUTHOR AUTHOR'S ORGANIZ ATION 05/07/2022 [facility] DATE CREATED AUTHOR AUTHOR'S ORGANIZ ATION 04/08/2023 [facility] DATE CREATED AUTHOR AUTHOR'S ORGANIZ ATION 08/02/2025 [facility] DATE CREATED AUTHOR AUTHOR'S ORGANIZ ATION 10/01/2025 [facility] Medical Specialists EPIC Care Teams (unrecognized sec tion and content) Team MemberRelationshipSpecialtyStart DateEnd Date Radames Mart MD [address] [facility] [address] [place] [address] PCP - GeneralInternal Medicine04/23/22Team MemberRelationshipSpecialtyStart Date End Date Radames Mart MD [address] [facility] [address] [place] [address] PCP - GeneralInternal Medicine04/23/22Team MemberRelationshipSpecialtyStart Date End Date Radames Mart MD [address] [place] [address] PCP - GeneralTucson Heart Hospitalnal Medicine04/23/22Team MemberRelationshipSpecialtyStart Date End Date Radames Mart MD [address] [place] [address] PCP - ACO [facility]04/21/23 Radames Mart MD [address] [place] [address] PCP - GeneralUint[facility]06/16/23Team MemberRelationshipSpecialtyStart Date End Date Radames Mart MD [address] [place] [address] PCP - ACO [facility]04/21/23 Radames Mart MD [address] [place] [address] PCP - GeneralUintah Basin Medical Center06/16/23Team MemberRelationshipSpecialtyStart Date End Date Radames Mart MD [address] [place] [address] PCP - ACO [place]04/21/23 Radames Mart MD [address] [place] [address] PCP - [facility]06/16/23Team MemberRelationshipSpecialtyStart Date End Date Radames Mart MD [address] [place] [address] PCP - [facility]04/21/23 Radames Mart MD [address] [facility] [address] [place] [address] [facility]06/16/23Team MemberRelationshipSpecialtyStart Date End Date Radames Mart MD [address] [facility] [address] [place] [address] [facility] - [facility]04/21/23 Radames Mart MD [address] [facility] [address] [place] [address] [facility]06/16/23Team MemberRelationshipSpecialtyStart Date End Date Radames Mart MD [address] [facility] [address] [place] [address] [facility]04/21/23 Radames Mart MD [address] [facility] [address] [place] [address] [facility]06/16/23 Scheduled Active and Recently Administ ered Medications (unrecognized section and content) Medication Order//04/2022 ceFAZolin (ANCEF) 2000 mg in dextrose 5 % 50 mL IVPB (COMPLETED) 2,000 mg, IntraVENous, ONCE, 1 dose, On Tue05/03/22 at 1130, Antimicrobial Indications: Surgical Prophylaxis, Pre-op (day of surgery), STAT * 1120 (Given - Provider: Luna Barfield, ELECTRICAL TRANSMISSION ENGINEER - SUPERVISOR PLATE FORMING) sodium chloride flush 0.9 % injection 5-40 [...] 1115 (NoRateChange - Provider: FAITH Stanton SUPERVISOR PLATE FORMING) * 1133 (Rate/Dose Change - Provider: FAITH Stanton SUPERVISOR PLATE FORMING) * 1215 (Stopped - Provider: Drea Keyes [...] BE BASED ON THE PRIMARY CLINICAL RECORDS. [employer] provides no warranty or guarantee of the accuracy or completeness of information in this document.
[2025-10-17] MEDS: IPRATROPIUM/ALBUTEROL SULFATE 3 ML AMPUL.NEB IH (23:48)
[2025-10-18] VITALS (49 sets, daily range): BP systolic 88–156; BP diastolic 49–105; PULSE 67–107; RESP 14; TEMP 37.1–37.6; O2SAT 86–96
--- OUTSIDE RECORDS SUMMARY | 2025-10-18 00:02 | XMS_ITS | CCD ---
Author Organization [facility] Care Team Providers Care Talent Development Analyst Name Role Phone Radames Mart MD Primary Care Provider [phone] JOSUE CASTRO Admitting Unavailable JOSUE CASTRO Attending [...] LAU Attending Unavailable Radames Mart MD Unavailable [phone] Radames Mart MD Primary Care Provider Josue Castro Attending Unavailable RADAMES MART Primary Care Unavailable Josue Castro Attending Unavailable RADAMES MART Primary Care Unavailable RADAMES MART Primary Care Unavailable Josue Castro Attending Unavailable IRINA BOWMAN Attending Unavailable IRINA BOWMAN Attending Unavailable Allergies Allergy ClassificationReported Allergen(s)Allergy TypeDate of OnsetReaction(s) Facility (1 source)TheophyllineDrug AllergydizzinessNorth [facility] Other (1 source)Dust; Translations: [Dust]Propensity to adverse reactions (disorder) [facility] (2 sources)House dust miteAllergy to tcjdicnxb61-79-9775[facility] Work Phone: Medications Current Medications MedicationDrug Class(es)DatesSig (Normalized)Sig (Original)30 actuat aclidinium bromide 0.4 mg/actuat dry powder inhaler (4 sources)Start: 17-89-7089Zcstmro Pressair 400 MCG/ACT inhaler Indications: Centrilobular emphysema [...] the morning and at bedtime 0 ActiveAclidinium Clifton 400 MCG/ACT (1 source)take 1 puff(s) by inhalation once dailyAclidinium Clifton 400 MCG/ACT 1 puff Inhalation daily Activealbuterol 0.833 mg/ml / ipratropium bromide 0.167 mg/ml inhalation solution (5 sources)Anticholinergic, beta2-Adrenergic AgonistStart: 02-07-2025 ipratropium-albuterol (Duo-Neb) 0.5-2.5 mg/3 mL nebulizer solution Indications: Centrilobular emphysema (HCC) Take 3 mL by nebulization 4 (four) times a day as needed for wheezing or shortness of breath 150 mL 5 02/07/2025 ActiveALPRAZolam 0.25 mg oral tablet (2 sources)BenzodiazepineStart: 09-30-2025 End: 51-64-4167djze 1 tablet by mouth every twenty-four hours as needed for anxiety and anxiety and anxietyALPRAZolam (Xanax) 0.25 MG tablet Indications: Anxiety Take 1 tablet (0.25 mg) by mouth Daily as needed for anxiety 30 tablet 09/30/2025 10/30/2025 Activebicalutamide 50 mg oral tablet (1 source)Androgen Receptor Inhibitortake 1 tablet by mouth every twenty-four hoursBicalutamide 50 MG 1 tablet Orally Once a day Rrxllo128 actuat budesonide 0.16 mg/actuat / formoterol fumarate 0.0045 mg/actuat metered dose inhaler (1 source)Corticosteroid, beta2-Adrenergic Agonisttake 2 puff(s) by inhalation twice dailyBudesonide-Formoterol Fumarate 160-4.5 MCG/ACT 2 puffs Inhalation Twice a day Wriber494 actuat budesonide 0.16 mg/actuat / formoterol fumarate 0.0048 mg/actuat / glycopyrrolate 0.009 mg/actuat metered dose inhaler (7 sources)Corticosteroid, beta2-Adrenergic AgonistStart: 86-31-3711lkzk 2 puff(s) by inhalation in the ufhsicgGkvuaai-Jvkdbghqvoo-Kmtdrzqoez (Breztri Aerosphere) 160-9-4.8 MCG/ACT aerosol Indications: Chronic obstructive pulmonary disease, unspecified COPD type (HCC) Inhale 2 puffs in the morning and 2 puffs before bedtime. 09/30/2025 ActiveStart: 02-07-2025 End: 17-33-3690zrcz 2 puff(s) by inhalation in the morning Vhfqyjl-Ourkalhdjfd-Zjrrkbaefk (Breztri Aerosphere) 160-9-4.8 MCG/ACT aerosol Indications: Chronic obstructive pulmonary disease, unspecified COPD type (HCC) Inhale 2 puffs in the morning and 2 puffsbefore bedtime. 10.7 g 5 02/07/2025 09/30/2025 Discontinued (Reorder)calcium chloride 0.0014 meq/ml / potassium chloride 0.004 meq/ml / sodium chloride 0.103 meq/ml / sodium lactate 0.028 meq/ml injectable solution (1 source)Start: 62-14-5833dhjjyfts ringers infusionStart: 27-49-6538mdtmptbw ringers infusionclopidogrel 75 mg oral tablet (11 [...] 2 mg oral tablet (10 sources)alpha-Adrenergic BlockerStart: 12-94-7474tkin 1 tablet by mouth at bedtimedoxazosin (Cardura) 2 MG tablet Take 2 mg by mouth at bedtime 02/03/2024 ActiveStart: 93-75-0382XCPMMGLRO MESYLATE POtake 1 tablet by mouth every twenty- four hoursDoxazosin Mesylate 2 MG 1 tablet Orally Once a day Activeezetimibe 10 mg / simvastatin 40 mg oral tablet (8 sources)HMG-CoA Reductase Inhibitor, Dietary Cholesterol Absorption Inhibitor ezetimibe-simvastatin (Vytorin) 10-40 MG tablet 1 (one) time each day at the same time. Bkcobb77 actuat fluticasone propionate 0.25 mg/actuat / salmeterol 0.05 mg/actuat dry powder inhaler (2 sources)Corticosteroid, beta2-Adrenergic Agonisttake 1 puff(s) by inhalation every twelve hoursfluticasone-salmeterol (ADVAIR) 250-50 MCG/ACT AEPB diskus inhaler Inhale 1 puff into the lungs every 12 hours 0 Qatncy94 ml lidocaine hydrochloride 10 mg/ml injection (1 source)Antiarrhythmic, Amide Local AnestheticStart: 05-04-2022 End: 72-23-0990dizrwmnyy PF 1 % injection 1 mLnitroglycerin 0.4 mg sublingual tablet (3 sources)Nitrate VasodilatorStart: 54-63-6222pcffwbljoxwmy (Nitrostat) 0.[address] 0.4 mg under the tongue every 5 (five) minutes if needed for chest pain 09/05/2025 ActiveOxygen (8 sources)oxygen (O2) gas Inhale 2 L/min continuously. ActiveOxygen 2 liters (1 source)Oxygen 2 liters Activepantoprazole 40 mg delayed release oral tablet (2 sources)Proton Pump InhibitorStart: 71-99-1634zurf 1 tablet by mouth in the morningpantoprazole (ProtoNix) 40 MG EC tablet Indications: Gastroesophageal reflux disease without esophagitis Take 1 tablet (40 mg) by mouth in the morning. Do not crush, chew, or split. 90 tablet 3 09/30/2025 Activerelugolix (Orgovyx) 120 MG tablet (3 sources)Start: 89-80-2789ucbq 1 tablet by mouth once dailyrelugolix (Orgovyx) 120 MG tablet Take 120 mg by mouth Daily. 07/17/2025 ActiveRespiratory Therapy Supplies (Nebulizer/Tubing/Mouthpiece) kit (5 sources)Start: 69-81-4088Fzcslknwcih Therapy Supplies (Nebulizer/Tubing/Mouthpiece) kit Indications: Centrilobular emphysema(HCC) [...] 5-40 mLWixela Inhub 500-50 MCG/DOSE (1 source)Start: 43-34-9744jjtq 1 puff(s) by inhalation twice dailyWixela Inhub 500-50 MCG/DOSE 1 puff Inhalation Twice a day for 30 days Apr, Active Completed/Discontinued Medications MedicationDrug Class(es)DatesSig (Normalized)Sig (Original)albuterol 0.83 mg/ml inhalation solution (7 sources)beta2-Adrenergic AgonistStart: 07-10-2025 End: 66-24-6920jpjbfuvta (2.5 MG/3ML) 0.083% nebulizer solution Take 2.5 mg by nebulization every 6 (six) hours ifneeded for wheezing or shortness of breath 07/10/2025 09/30/2025 DiscontinuedStart: 59-72-3789ytrgdakls (2.5 MG/3ML) 0.083% nebulizer solution Indications: Centrilobular [...] tablet (3 sources)Factor Xa InhibitorStart: 09-24-2025 End: 75-05-6542tvmb 1 tablet by mouth in the morningEliquis 5 MG tablet Take 5 mg by mouth in the morning and 5 mg before bedtime. 09/24/2025 09/30/2025 Discontinued (Cost of medication)linaclotide 0.145 mg oral capsule (7 sources)Guanylate Cyclase-C AgonistStart: 01-24-2024 End: 61-54-1756ksge 1 capsule by mouth before mealtimelinaCLOtide (Linzess) 145 MCG capsule Indications: Chronic idiopathic constipation Take 1 capsule (145 mcg) by mouth in the morning. Take before meals. Do not crush or chew.. 30 capsule 11 Discontinued (Cost of medication)Linzess PRN Activemirtazapine 15 mg oral tablet (14 sources)Start: 09-24-2025 End: 49-86-1456zypr 1 tablet by mouth at bedtimemirtazapine (Remeron) 15 MG tablet Take 15 mg by mouth at bedtime 09/24/2025 09/30/2025 Discontinued (Therapy completed)Start: 21-56-6489zxhe 1 tablet by mouth at bedtimemirtazapine (Remeron) [...] tablet (11 sources)Proton Pump InhibitorStart: 02-03-2024 End: 56-38-3097xrqg 1 tablet by mouth before mealtimeomeprazole OTC (PriLOSEC OTC) 20 MG EC tablet Take 20 mg by mouth in the morning. Take before meals. 02/03/2024 09/30/2025 Discontinuedtake 1 capsule by mouth once dailyPriLOSEC 20 MG 1 capsule Orally Once a day for 30 day(s) Activeprazosin 5 mg oral capsule (5 sources)alpha-Adrenergic Alex End: 58-42-9562uoga 1 capsule by mouth at bedtimeprazosin (Minipress) 5 MG capsule Take 5 mg by mouth at bedtime 09/30/2025 Discontinuedtriamcinolone acetonide 0.055 mg/actuat metered dose nasal spray (8 sources)Corticosteroid End: 42-49-0310rwgxhwddtbhtd (Nasacort Allergy 24HR) 55 MCG/ACT nasal inhaler 1 (one) time each day at the same time. 09/30/2025 Discontinued (Therapy completed) Problems Active Problems Problem ClassificationProblemDateDocumented DateEpisodic/ChronicAnxiety disorders (18 sources)Anxiety; Translations: [Anxiety disorder, unspecified]Onset: 840644-66-2778WrmsuplSmiauvqgl and vision defects (3 sources)Diplopia; Translations: [Diplopia]Onset: 955965-27-1123Imskckoh Cancer of prostate (13 sources)Malignant neoplasm of prostate; Translations: [Malignant tumor of prostate]Onset: 61-74-6403IkumfghIurybyz dysrhythmias (4 sources)Paroxysmal atrial fibrillation; Translations: [Paroxysmal atrial fibrillation]Onset: 714558-17-0741SvayqxrGqfdpkyv (8 sources)Bilateral age-related nuclear cataracts; Translations: [Age-related nuclear cataract, bilateral]Onset: 330363-61-9994IiuxfxvMwyzemw obstructive pulmonary disease and bronchiectasis (20 sources)Emphysema; Translations: [Emphysema, unspecified]Onset: 06-15-2023 18-08-4393CmadvyxJxlwlouc atherosclerosis and other heart disease (10 sources)Coronary atherosclerosis; Translations: [Atherosclerotic heart disease of [place] coronary artery without angina pectoris]Onset: 06-15-2023 70-52-3547MhvjihrQyhmyqhak of lipid metabolism (16 sources)Pure hypercholesterolemia; Translations: [Pure hypercholesterolemia, unspecified]Onset: 614861-47-8195QbvjprhQfiaiflrqo disorders (10 sources)Gastroesophageal reflux disease; Translations: [Gastro-esophageal reflux disease without esophagitis]Onset: 185086-97-0440HusemofWaxiulkwovj of prostate (1 source)Benign prostatic hyperplasia with lower urinary tract symptoms; Translations: [Benign prostatic hyperplasia with lower urinary tract symptoms] Onset: 27-48-0548FnkdzvfRpmgiaevdfulb and screening for infectious disease (1 source)Contact with and (suspected) exposure to tuberculosis; Translations: [Exposure to tuberculosis (event)]EpisodicMood disorders (10 sources)Major depressive disorder; Translations: [Major depressive disorder, single episode, unspecified]Onset: 471235-92-6948TeknqhqHajrj connective tissue disease (8 sources)Cramp in lower limb; Translations: [Sleep related leg cramps]Onset: 469502-38-5111LvdketsRygqq diseases of kidney and ureters (1 source)Other obstructive and reflux uropathy; Translations: [Other obstructive and reflux uropathy]Onset: 11-42-1611ApfilyikRajbg gastrointestinal disorders (2 sources)Chronic idiopathic constipation; Translations: [Chronic idiopathic constipation]99-88-1449QsrhpvvAolzf gastrointestinal disorders (1 source)Flatulence, eructation and gas pain; Translations: [Abdominal distension (gaseous)]EpisodicOther gastrointestinal disorders (1 source)Abdominal distension (gaseous)EpisodicOther gastrointestinal disorders (1 source)Constipation, unspecifiedEpisodicOther lower respiratory disease (1 source)Multiple nodules of lung; Translations: [Other nonspecific abnormal finding of lung field]EpisodicPeripheral and visceral atherosclerosis (8 sources)Peripheral vascular disease; Translations: [Peripheral vascular disease, unspecified]Onset: 024304-32-0140OqghryvRoptbrrvehv failure; insufficiency; arrest (adult) (14 sources)Dependence on supplemental oxygen; Translations: [Dependence on supplemental oxygen]Onset: 406093-89-0243BlwvzarJpfuguvtxgo failure; insufficiency; arrest (adult) (2 sources)Acute respiratory failure; Translations: [Acute respiratory failure with hypoxia]57-63-5913Ymjxwpab Past or Other Problems Problem ClassificationProblemDateDocumented DateEpisodic/ChronicOther and unspecified benign neoplasm (8 sources)History of polyp of colon; Translations: [History of colonic polyps] Onset: 639772-98-0653ZssjethsWkxlf connective tissue disease (8 sources)Cramp in lower leg associated with rest; Translations: [Cramp and spasm]Onset: 857893-45-3518RbcqsvkuVkgjw gastrointestinal disorders (9 sources)Constipation; Translations: [Constipation, unspecified]Onset: 566674-27-8667NpdgmwhvNidep lower respiratory disease (8 sources)Nodule of lung; Translations: [Solitary pulmonary nodule]Onset: 447828-74-3353KbhocmmtJctaq screening for suspected conditions (not mental disorders or infectious disease) (9 sources)Raised prostate specific antigen; Translations: [Elevated prostate specific antigen [PSA]]Onset: 10-96-2131GeuxvubzFuuwcrxh codes; unclassified (7 sources)Contact with and (suspected) exposure to other hazardous substances; Translations: [Contact with and (suspected) exposure to other potentially hazardous substances]Onset: 552940-42-2800Ttyosmmf Results Test NameValueInterpretationReference RangeFacilityLab - Other Lab Resultson 67-11-4627Cns - Other Lab Results [id number]#1.00OTSelect Medical Specialty Hospital - TrumbullXR CHEST 2Von 96-07-4825[address] [address] XRay Report Signed Patient: BRIAN QUEZADA MR#: [id number] : 1950 Acct:[id number] Age/Sex: 73 / M ADM Date: 05/30/24 Loc: LAB Attending Dr: RADAMES MART Ordering Physician: RADAMES MART Date of Service: 05/30/24 Procedure(s): XR chest 2V Accession Number(s): [id number] cc: RADAMES MART [address] [address] Patient Name: BRIAN QUEZADA MRN: [id number] date: 1950 Sex: M Assigned Patient Location: LAB Current Patient Location: LAB Accession/Order Number: [id number] Exam Date: 05/30/2024 14:20 Report Date: 06/02/2024 [...] M.D. Signed By: 06/02/249 DD/ 6 TD/TT: Potato Spotter:TBHRadiology, Radiologist, - 06/02/2024 [place] [address] XRay Report Signed Patient: BRIAN QUEZADA MR#: [id number] : 1950 Acct:[id number] Age/Sex: 73 / M ADM Date: 05/30/24 Loc: LAB Attending Dr: RADAMES MART Ordering Physician: RADAMES MART Date of Service: 05/30/24 Procedure(s): XR chest 2V Accession Number(s): [id number] cc: RADAMES MART [place] [address] Patient Name: BRIAN QUEZADA MRN: [id number] date: 1950 Sex: M Assigned Patient Location: LAB Current Patient Location: LAB Accession/Order Number: [id number] Exam Date: 05/30/2024 14:20 Report Date: 06/02/2024 [...] M.D. Signed By: 06/02/24438 DD/ 6 TD/TT: Potato Spotter: LYNN HealthcareRadiology Study observation (narrative)[facility] HealthcareXR CHEST 2V Ordered By: Radiologist Radiology on 91-18-5465[facility] Work Phone: ct ABDOMEN PELVIS W CONon 53-17[place]6368[place] [address] CT Scan Report Signed Patient: BRIAN QUEZADA MR#: [id number] : 1950 Acct:[id number] Age/Sex: 73 / M ADM Date: 05/30/24 Loc: LAB Attending Dr: RADAMES MART Ordering Physician: RADAMES MART Date of Service: 05/30/24 Procedure(s): CT abdomen pelvis w con Accession Number(s): [id number] cc: RADAMES MART [place] [address] Patient Name: BRIAN QUEZADA MRN: [id number] date: 1950 Sex: M Assigned Patient Location: LAB Current Patient Location: Accession/Order Number: [id number] Exam Date: 05/30/2024 14:25 Report Date: 06/01/2024 [...] Signed By: 06/01/24 1023 DD/ 1020 TD/TT: Potato Spotter:DEANAadiologgloria, Radiologist, - 06/01/2024 [place] [address] CT Scan Report Signed Patient: BRIAN QUEZADA MR#: [id number] : 1950 Acct:[id number] Age/Sex: 73 / M ADM Date: 05/30/24 Loc: LAB Attending Dr: RADAMES MART Ordering Physician: RADAMES MART Date of Service: 05/30/24 Procedure(s): CT abdomen pelvis w con Accession Number(s): [id number] cc: RADAMES MART [place] [address] Patient Name: BRIAN QUEZADA MRN: [id number] date: 1950 Sex: M Assigned Patient Location: LAB Current Patient Location: Accession/Order Number: [id number] Exam Date: 05/30/2024 14:25 Report Date: 06/01/2024 [...] Signed By: 06/01/24 1023 DD/ 1020 TD/TT: Potato Spotter: LYNN HealthcareRadiology Study observation (narrative)[facility] HealthcareCT ABDOMEN PELVIS W CONOrdered By: Radiologist Radiology on 80-00-4953DWPO [employer] Work Phone: nm BONE SC WH BODYon 29-63-9391RP BONE SC WH BODY EXAMINATION: NM BONE [...] Electronically authenticated by: BLAYNE CHOU Date: 2022-07-26 14:[address] [place], [place] [address]urgical Pathologyon 97-91-1471Qgakkzev Pathology(NOTE) -- Diagnosis -- A. PROSTATE, RIGHT [...] THE ADENOCARCINOMA IN THE INVOLVED BIOPSIES. FOR DRYING ROOM SUPERVISOR THE SLIDES OF SPECIMEN B WERE REVIEWED BY A SECOND PATHOLOGIST (FERNANDO). * THIS TEST WAS DEVELOPED AND ITS PERFORMANCE CHARACTERISTICS DETERMINED BY [facility] ANATOMIC PATHOLOGY. IT HAS NOT [...] PATHOLOGY CONSULTATION Patient Name: BRIAN QUEZADA Rec: [id number] Path Number: [id number] [employer] [facility] ANATOMIC PATHOLOGY [address] [place] [id number] NoCincinnati Shriners HospitalComment on above:Performed By: #### PPPVS #### [employer] [address] [place] [address] [id number] Dice Table Operator: Brady Wilkes MDEKG 12 LeadOrdered By: Ney Ferrara on 47-31-5544Fblwiw Lbyb44BDSAHR [employer] Work Phone: P Pznz49jzxffjaHWGRed [employer] Work Phone: P-R Yqrnnyfv026 [employer] Work Phone: Q-T Ffkaptjq466 [employer] Work Phone: QRS Fspgdyzk54 [employer] Work Phone: [phone] Calculation (Bazett)410 msBON [employer] Work Phone: R Mxxv85gvjmrxhNVKSports [employer] Work Phone: T Eviq61gnzoeffMAASports [employer] Work Phone: Ventricular Vzix98HUTJMQ [employer] Work Phone: BON [employer] Work Phone: [phone] 12 Leadon 29-74-7913Eomywa sinus rhythm Low voltage QRS Borderline ECG No previous ECGs availableUNIVERSITY OF PENNSYLVANIA [facility] Ney Mims MD - 04/24/2022 Normal sinus rhythm Low voltage QRS Borderline ECG No previous ECGs availableLEWISGALE HOSPITAL ALLEGH[facility] [employer] Work Phone: bUN & Creatinineon 35-22-3210Xgztwsyqzf [Mass/Vol]0.93 mg/dL0.70 - 1.20 mg/dLBON [facility]WO[facility] FanaticallGFR >60>60 mL/min [facility] CENTERGFR Non->60>60 mL/minBON LIMA CITY HOSPITALGFR/1.73 sq M.predicted MDRD (S/P/Bld) [Vol rate/Area][facility] MEDICAL CENTERComment on above:Average GFR for 60-69 years old: 85 mL/min/1.73sq m Chronic Kidney Disease: <60 mL/min/1.73sq m Kidney failure: <15 mL/min/1.73sq m eGFR calculated using average adult body mass. Additional eGFR calculator available at: http://www.[employer]/multiple_crcl_2012.htm Urea nitrogen (BldV) [Mass/Vol]10 mg/dL8 - 23 mg/dLBON LIMA CITY HOSPITALBUN + Creatinineon 04-23-2022(cont.)NormalNorwalk Memorial HospitalComment on above: Result Comment: Average GFR for 60-69 years old: 85 mL/min/1.73sq m Chronic Kidney Disease: <60 mL/min/1.73sq m Kidney failure: <15 mL/min/1.73sq m eGFR calculated using average adult body mass. Additional eGFR calculator available at: http://www.[employer]/multiple_crcl_2012.htmPerformed By: #### CBC, BUNCRT, LYTE #### [facility] [address] [place] [address] Dice Table Operator: JAYDE Subramanianreatinine [Mass/Vol]0.93 mg/dLNormal0.70-1.20 [facility] HospitalComment on above:Performed By: #### CBC, BUNCRT, LYTE #### [facility] [address] [facility] [place] [address] Dice Table Operator: Jean-Pierre Gallardo MDGFR, Amer>60Normal>60[facility] HospitalComun[facility] of [facility] health on above:Performed By: #### CBC, BUNCRT, LYTE #### [facility] [address] [facility] [place] [address] Dice Table Operator: Jean-Pierre Gallardo MDGFR,non Amer>60Normal>60[facility] HospitalComun[facility] on above:Performed By: #### JAZMINE, BUNCRT, LYTE #### [facility] [address] [place] [address] Dice Table Operator: Jean-Pierre Gallardo MDUrea nitrogen [Mass/Vol]10 mg/dLNormal8-23[facility] HospitalComun[facility] of [facility] on above:Performed By: #### CBC, BUNCRT, LYTE #### [facility] [address] [place] [address]. [place] [address] Dice Table Operator: Bob Subramanian 00-46-0769Cefwhrjazfa distribution width (RBC) [Ratio]11.9 %Qhahna50.8-14.4[facility]rini HospitalComment on above: Performed By: #### JAZMINE, BUNCRT, LYTE #### [facility] [address] [facility] [place] [address] Dice Table Operator: Jean-Pierre Gallardo MDHematocrit (Bld) [Volume fraction]45.0 %Normal 40.7-50.3[facility] HospitalComun[facility] on above:Performed By: #### CBC, BUNCRT, LYTE #### [facility] [address] [facility] [place] [address] Dice Table Operator: Jean-Pierre Gallardo MDHemoglobin (Bld) [Mass/Vol]14.1 g/dLNormal 13.0-17.0[facility] HospitalComun[facility] on above:Performed By: #### CBC, BUNCRT, LYTE #### [facility] [address] [place] [address]. [place] [address] Dice Table Operator: PAVAN SubramanianCH (RBC) [Entitic mass]30.5 ubTxokxp44.2-33.5 [facility] on above:Performed By: #### CBC, BUNCRT, LYTE #### [facility] [address] [place] [address]. [place] [address] Dice Table Operator: BHAVNA SubramanianC (RBC) [Mass/Vol]31.3 g/bTNhubed38.4-34.8 [facility] on above:Performed By: #### JAZMINE, BUNCRT, LYTE #### [facility] [address] [place] [address]. [place] [address] Dice Table Operator: PAVAN SubramanianCV (RBC) [Entitic vol]97.4 pUJwivvf60.6-102.9 [facility] on above:Performed By: #### CBC, BUNCRT, LYTE #### [facility] [address] [place] [address]. [place] [address] Dice Table Operator: KWESI Subramanian Automated0.0 per 100 WBCNormal0.0[facility] on above:Performed By: #### CBC, BUNCRT, LYTE #### [facility] [address] [place] [address]. [place] [address] Dice Table Operator: Aren Subramanianlet mean volume (Bld) [Entitic vol]9.9 fL Normal8.1-13.5[facility] HospitalComun[facility] of [facility] health on above:Performed By: #### CBC, BUNCRT, LYTE #### [facility] [address] [facility] [place] [address] Dice Table Operator: Srinivas Subramanian (Bld) [#/Vol]162 10*3/mTLyltra239-375 [facility] HospitalComment on above:Performed By: #### CBC, BUNCRT, LYTE #### [facility] [address] [place] [address]. [place] [address] Dice Table Operator: MANE Subramanian (Bld) [#/Vol]4.62 10*6/uLNormal4.21-5.77 [facility] HospitalComment on above:Performed By: #### JAZMINE, BUNCRT, LYTE #### [facility] [address] [place] [address]. [place] [address] Dice Table Operator: ANASTASIA Subramanian (Bld) [#/Vol]9.2 10*3/uLNormal3.5-11.3MSwedish Medical Center Cherry HillComment on above:Performed By: #### JAZMINE, BUNCRT, LYTE #### [facility] [address] [place] [address]. [place] [address] Dice Table Operator: Jean-Pierre Gallardo MDHematocrit (Bld) [Volume fraction]45.0 %40.7 - 50.3 %[facility] MEDICAL CENTERHemoglobin.gastrointestinal spec 1 Ql (Stl)14.1 g/dL13.0 - 17.0 g/dLBON TRIHEALTH BETHES[facility] NORTH HOSPITALH (RBC) [Entitic mass]30.5 pg25.2 - 33.5 pgBON TRIHEALTH BETHESDA NORTH HOSPITALHC (RBC) [Mass/Vol]31.3 g/dL28.4 - 34.8 g/dL [facility] HOSPITALV (RBC) [Entitic vol]97.4 fL82.6 - 102.9 fLBON LIMA CITY HOSPITALNRBC Automated0.00.0 per 100 WBCBON SECOURS MERCY HEALTHPlatelet distribution width (Bld) [Ratio]11.9 %11.8 - 14.4 %[facility] Platelet mean volume (Bld) [Entitic vol]9.9 fL8.1 - 13.5 fLBON BELLWOOD GENERAL HOSPITAL HEALTHPlatelets (Bld) [#/Vol]162 10*3/uLBON BELLWOOD GENERAL HOSPITAL HEALTHRBC (Bld) [#/Vol]4.62 10*6/uL4.21 - 5.77 m/uLBON LIMA CITY HOSPITALWBC (Bld) [#/Vol]9.2 10*3/uLBON [facility]LLWOOD GENERAL HOSPITAL HEALTHBON [facility] HEALTHElectrolyte Panelon 25-46-6549Qendb gap [Moles/Vol]6 mmol/LLow9 - 17 mmol/[facility] Chloride [Moles/Vol]101 mmol/L98 - 107 mmol/[facility]ITALCO2 [Moles/Vol]35 mmol/LHigh20 - 31 mmol/LBON [facility] HEALTHInterpretation and review of laboratory resultsAbnormalBON [facility] HEALTHPotassium [Moles/Vol]4.6 mmol/L3.7 - 5.3 mmol/LBON [facility] HEALTHSodium [Moles/Vol] 142 mmol/L135 - 144 mmol/LB[facility]OSPITALElectrolyteson 27-98-2420Hzmeb gap [Moles/Vol]6 mmol/LLow9-17MerProvidence Mount Carmel HospitalComment on above:Performed By: #### TONY LUCERO LYTE #### [facility] [address] [place] [address] Dice Table Operator: JAYDE Subramanianhloride [Moles/Vol]101 mmol/LWdwnae62-401XkiasNorwalk Memorial HospitalComuniversity of michigan health on above:Performed By: #### TONY LUCERO LYTE #### [facility] [address] [facility] [place] [address] Dice Table Operator: JAYDE SubramanianO2 [Moles/Vol]35 mmol/DUmbc09-53ObpkzNorwalk Memorial HospitalComment on above:Performed By: #### CBC, BUNCRT, LYTE #### [facility] [address] [place] [address] Dice Table Operator: STEPHANIE Subramanianotassium [Moles/Vol]4.6 mmol/LNormal3.7-5.3 Norwalk Memorial HospitalComment on above:Performed By: #### CBC, BUNCRT, LYTE #### [facility] [address] [place] [address] Dice Table Operator: Jean-Pierre Gallardo MDSodium [Moles/Vol]142 mmol/BVqrsob107-587ZsaukNorwalk Memorial HospitalComment on above:Performed By: #### CBC, BUNCRT, LYTE #### [facility] [address] [place] [address] Dice Table Operator: Jean-Pierre Gallardo MDQuorum Health Informationon 25-51-8277XXERIVERSIDE DOCTORS' HOSPITAL WILLIAMSBURGChronic pulmonary change without acute cardiopulmonary process. [facility] RIS CONSOLIDATEDEXAMINATION: TWO XRAY VIEWS [...] unremarkable. The extrathoracic soft tissues are unremarkable. [facility] Frank Armijo MD - 04/23/2022 EXAMINATION: [...] Chronic pulmonary change without acute cardiopulmonary process. [address] Phone: radiology Study observation (narrative)[address] Phone: No Panel InformationOrdered By: Frank Roque on 55-26-6222VZW [place] Phone: XR CHEST (2 VW)on 89-60-0932ZC CHEST (2 VW) EXAMINATION: TWO XRAY VIEWS [...] Signed by: Frank Roque MD 04/23/22 Final resultNormalMerProvidence Mount Carmel HospitalQ - PSA (FREE AND TOTAL)on 02-02-2022 PSA, % FREE13 % (calc)Low>25[facility] [place] [facility] SpecialistComment on above: Order Comment: [facility] Testing performed at: [facility], [employer] [facility], [address] [place] [address], [address] [place] [address], [phone], Data Storage Specialist: Fermín Aj MD [facility] Collection Date/Time: [id number] [facility] Results Received Date/Time: [id number] [facility] Reported Date/Time: [id number] Comment: PSA(ng/mL) Free PSA(%) Estimated(x) Probability of Cancer(as%) 0-2.5 (*) Approx. 1 2.6-4.0(1) 0-27(2) 24(3) 4.1-10(4) 0-10 56 11-15 28 16-20 20 21-25 16 >or =26 8 >10(+) N/A >50 References:(1)Kevin et al.:Urology 60: 469-474 (2002) (2)Kevin et al.:J.Urol 168: 922-925 (2001) Free PSA(%) Sensitivity(%) Specificity(%) < or = 25 85 19 < or = 30 93 9 (3)Kevin et al.:PAVAN 277: 6090-6184 (1996) (4)Catalona et al.:PAVAN 279: 4715-7684 (1997) (x)These estimates vary with age, ethnicity, [...] mind. PSA was performed using the Jett [place] Immunoassay method. Values obtained from different assay methods cannot be used interchangeably. PSA levels, regardless of value, should not be interpreted as absolute evidence of the presence or absence of disease.Performed By: #### [id number] #### [facility] Default [address] [place], [place] [address]FGM, FREE0.9 ng/mLNormalNortphoenix memorial hospitaln [facility] SpecialistComment on above:Order Comment: [facility] Testing performed at: [employer], [employer] [facility], [address] [place] [address], [address] [place] [address], [phone], Data Storage Specialist: Fermín Aj MD [facility] Collection Date/Time: [facility] Results Received Date/Time: [id number] [facility] Reported Date/Time: [id number] By: #### [id number] #### [facility] Default [address] [place], [place] [address]NZL, TOTAL7.0 ng/mLHigh< OR = 4.0Nortphoenix memorial hospitaln [facility] CenterLogistics Lead Comment on above:Order Comment: [facility] performed at: [employer], [employer] [facility], [address] [place] [address], [address] [place] [address], [phone], Data Storage Specialist: Fermín Aj MD [facility] Collection Date/Time: [facility] Results Received Date/Time: [facility] Reported Date/Time: [id number] By: #### [id number] #### [facility] Default [address] [place], [place] [address]Alwjqjpw Blood Count with Auto Diffon 25-06-5594Dztfqgzmz (Bld) [#/Vol]0.07 10*3/uLNormal0.00-0.20Medina HospitalComment on above:Performed By: #### CBCAD, CMP, LIPD #### [facility] [address] [place], [place] [id number]/100 WBC (Bld)1.0 %NormalMedina HospitalComment on above:Performed By: #### CBCAD, CMP, LIPD #### [facility] [address] [place], [place] [id number] (Bld) [#/Vol]0.23 10*3/uLNormal0.02-0.50Medina HospitalComment on above:Performed By: #### CBCAD, CMP, LIPD #### [facility] [address] [place], [place] [id number]/100 WBC (Bld)3.2 %[facility] SpecialistComment on above:Performed By: #### CBCAD, CMP, LIPD #### [facility] [address] [place], [place] [id number] distribution width (RBC) [Ratio]11.9 %Normal 11.0-15.0Medina HospitalComment on above:Performed By: #### CBCAD, CMP, LIPD #### [facility] [address] [place], [place] [id number] (Bld) [Volume fraction]43.2 %Iisvwk87.5-50.0 Medina HospitalComment on above:Performed By: #### CBCAD, CMP, LIPD #### [facility] [address] [place], [place] [id number] (Bld) [Mass/Vol]14.3 g/iGLgcoba90.0-17.1NortherSelect Medical Specialty Hospital - Cincinnati North SpecialistComment on above:Performed By: #### CBCAD, CMP, LIPD #### [facility] [address] [place], [place] [id number] (Bld) [#/Vol]2.0 10*3/uLNormal0.9-3.9NoGuernsey Memorial Hospital SpecialistComment on above:Performed By: #### CBCAD, CMP, LIPD #### [facility] [address] [place], [place] [id number]/100 WBC (Bld)28.0 %NormalNoGuernsey Memorial Hospital SpecialistComment on above:Performed By: #### CBCAD, CMP, LIPD #### [facility] [address] [place], [place] [id number] (RBC) [Entitic mass]31.0 rvEwhlfn56.0-33.0NoGuernsey Memorial Hospital SpecialistComment on above:Performed By: #### CBCAD, CMP, LIPD #### [facility] [address] [place], [place] [id number] (RBC) [Mass/Vol]33.1 g/uCYnjrnt34.0-36.0NoGuernsey Memorial Hospital SpecialistComment on above:Performed By: #### CBCAD, CMP, LIPD #### [facility] [address] [place], [place] [id number] (RBC) [Entitic vol]94 wUJdtcit18-688Blhhkrho [place] [facility] SpecialistComment on above:Performed By: #### CBCAD, CMP, LIPD #### [facility] [address] [place], [place] [id number] (Bld) [#/Vol]0.7 10*3/uLNormal0.2-0.9NoGuernsey Memorial Hospital SpecialistComment on above:Performed By: #### CBCAD, CMP, LIPD #### [facility] [address] [place], [place] [id number]/100 WBC (Bld)9.3 %NormalSelect Medical Specialty Hospital - [facility] [place] SpecialistComment on above:Performed By: #### CBCAD, CMP, LIPD #### [facility] [address] [place], [place] [id number] (Bld) [#/Vol]4.2 10*3/uLNormal1.5-7.8NortChildren's Hospital of Columbus SpecialistComment on above:Performed By: #### CBCAD, CMP, LIPD #### [facility] [address] [place], [place] [id number]/100 WBC (Bld)58.4 %NormalNoGuernsey Memorial Hospital SpecialistComment on above:Performed By: #### CBCAD, CMP, LIPD #### [facility] [address] [place], [place] [id number] mean volume (Bld) [Entitic vol]10.20 fLNormal 7.50-12.50NoGuernsey Memorial Hospital SpecialistComment on above:Performed By: #### CBCAD, CMP, LIPD #### [facility] [address] [place], [place] [id number] (Bld) [#/Vol]151 10*3/rWXoeypx206-464Oihmaoah [place] Medical SpecialistComment on above:Performed By: #### CBCAD, CMP, LIPD #### [facility] [address] [place], [place] [id number] (Bld) [#/Vol]4.61 10*6/uLNormal4.20-5.80NortChildren's Hospital of Columbus SpecialistComment on above:Performed By: #### CBCAD, CMP, LIPD #### [facility] [address] [place], [place] [id number]-VF06.6 hNJbwxbs49.0-50.0NoGuernsey Memorial Hospital Specialist Comment on above:Performed By: #### CBCAD, CMP, LIPD #### [facility] [address] [place], [place] [id number] (Bld) [#/Vol]7.2 10*3/uLNormal3.8-11.0NoGuernsey Memorial Hospital SpecialistComment on above:Performed By: #### CBCAD, CMP, LIPD #### [facility] [address] [place], [place] [id number] Metabolic Panelon 01-05-4005Eygxiea [Mass/Vol] 4.5 g/dLNormal3.6-5.1[facility] SpecialistComment on above:Performed By: #### CBCAD, CMP, LIPD #### [facility] [address] [place], [place] [id number]/Globulin [Mass ratio]2.0 {ratio}Normal1.0-2.5NoGuernsey Memorial Hospital SpecialistComment on above:Performed By: #### CBCAD, CMP, LIPD #### [facility] [address] [place], [place] [id number] [Catalytic activity/Vol]78 U/HSnaclf67-235Hkznyhzi [place] [facility] SpecialistComment on above:Performed By: #### CBCAD, CMP, LIPD #### [facility] [address] [place], [place] [id number] [Catalytic activity/Vol]17 U/LNormal9-46NoGuernsey Memorial Hospital SpecialistComment on above:Result Comment: 10/28/2021 Female reference range changed.Performed By: #### CBCAD, CMP, LIPD #### [facility] [address] [place], [place] [id number] gap [Moles/Vol]15 mmol/VHnmbch14-05Epvugzog [place] Medical SpecialistComment on above:Result Comment: Effective 12/03/2019 reference range changed.Performed By: #### CBCAD, CMP, LIPD #### [facility] [address] [place], [place] [id number] [Catalytic activity/Vol]20 U/HXrfhdp75-65Hmlmdbfr [place] [facility] SpecialistComment on above:Performed By: #### CBCAD, CMP, LIPD #### [facility] [address] [place], [place] [id number] [Mass/Vol]0.53 mg/dLNormal0.30-1.20[facility] [place] [facility] SpecialistComment on above:Performed By: #### CBCAD, CMP, LIPD #### [facility] [address] [place], [place] [id number]/CREA11 RatioNormal6-22[place] [employer] Lead Comment on above:Performed By: #### CBCAD, CMP, LIPD #### [facility] [address] [place], [place] [id number] [Mass/Vol]10.0 mg/dLNormal8.6-10.2[facility] [place] [facility] SpecialistComment on above:Performed By: #### CBCAD, CMP, LIPD #### [facility] [address] [place], [place] [id number] [Moles/Vol]103 mmol/DHulbea52-940Aaoystnt [place] Medical SpecialistComment on above:Performed By: #### CBCAD, CMP, LIPD #### [facility] [address] [place], [place] [id number] [Moles/Vol]30 mmol/WLyfyua73-87Mexzjsdz [place] Medical SpecialistComment on above:Performed By: #### CBCAD, CMP, LIPD #### [facility] [address] [place], [place] [id number] [Mass/Vol]1.1 mg/dLNormal0.7-1.4[facility] [place] [facility] SpecialistComment on above:Performed By: #### CBCAD, CMP, LIPD #### [facility] [address] [place], [place] [id number] mL/min/1.33v6Evwbwg>60[place] [facility] SpecialistComment on above:Performed By: #### CBCAD, CMP, LIPD #### [facility] [address] [place], [place] [id number] mL/min/1.14b7Oqccof>60[place] [facility] SpecialistComment on above:Performed By: #### CBCAD, CMP, LIPD #### [facility] [address] [place], [place] [id number] (S) [Mass/Vol]2.3 g/dLNormal1.9-3.7NoGuernsey Memorial Hospital SpecialistComment on above:Performed By: #### RAEGAN, CMP, LIPD #### [facility] [address] [place], [place] [id number] [Mass/Vol]96 mg/vDAffyga36-91Cftzjpoa [place] [facility] SpecialistComment on above:Result Comment: For FASTING Glucose --- ADA reference ranges: Normal 65-99 mg/dl Prediabetes 100-125 Diabetes >/= 126Performed By: #### RAEGAN, CMP, LIPD #### [facility] [address] [place], [place] [id number] [Moles/Vol]4.3 mmol/LNormal3.5-5.5NoGuernsey Memorial Hospital SpecialistComment on above:Performed By: #### RAEGAN, CMP, LIPD #### [facility] [address] [place], [place] [id number] [Mass/Vol]6.8 g/dLNormal6.1-8.1NortherSelect Medical Specialty Hospital - [facility] SpecialistComment on above:Performed By: #### RAEGAN, CMP, LIPD #### [facility] [address] [place], [place] [id number] [Moles/Vol]143 mmol/QQhacwy032-432Rubkuepq [place] [facility] SpecialistComment on above:Performed By: #### RAEGAN, CMP, LIPD #### [facility] [address] [place], [place] [id number] nitrogen [Mass/Vol]12 mg/dLNormal7-25NortChildren's Hospital of Columbus SpecialistComment on above:Performed By: #### RAEGAN, CMP, LIPD #### [facility] [address] [place], [place] [id number] Panelon 32-61-6732Bbklssefhov [Mass/Vol]162 mg/dLNormal 125-200NortChildren's Hospital of Columbus SpecialistComment on above:Result Comment: Low risk < 200mg/dL Borderline risk 201-239 mg/dl High risk > or equal to 240Performed By: #### CBCAD, CMP, LIPD #### [facility] [address] [place], [place] [id number] in HDL [Mass/Vol]59 mg/dLNormal>40NoGuernsey Memorial Hospital SpecialistComment on above:Result Comment: High Cardiovascular Risk HDL <40 mg/dL Low Cardiovascular Risk HDL > or equal to 60 mg/dlPerformed By: #### CBCAD, CMP, LIPD #### [facility] [address] [place], [place] [id number] in LDL [Mass/Vol]79 mg/dLNormalNoGuernsey Memorial Hospital SpecialistComment on above:Result Comment: LDL ATP III CLASSIFICATION LDL less than 100 mg/dl Optimal LDL 100-129 mg/dl Near or above optimal LDL 130-159 Borderline high LDL 160-189 High LDL greater than 189 mg/dl Very HighPerformed By: #### CBCAD, CMP, LIPD #### [facility] [address] [place], [place] [id number] in VLDL [Mass/Vol]24 mg/dLNormalNoGuernsey Memorial Hospital SpecialistComment on above:Performed By: #### CBCAD, CMP, LIPD #### [facility] [address] [place], [place] [id number].total/Cholesterol in HDL [Mass ratio]3 {ratio} NormalNoGuernsey Memorial Hospital SpecialistComment on above:Performed By: #### CBCAD, CMP, LIPD #### [facility] [address] [place], [place] [id number] [Mass/Vol]121 mg/qZAldymu96-221Yvpsacvg [place] [facility] SpecialistComment on above:Result Comment: TRIG ATPIII CLASSIFICATIONS TRIG less than 150 mg/dl Normal TRIG 150-199 mg/dl Borderline High TRIG 200-500 mg/dl High TRIG greather than 500 mg/dl Very HighPerformed By: #### CBCAD, CMP, LIPD #### [facility] [address] [place], [place] [id number] SCREEN (MEDICARE)on 91-84-0489IVYI1.940 ng/mLHigh<4.000 [facility] Medical SpecialistComment on above:Result Comment: PSA Test Method: ECLIA/Gilberto e 601Performed By: #### PSA #### [facility] [address] [place], [place] [id number] Vital Signs Date TimeVital SignValuePerforming EffquizmbHqxhyvoo28-89-3399 11:19-0500Body ezmoid566.8 cmKaren Hemmer PA Work Phone: [facility] SystemDlddmmcffu06-15-3655 11:19-0500Body mass index (BMI) [Ratio]26.4 kg/d0Hitrm Hemmer PA Work Phone: [facility] SystemJewkgznxcr42-27-8373 11:19-0500Body ducnji52.46 kgKaren Hemmer PA Work Phone: [facility] SystemZpzkqabagc18-25-6112 11:19-0500Diastolic blood exfwwihp58 mm[Hg]Irina Hemmer PA Work Phone: [facility] SystemMnryrixwtg61-81-7115 11:19-0500Heart rate84 /min Irina Hemmer PA Work Phone: [facility] SystemBrqbfqfnhm03-91-2558 11:19-0500Respiratory rate16 /minKaren Hemmer PA Work Phone: [facility] SystemUqplaggovu28-18-8868 11:19-0289YoX7% (BldA) [Mass fraction]93 %Irina Hemmer PA Work Phone: [facility] SystemAxggupiuol71-88-3926 11:19-0500Systolic blood phjyszhi081 mm[Hg]Irina Hemmer PA Work Phone: [facility] SystemTiurhqcxsw41-55-9294 10:30-0400Body olxgyf303.8 cmCameron LightArrowgloria Other [place] [facility] Other 09-27-2022 10:30-0400Body mass index (BMI) [Ratio] 22.67 kg/h1Erafaoj Distew [facility] Other 09-27-2022 10:30-0400Body .67 kgOrlando Valencia Other [place] [facility] Other 09-27-2022 10:30-0400Diastolic blood ifxgqidh67 mm[Hg] Orlando Valencia [facility] Other 09-27-2022 10:30-0400Systolic blood ecouylvz430 mm[Hg] Orlando Valencia Other [facility] Other 06-06-2022 12:15-0400Body yzxefolfrps34.2 [degF] Josue Castro MD Work Phone: [facility] [employer]06-06-2022 12:15-0400Diastolic blood scroizwd42 mm[Hg]Josue Castro MD Work Phone: [facility] [employer]06-06-2022 12:15-0400Heart rate77 /minJosue Castro MD Work Phone: [facility] [employer]06-06-2022 12:15-0400 Respiratory rate15 /minJosue Castro MD Work Phone: [facility] [employer]06-06-2022 12:15-9986ZdK5% (BldA) [Mass fraction]98 %Josue Castro MD Work Phone: [facility] [employer]06-06-2022 12:15-0400Systolic blood bzcizyyl945 mm[Hg]Josue Castro MD Work Phone: [facility] [employer]06-06-2022 10:06-0400Body dmmuzr486.8 cmJosue Castro MD Work Phone: [facility] [employer]06-06-2022 10:06-0400Body mass index (BMI) [Ratio]22.96 kg/j4BautehvJosue Castro MD Work Phone: [facility]06-06-2022 10:06-0400Body .58 kgJosue Castro MD Work Phone: [facility]05-27-2022 08:05-9776SoP5% (BldA) [Mass fraction]95 %Sta [facility]05-27-2022 08:02-0400Body evbpfr882.8 cmSta [facility]05-27-2022 08:02-0400Body mass index (BMI) [Ratio]22.96 kg/m2Sta [address] [place], [place] [address]205-27-2022 08:02-0400Body zpjpkbvoohx23.7 [degF]Sta [facility]05-27-2022 08:02-0400Body tsarkk94.[address] [place], [place] 1413205-27-2022 08:02-0400Diastolic blood dsdpesky52 mm[Hg]Sta [address] [place], [place] 1413205-27-2022 08:02-0400Heart ntkd072 /minSta [address] [place], [place] 1413205-27-2022 08:02-0400Respiratory rate24 /min Sta [address] [place], [place] 1413205-27-2022 08:02-0400Systolic blood dkbgyggh974 mm[Hg]Sta [address] [place] [address] Encounters Encounter DateEncounter TypeCare ProviderFacilityStart: 09-30-2025 End: 07-34-7677Oiejovmarianne OBRIEN Work Phone: [facility] [place] [facility] MedinceStart: 09-30-2025 End: 68-00-6068Stnikjmarianne OBRIEN Work Phone: NOEK [place] [facility] MedinceStart: 09-30-2025 End: 49-34-3047Bjevrggsuefh care manage srvc 14 day dischargeIrina OBRIEN Work Phone: [facility] on above:Paroxysmal atrial fibrillation (HCC) (Primary Dx); Atherosclerosis of [place] coronary artery of [place] heart without angina pectoris; Centrilobular emphysema (HCC); Acute respiratory failure with hypoxia (HCC); Chronic obstructive pulmonary disease, unspecified COPD type (HCC); Oxygen dependent; Anxiety; Gastroesophageal reflux disease without esophagitis; Chronic respiratory failure with hypoxia (HCC); Major depressive disorder, recurrent, moderate (HCC); Chronic idiopathic constipationStart: 09-30-2025 End: 25-73-1213kidhmrixziCUNDL M HEMMERNot AvailableStart: 09-06-2025 End: 43-39-6991Nkijotifi Result EncounterGeneric External Data ProviderNOMS External Department UnsolicitedStart: 09-06-2025 End: 24-57-4125Trahiyeoo Result EncounterGeneric External Data ProviderNOMS External Department UnsolicitedStart: 08-01-2025 End: 01-43-8069bjbdasivclXyyjhqd J BuckFacility: SURG CLINICStart: 07-23-2025 ambulatoryJosue CastroFacility: SURG CLINICStart: 07-16-2025 End: 01-24-7773wnorntjpceXFGAMV BERRYFacility: SURG CLINICStart: 05-13-2025 End: 09-67-7519Huknyedyl encounterDacedric Mart MD Work Phone: [facility] CI FMStart: 02-07-2025 End: 15-31-5747Euzpzrlin OBRIEN Work Phone: [facility] CI FMStart: 02-07-2025 End: 05-11-0872Icoxrb Rosangela OBRIEN Work Phone: [facility] CI FMStart: 02-07-2025 End: 79-31-7088stiadrsamvHAAWFJono Shay AvailableStart: 06-02-2024 End: 82-45-9695Drbwuftag Result EncounterRadames Mart MD Work Phone: [facility] External Department UnsolicitedStart: 06-02-2024 End: 27-80-3283Mwkvasrjx Result EncounterRadames Mart MD Work Phone: noms External Department UnsolicitedStart: 06-01-2024 End: 19-50-4531Nvpnswqpc Result EncounterRadames Mart MD Work Phone: noms External Department UnsolicitedStart: 06-01-2024 End: 73-87-5264Ihxyzonpe Result EncounterRadames Mart MD Work Phone: noms External Department UnsolicitedStart: 04-04-2023 End: 91-55-9653tnhmylvdmvII DOCTOR MISCFacility:H4Vylop: 02-05-2023 End: 69-63-3635gaqtxrvjnzBN DOCTOR MISCFacility:H0Daobo: 08-24-2022 End: 84-35-9317tbabwaenreLjoermc Ditty Other [facility] Other Start: 18-52-5442IGRW visit new patientCamjoseline Valencia [facility] GastroenterologyStart: 08-04-2022 End: 78-79-4170elkfhdgprgGZ DOCTOR MISCFacility:I3Jpadr: 07-26-2022 End: 41-43-3687muasdkznfvQE RADAMES MARTFacility:S7Eoiah: 05-03-2022 End: 04-09-7353yepxuqpibgCTJIBTIBerger Hospital HospitalStart: 05-03-2022 End: 44-64-7993Kkfufwfcgw hospital visit by physicianJosue Castro MD Work Phone: stAZ ORComment on above:PSA elevationStart: 04-23-2022 End: 94-67-5426jybyxvlejgZMJLBAD [facility] HospitalStart: 04-23-2022 End: 16-21-3651ibcpsntyysTOJCIS B [facility] HospitalStart: 04-23-2022 End: 66-27-4573Tdcdhrslfp hospital visit by physicianSta [facility] RadiologyComment on above:ArrivedStart: 04-23-2022 End: 22-16-0927Trzqqgfjuv hospital visit by physicianSta Pat 1STAZ PRE-ADMIT TESTING Procedures DateProcedureProcedure DetailPerforming ClinicianStart: 12-14-9086SSOSJ CULTURE 2Generic External Data ProviderStart: 52-89-5885ZUMMB CULTURE 1Generic External Data ProviderStart: 40-74-1867TO CHEST 2Gaye Mart MD Work Phone: Start: 58-85-2202TM ABDOMEN PELVIS W Virgilio Mart MD Work Phone: Start: 15-27-9217CJG screeningDR DOCTOR MISCComment on above:Performed By: #### PSAD #### [facility] [address] [place] [address] Dr. Mireya Joyner: 72-47-6814XMH screeningDR DOCTOR MISCComment on above: Performed By: #### PSAD #### [facility] [address] [place] [address] Dr. Mireya Joyner: 25-85-6070EYH screeningDR DOCTOR MISCComment on above: Performed By: #### PSAD #### [facility] [address] [place] [address] Dr. Mireya Joyner: 28-36-2072Reqxptyiak exam chest 2 viewsNdysabel Rider MD Work Phone: Start: 91-24-0074Tbebtsfmkbv panelNdysabel Rider MD Work Phone: Start: 47-96-8906Rhd routine ecg w/least 12 lds w/i&r Ndal Ashu Rider MD Work Phone: Start: 59-05-8732XzwpdmrjhukOzzbj Hemmer PA Work Phone: Plan of Treatment DateCare ActivityDetailAuthorStart: 23-56-7851Ufhdyzxao for malignant neoplasm of colonNOMS HealthcareStart: 11-25-2025 End: 93-16-8309Lbkyyua encounter afnxebplj58/29/2025 2:00 PM EST Office Visit [facility] [place] [facility] [address] [place] [phone] Radames Mart MD [address] [place] [address] NOMVince Burgess MedinceStart: 09-30-2025 End: 47-03-5317Rxdtyvr encounter /03/2025 11:00 AM EST [facility] [place] [facility] [address] [place] [address] Irina Bowman PA [address] [place] [address] ArrivedNOMS [place] [facility]ess MedinceComment on above:ArrivedStart: 60-95-9238DLRTN-19 Vaccine ( season)COVID-19 Vaccine ( season)NOM[facility] HealthcareStart: 35-03-0797Iqroamlcb vaccinationInfluenza Vaccine (#1)[facility] HealthcareStart: 02-07-2025 End: 69-17-4245Ltvoleo encounter zqvodugqu37/13/2025 1:00 PM EDT Office Visit [facility] [address] [facility] [address] [place] [address] Irina Bowman, PA [address] [facility] [address] [place] [address] ArrivedNOMS CI FMComment on above:ArrivedStart: 62-74-4171Mmlarvosg vaccinationInfluenza Vaccine (#1)[facility] HealthcareStart: 74-29-6249Uvnys panelLipidsBON LIMA CITY HOSPITALStart: 57-11-0640Pcjosqfkw vaccinationFlu vaccine (Season Ended)[facility]: 05-03-2022 End: 47-78-5407Hlmuttzuo to same day surgery xphstq9905/03/2022 Surgery IP Unit Josue Castro MD [address] [facility] [address] [place], [place] [address] FUSION PROSTATE BIOPSY WITH ULTRASOUND MRI WAS AT [facility] ON [place] ORComment on above:FUSION PROSTATE BIOPSY WITH ULTRASOUND MRI WAS AT [facility] ON art: 05-03-2022 End: 89-05-6438Guepzsfurx ezuxayvxrckp90/06/2022 Anesthesia Event IP Unit Fish Rider MD [address] [place] [address] STABryant ORStart: 05-93-8257Dqetkbsbha hospital visit by nibfzkqcs75/06/2022 Hospital Encounter IP Unit Josue Castro MD [address] [facility] [address] [place] [address] JESSICA ORStart: 05-03-2022 End: 41-62-9651Eagcgg prostate incisional any [facility] Hospitaltart: 56-00-3985Sjnbcqwaqsaq 65+ years Vaccine (2 - PCV)Pneumococcal 65+ years Vaccine (2 - PCV)[facility]ENTERStart: 90-87-3643Gdesbsooe aortic aneurysm screeningAAA screenInova Fairfax Hospitalart: 2002 Shingles vaccine (1 of 2)Shingles vaccine (1 of 2)[facility]ENTERStart: 25-38-3542Gyairwdyf for malignant neoplasm of colonSPOTSYLVANIA REGIONAL [facility] Start: 87-54-1842Zmbtyiux specific antigen measurementProstate Specific Antigen (PSA) Screening or MonitoringInova Fairfax Hospitalart: 03-26-1992 DTaP/Tdap/Td Vaccines (2 - Td or Tdap)DTaP/Tdap/Td Vaccines (2 - Td or Tdap)[facility] SystemStart: 64-43-3947EZwC/Tdap/Td vaccine (1 - Tdap)DTaP/Tdap/Td vaccine (1 - Tdap)[facility]ENTERStart: 32-24-7697Rciidwiah C screening Hepatitis C screenHospital Corporation of America: 36-23-6986Vmpfpiewok Screen Depression ScreenInova Fairfax Hospitalart: 28-47-7572Mwcxce Wellness Visit (AWV)Annual Wellness Visit (AWV)[facility]ENTERCorpUStart: 1950 Screening for malignant neoplasm of colonNOMS HealthcareBLOOD CULTURE 1BLOOD CULTURE 1 Lab Routine 09/06/2025 10:14 PM EDTNOMS HealthcareBLOOD CULTURE 2BLOOD CULTURE 2 Lab Routine 09/06/2025 11:10 PM EDTNOMS HealthcareContinuous pulse oximetryPulse oximetry, continuous Respiratory Care Routine Every 4hr until discontinued starting 05/04/2022[facility]orpU Work Phone: Comment on above:Every 4hr until discontinued starting 05/04/2022urgical PathologySurgical Pathology Lab Routine PSA elevation Release Upon Ordering for 1 Occurrences starting 05/03/2022[facility] GREENSBOROSkytree Digital Phone: Comment on above:Release Upon Ordering for 1 Occurrences starting 05/03/2022 End: 53-51-7353GANEKGTR PATHOLOGY REPORTSURGICAL PATHOLOGY REPORT Lab Routine Once for 1 Occurrences starting 05/03/2022 until 05/03/2022[facility]OC[facility]U Work Phone: comment on above:Once for 1 Occurrences starting 05/03/2022 until 05/03/2022 Immunizations Immunization DateImmunizationNotesCare QsqcbmfoSzglrwwi70-44-3255Ajqqsobf trivalent influenza vaccine, adjuvanted, preservative freeIrina Bowman PA Work Phone: noParkland Health CenterUhqznxqgkk44-24-7599Pykhfblia, High-dose Seasonal, Quadrivalent, Preservative FreeIrina Bowman PA Work Phone: NOParkland Health CenterWntxuauens76-86-8571Gfqatgrpglvd Conjugate PCV 20 Irina Hemmer PA Work Phone: noParkland Health CenterHkasjpnhbn46-88-3221iucylxsvd virus vaccine, unspecified formulationYimien Hemmer PA Work Phone: NOParkland Health CenterZoohgutwyu83-01-5506Ybynpfftn, Seasonal, Quadrivalent, AdjuvantedYimien Hemmer PA Work Phone: NOParkland Health CenterLmurbujwtr62-74-0811Uphjxpaok, Seasonal, Quadrivalent, AdjuvantedKaren Hemmer PA Work Phone: [facility] SystemVegsymwaom84-67-9946PNZJN-66, Pfizer Purple top, DILUTE for use, 12+ yrs, 30mcg/0.3mL doseSta [facility] Work Phone: [phone]-59, Pfizer Purple top, DILUTE for use, 12+ yrs, 30mcg/0.3mL doseSta [facility] Work Phone: [phone]-75, Pfizer Purple top, DILUTE for use, 12+ yrs, 30mcg/0.3mL doseSta [facility] Work Phone: [phone]q, high dose seasonal, preservative-freeKaren Hemmer PA Work Phone: [facility] SystemPoejdeimkc89-78-5067Qtxwghdnn, High-dose Seasonal, Quadrivalent, Preservative FreeKaren Hemmer PA Work Phone: [facility] SystemMkjreoqdrx19-22-4944kposub vaccine recombinant Irina Hemmer PA Work Phone: [facility] SystemUiosqteauy26-70-8219cfnwoqgpddrf polysaccharide vaccine, 23 valentKaren Hemmer PA Work Phone: [facility] SystemNutfvcgotv82-87-0197bliqeq vaccine recombinant Irina Hemmer PA Work Phone: [facility] SystemPexjqwbzrn70-89-6019meuktodzx, high dose seasonal, preservative-freeKaren Hemmer PA Work Phone: [facility] SystemLlnlkivcvw23-66-4305Yvpzapahy, High-dose Seasonal, Quadrivalent, Preservative FreeKaren Hemmer PA Work Phone: [facility] SystemIgsuqpplhn81-54-0311nifhgcaamfdn polysaccharide vaccine, 23 valentKaren Hemmer PA Work Phone: [facility] SystemPqvtzpvslt78-81-0231ncwgxkipx, high dose seasonal, preservative-freeKaren Hemmer PA Work Phone: [facility] SystemNnunfqygwd55-65-4961fxwgawdgs, injectable, quadrivalent, contains preservativeKaren Hemmer PA Work Phone: [facility] SystemHwubswojkl35-50-5069rzckpagzu, injectable, quadrivalent, preservative freeKaren Hemmer PA Work Phone: Anch[facility] SystemsParkland Health CenterJrzblyfcdu06-27-2034mgcmpsdps virus vaccine, unspecified formulationKaren Hemmer PA Work Phone: [facility] SystemsParkland Health CenterSgkoatufdk09-76-5846yoznwghdn virus vaccine, unspecified formulationKaren Hemmer PA Work Phone: [facility] SystemHylhmwamrv00-96-4411jwdvzjsbn virus vaccine, unspecified formulationKaren Hemmer PA Work Phone: [facility]ch[facility] SystemsParkland Health CenterVkjmpvvuag09-87-4490didmhmjwqpfu polysaccharide vaccine, 23 valentKaren Hemmer PA Work Phone: [facility]ch[facility] SystemsParkland Health CenterBeerbtpjxm94-45-9182hdchjpb toxoid, reduced diphtheria toxoid, and acellular pertussis vaccine, adsorbedKaren Hemmer PA Work Phone: [facility] Payers DatePayer CategoryPayerPolicy [id number] Health InsuranceAARP [id number] 2017MedicareMEDICARE [id number] [id number] Health Insurance [id number] [id number]42[id number] 2.16.840.1.820584.3.57[id number] 2.16.840.1.923714.3.57[id number] 2.16840.1.898247.3.57[id number] 2.16.840.1.695804.3.57[id number] 2.16.840.1.725029.3.57[id number] 2.16.840.1.403382.3.57[id number] 2.16.840.1.639484.3.57[id number] 2.16.840.1.040071.3.57[id number] 2.16.840.1.853159.3.57[id number] 2.16.840.1.725228.3.57[id number] 2.16840.1.673552.3.57[id number] 2.16.840.1.897706.3.579.2.1259 Social History DateTypeDetailFacilityStart: 04-23-2022 End: 44-61-2658Mopebmt smoking status NHISEx-smokerSuite101 Phone: End: 93-63-6534Iamjbco of tobacco useCurrent smokerBANNER GOLDFIELD MEDICAL CENTER Ridango Phone: start: 04-23-2022 End: 32-29-2650Bhjnkeo use and exposureSmokeless tobacco non-userSuite101 Phone: start: 04-23-2022 End: 70-35-3749Ihjsujk intakeCurrent drinker of alcohol (finding)[facility] [employer] Phone: start: 04-23-2022 End: 81-56-0405Rlwgpqj intakeBANNER GOLDFIELD MEDICAL CENTER Rid[employer] Phone: start: 52-59-8013Mbm Assigned At BirthNot on fileSuite101 Phone: start: 04-23-2022 End: 67-33-1783Mhacznqq to SARS-CoV-2 (event)Not sureSuite101 Phone: start: 05-23-2024 End: 77-90-9496Cgt Assigned At [facility] Other History of tobacco useCigarette SmokerNONC Healthcare Start: 78-42-0726Ykxytph Commentcaffeine 1-2 cups per daySANPETE VALLEY HOSPITAL HealthcareStart: 81-61-6686GnzTcqlMOOE Healthcare Functional Status ZkqzNxyulaakphWjlqleQjojadya86-93-7968Ithwoob Health Questionnaire 2 item (PHQ- 2) [Reported][facility] Health SystemPlhpigxzrb83-79-3065Ueuocwe Health Questionnaire 2 item (PHQ- 2) [Reported][facility] Clinical Notes 04-23-2022 to 09-30-2025 Note Date & MbwfXkeaMnscvvrg84-62-5034 History of Present illness Narrative* MICAH Taylor - 09/30/2025 11:00 AM EST Images from the original note were not included. Subjective Patient ID: Brian Quezada is a 75 y.o. male who presents for TB and fci follow up. Flowsheet Row Patient Outreach from 09/27/2025 in [facility] with Michela Palmer LPN Hospital Information ED, Hospital or Care Home Facility Discharge? Care Home Facility Patient has been contacted within two business days of discharge Yes Have two attempts been made to contact the patient within two business days of being discharged? Yes Discharge Date 09/25/25 Discharged To: Home Setting Care Home Facilities [facility] Emergency Engagement Admission Date 09/17/25 Medications Discharge medications reviewed and reconciled from hospital? No Prescription Comments Xenia states that she is looking at both the med[facility] list and from the [place] I advised her to bring in the med list [facility] and [place] to his appt on tuesday Is the [...] too short of a program, was at [facility] [place]. Has completed the Prednisone. States cannot afford to continue the Eliquis. Wants to go back to the Plavix. States it worked wellfor him for years and he would like to just continue with the Plavix. Did have one BM the whole time he was in [facility]. Only one while at [facility]. States has had two BM's since being home. Did get a bedsore while at [facility], using Silvex Wound Gel. Per , it [...] 1 kit Daily 1 kit 0 [DISCONTINUED] Ksdhkzv-Mbeagayfmdy-Sufpnrcxcy (Breztri Aerosphere) 160-9-4.8 MCG/ACT aerosol Inhale2 puffs [...] four times a day currently. Atherosclerosis of [place] coronary artery of [place] heart without angina pectoris Continue nitroglycerin as needed for acute chest pain. Follow up with Cardiology as scheduled. Centrilobular emphysema (HCC) Continue Duo-nebs as needed. Supplemental oxygen. Acute respiratory failure with hypoxia (HCC) Symptoms are improving since being hospitalized. Continues with marked limitations. Chronic obstructive pulmonary disease, unspecified COPD type (HCC) - Ssowitu-Heaonwdgvqo-Mawsmmkqvt (Breztri Aerosphere) 160-9-4.8 MCG/ACT aerosol; Inhale 2 [...] stay as follows: Patient was seen at [facility] ER on 09/07/2025. Was admitted for paroxysmal [...] Dr. Mart). documented in this encounterSaint John's Health SystemLhkhnymjid87-93-8437 Note From: Drea Chopra (Urology Clinical [facility] ([facility])) Sent: 07/31/2025 14:24:29 EDT Subject: General Message Caller Name: EVON BRIAN Mendez; Caller Number: H , M Pt called stated had not received medication Orgovyx sent to [facility]. Spoke with Pharmacist Arlette, who stated she was waiting for insurance coverage ID # and pt should be receiving medication soon by delivery. Pt called and notified. [facility] LimaQofitajt12-96-7463 Note From: Drea Chopra Sent: 07/17/2025 08:14:01 EDT Subject: General Message Caller Name: KYLER QUEZADANY Vanessa; Caller Number: H , M Refill request Orgovyx (Relugolix) 120mg tablet, 1 tablet orally once a day, #30, 11 refills. Sent to [facility] ([facility]). Needs to be seen in office in 3-4 months. Pt next appointment must kept for more refills per Dr. Castro.[facility] LimaFsmakxee62-65-4726 Telephone encounter Note* Telephone Encounter - Lolita Mccoy - 05/29/2025 1:52 PM EDT Lvm 3rd attempt to contact no contact letter sent [facility] SystemRifurqtins97-12-3917 Miscellaneous Notes* Telephone Encounter - Lolita Infantejohn [...] schedule appt documented in this encounterSaint John's Health SystemJihfxaphez71-08-4344 Telephone encounter Note* Telephone Encounter - Lolita Allisonleif - 05/20/2025 9:28 AM EDT Patient stated they will call back and schedule within the next couple of days [facility] SystemApsnpeldae34-78-7815 Telephone encounter Note* Telephone Encounter - Lolita Infantejohn - 05/13/2025 3:38 PM EDT Paitent is overdue for mawv - lvm trying to schedule appt [facility] SystemWkinqlaqzt24-33-9018 Evaluation note* Encounter Date Diagnosis Assessment Notes Treatment Notes Treatment Clinical Notes Jul, Abdominal distension (ICD-10 - R 14.0) Jul,onstipation (ICD-10 - K59.00)OBTAIN COLONOSCOPY FROM [facility] MAY USE LINZESS NEEDED F/U PRN [employer] Other 06-06-2022 Hospital Discharge instructions* Instructions* Josue [...] Josue Castro MD documented in this encounterBON BANNING GENERAL HOSPITALTomorrowish Work Phone: 1(429) 438-723005-27-2022 History of Present illness Narrative* Erin Mclaughlin, CISTERN ROOM WORKING SUPERVISOR - STRIP CUTTER - 04/23/2022 8:00 AM EDT PAT Progress Note Pt Name: Brian Quezada Birthdate: 1950 Date of evaluation: 04/23/2022 [x] Called to PAT. I spoke to the patient, Brian Quezada, a 71 y.o. male, who is scheduled for an upcoming FUSION PROSTATE BIOPSY WITH ULTRASOUND MRI WAS AT [facility] ON 03/12 by Josue Castro MD [...] ms QTc Calculation (Bazett) 410 ms P [place] 88 degrees R [place] 42 degrees T [place] 81 degrees CBC Collection Time: 04/23/22 9:11 [...] at 1:55 PM documented in this encounterBANNER GOLDFIELD [facility]ICAL CENTER [employer] Phone: evaluation note* Diagnosis PSA elevation Elevated prostate specific antigen (PSA) documented in this encounter [facility] [employer] Phone: evalnzihwa note* Diagnosis Paroxysmal atrial fibrillation (HCC)- Primary Atrial fibrillation Atherosclerosis of [place] coronary artery of [place] heart without angina pectoris Centrilobular emphysema (HCC) [...] HistoryherniaSurgical Historycardiac stentSurgical Historywisdom teethHospitalization Historysee above [employer] Other Reason for visit Narrative* Auth/CertSpecialty Diagnoses / ProceduresReferred By ContactReferred To Contact Diagnoses Elevated PSA DX ELEVATED PSA Procedures MI BIOPSY OF PROSTATE,INCISIONAL FUSION PROSTATE BIOPSY WITH ULTRASOUND MRI WAS AT [facility] ON 03/12 Josue Castro MD [address] [place] [address] [facility] [employer] [address] [place] [address] Referral IDStatusReasonStart DateExpiration DateVisits RequestedVisits [id number] [employer] Work Phone: Summary Purpose Family History No [...] section and content) DATE CREATED AUTHOR 02/05/2022 [facility] Lead DATE CREATED AUTHOR AUTHOR'S ORGANIZ ATION 05/07/2022 [facility] DATE CREATED AUTHOR AUTHOR'S ORGANIZ ATION 04/08/2023 [facility] DATE CREATED AUTHOR AUTHOR'S ORGANIZ ATION 08/02/2025 [facility] DATE CREATED AUTHOR AUTHOR'S ORGANIZ ATION 10/01/2025 [facility] EPIC Care Teams (unrecognized sec tion and content) Team MemberRelationshipSpecialtyStart DateEnd Date Radames Mart MD [address] [facility] [address] [place] [address] PCP - GeneralInternal Medicine04/23/22Team MemberRelationshipSpecialtyStart Date End Date Radames Mart MD [address] [facility] [address] [place] [address] PCP - GeneralInternal Medicine04/23/22Team MemberRelationshipSpecialtyStart Date End Date Radames Mart MD [address] [place] [address] PCP - GeneralBanner Payson Medical Centernal Medicine04/23/22Team MemberRelationshipSpecialtyStart Date End Date Radames Mart MD [address] [place] [address] PCP - ACO [facility]04/21/23 Radames Mart MD [address] [place] [address] PCP - [facility]Log[facility]06/16/23Team MemberRelationshipSpecialtyStart Date End Date Radames Mart MD [address] [place] [address] PCP - ACO [facility]04/21/23 Radames Mart MD [address] [place] [address] PCP - GeneralLogan [facility]06/16/23Team MemberRelationshipSpecialtyStart Date End Date Radames aMrt MD [address] [place] [address] PCP - ACO [facility]04/21/23 Radames Mart MD [address] [place] [address] PCP - [facility]06/16/23Team MemberRelationshipSpecialtyStart Date End Date Radames Mart MD [address] [place] [address] PCP - [facility]04/21/23 Radames Mart MD [address] [facility] [address] [place] [address] [facility]06/16/23Team MemberRelationshipSpecialtyStart Date End Date Radames Mart MD [address] [facility] [address] [place] [address] [facility] - [facility]04/21/23 Radames Mart MD [address] [facility] [address] [place] [address] [facility]06/16/23Team MemberRelationshipSpecialtyStart Date End Date Radames Mart MD [address] [facility] [address] [place] [address] [facility]04/21/23 Radames Mart MD [address] [facility] [address] [place] [address] [facility]06/16/23 Scheduled Active and Recently Administ ered Medications (unrecognized section and content) Medication Order//04/2022 ceFAZolin (ANCEF) 2000 mg in dextrose 5 % 50 mL IVPB (COMPLETED) 2,000 mg, IntraVENous, ONCE, 1 dose, On Tue05/03/22 at 1130, Antimicrobial Indications: Surgical Prophylaxis, Pre-op (day of surgery), STAT * 1120 (Given - Provider: Luna Barfield, CISTERN ROOM WORKING SUPERVISOR - PRINTED CIRCUIT BOARD LAYOUT DESIGNER) sodium chloride flush 0.9 % injection 5-40 [...] * 1115 (NoRateChange - Provider: FAITH Stanton PRINTED CIRCUIT BOARD LAYOUT DESIGNER) * 1133 (Rate/Dose Change - Provider: FAITH Stanton PRINTED CIRCUIT BOARD LAYOUT DESIGNER) * 1215 (Stopped - Provider: Drea Keyes [...] BE BASED ON THE PRIMARY CLINICAL RECORDS. [employer] provides no warranty or guarantee of the accuracy or completeness of information in this document.
--- OUTSIDE RECORDS SUMMARY | 2025-10-18 00:04 | XMS_ITS | Encounter Summary ---
Author Organization [facility] Address [address] [place] [address] Care Team Providers Care Balling Machine Operator Name Role Phone Radames Mart MD Unavailable Radames Mart MD Primary Care Provider [phone] Encounter Details DateTypeDepartmentCare Team (Latest Contact Info)Jcugyzsvczj89/14/2025Patient Outreach [facility] [address] [place] [address] Michela Palmer LPN Social History Tobacco UseTypesPacks/DayYears UsedDateSmoking Tobacco: FormerCigarettes Smokeless Tobacco: NeverAlcohol UseStandard Drinks/WeekCommentsYes0 (1 standard drink = 0.6 oz pure alcohol)caffeine 1-2 cups per dayPHQ-2AnswerDate Recorded Patient Health Questionnaire-2 Zrici68811/30/2024Sex and Gender InformationValue Date RecordedSex Assigned at BirthNot on fileLegal NbxOiqp9402/09/2023 7:16 PM EDT Gender IdentityNot on fileSexual [...] possibly. I did give her numbers to [facility] and [facility] as well and she is going to [...] Flowsheet Row Patient Outreach from 10/11/2025 in [facility] with Michela Palmer LPN Week Number Call [...] Plan of Treatment DateTypeDepartmentCare Team (Latest Contact Info)Raerlipiywt37/29/2025 2:00 PM ESTOffice Visit [facility] [address] [facility] [address] [place] [address] Radames Mart MD [address] [facility] [address] [place] [address] documented as of this encounter Visit Diagnoses Not on filedocumented in this encounter Care Teams Team MemberRelationshipSpecialtyStart DateEnd Date Radames Mart MD [address] [facility] [address] [place] [address] PCP - ACO [facility]04/21/23 Radames Mart MD [address] [place] [address] PCP - GeneralInternal Medicine06/16/23documented as of this encounter
--- OUTSIDE RECORDS SUMMARY | 2025-10-18 00:04 | XMS_ITS | Encounter Summary ---
Author Organization [facility] Address [address] [place] [address] Care Team Providers Care Jet Inspector Name Role Phone Radames Mart MD Unavailable [phone] Radames Mart MD Primary Care Provider Reason for Visit * ReasonOnset DateCommentsrequest for home ignxme7310/16/2025 Encounter Details DateTypeDepartmentCare Team (Latest Contact Info)Aktbimegdce92/19/2025Telephone [facility] [place] [facility] [address] [place] [address] Radames Mart MD [address] [place] [address] request for home health Social History Tobacco UseTypesPacks/DayYears UsedDateSmoking Tobacco: FormerCigarettes Smokeless Tobacco: NeverAlcohol UseStandard Drinks/WeekCommentsYes0 (1 standard drink = 0.6 oz pure alcohol)caffeine 1-2 cups per dayPHQ-2AnswerDate Recorded Patient Health Questionnaire-2 Rqlnf87811/30/2024Sex and Gender InformationValue Date RecordedSex Assigned at BirthNot on fileLegal OuzAsrx4602/09/2023 7:16 PM EDT Gender IdentityNot on fileSexual OrientationNot on filedocumented as of this encounter Miscellaneous Notes * Telephone Encounter - Luna Peterson LPN - 10/16/2025 3:51 PM EST FAXED ORDER AND MOST RECENT OFFICE NOTE TO FAX # LISTED * Telephone Encounter - Lolita Estefanyleif - 10/16/2025 3:34 PM EST Hi, my name is Kika and I am calling from [place] and [facility]. I am calling in regards to a patient of Dr Keith's Tunde Quezada. Date of is a [id number] just spoke with his him. And they [...] recent office visit Note in order to [phone]. And then if you do have any questions, you can call me at [phone], option 1. Again, my name is Mary and I am calling from [place] and some [facility]. Thank Have a great day. Gina. documented in this encounter Plan of Treatment DateTypeDepartmentCare Team (Latest Contact Info)Nawusigqbyh72/29/2025 2:00 PM ESTOffice Visit [facility] [place] [facility] [address] [facility] [address] [place] [address] Radames Mart MD [address] [place] [address] documented as of this encounter Visit Diagnoses Not on filedocumented in this encounter Care Teams Team MemberRelationshipSpecialtyStart DateEnd Date Radames Mart MD [address] [place] [address] PCP - ACO [facility]04/21/23 Radames Mart MD [address] [place] [address] PCP - GeneralInternal Medicine06/16/23documented as of this encounter
--- OUTSIDE RECORDS SUMMARY | 2025-10-18 00:04 | XMS_ITS | Clinical Summary ---
Author Organization [facility] Address [address] [facility] [place] [address] Care Team Providers Care Band Instrument Maker Name Role Phone Radames Mart MD Primary Care Provider [phone] Allergies No known active allergies Medications MedicationSigDispense [...] InformationValueDate RecordedSex Assigned at BirthNot on fileLegal SzqSkqs3001/07/2013 6:40 PM EST Gender IdentityNot on fileSexual OrientationNot on file Last Filed Vital Signs Vital SignReadingTime TakenCommentsBlood Czgjqxmq569/8906 12:15 PM EDT Tewbc9513 12:15 PM RJEKdgxvrkhfhg07.8 ??C (98.2 ??F)05/03/2022 12:15 PM EDTRespiratory Sgmv8159 12:15 PM EDTOxygen Vtamfywtyp95%05/03/2022 12:15 PM EDTInhaled Oxygen Concentration--Qtjlpx45.6 kg (160 lb)05/03/2022 10:06 AM QHMPuamqk413.8 cm (5' 10 )05/03/2022 10:06 AM EDTBody Mass Index22.9605/03/2022 10:06 AM EDT Plan of Treatment Health MaintenanceDue DateLast ZlndUmqktammNsreth07/25/1962Depression Screen 1964Hepatitis C wwctzf7007/22/1970DTaP/Tdap/Td vaccine (1 - Tdap)1971 Kwvkgfkaqsy82/25/1997Colorectal Cancer Qpxxkt7307/22/1997FIT/FOBT: Average risk 1997Fecal-DNA (Cologuard): Average risk1997Sigmoidoscopy/CT /25/1997Shingles vaccine (1 of 2)2002AAA hlqvhi4607/22/2017 Pneumococcal 50+ years Vaccine (2 of 2 [...] Team MemberRelationshipSpecialtyStart DateEnd Radames Mart MD [address] [facility] [address] [place] [address] PCP - GeneralInternal Medicine04/23/22
--- OUTSIDE RECORDS SUMMARY | 2025-10-18 00:04 | XMS_ITS | Clinical Summary ---
Author Organization [facility] Address [address] [place] [address] Care Team Providers Care Traffic Observer Name Role Phone Radames Mart MD Primary Care Provider [phone] Medications MedicationSigDispense QuantityRefillsLast FilledStart DateEnd DateStatus dabigatran etexilate (Pradaxa) 150 mg capsule Indications:Paroxysmal atrial fibrillation (CMS/HCC)Take 1 capsule (150 mg) by mouth two times daily. Do not crush or chew. 180 capsule 5Active Active Problems ProblemNoted DateDiagnosed DateChronic post-traumatic stress disorder (PTSD) after zjyaok0109/30/2025 Overview (09/30/2025): Mar 18, 2025 Entered By: BHARAT CROWDER Comment: 50% Chronic respiratory wvdjadx6909/30/20252319Uulsvmev66/03/2025Major depressive disorder, recurrent, fukphqev27/03/2025Paroxysmal atrial qvpfqttopcfa37/03/2025 Exposure to potentially hazardous teqzobgay61/13/2025ge-related nuclear cataract, kkacnkzha14/02/5190Ydvxhetvwujzqa79/02/2731Dpamlls76/19/2023 Centrilobular cqmrbusil69/19/2023hronic obstructive pulmonary gspibnb7106/15/2023 Sryizzkajtdj55/19/2023oronary lgicglolijcuixr40/19/2023Elevated PSA06/15/2023 GERD (gastroesophageal reflux disease)06/15/2023Lung rpcswk3606/15/2023Malignant tumor of yadjwmft75/19/2023Nocturnal leg vmqckn5306/15/2023Oxygen dependent 06/15/2023eripheral vascular pqispzb01/19/2023Pure hypercholesterolemia 06/15/2023History of colonic ixxorq6802/26/2022ramp in lower leg associated with rest06/27/2018 Encounters DateTypeDepartmentCare RyumPzspbyzlurb25/06/2025Orders Only [facility] [address] [place] [address] Angela Noe MA Paroxysmal atrial fibrillation (CMS/HCC) (Primary Dx)from Last 3 Months Social History Tobacco UseTypesPacks/DayYears UsedDateSmoking Tobacco: Never AssessedSex and Gender InformationValueDate RecordedSex Assigned at PnyzpLsck01/30/2025 2:37 PM EDTLegal ImbCwms2705/26/2022 10:58 PM EDTGender DpwcrbmjTytp55/30/2025 2:37 PM EDT Sexual OrientationHeterosexual or Hkwwuafe11/30/2025 2:37 PM EDT Plan of Treatment DateTypeDepartmentCare Team (Latest Contact Info)Wtejhdintbm48/25/2025 2:30 PM ESTOffice Visit [facility] [address] [place] [address] Sunil Mulligan MD [address] [place] [address] Health MaintenanceDue DateLast DoneCommentsCT Wuwgdefxxrwz1952FIT-DNA 1952FIT1952FOBT1952Medicare Annual Wellness (AWV)1950 Meivcxfoayvhd1952Depression Jezryfbli48/25/1964Adult Vcdhnzs5302/26/2002 02/27/1992Fall Risk Vqctatkxb71/25/2017COVID-19 Vaccine ( season) , 02/02/2022, 01/29/2021, Additional history exists Hfpxwyipqux11/07/203204/2Colorectal Cancer Wluusrccu29/07/2032Zoster EkljzfvmYvsyvjyof12/29/2020, 01/28/2020Pneumococcal Vaccine: 50+ YearsCompleted 02/03/2024, 01/28/2020, 05/31/2019, Additional history existsInfluenza Vaccine Roggiirkc62/01/2025, 02/03/2024, 10/19/2022, Additional history existsHIB VaccinesAged OutNo [...] Team MemberRelationshipSpecialtyStart DateEnd Radames Mart MD [address] [facility] [address] [place] [address] PCP - GeneralInternal Vdasyzou34/20/25
--- OUTSIDE RECORDS SUMMARY | 2025-10-18 00:04 | XMS_ITS | Patient Health Record ---
Author Organization [facility] Address [address] [place] [address] [address] [place] [address] Care Team Providers Care Fiber Optics Technician Name Role Phone KAI JOSE Unavailable [phone] RAMON DOS SANTOS Unavailable [phone] BHARAT JOSE ANTONIO Unavailable [phone] Allergies No Known Allergies Reason For Referral No Information Problems Problem Type SNOMED Code ICD Code Onset Dates Problem Status W/U Status Risk Notes Problem Chronic obstructive pulmonary disease (54259364) Chronic obstructive pulmonary disease, unspecified (J44.9) ActiveconfirmedProblemChronic respiratory failure (43504165)Chronic respiratory failure with hypoxia (J96.11)ActiveconfirmedProblemChronic respiratory failure (77891886)Chronic respiratory failure with hypercapnia (J96.12)Activeconfirmed ProblemDependence on supplemental oxygen (138723121688)Dependence on supplemental oxygen (Z99.81)Activeconfirmed Encounters Encounter Location Date Provider Diagnosis [address] [place] [address] 09/19/2025 JOSE ANTONIO NICHOLSON Chronic respiratory failure with hypoxia J96.11 ; Chronic respiratory failure with hypercapnia J96.12 ; Dependence on supplemental oxygen Z99.81 and Chronic obstructive pulmonary disease, unspecified J44.[address] [place] [address] 09/22/2025 JOSE QUINN Chronic respiratory failure with hypoxia J96.11 ; Chronic respiratory failure with hypercapnia J96.12 ; Dependence on supplemental oxygen Z99.81 and Chronic obstructive pulmonary disease, unspecified J44.[address] [place] [address] 09/24/2025 RAMON DOS SANTOS Chronic respiratory failure [...] Date Medicare of [place] [address] [place] [place] [address] [id number] Jeffy Quezada - patient is the insured Medical (General) History Medical History History ICD Code COPD, malignancy, PNA, depre ssion, emphysema, CAD, O2 dependence, malnutrition, EtOH use, acute on chronic hypoxic and hypercapnic respiratory failure, anemia, and HTN Surgical History Surgery Date(Month/Year) Records reviewed Hospitalization History Reason Date(Month/Year) Records reviewed
--- OUTSIDE RECORDS SUMMARY | 2025-10-18 00:04 | XMS_ITS | Clinical Summary ---
Author Organization [facility] Address [address] [place] [address] Care Team Providers Care On Air Director Name Role Phone Radames Mart MD Unavailable [phone] Radames Mart MD Primary Care Provider [phone] Allergies Active AllergyReactionsCriticalityNoted DateCommentsDust Mite Oounmxa5309/30/2025 Medications MedicationSigDispense QuantityRefillsLast FilledStart DateEnd DateStatus clopidogrel [...] tablet Take 2 mg by mouth at moczawe00/08/2024Active ipratropium-albuterol (Duo-Neb) 0.5-2.5 mg/3 mL nebulizer solution [...] tablet Take 120 mg by mouth Daily.07/17/2025tive Turomnu-Svmeodouxtu-Olzajdpgbg (Breztri Aerosphere) 160-9-4.8 MCG/ACT aerosol Indications:Chronic obstructive [...] capsule Take 5 mg by mouth at fndkpyw8509/30/2025Discontinued Yotkgvg-Pksdxgnceyj-Olvppxrnqs (Breztri Aerosphere) 160-9-4.8 MCG/ACT aerosol Indications:Chronic obstructive pulmonary disease, unspecified COPD type (HCC) Inhale 2 puffs in the morning and 2 puffs before bedtime. 10.7 g Discontinued(Reorder) albuterol (2.5 MG/3ML) 0.083% nebulizer solution Take 2.5 mg by nebulization every 6 (six) hours if needed for wheezing or shortness of voaihe17Discontinued Eliquis 5 MG tablet Take 5 mg by mouth in the morning and 5 mg before bedtime. Discontinued(Cost of medication) mirtazapine (Remeron) 15 MG tablet Take 15 mg by mouth at wtifkqs78Discontinued(Therapy completed) Active Problems ProblemNoted DateDiagnosed DateChronic post-traumatic stress disorder (PTSD) after ypseiv6709/30/2025 Overview (09/30/2025): Mar 18, 2025 Entered By: BHARAT CROWDER Comment: 50% Major depressive disorder, recurrent, hofjactd98/03/2970Fwqffhbs83/03/2025 Paroxysmal atrial ojsqvbiryuyh01/03/2025hronic respiratory biojfid9209/30/2025 Exposure to potentially hazardous oizdsteca11/13/2025ge-related nuclear cataract, ucakvhfmg09/02/8965Mbdfjvmyxipxhv62/02/0281Bawktyw09/19/2023 Centrilobular /19/2023hronic obstructive pulmonary cyoxxwj9606/15/2023 Lnpzdkbimjod54/19/2023oronary sjcjmvlhrvnetnv39/19/2023Elevated PSA06/15/2023 GERD (gastroesophageal reflux disease)06/15/2023Lung jvrzch5606/15/2023Malignant tumor of eipiaenu05/19/2023Nocturnal leg hegflr0906/15/2023Oxygen dependent 06/15/2023eripheral vascular hknvorn1206/15/2023ure hypercholesterolemia 06/15/2023History of colonic ajmsdu6302/26/2022ramp in lower leg associated with rest06/27/2018 Encounters DateTypeDepartmentCare DmnpPopvbulkqyg48/19/2025Telephone [facility] [address] [place] [address] Radames Mart MD request for home xraefh96/14/2025Patient Outreach [facility] [address] [place] [address] Michela Palmer LPN 10/03/2025bstract [facility] [place] [address] [place] [address] Radames Mart MD 10/01/2025bstract [facility] [place] [place] [address] Radames Mart MD 09/30/2025 11:00 AM ESTOffice Visit [facility] [place] [address] [place] [address] Irina Tillman PA Paroxysmal atrial fibrillation (HCC) (Primary Dx); Atherosclerosis of [place] coronary artery of [place] heart without angina pectoris; Centrilobular emphysema (HCC); Acute respiratory failure with hypoxia (HCC); Chronic obstructive pulmonary disease, unspecified COPD type (HCC); Oxygen dependent; Anxiety; Gastroesophageal reflux disease without esophagitis; Chronic respiratory failure with hypoxia (HCC); Major depressive disorder, recurrent, moderate (HCC); Chronic idiopathic xojfexfpilsl66/03/2025amboo flowsheet [facility] [place] [address] [place] [address] Irina Tillman PA 09/30/20257295Dlkias46/31/2025Patient Outreach [facility] [address] [place] [address] Michela Palmer LPN 09/27/2025Patient Outreach [facility] [address] [place] [address] Michela Palmer LPN 09/19/2025Patient Outreach [facility] [address] [place] [address] Michela Palmer LPN 09/06/2025linisync Result Encounter [facility] External Department Unsolicited Provider, Generic External Data from Last 3 Months Immunizations ImmunizationAdministration DatesNext DueInfluenza, High Dose Seasonal, Preservative Free09/20/2020,10/31/2019,09/29/2017Influenza, High-dose Seasonal, Quadrivalent, Preservative Free02/03/2024,09/20/2020,10/31/2019Influenza, Seasonal, Quadrivalent, Xnrhkcccli89/22/2022,02/12/2022Influenza, Unspecified 09/06/2015,08/28/2014,11/08/2013Influenza, injectable, mkxsqxbiyzlc80/18/2016 Influenza, injectable, quadrivalent, preservative free09/14/2016Influenza, trivalent, owqhhyuftu67/01/2025Pfizer Purple Cap SARS-CoV-2 Vaccination 02/02/2022,01/29/2021,1Pneumococcal Conjugate PCV Pneumococcal Polysaccharide KTUZ3680,05/31/2019,10/28/2012Tdap04/11/1991 Zoster, Cutndfrftvw38/29/2020,01/28/2020 Social History Tobacco UseTypesPacks/DayYears UsedDateSmoking Tobacco: FormerCigarettes Smokeless Tobacco: Never Tobacco Cessation:Counseling Given: Not Answered Alcohol UseStandard Drinks/WeekCommentsYes0 (1 standard drink = 0.6 oz pure alcohol)caffeine 1-2 cups per dayPHQ-2AnswerDate RecordedPatient Health Questionnaire-2 Ggwkf61311/30/2024Sex and Gender InformationValueDate RecordedSex Assigned at BirthNot on fileLegal WnkOohg7502/09/2023 7:16 PM EDTGender Identity Not on fileSexual OrientationNot on file Last Filed Vital Signs Vital SignReadingTime TakenCommentsBlood Iogwqrce230/6211 11:19 AM EST Gjwzj164809/30/2025 11:19 AM IKUKbdodcqfcva70.4 ??C (99.3 ??F)02/07/2025 1:14 PM EDTRespiratory Cuwb756911/30/2024 11:19 AM ESTOxygen Mmsucktsld85%09/30/2025 11:19 AM ESTInhaled Oxygen Concentration--Vsvpkb79.5 kg (184 lb)09/30/2025 11:19 AM POSNkfker330.8 cm (5' 10 )09/30/2025 11:19 AM ESTBody Mass Index26. 11:19 AM EST Plan of Treatment DateTypeDepartmentCare Team (Latest Contact Info)Mnibovetgwk94/29/2025 2:00 PM ESTOffice Visit [facility] [place] [facility] [address] [facility] [address] [place] [address] Radames Mart MD [address] [facility] [address] [place] [address] Health MaintenanceDue DateLast DoneCommentsCT Criscqcjhusx1952FIT-DNA 1950FIT1950FOBT1952 5408Qfahbknfunrkx1952OVID-19 Vaccine ( season)503/06/2022, 01/29/2021, 01/08/2021olonoscopy /05/2022, 10/13/2015Colorectal Cancer Dlsvngnjb65/07/2032 Pneumococcal Vaccine: 65+ XdfuwLxopzqkfi57/08/2024, 01/28/2020, 05/31/2019, Additional history existsInfluenza YmriupjSqczjydga95/01/2025, 02/03/2024, 10/19/2022, Additional history exists Procedures Procedure NamePriorityDate/TimeAssociated DiagnosisCommentsBLOOD CULTURE 2 Zsqamzb6009/06/2025 11:10 PM EDT BLOOD CULTURE 8Mkphtgc04/10/2025 10:14 PM EDT LDSGKALVJPNGyikxji59/07/2022 12:00 PM EDT Personal history of colonic [...] 11:10 PM EDT1 11:13 PM EDT [facility]ative [facility] 09/12/[facility]25 3:05 PM EDT Authorizing ProviderResult TypeResult StatusGeneric External Data ProviderLAB BLOOD ORDERABLESFinal ResultPerforming OrganizationAddressty/State/ZIP Code Phone Number [facility] * BLOOD CULTURE 1 (09/06/2025 10:14 PM EDT)ComponentValueRef RangeTest Method Analysis TimePerformed AtPathologist SignatureBLOOD CULTURE 1 ??Blood Culture 1 NG5D NO GROWTH AT 5 DAYS.^NO GROWTH AT 5 DAYS. TBHSpecimen (Source)Anatomical Location / LateralityCollection Method / Volume Collection TimeReceived Time09/06/2025 10:14 PM EDT1 10:47 PM EDT Narrative [facility] - 09/12/2025 3:04 PM EDT Authorizing ProviderResult TypeResult StatusGeneric External Data ProviderLAB BLOOD ORDERABLESFinal ResultPerforming OrganizationAddressCity/State/ZIP Code Phone Number [facility] * Colonoscopy (03/04/2022 12:00 PM EDT)Anatomical RegionLateralityModality EndoscopySpecimen (Source)Anatomical Location / LateralityCollection Method / VolumeCollection TimeReceived Time03/04/2022 12:00 PM EDT Narrative 03/04/2022 12:00 PM EDT PERFORMED AT [facility] LOCATION:[id number] Procedure Note CONVERSION, GENERIC - 06/08/2023 PERFORMED AT [facility] LOCATION:[id number] Authorizing ProviderResult TypeResult StatusIsh Kinsey MDENDOSCOPY PROCEDURE ORDERABLESFinal Result from Last 3 Months or Most Recently Relevant to Health Maintenance Insurance Care Teams Team MemberRelationshipSpecialtyStart DateEnd Radames Mart MD [address] [place] [address] PCP - [facility]04/21/23 Radames Mart MD [address] [place] [address] PCP - GeneralInternal Medicine06/16/23
--- OUTSIDE RECORDS SUMMARY | 2025-10-18 00:04 | XMS_ITS | Clinical Summary ---
Author Organization [facility] tem Address [id number] [address] [place] [address] Care Team Providers Care Teacher Vocal Name Role Phone Unavailable Primary Care Provider Unavailabl e Social History Tobacco UseTypesPacks/DayYears UsedDateSmoking Tobacco: Never AssessedChildcare AnswerDate XteakadjEncththhgAfyomhj28/12/2019EmploymentAnswerDate Recorded QgybcwyqplNrjqdbz08/12/2019Purpose - LifeAnswerDate RecordedPurpose and direction in zrpiVwmzyzp00/11/2021ex and Gender InformationValueDate Recorded Sex Assigned at BirthNot on fileLegal LhvChgh3107/03/2015 12:03 PM EDTGender IdentityNot on fileSexual OrientationNot on file Last Filed Vital Signs Vital SignReadingTime TakenCommentsBlood Pressure--Pulse--Temperature-- Respiratory Rate--Oxygen Saturation--Inhaled Oxygen Concentration--Clyvom73.3 kg (155 lb)03/10/2022 1:00 AM EDTHeight--Body Mass Index-- Plan of Treatment Health MaintenanceDue DateLast DoneCommentsDepression Qdxbbqhzg77/25/1964Tobacco Wsioldiyh93/25/1964Adult BMI Gpidwirti05/25/1970DTaP,Tdap and Td Vaccines (1 - Tdap)1971Zoster (Shingles) Vaccine (1 of 2)2002Fall Risk Screening 2017Influenza Ebuwvvy54/01/597885/, 10/31/2019, 10/31/2019, Additional history existsRSV ( or age 60+ yrs) (1 - 1-dose 75+ series) 2027 [employer] Not on file Insurance
[2025-10-18] MEDS: DOXYCYCLINE HYCLATE 100 MG in 0.9 % SODIUM CHLORIDE 100 ML IV ×3 (00:25→23:49)
[2025-10-18 05:46] LABS: Hematocrit 32.8 % (42.0-54.0); Hemoglobin 9.8 g/dL (14.0-18.0); Mean Corpuscular HGB Conc 29.9 g/dL (29.9-35.2); Mean Corpuscular Hemoglobin 28.6 pg (25.9-34.0); Mean Corpuscular Volume 95.6 fL (80.0-94.0); Platelet Count 273 10^3/uL (150-450); Red Blood Count 3.43 10^6/uL (4.70-6.10); White Blood Count 5.7 10^3/uL (4.0-11.0)
[2025-10-18 06:10] LABS: Alanine Aminotransferase 14 U/L (16-63); Albumin Globulin Ratio 0.7; Albumin Level 2.2 g/dL (3.4-5.0); Alkaline Phosphatase 70 U/L (46-116); Anion Gap 4.9; Aspartate Amino Transferase 12 U/L (15-37); Blood Urea Nitrogen 20.0 mg/dL (7.0-18.0); Calcium 8.2 mg/dL (8.5-10.1); Carbon Dioxide 40.6 mmol/L (21.0-32.0); Chloride 102 mmol/L (98-107); Estimated GFR (African America >60 (>=60 mL/min/1.73m^2); Estimated GFR (Non-African Ame >60 (>=60 mL/min/1.73m^2); Globulin 3.3 g/dL; Glucose 193 mg/dL (74-106); Potassium 3.5 mmol/L (3.5-5.1); Sodium 144 mmol/L (136-145); Total Protein 5.5 g/dL (6.4-8.2)
[2025-10-18] MEDS: METHYLPREDNISOLONE SOD SUCC PF 40 MG/ML VIAL IVP ×2 (06:13→17:49)
[2025-10-18 06:19] LABS: Basophils Abs Manual 0.00 10^3/uL (0.00-0.10); Basophils Percent Manual 0.0 % (0.2-2.0); Eosinophils Absolute Manual 0.05 10^3/uL (0.00-0.70); Eosinophils Percent Manual 1.0 % (0.9-7.0); Lymphocytes Absolute Manual 0.57 10^3/uL (1.20-3.80); Lymphocytes Percent Manual 10.0 % (20.5-60.0); Monocytes Absolute Manual 0.05 10^3/uL (0.30-0.80); Monocytes Percent Manual 1.0 % (1.7-12.0); Segmented Neut Absolute Manual 5.01 10^3/uL (1.4-6.5); Segmented Neutrophils % Manual 88.0 (43.0-75.0)
[2025-10-18] MEDS: APIXABAN 5 MG TABLET PO ×2 (09:18→23:49)
[2025-10-18] MEDS: ATORVASTATIN CALCIUM 20 MG TABLET PO (09:18)
[2025-10-18] MEDS: PANTOPRAZOLE SODIUM 40 MG TABLET.DR PO (09:18)
[2025-10-18] MEDS: IPRATROPIUM/ALBUTEROL SULFATE 3 ML AMPUL.NEB IH ×3 (09:19→20:10)
--- NOTE | 2025-10-18 09:31 | RESP.RT ---
Titrated to 45%
--- NOTE | 2025-10-18 11:47 | PM.HP ---
HPI H&P: HPI History of Present Illness Chief complaint: COPD exacerbation. Hypoxic respiratory failure Narrative: Mr. Donovan is a 75-year-old gentleman with a known diagnosis of COPD. Patient has been doing fairly well up until 5 days ago when he started having progressive cough, congestion, wheezing up to the point that he could not handle it any longer and decided to come to the emergency room. Moist cough. No chest pain. No abdominal pain, nausea or vomiting. Patient has 2 to 3 L of oxygen at home. Does not wear it all the time. He quit smoking 17 years ago. Opioid HPI Opioid Management Most Recent Pain and Opioid Data: Last Pain Scale 0 09/17/25, 12:21 Last Pain Intensity 0 09/16/25, 10:15 Last Pain Assessment Today, 11:00 Last ORT Total Score 0 10/17/25, 23:40 Last ORT Risk Category Low Risk 10/17/25, 23:40 Ur Phencyclidine Scrn, (NEGATIVE) Negative 09/07/25, 23:30 Review of Systems ROS Status of ROS 10 or more systems reviewed and unremarkable except as noted in history and below PFSH PFS Medical History History of bilevel positive airway pressure (BiPAP) therapy ?Z92.89 - Personal history of other medical treatment (ICD-10) Hallucination, visual ?R44.1 - Visual hallucinations (ICD-10) Hallucination ?R44.3 - Hallucinations, unspecified (ICD-10) New onset a-fib ?I48.91 - Unspecified atrial fibrillation (ICD-10) Cancer ?C80.1 - Malignant (primary) neoplasm, unspecified (ICD-10) Family History Son No problems noted. Sister Cancer Sister Cancer Stroke Mother Myocardial infarct Father Myocardial infarct Social History Within the past year, how often did you have a drink containing alcohol: never Within the past year, how often did you have six or more drinks on one occasion: never Score interpretation: A score less than 4 is consistent with normal alcohol consumption. 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 Known occupational exposures/hazards: Yes Highest level of school completed/degree received: high school graduate Are you now , , , , never or living with a partner: Little interest or pleasure in doing things: not at all Feeling down, depressed, or hopeless: not at all Meds Home Medications and Allergies Home Medications ?Medication ?Instructions ?Recorded ?Confirmed ?Type albuterol sulfate 2.5 mg/3 mL 2.5 mg inhalation Q6H PRN 09/06/25 10/17/25 History (0.083 %) solution for nebulization shortness of breath or wheezing ezetimibe 10 mg-simvastatin 40 mg 1 tab PO DAILY 09/06/25 10/17/25 History tablet (Vytorin) ipratropium 0.5 mg-albuterol 3 mg 3 ml inhalation Q4H PRN shortness 09/06/25 10/18/25 History (2.5 mg base)/3 mL nebulization of breath or wheezing soln linaclotide 145 mcg capsule 145 mcg PO DAILY 09/06/25 10/18/25 History mirtazapine 30 mg tablet 30 mg PO HS 09/06/25 10/17/25 History omeprazole 20 mg capsule,delayed 20 mg PO .unknown 09/06/25 10/17/25 History release acetazolamide 250 mg tablet 250 mg PO DAILY 3 days #3 tabs 09/17/25 10/18/25 Rx alprazolam 0.25 mg tablet 0.25 mg PO QHS PRN anxiety 3 days 09/17/25 10/17/25 Rx #3 tabs apixaban 5 mg tablet (Eliquis) 5 mg PO BID 30 days #60 tabs 09/17/25 10/17/25 Rx atorvastatin 20 mg tablet 20 mg PO DAILY 30 days #30 tabs 09/17/25 10/17/25 Rx budesonide 0.5 mg/2 mL suspension 0.5 mg (2 mL) inhalation 09/17/25 10/18/25 Rx for nebulization RTBID@1100,2300 30 days #60 mL diltiazem HCl 60 mg tablet 30 mg (1/2 x 60 mg) PO QID 30 days 09/17/25 10/17/25 Rx #60 tabs guaifenesin 600 mg tablet, 1,200 mg (2 x 600 mg) PO BID 10 09/17/25 10/17/25 Rx extended release 12 hr (Mucinex) days #40 tabs sennosides 8.6 mg-docusate sodium 1 tab PO QD PRN Constipation 10 09/17/25 10/18/25 Rx 50 mg tablet days #10 tabs Allergies Allergy/AdvReac Type Severity Reaction Status Date / Time No Known Drug Allergies Allergy Verified 10/17/25 18:32 Exam Narrative Exam Narrative: [pt is awake and alert. oriented to place, time and person. Patient had moderate to severe respiratory distress on presentation but now it is mild to moderate. Respiratory is about 20. HEENT: Aline conjunctiva and NL buccal mucosa Neck: Supple, no tenderness Endocrine: No Thyromegaly. Vascular: No JVD or carotid bruit. Lymphatic: No cervical lymphadenopathy. Chest: Bilateral wheezing or rhonchi. Heart RRR, no extra sound or murmur. Abd: Soft, no tenderness, no rebound and no rigidity. Increase abd girth therefore clinically I could not exclude the possibility of intra abd mass or organomegaly. LE: No cyanosis or clubbing, no varices or edema. Neuro: A A O. Nl speech, comprehension and attention. Nl and symetrical motor and tone examination through out. []] Constitutional Vital Signs, click to edit/add: Last Vital Signs Temp 98.8 F 10/18/25 04:15 Pulse 86 10/18/25 10:00 Resp 20 10/18/25 09:19 BP 124/74 10/18/25 07:03 Pulse Ox 90 L 10/18/25 10:00 O2 Del Method Vapotherm 10/18/25 09:19 O2 Flow Rate 40 10/18/25 09:19 FiO2 50 10/18/25 09:19 Results Labs Labs: Short CBC 10/17/25 10/18/25 Range/Units 18:30 05:18 WBC 6.5 5.7 (4.0-11.0) 10^3/uL Hgb 10.4 L 9.8 L (14.0-18.0) g/dL Hct 35.4 L 32.8 L (42.0-54.0) % Plt Count 269 273 (150-450) 10^3/uL BMP 10/17/25 10/18/25 18:30 05:18 Sodium 148 H 144 Potassium 4.3 3.5 Chloride 106 102 Carbon Dioxide 42.7 H 40.6 H BUN 17.0 20.0 H Creatinine 0.98 0.92 Glucose 92 193 H Calcium 8.6 8.2 L Liver Function 10/18/25 Range/Units 05:18 Total Bilirubin 0.4 (0.2-1.0) mg/dL AST 12 L (15-37) U/L ALT 14 L (16-63) U/L Alkaline Phosphatase 70 (46-116) U/L Albumin 2.2 L (3.4-5.0) g/dL ABG ABG results: 10/17/25 10/17/25 18:37 20:43 ABG pH 7.340 L 7.385 ABG pCO2 72.3 H* 64.8 H* ABG pO2 65.6 L 62.7 L ABG HCO3 38.9 H 38.7 H ABG O2 Saturation 93.0 93.2 ABG Base Excess 13.2 H 13.7 H Assessment and Plan Assessment and Plan (1) COPD exacerbation: Plan Acute COPD exacerbation Acute on chronic hypoxic respiratory failure. Acute on chronic hypercapnic respiratory failure Acute bronchitis, probable pneumonia Acute diastolic heart failure with interstitial edema I started the patient Solu-Medrol, albuterol, Atrovent. Start the patient on Pulmicort nebulizer twice a day. Start the patient on doxycycline and ceftriaxone CAT scan was completed recently showed extensive emphysema and scarring. Monitor recovery and to proceed with additional needed diagnostic and therapeutic invention based on the clinical progression and follow-up test result. Paroxysmal A-fib. Continue Cardizem and Eliquis History of CAD with stenting many years ago. Patient is currently on Eliquis. No clear justification to resume Plavix more than 10 years after stent while being on Eliquis at the same time Change Plavix to aspirin Previous tobacco addiction and increased risk for lung cancer. I recommend patient to have yearly low-dose CAT scan of the chest to screen for lung cancer to be arranged by PCP. Ongoing alcohol consumption. Patient admitted that he drinks about 3 alcoholic liquor beverages a week. Maybe patient is minimizing his consumption. I started patient on thiamine and folic acid to reduce his risk having acute Warnicke encephalopathy. Anemia, no evidence of acute blood loss. Patient will likely require to have anemia workup to be done in the outpatient setting to be handled by PCP in collaboration with other needed outpatient providers. This may include but not limited to EGD, colonoscopy, referral to see hematology and other needed age-appropriate cancer screening. Cachexia, frailty, muscle wasting and atrophy, protein calorie malnutrition Patient will need weight loss and cachexia workup including but not limited to evaluation to rule out underlying malignancy to be handled in the outpatient by PCP. Meanwhile I will start patient on oral protein supplementation. Chronic, subacute medical conditions not listed above, abnormal labs and imaging, incidental findings seen on labs and or imaging. These would need to be addressed. Could be addressed later on or in the outpatient setting by PCP collaboration with other needed outpatient providers when time and condition are appropriate.
[2025-10-18] MEDS: DILTIAZEM HCL 120 MG CAP.ER.24H PO (12:27)
[2025-10-18] MEDS: FOLIC ACID 1 MG TABLET PO (12:27)
[2025-10-18] MEDS: ASPIRIN 81 MG TABLET.DR PO (12:27)
[2025-10-18] MEDS: POTASSIUM CHLORIDE 10 MEQ ER TABLET 40 MEQ PO (12:27)
[2025-10-18] MEDS: THIAMINE HCL 200 MG/2 ML VIAL IM (12:28)
[2025-10-18] MEDS: FUROSEMIDE 40 MG/4 ML VIAL IVP (12:28)
--- NOTE | 2025-10-18 12:44 | CM.NOTE ---
Rounds made with Dr. Gomez, discussed plan of care with pt. Pt to have PT/OT evaluation today to determine discharge needs. Pt on 3L of Home 02.
--- NOTE | 2025-10-18 14:15 | SWNOTE1 ---
Important Message from Medicare reviewed and discussed with patient and pt's . Pt and pt's verbalized understanding and pt's signed the form. Original given to patient and pt's and copy placed in patient?s chart.
--- NOTE | 2025-10-18 14:16 | SWNOTE1 ---
SW met with pt and pt's in room. Pt has been home for a few weeks. Him and his were not pleased with [facility]. They voiced it was not very kept and short staffed. Also therapy did not do too much with him. He stayed for about a week and half and then went back home. He has no services coming in to the home at this time. He does have home oxygen from [facility] at 2 liters continuos. SW did call and confirm this during his last stay in August, his script was for 2 liters continuous and from April of 2025. Pt and are aware that he may need skilled care again. Pt voiced he wants his to look at the facility before he agrees to go anywhere. Pt is still on high flow oxygen at this time. Pt and are not sure where they want him to go. SW did remind them that we had went with [facility] due to respiratory issues and the higher flow oxygen. Many facilities can only go up to 6 liters of oxygen nasal canula, some can go up to 10, but are hesitant with that. They voiced understanding. SW will check back on Tuesday. Pt and were provided with a list from Medicare.gov with star ratings and SW encouraged them to review facilities online. They voiced understanding.
[2025-10-18] MEDS: BUDESONIDE 0.5 MG/2 ML AMPULE NEB IH (20:10)
[2025-10-18] MEDS: THIAMINE MONONITRATE (VIT B1) 100 MG TABLET 200 MG PO (23:49)
[2025-10-19] VITALS (79 sets, daily range): BP systolic 84–126; BP diastolic 57–68; PULSE 58–129; RESP 14; TEMP 36.6–37.1; O2SAT 84–99
--- NOTE | 2025-10-19 06:02 | ECG_ITS ---
The [facility] Test Date: 2025-10-19 Pat Name: BRIAN BARNARD Department: Room: 2221 Gender: Male Service Center Assistant: : 1950 Requested By: [id number] Order Number: [id number] Reading MD: JUSTIN NASH M.D. Measurements Intervals [place] Rate: 71 P: 270 WY: 124 QRS: 72 QRSD: 92 T: 72 QT: 398 QTc: 421 Interpretive Statements SINUS RHYTHM with ectopic atrial complexes ST ELEVATION, CONSIDER INFERIOR INJURY abnormal ECG Compared to ECG 10/17/2025 19:05:38 Ectopic atrial complexes now present Ventricular premature complex(es) no longer present ST elevation now evident in inferior leads Electronically Signed On 10-20-2025 20:55:06 EST by JUSTIN NASH M.D.
[2025-10-19] MEDS: METHYLPREDNISOLONE SOD SUCC PF 40 MG/ML VIAL IVP ×2 (06:18→17:30)
--- NOTE | 2025-10-19 06:40 | ECG_ITS ---
The [facility] Test Date: 2025-10-19 Pat Name: BRIAN BARNARD Department: Room: 2221 Gender: Male Fingernail Former: : 1950 Requested By: [id number] Order Number: [id number] Reading MD: JUSTIN NASH M.D. Measurements Intervals [place] Rate: 58 P: 51 CT: 162 QRS: 65 QRSD: 94 T: 67 QT: 440 QTc: 436 Interpretive Statements Sinus bradycardia with frequent premature ectopic atrial complexes ST ELEVATION, CONSIDER INFERIOR INJURY 9150 abnormal ECG Compared to ECG 10/19/2025 04:14:49 ST elevation still present in inferior leads Electronically Signed On 10-20-2025 21:01:53 EST by JUSTIN NASH M.D.
[2025-10-19] MEDS: ATORVASTATIN CALCIUM 20 MG TABLET PO (08:10)
[2025-10-19] MEDS: PANTOPRAZOLE SODIUM 40 MG TABLET.DR PO (08:10)
[2025-10-19] MEDS: THIAMINE MONONITRATE (VIT B1) 100 MG TABLET 200 MG PO ×2 (08:10→21:23)
[2025-10-19] MEDS: APIXABAN 5 MG TABLET PO ×2 (08:10→21:23)
[2025-10-19] MEDS: FOLIC ACID 1 MG TABLET PO (08:10)
[2025-10-19] MEDS: ASPIRIN 81 MG TABLET.DR PO (08:10)
[2025-10-19] MEDS: DILTIAZEM HCL 120 MG CAP.ER.24H PO (08:10)
[2025-10-19] MEDS: IPRATROPIUM/ALBUTEROL SULFATE 3 ML AMPUL.NEB IH ×3 (09:15→20:30)
[2025-10-19] MEDS: BUDESONIDE 0.5 MG/2 ML AMPULE NEB IH ×2 (09:15→20:30)
--- NOTE | 2025-10-19 09:25 | PM.PN ---
Progress Note: Subjective Subjective Interval history: Patient continues to be hypoxic requiring high flow oxygen. The nurse tried to wean him down but his saturation dropped therefore he is up to 40 L 50%. Persistent moist cough. No chest pain. No abdominal pain. Exam Narrative Exam Narrative: [pt is awake and alert. oriented to place, time and person. Patient had moderate to severe respiratory distress on presentation to the emergency room but now it is mild to moderate. Respiratory is about 20. HEENT: [place] conjunctiva and NL buccal mucosa Neck: Supple, no tenderness Endocrine: No Thyromegaly. Vascular: No JVD or carotid bruit. Lymphatic: No cervical lymphadenopathy. Chest: Bilateral wheezing or rhonchi. Diminished breath sound. Heart RRR, no extra sound or murmur. Abd: Soft, no tenderness, no rebound and no rigidity. Increase abd girth therefore clinically I could not exclude the possibility of intra abd mass or organomegaly. LE: No cyanosis or clubbing, no varices or edema. Neuro: A A O. Nl speech, comprehension and attention. Nl and symetrical motor and tone examination through out. []] Constitutional Vital Signs, click to edit/add: Last Vital Signs Temp 98.3 F 10/19/25 07:12 Pulse 79 10/19/25 09:18 Resp 20 10/19/25 09:18 BP 126/64 10/19/25 05:30 Pulse Ox 99 10/19/25 09:18 O2 Del Method Vapotherm 10/19/25 09:18 O2 Flow Rate 40 10/19/25 09:18 FiO2 50 10/19/25 09:18 Progress Note: A&P Assessment and Plan (1) COPD exacerbation: Plan Acute COPD exacerbation. I suspect based on the recent CAT scan imaging that patient has moderate to advanced emphysematous lung with poor air exchange Acute on chronic hypoxic respiratory failure. Acute on chronic hypercapnic respiratory failure. Patient continues to require high flow oxygen 40 L, 50%. Saturation is at the lower 90%. Acute bronchitis, probable pneumonia Acute diastolic heart failure with interstitial edema Basilar infiltration, could be edema versus infectious process/pneumonia. I started the patient Solu-Medrol, albuterol, Atrovent. Start the patient on Pulmicort nebulizer twice a day. Continue doxycycline and ceftriaxone Additional doses of diuretics. CAT scan was completed recently showed extensive emphysema and scarring. Monitor recovery and to proceed with additional needed diagnostic and therapeutic invention based on the clinical progression and follow-up test result. Paroxysmal A-fib. Continue Cardizem and Eliquis History of CAD with stenting many years ago. Patient is currently on Eliquis. No clear justification to resume Plavix more than 10 years after stent while being on Eliquis at the same time Change Plavix to aspirin Previous tobacco addiction and increased risk for lung cancer. I recommend patient to have yearly low-dose CAT scan of the chest to screen for lung cancer to be arranged by PCP. Ongoing alcohol consumption. Patient admitted that he drinks about 3 alcoholic liquor beverages a week. Maybe patient is minimizing his consumption. I started patient on thiamine and folic acid to reduce his risk having acute Warnicke encephalopathy. Anemia, no evidence of acute blood loss. Patient will likely require to have anemia workup to be done in the outpatient setting to be handled by PCP in collaboration with other needed outpatient providers. This may include but not limited to EGD, colonoscopy, referral to see hematology and other needed age-appropriate cancer screening. Cachexia, frailty, muscle wasting and atrophy, protein calorie malnutrition Patient will need weight loss and cachexia workup including but not limited to evaluation to rule out underlying malignancy to be handled in the outpatient by PCP. Meanwhile I will start patient on oral protein supplementation. Chronic, subacute medical conditions not listed above, abnormal labs and imaging, incidental findings seen on labs and or imaging. These would need to be addressed. Could be addressed later on or in the outpatient setting by PCP collaboration with other needed outpatient providers when time and condition are appropriate.
[2025-10-19] MEDS: POTASSIUM CHLORIDE 10 MEQ ER TABLET 20 MEQ PO ×2 (09:52→21:23)
[2025-10-19] MEDS: FUROSEMIDE 40 MG/4 ML VIAL IVP (09:52)
[2025-10-19] MEDS: DOXYCYCLINE HYCLATE 100 MG in 0.9 % SODIUM CHLORIDE 100 ML IV ×2 (09:52→22:00)
--- NOTE | 2025-10-19 10:00 | PT.DAILY ---
Physical Therapy Daily Note PT Daily Note/Assess Start: 10/19/25 09:54 Freq: Status: Active Protocol: Document 10/19/25 09:35 JACQUELINE (Rec: 10/19/25 10:00 JACQUELINE [id number]) Physical Therapy Daily Note/Assessment Time In/Time Out Time In 09:35 Time Out 09:50 Pain In Pain N/A Pain Out Pain N/A Subjective Subjective Patient denies pain. Patient states he is just miserable. Agrees to get up in chair. Therapeutic Activity Time Therapeutic Activity 15 Minutes (minutes) Therapeutic Activity 1 Units Therapeutic Activity Treatment Bed Mobility Ability Minimum Assist Chair Transfer Contact Guard Assist Ability Therapeutic Activity Gait 8' to chair with RW CGA. Static standing 2 min. Comments Gait limited due to vapo-therm. Total Physical Therapy Time Total Therapy 15 Minutes Total Physical 1 Therapy Units Summary Daily Note Summary Patient in bed and agrees to get up in chair. Bed mobility min assist more due to malfunction of bed causing a hole that patient had difficulty coming up into sitting. Seated EOB x 5 min prior to gait. Patient on vapo-therm. therefore gait is limited. Gait 8' with CGA, becomes SOB quickly. SPO2 88 percent. 2-3 min recovery and SPO2 back to 93 percent. Decreased assistance required with gait and mobility, limited due to SOB and decreased SPO2 stats. Patient in chair with call light in reach, nursing was still present in room . All needs met.
[2025-10-19] MEDS: ALPRAZOLAM 0.25 MG TABLET 0.5 MG PO (11:51)
[2025-10-19] MEDS: FUROSEMIDE 20 MG/2 ML VIAL IVP ×2 (14:47→22:04)
[2025-10-20] VITALS (83 sets, daily range): BP systolic 95–123; BP diastolic 59–74; PULSE 56–120; RESP 14; TEMP 36.4–36.7; O2SAT 81–98
[2025-10-20] MEDS: METHYLPREDNISOLONE SOD SUCC PF 40 MG/ML VIAL IVP ×2 (06:31→17:31)
[2025-10-20 06:56] LABS: Anion Gap 8.6; Blood Urea Nitrogen 28.0 mg/dL (7.0-18.0); Calcium 8.2 mg/dL (8.5-10.1); Carbon Dioxide 39.0 mmol/L (21.0-32.0); Chloride 100 mmol/L (98-107); Estimated GFR (African America >60 (>=60 mL/min/1.73m^2); Estimated GFR (Non-African Ame >60 (>=60 mL/min/1.73m^2); Glucose 174 mg/dL (74-106); Potassium 4.6 mmol/L (3.5-5.1); Sodium 143 mmol/L (136-145)
[2025-10-20] MEDS: FOLIC ACID 1 MG TABLET PO (08:18)
[2025-10-20] MEDS: ATORVASTATIN CALCIUM 20 MG TABLET PO (08:18)
[2025-10-20] MEDS: PANTOPRAZOLE SODIUM 40 MG TABLET.DR PO (08:18)
[2025-10-20] MEDS: ASPIRIN 81 MG TABLET.DR PO (08:18)
[2025-10-20] MEDS: DILTIAZEM HCL 120 MG CAP.ER.24H PO (08:19)
[2025-10-20] MEDS: THIAMINE MONONITRATE (VIT B1) 100 MG TABLET 200 MG PO ×2 (08:19→21:20)
[2025-10-20] MEDS: APIXABAN 5 MG TABLET PO ×2 (08:19→21:20)
[2025-10-20] MEDS: ALPRAZOLAM 0.25 MG TABLET 0.5 MG PO (08:22)
[2025-10-20] MEDS: DOXYCYCLINE HYCLATE 100 MG in 0.9 % SODIUM CHLORIDE 100 ML IV ×2 (09:14→22:16)
--- NOTE | 2025-10-20 09:39 | XR_ITS ---
The [address] [address] Patient Name: BRIAN BARNARD MRN: [id number] date: 1950 Sex: M Assigned Patient Location: [place] Current Patient Location: [place] Accession/Order Number: [id number] Exam Date: 10/20/2025 11:45 Report Date: 10/20/2025 12:13 At the request of: SOCO CHAHAL MD Procedure: XR chest 1V Single view chest: CLINICAL HISTORY: basilar infiltrates, follow up and comparison COMPARISON: Chest 10/17/2025 FINDINGS: The heart is normal in size. Improved aeration of the lower lobe since the prior study. No pneumothorax pleural effusion or free air. IMPRESSION: IMPROVED AERATION OF THE LOWER LOBE SINCE THE PRIOR STUDY. Impression dictated by: Romeo Mg Jr., D.O. 10/20/2025 12:13 PM Dictation Location: [place] [address] Electronically authenticated by: [id number] Y Date: 10/20/2025 12:13
--- NOTE | 2025-10-20 09:42 | P.PN_ITS ---
Progress Note: Subjective Subjective Interval history: Patient continues to be hypoxic requiring high flow oxygen. Patient is requiring less high flow oxygen. Down to 40 L, 40%. Saturation is 96%. Patient is feeling better overall. Exam Narrative Exam Narrative: [pt is awake and alert. oriented to place, time and person. Patient had moderate to severe respiratory distress on presentation to the emergency room but now it is mild to moderate. Respiratory is about 20. HEENT: [place] conjunctiva and NL buccal mucosa Neck: Supple, no tenderness Endocrine: No Thyromegaly. Vascular: No JVD or carotid bruit. Lymphatic: No cervical lymphadenopathy. Chest: Bilateral wheezing or rhonchi. Diminished breath sound. Heart RRR, no extra sound or murmur. Abd: Soft, no tenderness, no rebound and no rigidity. Increase abd girth therefore clinically I could not exclude the possibility of intra abd mass or organomegaly. LE: No cyanosis or clubbing, no varices or edema. Neuro: A A O. Nl speech, comprehension and attention. Nl and symetrical motor and tone examination through out. []] Constitutional Vital Signs, click to edit/add: Last Vital Signs Temp 98.0 F 10/20/25 07:26 Pulse 61 10/20/25 07:54 Resp 19 10/20/25 07:30 BP 120/74 10/20/25 07:26 Pulse Ox 92 L 10/20/25 07:54 O2 Del Method Vapotherm 10/19/25 20:30 O2 Flow Rate 40 10/20/25 07:26 FiO2 40 10/20/25 07:26 Progress Note: Objective Labs Labs: [facility] 10/20/25 05:55 Sodium 143 Potassium 4.6 Chloride 100 Carbon Dioxide 39.0 H BUN 28.0 H Creatinine 0.89 Glucose 174 H Calcium 8.2 L Progress Note: A&P Assessment and Plan (1) COPD exacerbation: Plan Acute COPD exacerbation. I suspect based on the recent CAT scan imaging that patient has moderate to advanced emphysematous lung with poor air exchange Acute on chronic hypoxic respiratory failure. Acute on chronic hypercapnic respiratory failure. Less high flow oxygen support. Down to 40 L, 40%. Saturation 94-96%. Acute bronchitis, probable basilar pneumonia Acute diastolic heart failure with interstitial edema. On diuretic. Patient is 3 L negative balance Basilar infiltration, could be edema versus infectious process/pneumonia. Continue Solu-Medrol. Continue DuoNeb and Pulmicort inhaler. Continue ceftriaxone and doxycycline intravenously. Continue diuretics intravenously. Continue oxygen high flow support. Wean off if possible. Repeat chest x-ray today. Paroxysmal A-fib. Continue Cardizem and Eliquis Steroid-induced hyperglycemia Start patient on Accu-Chek with sliding scale coverage History of CAD with stenting many years ago. Patient is currently on Eliquis. No clear justification to resume Plavix more than 10 years after stent while being on Eliquis at the same time Change Plavix to aspirin Previous tobacco addiction and increased risk for lung cancer. I recommend patient to have yearly low-dose CAT scan of the chest to screen for lung cancer to be arranged by PCP. Ongoing alcohol consumption. Patient admitted that he drinks about 3 alcoholic liquor beverages a week. Maybe patient is minimizing his consumption. I started patient on thiamine and folic acid to reduce his risk having acute Warnicke encephalopathy. Anemia, no evidence of acute blood loss. Patient will likely require to have anemia workup to be done in the outpatient setting to be handled by PCP in collaboration with other needed outpatient providers. This may include but not limited to EGD, colonoscopy, referral to see hematology and other needed age-appropriate cancer screening. Cachexia, frailty, muscle wasting and atrophy, protein calorie malnutrition Patient will need weight loss and cachexia workup including but not limited to evaluation to rule out underlying malignancy to be handled in the outpatient by PCP. Meanwhile I will start patient on oral protein supplementation. Chronic, subacute medical conditions not listed above, abnormal labs and imaging, incidental findings seen on labs and or imaging. These would need to be addressed. Could be addressed later on or in the outpatient setting by PCP collaboration with other needed outpatient providers when time and condition are appropriate.
[2025-10-20] MEDS: FUROSEMIDE 20 MG/2 ML VIAL IVP ×3 (10:24→21:20)
[2025-10-20] MEDS: POTASSIUM CHLORIDE 10 MEQ ER TABLET PO ×2 (10:24→21:20)
[2025-10-20] MEDS: BUDESONIDE 0.5 MG/2 ML AMPULE NEB IH ×2 (11:12→20:43)
[2025-10-20] MEDS: IPRATROPIUM/ALBUTEROL SULFATE 3 ML AMPUL.NEB IH ×3 (11:12→20:43)
[2025-10-21] VITALS (85 sets, daily range): BP systolic 106–131; BP diastolic 60–76; PULSE 56–112; TEMP 36.6–36.9; O2SAT 85–99
[2025-10-21] MEDS: METHYLPREDNISOLONE SOD SUCC PF 40 MG/ML VIAL IVP ×2 (06:07→17:53)
[2025-10-21] MEDS: PANTOPRAZOLE SODIUM 40 MG TABLET.DR PO (08:03)
[2025-10-21] MEDS: THIAMINE MONONITRATE (VIT B1) 100 MG TABLET 200 MG PO ×2 (08:03→20:58)
[2025-10-21] MEDS: APIXABAN 5 MG TABLET PO ×2 (08:03→20:58)
[2025-10-21] MEDS: DILTIAZEM HCL 120 MG CAP.ER.24H PO (08:03)
[2025-10-21] MEDS: ATORVASTATIN CALCIUM 20 MG TABLET PO (08:03)
[2025-10-21] MEDS: ASPIRIN 81 MG TABLET.DR PO (08:03)
[2025-10-21] MEDS: FOLIC ACID 1 MG TABLET PO (08:03)
--- NOTE | 2025-10-21 08:20 | CM.NOTE ---
Rounds made with Dr. Gomez, discussed plan of care with pt. Discussed with adaptive physical educator therapy at discharge, pt is in agreement. CM or SW will be back to speak with pt regarding discharge planning.
[2025-10-21] MEDS: IPRATROPIUM/ALBUTEROL SULFATE 3 ML AMPUL.NEB IH ×3 (09:40→21:13)
[2025-10-21] MEDS: BUDESONIDE 0.5 MG/2 ML AMPULE NEB IH ×2 (09:40→21:13)
--- NOTE | 2025-10-21 09:43 | P.PN_ITS ---
Progress Note: Subjective Subjective Interval history: His respiratory status improved. He is on 3 L nasal cannula. Persistent cough. No abdominal pain. Fair appetite. Weakness and fatigue. Exam Narrative Exam Narrative: [pt is awake and alert. oriented to place, time and person. Patient had moderate to severe respiratory distress on presentation to the emergency room but now it is mild. Respiratory is about 20. HEENT: [place] conjunctiva and NL buccal mucosa Neck: Supple, no tenderness Endocrine: No Thyromegaly. Vascular: No JVD or carotid bruit. Lymphatic: No cervical lymphadenopathy. Chest: Bilateral wheezing or rhonchi. Diminished breath sound. Improved compared to admission state. Heart RRR, no extra sound or murmur. Abd: Soft, no tenderness, no rebound and no rigidity. Increase abd girth therefore clinically I could not exclude the possibility of intra abd mass or organomegaly. LE: No cyanosis or clubbing, no varices or edema. Neuro: A A O. Nl speech, comprehension and attention. Nl and symetrical motor and tone examination through out. []] Constitutional Vital Signs, click to edit/add: Last Vital Signs Temp 98.4 F 10/21/25 07:17 Pulse 99 H 10/21/25 08:30 Resp 23 H 10/21/25 08:30 BP 106/60 10/21/25 07:08 Pulse Ox 87 L 10/21/25 09:38 O2 Del Method Nasal Cannula 10/21/25 09:38 O2 Flow Rate 3 10/21/25 09:38 FiO2 40 10/20/25 07:26 Progress Note: A&P Assessment and Plan (1) COPD exacerbation: Plan Acute COPD exacerbation. I suspect based on the recent CAT scan imaging that patient has moderate to advanced emphysematous lung with poor air exchange Acute on chronic hypoxic respiratory failure. Acute on chronic hypercapnic respiratory failure. Less high flow oxygen support. Down to 40 L, 40%. Saturation 94-96%. Acute bronchitis, probable basilar pneumonia. Acute diastolic heart failure with interstitial edema. On diuretic. Patient is 4.7 L negative balance Basilar infiltration, could be edema versus infectious process/pneumonia. Repeat chest x-ray showed improvement in the resolution of bibasilar infiltration. Patient is doing better. He is off high flow oxygen. He is on 3 L. He continues to be tachypneic. Continue albuterol Atrovent Continue Pulmicort. Continue Solu-Medrol. Continue antibiotic. Paroxysmal A-fib. Continue Cardizem and Eliquis Steroid-induced hyperglycemia Start patient on Accu-Chek with sliding scale coverage History of CAD with stenting many years ago. Patient is currently on Eliquis. No clear justification to resume Plavix more than 10 years after stent while being on Eliquis at the same time Change Plavix to aspirin Previous tobacco addiction and increased risk for lung cancer. I recommend patient to have yearly low-dose CAT scan of the chest to screen for lung cancer to be arranged by PCP. Ongoing alcohol consumption. Patient admitted that he drinks about 3 alcoholic liquor beverages a week. Maybe patient is minimizing his consumption. I started patient on thiamine and folic acid to reduce his risk having acute Warnicke encephalopathy. Anemia, no evidence of acute blood loss. Patient will likely require to have anemia workup to be done in the outpatient setting to be handled by PCP in collaboration with other needed outpatient providers. This may include but not limited to EGD, colonoscopy, referral to see hematology and other needed age-appropriate cancer screening. Cachexia, frailty, muscle wasting and atrophy, protein calorie malnutrition Patient will need weight loss and cachexia workup including but not limited to evaluation to rule out underlying malignancy to be handled in the outpatient by PCP. Meanwhile I will start patient on oral protein supplementation. Functional impairment Patient was seen by PT OT. He is recommended to go to SNF for short period of time. Discussed with case management. Arrangement for SNF will be completed. Chronic, subacute medical conditions not listed above, abnormal labs and imaging, incidental findings seen on labs and or imaging. These would need to be addressed. Could be addressed later on or in the outpatient setting by PCP collaboration with other needed outpatient providers when time and condition are appropriate.
[2025-10-21] MEDS: GUAIFENESIN 200 MG/DEXTROMETHORPHAN 20 MG 10 ML UNIT DOSE CUP 15 ML PO ×2 (10:09→21:01)
--- NOTE | 2025-10-21 14:08 | SWNOTE1 ---
ROB met with pt and in room. ROB asked if they had a chance to review the list from Medicare.gov. Pt's did narrow it down to 2 facilties. She attempted to call over the weekend, but nobody was in. ROB offered to provide [facility] and [facility] [place] with her phone number so they can call her and schedule a time. Pt's in agreement. Pt voiced he was feeling alright. Pt is back on vapotherm right now. Pt is agreeable to go skilled, just wants his to visit the facilties first, he stated he does not want to go back to a place like [place]. ROB emailed Luda at the [facility] and Brent at [facility] the phone number of pt's and faxed them the face sheet for pt.
--- NOTE | 2025-10-21 15:42 | SWNOTE1 ---
SW received a message from Suzanne at [facility] and pt's will be touring the [facility] tomorrow.
[2025-10-21] MEDS: DOXYCYCLINE MONOHYDRATE 100 MG CAPSULE PO (20:58)
[2025-10-22] VITALS (64 sets, daily range): BP systolic 83–137; BP diastolic 50–90; PULSE 61–163; TEMP 36.6–36.7; O2SAT 66–97
[2025-10-22] MEDS: METHYLPREDNISOLONE SOD SUCC PF 40 MG/ML VIAL IVP (05:44)
[2025-10-22] MEDS: GUAIFENESIN 200 MG/DEXTROMETHORPHAN 20 MG 10 ML UNIT DOSE CUP 15 ML PO ×3 (05:44→22:33)
[2025-10-22 05:49] LABS: Hematocrit 36.7 % (42.0-54.0); Hemoglobin 10.9 g/dL (14.0-18.0); Mean Corpuscular HGB Conc 29.7 g/dL (29.9-35.2); Mean Corpuscular Hemoglobin 28.2 pg (25.9-34.0); Mean Corpuscular Volume 94.8 fL (80.0-94.0); Platelet Count 338 10^3/uL (150-450); Red Blood Count 3.87 10^6/uL (4.70-6.10); White Blood Count 9.7 10^3/uL (4.0-11.0)
[2025-10-22 06:06] LABS: Anion Gap 5.0; Blood Urea Nitrogen 34.0 mg/dL (7.0-18.0); Calcium 9.0 mg/dL (8.5-10.1); Carbon Dioxide 37.9 mmol/L (21.0-32.0); Chloride 104 mmol/L (98-107); Estimated GFR (African America >60 (>=60 mL/min/1.73m^2); Estimated GFR (Non-African Ame >60 (>=60 mL/min/1.73m^2); Glucose 150 mg/dL (74-106); Potassium 4.9 mmol/L (3.5-5.1); Sodium 142 mmol/L (136-145)
[2025-10-22] MEDS: ASPIRIN 81 MG TABLET.DR PO (08:19)
[2025-10-22] MEDS: THIAMINE MONONITRATE (VIT B1) 100 MG TABLET 200 MG PO (08:19)
[2025-10-22] MEDS: FOLIC ACID 1 MG TABLET PO (08:19)
[2025-10-22] MEDS: APIXABAN 5 MG TABLET PO ×2 (08:19→20:53)
[2025-10-22] MEDS: PANTOPRAZOLE SODIUM 40 MG TABLET.DR PO (08:19)
[2025-10-22] MEDS: ATORVASTATIN CALCIUM 20 MG TABLET PO (08:19)
[2025-10-22] MEDS: DILTIAZEM HCL 120 MG CAP.ER.24H PO (08:19)
[2025-10-22] MEDS: DOXYCYCLINE MONOHYDRATE 100 MG CAPSULE PO ×2 (08:20→20:53)
--- NOTE | 2025-10-22 08:40 | CM.NOTE ---
Rounds made with Dr. Gomez, discussed plan of care with pt. No discharge today, pt will discharge to skilled when medically stable.
--- NOTE | 2025-10-22 09:09 | SWNOTE1 ---
ROB reached out to Katie and Irina at [facility] to see if they reached out to . Katie confirmed Irina called and left voicemail and is waiting asw/asuw tactical air controller back.
[2025-10-22] MEDS: IPRATROPIUM/ALBUTEROL SULFATE 3 ML AMPUL.NEB IH ×3 (09:12→21:07)
[2025-10-22] MEDS: BUDESONIDE 0.5 MG/2 ML AMPULE NEB IH ×2 (09:12→21:07)
--- NOTE | 2025-10-22 09:47 | PM.PN ---
Progress Note: Subjective Subjective Interval history: Uneventful night. He continues to require 3 to 4 L. No chest pain. No abdominal pain. Good appetite. Patient patient's condition Exam Narrative Exam Narrative: [pt is awake and alert. oriented to place, time and person. Mild respiratory distress HEENT: [place] conjunctiva and NL buccal mucosa Neck: Supple, no tenderness Endocrine: No Thyromegaly. Vascular: No JVD or carotid bruit. Lymphatic: No cervical lymphadenopathy. Chest: Bilateral wheezing or rhonchi. Diminished breath sound. Improved compared to admission state. Heart RRR, no extra sound or murmur. Abd: Soft, no tenderness, no rebound and no rigidity. Increase abd girth therefore clinically I could not exclude the possibility of intra abd mass or organomegaly. LE: No cyanosis or clubbing, no varices or edema. Neuro: A A O. Nl speech, comprehension and attention. Nl and symetrical motor and tone examination through out. []] Constitutional Vital Signs, click to edit/add: Last Vital Signs Temp 98.0 F 10/22/25 07:31 Pulse 76 10/22/25 09:12 Resp 16 10/22/25 07:30 BP 137/73 10/22/25 07:10 Pulse Ox 95 10/22/25 09:12 O2 Del Method Nasal Cannula 10/22/25 09:12 O2 Flow Rate 3 10/22/25 09:12 FiO2 50 10/22/25 04:02 Progress Note: Objective Labs Labs: Short CBC 10/22/25 Range/Units 05:09 WBC 9.7 (4.0-11.0) 10^3/uL Hgb 10.9 L (14.0-18.0) g/dL Hct 36.7 L (42.0-54.0) % Plt Count 338 (150-450) 10^3/uL BMP 10/22/25 05:27 Sodium 142 Potassium 4.9 Chloride 104 Carbon Dioxide 37.9 H BUN 34.0 H Creatinine 0.70 Glucose 150 H Calcium 9.0 Progress Note: A&P Assessment and Plan (1) COPD exacerbation: Plan Acute COPD exacerbation. I suspect based on the recent CAT scan imaging that patient has moderate to advanced emphysematous lung with poor air exchange Acute on chronic hypoxic respiratory failure. Patient is on 3 L at home Acute on chronic hypercapnic respiratory failure. Less high flow oxygen support. Off high flow on nasal cannula Acute bronchitis, probable basilar pneumonia. Acute diastolic heart failure with interstitial edema. On diuretic. Patient is 5 L negative balance Basilar infiltration, could be edema versus infectious process/pneumonia. Repeat chest x-ray showed improvement in the resolution of bibasilar infiltration. Patient is doing better. He is off high flow oxygen. He is on 3 L. He continues to be tachypneic. Continue albuterol Atrovent Continue Pulmicort. Continue Solu-Medrol. Continue antibiotic. Continue gentle diuresis Paroxysmal A-fib. Continue Cardizem and Eliquis Steroid-induced hyperglycemia Start patient on Accu-Chek with sliding scale coverage History of CAD with stenting many years ago. Patient is currently on Eliquis. No clear justification to resume Plavix more than 10 years after stent while being on Eliquis at the same time Change Plavix to aspirin Previous tobacco addiction and increased risk for lung cancer. I recommend patient to have yearly low-dose CAT scan of the chest to screen for lung cancer to be arranged by PCP. Ongoing alcohol consumption. Patient admitted that he drinks about 3 alcoholic liquor beverages a week. Maybe patient is minimizing his consumption. I started patient on thiamine and folic acid to reduce his risk having acute Warnicke encephalopathy. Anemia, no evidence of acute blood loss. Patient will likely require to have anemia workup to be done in the outpatient setting to be handled by PCP in collaboration with other needed outpatient providers. This may include but not limited to EGD, colonoscopy, referral to see hematology and other needed age-appropriate cancer screening. Cachexia, frailty, muscle wasting and atrophy, protein calorie malnutrition Patient will need weight loss and cachexia workup including but not limited to evaluation to rule out underlying malignancy to be handled in the outpatient by PCP. Meanwhile I will start patient on oral protein supplementation. Functional impairment Patient was seen by PT OT. He is recommended to go to SNF for short period of time. Discussed with case management. Arrangement for SNF will be completed. Chronic, subacute medical conditions not listed above, abnormal labs and imaging, incidental findings seen on labs and or imaging. These would need to be addressed. Could be addressed later on or in the outpatient setting by PCP collaboration with other needed outpatient providers when time and condition are appropriate.
--- NOTE | 2025-10-22 10:07 | PC.NURSE ---
pt in afib on monitor, hr 130-140's, confirmed with ekg. dr knowles aware
--- NOTE | 2025-10-22 10:08 | ECG_ITS ---
[facility] Test Date: 2025-10-22 Pat Name: BRIAN BARNARD Department: Room: 2221 Gender: Male Teaching Dietitian: : 1950 Requested By: ADEBAYO CARVALHO Order Number: [id number] Reading MD: ROSA SINCLAIR Measurements Intervals [place] Rate: 146 P: -[id number] AK: -[id number] QRS: 71 QRSD: 88 T: 90 QT: 270 QTc: 354 Interpretive Statements 92624 Atrial fibrillation with rapid ventricular response [address] depression, probably digitalis effect 9150 abnormal ECG Compared to ECG 10/19/2025 06:20:00 Sinus bradycardia no longer present Myocardial infarct finding no longer present ST (T wave) deviation still present Electronically Signed On 10-22-2025 15:19:55 EST by ROSA SINCLAIR
[2025-10-22] MEDS: PREDNISONE 20 MG TABLET PO ×2 (10:16→20:53)
[2025-10-22] MEDS: DILTIAZEM HCL 25 MG/5 ML VIAL 10 MG IV (10:16)
[2025-10-22] MEDS: TORSEMIDE 20 MG TABLET PO (10:16)
--- NOTE | 2025-10-22 10:35 | SWNOTE1 ---
SW received a message from pt's nurse and his is touring the [facility] today as well.
[2025-10-22] MEDS: INSULIN ASPART 300 UNIT/3 ML PEN SUBQ ×2 (11:21→15:36)
[2025-10-22] MEDS: DIGOXIN 500 MCG/2 ML AMPUL 250 MCG IV ×2 (11:21→15:34)
--- NOTE | 2025-10-22 12:52 | CM.NOTE ---
2nd Notice of Important Message From Medicare discussed with pt, pt denies questions or concerns.
[2025-10-22] MEDS: DILTIAZEM HCL 60 MG TABLET 30 MG PO ×2 (13:02→20:52)
--- NOTE | 2025-10-22 13:09 | SWNOTE1 ---
SW spoke with pt and in room. Pt's liked both the [facility] and [facility], but she liked the [facility] a little more and felt they were more informative. She would like SW to send updates to [facility] today. They do have a bed available. SW to send updates. ROB informed Suzanne and Brian at [facility] that SW is sending updates and pt would like to go there. CM did ask physician about BIPAP at night once pt goes to [facility] and he would like that. SW to re-send BIPAP setting to [facility] to have them order. Bipap settings, PT/OT, vitals, physician note, labs, and nursing notes sent to [facility].
--- NOTE | 2025-10-22 14:00 | SWNOTE1 ---
[facility] is able to accept once pt is medically stable for discharge.
--- NOTE | 2025-10-22 14:07 | CM.NOTE ---
CM completed [facility] for pending d/c to skilled. Clarified with Dr. Patricia MARIE (nights) at discharge along with settings.
[2025-10-23] VITALS (15 sets, daily range): BP systolic 109–112; BP diastolic 58–71; PULSE 57–91; TEMP 36.4–36.7; O2SAT 90–96
[2025-10-23] MEDS: DILTIAZEM HCL 60 MG TABLET 30 MG PO (04:43)
[2025-10-23] MEDS: GUAIFENESIN 200 MG/DEXTROMETHORPHAN 20 MG 10 ML UNIT DOSE CUP 15 ML PO (04:59)
[2025-10-23] MEDS: APIXABAN 5 MG TABLET PO (08:14)
[2025-10-23] MEDS: PANTOPRAZOLE SODIUM 40 MG TABLET.DR PO (08:14)
[2025-10-23] MEDS: ATORVASTATIN CALCIUM 20 MG TABLET PO (08:14)
[2025-10-23] MEDS: PREDNISONE 20 MG TABLET PO (08:14)
[2025-10-23] MEDS: TORSEMIDE 20 MG TABLET 10 MG PO (08:15)
[2025-10-23] MEDS: DOXYCYCLINE MONOHYDRATE 100 MG CAPSULE PO (08:15)
[2025-10-23] MEDS: DILTIAZEM HCL 180 MG CAP.ER.24H PO (08:15)
[2025-10-23] MEDS: FOLIC ACID 1 MG TABLET PO (08:15)
[2025-10-23] MEDS: ASPIRIN 81 MG TABLET.DR PO (08:15)
[2025-10-23] MEDS: INSULIN ASPART 300 UNIT/3 ML PEN SUBQ (08:17)
[2025-10-23] MEDS: IPRATROPIUM/ALBUTEROL SULFATE 3 ML AMPUL.NEB IH (09:38)
[2025-10-23] MEDS: BUDESONIDE 0.5 MG/2 ML AMPULE NEB IH (09:38)
--- NOTE | 2025-10-23 10:38 | P.DS_ITS ---
DS: Providers Provider Date of admission: 10/17/25 23:23 Primary care physician: ADEBAYO CARVALHO Consults: 10/18/25 Occupational Therapy Eval and Treat Routine Reason for consultation: WEAKNESS Has provider been notified: Yes Physical Therapy Eval and Treat Routine Reason for consultation: WEAKNESS Has provider been notified: Yes DS: Diagnosis Discharge Diagnosis (1) COPD exacerbation: Plan As listed above, below and others that are not listed DS: Summary Hospital Course Hospital Course: Mr. Quezada is a 75-year-old gentleman who came in with shortness of breath and was found to have the following: Acute COPD exacerbation. I suspect based on the recent CAT scan imaging that patient has moderate to advanced emphysematous lung with poor air exchange Acute on chronic hypoxic respiratory failure. Patient is on 3 L at home Acute on chronic hypercapnic respiratory failure. Less high flow oxygen support. Off high flow on nasal cannula Acute bronchitis, probable basilar pneumonia. Acute diastolic heart failure with interstitial edema. On diuretic. Patient is 5 L negative balance Basilar infiltration, could be edema versus infectious process/pneumonia. Repeat chest x-ray showed improvement in the resolution of bibasilar infiltration. Patient had made significant recovery. Off BiPAP and off high flow oxygen on 3 L nasal cannula. He is back to baseline state. Chest x-ray showed resolution of the infiltration. [facility]. My recommendation is to continue to use BiPAP at night 16/8 with O2 to keep saturation between 90 and 94% listed on the discharge document electronically. Paroxysmal A-fib. Continue Cardizem and Eliquis Patient had an episode of paroxysmal A-fib with RVR requiring the use of intravenous Cardizem. Patient converted back to sinus rhythm. Cardizem dose orally was increased up to 180 mg daily. Continue Eliquis. Steroid-induced hyperglycemia Start patient on Accu-Chek with sliding scale coverage History of CAD with stenting many years ago. Patient is currently on Eliquis. No clear justification to resume Plavix more than 10 years after stent while being on Eliquis at the same time specifically that the patient is on Eliquis as well. Avoided triple therapy. Change Plavix to aspirin Continue Eliquis Previous tobacco addiction and increased risk for lung cancer. I recommend patient to have yearly low-dose CAT scan of the chest to screen for lung cancer to be arranged by PCP. Ongoing alcohol consumption. Patient admitted that he drinks about 3 alcoholic liquor beverages a week. Maybe patient is minimizing his consumption. I started patient on thiamine and folic acid to reduce his risk having acute Warnicke encephalopathy. Anemia, no evidence of acute blood loss. Patient will likely require to have anemia workup to be done in the outpatient setting to be handled by PCP in collaboration with other needed outpatient providers. This may include but not limited to EGD, colonoscopy, referral to see hematology and other needed age-appropriate cancer screening. Cachexia, frailty, muscle wasting and atrophy, protein calorie malnutrition Patient will need weight loss and cachexia workup including but not limited to evaluation to rule out underlying malignancy to be handled in the outpatient by PCP. Meanwhile I will start patient on oral protein supplementation. Functional impairment Patient was seen by PT OT. He is recommended to go to SNF for short period of time. Discussed with case management. Patient will be discharged to the longterm facility. Chronic, subacute medical conditions not listed above, abnormal labs and imaging, incidental findings seen on labs and or imaging. These would need to be addressed. Could be addressed later on or in the outpatient setting by PCP collaboration with other needed outpatient providers when time and condition are appropriate. Patient has multiple complex medical issues as listed above and others that are not listed. All appear to be stable. I do not have any clear or strong clinical justification to extend inpatient hospitalization. Patient however will require close and frequent monitoring as well as additional work-up, investigation and therapeutic intervention that could take place from this point on post discharge. That is to prevent relapse, decompensation, rehospitalization and other medical implications. Discharge medications as listed are not final or set in stone. Primary care doctor and other out patient providers will need to titrate and adjust medications as soon as the first post discharge visit based on clinical progression, vitals signs, volume status and other related organs function. I instructed patient to ask her primary care doctor to obtain [facility] record entirely to address abnormalities seen on labs and imaging that I have and have not addressed during this hospitalization, follow-up on pending blood work, imaging and pathology is if available and to follow-up on needed medical care in the outpatient setting. Time Spent with Patient Time attestation: Total time spent providing and/or coordinating discharge services: Exam Constitutional Vital Signs, click to edit/add: Last Vital Signs Temp 98.1 F 10/23/25 07:22 Pulse 91 H 10/23/25 09:57 Resp 20 10/23/25 09:44 BP 109/58 10/23/25 07:18 Pulse Ox 96 10/23/25 09:57 O2 Del Method Nasal Cannula 10/23/25 09:44 O2 Flow Rate 3 10/23/25 09:44 FiO2 50 10/22/25 04:02 DS: Data Data Completed and Pending Labs on day of discharge: Labs from last 24 hours 10/23/25 10/22/25 10/22/25 07:19 15:34 10:59 POC Glucose 149 H 225 H 176 H Preliminary micro results at discharge 10/17/25 18:50 Blood Culture Result 2 - Preliminary Blood - Left Wrist NO GROWTH AT 36-48 HOURS. FINAL TO FOLLOW. 10/17/25 18:42 Blood Culture Result 1 - Preliminary Blood - Right Antecubital NO GROWTH AT 36-48 HOURS. FINAL TO FOLLOW. Discharge Plan Discharge Disposition: Xfer SNF Condition: Fair Discharge Medications: New diltiazem HCl 180 mg Capsule,Extended Release 24hr 180 mg PO QD Qty: 0 0RF aspirin 81 mg Tablet,Delayed Release (Dr/Ec) 81 mg PO QD Qty: 0 0RF doxycycline monohydrate 100 mg Capsule 100 mg PO BID 5 Days Qty: 0 0RF dextromethorphan-guaifenesin 10-100 mg/5 mL Syrup 15 ml PO TID PRN (Reason: Cough) Qty: 237 0RF folic acid 1 mg Tablet 1 mg PO QD Qty: 0 0RF Glucagon Emergency Kit (human) 1 mg Recon Soln 1 mg IV Q15M PRN (Reason: Hypoglycemia) Qty: 0 0RF thiamine mononitrate (vit B1) 100 mg Tablet 100 mg PO DAILY Qty: 0 0RF prednisone 10 mg tablet 10 mg PO .as directed Qty: 0 0RF Rx Instructions: 20 mg twice a day for 5 days then 20 mg daily for 5 days then 10 mg daily insulin aspart U-100 [Novolog FlexPen U-100 Insulin] 100 unit/mL (3 mL) Insulin Pen 3 - 15 unit subcut AC Qty: 0 0RF amoxicillin-pot clavulanate 875-125 mg tablet 1 tab PO BID Qty: 10 0RF budesonide-formoterol [Symbicort] 160-4.5 mcg/actuation HFA aerosol inhaler 2 inh inhalation BID Qty: 10.2 0RF torsemide 10 mg tablet 10 mg PO QD Qty: 0 0RF potassium chloride 10 mEq capsule, extended release 10 meq PO DAILY Qty: 30 0RF Continued ipratropium-albuterol 0.5 mg-3 mg(2.5 mg base)/3 mL solution for nebulization 3 ml INHALATION Q4H PRN (Reason: shortness of breath or wheezing) mirtazapine 30 mg tablet 30 mg PO HS omeprazole 20 mg capsule,delayed release(DR/EC) 20 mg PO .unknown ezetimibe-simvastatin [Vytorin 10-40] 10-40 mg tablet 1 tab PO DAILY atorvastatin 20 mg Tablet 20 mg PO DAILY 30 Days Qty: 30 0RF sennosides-docusate sodium 8.6-50 mg Tablet 1 tab PO QD PRN (Reason: Constipation) 10 Days Qty: 10 0RF Eliquis 5 mg tablet 5 mg PO BID 30 Days Qty: 60 1RF Changed alprazolam 0.25 mg Tablet 0.25 mg PO Q8H PRN (Reason: anxiety) Qty: 14 0RF Discontinued albuterol sulfate 2.5 mg /3 mL (0.083 %) solution for nebulization 2.5 mg inhalation Q6H PRN (Reason: shortness of breath or wheezing) linaclotide 145 mcg capsule 145 mcg PO DAILY acetazolamide 250 mg Tablet 250 mg PO DAILY 3 Days Qty: 3 0RF budesonide 0.5 mg/2 mL Suspension For Nebulization 0.5 mg inhalation RTBID@1100,2300 30 Days Qty: 60 0RF diltiazem HCl 60 mg Tablet 30 mg PO QID 30 Days Qty: 60 0RF guaifenesin [Mucinex] 600 mg Tablet Extended Release 12hr 1,200 mg PO BID 10 Days Qty: 40 0RF Print Language: Danish Activity Restrictions/Additional Instructions: I may not have addressed or treated all of your medical illnesses or the abnormal blood work or imaging studies during this hospitalization. Please ask your primary care provider to obtain [place] records entirely to follow up on all of the abnormal physical, laboratory, and imaging findings that I have not addressed. Please return back to the emergency room or seek medical attention if your symptoms worsen or return. Discharging you from [place] does not mean that your medical care ends here and now. You may still need additional monitoring, work up, investigation, and treatment plan to be handled from this point on by out patient providers including your primary care provider and specialists. For [facility] provider Fall risk Check his blood sugar 3 times a day with meals while on the prednisone 3 to 4 L of oxygen continuously BiPAP 13/07, bleed in oxygen about 3 L to keep saturation between 90 and 94%, when he sleeps at night only takes naps Please start patient on Ensure or boost 1 can/bottle twice a day orally For any medication question, please contact your retail pharmacist or your primary care provider. Thank you. Forms: Portal Instructions
--- NOTE | 2025-10-23 10:41 | CM.NOTE ---
Rounds made with Dr. Gomez, discussed plan of care with pt. Pt will be discharged today to [facility].
--- NOTE | 2025-10-23 11:51 | SWNOTE1 ---
Pt is stable for discharge today. ROB did confirm with Suzanne at the [facility] that they do have a Bipap for him. Shirlene was at the [facility] today and did get the settings set for pt. ROB called and set up trips for transportation and they will be here between 1-1:30. ROB called pt's and updated her with time and Bipap. Pt's is going to [facility] to start paperwork around 1:00 and will bring his bag there as well. ROB notified [facility] and pt's nurse of time. ROB sent dc med rec and dc summary to Suzanne and Brian at [facility]. ROB completed [facility] online as well. ROB took packet to the med/surge floor along with CRF.
--- NOTE | 2025-10-23 12:09 | PC.NURSE ---
report called to teresa at the [facility].
--- NOTE | 2025-10-23 12:51 | PC.NURSE ---
pt dressed with assistance, at bedside. pt belongings packed per . taken to exit via wheelchair and O2. dc'd to trips van
== END 2025-10-23 12:52 | DRG 189 ==
LOC: ER 21:41 → MS 10-18 00:01
PROVIDERS: Physician Assistant; Admitting Provider Internal Medicine; Emergency Provider Emergency Medicine; PCP Internal Medicine; Visit Provider Internal Medicine
DX: J96.21 Acute and chronic respiratory failure with hypoxia (principal); I50.31 Acute diastolic (congestive) heart failure; J18.9 Pneumonia, unspecified organism; R64 Cachexia; E46 Unspecified protein-calorie malnutrition; J43.9 Emphysema, unspecified; J96.22 Acute and chronic respiratory failure with hypercapnia; J20.9 Acute bronchitis, unspecified; Z99.81 Dependence on supplemental oxygen; Z87.891 Personal history of nicotine dependence; I25.10 Atherosclerotic heart disease of native coronary artery without angina pectoris; I48.0 Paroxysmal atrial fibrillation; Z95.5 Presence of coronary angioplasty implant and graft; Z79.01 Long term (current) use of anticoagulants; F10.90 Alcohol use, unspecified, uncomplicated; D64.9 Anemia, unspecified; M62.50 Muscle wasting and atrophy, not elsewhere classified, unspecified site; R73.9 Hyperglycemia, unspecified; T38.0X5A Adverse effect of glucocorticoids and synthetic analogues, initial encounter; R53.81 Other malaise; R91.8 Other nonspecific abnormal finding of lung field; Z68.26 Body mass index [BMI] 26.0-26.9, adult
CPT/HCPCS: 36415; 36600; 71045; 80048; 80053; 82805; 82948; 83605; 83880; 84484; 85007; 85025; 85027; 87040; 87804; 87811; 93005; 94640; 94660; 94761; 94799; 96365; 96375; 97110; 97161; 97165; 97530; 97535; 99285; J0696; J1160; J1938; J2919; J3411; J3475; J7512

== ENCOUNTER 2025-11-19 11:26 | Emergency (ER) | payer MEDICARE, SELFPAY ==
--- OUTSIDE RECORDS SUMMARY | 2024-10-16 07:20 | XMS_ITS ---
Author Organization [facility] in [place] Address [address] [place] [address] Care Team Providers Care Bottle Filler Name Role Phone Barron CARRION, Radames Primary Care Provider Unavailab Josue Vazquez [phone] REASON FOR VISIT 4 mo w/ psa Encounters Encounter Location Date Provider Diagnosis Urology [facility] [address] [address] 10/16/2024 Josue Castro Plan Of Treatment No Information Progress Notes * Tunde BARNARD RDOB:1950 (75 yo M)Acc No.[id number]:10/16/2024 UNLOCKED PROGRESS NOTE Patient:?Tunde BARNARD :?Josue Castro MDDOB:1950???Age:74 Y ???Sex:MaleDate:4Phone:[phone]:[address] [place], [place] [address]Pcp:Radames Mart MD Subjective: * Chief Complaints: * 1 . 4 mo w/ psa. * Medical History: Objective: * Vitals: Assessment: Plan: * Treatment: * * Electronic signature of Josue Castro MD, [id number] on 11/19/2025 at 11:38 AM ESTSign off status: PendingVisit Status:?R/S (Rescheduled) * Provider: Olimpia Castro MD Date: 12/16/2023 Generated for Printing/Faxing/eTransmitting on:?11/19/2025 11:38 AM EST
--- OUTSIDE RECORDS SUMMARY | 2024-11-13 08:30 | XMS_ITS ---
Author Organization The [facility] in [place] Address [address] [place] [address] Care Team Providers Care Medical Logistics Specialist Name Role Phone Barron CARRION, Radames Primary Care Provider Unavailab Josue Vazquez [phone] REASON FOR VISIT 4 mo w/ psa Encounters Encounter Location Date Provider Diagnosis [facility] [address] [address] 11/13/2024 Josue Castro Plan Of Treatment No Information Progress Notes * Tunde BARNARD RDOB:1950 (75 yo M)Acc No.[id number]:11/13/2024 UNLOCKED PROGRESS NOTE Patient:?Tunde BARNARD :?Josue Castro MDDOB:1950???Age:74 Y ???Sex:MaleDate:4Phone:[phone]:[address] [place], [place] [phone]:Radames Mart MD Subjective: * Chief Complaints: * 1 . 4 mo w/ psa. * Medical History: Objective: * Vitals: Assessment: Plan: * Treatment: * * Electronic signature of Josue Castro MD, [id number] on 11/19/2025 at 11:38 AM ESTSign off status: PendingVisit Status:?R/S (Rescheduled) * Provider: Olimpia Castro MD Date: 1 01/14/2024 Generated for Printing/Faxing/eTransmitting on:?11/19/2025 11:38 AM EST
--- OUTSIDE RECORDS SUMMARY | 2025-01-03 09:10 | XMS_ITS ---
Author Organization The [facility] in [place] Address [address] [place] [address] Care Team Providers Care Hammer Smith Name Role Phone Barron CARRION, Radames Primary Care Provider Unavailab Josue Vazquez [facility] [phone] REASON FOR VISIT 4 mo w/ psa - NOMS Encounters Encounter Location Date Provider Diagnosis U[facility] [address] [address] 01/03/2025 Josue Castro Plan Of Treatment No Information Progress Notes * Tunde BARNARD RDOB:1950 (75 yo M)Acc No.[id number]:01/03/2025 UNLOCKED PROGRESS NOTE Patient:?Tunde BARNARD :?BUTCH AtkinsOB:1950???Age:74 Y ???Sex:MaleDate:01/03/2025Phone:[phone]:[address] [place], [place] [address]Pcp:Radames Mart MD Subjective: * Chief Complaints: * 1 . 4 mo w/ psa - NOMS. * Medical History: Objective: * Vitals: Assessment: Plan: * Treatment: * * Electronic signature of Josue Castro MD, [id number] on 11/19/2025 at 11:38 AM ESTSign off status: PendingVisit Status:?R/S (Rescheduled) * Provider: Olimpia Castro MD Date: 0 01/03/2025 Generated for Printing/Faxing/eTransmitting on:?11/19/2025 11:38 AM EST
--- OUTSIDE RECORDS SUMMARY | 2025-02-12 07:30 | XMS_ITS ---
Author Organization The [facility] in [place] Address [address] [place] [address] Care Team Providers Care Vehicle Delivery Worker Name Role Phone Barron CARRION, Radames Primary Care Provider Unavailab Josue Vazquez [phone] REASON FOR VISIT 4 mo w/ psa - NOMS, verbally reminded PT of PSA 3/13 Encounters Encounter Location Date Provider Diagnosis [facility] [place] [address] [place] [address] 02/12/2025 Josue Castro Plan Of Treatment No Information Progress Notes * Tunde BARNARD RDOB:1950 (75 yo M)Acc No.[id number]:02/12/2025 UNLOCKED PROGRESS NOTE Patient:?Tunde BARNARD :?Josue Castro, MDDOB:1950???Age:74 Y ???Sex:MaleDate:02/12/2025Phone:[phone]:[address] [place], [place] [address]Pcp:Radames Mart MD Subjective: * Chief Complaints: * 1 . 4 mo w/ psa - NOMS. 2. verbally reminded PT of PSA 3/13. * Medical History: Objective: * Vitals: Assessment: Plan: * Treatment: * * Electronic signature of Josue Castro MD, [id number] on 11/19/2025 at 11:38 AM ESTSign off status: PendingVisit Status:?R/S (Rescheduled) * Provider: Olimpia Castro MD Date: 0 02/12/2025 Generated for Printing/Faxing/eTransmitting on:?11/19/2025 11:38 AM EST
--- OUTSIDE RECORDS SUMMARY | 2025-03-28 09:10 | XMS_ITS ---
Author Organization The [facility] in [place] Address [address] [place] [address] Care Team Providers Care Assisted Living Executive Director Name Role Phone Barron CARRION, Radames Primary Care Provider Unavailab Josue Vazquez [phone] REASON FOR VISIT 4 mo w/ psa - NOMS, verbally reminded PT of PSA 3/13 Encounters Encounter Location Date Provider Diagnosis Urology [facility] [place] [address] [place] [address] 03/28/2025 Josue Castro Plan Of Treatment No Information Progress Notes * Tunde BARNARD RDOB:1950 (75 yo M)Acc No.[id number]:03/28/2025 UNLOCKED PROGRESS NOTE Patient:?Tunde BARNARD :?Josue Castro, MDDOB:1950???Age:74 Y ???Sex:MaleDate:03/28/2025Phone:[phone]:[address] [place], [place] [address]Pcp:Radames Mart MD Subjective: * Chief Complaints: * 1 . 4 mo w/ psa - NOMS. 2. verbally reminded PT of PSA 3/13. * Medical History: Objective: * Vitals: Assessment: Plan: * Treatment: * * Electronic signature of Josue Castro MD, [id number] on 11/19/2025 at 11:37 AM ESTSign off status: PendingVisit Status:?R/S (Rescheduled) * Provider: Olimpia Castro MD Date: 0 03/28/2025 Generated for Printing/Faxing/eTransmitting on:?11/19/2025 11:37 AM EST
--- OUTSIDE RECORDS SUMMARY | 2025-05-07 08:10 | XMS_ITS ---
Author Organization The [facility] in [place] Address [address] [place] [address] Care Team Providers Care Pilot Plant Research Technician Name Role Phone Barron CARRION, Radames Primary Care Provider Unavailab Josue Vazquez [phone] REASON FOR VISIT 4 mo w/ psa - NOMS, verbally reminded PT of PSA 3/13 Encounters Encounter Location Date Provider Diagnosis Urology [facility] [place] [address] [place] [address] 05/07/2025 Josue Castro Plan Of Treatment No Information Progress Notes * Tunde BARNARD RDOB:1950 (75 yo M)Acc No.[id number]:05/07/2025 UNLOCKED PROGRESS NOTE Patient:?Tunde BARNARD :?Josue Castro, MDDOB:1950???Age:74 Y ???Sex:MaleDate:05/07/2025Phone:[phone]:[address] [place], [place] [address]Pcp:Radames Mart MD Subjective: * Chief Complaints: * 1 . 4 mo w/ psa - NOMS. 2. verbally reminded PT of PSA 3/13. * Medical History: Objective: * Vitals: Assessment: Plan: * Treatment: * * Electronic signature of Josue Castro MD, [id number] on 11/19/2025 at 11:37 AM ESTSign off status: PendingVisit Status:?R/S (Rescheduled) * Provider: Olimpia Castro MD Date: 0 05/07/2025 Generated for Printing/Faxing/eTransmitting on:?11/19/2025 11:37 AM EST
--- OUTSIDE RECORDS SUMMARY | 2025-07-16 08:20 | XMS_ITS ---
Author Organization The [facility] in [place] Address [address] [place] [address] Care Team Providers Care Baggagemaster Name Role Phone Barron CARRION, Radames Primary Care Provider Unavailab Josue Vazquez [phone] REASON FOR VISIT 4 mo w/ psa - NOMS, verbally reminded PT of PSA 3/13 Encounters Encounter Location Date Provider Diagnosis Urology [facility] [place] [address] [place] [address] 07/16/2025 Josue Castro Plan Of Treatment No Information Progress Notes * Tunde BARNARD RDOB:1950 (75 yo M)Acc No.[id number]:07/16/2025 UNLOCKED PROGRESS NOTE Patient:?Tunde BARNARD :?Josue Castro, MDDOB:1950???Age:74 Y ???Sex:MaleDate:07/16/2025Phone:[phone]:[address] [place], [place] [address]Pcp:Radames Mart MD Subjective: * Chief Complaints: * 1 . 4 mo w/ psa - NOMS. 2. verbally reminded PT of PSA 3/13. * Medical History: Objective: * Vitals: Assessment: Plan: * Treatment: * * Electronic signature of Josue Castro MD, [id number] on 11/19/2025 at 11:38 AM ESTSign off status: PendingVisit Status:?CANC (Cancelled) * Provider: Olimpia Castro MD Date: 0 07/16/2025 Generated for Printing/Faxing/eTransmitting on:?11/19/2025 11:38 AM EST
[2025-11-19] VITALS (20 sets, daily range): BP systolic 101–130; BP diastolic 65–94; PULSE 81–120; RESP 16; TEMP 36.4; O2SAT 85–99
--- NOTE | 2025-11-19 11:38 | XR_ITS ---
The [address] [address] Patient Name: BRIAN BARNARD MRN: [id number] date: 1950 Sex: M Assigned Patient Location: ED.MAIN Current Patient Location: ED.MAIN Accession/Order Number: [id number] Exam Date: 11/19/2025 11:40 Report Date: 11/19/2025 11:55 At the request of: JUSTINE CALDERON MD Procedure: XR chest 1V PORTABLE AP ERECT CHEST 1124 hours CLINICAL HISTORY: Increasing shortness of breath COMPARISON: None The cardiac and mediastinal contours are similar. There is no vascular congestion. There is minimal atelectasis or scarring. No developing consolidation is noted. There is no effusion or pneumothorax. The osseous structures are intact. XR/XR chest 1V IMPRESSION: MINOR CHRONIC CHANGES. NO ACUTE FINDINGS Impression dictated by: Irina Casas M.D. 11/19/2025 11:55 AM Dictation Location: [place] [address] Electronically authenticated by: [id number] Date: 11/19/2025 11:55
--- OUTSIDE RECORDS SUMMARY | 2025-11-19 11:38 | XMS_ITS | Clinical Summary ---
Author Organization [facility] tem Address [id number] [address] [place] [address] Care Team Providers Care Geological Survey Field Assistant Name Role Phone Unavailable Primary Care Provider Unavailabl e Social History Tobacco UseTypesPacks/DayYears UsedDateSmoking Tobacco: Never AssessedChildcare AnswerDate TypvkizrVuomxzmjdAendpfk71/12/2019EmploymentAnswerDate Recorded EdacnrtiynXjtptvx24/12/2019Purpose - LifeAnswerDate RecordedPurpose and direction in oirbUebffwi69/11/2021ex and Gender InformationValueDate Recorded Sex Assigned at BirthNot on fileLegal WfoWugm8807/03/2015 12:03 PM EDTGender IdentityNot on fileSexual OrientationNot on file Last Filed Vital Signs Vital SignReadingTime TakenCommentsBlood Pressure--Pulse--Temperature-- Respiratory Rate--Oxygen Saturation--Inhaled Oxygen Concentration--Lxyfyh31.3 kg (155 lb)03/10/2022 1:00 AM EDTHeight--Body Mass Index-- Plan of Treatment Health MaintenanceDue DateLast DoneCommentsDepression Szqguqjwx77/25/1964Tobacco Thwiinbnn81/25/1964Adult BMI Twytsitsl70/25/1970DTaP,Tdap and Td Vaccines (1 - Tdap)1971Zoster (Shingles) Vaccine (1 of 2)2002Fall Risk Screening 2017Influenza Ugwgcdc27/01/570335/, 10/31/2019, 10/31/2019, Additional history existsRSV ( or age 60+ yrs) (1 - 1-dose 75+ series) 2027 Medical Devices Not on file Insurance
--- OUTSIDE RECORDS SUMMARY | 2025-11-19 11:38 | XMS_ITS | Clinical Summary ---
Author Organization [facility] Address [address] [place] [address] Care Team Providers Care Workforce Analyst Name Role Phone Radames Mart MD Unavailable Radames Mart MD Primary Care Provider [phone] Allergies Active AllergyReactionsCriticalityNoted DateCommentsDust Mite Nwwymov0209/30/2025 Medications MedicationSigDispense QuantityRefillsLast FilledStart DateEnd DateStatus clopidogrel [...] tablet Take 2 mg by mouth at dahpcis20/08/2024Active ipratropium-albuterol (Duo-Neb) 0.5-2.5 mg/3 mL nebulizer solution [...] tablet Take 120 mg by mouth Daily.07/17/2025tive Copiudb-Wmidjmqxwkt-Uurwxovwkk (Breztri Aerosphere) 160-9-4.8 MCG/ACT aerosol Indications:Chronic obstructive pulmonary disease, unspecified COPD type (HCC) Inhale 2 puffs in the morning and 2 puffs before bedtime.5Active ALPRAZolam (Xanax) 0.25 MG tablet Indications:AnxietyTake 1 tablet (0.25 mg) by mouth Daily as needed for anxiety 30 tablet 09/30/2025tive pantoprazole (ProtoNix) 40 MG EC tablet Indications:Gastroesophageal reflux disease without esophagitisTake 1 tablet (40 mg) by mouth in the morning. Do not crush, chew, or split. 90 tablet 5Active Active Problems ProblemNoted DateDiagnosed DateChronic post-traumatic stress disorder (PTSD) after wdfmuh0409/30/2025 Overview (09/30/2025): Mar 18, 2025 Entered By: BHARAT CROWDER Comment: 50% Major depressive disorder, recurrent, svculzkw64/03/6449Luzkfcer60/03/2025 Paroxysmal atrial rsxgmrpoaapd17/03/2025hronic respiratory nsdesdt3009/30/2025 Exposure to potentially hazardous ebiwbptgj33/13/2025ge-related nuclear cataract, avrvnjbcy14/02/1172Zbxzhubzodhuov27/02/1733Ztzdjvd22/19/2023 Centrilobular uqynkzbdr36/19/2023hronic obstructive pulmonary rpckvsl6306/15/2023 Qpqbvziwgrfk28/19/2023oronary ebyyvmnjaxexzhy69/19/2023Elevated PSA06/15/2023 GERD (gastroesophageal reflux disease)06/15/2023Lung vssmao9206/15/2023Malignant tumor of sysidaxf17/19/2023Nocturnal leg jnmfpe1406/15/2023Oxygen dependent 06/15/2023eripheral vascular dcjdpik0806/15/2023ure hypercholesterolemia 06/15/2023History of colonic hfktnq272Cramp in lower leg associated with rest06/27/2018 Encounters DateTypeDepartmentCare NtbjXxrhhbgywwv13/17/2025Patient Outreach [facility] [address] [place] [address] Michela Palmer, FOOD AND NUTRITION SERVICES ASSISTANT 11/05/2025Patient Outreach [facility] [address] [place] [address] Michela Palmer, FOOD AND NUTRITION SERVICES ASSISTANT 10/28/2025bstract [facility] [address] [place] [place] [address] Radames Mart MD 10/22/2025Patient Outreach [facility] [address] [place] [address] Michela Palmer, FOOD AND NUTRITION SERVICES ASSISTANT 10/17/2025linisync Result Encounter [facility] External Department Unsolicited Provider, Generic External Data 10/16/2025Telephone [facility] [address] [place] [place] [address] Radames Mart MD request for home laydmf7310/11/2025Patient Outreach [facility] [address] [place] [address] Michela Palmer, FOOD AND NUTRITION SERVICES ASSISTANT 10/03/2025bstract [facility] [address] [place] [place] [address] Radames Mart MD 10/01/2025bstract [facility] [address] [place] [place] [address] Radames Mart MD 09/30/2025 11:00 AM ESTOffice Visit [facility] [address] [place] [place] [address] Irina Tillman PA Paroxysmal atrial fibrillation (HCC) (Primary Dx); Atherosclerosis of poarch coronary artery of poarch heart without angina pectoris; Centrilobular emphysema (HCC); Acute respiratory failure with hypoxia (HCC); Chronic obstructive pulmonary disease, unspecified COPD type (HCC); Oxygen dependent; Anxiety; Gastroesophageal reflux disease without esophagitis; Chronic respiratory failure with hypoxia (HCC); Major depressive disorder, recurrent, moderate (HCC); Chronic idiopathic xgmwxrmafnez08/03/2025amboo flowsheet [facility] [address] [place] [place] [address] Irina Tillman PA 09/30/20252709Wopvrl28/31/2025Patient Outreach [facility] [address] [place] [address] Michela Palmer LPN 09/27/2025Patient Outreach [facility] [address] [place] [address] Michela Palmer, FOOD AND NUTRITION SERVICES ASSISTANT 09/19/2025Patient Outreach [facility] [place] [address] [place] [address] Michela Palmer, FOOD AND NUTRITION SERVICES ASSISTANT 09/06/2025linisync Result Encounter [facility] External Department Unsolicited Provider, Generic External Data from Last 3 Months Immunizations ImmunizationAdministration DatesNext DueInfluenza, High Dose Seasonal, Preservative Free09/20/2020,10/31/2019,09/29/2017Influenza, High-dose Seasonal, Quadrivalent, Preservative Free02/03/2024,09/20/2020,10/31/2019Influenza, Seasonal, Quadrivalent, Gcuqkfbjwc79/22/2022,02/12/2022Influenza, Unspecified 09/06/2015,08/28/2014,11/08/2013Influenza, injectable, xuxktabbnoug79/18/2016 Influenza, injectable, quadrivalent, preservative free09/14/2016Influenza, trivalent, salfabndrz37/01/2025Pfizer Purple Cap SARS-CoV-2 Vaccination 02/02/2022,01/29/2021,1Pneumococcal Conjugate PCV Pneumococcal Polysaccharide HKDJ2006,05/31/2019,10/28/2012Tdap04 Zoster, Qzdbhpnwyut59/29/2020,01/28/2020 Social History Tobacco UseTypesPacks/DayYears UsedDateSmoking Tobacco: FormerCigarettes Smokeless Tobacco: Never Tobacco Cessation:Counseling Given: Not Answered Alcohol UseStandard Drinks/WeekCommentsYes0 (1 standard drink = 0.6 oz pure alcohol)caffeine 1-2 cups per dayPHQ-2AnswerDate RecordedPatient Health Questionnaire-2 Mjifp34311/30/2024Sex and Gender InformationValueDate RecordedSex Assigned at BirthNot on fileLegal YfqFmae1102/09/2023 7:16 PM EDTGender Identity Not on fileSexual OrientationNot on file Last Filed Vital Signs Vital SignReadingTime TakenCommentsBlood Mjnboyxi567/6211 11:19 AM EST Atwke279009/30/2025 11:19 AM KGIAephqxmjkbc16.4 ??C (99.3 ??F)02/07/2025 1:14 PM EDTRespiratory Cppm759611/30/2024 11:19 AM ESTOxygen Smoafdvntr65%09/30/2025 11:19 AM ESTInhaled Oxygen Concentration--Xhwvno96.5 kg (184 lb)09/30/2025 11:19 AM SETRcmlme018.8 cm (5' 10 )09/30/2025 11:19 AM ESTBody Mass Index26.411 11:19 AM EST Plan of Treatment Health MaintenanceDue DateLast DoneCommentsCT Rzmzpxipfdii1952FIT-DNA 1950FIT1950FOBT1950 2823Cpubrgwmyhihl1952olonoscopy /05/2022, 10/13/2015Colorectal Cancer Lhwbjuwsc66/07/2032 Pneumococcal Vaccine: 65+ BxxicVompwhtff64/08/2024, 01/28/2020, 05/31/2019, Additional history existsInfluenza QxsjowyIhxuvtaxc58/01/2025, 02/03/2024, 10/19/2022, Additional history exists Procedures Procedure NamePriorityDate/TimeAssociated DiagnosisCommentsBLOOD CULTURE 2 Bqiltxv57/ 6:50 PM EST BLOOD CULTURE 1Zsatkdd65/20/2025 6:42 PM EST BLOOD CULTURE 3Wwlctfa82/10/2025 11:10 PM EDT BLOOD CULTURE 6Pvsqohv48/10/2025 10:14 PM EDT HBLVBPFHXFNCwjihck28/07/2022 12:00 PM EDT Personal history of colonic polyps Hemorrhage of anus and rectum from Last 3 Months or Most Recently Relevant to Health Maintenance Results * BLOOD CULTURE 2 (10/17/2025 6:50 PM EST) Only the most recent of2 resultswithin the time period is included. ComponentValueRef RangeTest MethodAnalysis TimePerformed AtPathologist Signature BLOOD CULTURE 2 ??Blood Culture 2 NG5D NO GROWTH AT 5 DAYS.^NO GROWTH AT 5 DAYS. TBHSpecimen (Source)Anatomical Location / LateralityCollection Method / Volume Collection TimeReceived Time10/17/2025 6:50 PM EST10/17/2025 7:03 PM EST Narrative [facility] - 10/23/2025 3:49 PM EST Authorizing ProviderResult TypeResult StatusGeneric External Data ProviderLAB BLOOD ORDERABLESFinal ResultPerforming OrganizationAddressty/State/ZIP Code Phone Number [facility] * BLOOD CULTURE 1 (10/17/2025 6:42 PM EST) Only the most recent of2 resultswithin the time period is included. ComponentValueRef RangeTest MethodAnalysis TimePerformed AtPathologist Signature BLOOD CULTURE 1 ??Blood Culture 1 NG5D NO GROWTH AT 5 DAYS.^NO GROWTH AT 5 DAYS. TBHSpecimen (Source)Anatomical Location / LateralityCollection Method / Volume Collection TimeReceived Time10/17/2025 6:42 PM EST10/17/2025 7:03 PM EST Narrative [facility] - 10/23/2025 3:49 PM EST Authorizing ProviderResult TypeResult StatusGeneric External Data ProviderLAB BLOOD ORDERABLESFinal ResultPerforming OrganizationAddressCity/State/ZIP Code Phone Number [facility] * Colonoscopy (03/04/2022 12:00 PM EDT)Anatomical RegionLateralityModality EndoscopySpecimen (Source)Anatomical Location / LateralityCollection Method / VolumeCollection TimeReceived Time03/04/2022 12:00 PM EDT Narrative 03/04/2022 12:00 PM EDT PERFORMED AT [facility] LOCATION:[id number] Procedure Note CONVERSION, GENERIC - 06/08/2023 PERFORMED AT [facility] LOCATION:[id number] Authorizing ProviderResult TypeResult StatusIsh Kinsey MDENDOSCOPY PROCEDURE ORDERABLESFinal Result from Last 3 Months or Most Recently Relevant to Health Maintenance Insurance Care Teams Team MemberRelationshipSpecialtyStart DateEnd Radames Mart MD [address] [facility] [address] [place] [address] PCP - ACO Reach04/21/23 Radames Mart MD [address] [address] PCP - GeneralInternal Medicine06/16/23
--- OUTSIDE RECORDS SUMMARY | 2025-11-19 11:38 | XMS_ITS | Encounter Summary ---
Author Organization [facility] Address [address] [place] [address] Care Team Providers Care Artillery Specialist Name Role Phone Radames Mart MD Unavailable [phone] Radames Mart MD Primary Care Provider [phone] Encounter Details DateTypeDepartmentCare Team (Latest Contact Info)Czcemyesazw59/17/2025Patient Outreach [facility] [address] [place] [address] Michela Palmer LPN Social History Tobacco UseTypesPacks/DayYears UsedDateSmoking Tobacco: FormerCigarettes Smokeless Tobacco: NeverAlcohol UseStandard Drinks/WeekCommentsYes0 (1 standard drink = 0.6 oz pure alcohol)caffeine 1-2 cups per dayPHQ-2AnswerDate Recorded Patient Health Questionnaire-2 Ohzjb49811/30/2024Sex and Gender InformationValue Date RecordedSex Assigned at BirthNot on fileLegal TtnYpyq1502/09/2023 7:16 PM EDT Gender IdentityNot on fileSexual OrientationNot on filedocumented as of this encounter Progress Notes * Michela Palmer LPN - 11/13/2025 8:38 AM EST <November 13, 2025, 08:42 - Michela Palmer LPN> Called pt Xenia and she states that he is still over at [facility] for therapy . He has his ups anddowns. His oxygen saturations are getting better. Nasal congestion Is better. He is on steroids hisblood sugars are a little elevated. He is having some trouble with constipation and impaction he has had 2 times that he has had to be disimpacted. The dr put him on Linzess. He is using his walker with therapy. No dc date. documented in this encounter Plan of Treatment Not on file documented as of this encounter Visit Diagnoses Not on filedocumented in this encounter Care Teams Team MemberRelationshipSpecialtyStart DateEnd Date Radames Mart MD [address] [facility] [address] [place] [address] PCP - ACO Reach04/21/23 Radames Mart MD [address] [facility] [address] [place] [address] PCP - GeneralInternal Medicine06/16/23documented as of this encounter
--- OUTSIDE RECORDS SUMMARY | 2025-11-19 11:38 | XMS_ITS | Encounter Summary ---
Author Organization [facility] Address [address] [place] [address] Care Team Providers Care Senior Cost Accountant Name Role Phone Radames Mart MD Unavailable [phone] Radames Mart MD Primary Care Provider [phone] Encounter Details DateTypeDepartmentCare Team (Latest Contact Info)Dehisucaman28/09/2025Patient Outreach [facility] [address] [place] [place] [address] Michela Palmer LPN Social History Tobacco UseTypesPacks/DayYears UsedDateSmoking Tobacco: FormerCigarettes Smokeless Tobacco: NeverAlcohol UseStandard Drinks/WeekCommentsYes0 (1 standard drink = 0.6 oz pure alcohol)caffeine 1-2 cups per dayPHQ-2AnswerDate Recorded Patient Health Questionnaire-2 Mgpff40211/30/2024Sex and Gender InformationValue Date RecordedSex Assigned at BirthNot on fileLegal XzyStto0602/09/2023 7:16 PM EDT Gender IdentityNot on fileSexual OrientationNot on filedocumented as of this encounter Progress Notes * Michela Palmer LPN - 11/05/2025 11:50 AM EST <November 05, 2025, 11:51 - Michela Palmer LPN> Called [place] at [facility] and spoke with the nurse and she states that pt is not feeling too well today his oxygen sats are low and he is having nasal congestion coughing dr is increasing his predinsone giving him mucinex and antibiotic is being started. He is up using his walker and participatingas much as he can right now. No dc date documented in this encounter Plan of Treatment Not on file documented as of this encounter Visit Diagnoses Not on filedocumented in this encounter Care Teams Team MemberRelationshipSpecialtyStart DateEnd Date Radames Mart MD [address] [facility] [address] [place] [address] PCP - ACO Reach04/21/23 Radaems Mart MD [address] [facility] [address] [place] [address] PCP - GeneralInternal Medicine06/16/23documented as of this encounter
--- OUTSIDE RECORDS SUMMARY | 2025-11-19 11:38 | XMS_ITS | Clinical Summary ---
Author Organization [facility] Address [address] [facility], [address] [place] [address] Care Team Providers Care Crinkling Machine Operator Name Role Phone Radames Mart MD Primary Care Provider [phone] Allergies No known active allergies Medications MedicationSigDispense [...] InformationValueDate RecordedSex Assigned at BirthNot on fileLegal AnxTpfi8701/07/2013 6:40 PM EST Gender IdentityNot on fileSexual OrientationNot on file Last Filed Vital Signs Vital SignReadingTime TakenCommentsBlood Dmrddcoc009/8906 12:15 PM EDT Gunro6644 12:15 PM XJPIvqoicsoruu70.8 ??C (98.2 ??F)05/03/2022 12:15 PM EDTRespiratory Egew1138 12:15 PM EDTOxygen Mzgunpopne36%05/03/2022 12:15 PM EDTInhaled Oxygen Concentration--Cxqxak54.6 kg (160 lb)05/03/2022 10:06 AM ONQTpgzsu593.8 cm (5' 10 )05/03/2022 10:06 AM EDTBody Mass Index22.9605/03/2022 10:06 AM EDT Plan of Treatment Health MaintenanceDue DateLast BxdsOnlzyyqnGlpctb73/25/1962Depression Screen 1964Hepatitis C titlrr7907/22/1970DTaP/Tdap/Td vaccine (1 - Tdap)1971 Rzwnmyqxcpb55/25/1997Colorectal Cancer Gbkcbz4307/22/1997FIT/FOBT: Average risk 1997Fecal-DNA (Cologuard): Average risk1997Sigmoidoscopy/CT ntgkqbsonenz93/25/1997Shingles vaccine (1 of 2)2002AAA ngrdww2707/22/2017 Pneumococcal 50+ years Vaccine (2 of 2 [...] Team MemberRelationshipSpecialtyStart DateEnd Radames Mart MD [address] [facility] [address] [place] [address] PCP - GeneralInternal Medicine04/23/22
--- OUTSIDE RECORDS SUMMARY | 2025-11-19 11:38 | XMS_ITS | Patient Health Record ---
Author Organization [facility] Address [address] [place] [address] [address] [place] [address] Care Team Providers Care Line Construction Engineer Name Role Phone KAI JOSE Unavailable [phone] RAMON DOS SANTOS Unavailable [phone] BHARAT JOSE ANTONIO Unavailable [phone] Allergies No Known Allergies Reason For Referral No Information Problems Problem Type SNOMED Code ICD Code Onset Dates Problem Status W/U Status Risk Notes Problem Chronic obstructive pulmonary disease (46556314) Chronic obstructive pulmonary disease, unspecified (J44.9) ActiveconfirmedProblemChronic respiratory failure (30138474)Chronic respiratory failure with hypoxia (J96.11)ActiveconfirmedProblemChronic respiratory failure (36405387)Chronic respiratory failure with hypercapnia (J96.12)Activeconfirmed ProblemDependence on supplemental oxygen (466627458087)Dependence on supplemental oxygen (Z99.81)Activeconfirmed Encounters Encounter Location Date Provider Diagnosis [address] [place] [address] 09/19/2025 JOSE ANTONIO NICHOLSON Chronic respiratory failure with hypoxia J96.11 ; Chronic respiratory failure with hypercapnia J96.12 ; Dependence on supplemental oxygen Z99.81 and Chronic obstructive pulmonary disease, unspecified J44.[address] [place] [address] 09/22/2025 JOSE QUINN Chronic respiratory failure with hypoxia J96.11 ; Chronic respiratory failure with hypercapnia J96.12 ; Dependence on supplemental oxygen Z99.81 and Chronic obstructive pulmonary disease, unspecified J44.[address] [place] [address] 09/24/2025 RAMON DOS SANTOS Chronic respiratory failure [...] Date Medicare of [place] [address] [place] [address] [id number] Jeffy Quezada - patient is the [facility] SupplementalPO [address] [place] [id number], DannySelf - patient is the insured Medical (General) History Medical History History ICD Code COPD, malignancy, PNA, depre ssion, emphysema, CAD, O2 dependence, malnutrition, EtOH use, acute on chronic hypoxic and hypercapnic respiratory failure, anemia, and HTN Surgical History Surgery Date(Month/Year) Records reviewed Hospitalization History Reason Date(Month/Year) Records reviewed
--- NOTE | 2025-11-19 11:39 | ECG_ITS ---
[facility] Test Date: 2025-11-19 Pat Name: RBIAN BARNARD Department: Room: - Gender: Male Green Chain Off Bearer: : 1950 Requested By: ADEBAYO CARVALHO Order Number: [id number] Noemi MD: JUSTIN NASH M.D. Measurements Intervals [place] Rate: 100 P: 70 TN: 158 QRS: 61 QRSD: 90 T: 79 QT: 316 QTc: 373 Interpretive Statements 1120 Sinus tachycardia 1470 with occasional supraventricular premature complexes 0102 ARTIFACT PRESENT 9140 abnormal rhythm ECG Compared to ECG 10/22/2025 10:04:27 Atrial fibrillation no longer present ST (T wave) deviation no longer present Electronically Signed On 11-20-2025 11:37:15 EST by JUSTIN NASH M.D.
--- OUTSIDE RECORDS SUMMARY | 2025-11-19 11:39 | XMS_ITS | Clinical Summary ---
Author Organization [facility] Address [address] [place] [address] Care Team Providers Care Analytical Strategist Name Role Phone Radames Mart MD Primary Care Provider [phone] Medications MedicationSigDispense QuantityRefillsLast FilledStart DateEnd DateStatus dabigatran etexilate (Pradaxa) 150 mg capsule Indications:Paroxysmal atrial fibrillation (CMS/HCC)Take 1 capsule (150 mg) by mouth two times daily. Do not crush or chew. 180 capsule 5Active Active Problems ProblemNoted DateDiagnosed DateChronic post-traumatic stress disorder (PTSD) after nsuias5109/30/2025 Overview (09/30/2025): Mar 18, 2025 Entered By: BHARAT CROWDER Comment: 50% Chronic respiratory qkokoco5709/30/20254366Zqiibjrb02/03/2025Major depressive disorder, recurrent, qtboyffj33/03/2025Paroxysmal atrial cmefvcgxkdoz96/03/2025 Exposure to potentially hazardous lastyuqqq54/13/2025ge-related nuclear cataract, /02/5085Wdgdtoktozlagq30/02/6882Sjzszyt43/19/2023 Centrilobular zlzzvnuih35/19/2023hronic obstructive pulmonary ystwocv6606/15/2023 Odsrvpwcfdod29/19/2023oronary uvjkqjezlelqdzz13/19/2023Elevated PSA06/15/2023 GERD (gastroesophageal reflux disease)06/15/2023Lung lvdyzy7006/15/2023Malignant tumor of ocshlqpf93/19/2023Nocturnal leg rgdzne7506/15/2023Oxygen dependent 06/15/2023eripheral vascular /19/2023Pure hypercholesterolemia 06/15/2023History of colonic oxecmk4602/26/2022ramp in lower leg associated with rest06/27/2018 Encounters DateTypeDepartmentCare AwcwWjrgdbtkoxh88/06/2025Orders Only [facility] at [facility] [address] [place] [address] Angela Noe MA Paroxysmal atrial fibrillation (CMS/HCC) (Primary Dx)from Last 3 Months Social History Tobacco UseTypesPacks/DayYears UsedDateSmoking Tobacco: Never AssessedSex and Gender InformationValueDate RecordedSex Assigned at MnlyuYhaf01/30/2025 2:37 PM EDTLegal SnpQkzr9105/26/2022 10:58 PM EDTGender QrgvynyiDggt28/30/2025 2:37 PM EDT Sexual OrientationHeterosexual or Odywotyn46/30/2025 2:37 PM EDT Plan of Treatment Health MaintenanceDue DateLast DoneCommentsCT Jgktcxogoesf1952FIT-DNA 1950FIT1950FOBT1952Medicare Annual Wellness (AWV)1950 Hhjwmhlwuwqzj1952epression Dcexqdbvv06/25/1964Adult Vkidqfc4302/26/2002 02/27/1992Fall Risk Fnwjojocg09/25/2017COVID-19 Vaccine ( season) 5112/19/2021, 02/02/2022, 01/29/2021, Additional history exists Kqnzkpbyuvq45/07/203204/2Colorectal Cancer Cljhinusf12/07/2032Zoster MqzpjrvyTblezptls86/29/2020, 01/28/2020Pneumococcal Vaccine: 50+ YearsCompleted 02/03/2024, 01/28/2020, 05/31/2019, Additional history existsInfluenza Vaccine Fbzuhiixw77/01/2025, 02/03/2024, 10/19/2022, Additional history existsHIB VaccinesAged OutNo [...] Team MemberRelationshipSpecialtyStart DateEnd Radames Mart MD [address] [facility] [address] [place] [address] PCP - GeneralInternal Vsvpwsiz31/20/25
--- OUTSIDE RECORDS SUMMARY | 2025-11-19 11:39 | XMS_ITS | Patient Health Record ---
Author Organization [facility] [place] Address [address] [place] [address] Care Team Providers Care Nanosystems Engineer Name Role Phone Radames Mart MD Primary Care Provider Josue Rincon [phone] Allergies Allergen (clinical drug ingredient) Drug/Non Drug Allergy documented on EMR Reaction Allergy Type Onset Date Status dust (uncoded)UnknownAllergyActive Reason For Referral No Information Medications Medication [...] a day; Duration: 30 day(s)* Lot # [id number], Expiration Date: Not-TakingOrgovyx 120 MG1 tablet Orally [...] containing alcohol in the past year?Weekly (3 points)Mettih4AxqzzujshcgenuCxyqpqtqMGBJH-S (Standard) Question Answer Notes Did you have [...] year?2 to 3 times a week (3 points)Fcxdix9Mzndzvvubzvtuu Negative Problems Problem Type SNOMED Code ICD Code Onset Dates Problem Status W/U Status Risk Notes Problem Fnypj-we-lxdnuae hyp oxemic respiratory failure (53636754641563447) Acute and chronic respiratory failure with hypoxia (J96.21) ActiveconfirmedProblemMalignant tumor of prostate (037050998)Prostate cancer (C61)ActiveconfirmedProblemAcute exacerbation of chronic obstructive airways disease (754607062)COPD exacerbation (J44.1)ActiveconfirmedProblemConstipation (83620922)Constipation (K59.00)ActiveconfirmedProblemAtrial fibrillation (46670490)PAF (paroxysmal atrial fibrillation) (I48.0)ActiveconfirmedProblem Benign prostatic hypertrophy with outflow obstruction (846257229)BPH loc w urin obs/LUTS (N40.1)VwvizrbrzmgvlggHdtqzbtVpyax-vu-zvlpxyo hypercapnic respiratory failure (disorder) (8733027003825)Acute on chronic respiratory failure with hypercapnia (J96.22)Activeconfirmed Encounters Encounter Location Date Provider Diagnosis Urology [address] [place] [address] 06/10/2025 Josue Castro Elevated PSA R97.20 Assessments [...] End Date [place] [address] [place] [address] [id number] Tunde QuezadaSelf - patient is the [id number] 2017[facility] [address] [place] [id number], Tunde Self - patient is the [id number] 2017 Medical (General) History Medical History History ICD Code Covid-16 December 2020 COPD- on oxygenDepressionhigh cholesterolHistory of DVTBPH loc w urin obs/LUTS N40.1Elevated PSAR97.20Prostate bfmnjdB95Ljpkcvsv History Surgery Date(Month/Year) heart stents hernia surgeryFusion prostate biopsy
[2025-11-19 11:48] LABS: Hematocrit 32.2 % (42.0-54.0); Hemoglobin 9.3 g/dL (14.0-18.0); Immature Granulocytes Abs Auto 0.09 10^3/uL (0.00-0.03); Immature Granulocytes Pct Auto 0.6 % (0.0-0.5); Lymphocytes Absolute Auto 2.2 10^3/uL (1.2-3.8); Mean Corpuscular HGB Conc 28.9 g/dL (29.9-35.2); Mean Corpuscular Hemoglobin 27.9 pg (25.9-34.0); Mean Corpuscular Volume 96.7 fL (80.0-94.0); Platelet Count 343 10^3/uL (150-450); Red Blood Count 3.33 10^6/uL (4.70-6.10); White Blood Count 14.3 10^3/uL (4.0-11.0)
[2025-11-19] MEDS: IPRATROPIUM/ALBUTEROL SULFATE 3 ML AMPUL.NEB IH (11:50)
[2025-11-19 11:56] LABS: PO2 ABG 62.9 mmHg (80.0-100.0)
[2025-11-19 11:57] LABS: Allen Test POSITIVE (POSITIVE); HCO3 ABG 44.3 mmol/L (22.0-26.0); O2 Mode BIPAP
[2025-11-19 11:57] LABS: INR 1.05; Partial Thromboplastin Time 23.2 sec (22.3-36.2); Prothrombin Time 11.0 sec (9.0-11.6)
[2025-11-19 11:58] LABS: Alanine Aminotransferase 26 U/L (16-63); Albumin Globulin Ratio 0.7; Albumin Level 2.7 g/dL (3.4-5.0); Alkaline Phosphatase 84 U/L (46-116); Anion Gap 6.0; Aspartate Amino Transferase 23 U/L (15-37); Blood Urea Nitrogen 27.0 mg/dL (7.0-18.0); Calcium 8.8 mg/dL (8.5-10.1); Carbon Dioxide 44.2 mmol/L (21.0-32.0); Chloride 100 mmol/L (98-107); Estimated GFR (African America >60 (>=60 mL/min/1.73m^2); Estimated GFR (Non-African Ame >60 (>=60 mL/min/1.73m^2); Globulin 3.9 g/dL; Glucose 124 mg/dL (74-106); Potassium 4.2 mmol/L (3.5-5.1); Sodium 146 mmol/L (136-145); Total Protein 6.6 g/dL (6.4-8.2)
[2025-11-19 11:58] LABS: BIPAP Pressure 14/7; Puncture Site LR; Rate 16
[2025-11-19 11:59] LABS: ABG PCO2 62.4 mmHg (35.0-45.0)
[2025-11-19 12:05] LABS: NT Pro B Type Natriuretic Pept 336.0 pg/mL (<=900.0)
--- NOTE | 2025-11-19 12:06 | ED.GENADUL1 ---
HPI HPI - General Adult General Chief complaint: Shortness of Breath/Dyspnea Stated complaint: SOB Time Seen by Provider: 11/19/25 11:37 Source: patient and caregiver Mode of arrival: ambulance Limitations: no limitations History of Present Illness HPI narrative: Patient is a 75-year-old male who is presenting by EMS secondary to shortness of breath. Patient currently living at the [facility]. Patient has a history of COPD and CHF. Patient states he went to breakfast this morning, and he is becoming more short of breath. Patient does wear 4 L of nasal cannula at all times. Patient has had BiPAP in the past, he has never been intubated. Patient does not ever want to be intubated. 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 Patient's internal medicine physician is Dr. Mart. Patient does not want to be admitted to the hospital. Patient has no abdominal pain nausea or vomiting. No significant chest pain or tightness. No other acute complaints. Patient has no unilateral leg swelling, no new swelling to lower extremities. Patient was hypoxic at nursing facility in the 60s. Patient had a DuoNeb breathing treatment and Solu-Medrol prior to arrival. Patient is feeling better after DuoNeb breathing treatment prior to arriving to the ER. Patient came to the ER on a nonrebreather, patient was placed on BiPAP when patient arrived initially, his oxygen had improved into the low 80s. Unless otherwise stated in this report or unable to obtain because of the patient's clinical or mental status as evidenced by medical record, the patient's positive and negative responses for review of systems for constitutional, eyes, ENT, cardiovascular, respiratory, gastrointestinal, neurological, , musculoskeletal, and integument systems and related systems to the presenting problem are either stated in the history of present illness or were not pertinent or were negative for the symptoms and/or complaints related to the presenting medical problem. Nurses note and vital signs reviewed and patient is not hypoxic. Patient is speaking in full sentences with BiPAP mask on. Patient is stating that he wants to go back to the [facility] and he does not want to be admitted to the hospital. Patient states the food is better at [facility] in the hospital which patient and myself and nurse at bedside Michelle DOWNING last. General: The patient appears mild distress secondary to difficulty breathing. Patient is resting uncomfortably on cart. Patient is not toxic, lethargic, or listless Skin: Warm, dry, no pallor noted. There is no rash noted. No petechiae, purpura. Head: Normocephalic, atraumatic Eye: Normal conjunctiva, no drainage, EOMI. PERRL Ears, Nose, Mouth, and Throat: oral mucosa is moist. Nares patent. Mouth without vesicles. Cardiovascular: Regular Rate and Rhythm, no murmur, gallop, rub Respiratory: Patient is in no distress, no accessory muscle use, lungs are clear to auscultation, no wheezing, rales or rhonchi Back: non-tender, no CVA tenderness bilaterally to percussion. No CT LS midline pain GI: no tenderness to palpation, no masses appreciated. No rebound, guarding, or rigidity noted. No distention Musculoskeletal: Patient has full range of motion of all of the extremities, no motor, sensory, or focal neurological deficits. Chronic 1-2+ pitting edema to bilateral lower extremities, no unilateral swelling. No rash. No pain at posterior aspects of bilateral lower extremities. Neurological: A&O x4, normal speech Psychiatric: Cooperative Related Data Home Medications ?Medication ?Instructions ?Recorded ?Confirmed ezetimibe 10 mg-simvastatin 40 mg 1 tab PO DAILY 09/06/25 11/19/25 tablet (Vytorin) ipratropium 0.5 mg-albuterol 3 mg 3 ml inhalation Q4H PRN shortness 09/06/25 11/19/25 (2.5 mg base)/3 mL nebulization of breath or wheezing soln mirtazapine 30 mg tablet 30 mg PO HS 09/06/25 11/19/25 omeprazole 20 mg capsule,delayed 20 mg PO .unknown 09/06/25 11/19/25 release alprazolam 0.25 mg tablet 0.5 mg PO BID PRN anxiety 11/19/25 11/19/25 budesonide 160 mcg-glycopyr 9 2 inh inhalation BID 11/19/25 11/19/25 mcg-formot 4.8 mcg/actuation HFA inhaler (Breztri Aerosphere) buspirone 5 mg tablet 5 mg PO BID 11/19/25 11/19/25 guaifenesin 600 mg tablet, 600 mg PO BID 11/19/25 11/19/25 extended release 12 hr (Mucinex) insulin aspart U-100 100 unit/mL 3 - 15 unit subcut AC 11/19/25 11/19/25 (3 mL) subcutaneous pen (Novolog FlexPen U-100 Insulin aspart) ipratropium 0.5 mg-albuterol 3 mg 3 ml inhalation Q6H 11/19/25 11/19/25 (2.5 mg base)/3 mL nebulization soln linaclotide 72 mcg capsule 72 mcg PO DAILY 11/19/25 11/19/25 (Linzess) lorazepam 0.5 mg tablet (Ativan) 0.5 mg PO DAILY 11/19/25 11/19/25 polyethylene glycol 3350 17 17 g PO DAILY 11/19/25 11/19/25 gram/dose oral powder (ClearLax) sennosides 8.6 mg tablet (Beatrice-nina) 17.2 mg PO DAILY 11/19/25 11/19/25 torsemide 10 mg tablet 20 mg PO QD 11/19/25 11/19/25 Previous Rx's ?Medication ?Instructions ?Recorded apixaban 5 mg tablet (Eliquis) 5 mg PO BID 30 days #60 tabs 09/17/25 sennosides 8.6 mg-docusate sodium 1 tab PO QD PRN Constipation 10 09/17/25 50 mg tablet days #10 tabs aspirin 81 mg tablet,delayed 81 mg PO QD #0 tabs 10/23/25 release dextromethorphan-guaifenesin 10 15 ml PO TID PRN Cough #237 mL 10/23/25 mg-100 mg/5 mL oral syrup diltiazem HCl 180 mg 180 mg PO QD #0 caps 10/23/25 capsule,extended release 24 hr folic acid 1 mg tablet 1 mg PO QD #0 tabs 10/23/25 glucagon 1 mg solution for 1 mg IV Q15M PRN Hypoglycemia #0 ea 10/23/25 injection (Glucagon Emergency Kit) potassium chloride 10 mEq 10 meq PO DAILY #30 caps 10/23/25 capsule,extended release thiamine mononitrate (vit B1) 100 100 mg PO DAILY #0 tabs 10/23/25 mg tablet Allergies Allergy/AdvReac Type Severity Reaction Status Date / Time No Known Drug Allergies Allergy Verified 11/19/25 11:31 Opioid HPI Opioid Management Most Recent Opioid Data: Last Pain Scale 0 10/23/25, 11:25 Last Pain Intensity 0 10/23/25, 11:25 Last ORT Total Score 0 10/17/25, 23:40 Last ORT Risk Category Low Risk 10/17/25, 23:40 Ur Phencyclidine Scrn, (NEGATIVE) Negative 09/07/25, 23:30 PFSH PFSH Medical History (Updated 11/19/25 @ 14:42 by Baldev Valverde MD) History of bilevel positive airway pressure (BiPAP) therapy ?Z92.89 - Personal history of other medical treatment (ICD-10) Hallucination, visual ?R44.1 - Visual hallucinations (ICD-10) Hallucination ?R44.3 - Hallucinations, unspecified (ICD-10) New onset a-fib ?I48.91 - Unspecified atrial fibrillation (ICD-10) Cancer ?C80.1 - Malignant (primary) neoplasm, unspecified (ICD-10) Family History Son No problems noted. Sister Cancer Sister Cancer Stroke Mother Myocardial infarct Father Myocardial infarct Social History Within the past year, how often did you have a drink containing alcohol: never Within the past year, how often did you have six or more drinks on one occasion: never Score interpretation: A score less than 4 is consistent with normal alcohol consumption. 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 Known occupational exposures/hazards: Yes Highest level of school completed/degree received: high school graduate Are you now , , , , never or living with a partner: Little interest or pleasure in doing things: not at all Feeling down, depressed, or hopeless: not at all Exam Constitutional Vital Signs, click to edit/add: Last Vital Signs Temp 97.5 F L 11/19/25 11:27 Pulse 81 11/19/25 14:00 Resp 20 11/19/25 14:00 BP 115/65 11/19/25 14:18 Pulse Ox 93 L 11/19/25 14:19 O2 Del Method Nasal Cannula 11/19/25 14:19 O2 Flow Rate 5 11/19/25 14:19 FiO2 35 11/19/25 11:51 Course Vital Signs Vital signs: Vital Signs Temperature 97.5 F L 11/19/25 11:27 Pulse Rate 107 H 11/19/25 11:27 Respiratory Rate 28 H 11/19/25 11:27 Blood Pressure 130/94 H 11/19/25 11:27 Pulse Oximetry 85 L 11/19/25 11:27 Oxygen Delivery Method Room Air 11/19/25 11:27 Temperature 97.5 F L 11/19/25 11:27 Pulse Rate 81 11/19/25 14:00 Respiratory Rate 20 11/19/25 14:00 Blood Pressure 115/65 11/19/25 14:18 Pulse Oximetry 93 L 11/19/25 14:19 Oxygen Delivery Method Nasal Cannula 11/19/25 14:19 Oxygen Delivery Flow Rate 5 11/19/25 14:19 Fraction of Inspired Oxygen 35 11/19/25 11:51 Medical Decision Making MDM Narrative Medical decision making narrative: Patient seen and examined: ABG, chest x-ray, additional DuoNeb on top of DuoNeb and Solu-Medrol given by EMS staff. BiPAP, oxygen and treatment of hypoxia and hypercarbia. Differential diagnosis includes but is not limited to: Hypoxia, hypercarbia, CHF, pneumonia, pneumothorax, CA. Relevant laboratory interpretation: White blood cell count 14, H&H is 9/32. Patient's ABG with pH 7.46, CO2 62, O2 62; sodium 146, carbon oxide 44, BUN and creatinine 27/1.08. Radiological studies: Chest x-ray Reevaluation: EKG interpretation. Sinus tachycardia at 100. Normal axis deviation. Artifact noted. QTc of 373. 1430 patient is doing significantly better. Patient has been taken off BiPAP. Patient is wearing 4 to 5 L nasal cannula. Patient speaking full sentences well with no difficulty. is at bedside. had talked to staff at the [facility], and it was noted by nursing staff that his CPAP machine was not connected correctly at evening time. Patient states that he noticed a difference maybe last 4 to 5 days of his oxygen flow and breathing and did not see anything to staff. and patient will talk to staff and they will double check tubing and hoses and make sure that connections are accurate with patient CPAP machine at nighttime. Patient adamantly stated he did not want to be admitted to the hospital when he arrived, patient has been eating and drinking, patient very happy, has 0 complaints and wants to be discharged. Patient does not want a repeat a venous blood gas. Patient pH was 7.46, patient's CO2 was in the 60s. Patient's carbon oxide level is normally in the 60s. states that his CO2 levels were normal in the 60s. Patient looks well, feels well, subtle changes on lab testing but patient is aware after we discussed the CBC, CMP, electrolytes, and patient wants to be discharged now. states that she cannot take him back, safer to have him go back by wheelchair van. Social barriers to healthcare: There are no food insecurities, there is no issue with transportation, there are no insurance barriers. Chest x-ray shows: CLINICAL HISTORY: Increasing shortness of breath COMPARISON: None The cardiac and mediastinal contours are similar. There is no vascular congestion. There is minimal atelectasis or scarring. No developing consolidation is noted. There is no effusion or pneumothorax. The osseous structures are intact. XR/XR chest 1V IMPRESSION: MINOR CHRONIC CHANGES. NO ACUTE FINDINGS Patient felt significant better after he was on BiPAP. Patient's had spoken to the staff at [facility], and it was noted how the pipes and tubings and cords were not hooked up accurately the patient's CPAP machine and patient has not been getting sufficient oxygen nightly which may have led to hypoxia and hypercarbia today. Patient stated when he first got here, he was not going to be admitted to the hospital overnight and he was correct. Patient feels significantly better. Patient's is at bedside. Patient will be discharged. Patient has been eating and drinking with no difficulty. Patient will be sent back to the [facility] and patient and his will be speaking with staff making sure that his respiratory devices are hooked up accurately tonight. Patient was on BiPAP several hours in the ER. Critical care time 32 minutes exclusive from separate billable procedures that were performed. The following was considered in the determination of critical care but not limited to the level of medical decision making, intensive cardiac and/or respiratory monitoring, frequent vital sign monitoring, evaluation of laboratory studies, evaluation of radiographic studies, oxygen monitoring, and constant monitoring and speaking to family at bedside Lab Data Labs: Lab Results 11/19/25 11/19/25 Range/Units 09:44 11:30 WBC 14.3 H (4.0-11.0) 10^3/uL RBC 3.33 L (4.70-6.10) 10^6/uL Hgb 9.3 L (14.0-18.0) g/dL Hct 32.2 L (42.0-54.0) % MCV 96.7 H (80.0-94.0) fL MCH 27.9 (25.9-34.0) pg MCHC 28.9 L (29.9-35.2) g/dL RDW 15.4 H (11.0-15.0) % Plt Count 343 (150-450) 10^3/uL MPV 9.9 (9.5-13.5) fL Neut % (Auto) 74.3 (43.0-75.0) % Lymph % (Auto) 15.1 L (20.5-60.0) % [place] % (Auto) 8.9 (1.7-12.0) % Eos % (Auto) 0.8 L (0.9-7.0) % Baso % (Auto) 0.3 (0.2-2.0) % Neut # (Auto) 10.6 H (1.4-6.5) 10^3/uL Lymph # (Auto) 2.2 (1.2-3.8) 10^3/uL [place] # (Auto) 1.3 H (0.3-0.8) 10^3/uL Eos # (Auto) 0.1 (0.0-0.7) 10^3/uL Baso # (Auto) 0.0 (0.0-0.1) 10^3/uL Abs Immat Gran (auto) 0.09 H (0.00-0.03) 10^3/uL Imm/Tot Granulo (auto) 0.6 H (0.0-0.5) % PT 11.0 (9.0-11.6) sec INR 1.05 APTT 23.2 (22.3-36.2) sec Puncture Site Lr ABG pH 7.460 H (7.350-7.450) ABG pCO2 62.4 H* (35.0-45.0) mmHg ABG pO2 62.9 L (80.0-100.0) mmHg ABG HCO3 44.3 H (22.0-26.0) mmol/L ABG O2 Saturation 62.9 % ABG Base Excess 20.5 H (-2.0-2.0) mmol/L Hemant Test Positive (POSITIVE) Minute Volume 13.7 FiO2 35 % Tidal Volume 735 Pressure Support 7 BiPAP 14/7 Sodium 146 H (136-145) mmol/L Potassium 4.2 (3.5-5.1) mmol/L Chloride 100 (98-107) mmol/L Carbon Dioxide 44.2 H (21.0-32.0) mmol/L Anion Gap 6.0 BUN 27.0 H (7.0-18.0) mg/dL Creatinine 1.08 (0.70-1.30) mg/dL Est GFR ( Amer) >60 (>=60 mL/min/1.73m^2) Est GFR (Non-Af Amer) >60 (>=60 mL/min/1.73m^2) BUN/Creatinine Ratio 25.0 Glucose 124 H (74-106) mg/dL Calcium 8.8 (8.5-10.1) mg/dL Total Bilirubin 0.5 (0.2-1.0) mg/dL AST 23 (15-37) U/L ALT 26 (16-63) U/L Alkaline Phosphatase 84 (46-116) U/L Troponin I High Sens 11.6 (4.0-76.1) pg/mL NT-Pro-B Natriuret Pep 336.0 (<=900.0) pg/mL Total Protein 6.6 (6.4-8.2) g/dL Albumin 2.7 L (3.4-5.0) g/dL Globulin 3.9 g/dL Albumin/Globulin Ratio 0.7 Discharge Plan Discharge Chief Complaint: Shortness of Breath/Dyspnea Clinical Impression: Acute on chronic respiratory failure with hypoxia and hypercapnia, Chronic anemia Patient Disposition: Home, Self-Care Condition: Good Prescriptions / Home Meds: No Action diltiazem HCl 180 mg Capsule,Extended Release 24hr 180 mg PO QD Qty: 0 0RF aspirin 81 mg Tablet,Delayed Release (Dr/Ec) 81 mg PO QD Qty: 0 0RF dextromethorphan-guaifenesin 10-100 mg/5 mL Syrup 15 ml PO TID PRN (Reason: Cough) Qty: 237 0RF folic acid 1 mg Tablet 1 mg PO QD Qty: 0 0RF Glucagon Emergency Kit (human) 1 mg Recon Soln 1 mg IV Q15M PRN (Reason: Hypoglycemia) Qty: 0 0RF thiamine mononitrate (vit B1) 100 mg Tablet 100 mg PO DAILY Qty: 0 0RF potassium chloride 10 mEq capsule, extended release 10 meq PO DAILY Qty: 30 0RF lorazepam [Ativan] 0.5 mg tablet 0.5 mg PO DAILY Breztri Aerosphere 160-9-4.8 mcg/actuation HFA aerosol inhaler 2 inh inhalation BID buspirone 5 mg tablet 5 mg PO BID ipratropium-albuterol 0.5 mg-3 mg(2.5 mg base)/3 mL solution for nebulization 3 ml inhalation Q6H Linzess 72 mcg capsule 72 mcg PO DAILY polyethylene glycol 3350 [ClearLax] 17 gram/dose powder 17 g PO DAILY guaifenesin [Mucinex] 600 mg tablet extended release 12hr 600 mg PO BID sennosides [Beatrice-nina] 8.6 mg tablet 17.2 mg PO DAILY torsemide 10 mg tablet 20 mg PO QD alprazolam 0.25 mg Tablet 0.5 mg PO BID PRN (Reason: anxiety) insulin aspart U-100 [Novolog FlexPen U-100 Insulin] 100 unit/mL (3 mL) Insulin Pen 3 - 15 unit subcut AC Rx Instructions: 141-200 = 3 u 201-250 = 5 u 251-300 = 8 u 201-350 = 12 u 351-400 = 15 u > 400 = 15 u & call ipratropium-albuterol 0.5 mg-3 mg(2.5 mg base)/3 mL solution for nebulization 3 ml INHALATION Q4H PRN (Reason: shortness of breath or wheezing) mirtazapine 30 mg tablet 30 mg PO HS omeprazole 20 mg capsule,delayed release(DR/EC) 20 mg PO .unknown ezetimibe-simvastatin [Vytorin 10-40] 10-40 mg tablet 1 tab PO DAILY sennosides-docusate sodium 8.6-50 mg Tablet 1 tab PO QD PRN (Reason: Constipation) 10 Days Qty: 10 0RF Eliquis 5 mg tablet 5 mg PO BID 30 Days Qty: 60 1RF Print Language: Haitian Instructions: Anemia (ED), Hypoxia (ED), Acute Respiratory Failure (ED) Additional Instructions: Discussed with nursing staff and double check to make sure respiratory machines are connected correctly this evening as discussed at bedside. Continue medications as prescribed. Happy holidays!!!!!!! Referrals: [facility] [Primary Care Provider, Internal Medicine] - 1 week Discharge Date/Time: 11/19/25 15:20
[2025-11-20 02:52] LABS: A. calcoaceticus-baumannii Cpx NOT DETECTED (NOT DETECTE); Bacteroides fragilis NOT DETECTED (NOT DETECTE); Candida auris NOT DETECTED (NOT DETECTE); Candida glabrata NOT DETECTED (NOT DETECTE); Enterobacterales NOT DETECTED (NOT DETECTE); Enterococcus faecium NOT DETECTED (NOT DETECTE); Klebsiella aerogenes NOT DETECTED (NOT DETECTE); Klebsiella pneumoniae group NOT DETECTED (NOT DETECTE); Proteus spp. NOT DETECTED (NOT DETECTE); Salmonella spp. NOT DETECTED (NOT DETECTE); Serratia marcescens NOT DETECTED (NOT DETECTE); Source BLOOD; Staphylococcus epidermidis NOT DETECTED (NOT DETECTE); Staphylococcus lugdunensis NOT DETECTED (NOT DETECTE); Staphylococcus spp. NOT DETECTED (NOT DETECTE); Stenotrophomonas maltophilia NOT DETECTED (NOT DETECTE); Streptococcus pyogenes NOT DETECTED (NOT DETECTE); Streptococcus spp. NOT DETECTED (NOT DETECTE)
[2025-11-20 04:04] LABS: vanA/B NOT DETECTED (NOT DETECTE)
[2025-11-20 04:11] LABS: Enterococcus faecalis DETECTED (NOT DETECTE)
[2025-11-20 09:29] LABS: Oxygen Saturation ABG 94.1 %
== END 2025-11-19 15:20 | disposition home or self-care (01) ==
PROVIDERS: Emergency Provider Emergency Medicine; PCP Internal Medicine
DX: J96.22 Acute and chronic respiratory failure with hypercapnia (principal); J96.21 Acute and chronic respiratory failure with hypoxia; D64.9 Anemia, unspecified; J44.9 Chronic obstructive pulmonary disease, unspecified; I50.9 Heart failure, unspecified; Z99.81 Dependence on supplemental oxygen; Z87.891 Personal history of nicotine dependence
CPT/HCPCS: 36415; 36600; 71045; 80053; 82805; 83880; 84484; 85025; 85610; 85730; 87040; 87150; 93005; 94640; 94660; 99284